=== PATIENT | female | born 1990 | race Caucasian/White ===

== ENCOUNTER 2023-02-22 21:21 | Outpatient (REF) | payer OTHER, SELFPAY ==
[2023-02-27 12:08] LABS: Age Gdln ACOG Testing Note (.); HPV Aptima Negative (Negative); IGP, Aptima HPV, rfx 16/18,45 Note (.)
== END 2023-02-22 21:22 | disposition home or self-care (01) ==
LOC: LAB 21:21
PROVIDERS: Visit Provider Obstetrics & Gynecology
DX: Z01.419 Encounter for gynecological examination (general) (routine) without abnormal findings (principal)
CPT/HCPCS: G0145

== ENCOUNTER 2024-03-23 12:28 | Outpatient (OUT) | payer OTHER, SELFPAY ==
[2024-03-23 13:15] LABS: HCG Quantitative 32 mIU/mL
== END 2024-03-23 12:29 | disposition home or self-care (01) ==
LOC: LAB 12:29
PROVIDERS: Visit Provider Obstetrics & Gynecology
DX: N92.6 Irregular menstruation, unspecified (principal)
CPT/HCPCS: 36415; 84702

== ENCOUNTER 2024-03-25 12:27 | Outpatient (OUT) | payer OTHER, SELFPAY ==
--- OUTSIDE RECORDS SUMMARY | 2024-03-25 12:31 | XMS_ITS | CCD ---
Author Organization [facility] CliniSymt Care Team Providers Care Esthetician Name Role Phone NEFTALY, DR COCHRAN Attending Unavailable REQUEST, DR TALBOT LISTED Primary Care Unavaila ble NEFTALY, DR COCHRAN Admitting Unavailable NEFTALY, DR COCHRAN Admitting Unavailable REQUEST, DR TALBOT LISTED Primary Care Unavaila ble NEFTALY, DR COCHRAN Attending Unavailable NEFTALY, DR COCHRAN Attending Unavailable NEFTALY, DR COCHRAN Admitting Unavailable REQUEST, NONE LISTED Primary Care Unavaila ble NEFTALY, DR COCHRAN Admitting Unavailable NEFTALY, DR COCHRAN Attending Unavailable REQUEST, NONE LISTED Primary Care Unavaila ble NEFTALY, DR COCHRAN Consulting Unavailable NEFTALY, DR COCHRAN Admitting Unavailable NEFTALY, DR COCHRAN Attending Unavailable REQUEST, DR TALBOT LISTED Primary Care Unavaila ble KARASIPavan, DR LOTT Consulting Unavailable MARENGO, DR POLLO Gonzalez Consulting Unavailable NEFTALY, DR COCHRAN Consulting Unavailable NEFTALY, DR COCHRAN Procedure Practitioner Unavailab RICCARDO Crespo Consulting Unavailable BEATRIZ, DR LOTT Consulting Unavailable REQUEST, DR TALBOT LISTED Primary Care Unavaila ble KARBRIT, DR LOTT Admitting Unavailable KARASIK, DR LOTT Attending Unavailable REQUEST, DR TALBOT LISTED Primary Care Unavaila RICCARDO Alejo Admitting Unavailable RICCARDO GARNER Attending Unavailable NEFTALY, DR COCHRAN Consulting Unavailable SOPHIA, DR SCOTT Daniels Consulting Unavailable RICCARDO GARNER Consulting Unavailable REQUEST, DR TALBOT LISTED Primary Care Unavaila RICCARDO Alejo Consulting Unavailable RICCARDO GARNER Admitting Unavailable RICCARDO GARNER Attending Unavailable NEFTALY, DR COCHRAN Admitting Unavailable NEFTALY, DR COCHRAN Attending Unavailable REQUEST, DR TALBOT LISTED Primary Care Unavaila ble NeftalySammie carranza DO Unavailable Medications Current Medications Medication Drug Class(es) Dates Sig (Normalized) Sig (Original) Progesterone 200 MG suppository (1 source) Start: 2024 End: 04-20-2024 Progesterone 200 MG suppository Indications: History of miscarriage Insert 200 mg into the vagina at bedtime Insert suppository vaginally every night at bedtime until 12 weeks gestation 30 suppository 2024 04/20/2024 Active Problems Active Problems Problem Classification Problem Date Documented Date Episodic/Chronic Headache; including migraine (1 source) Headache; including migraine; Translations: [HEADACHE UNSPECIFIED] Onset: 12-22-2020 Immunizations and screening for infectious disease (1 source) Encounter for screening for human papillomavirus (HPV); Translations: [ENC SCREENING HUMAN PAPILLOMAVIRUS] Onset: 09-20-2021 Episodic Other screening for suspected conditions (not mental disorders or infectious disease) (4 sources) Encounter for screening for malignant neoplasm of cervix; Translations: [ENC SCREENING MALIG NEOPLASM CERV] Onset: 09-16-2021 Episodic Unclassified (1 source) CONTACT W/AND (SUSP) EXPOS COVID-19; Translations: [CONTACT W/AND (SUSP) EXPOS COVID-19] Onset: 12-22-2020 Past or Other Problems Problem Classification Problem Date Documented Da te Episodic/Chronic Diabetes or abnormal glucose tolerance complicating ; childbirth; or the puerperium (6 sources) Gestational diabetes mellitus in childbirth, diet controlled; Translations: [Gestational diabetes mellitus in , diet controlled] Onset: 12-03-2020 Episodic Hypertension complicating ; childbirth and the puerperium (3 sources) Unspecified pre-eclampsia, complicating childbirth; Translations: [UNSPECIFIED PRE-ECLAMPSIA COMP CB] Onset: 12-08-2020 Episodic OB-related trauma to perineum and vulva (1 source) First degree perineal laceration during delivery; Translations: [FIRST DEG PERINEAL LAC DUR DELIV] Onset: 12-22-2020 Episodic Other complications of ; puerperium affecting management of mother (1 source) Abnormality in heart rate and rhythm complicating labor and delivery; Translations: [ABN FETL HEART RATE RHYTHM COMP L AND D] Onset: 12-22-2020 Episodic Other complications of (4 sources) Supervision of other high risk pregnancies, third trimester; Translations: [SUP OTH HIGH RISK 3RD TRI] Onset: 12-01-2020 Episodic Other complications of (4 sources) Supervision of with history of pre-term labor, third trimester; Translations: [SUP PREG W/HX PRE-TERM LABR 3RD TRI] Onset: 11-27-2020 Episodic Other and delivery including normal (1 source) Single live ; Translations: [SINGLE LIVE ] Onset: 12-22-2020 Episodic Residual codes; unclassified (1 source) 36 weeks gestation of ; Translations: [36 WEEKS GESTATION OF ] Onset: 12-22-2020 Episodic Residual codes; unclassified (1 source) 35 weeks gestation of ; Translations: [35 WEEKS GESTATION OF ] Onset: 12-11-2020 Episodic Residual codes; unclassified (1 source) 34 weeks gestation of ; Translations: [34 WEEKS GESTATION OF ] Onset: 12-02-2020 Episodic Results Test Name Value Interpretation Reference Range Facility [facility] PREG QUANT HCGon 024 HCG QUANTITATIVE 32 mIU/mL [facility] [place] [facility] Comment on above: 5-50 0.2-1 WEEK 50-500 1-2 WEEKS 100-5,000 2-3 WEEKS 500-10,000 3-4 WEEKS 1,000-50,000 4-5 WEEKS 10,000-100,000 5-6 WEEKS 15,000-200,000 6-8 WEEKS 10,000-100,000 2-3 MONTHS [facility] PAP ACOG PANEL 2: 21 to 29on 09-22-2021 . . [facility] Comment on above: Performed By: #### 4 [id number] #### [facility] [address] [address] [address] Yariel Huynh Age Gdln ACOG Testing - Normal [facility] Comment on above: Performed By: #### 4 [id number] #### [facility] [address] [address] [address] Yariel Huynh DIAGNOSIS: Comment [facility] Comment on above: Result Comment: NEGA TIVE FOR INTRAEPITHELIAL LESION OR MALIGNANCY. Performed By: #### 4 [id number] #### [facility] [address] [address] [address] Yariel Huynh Methodology: Comment [facility] Comment on above: Result Comment: This liquid based ThinPrep(R) pap test was screened with the use of an image guided system. Performed By: #### 4 [id number] #### [facility] [address] [place] [address] Dr. Yariel Huynh Note: Comment Normal [facility] Comment on above: Result Comment: The Pap smear is a screening test designed to aid in the detection of premalignant and malignant conditions of the uterine cervix. It is not a diagnostic procedure and should not be used as the sole means of detecting cervical cancer. Both false-positive and false-negative reports do occur. . Performed By: #### 4 [id number] #### [facility] [address] [place] [address] Dr. Yariel Huynh Performed by: Comment Normal [facility] Comment on above: Result Comment: Carole Lee, [employer] (ASCP) Performed By: #### 4 [id number] #### [facility] [address] [place] [address] Dr. Yariel Huynh Reflex Criteria: Comment Normal [facility] Comment on above: Result Comment: The HPV DNA reflex criteria were not met with this specimen result therefore, no HPV testing was performed. . Performed By: #### 4 [id number] #### [facility] [address] [place] [address] Dr. Yariel Huynh Specimen adequacy: Comment Normal [facility] Comment on above: Result Comment: Sati sfactory for evaluation. Endocervical and/or squamous metaplastic cells (endocervical component) are present. Performed By: #### 4 [id number] #### [facility] [address] [place] [address] Dr. Yariel Huynh RUBELLA AB IGGon 12-10-2020 Rubella Antibodies, IgG 1.46 index Normal Immune >0.[address] [facility] Comment on above: Result Comment: Non- immune <0.90 Equivocal 0.90 - 0.99 Immune >0.99 Performed By: #### R [id number] #### [facility] [address] [place] [address] Clyde Ramachandran CBC AUTO DIFFon 12-09-2020 BASO # 0.1 103/ul Normal 0.0-0.[address] [facility] Comment on above: Performed By: #### 4 [id number] #### [facility] [address] [place] [address] Dr. Yariel Huynh Basophils/100 WBC (Bld) 0.3 % Normal 0.2-2.[address] [facility] Comment on above: Performed By: #### 4 [id number] #### [facility] [address] [place] [address] Dr. Yariel Huynh EO # 0.0 103/ul Normal 0.0-0.[address] [facility] Comment on above: Performed By: #### 4 [id number] #### [facility] [address] [place] [address] Dr. Yariel Huynh Eosinophils/100 WBC (Bld) 0.1 % Critically low 0.9-7.[address] [facility] Comment on above: Performed By: #### 4 [id number] #### [facility] [address] [place] [address] Dr. Yariel Huynh Erythrocyte distribution width (RBC) [Ratio] 13.9 % Normal 11.0-15.[address] [facility] Comment on above: Performed By: #### 4 [id number] #### [facility] [address] [place] [address] Dr. Yariel Huynh Hematocrit (Bld) [Volume fraction] 29.5 % Critically low 36.0-48.[address] [facility] Comment on above: Performed By: #### 4 [id number] #### [facility] [address] [place] [address] Dr. Yariel Huynh Hemoglobin (Bld) [Mass/Vol] 9.3 g/dL Critically low 12.0-16.[address] [facility] Comment on above: Performed By: #### 4 [id number] #### [facility] [address] [place] [address] Dr. Yariel Huynh IG # 0.08 10e3/ul Critically high 0.00-0.03 [facility] Comment on above: Performed By: #### 4 [id number] #### [facility] [address] [place] [address] Dr. Yariel Huynh IG % 0.5 % Normal 0.0-0.[address] [facility] Comment on above: Performed By: #### 4 [id number] #### [facility] [address] [address] [address] Yariel Huynh LYMPH # 1.7 103/ul Normal 1.2-3.[address] [facility] Comment on above: Performed By: #### 4 [id number] #### [facility] [address] [address] [address] Yariel Huynh Lymphocytes/100 WBC (Bld) 10.8 % Critically low 20.5-60.[address] [facility] Comment on above: Performed By: #### 4 [id number] #### [facility] [address] [place] [address] Dr. Yariel Huynh MANUAL DIFF REQ NO Normal [facility] Comment on above: Performed By: #### 4 [id number] #### [facility] [address] [place] [address] Dr. Yariel Huynh MCH (RBC) [Entitic mass] 26.2 pg Critically low 26.7-34.[address] [facility] Comment on above: Performed By: #### 4 [id number] #### [facility] [address] [place] [address] Dr. Yariel Huynh MCHC (RBC) [Mass/Vol] 31.5 g/dL Normal 29.9-35.[address] [facility] Comment on above: Performed By: #### 4 [id number] #### [facility] [address] [place] [address] Dr. Yariel Huynh MCV (RBC) [Entitic vol] 83.1 fL Normal 81.0-99.[address] [facility] Comment on above: Performed By: #### 4 [id number] #### [facility] [address] [place] [address] Dr. Yariel Huynh MONO # 0.8 103/ul Normal 0.3-0.[address] [facility] Comment on above: Performed By: #### 4 [id number] #### [facility] [address] [place] [address] Dr. Yariel Huynh Monocytes/100 WBC (Bld) 5.2 % Normal 1.7-12.[address] [facility] Comment on above: Performed By: #### 4 [id number] #### [facility] [address] [address] [address] Yariel Huynh NEUT # 12.8 103/ul Critically high 1.4-6.5 [facility] Comment on above: Performed By: #### 4 [id number] #### [facility] [address] [address] [address] Yariel Huynh Neutrophils/100 WBC (Bld) 83.1 % Critically high 43.0-75.0 [facility] Comment on above: Performed By: #### 4 [id number] #### [facility] [address] [place] [address] Dr. Yariel Huynh Platelet mean volume (Bld) [Entitic vol] 12.6 fL Normal 9.5-13.5 [facility] Comment on above: Performed By: #### 4 [id number] #### [facility] [address] [place] [address] Dr. Yariel Huynh PLT 203 103/ul Normal 150-450 [facility] Comment on above: Performed By: #### 4 [id number] #### [facility] [address] [place] [address] Dr. Yariel Huynh RBC 3.55 106/ul Critically low 4.20-5.40 [facility] Comment on above: Performed By: #### 4 [id number] #### [facility] [address] [place] [address] Dr. Yariel Huynh WBC 15.4 103/ul Critically high 4.0-11.0 [facility] Comment on above: Performed By: #### 4 [id number] #### [facility] [address] [place] [address] Dr. Yariel Huynh ASYMPTOMATIC COVID-19 ANTIGE Non 12-08-2020 EUA Statement SEE BELOW Normal [facility] Comment on above: Result Comment: This test has not been FDA cleared or approved, but has been authorized by the FDA under an Emergency Use Authorization (EUA) for use by authorized laboratories certified under CLIA that meet the requirements to perform moderate or high complexity testing. This test has been authorized only for the detection of proteins from SARS-CoV-2, not for any other viruses or pathogens. The emergency use of this test is authorized for the duration of the declaration that circumstances exist justifying the authorization of emergency use of in vitro diagnostic tests for detection and/or diagnosis of Covid-19 under section 564(b)(1) of the Act, 21 U.S.C. 360bbb-3(b)(1), unless the declaration is terminated or authorization is revoked sooner. Performed By: #### 4 [id number] #### [facility] [address] [place] [address] Dr. Yariel Huynh SARS-CoV-2 (COVID-19) RNA ESTEBAN+probe Ql (Unsp spec) Negative Normal NEGATIVE [facility] Comment on above: Result Comment: Nega tive results are presumptive. They do not preclude infection and should not be used as the sole basis for treatment decisions. Additional confirmatory testing by a molecular method should be considered. Performed By: #### 4 [id number] #### [facility] [address] [place] [address] Dr. Yariel Huynh BUNon 12-08-2020 Urea nitrogen [Mass/Vol] 15.0 mg/dL Normal 7.0-17.[address] [facility] Comment on above: Performed By: #### 4 [id number] #### [facility] [address] [place] [address] Dr. Yariel Huynh CBC AUTO DIFFon 12-08-2020 BASO # 0.0 103/ul Normal 0.0-0.[address] [facility] Comment on above: Performed By: #### 4 [id number] #### [facility] [address] [place] [address] Dr. Yariel Huynh Basophils/100 WBC (Bld) 0.3 % Normal 0.2-2.[address] [facility] Comment on above: Performed By: #### 4 [id number] #### [facility] [address] [place] [address] Dr. Yariel Huynh EO # 0.0 103/ul Normal 0.0-0.7 [facility] Comment on above: Performed By: #### 4 [id number] #### [facility] [address] [place] [address] Dr. Yariel Huynh Eosinophils/100 WBC (Bld) 0.4 % Critically low 0.9-7.[address] [facility] Comment on above: Performed By: #### 4 [id number] #### [facility] [address] [place] [address] Dr. Yariel Huynh Erythrocyte distribution width (RBC) [Ratio] 13.8 % Normal 11.0-15.[address] [facility] Comment on above: Performed By: #### 4 [id number] #### [facility] [address] [place] [address] Dr. Yariel Huynh Hematocrit (Bld) [Volume fraction] 31.8 % Critically low 36.0-48.[address] [facility] Comment on above: Performed By: #### 4 [id number] #### [facility] [address] [place] [address] Dr. Yariel Huynh Hemoglobin (Bld) [Mass/Vol] 10.1 g/dL Critically low 12.0-16.[address] [facility] Comment on above: Performed By: #### 4 [id number] #### [facility] [address] [place] [address] Dr. Yariel Huynh IG # 0.07 10e3/ul Critically high 0.00-0.03 [facility] Comment on above: Performed By: #### 4 [id number] #### [facility] [address] [place] [address] Dr. Yariel Huynh IG % 0.7 % Critically high 0.0-0.5 [facility] Comment on above: Performed By: #### 4 [id number] #### [facility] [address] [place] [address] Dr. Yariel Huynh LYMPH # 2.3 103/ul Normal 1.2-3.8 [facility] Comment on above: Performed By: #### 4 [id number] #### [facility] [address] [place] [address] Dr. Yariel Huynh Lymphocytes/100 WBC (Bld) 22.7 % Normal 20.5-60.0 [facility] Comment on above: Performed By: #### 4 [id number] #### [facility] [address] [place] [address] Dr. Yariel Huynh MANUAL DIFF REQ NO Normal [facility] Comment on above: Performed By: #### 4 [id number] #### [facility] [address] [place] [address] Dr. Yarile Huynh MCH (RBC) [Entitic mass] 26.7 pg Normal 26.7-34.0 [facility] Comment on above: Performed By: #### 4 [id number] #### [facility] [address] [place] [address] Dr. Yariel Huynh MCHC (RBC) [Mass/Vol] 31.8 g/dL Normal 29.9-35.2 [facility] Comment on above: Performed By: #### 4 [id number] #### [facility] [address] [place] [address] Dr. Yariel Huynh MCV (RBC) [Entitic vol] 84.1 fL Normal 81.0-99.0 [facility] Comment on above: Performed By: #### 4 [id number] #### [facility] [address] [place] [address] Dr. Yariel Huynh MONO # 0.6 103/ul Normal 0.3-0.8 [facility] Comment on above: Performed By: #### 4 [id number] #### [facility] [address] [place] [address] Dr. Yariel Huynh Monocytes/100 WBC (Bld) 6.3 % Normal 1.7-12.0 [facility] Comment on above: Performed By: #### 4 [id number] #### [facility] [address] [place] [address] Dr. Yariel Huynh NEUT # 7.0 103/ul Critically high 1.4-6.5 [facility] Comment on above: Performed By: #### 4 [id number] #### [facility] [address] [place] [address] Dr. Yariel Huynh Neutrophils/100 WBC (Bld) 69.6 % Normal 43.0-75.[address] [facility] Comment on above: Performed By: #### 4 [id number] #### [facility] [address] [place] [address] Dr. Yariel Huynh Platelet mean volume (Bld) [Entitic vol] 12.9 fL Normal 9.5-13.[address] [facility] Comment on above: Performed By: #### 4 [id number] #### [facility] [address] [place] [address] Dr. Yariel Huynh PLT 193 103/ul Normal 150-450 [facility] Comment on above: Performed By: #### 4 [id number] #### [facility] [address] [place] [address] Dr. Yariel Huynh RBC 3.78 106/ul Critically low 4.20-5.40 [facility] Comment on above: Performed By: #### 4 [id number] #### [facility] [address] [place] [address] Dr. Yariel Huynh WBC 10.1 103/ul Normal 4.0-11.[address] [facility] Comment on above: Performed By: #### 4 [id number] #### [facility] [address] [place] [address] Dr. Yariel Huynh CREATININEon 12-08-2020 Creatinine [Mass/Vol] 0.80 mg/dL Normal 0.52-1.[address] [facility] Comment on above: Performed By: #### L DH, URIC, AST, ALT, BUN, CREA #### [facility] [address] [place] [address] Clyde Madie EGFR-AF JAMAICAN >60 Normal >=60 [facility] Comment on above: Performed By: #### L DH, URIC, AST, ALT, BUN, CREA #### [facility] [address] [place] [address] Clyde Madie EGFR-NON AF JAMAICAN >60 Normal >=[address] [facility] Comment on above: Performed By: #### L DH, URIC, AST, ALT, BUN, CREA #### [facility] [address] [place] [address] Clyde Ramachandran DRUG SCREEN RAPID (URINE)on 12-08-2020 AMP Negative Normal NEGATIVE [facility] Comment on above: Performed By: #### 4 [id number] #### [facility] [address] [place] [address] Dr. Yariel Huynh BAR Negative Normal NEGATIVE [facility] Comment on above: Performed By: #### 4 [id number] #### [facility] [address] [place] [address] Dr. Yariel Huynh BUP Negative Normal NEGATIVE [facility] Comment on above: Performed By: #### 4 [id number] #### [facility] [address] [place] [address] Dr. Yariel Huynh BZO Negative Normal NEGATIVE [facility] Comment on above: Performed By: #### 4 [id number] #### [facility] [address] [place] [address] Dr. Yariel Huynh ROSA Negative Normal NEGATIVE [facility] Comment on above: Performed By: #### 4 [id number] #### [facility] [address] [place] [address] Dr. Yariel Huynh CUT-OFFS SEE BELOW Normal [facility] Comment on above: Result Comment: AMP (Amphetamine): 500ng/mL, BAR (Barbituates): 200 ng/mL, BZO (Benzodiazepines): 150 ng/mL, BUP (Buprenorphine): 10 ng/mL, ROSA (Cocaine): 150 ng/mL, mAMP (Methamphetamine): 500 ng/mL, MTD (Methadone): 200 ng/mL, OPI (Opiates): 100 ng/mL, OXY (Oxycodone): 100 ng/mL, PCP (Phencyclidine): 25 ng/mL, PPX (Propoxyphene): 300 ng/mL, THC (Cannabinoids): 50 ng/mL, TCA (Trycyclic Antidepressants): 300 ng/mL Performed By: #### 4 [id number] #### [facility] [address] [place] [address] Dr. Yariel Huynh DRUG CUT HEADER DRUG CLASS TEST SYST EM CUT-OFF CONCENTRATIONS ARE FOLLOWS: Normal [facility] Comment on above: Performed By: #### 4 [id number] #### [facility] [address] [place] [address] Dr. Yariel Huynh mAMP Negative Normal NEGATIVE [facility] Comment on above: Performed By: #### 4 [id number] #### [facility] [address] [place] [address] Dr. Yariel Huynh MTD Negative Normal NEGATIVE [facility] Comment on above: Performed By: #### 4 [id number] #### [facility] [address] [place] [address] Dr. Yariel Huynh OPI Negative Normal NEGATIVE [facility] Comment on above: Performed By: #### 4 [id number] #### [facility] [address] [place] [address] Dr. Yariel Huynh OXY Negative Normal NEGATIVE [facility] Comment on above: Performed By: #### 4 [id number] #### [facility] [address] [place] [address] Dr. Yariel Huynh PCP Negative Normal NEGATIVE [facility] Comment on above: Performed By: #### 4 [id number] #### [facility] [address] [place] [address] Dr. Yariel Huynh PPX Negative Normal NEGATIVE [facility] Comment on above: Performed By: #### 4 [id number] #### [facility] [address] [place] [address] Dr. Yariel Huynh TCA Negative Normal NEGATIVE [facility] Comment on above: Performed By: #### 4 [id number] #### [facility] [address] [place] [address] Dr. Yariel Huynh THC Negative Normal NEGATIVE [facility] Comment on above: Performed By: #### [id number] #### [facility] [address] [place] [address] Dr. Yariel Huynh LDHon 12-08-2020 LDH 163 U/L Normal 122-[address] [facility] Comment on above: Performed By: #### L DH, URIC, AST, ALT, BUN, CREA #### [facility] [address] [place] [id number] Clyde Ramachandran SGOTon 12-08-2020 AST [Catalytic activity/Vol] 15 U/L Normal 14-[address] [facility] Comment on above: Performed By: #### L DH, URIC, AST, ALT, BUN, CREA #### [facility] [address] [place], [place] [id number] Clyde Ramachandran SGPTon 12-08-2020 ALT [Catalytic activity/Vol] 12 U/L Normal 9-52 [facility] Comment on above: Performed By: #### L DH, URIC, AST, ALT, BUN, CREA #### [facility] [address] [place] [address] Clyde Ramachandran TYPE AND SCREENon 12-08-2020 TYPE AND SCREEN Negative Normal [facility] Comment on above: Performed By: #### T NS #### [facility] [address] [place] [address] Clyde Ramachandran URIC ACID SERUMon 12-08-2020 Urate [Mass/Vol] 5.0 mg/dL Normal 2.5-6.2 [facility] Comment on above: Performed By: #### L DH, URIC, AST, ALT, BUN, CREA #### [facility] [address] [place], [place] [id number] Clyde Ramachandran US PREG BIOPHY W NON STRESSo n 12-08-2020 US PREG BIOPHY W NON STRESS EXAMINATION: US PREG BIOPHY W NON STRESS HISTORY: High risk COMPARISON: No relevant comparison available. TECHNIQUE: Ultrasound biophysical profile was performed in the radiology department. non-reactive stress testing was performed by nursing staff in the birthing center. FINDINGS: BREATHING MOVEMENTS: 2.0 GROSS BODY MOVEMENTS: 2.0 TONE: 2.0 QUALITATIVE AMNIOTIC FLUID VOLUME: 2.0 PRESENTATION: Cephalic HEART RATE: 137.8 bpm H.B./min AMNIOTIC FLUID VOLUME: 12.9 cm cm GESTATIONAL AGE: 36 weeks 2 days CONCLUSION: Total biophysical profile score: 8.0 Electronically authenticated by: POLLO PABLO Date: 2020-12-08 08:45 Normal [facility] US PREG BIOPHY W NON STRESSo n 12-01-2020 US PREG BIOPHY W NON STRESS EXAMINATION: US PREG BIOPHY W NON STRESS HISTORY: High risk COMPARISON: Ultrasound biophysical 11/24/2020 TECHNIQUE: Ultrasound biophysical profile was performed in the radiology department. non-reactive stress testing was performed by nursing staff in the birthing center. FINDINGS: BREATHING MOVEMENTS: 2.0 GROSS BODY MOVEMENTS: 2.0 TONE: 2.0 QUALITATIVE AMNIOTIC FLUID VOLUME: 2.0 PRESENTATION: CEPHALIC HEART RATE: 135.7 bpm AMNIOTIC FLUID VOLUME: 16.1 cm GESTATIONAL AGE: 35 weeks 2 days IMPRESSION: Total biophysical profile score: 8.0 Electronically authenticated by: SCOTT CORTES Date: 2020-12-01 10:[address] [facility] Encounters Encounter Date Encounter Type Care Provider Facility Start: 03-23-2024 End: 03-23-2024 Clinisync Result Encounter Sammie Higginbotham DO Work Phone: [facility] Unsolicited Start: 03-23-2024 End: 03-23-2024 Clinisync Result Encounter Sammie Higginbotham DO Work Phone: [facility] Unsolicited Start: 09-16-2021 End: 09-16-[address] SAMMIE HIGGINBOTHAM Facility:[facility] Start: 01-05-[address] SAMMIE HIGGINBOTHAM Facility :[facility] Start: 12-29-[address] SAMMIE HIGGINBOTHAM Facility :[facility] Start: 12-22-[address] SAMMIE HIGGINBOTHAM Facility :[facility] Start: 12-15-[address] SAMMIE HIGGINBOTHAM Facility :[facility] Start: 12-08-2020 End: 12-12-2020 Evaluation and management of inpatient DR SAMMIE HIGGINBOTHAM Facility:[facility] Start: 12-04-2020 End: 12-04-[address] KAYLIE HENDERSON Facility:[facility] Start: 12-01-2020 End: 12-01-2020 ambulatory NONE LISTED REQUEST Facility:[facility] Start: 11-27-2020 End: 11-27-2020 ambulatory NONE LISTED REQUEST Facility: Procedures Date Procedure Procedure Detail Performing Clinician Start: 03-23-2024 [facility] PREG QUANT HCG Core y Neftayl DO Work Phone: Start: 12-08-2020 Delivery of Products of Conception, External Approach DR SAMMIE HIGGINBOTHAM Start: 12-08-2020 Drainage of Amniotic Fluid, Therapeutic from Products of Conception, Via Natural or Artificial Opening DR SAMMIE HIGGINBOTHAM Start: 12-08-2020 Introduction of Othe r Hormone into Peripheral Vein, Percutaneous Approach DR SAMMIE HIGGINBOTHAM Start: 12-08-2020 Repair Perineum Skin , External Approach DR SAMMIE HIGGINBOTHAM Plan of Treatment Date Care Activity Detail Author Start: 03-15-2028 Screening for malign ant neoplasm of cervix [facility] Start: 04-19-2024 End: 04-19-2024 ambulatory 04/19/2024 10:00 AM EST Initial [facility] [address] [place] [address] [facility] Start: 04-19-2024 End: 04-19-2024 Professional / ancillary services management 04/19/2024 9:30 AM EST Ancillary Procedure [facility] [address] [place] [address] [facility] Start: 02-04-2024 Influenza vaccination Influenza Vacc ine (#1) [facility] Start: 2013 Screening for malign ant neoplasm of cervix Pap Smear [facility] Immunizations Immunization Date Immunization Notes Care Provider Khai [facility] 05-09-2019 influenza virus vacc ine, unspecified formulation Sammie Higginbotham DO Work Phone: [facility] Payers Date Payer Category Payer Private Health Insurance [facility] [employer] .[id number] 1992 Unknown [id number] 1992 Unknown [id number] [id number] .593 1992 Unknown [id number] [id number] .593 1992 Unknown [id number] .593 1992 Unknown [id number] [id number] .593 1992 Unknown [id number] [id number] .593 1992 Unknown [id number] [id number] .593 1992 Unknown [id number] [id number] .593 1992 Unknown [id number] [id number] .593 1959 Self-pay [id number] 1959 Unknown [id number] Social History Date Type Detail Facility Tobacco smoking stat [facility] Tobacco smoking consumption unknown [facility] Start: 1992 Sex assigned at Not on file [facility] Gender identity Not [facility] file [facility] are Summary Purpose Family History No Family History Records Found Advance Directives No Advanced Directives Records Found Additional Source Comments INFORMATION SOURCE (unrecogn ized section and content) DATE CREATED AUTHOR 11/24/2021 [facility] Care Teams (unrecognized sec tion and content) Esthetician Relationship Specialty Start Date End Date Sammie Higginbotham DO [address] [place], [place] [address] [address] PCP - [facility] 09/04/23 FOR RECORDS PERTAINING TO PATIENTS WHO ARE OR HAVE BEEN ENROLLED IN A CHEMICAL DEPENDENCY/SUBSTANCEABUSE PROGRAM, SOME INFORMATION MAY BE OMITTED. This clinical summary was aggregated from multiple sources. Caution should be exercised in using it in the provision of clinical care. This summary normalizes information from multiple sources, and as a consequence, information in this document may materially change the coding, format and clinical context of patient data. In addition, data may be omitted in some cases. CLINICAL DECISIONS SHOULD BE BASED ON THE PRIMARY CLINICAL RECORDS. [employer] [facility]. provides no warranty or guarantee of the accuracy or completeness of information in this document.
[2024-03-25 13:46] LABS: HCG Quantitative 22 mIU/mL
== END 2024-03-25 12:28 | disposition home or self-care (01) ==
PROVIDERS: Visit Provider Obstetrics & Gynecology
DX: N92.6 Irregular menstruation, unspecified (principal)
CPT/HCPCS: 36415; 84702

== ENCOUNTER 2024-03-29 06:28 | Outpatient (OUT) | payer OTHER, SELFPAY ==
--- OUTSIDE RECORDS SUMMARY | 2024-03-29 06:31 | XMS_ITS | CCD ---
Author Organization [facility] CliniSyak Care Team Providers Care [employer] Name Role Phone NEFTALY, DR COCHRAN Attending [...] Unavaila ble KARASIPavan, DR LOTT Consulting Unavailable RIVERVIEW, DR POLLO Gonzalez Consulting Unavailable NEFTALY, DR [...] NEFTALY, DR COCHRAN Attending Unavailable REQUEST, DR ATLBOT LISTED Primary Care Unavaila ble NeftalySammie carranza DO Unavailable Medications Current Medications Medication Drug Class(es) Dates Sig (Normalized) Sig (Original) Progesterone 200 MG suppository (2 sources) Start: 2024 End: 04-20-2024 Progesterone 200 MG [...] Test Name Value Interpretation Reference Range Facility [facility] PREG QUANT HCGon 03-25- 024 HCG QUANTITATIVE 22 mIU/mL [facility] Comment on above: 5-50 0.2-1 WEEK 50-500 1-2 WEEKS 100-5,000 2-3 WEEKS 500-10,000 3-4 WEEKS 1,000-50,000 4-5 WEEKS 10,000-100,000 5-6 WEEKS 15,000-200,000 6-8 WEEKS 10,000-100,000 2-3 MONTHS [facility] PREG QUANT HCGon 03-23- 024 HCG QUANTITATIVE 32 mIU/mL [facility] Comment on above: 5-50 0.2-1 WEEK 50-500 1-2 WEEKS 100-5,000 2-3 WEEKS 500-10,000 3-4 WEEKS 1,000-50,000 4-5 WEEKS 10,000-100,000 5-6 WEEKS 15,000-200,000 6-8 WEEKS 10,000-100,000 2-3 MONTHS [facility] PAP ACOG PANEL 2: 23 to 29on 09-22-2021 . . [facility] Comment on above: Performed By: #### 4 [id number] #### [facility] [address] [place] [address] Dr. Yariel Huynh Age Gdln ACOG Testing - Normal [facility] Comment on above: Performed By: #### 4 [id number] #### [facility] [address] [place] [address] Dr. Yariel Huynh DIAGNOSIS: Comment Normal [facility] Comment on above: Result Comment: NEGA TIVE FOR INTRAEPITHELIAL LESION OR MALIGNANCY. Performed By: #### 4 [id number] #### [facility] [address] [place] [address] Dr. Yariel Huynh Methodology: Comment Normal [facility] Comment on above: Result Comment: This liquid based ThinPrep(R) pap test was screened with the use of an image guided system. Performed By: #### 4 [id number] #### [facility] [address] [place] [address] Dr. Yariel Huynh Note: Comment Normal [facility] Comment on above: Result Comment: The Pap smear is a screening test designed to aid in the detection of premalignant and malignant conditions of the uterine cervix. It is not a diagnostic procedure and should not be used as the sole means of detecting cervical cancer. Both false-positive and false-negative reports do occur. . Performed By: #### 4 [id number] #### [facility] [address] [place] [address] Dr. Yariel Huynh Performed by: Comment Normal [facility] Comment on above: Result Comment: Carole Lee Machine Taper (ASCP) Performed By: #### 4 [id number] #### [facility] [address] [place] [address] Dr. Yariel Huynh Reflex Criteria: Comment Normal [facility] Comment on above: Result Comment: The HPV DNA reflex criteria were not met with this specimen result therefore, no HPV testing was performed. . Performed By: #### 4 [id number] #### [facility] [address] [place] [address] Dr. Yariel Huynh Specimen adequacy: Comment Normal [facility] Comment on above: Result Comment: Sati sfactory for evaluation. Endocervical and/or squamous metaplastic cells (endocervical component) are present. Performed By: #### 4 [id number] #### [facility] [address] [place] [address] Dr. Yariel Huynh RUBELLA AB IGGon 12-10-2020 Rubella Antibodies, IgG 1.46 index Normal Immune >0.99 [facility] Comment on above: Result Comment: Non- immune <0.90 Equivocal 0.90 - 0.99 Immune >0.99 Performed By: #### R UBIGG #### [facility] [address] [place] [address] Clyde Ramachandran CBC AUTO DIFFon 12-09-2020 BASO # 0.1 103/ul Normal 0.0-0.1 [facility] Comment on above: Performed By: #### 4 [id number] #### [facility] [address] [place] [address] Dr. Yariel Huynh Basophils/100 WBC (Bld) 0.3 % Normal 0.2-2.0 [facility] Comment on above: Performed By: #### 4 [id number] #### [facility] [address] [place] [address] Dr. Yariel Huynh EO # 0.0 103/ul Normal 0.0-0.7 [facility] Comment on above: Performed By: #### 4 [id number] #### [facility] [address] [place] [address] Dr. Yariel Huynh Eosinophils/100 WBC (Bld) 0.1 % Critically low 0.9-7.0 [facility] Comment on above: Performed By: #### 4 [id number] #### [facility] [address] [place] [address] Dr. Yariel Huynh Erythrocyte distribution width (RBC) [Ratio] 13.9 % Normal 11.0-15.0 [facility] Comment on above: Performed By: #### 4 [id number] #### [facility] [address] [place] [address] Dr. Yariel Huynh Hematocrit (Bld) [Volume fraction] 29.5 % Critically low 36.0-48.0 [facility] Comment on above: Performed By: #### 4 [id number] #### [facility] [address] [place] [address] Dr. Yariel Huynh Hemoglobin (Bld) [Mass/Vol] 9.3 g/dL Critically low 12.0-16.0 [facility] Comment on above: Performed By: #### 4 [id number] #### [facility] [address] [place] [address] Dr. Yariel Huynh IG # 0.08 10e3/ul Critically high 0.00-0.03 [facility] Comment on above: Performed By: #### 4 [id number] #### [facility] [address] [place] [address] Dr. Yariel Huynh IG % 0.5 % Normal 0.0-0.5 [facility] Comment on above: Performed By: #### 4 [id number] #### [facility] [address] [place] [address] Dr. Yariel Huynh LYMPH # 1.7 103/ul Normal 1.2-3.8 [facility] Comment on above: Performed By: #### 4 [id number] #### [facility] [address] [place] [address] Dr. Yariel Huynh Lymphocytes/100 WBC (Bld) 10.8 % Critically low 20.5-60.0 [facility] Comment on above: Performed By: #### 4 [id number] #### [facility] [address] [place] [address] Dr. Yariel Huynh MANUAL DIFF REQ NO Normal [facility] Comment on above: Performed By: #### 4 [id number] #### [facility] [address] [place] [address] Dr. Yariel Huynh MCH (RBC) [Entitic mass] 26.2 pg Critically low 26.7-34.0 [facility] Comment on above: Performed By: #### 4 [id number] #### [facility] [address] [place] [address] Dr. Yariel Huynh MCHC (RBC) [Mass/Vol] 31.5 g/dL Normal 29.9-35.2 [facility] Comment on above: Performed By: #### 4 [id number] #### [facility] [address] [place] [address] Dr. Yariel Huynh MCV (RBC) [Entitic vol] 83.1 fL Normal 81.0-99.0 [facility] Comment on above: Performed By: #### 4 [id number] #### [facility] [address] [place] [address] Dr. Yariel Huynh MONO # 0.8 103/ul Normal 0.3-0.8 [facility] Comment on above: Performed By: #### 4 [id number] #### [facility] [address] [place] [address] Dr. Yariel Huyhn Monocytes/100 WBC (Bld) 5.2 % Normal 1.7-12.0 [facility] Comment on above: Performed By: #### 4 [id number] #### [facility] [address] [place] [address] Dr. Yariel Huynh NEUT # 12.8 103/ul Critically high 1.4-6.5 [facility] Comment on above: Performed By: #### 4 [id number] #### [facility] [address] [place] [address] Dr. Yariel Huynh Neutrophils/100 WBC (Bld) 83.1 % Critically high 43.0-75.0 [facility] Comment on above: Performed By: #### 4 [id number] #### [facility] [address] [place] [address] Dr. Yariel Huynh Platelet mean volume (Bld) [Entitic vol] 12.6 fL Normal 9.5-13.5 [facility] Comment on above: Performed By: #### 4 [id number] #### [facility] [address] [place] [address] Dr. Yariel Huynh PLT 203 103/ul Normal 150-450 [facility] Comment on above: Performed By: #### 4 [id number] #### [facility] [address] [place] [address] Dr. Yariel Huynh RBC 3.55 106/ul Critically low 4.20-5.40 [facility] Comment on above: Performed By: #### 4 [id number] #### [facility] [address] [place] [address] Dr. Yariel Huynh WBC 15.4 103/ul Critically high 4.0-11.0 [facility] Comment on above: Performed By: #### 4 [id number] #### [facility] [address] [place] [address] Dr. Yariel Huynh ASYMPTOMATIC COVID-19 ANTIGE Non 12-08-2020 EUA Statement SEE BELOW Normal [facility] Comment on above: Result Comment: This [...] is revoked sooner. Performed By: #### 4 [id number] #### [facility] [address] [place] [address] Dr. Yariel Huynh SARS-CoV-2 (COVID-19) RNA ESTEBAN+probe Ql (Unsp spec) Negative Normal NEGATIVE [facility] Comment on above: Result Comment: Nega tive results are presumptive. They do not preclude infection and should not be used as the sole basis for treatment decisions. Additional confirmatory testing by a molecular method should be considered. Performed By: #### 4 [id number] #### [facility] [address] [place] [address] Dr. Yariel Huynh BUNon 12-08-2020 Urea nitrogen [Mass/Vol] 15.0 mg/dL Normal 7.0-17.0 [facility] Comment on above: Performed By: #### 4 [id number] #### [facility] [address] [place] [address] Dr. Yariel Huynh CBC AUTO DIFFon 12-08-2020 BASO # 0.0 103/ul Normal 0.0-0.1 [facility] Comment on above: Performed By: #### 4 [id number] #### [facility] [address] [place] [address] Dr. Yariel Huynh Basophils/100 WBC (Bld) 0.3 % Normal 0.2-2.0 [facility] Comment on above: Performed By: #### 4 [id number] #### [facility] [address] [place] [address] Dr. Yariel Huynh EO # 0.0 103/ul Normal 0.0-0.7 [facility] Comment on above: Performed By: #### 4 [id number] #### [facility] [address] [place] [address] Dr. Yariel Huynh Eosinophils/100 WBC (Bld) 0.4 % Critically low 0.9-7.0 [facility] Comment on above: Performed By: #### 4 [id number] #### [facility] [address] [place] [address] Dr. Yariel Huynh Erythrocyte distribution width (RBC) [Ratio] 13.8 % Normal 11.0-15.0 [facility] Comment on above: Performed By: #### 4 [id number] #### [facility] [address] [place] [address] Dr. Yariel Huynh Hematocrit (Bld) [Volume fraction] 31.8 % Critically low 36.0-48.0 [facility] Comment on above: Performed By: #### 4 [id number] #### [facility] [address] [place] [address] Dr. Yariel Huynh Hemoglobin (Bld) [Mass/Vol] 10.1 g/dL Critically low 12.0-16.0 [facility] Comment on above: Performed By: #### 4 [id number] #### [facility] [address] [place] [address] Dr. Yariel Huynh IG # 0.07 10e3/ul Critically high 0.00-0.03 [facility] Comment on above: Performed By: #### 4 [id number] #### [facility] [address] [place] [address] Dr. Yariel Huynh IG % 0.7 % Critically high 0.0-0.5 [facility] Comment on above: Performed By: #### 4 [id number] #### [facility] [address] [place] [address] Dr. Yariel Huynh LYMPH # 2.3 103/ul Normal 1.2-3.8 [facility] Comment on above: Performed By: #### 4 [id number] #### [facility] [address] [place] [address] Dr. Yariel Huynh Lymphocytes/100 WBC (Bld) 22.7 % Normal 20.5-60.0 [facility] Comment on above: Performed By: #### 4 [id number] #### [facility] [address] [place] [address] Dr. Yariel Huynh MANUAL DIFF REQ NO Normal [facility] Comment on above: Performed By: #### 4 [id number] #### [facility] [address] [place] [address] Dr. Yariel Huynh MCH (RBC) [Entitic mass] 26.7 pg Normal 26.7-34.0 [facility] Comment on above: Performed By: #### 4 [id number] #### [facility] [address] [place] [address] Dr. Yariel Huynh MCHC (RBC) [Mass/Vol] 31.8 g/dL Normal 29.9-35.2 [facility] Comment on above: Performed By: #### 4 [id number] #### [facility] [address] [place] [address] Dr. Yariel Huynh MCV (RBC) [Entitic vol] 84.1 fL Normal 81.0-99.0 [facility] Comment on above: Performed By: #### 4 [id number] #### [facility] [address] [place] [address] Dr. Yariel Huynh MONO # 0.6 103/ul Normal 0.3-0.8 [facility] Comment on above: Performed By: #### 4 [id number] #### [facility] [address] [place] [address] Dr. Yariel Huynh Monocytes/100 WBC (Bld) 6.3 % Normal 1.7-12.0 [facility] Comment on above: Performed By: #### 4 [id number] #### [facility] [address] [place] [address] Dr. Yariel Huynh NEUT # 7.0 103/ul Critically high 1.4-6.5 [facility] Comment on above: Performed By: #### 4 [id number] #### [facility] [address] [place] [address] Dr. Yariel Huynh Neutrophils/100 WBC (Bld) 69.6 % Normal 43.0-75.0 [facility] Comment on above: Performed By: #### 4 [id number] #### [facility] [address] [place] [address] Dr. Yariel Huynh Platelet mean volume (Bld) [Entitic vol] 12.9 fL Normal 9.5-13.5 [facility] Comment on above: Performed By: #### 4 [id number] #### [facility] [address] [place] [address] Dr. Yariel Huynh PLT 193 103/ul Normal 150-450 [facility] Comment on above: Performed By: #### 4 [id number] #### [facility] [address] [place] [address] Dr. Yariel Huynh RBC 3.78 106/ul Critically low 4.20-5.40 [facility] Comment on above: Performed By: #### 4 [id number] #### [facility] [address] [place] [address] Dr. Yariel Huynh WBC 10.1 103/ul Normal 4.0-11.0 [facility] Comment on above: Performed By: #### 4 [id number] #### [facility] [address] [place] [address] Dr. Yariel Huynh CREATININEon 12-08-2020 Creatinine [Mass/Vol] 0.80 mg/dL Normal 0.52-1.04 [facility] Comment on above: Performed By: #### L DH, URIC, AST, ALT, BUN, CREA #### [facility] [address] [place] [address] Clyde Ramachandran EGFR-AF GABONESE >60 Normal >=60 [facility] Comment on above: Performed By: #### L DH, URIC, AST, ALT, BUN, CREA #### [facility] [address] [place] [address] Clyde Ramachandran EGFR-NON AF GABONESE >60 Normal >=60 [facility] Comment on above: Performed By: #### L DH, URIC, AST, ALT, BUN, CREA #### [facility] [address] [place] [address] Clyde Ramachandran DRUG SCREEN RAPID (URINE)on 12-08-2020 AMP Negative Normal NEGATIVE [facility] Comment on above: Performed By: #### 4 [id number] #### [facility] [address] [place] [address] Dr. Yariel Huynh BAR Negative Normal NEGATIVE [facility] Comment on above: Performed By: #### 4 [id number] #### [facility] [address] [place] [address] Dr. Yariel Huynh BUP Negative Normal NEGATIVE [facility] Comment on above: Performed By: #### 4 [id number] #### [facility] [address] [place] [address] Dr. Yariel Huynh BZO Negative Normal NEGATIVE [facility] Comment on above: Performed By: #### 4 [id number] #### [facility] [address] [place] [address] Dr. Yariel Huynh ROSA Negative Normal NEGATIVE [facility] Comment on above: Performed By: #### 4 [id number] #### [facility] [address] [place] [address] Dr. Yariel Huynh CUT-OFFS SEE BELOW Normal [facility] Comment on above: Result Comment: AMP (Amphetamine): 500ng/mL, BAR (Barbituates): 200 ng/mL, BZO (Benzodiazepines): 150 ng/mL, BUP (Buprenorphine): 10 ng/mL, ROSA (Cocaine): 150 ng/mL, mAMP (Methamphetamine): 500 ng/mL, MTD (Methadone): 200 ng/mL, OPI (Opiates): 100 ng/mL, OXY (Oxycodone): 100 ng/mL, PCP (Phencyclidine): 25 ng/mL, PPX (Propoxyphene): 300 ng/mL, THC (Cannabinoids): 50 ng/mL, TCA (Trycyclic Antidepressants): 300 ng/mL Performed By: #### 4 [id number] #### [facility] [address] [place] [address] Dr. Yariel Huynh DRUG CUT HEADER DRUG CLASS TEST SYST EM CUT-OFF CONCENTRATIONS ARE FOLLOWS: Normal [facility] Comment on above: Performed By: #### 4 [id number] #### [facility] [address] [place] [address] Dr. Yariel Huynh mAMP Negative Normal NEGATIVE [facility] Comment on above: Performed By: #### 4 [id number] #### [facility] [address] [place] [address] Dr. Yariel Huynh MTD Negative Normal NEGATIVE [facility] Comment on above: Performed By: #### 4 [id number] #### [facility] [address] [place] [address] Dr. Yariel Huynh OPI Negative Normal NEGATIVE [facility] Comment on above: Performed By: #### 4 [id number] #### [facility] [address] [place] [address] Dr. Yariel Huynh OXY Negative Normal NEGATIVE [facility] Comment on above: Performed By: #### 4 [id number] #### [facility] [address] [place] [address] Dr. Yariel Huynh PCP Negative Normal NEGATIVE [facility] Comment on above: Performed By: #### 4 [id number] #### [facility] [address] [place] [address] Dr. Yariel Huynh PPX Negative Normal NEGATIVE [facility] Comment on above: Performed By: #### 4 [id number] #### [facility] [address] [place] [address] Dr. Yariel Huynh TCA Negative Normal NEGATIVE [facility] Comment on above: Performed By: #### 4 [id number] #### [facility] [address] [place] [address] Dr. Yariel Huynh THC Negative Normal NEGATIVE [facility] Comment on above: Performed By: #### 4 [id number] #### [facility] [address] [place] [address] Dr. Yariel Huynh LDHon 12-08-2020 LDH 163 U/L Normal 122-222 [facility] Comment on above: Performed By: #### L DH, URIC, AST, ALT, BUN, CREA #### [facility] [address] [place] [address] Clyde Ramachandran SGOTon 12-08-2020 AST [Catalytic activity/Vol] 15 U/L Normal 14-36 [facility] Comment on above: Performed By: #### L DH, URIC, AST, ALT, BUN, CREA #### [facility] [address] [place] [address] Clyde Ramachandran SGPTon 12-08-2020 ALT [Catalytic activity/Vol] 12 U/L Normal 9-52 [facility] Comment on above: Performed By: #### L DH, URIC, AST, ALT, BUN, CREA #### [facility] [address] [place] [address] Clyde Madie TYPE AND SCREENon 12-08-2020 TYPE AND SCREEN Negative Normal [facility] Comment on above: Performed By: #### T NS #### [facility] [address] [place] [address] Clyde Ramachandran URIC ACID SERUMon 12-08-2020 Urate [Mass/Vol] 5.0 mg/dL Normal 2.5-6.2 [facility] Comment on above: Performed By: #### L DH, URIC, AST, ALT, BUN, CREA #### [facility] [address] [place] [address] Clydejustyn Ramachandran US PREG BIOPHY W NON STRESSo [...] by: POLLO PABLO Date: 2020-12-08 08:45 Normal [facility] US PREG BIOPHY W NON STRESSo n [...] by: SCOTT CORTES Date: 2020-12-01 10:52 Normal [facility] Encounters Encounter Date Encounter Type Care Provider Facility Start: 03-25-2024 End: 03-25-2024 [facility]inis[facility] Result Encounter Sammie Neftaly DO Work Phone: [facility] Unsolicited Start: 03-25-2024 End: 03-25-2024 [facility] Result Encounter Sammie Neftaly DO Work Phone: [facility] Unsolicited Start: 03-23-2024 End: 03-23-2024 [facility] Result Encounter Sammie Neftaly DO Work Phone: [facility] Unsolicited Start: 03-23-2024 End: 03-23-2024 [facility] Result Encounter Sammie Neftaly DO Work Phone: [facility] Unsolicited Start: 09-16-2021 End: 09-16-[address] SAMMIE HIGGINBOTHAM Facility: Start: 01-05-[address] SAMMIE HIGGINBOTHAM Facility [...] Date Procedure Procedure Detail Performing Clinician Start: 03-25-2024 [facility] HCG Core y Neftaly DO Work Phone: Start: 03-23-2024 [facility] HCG Core y Neftaly DO Work Phone: Start: 12-08-2020 Delivery of [...] Screening for malign ant neoplasm of cervix [facility] Start: 04-19-2024 End: 04-19-2024 ambulatory 04/19/2024 10:00 AM EST Initial [facility] [address] [place] [address] [facility] Start: 04-19-2024 End: 04-19-2024 Professional / ancillary services management 04/19/2024 9:30 AM EST Ancillary Procedure [facility] [address] [place] [address] [facility] Start: 02-04-2024 Influenza vaccination Influenza Vacc ine (#1) [facility] Start: 2013 Screening for malign ant neoplasm of cervix Pap Smear [facility] Immunizations Immunization Date Immunization Notes Care Provider Khai lopez 05-09-2019 influenza virus vacc ine, unspecified formulation Sammie Higginbotham DO Work Phone: [facility] Payers Date Payer Category Payer Private Health Insurance [facility] [id number] 1992 Unknown [id number] 1992 Unknown [id number] .593 1992 Unknown [id number] .593 1992 Unknown [id number] [id number] .593 1992 Unknown [id number] [id number] .593 1992 Unknown [id number] [id number] .593 1992 Unknown [id number] [id number] .593 1992 Unknown [id number] [id number] .593 1992 Unknown [id number] [id number] .593 1959 Self-pay [id number] 1959 Unknown [id number] Social History Date Type Detail Facility [facility] consumption [facility] Start: 1990 Sex assigned at Not on file [facility] Gender identity Not on file [facility] are Summary Purpose Family History No Family History Records Found Advance Directives No Advanced Directives Records Found Additional Source Comments INFORMATION SOURCE (unrecogn ized section and content) DATE CREATED AUTHOR 11/24/2021 [facility] Care Teams (unrecognized sec tion and content) [employer] Relationship Specialty Start Date End Date Sammie Higginbotham DO [address] [place] [address] [place] [address] PCP - [facility] 09/04/23 FOR RECORDS PERTAINING TO PATIENTS WHO [...] BE BASED ON THE PRIMARY CLINICAL RECORDS. [facility] [employer] [facility]. provides no warranty or guarantee of the accuracy or completeness of information in this document.
[2024-03-29 07:15] LABS: HCG Quantitative 15 mIU/mL
--- OUTSIDE RECORDS SUMMARY | 2024-04-01 10:37 | XMS_ITS | CCD ---
Author Organization [facility] CliniSyme Care Team Providers Care Freezer Person Name Role Phone NEFTALY, DR COCHRAN Attending Unavailable REQUEST, DR TALBOT LISTED Primary Care Unavaila ble NEFTALY, DR COCHRAN Admitting Unavailable NEFTALY, DR COCHRAN Admitting Unavailable REQUEST, DR TALBOT LISTED Primary Care Unavaila ble NEFTALY, DR COCHRAN Attending Unavailable NEFTALY, DR COCHRAN Attending Unavailable NEFTALY, DR COCHRAN Admitting Unavailable REQUEST, NONE LISTED Primary Care Unavaila ble NETFALY, DR COCHRAN Admitting Unavailable NEFTALY, DR COCHRAN Attending Unavailable REQUEST, NONE LISTED Primary Care Unavaila ble NEFTALY, DR COCHRAN Consulting Unavailable NEFTALY, DR COCHRAN Admitting Unavailable NEFTALY, DR COCHRAN Attending Unavailable REQUEST, DR TALBOT LISTED Primary Care Unavaila ble KARASIPavan, DR LOTT Consulting Unavailable HARTFORD, DR POLLO Gonzalez Consulting Unavailable NEFTALY, DR [...] DR TALBOT LISTED Primary Care Unavaila ble NetfalySammie carranza DO Unavailable Medications Current Medications Medication Drug Class(es) Dates Sig (Normalized) Sig (Original) Progesterone 200 MG suppository (3 sources) Start: 2024 End: 04-20-2024 Progesterone 200 [...] Results Test Name Value Interpretation Reference Range [facility] PREG QUANT HCGon 25-2 024 HCG QUANTITATIVE 15 mIU/mL [facility] Comment on above: 5-50 0.2-1 WEEK 50-500 1-2 WEEKS 100-5,000 2-3 WEEKS 500-10,000 3-4 WEEKS 1,000-50,000 4-5 WEEKS 10,000-100,000 5-6 WEEKS 15,000-200,000 6-8 WEEKS 10,000-100,000 2-3 MONTHS [facility] PREG QUANT HCGon -21-2 024 HCG QUANTITATIVE 22 mIU/mL [facility] Comment on above: 5-50 0.2-1 WEEK 50-500 1-2 WEEKS 100-5,000 2-3 WEEKS 500-10,000 3-4 WEEKS 1,000-50,000 4-5 WEEKS 10,000-100,000 5-6 WEEKS 15,000-200,000 6-8 WEEKS 10,000-100,000 2-3 MONTHS [facility] PREG QUANT HCGon 10-19-2 024 HCG QUANTITATIVE 32 mIU/mL [facility] Comment on above: 5-50 0.2-1 WEEK 50-500 1-2 WEEKS 100-5,000 2-3 WEEKS 500-10,000 3-4 WEEKS 1,000-50,000 4-5 WEEKS 10,000-100,000 5-6 WEEKS 15,000-200,000 6-8 WEEKS 10,000-100,000 2-3 MONTHS [facility] PAP ACOG PANEL 2: 23 to 29on 09-22-2021 . . Normal [facility] Comment on above: Performed By: #### 4 [id number] #### [facility] [address] [place] [address] Dr. Yariel Huynh Age Gdln ACOG Testing 23- [facility] Comment on above: Performed By: #### 4 [id number] #### [facility] [address] [place] [address] Dr. Yariel Huynh DIAGNOSIS: Comment [facility] Comment on above: Result Comment: NEGA TIVE FOR INTRAEPITHELIAL LESION OR MALIGNANCY. Performed By: #### 4 [id number] #### [facility] [address] [place] [address] Dr. Yariel Huynh Methodology: Comment [facility] Comment on above: Result Comment: This liquid based ThinPrep(R) pap test was screened with the use of an image guided system. Performed By: #### 4 [id number] #### [facility] [address] [place] [address] Dr. Yariel Huynh Note: Comment [facility] Comment on above: Result Comment: The Pap smear is a screening test designed to aid in the detection of premalignant and malignant conditions of the uterine cervix. It is not a diagnostic procedure and should not be used as the sole means of detecting cervical cancer. Both false-positive and false-negative reports do occur. . Performed By: #### 4 [id number] #### [facility] [address] [place] [address] Dr. Yariel Huynh Performed by: Comment Normal [facility] Comment on above: Result Comment: Carole Lee Lumber Tripper (ASCP) Performed By: #### 4 [id number] #### [facility] [address] [place] [address] Dr. Yariel Huynh Reflex Criteria: Comment [facility] Comment on above: Result Comment: The HPV DNA reflex criteria were not met with this specimen result therefore, no HPV testing was performed. . Performed By: #### 4 [id number] #### [facility] [address] [place] [address] Dr. Yariel Huynh Specimen adequacy: Comment Normal [facility] Comment on above: Result Comment: Sati sfactory for evaluation. Endocervical and/or squamous metaplastic cells (endocervical component) are present. Performed By: #### 4 [id number] #### [facility] [address] [place] [address] Dr. Yariel Huynh RUBELLA AB IGGon 12-10-2020 Rubella Antibodies, IgG 1.46 index Normal Immune >0.99 [facility] Comment on above: Result Comment: Non- immune <0.90 Equivocal 0.90 - 0.99 Immune >0.99 Performed By: #### R UBIGG #### [facility] [address] [place] [address] Clyde Ramachandran CBC AUTO DIFFon 12-09-2020 BASO # 0.1 103/ul Normal 0.0-0.1 [facility] Comment on above: Performed By: #### 4 [id number] #### [facility] [address] [place] [address] Dr. Yariel Huynh Basophils/100 WBC (Bld) 0.3 % Normal 0.2-2.0 [facility] Comment on above: Performed By: #### 4 [id number] #### [facility] [address] [place] [address] Dr. Yariel Huynh EO # 0.0 103/ul Normal 0.0-0.7 [facility] Comment on above: Performed By: #### 4 [id number] #### [facility] [address] [place] [address] Dr. Yariel Huynh Eosinophils/100 WBC (Bld) 0.1 % Critically low 0.9-7.0 [facility] Comment on above: Performed By: #### 4 [id number] #### [facility] [address] [place] [address] Dr. Yariel Huynh Erythrocyte distribution width (RBC) [Ratio] 13.9 % Normal 11.0-15.0 [facility] Comment on above: Performed By: #### 4 [id number] #### [facility] [address] [place] [address] Dr. Yariel Huynh Hematocrit (Bld) [Volume fraction] 29.5 % Critically low 36.0-48.0 [facility] Comment on above: Performed By: #### 4 [id number] #### [facility] [address] [place] [address] Dr. Yariel Huynh Hemoglobin (Bld) [Mass/Vol] 9.3 g/dL Critically low 12.0-16.0 [facility] Comment on above: Performed By: #### 4 [id number] #### [facility] [address] [place] [address] Dr. Yariel Huynh IG # 0.08 10e3/ul Critically high 0.00-0.03 [facility] Comment on above: Performed By: #### 4 [id number] #### [facility] [address] [place] [address] Dr. Yariel Huynh IG % 0.5 % Normal 0.0-0.5 [facility] Comment on above: Performed By: #### 4 [id number] #### [facility] [address] [place] [address] Dr. Yariel Huynh LYMPH # 1.7 103/ul Normal 1.2-3.8 [facility] Comment on above: Performed By: #### 4 [id number] #### [facility] [address] [place] [address] Dr. Yariel Huynh Lymphocytes/100 WBC (Bld) 10.8 % Critically low 20.5-60.0 [facility] Comment on above: Performed By: #### 4 [id number] #### [facility] [address] [place] [address] Dr. Yariel Huynh MANUAL DIFF REQ NO Normal [facility] Comment on above: Performed By: #### 4 [id number] #### [facility] [address] [place] [address] Dr. Yariel Huynh MCH (RBC) [Entitic mass] 26.2 pg Critically low 26.7-34.0 [facility] Comment on above: Performed By: #### 4 [id number] #### [facility] [address] [place] [address] Dr. Yariel Huynh MCHC (RBC) [Mass/Vol] 31.5 g/dL Normal 29.9-35.2 [facility] Comment on above: Performed By: #### 4 [id number] #### [facility] [address] [place] [address] Dr. Yariel Huynh MCV (RBC) [Entitic vol] 83.1 fL Normal 81.0-99.0 [facility] Comment on above: Performed By: #### 4 [id number] #### [facility] [address] [place] [address] Dr. Yariel Huynh MONO # 0.8 103/ul Normal 0.3-0.8 [facility] Comment on above: Performed By: #### 4 [id number] #### [facility] [address] [place] [address] Dr. Yariel Huynh Monocytes/100 WBC (Bld) 5.2 % Normal 1.7-12.0 [facility] Comment on above: Performed By: #### 4 [id number] #### [facility] [address] [place] [address] Dr. Yariel Huynh NEUT # 12.8 103/ul Critically high 1.4-6.5 [facility] Comment on above: Performed By: #### 4 [id number] #### [facility] [address] [place] [address] Dr. Yariel Huynh Neutrophils/100 WBC (Bld) 83.1 % Critically high 43.0-75.0 [facility] Comment on above: Performed By: #### 4 [id number] #### [facility] [address] [place] [address] Dr. Yariel Huynh Platelet mean volume (Bld) [Entitic vol] 12.6 fL Normal 9.5-13.5 [facility] Comment on above: Performed By: #### 4 [id number] #### [facility] [address] [place] [address] Dr. Yariel Huynh PLT 203 103/ul Normal 150-450 [facility] Comment on above: Performed By: #### 4 [id number] #### [facility] [address] [address] [address] Yariel Huynh RBC 3.55 106/ul Critically low 4.20-5.40 [facility] Comment on above: Performed By: #### 4 [id number] #### [facility] [address] [address] [address] Yariel Huynh WBC 15.4 103/ul Critically high 4.0-11.0 [facility] Comment on above: Performed By: #### 4 [id number] #### [facility] [address] [address] [address] Yariel Huynh ASYMPTOMATIC COVID-19 ANTIGE Non 12-08-2020 EUA Statement SEE BELOW Normal [facility] Comment on above: Result Comment: This [...] is revoked sooner. Performed By: #### 4 [id number] #### [facility] [id number] Yariel Huynh SARS-CoV-2 (COVID-19) RNA ESTEBAN+probe Ql (Unsp spec) Negative Normal NEGATIVE [facility] Comment on above: Result Comment: Nega tive results are presumptive. They do not preclude infection and should not be used as the sole basis for treatment decisions. Additional confirmatory testing by a molecular method should be considered. Performed By: #### 4 [id number] #### [facility] [address] [place] [address] Dr. Yariel Huynh BUNon 12-08-2020 Urea nitrogen [Mass/Vol] 15.0 mg/dL Normal 7.0-17.0 [facility] Comment on above: Performed By: #### 4 [id number] #### [facility] [address] [place] [address] Dr. Yariel Huynh CBC AUTO DIFFon 12-08-2020 BASO # 0.0 103/ul Normal 0.0-0.1 [facility] Comment on above: Performed By: #### 4 [id number] #### [facility] [address] [place] [address] Dr. Yariel Huynh Basophils/100 WBC (Bld) 0.3 % Normal 0.2-2.0 [facility] Comment on above: Performed By: #### 4 [id number] #### [facility] [address] [place] [address] Dr. Yariel Huynh EO # 0.0 103/ul Normal 0.0-0.7 [facility] Comment on above: Performed By: #### 4 [id number] #### [facility] [address] [place] [address] Dr. Yariel Huynh Eosinophils/100 WBC (Bld) 0.4 % Critically low 0.9-7.0 [facility] Comment on above: Performed By: #### 4 [id number] #### [facility] [address] [place] [address] Dr. Yariel Huynh Erythrocyte distribution width (RBC) [Ratio] 13.8 % Normal 11.0-15.0 [facility] Comment on above: Performed By: #### 4 [id number] #### [facility] [address] [place] [address] Dr. Yariel Huynh Hematocrit (Bld) [Volume fraction] 31.8 % Critically low 36.0-48.0 [facility] Comment on above: Performed By: #### 4 [id number] #### [facility] [address] [place] [address] Dr. Yariel Huynh Hemoglobin (Bld) [Mass/Vol] 10.1 g/dL Critically low 12.0-16.0 [facility] Comment on above: Performed By: #### 4 [id number] #### [facility] [address] [place] [address] Dr. Yariel Huynh IG # 0.07 10e3/ul Critically high 0.00-0.03 [facility] Comment on above: Performed By: #### 4 [id number] #### [facility] [address] [place] [address] Dr. Yariel Huynh IG % 0.7 % Critically high 0.0-0.5 [facility] Comment on above: Performed By: #### 4 [id number] #### [facility] [address] [place] [address] Dr. Yariel Huynh LYMPH # 2.3 103/ul Normal 1.2-3.8 [facility] Comment on above: Performed By: #### 4 [id number] #### [facility] [address] [place] [address] Dr. Yariel Huynh Lymphocytes/100 WBC (Bld) 22.7 % Normal 20.5-60.0 [facility] Comment on above: Performed By: #### 4 [id number] #### [facility] [address] [place] [address] Dr. Yariel Huynh MANUAL DIFF REQ NO Normal [facility] Comment on above: Performed By: #### 4 [id number] #### [facility] [address] [place] [address] Dr. Yariel Huynh MCH (RBC) [Entitic mass] 26.7 pg Normal 26.7-34.0 [facility] Comment on above: Performed By: #### 4 [id number] #### [facility] [address] [place] [address] Dr. Yariel Huynh MCHC (RBC) [Mass/Vol] 31.8 g/dL Normal 29.9-35.2 [facility] Comment on above: Performed By: #### 4 [id number] #### [facility] [address] [place] [address] Dr. Yariel Huynh MCV (RBC) [Entitic vol] 84.1 fL Normal 81.0-99.0 [facility] Comment on above: Performed By: #### 4 [id number] #### [facility] [address] [place] [address] Dr. Yariel Huynh MONO # 0.6 103/ul Normal 0.3-0.8 [facility] Comment on above: Performed By: #### 4 [id number] #### [facility] [address] [place] [address] Dr. Yariel Huynh Monocytes/100 WBC (Bld) 6.3 % Normal 1.7-12.0 [facility] Comment on above: Performed By: #### 4 [id number] #### [facility] [address] [place] [address] Dr. Yariel Huynh NEUT # 7.0 103/ul Critically high 1.4-6.5 [facility] Comment on above: Performed By: #### 4 [id number] #### [facility] [address] [place] [address] Dr. Yariel Huynh Neutrophils/100 WBC (Bld) 69.6 % Normal 43.0-75.0 [facility] Comment on above: Performed By: #### 4 [id number] #### [facility] [address] [place] [address] Dr. Yariel Huynh Platelet mean volume (Bld) [Entitic vol] 12.9 fL Normal 9.5-13.5 [facility] Comment on above: Performed By: #### 4 [id number] #### [facility] [address] [place] [address] Dr. Yariel Huynh PLT 193 103/ul Normal 150-450 [facility] Comment on above: Performed By: #### 4 [id number] #### [facility] [address] [place] [address] Dr. Yariel Huynh RBC 3.78 106/ul Critically low 4.20-5.40 [facility] Comment on above: Performed By: #### 4 [id number] #### [facility] [address] [place] [address] Dr. Yariel Huynh WBC 10.1 103/ul Normal 4.0-11.0 [facility] Comment on above: Performed By: #### 4 [id number] #### [facility] [address] [place] [address] Dr. Yariel Huynh CREATININEon 12-08-2020 Creatinine [Mass/Vol] 0.80 mg/dL Normal 0.52-1.04 [facility] Comment on above: Performed By: #### L DH, URIC, AST, ALT, BUN, CREA #### [facility] [address] [place] [address] Clyde Madie EGFR-AF CITIZEN OF [place] >60 Normal >=60 [facility] Comment on above: Performed By: #### L DH, URIC, AST, ALT, BUN, CREA #### [facility] [address] [place] [address] Cldyejustyn Delgadilloen EGFR-NON AF CITIZEN OF [place] >60 Normal >=60 [facility] Comment on above: Performed By: #### L DH, URIC, AST, ALT, BUN, CREA #### [facility] [address] [place] [address] Clyde Ramachandran DRUG SCREEN RAPID (URINE)on 12-08-2020 AMP Negative Normal NEGATIVE [facility] Comment on above: Performed By: #### 4 [id number] #### [facility] [address] [place] [address] Dr. Yariel Huynh BAR Negative Normal NEGATIVE [facility] Comment on above: Performed By: #### 4 [id number] #### [facility] [address] [place] [address] Dr. Yariel Huynh BUP Negative Normal NEGATIVE [facility] Comment on above: Performed By: #### 4 [id number] #### [facility] [address] [place] [address] Dr. Yariel Huynh BZO Negative Normal NEGATIVE [facility] Comment on above: Performed By: #### 4 [id number] #### [facility] [address] [place] [address] Dr. Yariel Huynh ROSA Negative Normal NEGATIVE [facility] Comment on above: Performed By: #### 4 [id number] #### [facility] [address] [place] [address] Dr. Yariel Huynh CUT-OFFS SEE BELOW Normal [facility] Comment on above: Result Comment: AMP (Amphetamine): 500ng/mL, BAR (Barbituates): 200 ng/mL, BZO (Benzodiazepines): 150 ng/mL, BUP (Buprenorphine): 10 ng/mL, ROSA (Cocaine): 150 ng/mL, mAMP (Methamphetamine): 500 ng/mL, MTD (Methadone): 200 ng/mL, OPI (Opiates): 100 ng/mL, OXY (Oxycodone): 100 ng/mL, PCP (Phencyclidine): 25 ng/mL, PPX (Propoxyphene): 300 ng/mL, THC (Cannabinoids): 50 ng/mL, TCA (Trycyclic Antidepressants): 300 ng/mL Performed By: #### 4 [id number] #### [facility] [address] [place] [address] Dr. Yariel Huynh DRUG CUT HEADER DRUG CLASS TEST SYST EM CUT-OFF CONCENTRATIONS ARE FOLLOWS: Normal [facility] Comment on above: Performed By: #### 4 [id number] #### [facility] [address] [place] [address] Dr. Yariel Huynh mAMP Negative Normal NEGATIVE [facility] Comment on above: Performed By: #### 4 [id number] #### [facility] [address] [place] [address] Dr. Yariel Huynh MTD Negative Normal NEGATIVE [facility] Comment on above: Performed By: #### 4 [id number] #### [facility] [address] [place] [address] Dr. Yariel Huynh OPI Negative Normal NEGATIVE [facility] Comment on above: Performed By: #### 4 [id number] #### [facility] [address] [place] [address] Dr. Yariel Huynh OXY Negative Normal NEGATIVE [facility] Comment on above: Performed By: #### 4 [id number] #### [facility] [address] [place] [address] Dr. Yariel Huynh PCP Negative Normal NEGATIVE [facility] Comment on above: Performed By: #### 4 [id number] #### [facility] [address] [place] [address] Dr. Yariel Huynh PPX Negative Normal NEGATIVE [facility] Comment on above: Performed By: #### 4 [id number] #### [facility] [address] [place] [address] Dr. Yariel Huynh TCA Negative Normal NEGATIVE [facility] Comment on above: Performed By: #### 4 [id number] #### [facility] [address] [place] [address] Dr. Yariel Huynh THC Negative Normal NEGATIVE [facility] Comment on above: Performed By: #### 4 [id number] #### [facility] [address] [place] [address] Dr. Yariel Huynh LDHon 12-08-2020 LDH 163 U/L Normal 122-222 [facility] Comment on above: Performed By: #### L DH, URIC, AST, ALT, BUN, CREA #### [facility] [address] [place] [address] Clyde Madie SGOTon 12-08-2020 AST [Catalytic activity/Vol] 15 U/L Normal 14-36 [facility] Comment on above: Performed By: #### L DH, URIC, AST, ALT, BUN, CREA #### [facility] [address] [place], [place] [id number] Clyde Madie SGPTon 12-08-2020 ALT [Catalytic activity/Vol] 12 U/L Normal 9-52 [facility] Comment on above: Performed By: #### L DH, URIC, AST, ALT, BUN, CREA #### [facility] [address] [place], [place] [id number] Clyde Madie TYPE AND SCREENon 12-08-2020 TYPE AND SCREEN Negative Normal [facility] Comment on above: Performed By: #### T NS #### [facility] [address] [place] [address] Clyde Madie URIC ACID SERUMon 12-08-2020 Urate [Mass/Vol] 5.0 mg/dL Normal 2.5-6.2 [facility] Comment on above: Performed By: #### L DH, URIC, AST, ALT, BUN, CREA #### [facility] [address] [place] [address] Clyde Ramachandran US PREG BIOPHY W NON [...] by: POLLO PABLO Date: 2020-12-08 08:45 Normal [facility] US PREG BIOPHY W NON STRESSo [...] CORTES Date: 2020-12-01 10:52 Normal [facility] Encounters Encounter Date Encounter Type Care Provider Facility Start: 03-29-2024 End: 03-29-2024 [facility] Result Encounter Sammie Neftaly DO Work Phone: [facility] External Department Unsolicited Start: 03-29-2024 End: 03-29-2024 [facility] Result Encounter Sammie Neftaly DO Work [...] 12-01-2020 End: 12-01-2020 ambulatory NONE LISTED REQUEST Facility: Start: 11-27-2020 End: 11-27-[address] NONE LISTED REQUEST Facility: Procedures Date Procedure Procedure Detail Performing Clinician Start: 03-29-2024 [facility] PREG QUANT HCG Core y Neftaly DO Work Phone: Start: 03-25-2024 [facility] PREG QUANT HCG Core y Neftaly DO Work Phone: Start: 03-23-2024 [facility] PREG QUANT HCG Core y Neftaly DO [...] Screening for malign ant neoplasm of cervix [facility] Start: 04-19-2024 End: 04-19-2024 ambulatory 04/19/2024 10:00 AM EST Initial [facility] [address] [place] [address] [facility] Start: 04-19-2024 End: 04-19-2024 Professional / ancillary services management 04/19/2024 9:30 AM EST Ancillary Procedure [facility] [address] [place] [address] [facility] Start: 02-04-2024 Influenza vaccination Influenza Vacc ine (#1) [facility] Start: 2013 Screening for malign ant neoplasm of cervix Pap Smear [facility] Immunizations Immunization Date Immunization Notes Care Provider Fa julio cesarty 05-09-2019 influenza virus vacc ine, unspecified formulation Sammie Higginbotham DO Work Phone: [facility] Payers Date Payer Category Payer Private Health Insurance [facility] [employer] [id number] 1992 Unknown [id number] 1992 Unknown [id number] .593 1992 Unknown [id number] .593 1992 Unknown [id number] [id number] .593 1992 Unknown [id number] .593 1992 Unknown [id number] .593 1992 Unknown [id number] [id number] .593 1992 Unknown [id number] [id number] .593 1992 Unknown [id number] .593 1959 Self-pay [id number] 1959 Unknown [id number] Social History Date Type Detail Facility Tobacco smoking stat [facility] Tobacco smoking consumption unknown [facility] Start: 1990 Sex assigned at Not on file [facility] Gender identity Not on file [facility] are Summary Purpose Family History No Family History Records Found Advance Directives No Advanced Directives Records Found Additional Source Comments INFORMATION SOURCE (unrecogn ized section and content) DATE CREATED AUTHOR 11/24/2021 [facility] Care Teams (unrecognized sec tion and content) Freezer Person Relationship Specialty Start Date End Date Sammie Higginbotham DO [address] [place] [address] [place] [address] PCP - [facility] 09/04/23 FOR RECORDS PERTAINING TO PATIENTS [...] BE BASED ON THE PRIMARY CLINICAL RECORDS. [facility]. provides no warranty or guarantee of the accuracy or completeness of information in this document.
== END 2024-03-29 06:29 | disposition home or self-care (01) ==
LOC: LAB 04-01 10:26
PROVIDERS: Visit Provider Obstetrics & Gynecology
DX: N92.6 Irregular menstruation, unspecified (principal)
CPT/HCPCS: 36415; 84702

== ENCOUNTER 2024-04-05 06:38 | Outpatient (RCR) | payer OTHER, SELFPAY ==
--- OUTSIDE RECORDS SUMMARY | 2024-04-05 06:43 | XMS_ITS | CCD ---
Author Organization [facility] Care Team Providers Care Jewelry Facer Name Role Phone NEFTALY, DR COCHRAN Attending [...] Unavaila ble KARASIPavan, DR LOTT Consulting Unavailable [place], DR POLLO Gonzalez Consulting Unavailable NEFTALY, DR [...] Results Test Name Value Interpretation Reference Range [facility] PREG QUANT HCGon 25-2 024 HCG QUANTITATIVE 15 mIU/mL [facility] Comment on above: 5-50 0.2-1 WEEK 50-500 1-2 WEEKS 100-5,000 2-3 WEEKS 500-10,000 3-4 WEEKS 1,000-50,000 4-5 WEEKS 10,000-100,000 5-6 WEEKS 15,000-200,000 6-8 WEEKS 10,000-100,000 2-3 MONTHS [facility] PREG QUANT HCGon -21-2 024 HCG QUANTITATIVE 22 mIU/mL [facility] Comment on above: 5-50 0.2-1 WEEK 50-500 1-2 WEEKS 100-5,000 2-3 WEEKS 500-10,000 3-4 WEEKS 1,000-50,000 4-5 WEEKS 10,000-100,000 5-6 WEEKS 15,000-200,000 6-8 WEEKS 10,000-100,000 2-3 MONTHS [facility] PREG QUANT HCGon 10-19-2 024 HCG QUANTITATIVE 32 mIU/mL [facility] Comment on above: 5-50 0.2-1 WEEK 50-500 1-2 WEEKS 100-5,000 2-3 WEEKS 500-10,000 3-4 WEEKS 1,000-50,000 4-5 WEEKS 10,000-100,000 5-6 WEEKS 15,000-200,000 6-8 WEEKS 10,000-100,000 2-3 [facility]S [facility] PAP ACOG PANEL 2: 21 to 29on 09-22-2021 . . Normal [facility] Comment on above: Performed By: #### 4 [id number] #### [facility] [address] [place] [address] Dr. Yariel Huynh Age Gdln ACOG Testing 23- [facility] Comment on above: Performed By: #### 4 [id number] #### [facility] [address] [place] [address] Dr. Yariel Huynh DIAGNOSIS: Comment [facility] Comment on above: Result Comment: NEGA TIVE FOR INTRAEPITHELIAL LESION OR MALIGNANCY. Performed By: #### 4 [id number] #### [facility] [address] [place] [address] Dr. Yariel Huynh Methodology: Comment [facility] Comment on above: Result Comment: This liquid based ThinPrep(R) pap test was screened with the use of an image guided system. Performed By: #### 4 [id number] #### [facility] [address] [place] [address] Dr. Yariel Huynh Note: Comment [facility] Comment on above: Result Comment: The Pap smear is a screening test designed to aid in the detection of premalignant and malignant conditions of the uterine cervix. It is not a diagnostic procedure and should not be used as the sole means of detecting cervical cancer. Both false-positive and false-negative reports do occur. . Performed By: #### 4 [id number] #### [facility] [address] [place] [address] Dr. Yariel Huynh Performed by: Comment Normal [facility] Comment on above: Result Comment: Carole Lee Business Analysis Analyst (ASCP) Performed By: #### 4 [id number] #### [facility] [address] [place] [address] Dr. Yariel Huynh Reflex Criteria: Comment [facility] Comment on above: Result Comment: The HPV DNA reflex criteria were not met with this specimen result therefore, no HPV testing was performed. . Performed By: #### 4 [id number] #### [facility] [address] [place] [address] Dr. Yariel Huynh Specimen adequacy: Comment Normal [facility] Comment on above: Result Comment: Sati sfactory for evaluation. Endocervical and/or squamous metaplastic cells (endocervical component) are present. Performed By: #### 4 [id number] #### [facility] [address] [place] [address] Dr. Yariel Huynh RUBELLA AB IGGon 12-10-2020 Rubella Antibodies, IgG 1.46 index Normal Immune >0.99 [facility] Comment on above: Result Comment: Non- immune <0.90 Equivocal 0.90 - 0.99 Immune >0.99 Performed By: #### R UBIGG #### [facility] [address] [place] [address] Clyde Ramachandran CBC AUTO DIFFon 12-09-2020 BASO # 0.1 103/ul Normal 0.0-0.1 [facility] Comment on above: Performed By: #### 4 [id number] #### [facility] [address] [place] [address] Dr. Yariel Huynh Basophils/100 WBC (Bld) 0.3 % Normal 0.2-2.0 [facility] Comment on above: Performed By: #### 4 [id number] #### [facility] [address] [place] [address] Dr. Yairel Huynh EO # 0.0 103/ul Normal 0.0-0.7 [facility] Comment on above: Performed By: #### 4 [id number] #### [facility] [address] [place] [address] Dr. Yariel Huynh Eosinophils/100 WBC (Bld) 0.1 % Critically low 0.9-7.0 [facility] Comment on above: Performed By: #### 4 [id number] #### [facility] [address] [place] [address] Dr. Yariel Huynh Erythrocyte distribution width (RBC) [Ratio] 13.9 % Normal 11.0-15.0 [facility] Comment on above: Performed By: #### 4 [id number] #### [facility] [address] [place] [address] Dr. Yariel Huynh Hematocrit (Bld) [Volume fraction] 29.5 % Critically low 36.0-48.0 [facility] Comment on above: Performed By: #### 4 [id number] #### [facility] [address] [place] [address] Dr. Yariel Huynh Hemoglobin (Bld) [Mass/Vol] 9.3 g/dL Critically low 12.0-16.0 [facility] Comment on above: Performed By: #### 4 [id number] #### [facility] [address] [place] [address] Dr. Yariel Huynh IG # 0.08 10e3/ul Critically high 0.00-0.03 [facility] Comment on above: Performed By: #### 4 [id number] #### [facility] [address] [place] [address] Dr. Yariel Huynh IG % 0.5 % Normal 0.0-0.5 [facility] Comment on above: Performed By: #### 4 [id number] #### [facility] [address] [place] [address] Dr. Yariel Huynh LYMPH # 1.7 103/ul Normal 1.2-3.8 [facility] Comment on above: Performed By: #### 4 [id number] #### [facility] [address] [place] [address] Dr. Yariel Huynh Lymphocytes/100 WBC (Bld) 10.8 % Critically low 20.5-60.0 [facility] Comment on above: Performed By: #### 4 [id number] #### [facility] [address] [place] [address] Dr. Yariel Huynh MANUAL DIFF REQ NO Normal [facility] Comment on above: Performed By: #### 4 [id number] #### [facility] [address] [place] [address] Dr. Yariel Huynh MCH (RBC) [Entitic mass] 26.2 pg Critically low 26.7-34.0 [facility] Comment on above: Performed By: #### 4 [id number] #### [facility] [address] [place] [address] Dr. Yariel Huynh MCHC (RBC) [Mass/Vol] 31.5 g/dL Normal 29.9-35.2 [facility] Comment on above: Performed By: #### 4 [id number] #### [facility] [address] [place] [address] Dr. Yariel Huynh MCV (RBC) [Entitic vol] 83.1 fL Normal 81.0-99.0 [facility] Comment on above: Performed By: #### 4 [id number] #### [facility] [address] [place] [address] Dr. Yariel Huynh MONO # 0.8 103/ul Normal 0.3-0.8 [facility] Comment on above: Performed By: #### 4 [id number] #### [facility] [address] [place] [address] Dr. Yariel Huynh Monocytes/100 WBC (Bld) 5.2 % Normal 1.7-12.0 [facility] Comment on above: Performed By: #### 4 [id number] #### [facility] [address] [place] [address] Dr. Yariel Huynh NEUT # 12.8 103/ul Critically high 1.4-6.5 [facility] Comment on above: Performed By: #### 4 [id number] #### [facility] [address] [place] [address] Dr. Yariel Huynh Neutrophils/100 WBC (Bld) 83.1 % Critically high 43.0-75.0 [facility] Comment on above: Performed By: #### 4 [id number] #### [facility] [address] [place] [address] Dr. Yariel Huynh Platelet mean volume (Bld) [Entitic vol] 12.6 fL Normal 9.5-13.5 [facility] Comment on above: Performed By: #### 4 [id number] #### [facility] [address] [place] [address] Dr. Yariel Huynh PLT 203 103/ul Normal 150-450 [facility] Comment on above: Performed By: #### 4 [id number] #### [facility] [address] [address] [address] Yariel Huynh RBC 3.55 106/ul Critically low 4.20-5.40 [facility] Comment on above: Performed By: #### 4 [id number] #### [facility] [address] [address] [address] Yariel Huynh WBC 15.4 103/ul Critically high 4.0-11.0 [facility] Comment on above: Performed By: #### 4 [id number] #### [facility] [address] [address] [address] Yariel Huynh ASYMPTOMATIC COVID-19 ANTIGE Non 12-08-2020 EUA Statement SEE BELOW Normal [facility] Comment on above: Result Comment: This test [...] is revoked sooner. Performed By: #### 4 [id number] #### [facility] [id number] Yariel Huynh SARS-CoV-2 (COVID-19) RNA ESTEBAN+probe Ql (Unsp spec) Negative Normal NEGATIVE [facility] Comment on above: Result Comment: Nega tive results are presumptive. They do not preclude infection and should not be used as the sole basis for treatment decisions. Additional confirmatory testing by a molecular method should be considered. Performed By: #### 4 [id number] #### [facility] [address] [place] [address] Dr. Yariel Huynh BUNon 12-08-2020 Urea nitrogen [Mass/Vol] 15.0 mg/dL Normal 7.0-17.0 [facility] Comment on above: Performed By: #### 4 [id number] #### [facility] [address] [place] [address] Dr. Yariel Huynh CBC AUTO DIFFon 12-08-2020 BASO # 0.0 103/ul Normal 0.0-0.1 [facility] Comment on above: Performed By: #### 4 [id number] #### [facility] [address] [place] [address] Dr. Yariel Huynh Basophils/100 WBC (Bld) 0.3 % Normal 0.2-2.0 [facility] Comment on above: Performed By: #### 4 [id number] #### [facility] [address] [place] [address] Dr. Yariel Huynh EO # 0.0 103/ul Normal 0.0-0.7 [facility] Comment on above: Performed By: #### 4 [id number] #### [facility] [address] [place] [address] Dr. Yariel Huynh Eosinophils/100 WBC (Bld) 0.4 % Critically low 0.9-7.0 [facility] Comment on above: Performed By: #### 4 [id number] #### [facility] [address] [place] [address] Dr. Yariel Huynh Erythrocyte distribution width (RBC) [Ratio] 13.8 % Normal 11.0-15.0 [facility] Comment on above: Performed By: #### 4 [id number] #### [facility] [address] [place] [address] Dr. Yariel Huynh Hematocrit (Bld) [Volume fraction] 31.8 % Critically low 36.0-48.0 [facility] Comment on above: Performed By: #### 4 [id number] #### [facility] [address] [place] [address] Dr. Yariel Huynh Hemoglobin (Bld) [Mass/Vol] 10.1 g/dL Critically low 12.0-16.0 [facility] Comment on above: Performed By: #### 4 [id number] #### [facility] [address] [place] [address] Dr. Yariel Huynh IG # 0.07 10e3/ul Critically high 0.00-0.03 [facility] Comment on above: Performed By: #### 4 [id number] #### [facility] [address] [place] [address] Dr. Yariel Huynh IG % 0.7 % Critically high 0.0-0.5 [facility] Comment on above: Performed By: #### 4 [id number] #### [facility] [address] [place] [address] Dr. Yariel Huynh LYMPH # 2.3 103/ul Normal 1.2-3.8 [facility] Comment on above: Performed By: #### 4 [id number] #### [facility] [address] [place] [address] Dr. Yariel Huynh Lymphocytes/100 WBC (Bld) 22.7 % Normal 20.5-60.0 [facility] Comment on above: Performed By: #### 4 [id number] #### [facility] [address] [place] [address] Dr. Yariel Huynh MANUAL DIFF REQ NO Normal [facility] Comment on above: Performed By: #### 4 [id number] #### [facility] [address] [place] [address] Dr. Yariel Huynh MCH (RBC) [Entitic mass] 26.7 pg Normal 26.7-34.0 [facility] Comment on above: Performed By: #### 4 [id number] #### [facility] [address] [place] [address] Dr. Yariel Huynh MCHC (RBC) [Mass/Vol] 31.8 g/dL Normal 29.9-35.2 [facility] Comment on above: Performed By: #### 4 [id number] #### [facility] [address] [place] [address] Dr. Yariel Huynh MCV (RBC) [Entitic vol] 84.1 fL Normal 81.0-99.0 [facility] Comment on above: Performed By: #### 4 [id number] #### [facility] [address] [place] [address] Dr. Yariel Huynh MONO # 0.6 103/ul Normal 0.3-0.8 [facility] Comment on above: Performed By: #### 4 [id number] #### [facility] [address] [place] [address] Dr. Yariel Huynh Monocytes/100 WBC (Bld) 6.3 % Normal 1.7-12.0 [facility] Comment on above: Performed By: #### 4 [id number] #### [facility] [address] [place] [address] Dr. Yariel Huynh NEUT # 7.0 103/ul Critically high 1.4-6.5 [facility] Comment on above: Performed By: #### 4 [id number] #### [facility] [address] [place] [address] Dr. Yariel Huynh Neutrophils/100 WBC (Bld) 69.6 % Normal 43.0-75.0 [facility] Comment on above: Performed By: #### 4 [id number] #### [facility] [address] [place] [address] Dr. Yariel Huynh Platelet mean volume (Bld) [Entitic vol] 12.9 fL Normal 9.5-13.5 [facility] Comment on above: Performed By: #### 4 [id number] #### [facility] [address] [place] [address] Dr. Yariel Huynh PLT 193 103/ul Normal 150-450 [facility] Comment on above: Performed By: #### 4 [id number] #### [facility] [address] [place] [address] Dr. Yariel Huynh RBC 3.78 106/ul Critically low 4.20-5.40 [facility] Comment on above: Performed By: #### 4 [id number] #### [facility] [address] [place] [address] Dr. Yariel Huynh WBC 10.1 103/ul Normal 4.0-11.0 [facility] Comment on above: Performed By: #### 4 [id number] #### [facility] [address] [place] [address] Dr. Yariel Huynh CREATININEon 12-08-2020 Creatinine [Mass/Vol] 0.80 mg/dL Normal 0.52-1.04 [facility] Comment on above: Performed By: #### L DH, URIC, AST, ALT, BUN, CREA #### [facility] [address] [place] [address] Clyde Madie EGFR-AF SPANISH >60 Normal >=60 [facility] Comment on above: Performed By: #### L DH, URIC, AST, ALT, BUN, CREA #### [facility] [address] [place] [address] Clydejustyn Delgadilloen EGFR-NON AF SPANISH >60 Normal >=60 [facility] Comment on above: Performed By: #### L DH, URIC, AST, ALT, BUN, CREA #### [facility] [address] [place] [address] Clyde Ramachandran DRUG SCREEN RAPID (URINE)on 12-08-2020 AMP Negative Normal NEGATIVE [facility] Comment on above: Performed By: #### 4 [id number] #### [facility] [address] [place] [address] Dr. Yariel Huynh BAR Negative Normal NEGATIVE [facility] Comment on above: Performed By: #### 4 [id number] #### [facility] [address] [place] [address] Dr. Yariel Huynh BUP Negative Normal NEGATIVE [facility] Comment on above: Performed By: #### 4 [id number] #### [facility] [address] [place] [address] Dr. Yariel Huynh BZO Negative Normal NEGATIVE [facility] Comment on above: Performed By: #### 4 [id number] #### [facility] [address] [place] [address] Dr. Yariel Huynh ROSA Negative Normal NEGATIVE [facility] Comment on above: Performed By: #### 4 [id number] #### [facility] [address] [place] [address] Dr. Yariel Huynh CUT-OFFS SEE BELOW Normal [facility] Comment on above: Result Comment: AMP (Amphetamine): 500ng/mL, BAR (Barbituates): 200 ng/mL, BZO (Benzodiazepines): 150 ng/mL, BUP (Buprenorphine): 10 ng/mL, ROSA (Cocaine): 150 ng/mL, mAMP (Methamphetamine): 500 ng/mL, MTD (Methadone): 200 ng/mL, OPI (Opiates): 100 ng/mL, OXY (Oxycodone): 100 ng/mL, PCP (Phencyclidine): 25 ng/mL, PPX (Propoxyphene): 300 ng/mL, THC (Cannabinoids): 50 ng/mL, TCA (Trycyclic Antidepressants): 300 ng/mL Performed By: #### 4 [id number] #### [facility] [address] [place] [address] Dr. Yariel Huynh DRUG CUT HEADER DRUG CLASS TEST SYST EM CUT-OFF CONCENTRATIONS ARE FOLLOWS: Normal [facility] Comment on above: Performed By: #### 4 [id number] #### [facility] [address] [place] [address] Dr. Yariel Huynh mAMP Negative Normal NEGATIVE [facility] Comment on above: Performed By: #### 4 [id number] #### [facility] [address] [place] [address] Dr. Yariel Huynh MTD Negative Normal NEGATIVE [facility] Comment on above: Performed By: #### 4 [id number] #### [facility] [address] [place] [address] Dr. Yariel Huynh OPI Negative Normal NEGATIVE [facility] Comment on above: Performed By: #### 4 [id number] #### [facility] [address] [place] [address] Dr. Yariel Huynh OXY Negative Normal NEGATIVE [facility] Comment on above: Performed By: #### 4 [id number] #### [facility] [address] [place] [address] Dr. Yariel Huynh PCP Negative Normal NEGATIVE [facility] Comment on above: Performed By: #### 4 [id number] #### [facility] [address] [place] [address] Dr. Yariel Huynh PPX Negative Normal NEGATIVE [facility] Comment on above: Performed By: #### 4 [id number] #### [facility] [address] [place] [address] Dr. Yariel Huynh TCA Negative Normal NEGATIVE [facility] Comment on above: Performed By: #### 4 [id number] #### [facility] [address] [place] [address] Dr. Yariel Huynh THC Negative Normal NEGATIVE [facility] Comment on above: Performed By: #### 4 [id number] #### [facility] [address] [place] [address] Dr. Yariel Huynh LDHon 12-08-2020 LDH 163 U/L Normal 122-222 [facility] Comment on above: Performed By: #### L DH, URIC, AST, ALT, BUN, CREA #### [facility] [address] [place] [address] Clyde Madie SGOTon 12-08-2020 AST [Catalytic activity/Vol] 15 U/L Normal 14-36 [facility] Comment on above: Performed By: #### L DH, URIC, AST, ALT, BUN, CREA #### [facility] [address] [place], [place] [id number] Clyde Madie SGPTon 12-08-2020 ALT [Catalytic activity/Vol] 12 U/L Normal 9-52 [facility] Comment on above: Performed By: #### L DH, URIC, AST, ALT, BUN, CREA #### [facility] [address] [place], [place] [id number] Clyde Madie TYPE AND SCREENon 12-08-2020 TYPE AND SCREEN Negative Normal [facility] Comment on above: Performed By: #### T NS #### [facility] [address] [place] [address] Clyde Madie URIC ACID SERUMon 12-08-2020 Urate [Mass/Vol] 5.0 mg/dL Normal 2.5-6.2 [facility] Comment on above: Performed By: #### L DH, URIC, AST, ALT, BUN, CREA #### [facility] [address] [place] [address] Clyde Ramachandran US PREG BIOPHY W NON [...] by: POLLO PABLO Date: 2020-12-08 08:45 Normal [facility] US PREG BIOPHY W NON [...] by: SCOTT CORTES Date: 2020-12-01 10:52 Normal [facility] Encounters Encounter Date Encounter Type [...] Screening for malign ant neoplasm of cervix [facility] Start: 04-19-2024 End: 04-19-2024 ambulatory 04/19/2024 10:00 AM EST Initial [facility] [address] [place] [address] [facility] Start: 04-19-2024 End: 04-19-2024 Professional / ancillary services management 04/19/2024 9:30 AM EST Ancillary Procedure [facility] [address] [place] [address] [facility] Start: 02-04-2024 Influenza vaccination Influenza Vacc ine (#1) [facility] Start: 2013 Screening for malign ant neoplasm of cervix Pap Smear [facility] Immunizations Immunization Date Immunization Notes Care Provider Fa julio cesarty 05-09-2019 influenza virus vacc ine, unspecified formulation Sammie Higginbotham DO Work Phone: [facility] Payers Date Payer Category Payer Private Health Insurance [facility] MEDICA[facility] [id number] 1992 Unknown [id number] 1992 Unknown [id number] .593 1992 Unknown [id number] .593 1992 Unknown [id number] .593 1992 Unknown [id number] [id number] .593 1992 Unknown [id number] [id number] .593 1992 Unknown [id number] [id number] .593 1992 Unknown [id number] [id number] .593 1992 Unknown [id number] .593 1959 Self-pay [id number] 1959 Unknown [id number] Social History Date Type Detail Facility Tobacco smoking stat [facility] Tobacco smoking consumption unknown [facility] Start: 1992 Sex assigned at Not on file [facility] Gender identity Not on file [facility] are Summary Purpose Family History No Family History Records Found Advance Directives No Advanced Directives Records Found Additional Source Comments INFORMATION SOURCE (unrecogn ized section and content) DATE CREATED AUTHOR 11/24/2021 [facility] Care Teams (unrecognized sec tion and content) Jewelry Facer Relationship Specialty Start Date End Date Sammie Higginbotham DO [address] [place] [address] [place] [address] PCP - [facility] 09/04/23 FOR RECORDS PERTAINING TO PATIENTS WHO [...] BE BASED ON THE PRIMARY CLINICAL RECORDS. [employer] [facility]. provides no warranty or guarantee of the accuracy or completeness of information in this document.
[2024-04-05 07:21] LABS: HCG Quantitative <1 mIU/mL
== END 2024-06-04 23:59 | disposition home or self-care (01) ==
LOC: LAB 06:38
PROVIDERS: Visit Provider Obstetrics & Gynecology
DX: O20.0 Threatened abortion (principal)
CPT/HCPCS: 36415; 84702

== ENCOUNTER 2024-07-01 12:31 | Outpatient (OUT) | payer OTHER, SELFPAY ==
--- OUTSIDE RECORDS SUMMARY | 2024-07-01 12:37 | XMS_ITS | CCD ---
Author Organization [facility]ini[facility] Care Team Providers Care Coffee Grinder Name Role Phone NEFTALY, DR COCHRAN Attending [...] Unavaila ble KARASIPavan, DR LOTT Consulting Unavailable TOPEKA, DR POLLO Gonzalez Consulting Unavailable NEFTALY, DR COCHRAN Consulting Unavailable NEFTALY, DR COCHRAN Procedure Practitioner Unavailab RICCARDO Crespo Consulting Unavailable BEATRIZ, DR LOTT Consulting Unavailable REQUEST, DR TALOBT LISTED Primary Care Unavaila ble KARBRIT, DR LOTT Admitting Unavailable KARASIK, DR LOTT Attending Unavailable REQUEST, DR TALBOT LISTED Primary Care Unavaila RICCARDO Alejo Admitting Unavailable RICCARDO GARNER Attending Unavailable NEFTALY, DR COCHRAN Consulting Unavailable SOPHIA, DR SCOTT Daniels Consulting Unavailable RICCARDO GARNER Consulting Unavailable REQUEST, DR TALBOT LISTED Primary Care Unavaila RICCARDO Alejo Consulting Unavailable RCICARDO GARNER Admitting Unavailable RICCARDO GARNER Attending Unavailable NEFTALY, DR COCHRAN Admitting Unavailable NEFTALY, DR COCHRAN Attending Unavailable REQUEST, DR TALBOT LISTED Primary Care Unavaila ble NeftalySammie bolanos DO Unavailable Medications Current Medications Medication Drug Class(es) Dates Sig (Normalized) Sig (Original) Progesterone 200 MG suppository (5 sources) Start: 05-10-2024 End: 06-09-2024 Progesterone 200 MG suppository Indications: History of miscarriage Insert 200 mg into the vagina at bedtime Insert suppository vaginally every night at bedtime until 12 weeks gestation 30 suppository 2 05/10/2024 06/09/2024 Active Start: 2024 End: 04-20-2024 Progesterone 200 MG supposit ory Indications: History of miscarriage Insert 200 mg [...] [ENC SCREENING HUMAN PAPILLOMAVIRUS] Onset: 09-20-2021 Episodic Menstrual disorders (1 source) Missed period; Translations: [Irregular menstruation, unspecified] 06-07-2024 Chronic Other and delivery including normal (3 sources) Single live ; Translations: [] Onset: 12-22-2020 06-07-2024 Episodic Other screening for suspected conditions (not mental disorders or infectious disease) (4 sources) Encounter for screening for malignant neoplasm of cervix; Translations: [ENC SCREENING MALIG NEOPLASM CERV] Onset: 09-16-2021 Episodic Residual codes; unclassified (1 source) Gestation period, 9 weeks; Translations: [9 weeks gestation of ] 06-07-2024 Episodic Unclassified (1 source) CONTACT W/AND (SUSP) [...] PRE-TERM LABR 3RD TRI] Onset: 11-27-2020 Episodic Residual codes; unclassified (1 source) 36 [...] Test Name Value Interpretation Reference Range Facility HCG ( test) Ql (U)o n 06-07-2024 Interpretation and review of laboratory results Abnormal [facility] re Preg Test, Ur Positive Negative [facility] OB TRANSVAGINALon 025 US OB TRANSVAGINAL TITLE OF EXAM: US OB TRANSVAGINAL REASON FOR EXAM: Dating TECHNIQUE: Grayscale, color, and M-mode Doppler evaluation of the pelvis. COMPARISON: None. PATIENT : 1990 PREGNANCIES: : 4, Para: 2, Aborta: 1 LMP: 04/01/2024 KLAUS by LMP: 01/06/2025 GA by LMP: 9 weeks, 4 days FINDINGS: AUA: 9 weeks, 1 day (+/-6 days) KLAUS by US: 01/09/2025 Uterus: There is a gestational sac and 0.4 cm yolk sac within the uterine body/fundus. Live embryo within the gestational sac without evident abnormality. Gestational sac 2.8 x 2.5 x 4.7 cm (8 weeks, 3 days). [place] rump length is 2.5 cm (9 weeks, 1 day). heart rate is 174 bpm. Small. Gestational anechoic, avascular region measuring 1.1 x 1.1 x 0.6 cm. Cervical length 3.4 cm. No appreciable funneling. Right ovary: 2.7 x 1.4 x 2.4 cm (volume 4.5 mL). Present color flow. No appreciable nodule/mass. Left ovary: 2.7 x 1.4 x 2.2 cm (volume 4.4 mL). Present color flow. No appreciable nodule/mass. IMPRESSION: 1. Single live intrauterine gestation sonographically measuring 9 weeks, 1 day. 2. Small suggested perigestational hemorrhage, 1.1 cm. DICTATED ON: 06/07/2024 9:24 AM This report has been electronically signed and approved by the interpreting radiologist. Normal Not Available Comment on above: Order Comment: US OB TRANSVAGINAL No LMP recorded. Urinalysis macro (dipstick) panel (U)on 06-07-2024 Bilirubin, UA Negative Negative - 4(70) +++ mg/dL [facility] Blood, UA Negative Negative - 50 Dario/mcL [facility] Clarity, UA Clear [facility] re Color, UA Yellow [facility] Glucose, UA Negative Negative - 1999(110) ++++ mg/dL [facility] Interpretation and review of laboratory results Normal [facility] re Ketones, UA Negative Negative - 160(16) ++++ mg/dL [facility] Leukocytes, UA Negative Negative - 500+++ Oksana/mcL [facility] Nitrite, UA Negative Negative - Positive [facility] pH, UA 5.5 5 - 9 [facility] e Protein, UA Negative Negative - 1999(20) ++++ mg/dL [facility] Spec Grav, UA 1.015 1 - 1.03 [facility] Urobilinogen, UA 0.2 0.2 - 12 mg/dL [facility] TBH PREG QUANT HCGon 024 HCG QUANTITATIVE <1 mIU/mL [facility] Comment on above: 5-50 0.2-1 WEEK 50-500 1-2 WEEKS 100-5,000 2-3 WEEKS 500-10,000 3-4 WEEKS 1,000-50,000 4-5 WEEKS 10,000-100,000 5-6 WEEKS 15,000-200,000 6-8 WEEKS 10,000-100,000 2-3 MONTHS [facility]H PREG QUANT HCGon 25-2 024 HCG QUANTITATIVE 15 mIU/mL [facility] Comment on above: 5-50 0.2-1 WEEK 50-500 1-2 WEEKS 100-5,000 2-3 WEEKS 500-10,000 3-4 WEEKS 1,000-50,000 4-5 WEEKS 10,000-100,000 5-6 WEEKS 15,000-200,000 6-8 WEEKS 10,000-100,000 2-3 MONTHS [facility] TBH PREG QUANT HCGon --2 024 HCG QUANTITATIVE 22 mIU/mL [facility] Comment on above: 5-50 0.2-1 WEEK 50-500 1-2 WEEKS 100-5,000 2-3 WEEKS 500-10,000 3-4 WEEKS 1,000-50,000 4-5 WEEKS 10,000-100,000 5-6 WEEKS 15,000-200,000 6-8 WEEKS 10,000-100,000 2-3 MONTHS [facility] TBH PREG QUANT HCGon 10-19-2 024 HCG QUANTITATIVE 32 mIU/mL [facility] Comment on above: 5-50 0.2-1 WEEK 50-500 1-2 WEEKS 100-5,000 2-3 WEEKS 500-10,000 3-4 WEEKS 1,000-50,000 4-5 WEEKS 10,000-100,000 5-6 WEEKS 15,000-200,000 6-8 WEEKS 10,000-100,000 2-3 MONTHS [facility] PAP ACOG PANEL 2: 21 to 29on 09-22-2021 . . Normal [facility] Comment on above: Performed By: #### 4 [id number] #### [facility] [address] [place] [address] Dr. Yariel Huynh Age Gdln ACOG Testing 21-29 Normal [facility] Comment on above: Performed By: #### 4 [id number] #### [facility] [address] [place] [address] Dr. Yariel Huynh DIAGNOSIS: Comment [facility] Comment on above: Result Comment: NEGA TIVE FOR INTRAEPITHELIAL LESION OR MALIGNANCY. Performed By: #### 4 [id number] #### [facility] [address] [place] [address] Dr. Yariel Huynh Methodology: Comment Normal [facility] Comment on above: Result Comment: This liquid based ThinPrep(R) pap test was screened with the use of an image guided system. Performed By: #### 4 [id number] #### [facility] [address] [place] [address] Dr. Yariel Huynh Note: Comment Normal [facility] Comment on above: Result Comment: The Pap smear is a screening test designed to aid in the detection of premalignant and malignant conditions of the uterine cervix. It is not a diagnostic procedure and should not be used as the sole means of detecting cervical cancer. Both false-positive and false-negative reports do occur. . Performed By: #### 4 [id number] #### [facility] [address] [place] [address] Dr. Yariel Huynh Performed by: Comment Normal [facility] Comment on above: Result Comment: Carole Lee, Forensic Dna Analyst (ASCP) Performed By: #### 4 [id number] #### [facility] [address] [place] [address] Dr. Yariel Huynh Reflex Criteria: Comment Normal [facility] Comment on above: Result Comment: The HPV DNA reflex criteria were not met with this specimen result therefore, no HPV testing was performed. . Performed By: #### 4 [id number] #### [facility] [address] [place] [address] Dr. Yariel Huynh Specimen adequacy: Comment Normal [facility] Comment on above: Result Comment: Sati sfactory for evaluation. Endocervical and/or squamous metaplastic cells (endocervical component) are present. Performed By: #### 4 [id number] #### [facility] [address] [place] [address] Dr. Yariel Huynh RUBELLA AB IGGon 12-10-2020 Rubella Antibodies, IgG 1.46 index Normal Immune >0.99 [facility] Comment on above: Result Comment: Non- immune <0.90 Equivocal 0.90 - 0.99 Immune >0.99 Performed By: #### R [id number] #### [facility] [address] [place] [address] Clyde Ramachandran CBC AUTO DIFFon 12-09-2020 BASO # 0.1 103/ul Normal 0.0-0.1 [facility] Comment on above: Performed By: #### 4 [id number] #### [facility] [address] [place] [address] Dr. Yariel Huynh Basophils/100 WBC (Bld) 0.3 % Normal 0.2-2.0 [facility] Comment on above: Performed By: #### 4 [id number] #### [facility] [address] [place] [address] Dr. Yariel Huynh EO # 0.0 103/ul Normal 0.0-0.7 [facility] Comment on above: Performed By: #### 4 [id number] #### [facility] [address] [place] [address] Dr. Yariel Huynh Eosinophils/100 WBC (Bld) 0.1 % Critically low 0.9-7.0 [facility] Comment on above: Performed By: #### 4 [id number] #### [facility] [address] [place] [address] Dr. Yariel Huynh Erythrocyte distribution width (RBC) [Ratio] 13.9 % Normal 11.0-15.0 [facility] Comment on above: Performed By: #### 4 [id number] #### [facility] [address] [place] [address] Dr. Yariel Huynh Hematocrit (Bld) [Volume fraction] 29.5 % Critically low 36.0-48.0 [facility] Comment on above: Performed By: #### 4 [id number] #### [facility] [address] [place] [address] Dr. Yariel Huynh Hemoglobin (Bld) [Mass/Vol] 9.3 g/dL Critically low 12.0-16.0 [facility] Comment on above: Performed By: #### 4 [id number] #### [facility] [address] [place] [address] Dr. Yariel Huynh IG # 0.08 10e3/ul Critically high 0.00-0.03 [facility] Comment on above: Performed By: #### 4 [id number] #### [facility] [address] [place] [address] Dr. Yariel Huynh IG % 0.5 % Normal 0.0-0.5 [facility] Comment on above: Performed By: #### 4 [id number] #### [facility] [address] [place] [address] Dr. Yariel Huynh LYMPH # 1.7 103/ul Normal 1.2-3.8 [facility] Comment on above: Performed By: #### 4 [id number] #### [facility] [address] [place] [address] Dr. Yariel Huynh Lymphocytes/100 WBC (Bld) 10.8 % Critically low 20.5-60.0 [facility] Comment on above: Performed By: #### 4 [id number] #### [facility] [address] [place] [address] Dr. Yariel Huynh MANUAL DIFF REQ NO Normal [facility] Comment on above: Performed By: #### 4 [id number] #### [facility] [address] [place] [address] Dr. Yariel Huynh MCH (RBC) [Entitic mass] 26.2 pg Critically low 26.7-34.0 [facility] Comment on above: Performed By: #### 4 [id number] #### [facility] [address] [place] [address] Dr. Yariel Huynh MCHC (RBC) [Mass/Vol] 31.5 g/dL Normal 29.9-35.2 [facility] Comment on above: Performed By: #### 4 [id number] #### [facility] [address] [place] [address] Dr. Yariel Huynh MCV (RBC) [Entitic vol] 83.1 fL Normal 81.0-99.0 [facility] Comment on above: Performed By: #### 4 [id number] #### [facility] [address] [place] [address] Dr. Yariel Huynh MONO # 0.8 103/ul Normal 0.3-0.8 [facility] Comment on above: Performed By: #### 4 [id number] #### [facility] [address] [place] [address] Dr. Yariel Huynh Monocytes/100 WBC (Bld) 5.2 % Normal 1.7-12.0 [facility] Comment on above: Performed By: #### 4 [id number] #### [facility] [address] [place] [address] Dr. Yariel Huynh NEUT # 12.8 103/ul Critically high 1.4-6.5 [facility] Comment on above: Performed By: #### 4 [id number] #### [facility] [address] [place] [address] Dr. Yariel Huynh Neutrophils/100 WBC (Bld) 83.1 % Critically high 43.0-75.0 [facility] Comment on above: Performed By: #### 4 [id number] #### [facility] [address] [place] [address] Dr. Yariel Huynh Platelet mean volume (Bld) [Entitic vol] 12.6 fL Normal 9.5-13.5 [facility] Comment on above: Performed By: #### 4 [id number] #### [facility] [address] [place] [address] Dr. Yariel Huynh PLT 203 103/ul Normal 150-450 [facility] Comment on above: Performed By: #### 4 [id number] #### [facility] [address] [place] [address] Dr. Yariel Huynh RBC 3.55 106/ul Critically low 4.20-5.40 [facility] Comment on above: Performed By: #### 4 [id number] #### [facility] [address] [place] [address] Dr. Yariel Huynh WBC 15.4 103/ul Critically high 4.0-11.0 [facility] Comment on above: Performed By: #### 4 [id number] #### [facility] [address] [place] [address] Dr. Yariel Huynh ASYMPTOMATIC COVID-19 ANTIGE Non 12-08-2020 EUA Statement SEE BELOW Normal [facility] Comment on above: Result Comment: This test [...] is revoked sooner. Performed By: #### 4 [id number] #### [facility] [address] [place] [address] Dr. Yariel Huynh SARS-CoV-2 (COVID-19) RNA ESTEBAN+probe Ql (Unsp spec) Negative Normal NEGATIVE [facility] Comment on above: Result Comment: Nega tive results are presumptive. They do not preclude infection and should not be used as the sole basis for treatment decisions. Additional confirmatory testing by a molecular method should be considered. Performed By: #### 4 [id number] #### [facility] [address] [place] [address] Dr. Yariel Alejandre 12-08-2020 Urea nitrogen [Mass/Vol] 15.0 mg/dL Normal 7.0-17.0 [facility] Comment on above: Performed By: #### 4 [id number] #### [facility] [address] [place] [address] Dr. Yariel Huynh CBC AUTO DIFFon 12-08-2020 BASO # 0.0 103/ul Normal 0.0-0.1 [facility] Comment on above: Performed By: #### 4 [id number] #### [facility] [address] [place] [address] Dr. Yariel Huynh Basophils/100 WBC (Bld) 0.3 % Normal 0.2-2.0 [facility] Comment on above: Performed By: #### 4 [id number] #### [facility] [address] [place] [address] Dr. Yariel Huynh EO # 0.0 103/ul Normal 0.0-0.7 [facility] Comment on above: Performed By: #### 4 [id number] #### [facility] [address] [place] [address] Dr. Yariel Huynh Eosinophils/100 WBC (Bld) 0.4 % Critically low 0.9-7.0 [facility] Comment on above: Performed By: #### 4 [id number] #### [facility] [address] [place] [address] Dr. Yariel Huynh Erythrocyte distribution width (RBC) [Ratio] 13.8 % Normal 11.0-15.0 [facility] Comment on above: Performed By: #### 4 [id number] #### [facility] [address] [place] [address] Dr. Yariel Huynh Hematocrit (Bld) [Volume fraction] 31.8 % Critically low 36.0-48.0 [facility] Comment on above: Performed By: #### 4 [id number] #### [facility] [address] [place] [address] Dr. Yariel Huynh Hemoglobin (Bld) [Mass/Vol] 10.1 g/dL Critically low 12.0-16.0 [facility] Comment on above: Performed By: #### 4 [id number] #### [facility] [address] [place] [address] Dr. Yariel Huynh IG # 0.07 10e3/ul Critically high 0.00-0.03 [facility] Comment on above: Performed By: #### 4 [id number] #### [facility] [address] [address] [address] Yariel Huynh IG % 0.7 % Critically high 0.0-0.5 [facility] Comment on above: Performed By: #### 4 [id number] #### [facility] [address] [place] [address] Dr. Yariel Huynh LYMPH # 2.3 103/ul Normal 1.2-3.8 [facility] Comment on above: Performed By: #### 4 [id number] #### [facility] [address] [place] [address] Dr. Yariel Huynh Lymphocytes/100 WBC (Bld) 22.7 % Normal 20.5-60.0 [facility] Comment on above: Performed By: #### 4 [id number] #### [facility] [address] [place] [address] Dr. Yariel Huynh MANUAL DIFF REQ NO Normal [facility] Comment on above: Performed By: #### 4 [id number] #### [facility] [address] [place] [address] Dr. Yariel Huynh MCH (RBC) [Entitic mass] 26.7 pg Normal 26.7-34.0 [facility] Comment on above: Performed By: #### 4 [id number] #### [facility] [address] [place] [address] Dr. Yariel Huynh MCHC (RBC) [Mass/Vol] 31.8 g/dL Normal 29.9-35.2 [facility] Comment on above: Performed By: #### 4 [id number] #### [facility] [address] [place] [address] Dr. Yariel Huynh MCV (RBC) [Entitic vol] 84.1 fL Normal 81.0-99.0 [facility] Comment on above: Performed By: #### 4 [id number] #### [facility] [address] [place] [address] Dr. Yariel Huynh MONO # 0.6 103/ul Normal 0.3-0.8 [facility] Comment on above: Performed By: #### 4 [id number] #### [facility] [address] [address] [address] Yariel Huynh Monocytes/100 WBC (Bld) 6.3 % Normal 1.7-12.0 [facility] Comment on above: Performed By: #### 4 [id number] #### [facility] [address] [place] [address] Dr. Yariel Huynh NEUT # 7.0 103/ul Critically high 1.4-6.5 [facility] Comment on above: Performed By: #### 4 [id number] #### [facility] [address] [place] [address] Dr. Yariel Huynh Neutrophils/100 WBC (Bld) 69.6 % Normal 43.0-75.0 [facility] Comment on above: Performed By: #### 4 [id number] #### [facility] [address] [place] [address] Dr. Yariel Huynh Platelet mean volume (Bld) [Entitic vol] 12.9 fL Normal 9.5-13.5 [facility] Comment on above: Performed By: #### 4 [id number] #### [facility] [address] [place] [address] Dr. Yariel Huynh PLT 193 103/ul Normal 150-450 [facility] Comment on above: Performed By: #### 4 [id number] #### [facility] [address] [place] [address] Dr. Yariel Huynh RBC 3.78 106/ul Critically low 4.20-5.40 [facility] Comment on above: Performed By: #### 4 [id number] #### [facility] [address] [place] [address] Dr. Yariel Huynh WBC 10.1 103/ul Normal 4.0-11.0 [facility] Comment on above: Performed By: #### 4 [id number] #### [facility] [address] [place] [address] Dr. Yariel Huynh CREATININEon 12-08-2020 Creatinine [Mass/Vol] 0.80 mg/dL Normal 0.52-1.04 [facility] Comment on above: Performed By: #### L DH, URIC, AST, ALT, BUN, CREA #### [facility] [address] [place] [address] Clyde Ramachandran EGFR-AF ZAMBIAN >60 Normal >=60 [facility] Comment on above: Performed By: #### L DH, URIC, AST, ALT, BUN, CREA #### [facility] [address] [place] [address] Clyde Ramachandran EGFR-NON AF ZAMBIAN >60 Normal >=60 [facility] Comment on above: Performed By: #### L DH, URIC, AST, ALT, BUN, CREA #### [facility] [address] [place] [address] Clyde Ramachandran DRUG SCREEN RAPID (URINE)on 12-08-2020 AMP Negative Normal NEGATIVE [facility] Comment on above: Performed By: #### 4 [id number] #### [facility] [address] [place] [address] Dr. Yariel Huynh BAR Negative Normal NEGATIVE [facility] Comment on above: Performed By: #### 4 [id number] #### [facility] [address] [place] [address] Dr. Yariel Huynh BUP Negative Normal NEGATIVE [facility] Comment on above: Performed By: #### 4 [id number] #### [facility] [address] [place] [address] Dr. Yariel Huynh BZO Negative Normal NEGATIVE [facility] Comment on above: Performed By: #### 4 [id number] #### [facility] [address] [place] [address] Dr. Yariel Huynh ROSA Negative Normal NEGATIVE [facility] Comment on above: Performed By: #### 4 [id number] #### [facility] [address] [place] [address] Dr. Yariel Huynh CUT-OFFS SEE BELOW Normal [facility] Comment on above: Result Comment: AMP (Amphetamine): 500ng/mL, BAR (Barbituates): 200 ng/mL, BZO (Benzodiazepines): 150 ng/mL, BUP (Buprenorphine): 10 ng/mL, ROSA (Cocaine): 150 ng/mL, mAMP (Methamphetamine): 500 ng/mL, MTD (Methadone): 200 ng/mL, OPI (Opiates): 100 ng/mL, OXY (Oxycodone): 100 ng/mL, PCP (Phencyclidine): 25 ng/mL, PPX (Propoxyphene): 300 ng/mL, THC (Cannabinoids): 50 ng/mL, TCA (Trycyclic Antidepressants): 300 ng/mL Performed By: #### 4 [id number] #### [facility] [address] [place] [address] Dr. Yariel Huynh DRUG CUT HEADER DRUG CLASS TEST SYSTEM CUT-OFF CONCENTRATIONS ARE FOLLOWS: Normal [facility] Comment on above: Performed By: #### 4 [id number] #### [facility] [address] [place] [address] Dr. Yariel Huynh mAMP Negative Normal NEGATIVE [facility] Comment on above: Performed By: #### 4 [id number] #### [facility] [address] [place] [address] Dr. Yariel Huynh MTD Negative Normal NEGATIVE [facility] Comment on above: Performed By: #### 4 [id number] #### [facility] [address] [place] [address] Dr. Yariel Huynh OPI Negative Normal NEGATIVE [facility] Comment on above: Performed By: #### 4 [id number] #### [facility] [address] [place] [address] Dr. Yariel Huynh OXY Negative Normal NEGATIVE [facility] Comment on above: Performed By: #### 4 [id number] #### [facility] [address] [place] [address] Dr. Yariel Huynh PCP Negative Normal NEGATIVE [facility] Comment on above: Performed By: #### 4 [id number] #### [facility] [address] [place] [address] Dr. Yariel Huynh PPX Negative Normal NEGATIVE [facility] Comment on above: Performed By: #### 4 [id number] #### [facility] [address] [place] [address] Dr. Yariel Huynh TCA Negative Normal NEGATIVE [facility] Comment on above: Performed By: #### 4 [id number] #### [facility] [address] [place] [address] Dr. Yariel Huynh THC Negative Normal NEGATIVE [facility] Comment on above: Performed By: #### 4 [id number] #### [facility] [address] [place] [address] Dr. Yariel Huynh LDHon 12-08-2020 LDH 163 U/L Normal 122-222 [facility] Comment on above: Performed By: #### L DH, URIC, AST, ALT, BUN, CREA #### [facility] Laboratory [address] [place] [address] Clydejustyn Ramachandran SGOTon 12-08-2020 AST [Catalytic activity/Vol] 15 U/L Normal 14-36 [facility] Comment on above: Performed By: #### L DH, URIC, AST, ALT, BUN, CREA #### [facility] [address] [place] [address] [facility]de [facility]2020 ALT [Catalytic activity/Vol] 12 U/L Normal 9-52 [facility] Comment on above: Performed By: #### L DH, URIC, AST, ALT, BUN, CREA #### [facility] [address] [place] [address] Clyde Madie TYPE AND SCREENon 12-08-2020 TYPE AND SCREEN Negative Normal [facility] Comment on above: Performed By: #### T NS #### [facility] [address] [place] [address] Clyde Ramachandran URIC ACID SERUMon 12-08-2020 Urate [Mass/Vol] 5.0 mg/dL Normal 2.5-6.2 [facility] Comment on above: Performed By: #### L DH, URIC, AST, ALT, BUN, CREA #### [facility] [address] [place], [place] [id number] Clyde Madie US PREG BIOPHY W NON STRESSo n [...] by: POLLO PABLO Date: 2020-12-08 08:45 Normal [facility] US PREG BIOPHY W NON STRESSo [...] by: SCOTT CORTES Date: 2020-12-01 10:52 Normal [facility] Vital Signs Date Time Vital Sign Value Performing Clinician Roxann torres 06-07-2024 09:47-0500 Body weight 66.22 kg [facility] 06-07-2024 09:47-0500 Diastolic blood pressure 72 mm[Hg] [facility] 06-07-2024 09:47-0500 Systolic blood pressure 122 mm[Hg] [facility] Encounters Encounter Date Encounter Type Care Provider Facility Start: 06-07-2024 End: 06-07-2024 ambulatory [facility] Neftaly Nurse [facility] Comment on above: GA: 9w4d Start: 04-05-2024 End: 04-05-2024 Clinisync Result Encounter Sammie Higginbotham DO Work Phone: [facility] Unsolicited Start: 04-05-2024 End: 04-05-2024 Clinisync Result Encounter Sammie Neftaly DO Work [...] HENDERSON Facility:[facility] Start: 12-01-2020 End: 12-01-[address] NONE LISTED REQUEST Facility:[facility] Start: 11-27-2020 End: 11-27-[address] NONE LISTED REQUEST Facility: Procedures Date Procedure Procedure Detail Performing Clinician Start: 06-07-2024 Urnls dip stick/tabl et rgnt non-auto w/o micrscp Sammie Higginbotham DO Work Phone: Start: 04-05-2024 [facility] PREG QUANT HCG Core y Neftaly DO Work Phone: Start: 03-29-2024 [facility] PREG QUANT HCG Core [...] Screening for malign ant neoplasm of cervix [facility] Start: 07-08-2024 End: 07-08-2024 Patient encounter procedure 07/08/2024 9:40 AM EST Routine [facility] [address] [place] [address] Sammie Higginbotham, DO [address] [place] [address] [facility] Start: 06-07-2024 End: 06-07-2025 ABO/Rh ABO/Rh Lab Routine Missed menses , unspecified gestational age Expected: 06/07/2024 (Approximate), Expires: 06/07/2025 [facility] Comment on above: Expected: 06/07/2024 (Approximate), Expires: 06/07/2025 Start: 06-07-2024 End: 06-07-2025 Blood type and Indirect antibody screen panel - Blood Type and screen Lab Routine Missed menses , unspecified gestational age Expected: 06/07/2024 (Approximate), Expires: 06/07/2025 [facility] Work Phone: Comment on above: Expected: 06/07/2024 (Approximate), Expires: 06/07/2025 Start: 06-07-2024 End: 06-07-2025 Drugs of abuse panel - Urine by Screen method Rapid drug screen, urine Lab Routine , unspecified gestational age Encounter for supervision of normal first in first trimester Expected: 06/07/2024 (Approximate), Expires: 06/07/2025 [facility] Comment on above: Expected: 06/07/2024 (Approximate), Expires: 06/07/2025 Start: 04-19-2024 End: 04-19-2024 ambulatory 04/19/2024 10:00 AM EST Initial [facility] [address] [place] [address] [place] [address] [facility] Start: 04-19-2024 End: 04-19-2024 Professional / ancillary services management 04/19/2024 9:30 AM EST Ancillary Procedure [facility] [address] [place] [address] [place] [address] [facility] Start: 02-04-2024 Influenza vaccination Influenza Vacc ine (#1) [facility] Start: 2013 Screening for malign ant neoplasm of cervix Pap Smear [facility] Bacteria identified in Urine by Culture Urine culture Microbiology Routine Missed menses Ordered: 06/07/2024 [facility] Comment on above: Ordered: 06/07/2024 CBC W Auto Different ial panel - Blood CBC and differential Lab Routine Missed menses , unspecified gestational age Ordered: 06/07/2024 [facility] Comment on above: Ordered: 06/07/2024 Hemoglobin A1c/Hemoglobin.total in Blood Hemoglobin A1c Lab Routine Missed menses , unspecified gestational age Ordered: 06/07/2024 [facility] Comment on above: Ordered: 06/07/2024 Hepatitis B virus surface Ag [Presence] in Serum or Plasma by Immunoassay Hepatitis B surface antigen Lab Routine Missed menses , unspecified gestational age Ordered: 06/07/2024 [facility] Comment on above: Ordered: 06/07/2024 Hepatitis C virus Ab [Presence] in Serum or Plasma by Immunoassay Hepatitis C antibody Lab Routine Missed menses , unspecified gestational age Ordered: 06/07/2024 [facility] Comment on above: Ordered: 06/07/2024 HIV-1/HIV-2 antigen/antibody combination immunoassay HIV-1 and HIV-2 antibodies Lab Routine Missed menses , unspecified gestational age Ordered: 06/07/2024 [facility] Comment on above: Ordered: 06/07/2024 Reagin Ab [Presence] in Serum by RPR RPR Lab Routine Missed menses , unspecified gestational age Ordered: 06/07/2024 [facility] Comment on above: Ordered: 06/07/2024 Rubella antibody, IgG Rubella an tibody, IgG Lab Routine Missed menses , unspecified gestational age Ordered: 06/07/2024 [facility] Comment on above: Ordered: 06/07/2024 Immunizations Immunization Date Immunization Notes Care Provider Khai lopez 05-09-2019 influenza virus vacc ine, unspecified formulation Sammie Higginbotham DO Work Phone: [facility] Payers Date Payer Category Payer Private Health Insurance [facility] [employer] [id number] 2017 Medicaid [id number] 1992 Unknown [id number]. 593 1992 Unknown [id number]. 593 1992 Unknown [id number] [id number]. 593 1992 Unknown [id number] 2.16.840.1.531995.3.579.2. 593 1992 Unknown [id number] [id number]. 593 1992 Unknown [id number] 2.16.840.1.569787.3.579.2. 593 1992 Unknown [id number] 2.16.840.1.195682.3.579.2. 593 1992 Unknown [id number] 2.16.840.1.654880.3.579.2. 593 1992 Unknown [id number] 2.16.840.1.448075.3.579.2. 593 1992 Unknown [id number] [id number]. 1259 1992 Unknown [id number] [id number]. 1259 1959 Self-pay [id number] 1959 Unknown [id number] Social History Date Type Detail Facility Tobacco smoking stat [facility] Tobacco smoking consumption unknown [facility] Start: 1992 Sex assigned at Not on file [facility] Gender identity Not on file [facility] Start: 04-15-2024 [facility] History of Present illness Narrative 06-07-2024 Isabel Keating MA - 06/07/2024 9:30 AM EST Note Date & Type Note Facility 06-07-2024 History of Presen t illness Narrative Reason for Appointment: Patient ID: Bre Martel is a 34 y.o. female who presents for Amenorrhea Patient presents today for a Nurse OB Intake appointment. Patient is 9w4d with a Estimated Date of Delivery: 01/06/25 OB History Para Term AB Living 5 2 2 2 2 SAB IAB Ectopic Multiple Live Births 2 2 # Outcome Date GA Lbr Jacinto/2nd Weight Sex Type Anes PTL Lv 5 Current 4 SAB 02/2024 U Complete 3 12/08/20 M Vag-Spont Y ADELAIDE 2 SAB 2019 U Complete 1 12/19/16 4 lb 4 oz F Vag-Spont Y ADELAIDE Current Medications: has a current medication list which includes the following prescription(s): progesterone. Medical History: Active Ambulatory Problems Diagnosis Date Noted No Active Ambulatory Problems Resolved Ambulatory Problems Diagnosis Date Noted No Resolved Ambulatory Problems No Additional Past Medical History No family history on file. Social History Tobacco Use Smoking status: Not on file Smokeless tobacco: Not on file Substance Use Topics Alcohol use: Not on file Drug use: Not on file No past surgical history on file. No Known Allergies Vitals: There is no height or weight on file to calculate BMI. BP: 122/72 Patient's last menstrual period was 04/01/2024. Assessment/Plan Diagnoses and all orders for this visit: Missed menses - Type and screen; Future - ABO/Rh; Future - CBC and differential - Hemoglobin A1c - RPR - Rubella antibody, IgG - Hepatitis B surface antigen - Hepatitis C antibody - HIV-1 and HIV-2 antibodies - Urine culture - POCT , urine manually resulted - POCT urinalysis dipstick manually resulted 9 weeks gestation of , unspecified gestational age - Type and screen; Future - ABO/Rh; Future - CBC and differential - Hemoglobin A1c - RPR - Rubella antibody, IgG - Hepatitis B surface antigen - Hepatitis C antibody - HIV-1 and HIV-2 antibodies - Rapid drug screen, urine; Future Encounter for supervision of normal first in first trimester - Rapid drug screen, urine; Future Nurse Note: OB Intake: Patient presents today for first OB visit. Patients history has been reviewed in great detail including any potential risks. Patient signed consent forms and patient desires testing in both trimesters. Patient currently has no complaints and has been advised to drink 6-8 glasses of water a day, eat no raw or undercooked meat, and stay away from [facility]. Patient has also been advised to not change litter boxes and eat 6 small meals a day. Patient has been consulted regarding the do's and don'ts of . Patient was given labs and all questions and concerns were answered. Follow Up: Patient is to return in 4 weeks for routine OB appointment. Follow Up: Patient is to have labs drawn at directed and return to office for initial OB appointment with provider. Patient may call office as needed with any concerns or questions. Nurse Visit Completed by: Isabel Keating MA documented in this encounter [facility] Evaluation note Note Date & Type Note Facility Evaluation note Diagnosis Missed menses 9 weeks gestation of , unspecified gestational age Encounter for supervision of normal first in first trimester documented in this encounter [facility] Summary Purpose Family History No Family History Records FoundNo Family History Records Found Advance Directives No Advanced Directives Records FoundNo Advanced Directives Records Found Additional Source Comments INFORMATION SOURCE (unrecogn ized section and content) DATE CREATED AUTHOR 11/24/2021 [facility] DATE CREATED AUTHOR 'S ORGANIZ ATION 06/14/2024 [facility] Care Teams (unrecognized sec tion and content) Coffee Grinder Relationship Specialty Start Date End Date Sammie Higginbotham, [address] [place] [address] PCP - [facility] 09/04/23 Coffee Grinder Relationship Specialty Start Date End Date Sammei Higginbotham DO [address] [place] [address] PCP - [facility] 09/04/23 Coffee Grinder Relationship Specialty Start Date End Date Sammie Higginbotham, [address] [place] [address] PCP - [facility] 09/04/23 Reason for Visit (unrecogniz ed section and content) Reason Comments Amenorrhea FOR RECORDS PERTAINING TO PATIENTS WHO ARE [...] BE BASED ON THE PRIMARY CLINICAL RECORDS. [facility] [employer] - Financial Reconciliation [facility]. provides no warranty or guarantee of the accuracy or completeness of information in this document.
[2024-07-01 12:51] LABS: Basophils Percent Auto 0.3 % (0.2-2.0); Eosinophils Percent Auto 0.2 % (0.9-7.0); Hemoglobin 12.5 g/dL (12.0-16.0); Immature Granulocytes Abs Auto 0.05 10^3/uL (0.00-0.03); Immature Granulocytes Pct Auto 0.4 % (0.0-0.5); Lymphocytes Absolute Auto 2.1 10^3/uL (1.2-3.8); Mean Corpuscular HGB Conc 34.7 g/dL (29.9-35.2); Mean Corpuscular Hemoglobin 30.1 pg (26.7-34.0); Mean Corpuscular Volume 86.7 fL (81.0-99.0); Mean Platelet Volume 10.7 fL (9.5-13.5); Monocytes Absolute Auto 0.9 10^3/uL (0.3-0.8); Monocytes Percent Auto 6.6 % (1.7-12.0); Neutrophils Absolute Auto 9.9 10^3/uL (1.4-6.5); Neutrophils Percent Auto 76.5 % (43.0-75.0); Platelet Count 276 10^3/uL (150-450); Red Blood Count 4.15 10^6/uL (4.20-5.40); Red Cell Distribution Width 13.5 % (11.0-15.0); White Blood Count 12.9 10^3/uL (4.0-11.0)
[2024-07-01 13:22] LABS: Estimated Average Glucose 108 mg/dL; Glycohemoglobin A1C 5.4 % (4.5-6.2)
[2024-07-01 14:13] LABS: Amphetamine Screen Urine NEGATIVE (NEGATIVE); Barbiturates Screen Urine NEGATIVE (NEGATIVE); Benzodiazepines Screen Urine NEGATIVE (NEGATIVE); Buprenorphine Screen Urine NEGATIVE (NEGATIVE); Cannabinoid Screen Urine NEGATIVE (NEGATIVE); Cocaine Screen Urine NEGATIVE (NEGATIVE); Methadone Screen Urine NEGATIVE (NEGATIVE); Methamphetamines Screen Urine NEGATIVE (NEGATIVE); Opiate Screen Urine NEGATIVE (NEGATIVE); Oxycodone Screen Urine NEGATIVE (NEGATIVE); Phencyclidine Screen Urine NEGATIVE (NEGATIVE); Tricyclic Antidepressant Urine NEGATIVE (NEGATIVE)
[2024-07-02 06:08] LABS: HBsAg Screen Negative (Negative); HCV Ab Non Reactive (Non Reactive); HIV Ab/p24 Ag Screen Non Reactive (Non Reactive); Rubella Antibodies, IgG 1.43 index (Immune >0.99)
[2024-07-02 12:08] LABS: Rapid Plasma Reagin, Quant Non Reactive titer (NonRea<1:1)
== END 2024-07-01 12:32 | disposition home or self-care (01) ==
LOC: LAB 12:32
PROVIDERS: Visit Provider Obstetrics & Gynecology
DX: Z34.01 Encounter for supervision of normal first pregnancy, first trimester (principal); N92.6 Irregular menstruation, unspecified
CPT/HCPCS: 36415; 80307; 83036; 85025; 86592; 86762; 86803; 86850; 86900; 86901; 87086; 87340; 87389

== ENCOUNTER 2024-07-27 09:46 | Outpatient (OUT) | payer OTHER, SELFPAY ==
--- OUTSIDE RECORDS SUMMARY | 2024-07-27 09:49 | XMS_ITS | CCD ---
Author Organization [facility] CliniSyms Care Team Providers Care Track Layer Head Name Role Phone NEFTALY, DR COCHRAN Attending [...] ble KARASIPavan, DR LOTT Consulting Unavailable WEST RICHLAND, DR POLLO Gonzalez Consulting Unavailable NEFTALY, DR COCHRAN Consulting Unavailable NEFTALY, DR COCHRAN Procedure Practitioner Unavailab RICCARDO Crespo Consulting Unavailable KARBRIT, DR LOTT Consulting Unavailable REQUEST, DR TALBOT LISTED Primary Care Unavaila ble KARASIPavan, DR LOTT Admitting Unavailable KARASIK, DR LOTT Attending Unavailable REQUEST, NONE LISTED Primary Care Unavaila RICCARDO Alejo Admitting [...] Care Unavaila ble NeftalySammie bolanos DO Unavailable SAMMIE HIGGINBOTHAM Attending Unavailable Medications Current Medications Medication Drug Class(es) Dates Sig (Normalized) Sig (Original) Progesterone (2 sources) Progesterone Start: 06-13-2024 Progesterone Micronized (progesterone, bulk,) powder 06/13/2024 Active Progesterone 200 MG suppository (7 sources) Start: 07-08-2024 End: 08-07-2024 Progesterone 200 MG suppository Indications: History of miscarriage Insert 200 mg into the vagina at bedtime Insert suppository vaginally every night at bedtime until 12 weeks gestation 30 suppository 07/08/2024 08/07/2024 Active Start: 05-10-2024 End: 06-09-2024 Progesterone 200 MG supposit ory Indications: History [...] 06-07-2024 Chronic Other and delivery including normal (5 sources) Single live ; Translations: [] Onset: 12-22-2020 06-07-2024 Episodic Other screening for suspected conditions (not mental disorders or infectious disease) (6 sources) Encounter for screening for malignant neoplasm of cervix; Translations: [Patient encounter status] Onset: 09-16-2021 Episodic Residual codes; unclassified (1 source) Gestation period, 9 weeks; Translations: [9 weeks gestation of ] 06-07-2024 Episodic Residual codes; unclassified (2 sources) Gestation period, 14 weeks; Translations: [14 weeks gestation of ] 07-08-2024 Episodic Residual codes; unclassified (2 sources) H/O: miscarriage; Translations: [Personal history of other complications of , childbirth and the puerperium] 07-08-2024 Episodic Unclassified (1 source) CONTACT W/AND (SUSP) [...] Test Name Value Interpretation Reference Range Facility ALL CBC WITH AUTO DIFFon BASOPHILS ABSOLUTE AUTO 0 [facility] Basophils/100 WBC (Bld) 0.3 % 0.2 - 2.0 % [facility] Eosinophils/100 WBC (Bld) 0.2 % Low 0.9 - 7.0 % [facility] Erythrocyte distribution width (RBC) [Ratio] 13.5 % 11.0 - 15.0 % [facility] Hematocrit (Bld) [Volume fraction] 36 % 36.0 - 48.0 % [facility] Hemoglobin (Bld) [Mass/Vol] 12.5 g/dL 12.0 - 16.0 g/dL [facility] IMMATURE GRANULOCYTES ABS AUTO 0.05 High [facility] Immature granulocytes/100 WBC (Bld) 0.4 % 0.0 - 0.5 % [facility] Interpretation and review of laboratory results Abnormal [facility] re LYMPHOCYTES ABSOLUTE AUTO 2.1 [facility] Lymphocytes/100 WBC (Bld) 16 % Low 20.5 - 60.0 % [facility] MCH (RBC) [Entitic mass] 30.1 pg 26.7 - 34.0 pg [facility] MCHC (RBC) [Mass/Vol] 34.7 g/dL 29.9 - 35.2 g/dL [facility] MCV (RBC) [Entitic vol] 86.7 fL 81.0 - 99.0 fL [facility] Healthcare MONOCYTES ABSOLUTE AUTO 0.9 High [facility] Monocytes/100 WBC (Bld) 6.6 % 1.7 - 12.0 % [facility] NEUTROPHILS ABSOLUTE AUTO 9.9 High [facility] Neutrophils/100 WBC (Bld) 76.5 % High 43.0 - 75.0 % [facility] Platelet mean volume (Bld) [Entitic vol] 10.7 fL 9.5 - 13.5 fL [facility] TBH EO # 0 [facility] TBH PLT 276 [facility] TB[facility] RBC 4.15 Low [facility] TB[facility] WBC 12.9 High [facility] HCG ( test) Ql (U)o n 06-07-2024 Interpretation and review of laboratory results Abnormal [facility] Preg Test, Ur Positive Negative [facility] Health care [facility] US OB TRANSVAGINALon 025 US OB TRANSVAGINAL TITLE [...] x 4.7 cm (8 weeks, 3 days). Collbran rump length is 2.5 cm (9 weeks, [...] UA Negative Negative - 4(70) +++ mg/dL [facility] Blood, UA Negative Negative - 50 Dario/mcL [facility] Clarity, UA Clear [facility] re Color, UA Yellow [facility] Gl[facility], UA Negative Negative - 2000(110) ++++ mg/dL [facility] Interpretation and review of laboratory results Normal [facility] Ketones, UA Negative Negative - 160(16) ++++ mg/dL [facility] Leukocytes, UA Negative Negative - 500+++ Oksana/mcL [facility] Nitrite, UA Negative Negative - Positive [facility] pH, UA 5.5 5 - 9 [facility] e Protein, UA Negative Negative - 1999(20) ++++ mg/dL [facility] Spec Grav, UA 1.015 1 - 1.[address] [facility] Urobilinogen, UA 0.2 0.2 - 12 mg/dL [facility] TB PREG QUANT HCGon 024 HCG QUANTITATIVE <1 mIU/mL [facility] Hea ltare Comment on above: 5-50 0.2-1 WEEK 50-500 1-2 WEEKS 100-5,000 2-3 WEEKS 500-10,000 3-4 WEEKS 1,000-50,000 4-5 WEEKS 10,000-100,000 5-6 WEEKS 15,000-200,000 6-8 WEEKS 10,000-100,000 2-3 [facility] [place] e TB PREG QUANT HCGon 03-29- 024 HCG QUANTITATIVE 15 mIU/mL [facility] Hea ltare Comment on above: 5-50 0.2-1 WEEK 50-500 1-2 WEEKS 100-5,000 2-3 WEEKS 500-10,000 3-4 WEEKS 1,000-50,000 4-5 WEEKS 10,000-100,000 5-6 WEEKS 15,000-200,000 6-8 WEEKS 10,000-100,000 2-3 [facility] [place] e TBH PREG QUANT HCGon 03-25- 024 HCG QUANTITATIVE 22 mIU/mL [facility] Hea lthcare Comment on above: 5-50 0.2-1 WEEK 50-500 1-2 WEEKS 100-5,000 2-3 WEEKS 500-10,000 3-4 WEEKS 1,000-50,000 4-5 WEEKS 10,000-100,000 5-6 WEEKS 15,000-200,000 6-8 WEEKS 10,000-100,000 2-3 [facility] [place] e TBH PREG QUANT HCGon -19-2 024 HCG QUANTITATIVE 32 mIU/mL [facility] Hea lthcare Comment on above: 5-50 0.2-1 WEEK 50-500 1-2 WEEKS 100-5,000 2-3 WEEKS 500-10,000 3-4 WEEKS 1,000-50,000 4-5 WEEKS 10,000-100,000 5-6 WEEKS 15,000-200,000 6-8 WEEKS 10,000-100,000 2-3 MONTHS [facility] PAP ACOG PANEL 2: 21 to 29on 09-22-[address] [facility] Comment on above: Performed By: #### [id number] #### [facility] [address] [place] [address] Dr. Yariel Huynh Age Gdln ACOG Testing - [facility] Comment on above: Performed By: #### [id number] #### [facility] [address] [place] [address] Dr. Yariel Huynh DIAGNOSIS: Comment [facility] Comment on above: Result Comment: NEGA TIVE FOR INTRAEPITHELIAL LESION OR MALIGNANCY. Performed By: #### 4 [id number] #### [facility] [address] [place] [address] Dr. Yariel Huynh Methodology: Comment [facility] Comment on above: Result Comment: This liquid based ThinPrep(R) pap test was screened with the use of an image guided system. Performed By: #### 4 [id number] #### [facility] [address] [place] [address] Dr. Yariel Huynh Note: Comment [facility] Comment on above: Result Comment: The Pap smear is a screening test designed to aid in the detection of premalignant and malignant conditions of the uterine cervix. It is not a diagnostic procedure and should not be used as the sole means of detecting cervical cancer. Both false-positive and false-negative reports do occur. . Performed By: #### 4 [id number] #### [facility] [address] [place] [address] Dr. Yariel Huynh Performed by: Comment [facility] Comment on above: Result Comment: Carole Lee Staff Scientist (ASCP) Performed By: #### 4 [id number] #### [facility] [address] [place] [address] Dr. Yariel Huynh Reflex Criteria: Comment Normal [facility] Comment on above: Result Comment: The HPV DNA reflex criteria were not met with this specimen result therefore, no HPV testing was performed. . Performed By: #### 4 [id number] #### [facility] [address] [place] [address] Dr. Yariel Huynh Specimen adequacy: Comment Normal [facility] Comment on above: Result Comment: Sati sfactory for evaluation. Endocervical and/or squamous metaplastic cells (endocervical component) are present. Performed By: #### 4 [id number] #### [facility] [address] [place] [address] Dr. Yariel Huynh RUBELLA AB IGGon 12-10-2020 Rubella Antibodies, IgG 1.46 index Normal Immune >0.99 [facility] Comment on above: Result Comment: Non- immune <0.90 Equivocal 0.90 - 0.99 Immune >0.99 Performed By: #### R [id number] #### [facility] [address] [place] [address] Clyde Delgadilloen CBC AUTO DIFFon 12-09-2020 BASO # 0.1 103/ul Normal 0.0-0.1 [facility] Comment on above: Performed By: #### 4 [id number] #### [facility] [address] [place] [address] Dr. Yariel Huynh Basophils/100 WBC (Bld) 0.3 % Normal 0.2-2.0 [facility] Comment on above: Performed By: #### 4 [id number] #### [facility] [address] [place] [address] Dr. Yariel Huynh EO # 0.0 103/ul Normal 0.0-0.7 [facility] Comment on above: Performed By: #### 4 [id number] #### [facility] [address] [place] [address] Dr. Yariel Huynh Eosinophils/100 WBC (Bld) 0.1 % Critically low 0.9-7.0 [facility] Comment on above: Performed By: #### 4 [id number] #### [facility] [address] [place] [address] Dr. Yariel Huynh Erythrocyte distribution width (RBC) [Ratio] 13.9 % Normal 11.0-15.0 [facility] Comment on above: Performed By: #### 4 [id number] #### [facility] [address] [place] [address] Dr. Yariel Huynh Hematocrit (Bld) [Volume fraction] 29.5 % Critically low 36.0-48.0 [facility] Comment on above: Performed By: #### 4 [id number] #### [facility] [address] [address] [address] Yariel Huynh Hemoglobin (Bld) [Mass/Vol] 9.3 g/dL Critically low 12.0-16.0 [facility] Comment on above: Performed By: #### 4 [id number] #### [facility] [address] [place] [address] Dr. Yariel Huynh IG # 0.08 10e3/ul Critically high 0.00-0.03 [facility] Comment on above: Performed By: #### 4 [id number] #### [facility] [address] [place] [address] Dr. Yariel Huynh IG % 0.5 % Normal 0.0-0.5 [facility] Comment on above: Performed By: #### 4 [id number] #### [facility] [address] [place] [address] Dr. Yariel Huynh LYMPH # 1.7 103/ul Normal 1.2-3.8 [facility] Comment on above: Performed By: #### 4 [id number] #### [facility] [address] [place] [address] Dr. Yariel Huynh Lymphocytes/100 WBC (Bld) 10.8 % Critically low 20.5-60.0 [facility] Comment on above: Performed By: #### 4 [id number] #### [facility] [address] [place] [address] Dr. Yariel Huynh MANUAL DIFF REQ NO Normal [facility] Comment on above: Performed By: #### 4 [id number] #### [facility] [address] [place] [address] Dr. Yariel Huynh MCH (RBC) [Entitic mass] 26.2 pg Critically low 26.7-34.0 [facility] Comment on above: Performed By: #### 4 [id number] #### [facility] [address] [place] [address] Dr. Yariel Huynh MCHC (RBC) [Mass/Vol] 31.5 g/dL Normal 29.9-35.2 [facility] Comment on above: Performed By: #### 4 [id number] #### [facility] [address] [place] [address] Dr. Yariel Huynh MCV (RBC) [Entitic vol] 83.1 fL Normal 81.0-99.0 [facility] Comment on above: Performed By: #### 4 [id number] #### [facility] [address] [place] [address] Dr. Yariel Huynh MONO # 0.8 103/ul Normal 0.3-0.8 [facility] Comment on above: Performed By: #### 4 [id number] #### [facility] [address] [place] [address] Dr. Yariel Huynh Monocytes/100 WBC (Bld) 5.2 % Normal 1.7-12.0 [facility] Comment on above: Performed By: #### 4 [id number] #### [facility] [address] [place] [address] Dr. Yariel Huynh NEUT # 12.8 103/ul Critically high 1.4-6.5 [facility] Comment on above: Performed By: #### 4 [id number] #### [facility] [address] [place] [address] Dr. Yariel Huynh Neutrophils/100 WBC (Bld) 83.1 % Critically high 43.0-75.0 [facility] Comment on above: Performed By: #### 4 [id number] #### [facility] [address] [place] [address] Dr. Yariel Huynh Platelet mean volume (Bld) [Entitic vol] 12.6 fL Normal 9.5-13.5 [facility] Comment on above: Performed By: #### 4 [id number] #### [facility] [address] [address] [address] Yariel Huynh PLT 203 103/ul Normal 150-450 [facility] Comment on above: Performed By: #### 4 [id number] #### [facility] [address] [address] [address] Yariel Huynh RBC 3.55 106/ul Critically low 4.20-5.[address] [facility] Comment on above: Performed By: #### 4 [id number] #### [facility] [address] [address] [address] Yariel Huynh WBC 15.4 103/ul Critically high 4.0-11.0 [facility] Comment on above: Performed By: #### 4 [id number] #### [facility] [address] [place] [address] Dr. Yariel Huynh ASYMPTOMATIC COVID-19 ANTIGE Non 12-08-2020 EUA Statement SEE BELOW Normal [facility] Comment on above: Result Comment: This [...] is revoked sooner. Performed By: #### 4 [id number] #### [facility] [address] [place] [address] Dr. Yariel Huynh SARS-CoV-2 (COVID-19) RNA ESTEBAN+probe Ql (Unsp spec) Negative Normal NEGATIVE [facility] Comment on above: Result Comment: Nega tive results are presumptive. They do not preclude infection and should not be used as the sole basis for treatment decisions. Additional confirmatory testing by a molecular method should be considered. Performed By: #### 4 [id number] #### [facility] [address] [place] [address] Dr. Yariel Huynh BUNon 12-08-2020 Urea nitrogen [Mass/Vol] 15.0 mg/dL Normal 7.0-17.0 [facility] Comment on above: Performed By: #### 4 [id number] #### [facility] [address] [place] [address] Dr. Yariel Huynh CBC AUTO DIFFon 12-08-2020 BASO # 0.0 103/ul Normal 0.0-0.1 [facility] Comment on above: Performed By: #### 4 [id number] #### [facility] [address] [place] [address] Dr. Yariel Huynh Basophils/100 WBC (Bld) 0.3 % Normal 0.2-2.0 [facility] Comment on above: Performed By: #### 4 [id number] #### [facility] [address] [place] [address] Dr. Yariel Huynh EO # 0.0 103/ul Normal 0.0-0.7 [facility] Comment on above: Performed By: #### 4 [id number] #### [facility] [address] [place] [address] Dr. Yariel Huynh Eosinophils/100 WBC (Bld) 0.4 % Critically low 0.9-7.0 [facility] Comment on above: Performed By: #### 4 [id number] #### [facility] [address] [place] [address] Dr. Yariel Huynh Erythrocyte distribution width (RBC) [Ratio] 13.8 % Normal 11.0-15.0 [facility] Comment on above: Performed By: #### 4 [id number] #### [facility] [address] [place] [address] Dr. Yariel Huynh Hematocrit (Bld) [Volume fraction] 31.8 % Critically low 36.0-48.0 [facility] Comment on above: Performed By: #### 4 [id number] #### [facility] [address] [place] [address] Dr. Yariel Huynh Hemoglobin (Bld) [Mass/Vol] 10.1 g/dL Critically low 12.0-16.0 [facility] Comment on above: Performed By: #### 4 [id number] #### [facility] [address] [place] [address] Dr. Yariel Huynh IG # 0.07 10e3/ul Critically high 0.00-0.03 [facility] Comment on above: Performed By: #### 4 [id number] #### [facility] [address] [place] [address] Dr. Yariel Huynh IG % 0.7 % Critically high 0.0-0.5 [facility] Comment on above: Performed By: #### 4 [id number] #### [facility] [address] [place] [address] Dr. Yariel Huynh LYMPH # 2.3 103/ul Normal 1.2-3.8 [facility] Comment on above: Performed By: #### 4 [id number] #### [facility] [address] [place] [address] Dr. Yariel Huynh Lymphocytes/100 WBC (Bld) 22.7 % Normal 20.5-60.0 [facility] Comment on above: Performed By: #### 4 [id number] #### [facility] [address] [place] [address] Dr. Yariel Huynh MANUAL DIFF REQ NO Normal [facility] Comment on above: Performed By: #### 4 [id number] #### [facility] [address] [place] [address] Dr. Yariel Huynh MCH (RBC) [Entitic mass] 26.7 pg Normal 26.7-34.0 [facility] Comment on above: Performed By: #### 4 [id number] #### [facility] [address] [place] [address] Dr. Yariel Huynh MCHC (RBC) [Mass/Vol] 31.8 g/dL Normal 29.9-35.2 [facility] Comment on above: Performed By: #### 4 [id number] #### [facility] [address] [address] [address] Yariel Huynh MCV (RBC) [Entitic vol] 84.1 fL Normal 81.0-99.0 [facility] Comment on above: Performed By: #### 4 [id number] #### [facility] [address] [place] [address] Dr. Yariel Huynh MONO # 0.6 103/ul Normal 0.3-0.8 [facility] Comment on above: Performed By: #### 4 [id number] #### [facility] [address] [place] [address] Dr. Yariel Huynh Monocytes/100 WBC (Bld) 6.3 % Normal 1.7-12.0 [facility] Comment on above: Performed By: #### 4 [id number] #### [facility] [address] [place] [address] Dr. Yariel Huynh NEUT # 7.0 103/ul Critically high 1.4-6.[address] [facility] Comment on above: Performed By: #### 4 [id number] #### [facility] [address] [place] [address] Dr. Yariel Huynh Neutrophils/100 WBC (Bld) 69.6 % Normal 43.0-75.0 [facility] Comment on above: Performed By: #### 4 [id number] #### [facility] [address] [place] [address] Dr. Yariel Huynh Platelet mean volume (Bld) [Entitic vol] 12.9 fL Normal 9.5-13.5 [facility] Comment on above: Performed By: #### 4 [id number] #### [facility] [address] [place] [address] Dr. Yariel Huynh PLT 193 103/ul Normal 150-450 [facility] Comment on above: Performed By: #### 4 [id number] #### [facility] [address] [place] [address] Dr. Yariel Huynh RBC 3.78 106/ul Critically low 4.20-5.40 [facility] Comment on above: Performed By: #### 4 [id number] #### [facility] [address] [place] [address] Dr. Yariel Huynh WBC 10.1 103/ul Normal 4.0-11.0 [facility] Comment on above: Performed By: #### 4 [id number] #### [facility] [address] [place] [address] Dr. Yariel Huynh CREATININEon 12-08-2020 Creatinine [Mass/Vol] 0.80 mg/dL Normal 0.52-1.04 [facility] Comment on above: Performed By: #### L DH, URIC, AST, ALT, BUN, CREA #### [facility] [address] [place] [address] Clyde Ramachandran EGFR-AF SURINAMESE >60 Normal >=60 [facility] Comment on above: Performed By: #### L DH, URIC, AST, ALT, BUN, CREA #### [facility] [address] [place] [address] Clyde Ramachandran EGFR-NON AF SURINAMESE >60 Normal >=60 [facility] Comment on above: Performed By: #### L DH, URIC, AST, ALT, BUN, CREA #### [facility] [address] [place] [address] Clyde Ramachandran DRUG SCREEN RAPID (URINE)on 12-08-2020 AMP Negative Normal NEGATIVE [facility] Comment on above: Performed By: #### 4 [id number] #### [facility] [address] [place] [address] Dr. Yariel Huynh BAR Negative Normal NEGATIVE [facility] Comment on above: Performed By: #### 4 [id number] #### [facility] [address] [place] [address] Dr. Yariel Huynh BUP Negative Normal NEGATIVE [facility] Comment on above: Performed By: #### 4 [id number] #### [facility] [address] [place] [address] Dr. Yariel Huynh BZO Negative Normal NEGATIVE [facility] Comment on above: Performed By: #### 4 [id number] #### [facility] [address] [place] [address] Dr. Yariel Huynh ROSA Negative Normal NEGATIVE [facility] Comment on above: Performed By: #### 4 [id number] #### [facility] [address] [place] [address] Dr. Yariel Huynh CUT-OFFS SEE BELOW Normal [facility] Comment on above: Result Comment: AMP (Amphetamine): 500ng/mL, BAR (Barbituates): 200 ng/mL, BZO (Benzodiazepines): 150 ng/mL, BUP (Buprenorphine): 10 ng/mL, ROSA (Cocaine): 150 ng/mL, mAMP (Methamphetamine): 500 ng/mL, MTD (Methadone): 200 ng/mL, OPI (Opiates): 100 ng/mL, OXY (Oxycodone): 100 ng/mL, PCP (Phencyclidine): 25 ng/mL, PPX (Propoxyphene): 300 ng/mL, THC (Cannabinoids): 50 ng/mL, TCA (Trycyclic Antidepressants): 300 ng/mL Performed By: #### 4 [id number] #### [facility] [address] [place] [address] Dr. Yariel Huynh DRUG CUT HEADER DRUG CLASS TEST SYSTEM CUT-OFF CONCENTRATIONS ARE FOLLOWS: Normal [facility] Comment on above: Performed By: #### 4 [id number] #### [facility] [address] [place] [address] Dr. Yariel Huynh mAMP Negative Normal NEGATIVE [facility] Comment on above: Performed By: #### 4 [id number] #### [facility] [address] [place] [address] Dr. Yariel Huynh MTD Negative Normal NEGATIVE [facility] Comment on above: Performed By: #### 4 [id number] #### [facility] [address] [place] [address] Dr. Yariel Huynh OPI Negative Normal NEGATIVE [facility] Comment on above: Performed By: #### 4 [id number] #### [facility] [address] [place] [address] Dr. Yariel Huynh OXY Negative Normal NEGATIVE [facility] Comment on above: Performed By: #### 4 [id number] #### [facility] [address] [place] [address] Dr. Yariel Huynh PCP Negative Normal NEGATIVE [facility] Comment on above: Performed By: #### 4 [id number] #### [facility] [address] [place] [address] Dr. Yariel Huynh PPX Negative Normal NEGATIVE [facility] Comment on above: Performed By: #### 4 [id number] #### [facility] [address] [place] [address] Dr. Yariel Huynh TCA Negative Normal NEGATIVE [facility] Comment on above: Performed By: #### 4 [id number] #### [facility] [address] [place] [address] Dr. Yariel Huynh THC Negative Normal NEGATIVE [facility] Comment on above: Performed By: #### 4 [id number] #### [facility] [facility] [address] [place] [address] Dr. Yariel Huynh LDHon 12-08-2020 LDH 163 U/L Normal 122-222 [facility] Comment on above: Performed By: #### L DH, URIC, AST, ALT, BUN, CREA #### [facility] [address] [place] [address] Clydejustyn Ramachandran SGOTon 12-08-2020 AST [Catalytic activity/Vol] 15 U/L Normal 14-36 [facility] Comment on above: Performed By: #### L DH, URIC, AST, ALT, BUN, CREA #### [facility] [address] [place] [address] Clyde Madie SGPTon 12-08-2020 ALT [Catalytic activity/Vol] 12 U/L Normal 9-52 [facility] Comment on above: Performed By: #### L DH, URIC, AST, ALT, BUN, CREA #### [facility] [address] [place] [address] Clyde Madie TYPE AND SCREENon 12-08-2020 TYPE AND SCREEN Negative Normal [facility] Comment on above: Performed By: #### T NS #### [facility] [address] [place] [address] Clyde Madie URIC ACID SERUMon 12-08-2020 Urate [Mass/Vol] 5.0 mg/dL Normal 2.5-6.2 [facility] Comment on above: Performed By: #### L DH, URIC, AST, ALT, BUN, CREA #### [facility] [address] [address] Clyde Ramachandran US PREG BIOPHY W NON [...] by: POLLO PABLO Date: 2020-12-08 08:45 Normal [facility] US PREG BIOPHY W NON [...] by: SCOTT CORTES Date: 2020-12-01 10:52 Normal [facility] Vital Signs Date Time Vital Sign Value Performing Clinician Fiori lity 07-08-2024 09:52-0500 Body weight 67.31 kg Sammie Neftaly [employer] Work Phone: [facility] 07-08-2024 09:52-0500 Diastolic blood pressure 70 mm[Hg] Sammie Neftaly DO Work Phone: [facility] 07-08-2024 09:52-0500 Systolic blood pressure 118 mm[Hg] Sammie Neftaly DO Work Phone: [facility] 06-07-2024 09:47-0500 Body weight 66.22 kg Noms Nurse [facility] 06-07-2024 09:47-0500 Diastolic blood pressure 72 mm[Hg] Noms Nurse [facility] 06-07-2024 09:47-0500 Systolic blood pressure 122 mm[Hg] Noms Nurse [facility] Encounters Encounter Date Encounter Type Care Provider Facility Start: 07-08-2024 End: 07-08-2024 Bamboo flowsheet Sammie Neftaly DO Work Phone: [facility] Start: 07-08-2024 End: 07-08-2024 Bamboo flowsheet Sammie Neftaly DO Work Phone: [facility] Start: 07-08-2024 End: 07-08-2024 Office outpatient visit 15 minutes Sammie Neftaly DO Work Phone: [facility] Comment on above: Second trimester pre gnancy; 14 weeks gestation of ; Diabetes mellitus screening; History of miscarriage Start: 07-08-2024 End: 07-08-2024 ambulatory SAMMIE NEFTALY Not Available Start: 07-01-2024 End: 07-01-2024 Clinisync Result Encounter Sammie Neftaly DO Work Phone: [facility] External Department Unsolicited Start: 07-01-2024 End: 07-01-2024 Clinisync Result Encounter Sammie Neftaly DO Work Phone: [facility] Unsolicited Start: 06-07-2024 End: 06-07-2024 ambulatory [facility] Neftaly Nurse [facility] Comment on above: GA: 9w4d Start: 04-05-2024 End: 04-05-2024 Clinisync Result Encounter Sammie Neftaly DO Work Phone: [facility] External Department Unsolicited Start: 04-05-2024 End: 04-05-2024 [...] Date Procedure Procedure Detail Performing Clinician Start: 07-01-2024 ALL CBC WITH AUTO DIFF Sammie Leungo DO Work Phone: Start: 06-07-2024 Urnls dip stick/tabl et rgnt non-auto w/o micrscp Sammie Neftaly DO Work Phone: Start: 04-05-2024 [facility] PREG [...] Screening for malign ant neoplasm of cervix [facility] Start: 08-05-2024 End: 08-05-2024 Patient encounter procedure 08/05/2024 9:30 AM EST Routine [facility] [address] [place] [id number] Diya Villanueva PA [address] [place] [address] [facility] Start: 07-08-2024 End: 07-08-2025 Measurement of glucose 1 hour after glucose challenge for glucose tolerance test Glucose tolerance, 1 hour Lab Routine Diabetes mellitus screening Expected: 07/08/2024 (Approximate), Expires: 07/08/2025 [facility] Work Phone: Comment on above: Expected: 07/08/2024 (Approximate), Expires: 07/08/2025 Start: 07-08-2024 End: 07-08-2024 Patient encounter procedure [facility] Comment on above: Arrived Start: 06-07-2024 End: 06-07-2025 ABO/Rh ABO/Rh Lab Routine Missed menses , unspecified gestational age Expected: 06/07/2024 (Approximate), Expires: 06/07/2025 [facility] Comment on above: Expected: 06/07/2024 (Approximate), Expires: 06/07/2025 Start: 06-07-2024 End: 06-07-2025 Blood type and Indirect antibody screen panel - Blood Type and screen Lab Routine Missed menses , unspecified gestational age Expected: 06/07/2024 (Approximate), Expires: 06/07/2025 [facility] Work Phone: Comment on above: Expected: 06/07/2024 (Approximate), Expires: 06/07/2025 Start: 06-07-2024 End: 06-07-2025 Drugs of abuse panel - Urine by Screen method Rapid drug screen, urine Lab Routine , unspecified gestational age Encounter for supervision of normal first in first trimester Expected: 06/07/2024 (Approximate), Expires: 06/07/2025 [facility] Comment on above: Expected: 06/07/2024 (Approximate), Expires: 06/07/2025 Start: 04-19-2024 End: 04-19-2024 ambulatory 04/19/2024 10:00 AM EST Initial [facility] [address] [place] [id number] [facility] Start: 04-19-2024 End: 04-19-2024 Professional / ancillary services management 04/19/2024 9:30 AM EST Ancillary Procedure [facility] [address] [place] [id number] [facility] Start: 02-04-2024 Influenza vaccination Influenza Vacc ine (#1) [facility] Start: 2013 Screening for malign ant neoplasm of cervix Pap Smear [facility] Bacteria identified in Urine by Culture Urine culture Microbiology Routine Missed menses Ordered: 06/07/2024 [facility] Comment on above: Ordered: 06/07/2024 CBC W Auto Different ial panel - Blood CBC and differential Lab Routine Missed menses , unspecified gestational age Ordered: 06/07/2024 [facility] Comment on above: Ordered: 06/07/2024 Hemoglobin A1c/Hemoglobin.total in Blood Hemoglobin A1c Lab Routine Missed menses , unspecified gestational age Ordered: 06/07/2024 [facility] Comment on above: Ordered: 06/07/2024 Hepatitis B virus surface Ag [Presence] in Serum or Plasma by Immunoassay Hepatitis B surface antigen Lab Routine Missed menses , unspecified gestational age Ordered: 06/07/2024 [facility] Comment on above: Ordered: 06/07/2024 Hepatitis C virus Ab [Presence] in Serum or Plasma by Immunoassay Hepatitis C antibody Lab Routine Missed menses , unspecified gestational age Ordered: 06/07/2024 [facility] Comment on above: Ordered: 06/07/2024 HIV-1/HIV-2 antigen/antibody combination immunoassay HIV-1 and HIV-2 antibodies Lab Routine Missed menses , unspecified gestational age Ordered: 06/07/2024 [facility] Comment on above: Ordered: 06/07/2024 Reagin Ab [Presence] in Serum by RPR RPR Lab Routine Missed menses , unspecified gestational age Ordered: 06/07/2024 [facility] Comment on above: Ordered: 06/07/2024 Rubella antibody, IgG Rubella an tibody, IgG Lab Routine Missed menses , unspecified gestational age Ordered: 06/07/2024 [facility] Comment on above: Ordered: 06/07/2024 Immunizations Immunization Date Immunization Notes Care Provider Khai lopez 05-09-2019 influenza virus vacc ine, unspecified formulation Sammie Higginbotham DO Work Phone: [facility] Payers Date Payer Category Payer Private Health Insurance [facility] MEDICAID [id number] 2017 Medicaid [id number] 1992 Unknown [id number] [id number]. 593 1992 Unknown [id number] 2.16.840.1.878196.3.579.2. 593 1992 Unknown [id number] 2.16.840.1.605462.3.579.2. 593 1992 Unknown [id number] 2.16.840.1.414914.3.579.2. 593 1992 Unknown [id number] 2.16.840.1.831810.3.579.2. 593 1992 Unknown [id number] 2.16.840.1.122415.3.579.2. 593 1992 Unknown [id number] 2.16.840.1.304039.3.579.2. 593 1992 Unknown [id number] 2.16.840.1.031401.3.579.2. 593 1992 Unknown [id number] 2.16.840.1.544326.3.579.2. 593 1992 Unknown [id number] 2.16.840.1.983162.3.579.2. 1259 1992 Unknown [id number] 2.16.840.1.821731.3.579.2. 1259 1992 Unknown [id number] 2.16.840.1.575940.3.579.2. 1259 1959 Self-pay [id number] 1959 Unknown [id number] Social History Date Type Detail Facility Tobacco smoking stat [facility] Tobacco smoking consumption unknown [facility] Start: 1992 Sex assigned at Not on file [facility] Gender identity Not on file [facility] Start: 04-15-2024 [facility] History of Present illness Narrative 07-08-2024 MARLEN Estrada - 07/08/2024 9:40 AM EST Note Date & Type Note Facility 07-08-2024 History of Presen t illness Narrative Reason for Appointment: Patient ID: Bre Martel is a 34 y.o. female who presents for Routine Visit Patient presents today for Return OB appointment. MEDICATIONS Current Outpatient Medications Medication Instructions Progesterone Micronized (progesterone, bulk,) powder Progesterone 200 mg, Vaginal, Nightly, Insert suppository vaginally every night at bedtime until 12 weeks gestation ALLERGIES No Known Allergies PROBLEMS Active Ambulatory Problems Diagnosis Date Noted No Active Ambulatory Problems Resolved Ambulatory Problems Diagnosis Date Noted No Resolved Ambulatory Problems No Additional Past Medical History HISTORY PAST MEDICAL HISTORY SOCIAL HISTORY History reviewed. No pertinent past medical history. Social History Tobacco Use Smoking status: Not on file Smokeless tobacco: Not on file Substance Use Topics Alcohol use: Not on file Drug use: Not on file FAMILY HISTORY No family history on file. SURGICAL HISTORY History reviewed. No pertinent surgical history. REVIEW OF SYSTEMS Review of Systems: Review of Systems Constitutional: Negative. HENT: Negative. Eyes: Negative. Respiratory: Negative. Cardiovascular: Negative. Gastrointestinal: Negative. Genitourinary: Negative. Musculoskeletal: Negative. Skin: Negative. Neurological: Negative. All other systems reviewed and are negative. Hematological: Negative. Endocrine: Negative. Allergic/Immunologic: Negative. OBJECTIVE Objective: Physical Exam Constitutional: Appearance: Normal appearance. She is normal weight. HENT: Head: Normocephalic. Cardiovascular: Rate and Rhythm: Normal rate. Pulses: Normal pulses. Pulmonary: Effort: Pulmonary effort is normal. Breath sounds: Normal breath sounds. Abdominal: Palpations: Abdomen is soft. Musculoskeletal: General: Normal range of motion. Neurological: General: No focal deficit present. Mental Status: She is alert and oriented to person, place, and time. Psychiatric: Mood and Affect: Mood normal. Behavior: Behavior normal. Thought Content: Thought content normal. Judgment: Judgment normal. Vitals and nursing note reviewed. Vitals: There is no height or weight on file to calculate BMI. BP: 118/70 Patient's last menstrual period was 04/01/2024. ASSESSMENT & PLAN ICD-10-CM 1. Second trimester Z34.92 2. 14 weeks gestation of Z3A.14 3. Diabetes mellitus screening Z13.1 Glucose tolerance, 1 hour Glucose tolerance, 1 hour 4. History of miscarriage Z87.59 Progesterone 200 MG suppository Return OB: Patient presents today for a routine obstetrics appointment. Patient is currently 14w0d . Patient states she is doing well but has complaints of being tired due to current . Patient has verbalizes frequent movement. Orders Placed This Encounter Procedures Glucose tolerance, 1 hour Follow Up: Patient is to return to office in 4 week for routine OB appointment. Documented by MARLEN Estrada on behalf of: Sammie Higginbotham DO documented in this encounter [facility] History of Present illness Narrative 06-07-2024 Isabel [...] 12/08/20 M Vag-Spont Y ADELAIDE 2 SAB 2018 U Complete 1 12/19/16 4 lb 4 [...] or undercooked meat, and stay away from [facility]. Patient has also been advised to not [...] trimester documented in this encounter [facility] Evaluation note Note Date & Type Note Facility Evaluation note Diagnosis Second trimester state, incidental 14 weeks gestation of Diabetes mellitus screening Screening for diabetes mellitus History of miscarriage Personal history of other genital system and obstetric disorders documented in this encounter [facility] Summary Purpose Family History No Family History Records FoundNo Family History Records Found Advance Directives No Advanced Directives Records FoundNo Advanced Directives Records Found Additional Source Comments INFORMATION SOURCE (unrecogn ized section and content) DATE CREATED AUTHOR 11/24/2021 [facility] DATE CREATED AUTHOR AUTHOR'S ORGANIZ ATION 07/09/2024 [facility] [employer] Care Teams (unrecognized sec tion and content) Track Layer Head Relationship Specialty Start Date End Date Sammie Higginbotham, DO [address] [place] [address] PCP - [facility] 09/04/23 Track Layer Head Relationship Specialty Start Date End Date Sammie Higginbotham, DO [address] [place] [address] PCP [facility] 09/04/23 Track Layer Head Relationship Specialty Start Date End Date Sammie Higginbotham, DO [address] [place] [address] PCP [facility] 09/04/23 Track Layer Head Relationship Specialty Start Date End Date Sammie Higginbotham, DO [address] [place] [address] PCP [facility] 09/04/23 Reason for Visit (unrecogniz ed section and content) Reason Comments Amenorrhea Reason Comments Routine Visit FOR RECORDS PERTAINING TO PATIENTS WHO ARE [...] BE BASED ON THE PRIMARY CLINICAL RECORDS. [facility] [facility]. provides no warranty or guarantee of the accuracy or completeness of information in this document.
[2024-07-27 11:23] LABS: Glucose 1 Hour 151 mg/dL (<130)
== END 2024-07-27 09:47 | disposition home or self-care (01) ==
PROVIDERS: Visit Provider Obstetrics & Gynecology
DX: Z13.1 Encounter for screening for diabetes mellitus (principal)
CPT/HCPCS: 36415; 82950

== ENCOUNTER 2024-08-03 07:48 | Outpatient (OUT) | payer OTHER, SELFPAY ==
--- OUTSIDE RECORDS SUMMARY | 2024-08-03 07:51 | XMS_ITS | CCD ---
Author Organization [facility] CliniSytn Care Team Providers Care Bouffant Curtain Machine Tender Name Role Phone NEFTALY, DR COCHRAN Attending [...] Unavaila ble KARASIPavan, DR LOTT Consulting Unavailable [place], DR POLLO Gonzalez Consulting Unavailable NEFTALY, DR [...] Class(es) Dates Sig (Normalized) Sig (Original) Progesterone (3 sources) Progesterone Start: 06-13-2024 Progesterone Micronized (progesterone, bulk,) powder 06/13/2024 Active Progesterone 200 MG suppository (8 sources) Start: 07-08-2024 End: 08-07-2024 Progesterone 200 [...] Test Name Value Interpretation Reference Range Facility GLUCOSE 1 HOURon 07-27-2024 Glucose [Mass/Vol] 151 mg/dL High NINF - 13 0 mg/dL [facility] Interpretation and review of laboratory results Abnormal [facility] re [facility] ALL CBC WITH AUTO DIFFon BASOPHILS ABSOLUTE AUTO 0 [facility] Basophils/100 WBC (Bld) 0.3 % 0.2 - 2.0 % [facility] Eosinophils/100 WBC (Bld) 0.2 % Low 0.9 - 7.0 % [facility] Erythrocyte distribution width (RBC) [Ratio] 13.5 % 11.0 - 15.0 % [facility] Hematocrit (Bld) [Volume fraction] 36 % 36.0 - 48.0 % [facility] Hemoglobin (Bld) [Mass/Vol] 12.5 g/dL 12.0 - 16.0 g/dL [facility] IMMATURE GRANULOCYTES ABS AUTO 0.05 High [facility] Immature granulocytes/100 WBC (Bld) 0.4 % 0.0 - 0.5 % [facility] Interpretation and review of laboratory results Abnormal [facility] re LYMPHOCYTES ABSOLUTE AUTO 2.1 [facility] Lymphocytes/100 WBC (Bld) 16 % Low 20.5 - 60.0 % [facility] MCH (RBC) [Entitic mass] 30.1 pg 26.7 - 34.0 pg [facility] MCHC (RBC) [Mass/Vol] 34.7 g/dL 29.9 - 35.2 g/dL [facility] MCV (RBC) [Entitic vol] 86.7 fL 81.0 - 99.0 fL [facility] MONOCYTES ABSOLUTE AUTO 0.9 High [facility] Healthcare Monocytes/100 WBC (Bld) 6.6 % 1.7 - 12.0 % [facility] Healthcare NEUTROPHILS ABSOLUTE AUTO 9.9 High [facility] Healthcare Neutrophils/100 WBC (Bld) 76.5 % High 43.0 - 75.0 % [facility] Platelet mean volume (Bld) [Entitic vol] 10.7 fL 9.5 - 13.5 fL [facility] Healthcare TBH EO # 0 [facility] TBH PLT 276 [facility] TB[facility] RBC 4.15 Low [facility] TB[facility] WBC 12.9 High [facility] HCG ( test) Ql (U)o n 06-07-2024 Interpretation and review of laboratory results Abnormal [facility] Preg Test, Ur Positive Negative Merged with [facility] care [facility] US OB TRANSVAGINALon [...] x 4.7 cm (8 weeks, 3 days). Jakin rump length is 2.5 cm (9 weeks, [...] UA Negative Negative - 4(70) +++ mg/dL [facility] Blood, UA Negative Negative - 50 Dario/mcL [facility] Healthcare Clarity, UA Clear [facility] Color, UA Yellow [facility] Glucose, UA Negative Negative - 1999(110) ++++ mg/dL [facility] Interpretation and review of laboratory results Normal [facility] re Ketones, UA Negative Negative - 160(16) ++++ mg/dL [facility] Leukocytes, UA Negative Negative - 500+++ Oksana/mcL [facility] Nitrite, UA Negative Negative - Positive [facility] pH, UA 5.5 5 - 9 [facility] e Protein, UA Negative Negative - 1999(20) ++++ mg/dL [facility] Spec Grav, UA 1.015 1 - 1.03 [facility] Urobilinogen, UA 0.2 0.2 - 12 mg/dL [facility] PREG QUANT HCGon 04-05- 024 HCG QUANTITATIVE <1 mIU/mL [facility] Comment on above: 5-50 0.2-1 WEEK 50-500 1-2 WEEKS 100-5,000 2-3 WEEKS 500-10,000 3-4 WEEKS 1,000-50,000 4-5 WEEKS 10,000-100,000 5-6 WEEKS 15,000-200,000 6-8 WEEKS 10,000-100,000 2-3 [facility] PREG QUANT HCGon 25-2 024 HCG QUANTITATIVE 15 mIU/mL [facility] Comment on above: 5-50 0.2-1 WEEK 50-500 1-2 WEEKS 100-5,000 2-3 WEEKS 500-10,000 3-4 WEEKS 1,000-50,000 4-5 WEEKS 10,000-100,000 5-6 WEEKS 15,000-200,000 6-8 WEEKS 10,000-100,000 2-3 [facility] PREG QUANT HCGon 10-21-2 024 HCG QUANTITATIVE 22 mIU/mL [facility] Comment on above: 5-50 0.2-1 WEEK 50-500 1-2 WEEKS 100-5,000 2-3 WEEKS 500-10,000 3-4 WEEKS 1,000-50,000 4-5 WEEKS 10,000-100,000 5-6 WEEKS 15,000-200,000 6-8 WEEKS 10,000-100,000 2-3 MONTHS [facility] TBH PREG QUANT HCGon 03-23- 024 HCG QUANTITATIVE 32 mIU/mL [facility] Comment on above: 5-50 0.2-1 WEEK 50-500 1-2 WEEKS 100-5,000 2-3 WEEKS 500-10,000 3-4 WEEKS 1,000-50,000 4-5 WEEKS 10,000-100,000 5-6 WEEKS 15,000-200,000 6-8 WEEKS 10,000-100,000 2-3 MONTHS [facility] PAP ACOG PANEL 2: 21 to 29on 09-22-2021 . . [facility] Comment on above: Performed By: #### [id number] #### [facility] [address] [place] [address] Dr. Yariel Huynh Age Gdln ACOG Testing - [facility] Comment on above: Performed By: #### 4 [id number] #### [facility] [address] [place] [address] Dr. Yariel Huynh DIAGNOSIS: Comment [facility] Comment on above: Result Comment: NEGA TIVE FOR INTRAEPITHELIAL LESION OR MALIGNANCY. Performed By: #### [id number] #### [facility] [address] [place] [address] Dr. Yariel Huynh Methodology: Comment [facility] Comment on above: Result Comment: This liquid based ThinPrep(R) pap test was screened with the use of an image guided system. Performed By: #### [id number] #### [facility] [address] [place] [address] Dr. Yariel Huynh Note: Comment [facility] Comment on above: Result Comment: The Pap smear is a screening test designed to aid in the detection of premalignant and malignant conditions of the uterine cervix. It is not a diagnostic procedure and should not be used as the sole means of detecting cervical cancer. Both false-positive and false-negative reports do occur. . Performed By: #### [id number] #### [facility] [address] [place] [address] Dr. Yariel Huynh Performed by: Comment [facility] Comment on above: Result Comment: Carole Lee Making 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 (ASCP) Performed By: #### 4 [id number] #### [facility] [address] [place] [address] Dr. Yariel Huynh Reflex Criteria: Comment Normal [facility] Comment on above: Result Comment: The HPV DNA reflex criteria were not met with this specimen result therefore, no HPV testing was performed. . Performed By: #### 4 [id number] #### [facility] [address] [place] [address] Dr. Yariel Huynh Specimen adequacy: Comment Normal [facility] Comment on above: Result Comment: Sati sfactory for evaluation. Endocervical and/or squamous metaplastic cells (endocervical component) are present. Performed By: #### 4 [id number] #### [facility] [address] [place] [address] Dr. Yariel Huynh RUBELLA AB IGGon 12-10-2020 Rubella Antibodies, IgG 1.46 index Normal Immune >0.99 [facility] Comment on above: Result Comment: Non- immune <0.90 Equivocal 0.90 - 0.99 Immune >0.99 Performed By: #### R [id number] #### [facility] [address] [place] [address] Clyde Ramachandran CBC AUTO DIFFon 12-09-2020 BASO # 0.1 103/ul Normal 0.0-0.1 [facility] Comment on above: Performed By: #### [id number] #### [facility] [address] [place] [address] Dr. Yariel Huynh Basophils/100 WBC (Bld) 0.3 % Normal 0.2-2.0 [facility] Comment on above: Performed By: #### 4 [id number] #### [facility] [address] [place] [address] Dr. Yariel Huynh EO # 0.0 103/ul Normal 0.0-0.7 [facility] Comment on above: Performed By: #### 4 [id number] #### [facility] [address] [place] [address] Dr. Yariel Huynh Eosinophils/100 WBC (Bld) 0.1 % Critically low 0.9-7.0 [facility] Comment on above: Performed By: #### 4 [id number] #### [facility] [address] [place] [address] Dr. Yariel Huynh Erythrocyte distribution width (RBC) [Ratio] 13.9 % Normal 11.0-15.0 [facility] Comment on above: Performed By: #### 4 [id number] #### [facility] [address] [place] [address] Dr. Yariel Huynh Hematocrit (Bld) [Volume fraction] 29.5 % Critically low 36.0-48.0 [facility] Comment on above: Performed By: #### 4 [id number] #### [facility] [address] [place] [address] Dr. Yariel Huynh Hemoglobin (Bld) [Mass/Vol] 9.3 g/dL Critically low 12.0-16.0 [facility] Comment on above: Performed By: #### 4 [id number] #### [facility] [address] [place] [address] Dr. Yariel Huynh IG # 0.08 10e3/ul Critically high 0.00-0.03 [facility] Comment on above: Performed By: #### 4 [id number] #### [facility] [address] [place] [address] Dr. Yariel Huynh IG % 0.5 % Normal 0.0-0.5 [facility] Comment on above: Performed By: #### 4 [id number] #### [facility] [address] [place] [address] Dr. Yariel Huynh LYMPH # 1.7 103/ul Normal 1.2-3.8 [facility] Comment on above: Performed By: #### 4 [id number] #### [facility] [address] [place] [address] Dr. Yariel Huynh Lymphocytes/100 WBC (Bld) 10.8 % Critically low 20.5-60.0 [facility] Comment on above: Performed By: #### 4 [id number] #### [facility] [address] [place] [address] Dr. Yariel Huynh MANUAL DIFF REQ NO Normal [facility] Comment on above: Performed By: #### 4 [id number] #### [facility] [address] [place] [address] Dr. Yariel Huynh MCH (RBC) [Entitic mass] 26.2 pg Critically low 26.7-34.0 [facility] Comment on above: Performed By: #### 4 [id number] #### [facility] [address] [place] [address] Dr. Yariel Huynh MCHC (RBC) [Mass/Vol] 31.5 g/dL Normal 29.9-35.2 [facility] Comment on above: Performed By: #### 4 [id number] #### [facility] [address] [place] [address] Dr. Yariel Huynh MCV (RBC) [Entitic vol] 83.1 fL Normal 81.0-99.0 [facility] Comment on above: Performed By: #### 4 [id number] #### [facility] [address] [place] [address] Dr. Yariel Huynh MONO # 0.8 103/ul Normal 0.3-0.8 [facility] Comment on above: Performed By: #### 4 [id number] #### [facility] [address] [place] [address] Dr. Yariel Huynh Monocytes/100 WBC (Bld) 5.2 % Normal 1.7-12.0 [facility] Comment on above: Performed By: #### 4 [id number] #### [facility] [address] [place] [address] Dr. Yariel Huynh NEUT # 12.8 103/ul Critically high 1.4-6.[address] [facility] Comment on above: Performed By: #### 4 [id number] #### [facility] [address] [place] [address] Dr. Yariel Huynh Neutrophils/100 WBC (Bld) 83.1 % Critically high 43.0-75.0 [facility] Comment on above: Performed By: #### 4 [id number] #### [facility] [address] [place] [address] Dr. Yariel Huynh Platelet mean volume (Bld) [Entitic vol] 12.6 fL Normal 9.5-13.5 [facility] Comment on above: Performed By: #### 4 [id number] #### [facility] [address] [place] [address] Dr. Yariel Huynh PLT 203 103/ul Normal 150-450 [facility] Comment on above: Performed By: #### 4 [id number] #### [facility] [address] [address] [address] Yariel Huynh RBC 3.55 106/ul Critically low 4.20-5.40 [facility] Comment on above: Performed By: #### 4 [id number] #### [facility] [address] [place] [address] Dr. Yariel Huynh WBC 15.4 103/ul Critically high 4.0-11.[address] [facility] Comment on above: Performed By: #### 4 [id number] #### [facility] [address] [place] [address] Dr. Yariel Huynh ASYMPTOMATIC COVID-19 ANTIGE Non 12-08-2020 EUA Statement SEE BELOW Normal [facility] Comment on above: Result Comment: This [...] is revoked sooner. Performed By: #### 4 [id number] #### [facility] [address] [place] [address] Dr. Yariel Huynh SARS-CoV-2 (COVID-19) RNA ESTEBAN+probe Ql (Unsp spec) Negative Normal NEGATIVE [facility] Comment on above: Result Comment: Nega tive results are presumptive. They do not preclude infection and should not be used as the sole basis for treatment decisions. Additional confirmatory testing by a molecular method should be considered. Performed By: #### 4 [id number] #### [facility] [address] [place] [address] Dr. Yariel Huynh BUNon 12-08-2020 Urea nitrogen [Mass/Vol] 15.0 mg/dL Normal 7.0-17.0 [facility] Comment on above: Performed By: #### 4 [id number] #### [facility] [address] [place] [address] Dr. Yariel Huynh CBC AUTO DIFFon 12-08-2020 BASO # 0.0 103/ul Normal 0.0-0.1 [facility] Comment on above: Performed By: #### 4 [id number] #### [facility] [address] [place] [address] Dr. Yariel Huynh Basophils/100 WBC (Bld) 0.3 % Normal 0.2-2.0 [facility] Comment on above: Performed By: #### 4 [id number] #### [facility] [address] [place] [address] Dr. Yariel Huynh EO # 0.0 103/ul Normal 0.0-0.7 [facility] Comment on above: Performed By: #### 4 [id number] #### [facility] [address] [place] [address] Dr. Yariel Huynh Eosinophils/100 WBC (Bld) 0.4 % Critically low 0.9-7.0 [facility] Comment on above: Performed By: #### 4 [id number] #### [facility] [address] [place] [address] Dr. Yariel Huynh Erythrocyte distribution width (RBC) [Ratio] 13.8 % Normal 11.0-15.0 [facility] Comment on above: Performed By: #### 4 [id number] #### [facility] [address] [address] [address] Yariel Huynh Hematocrit (Bld) [Volume fraction] 31.8 % Critically low 36.0-48.0 [facility] Comment on above: Performed By: #### 4 [id number] #### [facility] [address] [place] [address] Dr. Yariel Huynh Hemoglobin (Bld) [Mass/Vol] 10.1 g/dL Critically low 12.0-16.0 [facility] Comment on above: Performed By: #### 4 [id number] #### [facility] [address] [place] [address] Dr. Yariel Huynh IG # 0.07 10e3/ul Critically high 0.00-0.03 [facility] Comment on above: Performed By: #### 4 [id number] #### [facility] [address] [place] [address] Dr. Yariel Huynh IG % 0.7 % Critically high 0.0-0.5 [facility] Comment on above: Performed By: #### 4 [id number] #### [facility] [address] [place] [address] Dr. Yariel Huynh LYMPH # 2.3 103/ul Normal 1.2-3.8 [facility] Comment on above: Performed By: #### 4 [id number] #### [facility] [address] [place] [address] Dr. Yariel Huynh Lymphocytes/100 WBC (Bld) 22.7 % Normal 20.5-60.0 [facility] Comment on above: Performed By: #### 4 [id number] #### [facility] [address] [place] [address] Dr. Yariel Huynh MANUAL DIFF REQ NO Normal [facility] Comment on above: Performed By: #### 4 [id number] #### [facility] [address] [place] [address] Dr. Yariel Huynh MCH (RBC) [Entitic mass] 26.7 pg Normal 26.7-34.0 [facility] Comment on above: Performed By: #### 4 [id number] #### [facility] [address] [place] [address] Dr. Yariel Huynh MCHC (RBC) [Mass/Vol] 31.8 g/dL Normal 29.9-35.2 [facility] Comment on above: Performed By: #### 4 [id number] #### [facility] [address] [place] [address] Dr. Yariel Huynh MCV (RBC) [Entitic vol] 84.1 fL Normal 81.0-99.0 [facility] Comment on above: Performed By: #### 4 [id number] #### [facility] [address] [place] [address] Dr. Yariel Huynh MONO # 0.6 103/ul Normal 0.3-0.8 [facility] Comment on above: Performed By: #### 4 [id number] #### [facility] [address] [place] [address] Dr. Yariel Huynh Monocytes/100 WBC (Bld) 6.3 % Normal 1.7-12.0 [facility] Comment on above: Performed By: #### 4 [id number] #### [facility] [address] [place] [address] Dr. Yariel Huynh NEUT # 7.0 103/ul Critically high 1.4-6.5 [facility] Comment on above: Performed By: #### 4 [id number] #### [facility] [address] [place] [address] Dr. Yariel Huynh Neutrophils/100 WBC (Bld) 69.6 % Normal 43.0-75.0 [facility] Comment on above: Performed By: #### 4 [id number] #### [facility] [address] [place] [address] Dr. Yariel Huynh Platelet mean volume (Bld) [Entitic vol] 12.9 fL Normal 9.5-13.5 [facility] Comment on above: Performed By: #### 4 [id number] #### [facility] [address] [place] [address] Dr. Yariel Huynh PLT 193 103/ul Normal 150-450 [facility] Comment on above: Performed By: #### 4 [id number] #### [facility] [address] [place] [address] Dr. Yariel Huynh RBC 3.78 106/ul Critically low 4.20-5.40 [facility] Comment on above: Performed By: #### 4 [id number] #### [facility] [address] [place] [address] Dr. Yariel Huynh WBC 10.1 103/ul Normal 4.0-11.0 [facility] Comment on above: Performed By: #### 4 [id number] #### [facility] [address] [place] [address] Dr. Yariel Huynh CREATININEon 12-08-2020 Creatinine [Mass/Vol] 0.80 mg/dL Normal 0.52-1.04 [facility] Comment on above: Performed By: #### L DH, URIC, AST, ALT, BUN, CREA #### [facility] [address] [place] [address] Clyde Delgadilloen EGFR-AF KOSOVAN >60 Normal >=60 [facility] Comment on above: Performed By: #### L DH, URIC, AST, ALT, BUN, CREA #### [facility] [address] [place] [address] Clyde Madie EGFR-NON AF KOSOVAN >60 Normal >=60 [facility] Comment on above: Performed By: #### L DH, URIC, AST, ALT, BUN, CREA #### [facility] [address] [place] [address] Clyde Ramachandran DRUG SCREEN RAPID (URINE)on 12-08-2020 AMP Negative Normal NEGATIVE [facility] Comment on above: Performed By: #### 4 [id number] #### [facility] [address] [place] [address] Dr. Yariel Huynh BAR Negative Normal NEGATIVE [facility] Comment on above: Performed By: #### 4 [id number] #### [facility] [address] [place] [address] Dr. Yariel Huynh BUP Negative Normal NEGATIVE [facility] Comment on above: Performed By: #### 4 [id number] #### [facility] [address] [place] [address] Dr. Yariel Huynh BZO Negative Normal NEGATIVE [facility] Comment on above: Performed By: #### 4 [id number] #### [facility] [address] [place] [address] Dr. Yariel Huynh ROSA Negative Normal NEGATIVE [facility] Comment on above: Performed By: #### 4 [id number] #### [facility] [address] [place] [address] Dr. Yariel Huynh CUT-OFFS SEE BELOW Normal [facility] Comment on above: Result Comment: AMP (Amphetamine): 500ng/mL, BAR (Barbituates): 200 ng/mL, BZO (Benzodiazepines): 150 ng/mL, BUP (Buprenorphine): 10 ng/mL, ROSA (Cocaine): 150 ng/mL, mAMP (Methamphetamine): 500 ng/mL, MTD (Methadone): 200 ng/mL, OPI (Opiates): 100 ng/mL, OXY (Oxycodone): 100 ng/mL, PCP (Phencyclidine): 25 ng/mL, PPX (Propoxyphene): 300 ng/mL, THC (Cannabinoids): 50 ng/mL, TCA (Trycyclic Antidepressants): 300 ng/mL Performed By: #### 4 [id number] #### [facility] [address] [place] [address] Dr. Yariel Huynh DRUG CUT HEADER DRUG CLASS TEST SYSTEM CUT-OFF CONCENTRATIONS ARE FOLLOWS: Normal [facility] Comment on above: Performed By: #### 4 [id number] #### [facility] [address] [place] [address] Dr. Yariel Huynh mAMP Negative Normal NEGATIVE [facility] Comment on above: Performed By: #### 4 [id number] #### [facility] [address] [place] [address] Dr. Yariel Huynh MTD Negative Normal NEGATIVE [facility] Comment on above: Performed By: #### 4 [id number] #### [facility] [address] [place] [address] Dr. Yariel Huynh OPI Negative Normal NEGATIVE [facility] Comment on above: Performed By: #### [id number] #### [facility] [address] [place] [address] Dr. Yariel Huynh OXY Negative Normal NEGATIVE [facility] Comment on above: Performed By: #### [id number] #### [facility] [address] [place] [address] Dr. Yariel Huynh PCP Negative Normal NEGATIVE [facility] Comment on above: Performed By: #### [id number] #### [facility] [address] [place] [address] Dr. Yariel Huynh PPX Negative Normal NEGATIVE [facility] Comment on above: Performed By: #### [id number] #### [facility] [address] [place] [address] Dr. Yariel Huynh TCA Negative Normal NEGATIVE [facility] Comment on above: Performed By: #### [id number] #### [facility] [address] [place] [address] Dr. Yariel Huynh THC Negative Normal NEGATIVE [facility] Comment on above: Performed By: #### [id number] #### [facility] [address] [place] [address] Dr. Yariel Huynh LDHon 12-08-2020 LDH 163 U/L Normal 122-222 [facility] Comment on above: Performed By: #### L DH, URIC, AST, ALT, BUN, CREA #### [facility] [address] [place] [address] Clyde Ramachandran SGOTon 12-08-2020 AST [Catalytic activity/Vol] 15 U/L Normal 14-36 [facility] Comment on above: Performed By: #### L DH, URIC, AST, ALT, BUN, CREA #### [facility] [address] [place] [address] Clyde Ramachandran SGPTon 12-08-2020 ALT [Catalytic activity/Vol] 12 U/L Normal 9-52 [facility] Comment on above: Performed By: #### L DH, URIC, AST, ALT, BUN, CREA #### [facility] [address] [place] [address] Clyde Ramachandran TYPE AND SCREENon 12-08-2020 TYPE AND SCREEN Negative Normal [facility] Comment on above: Performed By: #### T NS #### [facility] [address] [place] [address] Clyde Ramachandran URIC ACID SERUMon 12-08-2020 Urate [Mass/Vol] 5.0 mg/dL Normal 2.5-6.[address] [facility] Comment on above: Performed By: #### L DH, URIC, AST, ALT, BUN, CREA #### [facility] [address] [address] Clyde Ramachandran US PREG BIOPHY W NON [...] by: POLLO PABLO Date: 2020-12-08 08:45 Normal [facility] US PREG BIOPHY W NON STRESSo [...] by: SCOTT CORTES Date: 2020-12-01 10:52 Normal [facility] Vital Signs Date Time Vital Sign Value Performing Clinician Roxann torres 07-08-2024 09:52-0500 Body weight 67.31 kg Sammie Neftaly DO Work Phone: [facility] Healthcare 07-08-2024 09:52-0500 Diastolic blood pressure 70 mm[Hg] [...] Systolic blood pressure 122 mm[Hg] Noms Nurse [facility] Healthcare Encounters Encounter Date Encounter Type Care Provider Facility Start: 07-27-2024 End: 07-27-2024 Clinisync Result Encounter Sammie Neftaly DO Work Phone: [facility] External Department Unsolicited Start: 07-27-2024 End: 07-27-2024 Clinisync Result Encounter Sammie Neftaly DO Work Phone: [facility] External Department Unsolicited Start: 07-08-2024 End: 07-08-2024 Bamboo flowsheet Sammie Neftaly DO Work Phone: [facility] BCP OB Start: 07-08-2024 End: 07-08-2024 Bamboo flowsheet Sammie Neftaly DO Work Phone: [facility] OB Start: 07-08-2024 End: 07-08-2024 Office outpatient visit 15 minutes Sammie Neftaly DO Work Phone: [facility] Comment on above: Second trimester pre gnancy; 14 weeks gestation of ; Diabetes mellitus screening; History of miscarriage Start: 07-08-2024 End: 07-08-2024 ambulatory SAMMIE NEFTALY Not Available Start: 07-01-2024 End: 07-01-2024 Clinisync Result Encounter Sammie Neftaly DO Work Phone: [facility] External Department Unsolicited Start: 07-01-2024 End: 07-01-2024 [...] 11-27-2020 End: 11-27-2020 ambulatory NONE LISTED REQUEST Facility:H1 Procedures Date Procedure Procedure Detail Performing Clinician Start: 07-27-2024 GLUCOSE 1 HOUR Sammie Fa zio DO Work Phone: Start: 07-01-2024 ALL CBC WITH AUTO DIFF Sammie Neftaly DO Work Phone: Start: 06-07-2024 Urnls dip [...] ant neoplasm of cervix [facility] Start: 08-05-2024 End: 08-05-2024 Patient encounter procedure 08/05/2024 9:30 AM EST Routine [facility] [address] [place] [address] Diya Villanueva PA [address] [place] [address] [facility] Start: 07-08-2024 End: 07-08-2025 Measurement of glucose 1 hour after glucose challenge for glucose tolerance test Glucose tolerance, 1 hour Lab Routine Diabetes mellitus screening Expected: 07/08/2024 (Approximate), Expires: 07/08/2025 [facility] Work Phone: Comment on above: Expected: 07/08/2024 (Approximate), Expires: 07/08/2025 Start: 07-08-2024 End: 07-08-2024 Patient encounter procedure [facility] Comment on above: Arrived Start: 06-07-2024 End: 06-07-2025 ABO/Rh ABO/Rh Lab Routine Missed menses , unspecified gestational age Expected: 06/07/2024 (Approximate), Expires: 06/07/2025 [facility] Comment on above: Expected: 06/07/2024 (Approximate), Expires: [...] first trimester Expected: 06/07/2024 (Approximate), Expires: 06/07/2025 [facility] Comment on above: Expected: 06/07/2024 (Approximate), Expires: 06/07/2025 Start: 04-19-2024 End: 04-19-2024 ambulatory 04/19/2024 10:00 AM EST Initial [facility] [address] [place] [address] [place] [address] [facility] Start: 04-19-2024 End: 04-19-2024 Professional / ancillary services management 04/19/2024 9:30 AM EST Ancillary Procedure [facility] [address] [place] [address] [facility] Start: 02-04-2024 Influenza vaccination Influenza Vacc ine (#1) [facility] Start: 2013 Screening for malign ant neoplasm of cervix Pap Smear [facility] Bacteria identified in Urine by Culture Urine culture Microbiology Routine Missed menses Ordered: 06/07/2024 [facility] Comment on above: Ordered: 06/07/2024 CBC W Auto Different ial panel - Blood CBC and differential Lab Routine Missed menses , unspecified gestational age Ordered: 06/07/2024 [facility] Comment on above: Ordered: 06/07/2024 Hemoglobin A1c/Hemoglobin.total in Blood Hemoglobin A1c Lab Routine Missed menses , unspecified gestational age Ordered: 06/07/2024 [facility] Comment on above: Ordered: 06/07/2024 Hepatitis B virus surface Ag [Presence] in Serum or Plasma by Immunoassay Hepatitis B surface antigen Lab Routine Missed menses , unspecified gestational age Ordered: 06/07/2024 [facility] Comment on above: Ordered: 06/07/2024 Hepatitis C virus Ab [Presence] in Serum or Plasma by Immunoassay Hepatitis C antibody Lab Routine Missed menses , unspecified gestational age Ordered: 06/07/2024 [facility] Comment on above: Ordered: 06/07/2024 HIV-1/HIV-2 antigen/antibody combination immunoassay HIV-1 and HIV-2 antibodies Lab Routine Missed menses , unspecified gestational age Ordered: 06/07/2024 [facility] Comment on above: Ordered: 06/07/2024 Reagin Ab [Presence] in Serum by RPR RPR Lab Routine Missed menses , unspecified gestational age Ordered: 06/07/2024 [facility] Comment on above: Ordered: 06/07/2024 Rubella antibody, IgG Rubella an tibody, IgG Lab Routine Missed menses , unspecified gestational age Ordered: 06/07/2024 [facility] Comment on above: Ordered: 06/07/2024 Immunizations Immunization Date Immunization Notes Care Provider Khai lopez 05-09-2019 influenza virus vacc ine, unspecified formulation Sammie Higginbotham DO Work Phone: [facility] Payers Date Payer Category Payer Private Health Insurance [facility] MEDICAID [id number] 2017 Medicaid [id number] 1992 Unknown [id number] [id number]. 593 1992 Unknown [id number] [id number]. 593 1992 Unknown [id number] 2.16.840.1.874075.3.579.2. 593 1992 Unknown [id number] 2.16.840.1.037101.3.579.2. 593 1992 Unknown [id number] 2.16.840.1.467603.3.579.2. 593 1992 Unknown [id number] 2.16.840.1.955758.3.579.2. 593 1992 Unknown [id number] 2.16.840.1.048177.3.579.2. 593 1992 Unknown [id number] 2.16.840.1.457629.3.579.2. 593 1992 Unknown [id number] 2.16.840.1.732569.3.579.2. 593 1992 Unknown [id number] 2.16.840.1.860824.3.579.2. 1259 1992 Unknown [id number] 2.16.840.1.422867.3.579.2. 1259 1992 Unknown [id number] [id number]. 1259 1959 Self-pay [id number] 1957 Unknown [id number] Social History Date Type Detail Facility Tobacco smoking stat [facility] Tobacco smoking consumption unknown [facility] [...] or undercooked meat, and stay away from [facility]. Patient has also been advised to [...] 11/24/2021 [facility] DATE CREATED AUTHOR AUTHOR'S ORGANIZ ATION 07/09/2024 [facility] EPIC Care Teams (unrecognized sec tion and content) Bouffant Curtain Machine Tender Relationship Specialty Start Date End Date Sammie Higginbotham DO [address] [place] [address] PCP [facility] 09/04/23 [employer] Curt[employer] Machine Tender Relationship Specialty Start Date End Date Samm[place] [address] PCP - [facility] 09/04/23 [employer] Curt[employer] Machine Tender Relationship Specialty Start Date End Date Samm[place] [address] PCP [facility] 09/04/23 [employer] Curt[employer] Machine Tender Relationship Specialty Start Date End Date [place]amm[place] [address] PCP - [facility] 09/04/23 Reason for Visit (unrecogniz ed section [...] BE BASED ON THE PRIMARY CLINICAL RECORDS. [facility] [employer] provides no warranty or guarantee of the accuracy or completeness of information in this document.
[2024-08-03 08:44] LABS: Glucose Fasting 94 mg/dL (<95)
[2024-08-03 09:46] LABS: Glucose 1 Hour 163 mg/dL (<180)
[2024-08-03 10:36] LABS: Glucose 2 Hour 114 mg/dL (<155)
[2024-08-03 11:31] LABS: Glucose 3 Hour 109 mg/dL (<140)
== END 2024-08-03 07:49 | disposition home or self-care (01) ==
LOC: LAB 07:48
PROVIDERS: Visit Provider Obstetrics & Gynecology
DX: R73.09 Other abnormal glucose (principal)
CPT/HCPCS: 36415; 82951; 82952

== ENCOUNTER 2024-08-05 14:54 | Outpatient (OUT) | payer OTHER, SELFPAY ==
[2024-08-08 10:15] LABS: Age Gdln ACOG Testing Note (.); HPV Aptima Negative (Negative); IGP, Aptima HPV, rfx 16/18,45 Note (.)
== END 2024-08-05 14:55 | disposition home or self-care (01) ==
LOC: LAB 14:56
PROVIDERS: Visit Provider Physician Assistant
DX: Z01.419 Encounter for gynecological examination (general) (routine) without abnormal findings (principal)
CPT/HCPCS: 87624; 88175

== ENCOUNTER 2024-11-12 13:30 | Observation (INO) | payer OTHER, SELFPAY ==
--- OUTSIDE RECORDS SUMMARY | 2024-10-30 10:00 | XMS_ITS | Encounter Summary ---
Author Organization [facility] Address [address] [place] [address] Care Team Providers Care Air Conditioning Manager Name Role Phone Michael Higginbotham DO Unavailable Encounter Details Date Type Department Care Team (Latest Contact Info) Description 10/30/2024 10:00 AM EDT Ancillary Procedure [facility] [address] [place] [address] H/O pre-eclampsia in prior , currently Social History Tobacco Use Types Packs/Day Years Used Date Smoking Tobacco: Never Assessed Estimated Date of Delivery Comme nts Yes 01/06/2025 Based on last me nstrual period of 04/01/2024 Sex and Gender Information Value Date Recorded Sex Assigned at Not on file Legal Sex Female 11:47 PM EDT Gender Identity Not on file Sexual Orientation Not on file documented as of this encounter Plan of Treatment Upcoming Encounters Date Type Department Care Team (Late st Contact Info) Description 11/13/2024 10:30 AM EDT Routine [facility] [address] [place] [address] Diya Villanueva PA [address] [place], [place] [id number] documented as of this encounter Procedures Procedure Name Priority Date/Time Associated Diagnosis Comments US OB FOLLOW UP TRANSABDOMINAL APPROACH Routine 10/30/2024 10:16 AM EDT H/O pre-eclampsia in prior , currently documented in this encounter Results * US OB follow up transabdominal approach (10/30/2024 10:16 AM EDT) Anatomical Region Laterality Modality Body Ultrasound 10/30/2024 11:2 0 PM EDT Narrative 10/30/2024 11:20 PM EDT EXAM: US OB FOLLOW UP TRANSABDOMINAL APPROACH HISTORY: History of preeclampsia with last 2 pregnancies. COMPARISON: Ob ultrasound 08/21/2024. TECHNIQUE: Two-dimensional transabdominal grayscale ultrasound imaging of the pelvis was performed. FINDINGS: Gestation: Single Presentation: Cephalic Cardiac Activity: 153 beats per minute Placental Location: Posterior with no sonographic abnormalities identified. Amniotic Fluid Index: 14.5 cm MEASUREMENTS: BPD: 8.1 cm EGA: 32 weeks 4 days HC: 29.4 cm EGA: 32 weeks 3 days AC: 27.0 cm EGA: 31 weeks 1 days FL: 5.9 cm EGA: 30 weeks 5 days HC/AC Ratio: 1.09 The gestational age by today's ultrasound is 31 weeks 5 days (+/- 16 days gestation). Estimated Weight: 1730 grams, +/- 260 grams ( 3 lb 13 oz). Weight Percentile for gestational age: 72 % IMPRESSION: 1. Single, live intrauterine gestation 30 weeks, 2 days by LMP. Today's ultrasound measurements correlate with a gestational age of 31 weeks 5 days. Estimated weight is 1730 grams, +/- 260 grams ( 3 lb 13 oz) which correlates to 72 %. KLAUS is 12/27/2024. Interpreted by: Electronically signed by AMY STEELE II, MD, PHD at 30-Oct-2024 11:19:03 PM [facility] Procedure Note Amy Steele MD - 10/30/2024 EXAM: US OB FOLLOW UP TRANSABDOMINAL APPROACH HISTORY: History of preeclampsia with last 2 pregnancies. COMPARISON: Ob ultrasound 08/21/2024. TECHNIQUE: Two-dimensional transabdominal grayscale ultrasound imaging ofthe pelvis was performed. FINDINGS: Gestation: Single Presentation: Cephalic Cardiac Activity: 153 beats per minute Placental Location: Posterior with no sonographic abnormalitiesidentified. Amniotic Fluid Index: 14.5 cm MEASUREMENTS: BPD: 8.1 cm EGA: 32 weeks 4 days HC: 29.4 cm EGA: 32 weeks 3 days AC: 27.0 cm EGA: 31 weeks 1 days FL: 5.9 cm EGA: 30 weeks 5 days HC/AC Ratio: 1.09 The gestational age by today's ultrasound is 31 weeks 5 days (+/- 16 daysgestation). Estimated Weight: 1730 grams, +/- 260 grams ( 3 lb 13 oz). Weight Percentile for gestational age: 72 % IMPRESSION: 1. Single, live intrauterine gestation 30 weeks, 2 days by LMP. Today'sultrasound measurements correlate with a gestational age of 31 weeks 5days. Estimated weight is 1730 grams, +/- 260 grams ( 3 lb 13 oz)which correlates to 72 %. KLAUS is 12/27/2024. Interpreted by: Electronically signed by AMY STEELE II, MD, PHD 11:19:03 PM [facility] us Lin Sellers SENIOR PREMIUM AUDITOR IMG OB US PROCEDURES Final Re sult documented in this encounter Visit Diagnoses Diagnosis H/O pre-eclampsia in prior , currently documented in this encounter Care Teams Air Conditioning Manager Relationship Specialty Start Date End Date Michael Higginbotham DO [address] [place] [address] [place] [address] PCP - [facility] 09/04/23 documented as of this encounter
--- OUTSIDE RECORDS SUMMARY | 2024-10-30 10:50 | XMS_ITS | Encounter Summary ---
Author Organization [facility] Address [address] [place] [address] Care Team Providers Care Cigarette Catcher Name Role Phone Emmy Higginbothamy DO Unavailable Encounter Details Date Type Department Care Team (Late st Contact Info) Description 10/30/2024 10:50 AM EDT Routine [facility] [address] [place] [address] Neftaly DO Michael [address] [place], [place] [id number] 30 weeks gestation of ; Third trimester ; H/O pre-eclampsia in prior , currently ; Gestational diabetes mellitus (GDM), antepartum, gestational diabetes method of control unspecified Social History Tobacco Use Types Packs/Day Years Used Date Smoking Tobacco: Never Assessed Estimated Date of Delivery Comme nts Yes 01/06/2025 Based on last me nstrual period of 04/01/2024 Sex and Gender Information Value Date Recorded Sex Assigned at Not on file Legal Sex Female 11:47 PM EDT Gender Identity Not on file Sexual Orientation Not on file documented as of this encounter Last Filed Vital Signs Vital Sign Reading Time Taken Comments Blood Pressure 120/78 10/30/2024 10:31 AM EDT Pulse - - Temperature - - Respiratory Rate - - Oxygen Saturation - - Inhaled Oxygen Concentration - - Weight 78.5 kg (173 lb 1.9 oz) 10/30/2024 10:31 AM EDT Height - - Body Mass Index - - documented in this encounter Progress Notes * Madie Maldonado LPN - 10/30/2024 10:50 AM EDT Reason for Appointment: Patient ID: Ber Martel is a 34 y.o. female who presents for No chief complaint on file. Patient presents today for Return OB appointment. MEDICATIONS Current Outpatient Medications Medication Instructions Alcohol Swabs (Alcohol Prep Pad) 70 % pads 1 Pad, Topical, Daily, Use four times daily to check FSBS. Blood Glucose Monitoring Suppl (LifeBlinx Glucometer) w/Device kit 1 kit, Does not apply, Daily, Use four times daily to check FSBS. In the morning prior to breakfast & 1 hour after each meal for a total of 4times daily. Glucose Blood (Blood Glucose Test) strip 1 strip, In Vitro, Daily, Use in the morning prior to breakfast, 1 hour after each meal for a total of 4times daily. Lancets Ultra Thin misc 1 each, In Vitro, Daily, Use to check FSBS four times daily Progesterone Micronized (progesterone, bulk,) powder ALLERGIES No Known Allergies PROBLEMS Active Ambulatory [...] Exam Constitutional: Appearance: Normal appearance. She is well-developed. Cardiovascular: Rate and Rhythm: Normal rate and regular rhythm. Pulmonary: Effort: Pulmonary effort is normal. Breath sounds: Normal breath sounds. Abdominal: General: Bowel sounds are normal. There is no distension. Palpations: Abdomen is soft. Tenderness: There is no abdominal tenderness. There is no guarding or rebound. Musculoskeletal: General: No swelling. Normal range of motion. Right lower leg: No edema. Left lower leg: No edema. Neurological: Mental Status: She is alert and oriented to person, place, and time. Skin: General: Skin is warm and dry. Psychiatric: Mood and Affect: Mood normal. Behavior: Behavior normal. Vitals and nursing note reviewed. Exam conducted with a loom inspector present. Vitals: There is no height or weight on file to calculate BMI. BP: 120/78 Patient's last menstrual period was 04/01/2024. ASSESSMENT & PLAN ICD-10-CM 1. 30 weeks gestation of Z3A.30 POCT urinalysis dipstick manually resulted US biophysical profile w non stress test 2. Third trimester Z34.93 POCT urinalysis dipstick manually resulted US biophysical profile w non stress test 3. H/O pre-eclampsia in prior , currently O09.299 US biophysical profile w non stress test 4. Gestational diabetes mellitus (GDM), antepartum, gestational diabetes method of control unspecified O24.419 US biophysical profile w non stress test Return OB: Patient presents today for a routine obstetrics appointment. Patient is currently 30w2d . Patient states she is doing well but has complaints of being tired due to current . Patient has verbalizes frequent movement. labor precautions was discussed/given and patient was instructed to perform kick counts three times a day. Pt stated glucose check have been wnl. Orders Placed This Encounter Procedures US biophysical profile w non stress test POCT urinalysis dipstick manually resulted Follow Up: Patient is to return to office in 2 week for routine OB appointment. Documented by Madie Maldonado LPN on behalf of: Michael Higginbotham DO documented in this encounter Plan of Treatment Upcoming Encounters Date Type Department Care Team (Late st Contact Info) Description 11/13/2024 10:30 AM EDT Routine [facility] [address] [place] [address] Diya Villanueva PA [address] [place] [address] Scheduled Orders Name Type Priority Associated Diagnoses Orde r Schedule US biophysical profile w non stress test Imaging Routine 30 weeks gestation of Third trimester H/O pre-eclampsia in prior , currently Gestational diabetes mellitus (GDM), antepartum, gestational diabetes method of control unspecified Expected: 10/30/2024 (Approximate), Expires: 05/02/2025 documented as of this encounter Procedures Procedure Name Priority Date/Time Associated Diagnosis Comments POCT URINALYSIS DIPSTICK Routine 10/30/2024 10:35 AM EDT 30 weeks gestation of Third trimester documented in this encounter Results * (ABNORMAL) POCT urinalysis dipstick manually resulted (10/30/2024 10:35 AM EDT) Color, UA Yellow Clarity, UA Clear Glucose, UA Negative Negative - 2000(110) ++++ mg/dL Bilirubin, UA Negative Negative - 4(70) +++ mg/dL Ketones, UA Negative Negative - 160(16) ++++ mg/dL Spec Grav, UA 1.010 1 - 1.03 Blood, UA Negative Negative - 50 Dario/mcL pH, UA 7.0 5 - 9 Protein, UA Negative Negative - 2000(20) ++++ mg/dL Urobilinogen, UA 0.2 0.2 - 12 mg/dL Leukocytes, UA Positive Negative - 500+++ Oksana/mcL Comment:small Nitrite, UA Negative Negative - Positive Urine 10/30/2024 10:3 5 AM EDT Michael Higginbotham DO POINT OF CARE TEST ENTER/EDIT OR DERABLES Final Result documented in this encounter Visit Diagnoses Diagnosis 30 weeks gestation of Third trimester state, incidental H/O pre-eclampsia in prior , currently Gestational diabetes mellitus (GDM), antepartum, gestational diabetes method of control unspecified documented in this encounter Care Teams Cigarette Catcher Relationship Specialty Start Date End Date Michael Higginbotham DO [address] [place] [address] [place] [address] [address] - [facility] 09/04/23 documented as of this encounter
--- OUTSIDE RECORDS SUMMARY | 2024-11-12 11:15 | XMS_ITS | Encounter Summary ---
Author Organization [facility] Address [address] [facility] [place] [address] Care Team Providers Care Data Warehouse Manager Name Role Phone Michael Higginbotham DO Unavailable Encounter Details Date Type Department Care Team (Late st Contact Info) Description 09/05/[address] [facility] [address] [place] [address] Michael Higginbotham DO [address], [facility] Social History Tobacco Use Types Packs/Day Years [...] Description 11/13/2024 10:30 AM EDT [facility] [address] [place] [address] Diya Villanueva PA [address] [place], [facility] documented as of this encounter Visit Diagnoses Not on filedocumented in this encounter Care Teams Data Warehouse Manager Relationship Specialty Start Date End Date Michael Higginbotham DO [facility] [place] [address] PCP - [facility] 09/04/23 documented as of this encounter
--- OUTSIDE RECORDS SUMMARY | 2024-11-12 11:15 | XMS_ITS | Clinical Summary ---
Author Organization [facility] tem Address [id number] [address] [place] [address] Care Team Providers Care Director Of Acquisition Marketing Name Role Phone No Pcp, No Pcp Primary Care Provider Unavailabl e Allergies No known active allergies Medications VIT CALC,IRON,FOLIC ( VITAMIN ORAL) Take 1 tablet by mouth once daily. Active citalopram (CeleXA) 20 mg tablet Take 20 mg by mouth daily. Active progesterone (ENDOMETRIN) 100 mg vaginal insert Insert 200 mg into the vagina daily. Active ondansetron (ZOFRAN) 4 mg tablet Take 4 mg by mouth every 8 (eight) hours as needed for nausea or vomiting. Active aspirin 81 mg Take 81 mg by mouth daily. Active folic acid (FOLVITE) 1 mg tablet Take 1 mg by mouth daily. Active Active Problems Problem Noted Date Diagnosed Date Intrauterine 12/17/2016 Hypertension in , pre-eclampsia, severe 12/17/2016 Immunizations No known immunizations Family History Medical History Relation Name Comments Suicide Attempts Maternal Grandfather Cancer Mother Cancer Paternal Grandfather Breast cancer Paternal Grandmother Cancer Paternal Grandmother Hypertension Paternal Grandmother Asthma Sister Relation Name Status Comments Brother Alive Father Alive Maternal Grandfather Mother Alive Paternal Grandfather Paternal Grandmother Alive Sister Alive Social History Tobacco Use Types Packs/Day Years Used Date Smoking Tobacco: Never Assessed Childcare Answer Date Recorded Childcare Unknown 11/14/2018 Employment Answer Date Recorded Employment Unknown 11/14/2018 Purpose - Life Answer Date Recorded Purpose and direction in life Unknown Comments No Sex and Gender Information Value Date Recorded Sex Assigned at Not on file Legal Sex Female 11:46 AM EDT Gender Identity Not on file Sexual Orientation Not on file Last Filed Vital Signs Vital Sign Reading Time Taken Comments Blood Pressure 124/76 06/29/2020 9:39 AM EST Pulse 78 12/27/2016 10:00 AM EDT Temperature 36.6 C (97.8 F) 12/30/2016 12:00 PM EDT Respiratory Rate 18 12/30/2016 12:00 PM EDT Oxygen Saturation 99% 12/21/2016 7:37 AM EDT Inhaled Oxygen Concentration - - Weight 68 kg (150 lb) 06/29/2020 9:39 AM EST Height 157.5 cm (5' 2 ) 06/29/2020 9:39 AM EST Body Mass Index 27.44 06/29/2020 9:39 AM EST Plan of Treatment Health Maintenance Due Date Last Done Comments DTaP,Tdap and Td Vaccines (5 - Tdap) 2003 08/02/1993, 1992, 1992, Additional history exists Depression Screening 2004 Tobacco Screening 2004 Adult BMI Screening 2010 Pap Smear 2013 Influenza Vaccine 02/03/2025 05/09/2019 Medical Devices Not on file Insurance [employer] Care Teams Director Of Acquisition Marketing Relationship Specialty Start Date End Date No Pcp, [place] [id number] PCP - General Family Medicine 02/26/20
--- OUTSIDE RECORDS SUMMARY | 2024-11-12 11:15 | XMS_ITS | Encounter Summary ---
Author Organization [facility] Address [address] [place] [address] Care Team Providers Care Chief Petroleum Engineer Name Role Phone Michael Higginbotham DO Unavailable Encounter Details Date Type Department Care Team (Late st Contact Info) Description 02/25/2023 Abstract [facility] [address] [place] [address] Michael Higginbotham DO [address], [facility]11 Social History Tobacco Use Types Packs/Day Years Used Date Smoking Tobacco: Never Assessed Comments Unknown Sex and Gender Information Value Date Recorded Sex Assigned at Not on file Legal Sex Female 11:47 PM EDT Gender Identity Not on file Sexual Orientation Not on file documented as of this encounter Plan of Treatment Upcoming Encounters Date Type Department Care Team (Late st Contact Info) Description 11/13/2024 10:30 AM EDT Routine [facility] [address] [facility] [place] [address] Diya Villanueva PA [address] [facility] [address] [place], [facility]11 documented as of this encounter Visit Diagnoses Not on filedocumented in this encounter Care Teams Chief Petroleum Engineer Relationship Specialty Start Date End Date Michael Higginbotham DO [facility] [address], [facility]11 PCP - [facility] 09/04/23 documented as of this encounter
--- OUTSIDE RECORDS SUMMARY | 2024-11-12 11:15 | XMS_ITS | Clinical Summary ---
Author Organization [facility] Address [address] [place] [address] Care Team Providers Care Motor Route Carrier Name Role Phone Michael Higginbotham DO Unavailable Allergies No known active allergies Medications Progesterone Micronized (progesterone, bulk,) powder 5 Active Alcohol Swabs (Alcohol Prep Pad) 70 % padsIndications :Elevated glucose tolerance test Apply 1 Pad topically Daily Use four times daily to check FSBS. 150 each 3 5 Active Blood Glucose Monitoring Suppl (D-Care Glucometer) w/Device kitIndications: Elevated glucose tolerance test 1 kit Daily Use four times daily to check FSBS. In the morning prior to breakfast & 1 hour after each meal for a total of 4times daily. 1 kit 5 10/02/19 26 Active Lancets Ultra Thin miscIndications :Elevated glucose tolerance test 1 each by In Vitro route Daily Use to check FSBS four times daily 150 each 3 5 11/01/19 25 Glucose Blood (Blood Glucose Test) stripIndication s:Elevated glucose tolerance test 1 strip by In Vitro route Daily Use in the morning prior to breakfast, 1 hour after each meal for a total of 4times daily. 150 strip 3 5 11/01/19 25 Encounters Date Type Department Care Team Description 10/30/2024 10:50 AM EDT Routine [facility] [address] [place] [address] [place] [address] Michael Higginbotham DO 30 weeks gestation of ; Third trimester ; H/O pre-eclampsia in prior , currently ; Gestational diabetes mellitus (GDM), antepartum, gestational diabetes method of control unspecified 10/30/2024 10:00 AM EDT Ancillary Procedure [facility] [address] [facility] [place] [phone] H/O pre-eclampsia in prior , currently 10/14/2024 Telephone [facility] OB [address] [place] [address] [place] [address] Paola Centeno MA 10/07/2024 Abstract [facility] OB [address] [place] [address] [place] [address] Michael Higginbotham, 10/01/2024 9:30 AM EDT Routine [facility] OB [address] [place] [address] [place] [address] Lin Sellers, ESTEBAN Second trimester ; size inconsistent with dates; H/O pre-eclampsia in prior , currently ; Gestational diabetes mellitus (GDM), antepartum, gestational diabetes method of control unspecified; Elevated glucose tolerance test 10/01/2024 Abstract [facility] OB [address] [place] [address] [place] [address] Michael Higginbotham, DO 10/01/2024 Bamboo flowsheet [facility] [address] [place] [address] Lin Sellers, ESTEBAN 09/05/2024 Abstract [facility] OB [address] [place] [address] [place] [address] Michael Higginbotham, 09/02/2024 9:50 AM EDT Routine [facility] OB [address] [place] [address] [place] [address] Michael Higginbotham, Second trimester ; 22 weeks gestation of ; Diabetes mellitus screening 09/02/2024 Bamboo flowsheet [facility] OB [address] [place] [address] [place] [address] Michael Higginbotham, 08/21/2024 9:00 AM EDT Ancillary Procedure [facility] OB [address] [place] [address] [place] [phone] Screening, , for anatomic survey 08/19/2024 Orders Only [facility] [address] [facility] [place] [phone] Isabel Keating MA from Last 3 Months Social History Tobacco Use Types Packs/Day Years [...] - - Body Mass Index - - Plan of Treatment Upcoming Encounters Date Type Department Care Team (Late st Contact Info) Description 11/13/2024 10:30 AM EDT Routine [facility] [address] [facility] [place] [address] Diya Villanueva PA [address] [facility] [address] [place], [place] [id number] Health Maintenance Due Date Last Done Comments Influenza Vaccine (Season Ended) 2025 05/09/20 19 Cervical Cancer Screening 08/05/2029 HPV/Cotest 08/05/2029 03/15/2023 Pap Smear 08/05/2029 08/05/2024 Procedures Procedure Name Priority Date/Time Associated Diagnosis Comments POCT URINALYSIS DIPSTICK Routine 10/30/2024 10:35 AM EDT 30 weeks gestation of Third trimester US OB FOLLOW UP TRANSABDOMINAL APPROACH Routine 10/30/2024 10:16 AM EDT H/O pre-eclampsia in prior , currently POCT URINALYSIS DIPSTICK Routine 09/02/2024 9:53 AM EDT Second trimester US OB 14+ WEEKS ANATOMY SCAN Routine 08/21/2024 9:42 AM EDT Screening, , for anatomic survey PAP SMEAR Routine 08/05/2024 12:00 AM EST THINPREP PAP AND HPV MRNA E6/E7 W/RFL HPV 16,18/45 Routine 03/15/2023 12:16 PM EDT Well woman exam with routine gynecological exam from Last 3 Months or Most Recently Relevant to Health Maintenance Results * (ABNORMAL) POCT urinalysis dipstick manually resulted (10/30/2024 10:35 AM EDT) Only the most recent of2 resultswithin the time period is included. Color, UA Yellow Clarity, UA Clear Glucose, [...] Positive Urine 10/30/2024 10:3 5 AM EDT us Michael Neftaly DO POINT OF CARE TEST ENTER/EDIT OR DERABLES Final Result * US OB follow up transabdominal approach [...] II, MD, PHD at 30-Oct-2024 11:19:03 PM [facility] Procedure Note Amy Steele MD - [...] AMY STEELE II, MD, PHD 11:19:03 PM [facility] us Lin Sellers NP IMG OB US PROCEDURES Final Re sult * US OB 14+ weeks anatomy scan (08/21/2024 9:42 AM EDT) Anatomical Region Laterality Modality Body Ultrasound 08/22/2024 8:47 AM EDT Narrative 08/22/2024 8:47 AM EDT EXAM: US OB 14+ WEEKS ANATOMY SCAN HISTORY: anatomy. COMPARISON: Ob ultrasound 06/07/2024. TECHNIQUE: Two-dimensional transabdominal grayscale ultrasound imaging of the pelvis was performed. FINDINGS: Gestation: Single Presentation: Cephalic Cardiac Activity: 147 beats per minute Placental Location: Posterior with no sonographic abnormalities identified. Distance from Placental Tip to Cervix: 5 cm Cervical Length: 4.4 cm Amniotic Fluid: Appears adequate MEASUREMENTS: BPD: 5.0 cm EGA: 21 weeks 2 days HC: 18.0 cm EGA: 20 weeks 3 days AC: 15.1 cm EGA: 20 weeks 2 days FL: 3.4 cm EGA: 20 weeks 4 days HC/AC Ratio: 1.19 The gestational age by today's ultrasound is 20 weeks 5 days (+/- 10 days gestation). Estimated Weight: 354 grams, +/- 53 grams ( 0 lb 12 oz). Weight Percentile for gestational age: 54 % ANATOMY C-Spine: Unremarkable T-Spine: Unremarkable L-Spine: Unremarkable Sacrum: Unremarkable Four Chamber Heart: Unremarkable LVOT: Unremarkable RVOT: Unremarkable Stomach: Unremarkable Kidneys: Unremarkable Bladder: Unremarkable Diaphragm: Unremarkable Cord insertion: Unremarkable Cord vessels: Three Lateral Ventricles: Unremarkable Cerebellum: Unremarkable Cisterna Magna: Unremarkable Posterior Fossa: Unremarkable Right Femur: Unremarkable Left Femur: Unremarkable Right Tib/Fib: Unremarkable Left Tib/Fib: Unremarkable Right Rad/Ulnar: Unremarkable Left Rad/Ulnar: Unremarkable Right Humerus: Unremarkable Left Humerus: Unremarkable Nose/Lips: Unremarkable Orbits: Unremarkable IMPRESSION: 1. Single, live intrauterine gestation 20 weeks, 2 days by LMP. Today's ultrasound measurements correlate with a gestational age of 20 weeks 5 days. Estimated weight is 354 grams, +/- 53 grams ( 0 lb 12 oz) which correlates to 54 %. KLAUS is 01/03/2025. 2. Unremarkable ultrasound of the anatomy. Electronically Signed:Electronically signed by AMY STEELE II, MD, PHD at 22-Aug-2024 08:46:17 AM [facility] Procedure Note Amy Steele MD - 08/22/2024 EXAM: US OB 14+ WEEKS ANATOMY SCAN HISTORY: anatomy. COMPARISON: Ob ultrasound 06/07/2024. TECHNIQUE: Two-dimensional transabdominal grayscale ultrasound imaging ofthe pelvis was performed. FINDINGS: Gestation: Single Presentation: Cephalic Cardiac Activity: 147 beats per minute Placental Location: Posterior with no sonographic abnormalitiesidentified. Distance from Placental Tip to Cervix: 5 cm Cervical Length: 4.4 cm Amniotic Fluid: Appears adequate MEASUREMENTS: BPD: 5.0 cm EGA: 21 weeks 2 days HC: 18.0 cm EGA: 20 weeks 3 days AC: 15.1 cm EGA: 20 weeks 2 days FL: 3.4 cm EGA: 20 weeks 4 days HC/AC Ratio: 1.19 The gestational age by today's ultrasound is 20 weeks 5 days (+/- 10 daysgestation). Estimated Weight: 354 grams, +/- 53 grams ( 0 lb 12 oz). Weight Percentile for gestational age: 54 % ANATOMY C-Spine: Unremarkable T-Spine: Unremarkable L-Spine: Unremarkable Sacrum: Unremarkable Four Chamber Heart: Unremarkable LVOT: Unremarkable RVOT: Unremarkable Stomach: Unremarkable Kidneys: Unremarkable Bladder: Unremarkable Diaphragm: Unremarkable Cord insertion: Unremarkable Cord vessels: Three Lateral Ventricles: Unremarkable Cerebellum: Unremarkable Cisterna Magna: Unremarkable Posterior Fossa: Unremarkable Right Femur: Unremarkable Left Femur: Unremarkable Right Tib/Fib: Unremarkable Left Tib/Fib: Unremarkable Right Rad/Ulnar: Unremarkable Left Rad/Ulnar: Unremarkable Right Humerus: Unremarkable Left Humerus: Unremarkable Nose/Lips: Unremarkable Orbits: Unremarkable IMPRESSION: 1. Single, live intrauterine gestation 20 weeks, 2 days by LMP. Today'sultrasound measurements correlate with a gestational age of 20 weeks 5days. Estimated weight is 354 grams, +/- 53 grams ( 0 lb 12 oz)which correlates to 54 %. KLAUS is 01/03/2025. 2. Unremarkable ultrasound of the anatomy. Electronically Signed:Electronically signed by AMY STEELE II, MD, PHDat 22-Aug-2024 08:46:17 AM [facility] us Diya GEE IMG OB US PROCEDURES Final Resul t * Pap Smear (08/05/2024 12:00 AM EST) Swab Cervical swab / Unknown us Diya GEE LAB CYTOLOGY ORDERABLES Final Re sult Performing Organization Address City/[facility]/ZIP Co de Phone Number EXTERNAL LAB * THINPREP PAP AND HPV MRNA E6/E7 W/RFL HPV 16,18/45 (03/15/2023 12:16 PM EDT) us Michael Higginbotham DO LAB BLOOD ORDERABLES Final Resul t Performing Organization Address [facility]/ZIP Co de Phone Number EXTERNAL LAB from Last 3 Months or Most Recently Relevant to Health Maintenance Insurance [employer] Care Teams Motor Route Carrier Relationship Specialty Start Date End Date Michael Higginbotham DO [address] [place] [address] PCP - [facility] 09/04/23
--- OUTSIDE RECORDS SUMMARY | 2024-11-12 11:15 | XMS_ITS | Encounter Summary ---
Author Organization [facility] Healthcare Address [address] [facility] [place] [address] Care Team Providers Care Rougher For Cement Name Role Phone Michael Higginbotham DO Unavailable Encounter Details Date Type Department Care Team (Late st Contact Info) Description 07/01/2024 Abstract [facility] [address] [place] [address] Michael Higginbotham DO [address], [facility]11 Social History Tobacco Use Types Packs/Day [...] Description 11/13/2024 10:30 AM EDT Routine [facility] [address] [place] [phone] Diya Villanueva PA [address] [place], [facility]11 documented as of this encounter Visit Diagnoses Not on filedocumented in this encounter Care Teams Rougher For Cement Relationship Specialty Start Date End Date Michael Higginbotham DO [facility] [place] [address] PCP - [facility] 09/04/23 documented as of this encounter
--- OUTSIDE RECORDS SUMMARY | 2024-11-12 11:15 | XMS_ITS | Encounter Summary ---
Author Organization [facility] Address [id number] [place] [address] Care Team Providers Care Lens Edger Name Role Phone No Pcp, No Pcp Primary Care Provider Unavailabl e Reason for Referral * Diagnostic Imaging (Routine) - Closed Specialty Diagnoses / Procedures Referred By Contac t Referred To Contact Maternal and Medicine Diagnoses Abnormal chromosomal and genetic finding on screening of mother History of pre-eclampsia Hx of delivery, currently Procedures US [facility] with or without consult Navarro Kee MD Phone: tel: fax: Maternal- Medicine at [place] [address] [place] [address] Phone: tel: fax: Referral ID Status Reason Start Date Expiration Date Visits Re quested Visits Authorized [id number] Closed 08/24/2020 08/24/2021 1 1 Encounter Details Date Type Department Care Team (Late st Contact Info) Description 08/24/2020 Orders Only [facility]- [facility] at [place] [address] [place] [phone] Navarro Kee MD [address] [facility], [address] [place] [id number] Abnormal chromosomal and genetic finding on screening of mother (Primary Dx); History of pre-eclampsia; Hx of delivery, currently Social History Tobacco Use Types Packs/Day Years Used Date Smoking Tobacco: Never Assessed Childcare Answer Date Recorded Childcare Unknown 11/14/2018 Employment Answer Date Recorded Employment Unknown 11/14/2018 Purpose - Life Answer Date Recorded Purpose and direction in life Unknown Comments Yes Sex and Gender Information Value Date Recorded Sex Assigned at Not on file Legal Sex Female 11:46 AM EDT Gender Identity Not on file Sexual Orientation Not on file COVID-19 Exposure Response Date Recorded In the last month, have you been in contact with someone who was confirmed or suspected to have Coronavirus / COVID-19? No / Unsure 08/21/2020 2:03 PM EDT documented as of this encounter Plan of Treatment Not on file documented as of this encounter Results * [facility] OB FOLLOW-UP, 1 FETUS (09/21/2020 10:31 AM EDT) Anatomical Region Laterality Modality Pelvis Ultrasound 09/21/2020 10:0 6 AM EDT Impressions 09/21/2020 11:31 AM EDT IMPRESSION: 1. Single intrauterine with expected interval growth from the previous ultrasound. 2. anatomic survey and heart echo did not reveal sonographic evidence of any gross structural abnormalities. 3. Amniotic fluid volume assessment is normal. Narrative 09/21/2020 11:31 AM EDT OBSTETRICS REPORT (Signed Final 09/21/2020 11:31) PATIENT INFO: ID #: [id number] : [birth year] (30 yrs)(F) Name: JANINA MC Visit Date: 09/21/2020 10:06 HUMMEL PERFORMED BY: Performed By: Margret Hernandez RDMS Attending: Wes Szymanski MD Referred By: Michael Higginbotham DO Ref. Address: [address] [place] [address] [place] [address] Location: [facility] SERVICE(S) PROVIDED: OB Follow-up, 1 fetus [id number] Echocardiogram-complete 68930 INDICATIONS: Screening for follow-up survey Z36.2 History of previous with pre- O09.299 eclampsia Supervision of other high risk , O09.90 antepartum; abn CFDNA low fraction VITAL SIGNS: Weight (lb): 150 Height: 5'2 BMI: 27.43 EVALUATION: Num Of Fetuses: 1 Heart Rate(bpm): 143 Cardiac Activity: Present & appears normal Presentation: Breech Placenta: Right Lateral, away from cervical os Amniotic Fluid JUSTA FV: Subjectively within normal limits JUSTA Sum(cm) %Tile Largest Pocket(cm) 14.18 45 5.1 RUQ(cm) RLQ(cm) LUQ(cm) LLQ(cm) 2.57 5.1 2.78 3.73 BIOMETRY: BPD: 63.2 mm G.Age: 25w 4d 58 % OFD: 80.6 mm HC: 228.9 mm G.Age: 24w 6d 21 % AC: 206.4 mm G.Age: 25w 2d 43 % FL: 44.1 mm G.Age: 24w 4d 19 % HUM: 43.4 mm G.Age: 25w 6d 63 % LV: 4.7 mm TIB: 38.6 mm G.Age: 24w 5d 35 % CI: 78.4 % 70 - 86 FL/HC: 19.3 % 18.7 - 20.3 HC/AC: 1.11 1.04 - 1.22 FL/BPD: 69.8 % 71 - 87 FL/AC: 21.4 % 20 - 24 Est. FW: 753 gm 1 lb 11 oz 31 % GESTATIONAL AGE: LMP: 25w 1d Date: 03/29/20 KLAUS: 01/03/21 U/S Today: 25w 1d KLAUS: 01/03/21 Best: 25w 1d Det. By: LMP (03/29/20) KLAUS: 01/03/21 TARGETED ANATOMY: Central Nervous System Calvarium/Cranial V.: Appears normal Intracranial Gloria: Appears normal Cavum: Appears normal Lateral Ventricles: Appears normal Choroid Plexus: Appears normal Cereb./Vermis: Previously seen Cisterna Magna: Previously seen Midline Falx: Previously seen Spine Cervical: Previously seen Thoracic: Previously seen Lumbar: Previously seen Sacral: Previously seen Head/Neck Face: Previously seen Lips: Previously seen Neck: Previously seen Nuchal Fold: Previously seen Profile: Appears normal Orbits/Eyes: Previously seen Mandible: Previously seen Maxilla: Previously seen Thorax Thoracic Contour: Appears normal Lungs: Appears normal 4 Chamber View: Appears normal Cardiac Motion: Appears normal Cardiac Rhythm: Normal Rt Outflow Tract: Previously seen Lt Outflow Tract: Appears normal Aortic Arch: Previously seen Ductal Arch: Previously seen SVC: Previously seen Cardiac Manchester: Appears normal Diaphragm: Appears normal 3 Vessel View: Appears normal IVC: Previously seen Crossing: Appears normal Abdomen Ventral Wall: Appears normal Cord Insertion: Appears normal Situs: Appears normal Stomach: Appears normal Lt Kidney: Appears normal Rt Kidney: Appears normal Bladder: Appears normal Bowel: Appears normal Extremities Lt Humerus: Previously seen Rt Humerus: Previously seen Lt Forearm: Previously seen Rt Forearm: Previously seen Lt Hand: Appears normal Rt Hand: Appears normal Lt Femur: Previously seen Rt Femur: Previously seen Lt Lower Leg: Previously seen Rt Lower Leg: Previously seen Lt Foot: Previously seen Rt Foot: Previously seen Other Umbilical Cord: 3 Vessel Cord Masses: None visualized Genitalia: Male CERVIX UTERUS ADNEXA: Cervix Normal appearance by abdominal scan Uterus Gravid uterus Left Ovary Size(cm) 2.71 x 1.17 x 1.72 Vol(ml): 2.86 Visualized Right Ovary Not visualized Cul De Sac No fluid seen Adnexa No adnexal masses identified COMMENTS: Ultrasound is not diagnostic for chromosomal abnormalities, will not detect all structural abnormalities, and is not diagnostic for genetic disorders even if multiple exams are performed during a given . RECOMMENDATIONS: 1. Subsequent follow up or other follow up as clinically determined by primary OB provider unless otherwise specified by MFM. 2. Results forwarded to ordering provider so they can follow up with the patient as necessary. Wes Szymanski MD Electronically Signed Final Report 09/21/2020 11:31 Procedure Note Wes Szymanski MD - 09/21/2020 OBSTETRICS REPORT (Signed Final 09/21/2020 11:31) PATIENT INFO: ID #: [id number] : [birth year] (30 yrs)(F) Name: JANINA MC Visit Date: 09/21/2020 10:06 HUMMEL PERFORMED BY: Performed By: Margret Hernandez RDMS Attending: Wes Szymanski MD Referred By: Michael Duncan. Address: [address] [place] [address] [place] [address] Location: [facility] SERVICE(S) PROVIDED: OB Follow-up, 1 fetus [id number] Echocardiogram-complete 96992 INDICATIONS: Screening for follow-up survey Z36.2 History of previous with pre- O09.299 eclampsia Supervision of other high risk , O09.90 antepartum; abn CFDNA low fraction VITAL SIGNS: Weight (lb): 150 Height: 5'2 BMI: 27.43 EVALUATION: Num Of Fetuses: 1 Heart Rate(bpm): 143 Cardiac Activity: Present & appears normal Presentation: Breech Placenta: Right Lateral, away from cervical os Amniotic Fluid JUSTA FV: Subjectively within normal limits JUSTA Sum(cm) %Tile Largest Pocket(cm) 14.18 45 5.1 RUQ(cm) RLQ(cm) LUQ(cm) LLQ(cm) 2.57 5.1 2.78 3.73 BIOMETRY: BPD: 63.2 mm G.Age: 25w 4d 58 % OFD: 80.6 mm HC: 228.9 mm G.Age: 24w 6d 21 % AC: 206.4 mm G.Age: 25w 2d 43 % FL: 44.1 mm G.Age: 24w 4d 19 % HUM: 43.4 mm G.Age: 25w 6d 63 % LV: 4.7 mm TIB: 38.6 mm G.Age: 24w 5d 35 % CI: 78.4 % 70 - 86 FL/HC: 19.3 % 18.7 - 20.3 HC/AC: 1.11 1.04 - 1.22 FL/BPD: 69.8 % 71 - 87 FL/AC: 21.4 % 20 - 24 Est. FW: 753 gm 1 lb 11 oz 31 % GESTATIONAL AGE: LMP: 25w 1d Date: 03/29/20 KLAUS: 01/03/21 U/S Today: 25w 1d KLAUS: 01/03/21 Best: 25w 1d Det. By: LMP (03/29/20) KLAUS: 01/03/21 TARGETED ANATOMY: Central Nervous System Calvarium/Cranial V.: Appears normal Intracranial Gloria: Appears normal Cavum: Appears normal Lateral Ventricles: Appears normal Choroid Plexus: Appears normal Cereb./Vermis: Previously seen Cisterna Magna: Previously seen Midline Falx: Previously seen Spine Cervical: Previously seen Thoracic: Previously seen Lumbar: Previously seen Sacral: Previously seen Head/Neck Face: Previously seen Lips: Previously seen Neck: Previously seen Nuchal Fold: Previously seen Profile: Appears normal Orbits/Eyes: Previously seen Mandible: Previously seen Maxilla: Previously seen Thorax Thoracic Contour: Appears normal Lungs: Appears normal 4 Chamber View: Appears normal Cardiac Motion: Appears normal Cardiac Rhythm: Normal Rt Outflow Tract: Previously seen Lt Outflow Tract: Appears normal Aortic Arch: Previously seen Ductal Arch: Previously seen SVC: Previously seen Cardiac Manchester: Appears normal Diaphragm: Appears normal 3 Vessel View: Appears normal IVC: Previously seen Crossing: Appears normal Abdomen Ventral Wall: Appears normal Cord Insertion: Appears normal Situs: Appears normal Stomach: Appears normal Lt Kidney: Appears normal Rt Kidney: Appears normal Bladder: Appears normal Bowel: Appears normal Extremities Lt Humerus: Previously seen Rt Humerus: Previously seen Lt Forearm: Previously seen Rt Forearm: Previously seen Lt Hand: Appears normal Rt Hand: Appears normal Lt Femur: Previously seen Rt Femur: Previously seen Lt Lower Leg: Previously seen Rt Lower Leg: Previously seen Lt Foot: Previously seen Rt Foot: Previously seen Other Umbilical Cord: 3 Vessel Cord Masses: None visualized Genitalia: Male CERVIX UTERUS ADNEXA: Cervix Normal appearance by abdominal scan Uterus Gravid uterus Left Ovary Size(cm) 2.71 x 1.17 x 1.72 Vol(ml): 2.86 Visualized Right Ovary Not visualized Cul De Sac No fluid seen Adnexa No adnexal masses identified COMMENTS: Ultrasound is not diagnostic for chromosomal abnormalities, will not detect all structural abnormalities, and is not diagnostic for genetic disorders even if multiple exams are performed during a given . RECOMMENDATIONS: 1. Subsequent follow up or other follow up as clinically determined by primary OB provider unless otherwise specified by MFM. 2. Results forwarded to ordering provider so they can follow up with the patient as necessary. Wes Szymanski MD Electronically Signed Final Report 09/21/2020 11:31 IMPRESSION: IMPRESSION: 1. Single intrauterine with expected interval growth from the previous ultrasound. 2. anatomic survey and heart echo did not reveal sonographic evidence of any gross structural abnormalities. 3. Amniotic fluid volume assessment is normal. us Navarro Kee MD IMG US ORDERABLES Final Result documented in this encounter Visit Diagnoses Diagnosis Abnormal chromosomal and genetic finding on screening of mother- Primary History of pre-eclampsia Hx of delivery, currently with history of pre-term labor Abnormal chromosomal and genetic finding on screening of mother History of pre-eclampsia Hx of delivery, currently with history of pre-term labor Encounter for other screening follow-up Supervision of with other poor reproductive or obstetric history, unspecified trimester Supervision of high risk , unspecified, unspecified trimester documented in this encounter Care Teams Lens Edger Relationship Specialty Start Date End Date No Pcp, No Pcp [facility] [place] [address] PCP - General Family Medicine 02/26/20 documented as of this encounter
--- OUTSIDE RECORDS SUMMARY | 2024-11-12 11:15 | XMS_ITS | Encounter Summary ---
Author Organization [facility] Address [address] [facility] [place] [address] Care Team Providers Care Metal Melter Name Role Phone Michael Higginbotham DO Unavailable Encounter Details Date Type Department Care Team (Late st Contact Info) Description 08/19/2024 Orders Only [facility] OB [address] [place] [address] [place] [phone] Isabel Keating MA [address] [place] [address] [place] [address] Social History Tobacco Use Types Packs/Day Years [...] Description 11/13/2024 10:30 AM EDT Routine [facility] OB [address] [place] [address] [place] [address] Diya Villanueva PA [address] [facility] [address] [place], [place] [phone] documented as of this encounter Procedures Procedure Name Priority Date/Time Associated Diagnosis Comments PAP SMEAR Routine 08/05/2024 12:00 AM EST documented in this encounter Results * Pap Smear (08/05/2024 12:00 AM EST) Swab Cervical swab / Unknown [facility] CYTOLOGY ORDERABLES Final Re sult EXTERNAL LAB documented in this encounter Visit Diagnoses Not on filedocumented in this encounter Care Teams Metal Melter Relationship Specialty Start Date End Date Michael Higginbotham DO [address] [facility] [place] [address] PCP - [facility] HEALTH INFORMATION PROVIDER 09/04/23 documented as of this encounter
--- OUTSIDE RECORDS SUMMARY | 2024-11-12 11:15 | XMS_ITS | Encounter Summary ---
Author Organization [facility] Address [address] [facility] [place] [address] Care Team Providers Care Weight Loss Consultant Name Role Phone Michael Higginbotham DO Unavailable Encounter Details Date Type Department Care Team (Late st Contact Info) Description 10/01/2024 Abstract [facility] OB [address] [place] [address] Michael Higginbotham DO [address] [place], [facility] Social History Tobacco Use Types Packs/Day Years [...] Description 11/13/2024 10:30 AM EDT Routine [facility] OB [address] [place] [phone] Diya Villanueva PA [address] [place], [facility] documented as of this encounter Visit Diagnoses Not on filedocumented in this encounter Care Teams Weight Loss Consultant Relationship Specialty Start Date End Date Michael Higginbotham [place] [facility] [address] PCP - [facility] 09/04/23 documented as of this encounter
--- NOTE | 2024-11-12 11:18 | US_ITS ---
[facility] [place] [id number] Patient Name: JANINA HUMMEL MRN: [id number] date: 1990 Sex: F [place] [facility] [place] [facility] [place]/Order Number: [id number] Exam Date: 11/12/2024 12:13 Report Date: 11/12/2024 12:14 At the request of: SAMMIE AHUMADA DO Procedure: US OB BPP w non-stress BIOPHYSICAL PROFILE: CLINICAL INFORMATION: GDM COMPARISON: None There is a single live intrauterine gestation in cephalic presentation. The reported gestational age is 32 weeks 1 day. The heart rate measures 148 beats per minute. FINDINGS: TONE: 1 or more episodes of activity extension and flexion of extremity or opening and closing of the hand [Y] 2/2 GROSS BODY MOVEMENTS: 3 or more discrete body or limb movements [Y] 2/2 BREATHING MOVEMENTS: 1 or more episodes of breathing lasting at least 30 seconds [Y] 2/2 JUSTA: A single deepest vertical pocket of amniotic fluid greater than 2 cm [Y] 2/2 JUSTA: 11.1 cm. This is in low-normal range. Total score: 8/8 US/US OB BPP w non-stress IMPRESSION: NORMAL BIOPHYSICAL PROFILE. Impression dictated by: Madie Long M.D. 11/12/2024 12:14 PM Dictation Location: [place] [address] Electronically authenticated by: [id number] Y Date: 11/12/2024 12:14
[2024-11-12] MEDS: BETAMETHASONE ACE/BETAMETHASONE SOD PHOS 30 MG/5 ML 12 MG IM (12:00)
[2024-11-12 12:05] VITALS: BP 136/82; PULSE 105
[2024-11-12 12:43] VITALS: BP 149/79; PULSE 121
[2024-11-12 12:48] VITALS: BP 144/78; PULSE 122
[2024-11-12 13:25] VITALS: BP 152/92; PULSE 110
[2024-11-12 13:28] VITALS: BP 138/82
[2024-11-12 14:05] LABS: Basophils Percent Auto 0.2 % (0.2-2.0); Eosinophils Percent Auto 0.1 % (0.9-7.0); Hematocrit 30.7 % (36.0-48.0); Hemoglobin 10.1 g/dL (12.0-16.0); Immature Granulocytes Abs Auto 0.07 10^3/uL (0.00-0.03); Immature Granulocytes Pct Auto 0.5 % (0.0-0.5); Lymphocytes Percent Auto 7.4 % (20.5-60.0); Mean Corpuscular HGB Conc 32.9 g/dL (29.9-35.2); Mean Corpuscular Volume 82.1 fL (81.0-99.0); Monocytes Absolute Auto 0.4 10^3/uL (0.3-0.8); Neutrophils Absolute Auto 12.3 10^3/uL (1.4-6.5); Neutrophils Percent Auto 88.8 % (43.0-75.0); Platelet Count 224 10^3/uL (150-450); Red Blood Count 3.74 10^6/uL (4.20-5.40); Red Cell Distribution Width 13.7 % (11.0-15.0); White Blood Count 13.8 10^3/uL (4.0-11.0)
[2024-11-12 14:15] VITALS: BP 140/83; PULSE 97
[2024-11-12 14:17] LABS: Alanine Aminotransferase 14 U/L (14-59); Aspartate Amino Transferase 11 U/L (15-37); Estimated GFR (African America >60 (>=60 mL/min/1.73m^2); Estimated GFR (Non-African Ame >60 (>=60 mL/min/1.73m^2); Uric Acid 3.6 mg/dL (2.6-6.0)
[2024-11-12 14:36] LABS: INR <0.93; Partial Thromboplastin Time 23.3 sec (22.3-36.2); Prothrombin Time 9.8 sec (9.0-11.6)
[2024-11-12 14:48] LABS: Fibrinogen 537 mg/dL (200-400)
[2024-11-12 15:07] LABS: Creatinine Urine Random 19.35 mg/dL (20.00-300.00); Total Protein Urine Random <6.0 mg/dL (<=11.9)
== END 2024-11-12 16:45 | disposition home or self-care (01) ==
LOC: FBCO 14:37 → FBC 14:37
PROVIDERS: Admitting Provider Obstetrics & Gynecology; Visit Provider Obstetrics & Gynecology
DX: O16.3 Unspecified maternal hypertension, third trimester (principal); O24.419 Gestational diabetes mellitus in pregnancy, unspecified control; Z3A.32 32 weeks gestation of pregnancy
CPT/HCPCS: 36415; 76818; 82565; 82570; 84156; 84450; 84460; 84520; 84550; 85025; 85384; 85610; 85730; 96372; G0378; G0379; J0702

== ENCOUNTER 2024-11-13 11:08 | Outpatient (OUT) | payer OTHER, SELFPAY ==
--- OUTSIDE RECORDS SUMMARY | 2024-11-13 11:30 | XMS_ITS | CCD ---
Author Organization [facility] CliniSyoh Care Team Providers Care Cone 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 Name Role Phone NEFTALY, DR COCHRAN Attending Unavailable REQUEST, NONE [...] REQUEST, NONE LISTED Primary Care Unavaila ble KARASIPavan, DR LOTT Consulting Unavailable WELLSBURG, DR POLLO Gonzalez Consulting Unavailable NEFTALY, DR COCHRAN Consulting Unavailable NEFTALY, DR COCHRAN Procedure Practitioner Unavailab RICCARDO Crespo Consulting Unavailable BEATRIZ, DR LOTT Consulting Unavailable REQUEST, NONE LISTED Primary Care Unavaila ble KARASIPavan, DR LOTT Admitting Unavailable KARASIK, DR LOTT Attending Unavailable REQUEST, NONE LISTED Primary Care Unavaila RICCARDO Alejo Admitting Unavailable RICCARDO GARNER Attending Unavailable NEFTALY, DR COCHRAN Consulting Unavailable SOPHIA, DR SCOTT Daniels Consulting Unavailable RICCARDO GARNER Consulting Unavailable REQUEST, NONE LISTED Primary Care Unavaila RICCARDO Alejo Consulting Unavailable RICCARDO GARNER Admitting Unavailable RICCARDO GARNER Attending Unavailable NEFTALY, DR COCHRAN Admitting Unavailable NEFTALY, DR COCHRAN Attending Unavailable REQUEST, NONE LISTED Primary Care Unavaila ble NeftalySammie oblanos DO Unavailable SAMMIE HIGGINBOTHAM Attending Unavailable DIYA ROBLES Attending Unavailable NEFTALYSAMMIE BOLANOS Attending Unavailable LIN SELLERS Attending Unavailable LIN SELLERS Referring Unavailable SAMMIE HIGGINBOTHAM Attending Unavailable Medications Current Medications Medication Drug Class(es) Dates Sig (Normalized) Sig (Original) Blood Glucose Monitoring Suppl (D-Care Glucometer) w/Device kit (6 sources) Start: 10-01-2024 End: 10-01-2025 Blood Glucose Monitoring Suppl (D-Care Glucometer) w/Device kit Indications: Elevated glucose tolerance test 1 kit Daily Use four times daily to check FSBS. In the morning prior to breakfast & 1 hour after each meal for a total of 4times daily. 1 kit 10/01/2024 10/01/2025 Active isopropyl alcohol 0.7 ml/ml medicated pad (6 sources) Start: 10-01-2024 Alcohol Swabs (Alcohol Prep Pad) 70 % pads Indications: Elevated glucose tolerance test Apply 1 Pad topically Daily Use four times daily to check FSBS. 150 each 3 10/01/2024 Active labetalol hydrochloride 100 mg oral tablet (2 sources) beta-Adrenergic Katarina Start: 11-13-2024 End: 11-13-2025 take 1 tablet by mouth in the morning labetalol (Normodyne) 100 MG tablet Indications: Hypertension affecting in third trimester Take 1 tablet (100 mg) by mouth in the morning and 1 tablet (100 mg) before bedtime. 60 tablet 3 11/13/2024 11/13/2025 Active Progesterone (20 sources) Progesterone Start: 06-13-2024 End: 11-13-2024 Progesterone Micronized (progesterone, bulk,) powder 06/13/2024 11/13/2024 Discontinued Start: 06-13-2024 Progesterone M icronized (progesterone, bulk,) powder 06/13/2024 Active Progesterone 200 MG supposit ory (13 sources) Start: 07-08-2024 End: 08-07-2024 Progesterone 200 MG supposit ory Indications: History [...] Problem Classification Problem Date Documented Date Episodic/Chronic Diabetes or abnormal glucose tolerance complicating ; childbirth; or the puerperium (8 sources) Gestational diabetes mellitus in childbirth, diet controlled; Translations: [Gestational diabetes mellitus in , diet controlled] Onset: 12-03-2020 Episodic Headache; including migraine (1 source) Headache; including migraine; Translations: [HEADACHE UNSPECIFIED] Onset: 12-22-2020 Hypertension complicating ; childbirth and the puerperium (2 sources) Hypertension complicating ; Translations: [Unspecified maternal hypertension, third trimester] 11-13-2024 Chronic Immunizations and screening for infectious disease (3 sources) Encounter for screening for human papillomavirus (HPV); Translations: [Exposure to sexually transmissible disorder] Onset: 09-20-2021 08-05-2024 Episodic Menstrual disorders (1 source) Missed period; Translations: [Irregular menstruation, unspecified] 06-07-2024 Chronic Other complications of (2 sources) size does not accord with dates; Translations: [Uterine size-date discrepancy, unspecified trimester] 10-01-2024 Episodic Other complications of (4 sources) History of pre-eclampsia; Translations: [Supervision of with other poor reproductive or obstetric history, unspecified trimester] 10-01-2024 Episodic Other and delivery including normal (15 sources) Single live ; Translations: [] Onset: 12-22-2020 06-07-2024 Episodic Other screening for suspected conditions (not mental disorders or infectious disease) (12 sources) Encounter for screening for malignant neoplasm [...] , childbirth and the puerperium] 07-08-2024 Episodic Residual codes; unclassified (2 sources) Gestation period, 18 weeks; Translations: [18 weeks gestation of ] 08-05-2024 Episodic Residual codes; unclassified (2 sources) Gestation period, 22 weeks; Translations: [22 weeks gestation of ] 09-02-2024 Episodic Residual codes; unclassified (2 sources) Gestation period, 30 weeks; Translations: [30 weeks gestation of ] 10-30-2024 Episodic Residual codes; unclassified (2 sources) Gestation period, 32 weeks; Translations: [32 weeks gestation of ] 11-13-2024 Episodic Unclassified (1 source) CONTACT W/AND (SUSP) EXPOS COVID-19; Translations: [CONTACT W/AND (SUSP) EXPOS COVID-19] Onset: 12-22-2020 Past or Other Problems Problem Classification Problem Date Documented Da te Episodic/Chronic Hypertension complicating ; childbirth and the puerperium [...] Test Name Value Interpretation Reference Range Facility Urinalysis macro (dipstick) panel (U)on 11-13-2024 Bilirubin, UA Negative Negative - 4(70) +++ mg/dL [facility] Blood, UA Negative Negative - 50 Dario/mcL [facility] Clarity, UA Clear [facility] re Color, UA Yellow [facility] Glucose, UA Negative Negative - 1999(110) ++++ mg/dL [facility] Interpretation and review of laboratory results Abnormal [facility]ca re Ketones, UA Positive Negative - 160(16) ++++ mg/dL [facility] Comment on above: 40 Leukocytes, UA Trace Negative - 500+++ Oksana/mcL [facility] Nitrite, UA Negative Negative - Positive [facility] pH, UA 6.5 5 - 9 [facility] e Protein, UA Negative Negative - 1999(20) ++++ mg/dL [facility] Spec Grav, UA 1.005 1 - 1.03 [facility] Urobilinogen, UA 0.2 0.2 - 12 mg/dL [facility] US OB BPP W NON-STRESS on 11-12-2024 [place] [address] Ultrasound Report Signed Patient: JANINA MARTEL MR#: [id number] : 1990 Acct:[id number] Age/Sex: 34 / F ADM Date: 11/12/24 Loc: [facility] 254-[address]: Sammie Higginbotham D.O. Ordering Physician: Sammie Higginbotham D.O. Date of Service: 11/12/24 Procedure(s): US OB BPP w non-stress Accession Number(s): [id number] cc: Sammie Higginbotham D.O.; Physician,Non-Staff M.D. The [place] [id number] Patient Name: JANINA MARTEL MRN: [facility]:[id number] date: 1990 Sex: F Assigned Patient [place] [facility] [place] Patient Location: [facility] [place] Accession/Order Number: [id number] Exam Date: 11/12/2024 12:13 Report Date: 11/12/2024 12:14 At the request of: SAMMIE HIGGINBOTHAM DO Procedure: US OB BPP w non-stress BIOPHYSICAL PROFILE: CLINICAL INFORMATION: GDM COMPARISON: None There is a single live intrauterine gestation in cephalic presentation. The reported gestational age is 32 weeks 1 day. The heart rate measures 148 beats per minute. FINDINGS: TONE: 1 or more episodes of activity extension and flexion of extremity or opening and closing of the hand [Y] 2/2 GROSS BODY MOVEMENTS: 3 or more discrete body or limb movements [Y] 2/2 BREATHING MOVEMENTS: 1 or more episodes of breathing lasting at least 30 seconds [Y] 2/2 JUSTA: A single deepest vertical pocket of amniotic fluid greater than 2 cm [Y] 2/2 JUSTA: 11.1 cm. This is in low-normal range. Total score: 8/8 US/US OB BPP w non-stress IMPRESSION: NORMAL BIOPHYSICAL PROFILE. Impression dictated by: Madie Long M.D. 11/12/2024 12:14 PM Dictation Location: [place] [address] Electronically authenticated by: [id number] Y Date: 11/12/2024 12:14 Dictated By: Madie Long M.D. Signed By: 11/12/24 1217 DD/ 1214 TD/TT: Telescope Repairer: [facility] Radiology, Radiologist, - 11/12/2024 [place] [address] Ultrasound Report Signed Patient: JANINA MARTEL MR#: [id number] : 1990 Acct:[id number] Age/Sex: 34 / F ADM Date: 11/12/24 Loc: [facility] 254-1 Attending : Sammie Higginbotham D.O. Ordering Physician: Sammie Higginbotham D.O. Date of Service: 11/12/24 Procedure(s): US OB BPP w non-stress Accession Number(s): [id number] cc: Sammie Higginbotham D.O.; Physician,Non-Staff [place] [id number] Patient Name: JANINA MARTEL MRN: [facility]:[id number] date: 1990 Sex: F Assigned Patient Location: [facility] [place] Current Patient Location: [facility] [place] Accession/Order Number: [id number] Exam Date: 11/12/2024 12:13 Report Date: 11/12/2024 12:14 At the request of: SAMMIE HIGGINBOTHAM DO Procedure: US OB BPP w non-stress BIOPHYSICAL PROFILE: CLINICAL INFORMATION: GDM COMPARISON: None There is a single live intrauterine gestation in cephalic presentation. The reported gestational age is 32 weeks 1 day. The heart rate measures 148 beats per minute. FINDINGS: TONE: 1 or more episodes of activity extension and flexion of extremity or opening and closing of the hand [Y] 2/2 GROSS BODY MOVEMENTS: 3 or more discrete body or limb movements [Y] 2/2 BREATHING MOVEMENTS: 1 or more episodes of breathing lasting at least 30 seconds [Y] 2/2 JUSTA: A single deepest vertical pocket of amniotic fluid greater than 2 cm [Y] 2/2 JUSTA: 11.1 cm. This is in low-normal range. Total score: 8/8 US/US OB BPP w non-stress IMPRESSION: NORMAL BIOPHYSICAL PROFILE. Impression dictated by: Madie Long M.D. 11/12/2024 12:14 PM Dictation Location: [place] [address] Electronically authenticated by: [id number] Y Date: 11/12/2024 12:14 Dictated By: Madie Long M.D. Signed By: 11/12/24 1217 DD/ TD/TT: Telescope Repairer: [facility] Radiology Study observation (narrative) [facility] US OB BPP W NON-STRESS Ordered By: Radiologist Radiology on 11-12-2024 [employer] Work Phone: US OB FOLLOW UP TRANSABDOMIN AL APPROACHon 10-30-2024 US OB FOLLOW UP TRANSABDOMINAL APPROACH EXAM: US OB FOLLOW UP TRANSABDOMINAL APPROACH [...] II, MD, PHD at 30-Oct-2024 11:19:03 PM [facility] Normal Not Available Comment on above: Order Comment: US OB SCAN FOR GROWTH Estimated Date of Delivery: 01/06/25 Gestational Age as of 10/01/2024: 26w1d Urinalysis macro (dipstick) panel (U)on 10-30-2024 Bilirubin, UA Negative Negative - 4(70) +++ mg/dL [facility] Blood, UA Negative Negative - 50 Dario/mcL [facility] [employer] Clarity, UA Clear [facility] Healthca re Color, UA Yellow [facility] [employer] e Glucose, UA Negative Negative - 2000(110) ++++ mg/dL [facility] Interpretation and review of laboratory results Abnormal [facility] re Ketones, UA Negative Negative - 160(16) ++++ mg/dL [facility] Leukocytes, UA Positive Negative - 500+++ Oksana/mcL [facility] Comment on above: small Nitrite, UA Negative Negative - Positive [facility] pH, UA 7 5 - 9 [facility] Healthcar e Protein, UA Negative Negative - 1999(20) ++++ mg/dL [facility] Spec Grav, UA 1.01 1 - 1.03 [facility] Urobilinogen, UA 0.2 0.2 - 12 mg/dL [facility] Urinalysis macro (dipstick) panel (U)on 09-02-2024 Bilirubin, UA Negative Negative - 4(70) +++ mg/dL [facility] Blood, UA Negative Negative - 50 Dario/mcL [facility] Clarity, UA Clear [facility] re Color, UA Yellow [facility] e Glucose, UA Negative Negative - 1999(110) ++++ mg/dL [facility] Interpretation and review of laboratory results Abnormal [facility] Ketones, UA Negative Negative - 160(16) ++++ mg/dL [facility] Leukocytes, UA Positive Negative - 500+++ Oksana/mcL [facility] Comment on above: Large Nitrite, UA Negative Negative - Positive [facility] pH, UA 7 5 - 9 [facility] Health[facility] e Protein, UA Negative Negative - 1999(20) ++++ mg/dL [facility] Spec Grav, UA 1.01 1 - 1.03 [facility] Urobilinogen, UA 0.2 0.2 - 12 mg/dL [facility] US OB 14+ WEEKS ANATOMY SCAN on 08-21-2024 US OB 14+ WEEKS ANATOMY SCAN EXAM: US OB 14+ WEEKS ANATOMY SCAN [...] II, MD, PHD at 22-Aug-2024 08:46:17 AM [facility] Normal Not Available Comment on above: Order Comment: US OB ANATOMY SINGLE W US OB CERVICAL LENGTH Estimated Date of Delivery: 01/06/25 Gestational Age as of 08/05/2024: 18w0d IGP,APTIMA HPV,AGE GDLNon AGE GDLN ACOG TESTING Note . [facility] Comment on above: TESTS RESULT FLAG UN ITS REF RANGE LAB Clinician Provided Cytology Information Source.............Cervix Other.............. No. of containers..01 ThinPrep Vial Age Tawanda GRECO Maria Antonia... 30 FLAG LEGEND: L-Low Normal,H-High Normal,LL-Alert Low,HH-Alert High <-Panic Low,>-Panic High,A-Abnormal,AA-Critical Abnormal Performed at: 01 =[address] [address] Asha Garza MD, HPV APTIMA Negative Negative [facility] Comment on above: This nucleic acid am plification test detects fourteen high- risk HPV types (16,18,31,33,35,39,45,51,52,56,58,59,66,68) without differentiation. Performed at: =[address] [id number] [employer] Drier: Asha Garza MD, Phone: [phone] Performed at: [address] [id number] [employer]: Asha Garza MD, Phone: [phone] IGP, APTIMA HPV, RFX 16/18,45 Note . [facility] Comment on above: TESTS RESULT FLAG UN ITS REF RANGE LAB DIAGNOSIS: 02 NEGATIVE FOR INTRAEPITHELIAL LESION OR MALIGNANCY. Specimen adequacy: 02 Satisfactory for evaluation. Endocervical and/or squamous metaplastic cells (endocervical component) are present. Performed by: 02 Jojo West, Cost Manager (ASCP) . 02 Note: Note 02 The Pap smear is a screening test designed to aid in the detection of premalignant and malignant conditions of the uterine cervix. It is not a diagnostic procedure and should not be used as the sole means of detecting cervical cancer. Both false-positive and false-negative reports do occur. Test Methodology: Note 02 This liquid based ThinPrep(R) pap test was screened with the use of an image guided system. HPV Genotype Reflex Note 02 Criteria not met, HPV Genotype not performed. FLAG LEGEND: L-Low Normal,H-High Normal,LL-Alert Low,HH-Alert High <-Panic Low,>-Panic High,A-Abnormal,AA-Critical Abnormal Performed at: [address] [address] Asha Garza MD, SPATULA-ALONE CERVIX [facility] Healthcar e RECURRENT VAGINITIS (HTRX)on 08-07-[address] [facility] ATOPOBIUM VAGINAE Not detected [facility] BVAB 2,3 (BACTERIAL VAGINOSIS ASSOCIATED BACTERIA 2, 3); MOBILUNCUS SPP 0 [facility] BVAB 2,3 (BACTERIAL VAGINOSIS ASSOCIATED BACTERIA 2, 3); MOBILUNCUS SPP Not detected [facility] ELODIA ALBICANS, PARAPSILOSIS, TROPICALIS 0 [facility] ELODIA ALBICANS, PARAPSILOSIS, TROPICALIS Not detected [facility] ELODIA GLABRATA 0 [facility] ELODIA GLABRATA Not detected [facility] ELODIA KRUSEI 0 [facility] ELODIA KRUSEI Not detected [facility] CHLAMYDIA TRACHOMATIS 0 [facility] CHLAMYDIA TRACHOMATIS Not detected [facility] GARDNERELLA VAGINALIS 0 [facility] GARDNERELLA VAGINALIS Not detected [facility] MEGASPHAERA (TYPES 1, 2) 0 [facility] MEGASPHAERA (TYPES 1, 2) Not detected [facility] MYCOPLASMA GENITALIUM 0 [facility] MYCOPLASMA GENITALIUM Not detected [facility] NEISSERIA GONORRHOEAE 0 [facility] NEISSERIA GONORRHOEAE Not detected [facility] TRICHOMONAS VAGINALIS 0 [facility] TRICHOMONAS VAGINALIS Not detected [facility] GLUCOSE TOLERANCE 3 HOURon 0 08-03-2024 GLUCOSE TOLERANCE 3 HOUR mg/dL [facility] Comment on above: GLU FAST 94 (<95) Co l: 08/03/24 0809 GLU 1HR 163 (<180) Col: 08/03/24 0912 GLU 2HR 114 (<155) Col: 08/03/24 1012 GLU 3HR 109 (<140) Col: 08/03/24 1112 [facility] Health[facility] e GLUCOSE 1 HOURon 07-27-2024 Glucose [Mass/Vol] 151 mg/dL High NINF - 13 0 mg/dL [facility] Interpretation and review of laboratory results Abnormal [facility] re [facility] Health[facility] e ALL CBC WITH AUTO DIFFon BASOPHILS ABSOLUTE AUTO 0 [facility] Basophils/100 WBC (Bld) 0.3 % 0.2 - 2.0 % [facility] Eosinophils/100 WBC (Bld) 0.2 % Low 0.9 - 7.0 % [facility] Erythrocyte distribution width (RBC) [Ratio] 13.5 % 11.0 - 15.0 % [facility] Hematocrit (Bld) [Volume fraction] 36 % 36.0 - 48.0 % [facility] Healthcar e Hemoglobin (Bld) [Mass/Vol] 12.5 g/dL 12.0 - 16.0 g/dL [facility] IMMATURE GRANULOCYTES ABS AUTO 0.05 High [facility] Immature granulocytes/100 WBC (Bld) 0.4 % 0.0 - 0.5 % [facility] Interpretation and review of laboratory results Abnormal [facility] LYMPHOCYTES ABSOLUTE AUTO 2.1 [facility] Lymphocytes/100 WBC (Bld) 16 % Low 20.5 - 60.0 % [facility] MCH (RBC) [Entitic mass] 30.1 pg 26.7 - 34.0 pg [facility] MCHC (RBC) [Mass/Vol] 34.7 g/dL 29.9 - 35.2 g/dL [facility] MCV (RBC) [Entitic vol] 86.7 fL 81.0 - 99.0 fL [facility] MONOCYTES ABSOLUTE AUTO 0.9 High [facility] Monocytes/100 WBC (Bld) 6.6 % 1.7 - 12.0 % [facility] NEUTROPHILS ABSOLUTE AUTO 9.9 High [facility] Neutrophils/100 WBC (Bld) 76.5 % High 43.0 - 75.0 % [facility] Platelet mean volume (Bld) [Entitic vol] 10.7 fL 9.5 - 13.5 fL [facility] TBH EO # 0 [facility] Healthcar e TBH PLT 276 [facility] Health[facility] e TB RBC 4.15 Low [facility] Health[facility] e TBH WBC 12.9 High [facility] Health[facility] e [facility] HCG ( test) Ql (U)o n 06-07-2024 Interpretation and review of laboratory results Abnormal [facility] re Preg Test, Ur Positive Negative [facility] Health[facility] US OB TRANSVAGINALon 025 US [...] x 4.7 cm (8 weeks, 3 days). [place] rump length is 2.5 cm (9 weeks, [...] UA Negative Negative - 4(70) +++ mg/dL [facility] Blood, UA Negative Negative - 50 Dario/mcL [facility] Clarity, UA Clear [facility] [employer] re Color, UA Yellow [facility] e Glucose, UA Negative Negative - 1999(110) ++++ mg/dL [facility] Interpretation and review of laboratory results Normal [facility] re Ketones, UA Negative Negative - 160(16) ++++ mg/dL [facility] Leukocytes, UA Negative Negative - 500+++ Oksana/mcL [facility] Nitrite, UA Negative Negative - Positive [facility] pH, UA 5.5 5 - 9 [facility] [employer] [employer] Protein, UA Negative Negative - 1999(20) ++++ mg/dL [facility] Spec Grav, UA 1.015 1 - 1.03 [facility] Urobilinogen, UA 0.2 0.2 - 12 mg/dL [facility] TBH PREG QUANT HCGon 024 HCG QUANTITATIVE <1 mIU/mL [facility] Hea lthcare Comment on above: 5-50 0.2-1 WEEK 50-500 1-2 WEEKS 100-5,000 2-3 WEEKS 500-10,000 3-4 WEEKS 1,000-50,000 4-5 WEEKS 10,000-100,000 5-6 WEEKS 15,000-200,000 6-8 WEEKS 10,000-100,000 2-3 MONTHS [facility] Health[facility] e TBH PREG QUANT HCGon 024 HCG QUANTITATIVE 15 mIU/mL [facility] Comment on above: 5-50 0.2-1 WEEK 50-500 1-2 WEEKS 100-5,000 2-3 WEEKS 500-10,000 3-4 WEEKS 1,000-50,000 4-5 WEEKS 10,000-100,000 5-6 WEEKS 15,000-200,000 6-8 WEEKS 10,000-100,000 2-3 MONTHS [facility] TBH PREG QUANT HCGon 024 HCG QUANTITATIVE 22 mIU/mL [facility] Comment on above: 5-50 0.2-1 WEEK 50-500 1-2 WEEKS 100-5,000 2-3 WEEKS 500-10,000 3-4 WEEKS 1,000-50,000 4-5 WEEKS 10,000-100,000 5-6 WEEKS 15,000-200,000 6-8 WEEKS 10,000-100,000 2-3 MONTHS [facility] TBH PREG QUANT HCGon 024 HCG QUANTITATIVE 32 mIU/mL [facility] Comment on above: 5-50 0.2-1 WEEK 50-500 1-2 WEEKS 100-5,000 2-3 WEEKS 500-10,000 3-4 WEEKS 1,000-50,000 4-5 WEEKS 10,000-100,000 5-6 WEEKS 15,000-200,000 6-8 WEEKS 10,000-100,000 2-3 MONTHS [facility] PAP ACOG PANEL 2: 21 to 29on 09-22-2021 . . Normal [facility] Comment on above: Performed By: #### [id number] #### [facility] [address] [place] [address] Dr. Yariel Huynh Age Gdln ACOG Testing - Normal [facility] Comment on above: Performed By: #### [id number] #### [facility] [address] [place] [address] [address] Yariel Huynh DIAGNOSIS: Comment Normal [facility] Comment on above: Result Comment: NEGA TIVE FOR INTRAEPITHELIAL LESION OR MALIGNANCY. Performed By: #### [id number] #### [facility] [address] [place] [address] Dr. Yariel Huynh Methodology: Comment Normal [facility] Comment on above: Result Comment: This liquid based ThinPrep(R) pap test was screened with the use of an image guided system. Performed By: #### [id number] #### [facility] [address] [place] [address] Dr. Yariel Huynh Note: Comment Normal [facility] Comment on above: Result Comment: The Pap smear is a screening test designed to aid in the detection of premalignant and malignant conditions of the uterine cervix. It is not a diagnostic procedure and should not be used as the sole means of detecting cervical cancer. Both false-positive and false-negative reports do occur. . Performed By: #### [id number] #### [facility] [address] [place] [address] Dr. Yariel Huynh Performed by: Comment Normal [facility] Comment on above: Result Comment: Carole Lee Cost Manager (ASCP) Performed By: #### [id number] #### [facility] [address] [place] [address] Dr. Yariel Huynh Reflex Criteria: Comment Normal [facility] Comment on above: Result Comment: The HPV DNA reflex criteria were not met with this specimen result therefore, no HPV testing was performed. . Performed By: #### [id number] #### [facility] [address] [place] [address] Dr. Yariel Huynh Specimen adequacy: Comment Normal [facility] Comment on above: Result Comment: Sati sfactory for evaluation. Endocervical and/or squamous metaplastic cells (endocervical component) are present. Performed By: #### [id number] #### [facility] [address] [place] [address] Dr. Yariel Huynh RUBELLA AB IGGon 12-10-2020 Rubella Antibodies, IgG 1.46 index Normal Immune >0.[address] [facility] Comment on above: Result Comment: Non- immune <0.90 Equivocal 0.90 - 0.99 Immune >0.99 Performed By: #### R UBIGG #### [facility] [address] [place] [address] Clyde Ramachandran CBC AUTO DIFFon 12-09-2020 BASO # 0.1 103/ul Normal 0.0-0.[address] [facility] Comment on above: Performed By: #### [id number] #### [facility] [address] [place] [address] Dr. Yariel Huynh Basophils/100 WBC (Bld) 0.3 % Normal 0.2-2.[address] [facility] Comment on above: Performed By: #### 4 [id number] #### [facility] [address] [place] [address] Dr. Yariel Huynh EO # 0.0 103/ul Normal 0.0-0.[address] [facility] Comment on above: Performed By: #### 4 [id number] #### [facility] [address] [place] [address] Dr. Yariel Huynh Eosinophils/100 WBC (Bld) 0.1 % Critically low 0.9-7.[address] [facility] Comment on above: Performed By: #### 4 [id number] #### [facility] [address] [place] [address] Dr. Yariel Huynh Erythrocyte distribution width (RBC) [Ratio] 13.9 % Normal 11.0-15.[address] [facility] Comment on above: Performed By: #### 4 [id number] #### [facility] [address] [place] [address] Dr. Yariel Huynh Hematocrit (Bld) [Volume fraction] 29.5 % Critically low 36.0-48.[address] [facility] Comment on above: Performed By: #### 4 [id number] #### [facility] [address] [place] [address] Dr. Yariel Huynh Hemoglobin (Bld) [Mass/Vol] 9.3 g/dL Critically low 12.0-16.[address] [facility] Comment on above: Performed By: #### 4 [id number] #### [facility] [address] [place] [address] Dr. Yariel Huynh IG # 0.08 10e3/ul Critically high 0.00-0.03 [facility] Comment on above: Performed By: #### 4 [id number] #### [facility] [address] [address] [address] Yariel Huynh IG % 0.5 % Normal 0.0-0.[address] [facility] Comment on above: Performed By: #### 4 [id number] #### [facility] [address] [address] [address] Yariel Huynh LYMPH # 1.7 103/ul Normal 1.2-3.[address] [facility] Comment on above: Performed By: #### 4 [id number] #### [facility] [address] [address] [address] Yariel Huynh Lymphocytes/100 WBC (Bld) 10.8 % Critically low 20.5-60.[address] [facility] Comment on above: Performed By: #### 4 [id number] #### [facility] [address] [address] [address] Yariel Huynh MANUAL DIFF REQ NO Normal [facility] Comment on above: Performed By: #### 4 [id number] #### [facility] [address] [address] [address] Yariel Huynh MCH (RBC) [Entitic mass] 26.2 pg Critically low 26.7-34.[address] [facility] Comment on above: Performed By: #### 4 [id number] #### [facility] [address] [address] [address] Yariel Huynh MCHC (RBC) [Mass/Vol] 31.5 g/dL Normal 29.9-35.[address] [facility] Comment on above: Performed By: #### 4 [id number] #### [facility] [address] [address] [address] Yariel Huynh MCV (RBC) [Entitic vol] 83.1 fL Normal 81.0-99.[address] [facility] Comment on above: Performed By: #### 4 [id number] #### [facility] [address] [address] [address] Yariel Huynh MONO # 0.8 103/ul Normal 0.3-0.[address] [facility] Comment on above: Performed By: #### 4 [id number] #### [facility] [address] [address] [address] Yariel Huynh Monocytes/100 WBC (Bld) 5.2 % Normal 1.7-12.[address] [facility] Comment on above: Performed By: #### 4 [id number] #### [facility] [address] [address] [address] Yariel Huynh NEUT # 12.8 103/ul Critically high 1.4-6.5 [facility] Comment on above: Performed By: #### 4 [id number] #### [facility] [address] [place] [address] Dr. Yariel Huynh Neutrophils/100 WBC (Bld) 83.1 % Critically high 43.0-75.[address] [facility] Comment on above: Performed By: #### 4 [id number] #### [facility] [address] [place] [address] Dr. Yariel Huynh Platelet mean volume (Bld) [Entitic vol] 12.6 fL Normal 9.5-13.[address] [facility] Comment on above: Performed By: #### 4 [id number] #### [facility] [address] [place] [address] Dr. Yariel Huynh PLT 203 103/ul Normal 150-450 [facility] Comment on above: Performed By: #### 4 [id number] #### [facility] [address] [place] [address] Dr. Yariel Huynh RBC 3.55 106/ul Critically low 4.20-5.40 [facility] Comment on above: Performed By: #### 4 [id number] #### [facility] [address] [place] [address] Dr. Yariel Huynh WBC 15.4 103/ul Critically high 4.0-11.0 [facility] Comment on above: Performed By: #### 4 [id number] #### [facility] [address] [place] [address] Dr. Yariel Huynh ASYMPTOMATIC COVID-19 ANTIGE Non 07-06-2021 EUA Statement SEE BELOW Normal [facility] [place] [...] is revoked sooner. Performed By: #### 4 [id number] #### [facility] [address] [place] [address] Dr. Yariel Huynh SARS-CoV-2 (COVID-19) RNA ESTEBAN+probe Ql (Unsp spec) Negative Normal NEGATIVE [facility] Comment on above: Result Comment: Nega tive results are presumptive. They do not preclude infection and should not be used as the sole basis for treatment decisions. Additional confirmatory testing by a molecular method should be considered. Performed By: #### 4 [id number] #### [facility] [address] [place] [address] Dr. Yariel Huynh BUNon 12-08-2020 Urea nitrogen [Mass/Vol] 15.0 mg/dL Normal 7.0-17.[address] [facility] Comment on above: Performed By: #### 4 [id number] #### [facility] [address] [place] [address] Dr. Yariel Huynh CBC AUTO DIFFon 12-08-2020 BASO # 0.0 103/ul Normal 0.0-0.[address] [facility] Comment on above: Performed By: #### 4 [id number] #### [facility] [address] [place] [address] Dr. Yariel Huynh Basophils/100 WBC (Bld) 0.3 % Normal 0.2-2.[address] [facility] Comment on above: Performed By: #### 4 [id number] #### [facility] [address] [place] [address] Dr. Yariel Huynh EO # 0.0 103/ul Normal 0.0-0.[address] [facility] Comment on above: Performed By: #### 4 [id number] #### [facility] [address] [place] [address] Dr. Yariel Huynh Eosinophils/100 WBC (Bld) 0.4 % Critically low 0.9-7.[address] [facility] Comment on above: Performed By: #### 4 [id number] #### [facility] [address] [place] [address] Dr. Yariel Huynh Erythrocyte distribution width (RBC) [Ratio] 13.8 % Normal 11.0-15.[address] [facility] Comment on above: Performed By: #### 4 [id number] #### [facility] [address] [place] [address] Dr. Yariel Huynh Hematocrit (Bld) [Volume fraction] 31.8 % Critically low 36.0-48.[address] [facility] Comment on above: Performed By: #### 4 [id number] #### [facility] [address] [place] [address] Dr. Yariel Huynh Hemoglobin (Bld) [Mass/Vol] 10.1 g/dL Critically low 12.0-16.[address] [facility] Comment on above: Performed By: #### 4 [id number] #### [facility] [address] [place] [address] Dr. Yariel Huynh IG # 0.07 10e3/ul Critically high 0.00-0.03 [facility] Comment on above: Performed By: #### 4 [id number] #### [facility] [address] [place] [address] Dr. Yariel Huynh IG % 0.7 % Critically high 0.0-0.5 [facility] Comment on above: Performed By: #### 4 [id number] #### [facility] [address] [place] [address] Dr. Yariel Huynh LYMPH # 2.3 103/ul Normal 1.2-3.[address] [facility] Comment on above: Performed By: #### 4 [id number] #### [facility] [address] [place] [address] Dr. Yariel Huynh Lymphocytes/100 WBC (Bld) 22.7 % Normal 20.5-60.[address] [facility] Comment on above: Performed By: #### 4 [id number] #### [facility] [address] [place] [address] Dr. Yariel Huynh MANUAL DIFF REQ NO Normal [facility] Comment on above: Performed By: #### 4 [id number] #### [facility] [address] [place] [address] Dr. Yariel Huynh MCH (RBC) [Entitic mass] 26.7 pg Normal 26.7-34.[address] [facility] Comment on above: Performed By: #### 4 [id number] #### [facility] [address] [place] [address] Dr. Yariel Huynh MCHC (RBC) [Mass/Vol] 31.8 g/dL Normal 29.9-35.[address] [facility] Comment on above: Performed By: #### 4 [id number] #### [facility] [address] [place] [address] Dr. Yariel Huynh MCV (RBC) [Entitic vol] 84.1 fL Normal 81.0-99.[address] [facility] Comment on above: Performed By: #### 4 [id number] #### [facility] [address] [place] [address] Dr. Yariel Huynh MONO # 0.6 103/ul Normal 0.3-0.[address] [facility] Comment on above: Performed By: #### 4 [id number] #### [facility] [address] [place] [address] Dr. Yariel Huynh Monocytes/100 WBC (Bld) 6.3 % Normal 1.7-12.[address] [facility] Comment on above: Performed By: #### 4 [id number] #### [facility] [address] [place] [address] Dr. Yariel Huynh NEUT # 7.0 103/ul Critically high 1.4-6.5 [facility] Comment on above: Performed By: #### 4 [id number] #### [facility] [address] [place] [address] Dr. Yariel Huynh Neutrophils/100 WBC (Bld) 69.6 % Normal 43.0-75.[address] [facility] Comment on above: Performed By: #### 4 [id number] #### [facility] [address] [place] [address] Dr. Yariel Huynh Platelet mean volume (Bld) [Entitic vol] 12.9 fL Normal 9.5-13.[address] [facility] Comment on above: Performed By: #### 4 [id number] #### [facility] [address] [place] [address] Dr. Yariel Huynh PLT 193 103/ul Normal 150-[address] [facility] Comment on above: Performed By: #### 4 [id number] #### [facility] [address] [place] [address] Dr. Yariel Huynh RBC 3.78 106/ul Critically low 4.20-5.40 [facility] Comment on above: Performed By: #### 4 [id number] #### [facility] [address] [place] [address] Dr. Yariel Huynh WBC 10.1 103/ul Normal 4.0-11.[address] [facility] Comment on above: Performed By: #### 4 [id number] #### [facility] [address] [place] [address] Dr. Yariel Huynh CREATININEon 12-08-2020 Creatinine [Mass/Vol] 0.80 mg/dL Normal 0.52-1.[address] [facility] Comment on above: Performed By: #### L DH, URIC, AST, ALT, BUN, CREA #### [facility] [address] [place] [address] Clyde Ramachandran EGFR-AF ISRAELI >60 Normal >=60 [facility] Comment on above: Performed By: #### L DH, URIC, AST, ALT, BUN, CREA #### [facility] [address] [place] [address] Clyde Ramachandran EGFR-NON AF ISRAELI >60 Normal >=[address] [facility] Comment on above: Performed By: #### L DH, URIC, AST, ALT, BUN, CREA #### [facility] [address] [place] [address] Clyde Ramachandran DRUG SCREEN RAPID (URINE)on 12-08-2020 AMP Negative Normal NEGATIVE [facility] Comment on above: Performed By: #### 4 [id number] #### [facility] [address] [place] [address] Dr. Yariel Huynh BAR Negative Normal NEGATIVE [facility] Comment on above: Performed By: #### 4 [id number] #### [facility] [address] [place] [address] Dr. Yariel Huynh BUP Negative Normal NEGATIVE [facility] Comment on above: Performed By: #### 4 [id number] #### [facility] [address] [place] [address] Dr. Yariel Huynh BZO Negative Normal NEGATIVE [facility] Comment on above: Performed By: #### 4 [id number] #### [facility] [address] [place] [address] Dr. Yariel Huynh ROSA Negative Normal NEGATIVE [facility] Comment on above: Performed By: #### 4 [id number] #### [facility] [address] [place] [address] Dr. Yariel Huynh CUT-OFFS SEE BELOW Normal [facility] Comment on above: Result Comment: AMP (Amphetamine): 500ng/mL, BAR (Barbituates): 200 ng/mL, BZO (Benzodiazepines): 150 ng/mL, BUP (Buprenorphine): 10 ng/mL, ROSA (Cocaine): 150 ng/mL, mAMP (Methamphetamine): 500 ng/mL, MTD (Methadone): 200 ng/mL, OPI (Opiates): 100 ng/mL, OXY (Oxycodone): 100 ng/mL, PCP (Phencyclidine): 25 ng/mL, PPX (Propoxyphene): 300 ng/mL, THC (Cannabinoids): 50 ng/mL, TCA (Trycyclic Antidepressants): 300 ng/mL Performed By: #### 4 [id number] #### [facility] [address] [place] [address] Dr. Yariel Huynh DRUG CUT HEADER DRUG CLASS TEST SYSTEM CUT-OFF CONCENTRATIONS ARE FOLLOWS: Normal [facility] Comment on above: Performed By: #### 4 [id number] #### [facility] [address] [place] [address] Dr. Yariel Huynh mAMP Negative Normal NEGATIVE [facility] Comment on above: Performed By: #### 4 [id number] #### [facility] [address] [place] [address] Dr. Yariel Huynh MTD Negative Normal NEGATIVE [facility] Comment on above: Performed By: #### 4 [id number] #### [facility] [address] [place] [address] Dr. Yariel Huynh OPI Negative Normal NEGATIVE [facility] Comment on above: Performed By: #### 4 [id number] #### [facility] [address] [place] [address] Dr. Yariel Huynh OXY Negative Normal NEGATIVE [facility] Comment on above: Performed By: #### 4 [id number] #### [facility] [address] [place] [address] Dr. Yariel Huynh PCP Negative Normal NEGATIVE [facility] Comment on above: Performed By: #### 4 [id number] #### [facility] [address] [place] [address] Dr. Yariel Huynh PPX Negative Normal NEGATIVE [facility] Comment on above: Performed By: #### 4 [id number] #### [facility] [address] [place] [address] Dr. Yariel Huynh TCA Negative Normal NEGATIVE [facility] Comment on above: Performed By: #### 4 [id number] #### [facility] [address] [place] [address] Dr. Yariel Huynh THC Negative Normal NEGATIVE [facility] Comment on above: Performed By: #### 4 [id number] #### [facility] [address] [place] [address] Dr. Yariel Huynh LDHon 12-08-2020 LDH 163 U/L Normal 122-222 [facility] Comment on above: Performed By: #### L DH, URIC, AST, ALT, BUN, CREA #### [facility] [address] [place], [place] [id number] Clyde Ramachandran SGOTon 12-08-2020 AST [Catalytic activity/Vol] 15 U/L Normal 14-36 [facility] Comment on above: Performed By: #### L DH, URIC, AST, ALT, BUN, CREA #### [facility] [address] [place] [address] Clyde Ramachandran SGPTon 12-08-2020 ALT [Catalytic activity/Vol] 12 U/L Normal 9-52 [facility] Comment on above: Performed By: #### L DH, URIC, AST, ALT, BUN, CREA #### [facility] [address] [place] [address] Clyde Madie TYPE AND SCREENon 12-08-2020 TYPE AND SCREEN Negative Normal [facility] Comment on above: Performed By: #### T NS #### [facility] [address] [place] [address] Clyde Ramachandran URIC ACID SERUMon 12-08-2020 Urate [Mass/Vol] 5.0 mg/dL Normal 2.5-6.2 [facility] Comment on above: Performed By: #### L DH, URIC, AST, ALT, BUN, CREA #### [facility] [address] [place], [place] [id number] Clyde Ramachandran US PREG BIOPHY W NON [...] PABLO Date: 2020-12-08 08:[address] [facility] US PREG BIOPHY W NON STRESSo [...] Date: 2020-12-01 10:[address] [facility] Vital Signs Date Time Vital Sign Value Performing Clinician Roxann torres 11-13-2024 10:28-0400 Body weight 78.65 kg Diya GEE Work Phone: [facility] 11-13-2024 10:28-0400 Diastolic blood pressure 78 mm[Hg] Diya GEE Work Phone: [facility] 11-13-2024 10:28-0400 Systolic blood pressure 130 mm[Hg] Diya GEE Work Phone: [facility] 10-30-2024 10:31-0400 Body weight 78.53 kg Sammie Neftaly DO Work Phone: [facility] 10-30-2024 10:31-0400 Diastolic blood pressure 78 mm[Hg] Sammie Neftaly DO Work Phone: [facility] 10-30-2024 10:31-0400 Systolic blood pressure 120 mm[Hg] Sammie Neftaly DO Work Phone: [facility] 10-01-2024 09:38-0400 Body weight 75.48 kg Lin Sellers NP Work Phone: [facility] 10-01-2024 09:38-0400 Diastolic blood pressure 76 mm[Hg] Lin Sellers MOHS SURGEON/GENERAL DERMATOLOGIST Work Phone: [facility] 10-01-2024 09:38-0400 Systolic blood pressure 120 mm[Hg] Lin Sellers MOHS SURGEON/GENERAL DERMATOLOGIST Work Phone: [facility] 09-02-2024 09:46-0400 Body weight 71.85 kg Sammie Neftaly DO Work Phone: [facility] 09-02-2024 09:46-0400 Diastolic blood pressure 82 mm[Hg] Sammie Neftaly DO Work Phone: [facility] 09-02-2024 09:46-0400 Systolic blood pressure 122 mm[Hg] Sammie Neftaly DO Work Phone: [facility] 08-05-2024 09:52-0500 Body weight 68.49 kg Diya GEE Work Phone: [facility] 08-05-2024 09:52-0500 Diastolic blood pressure 78 mm[Hg] Diya GEE Work Phone: [facility] 08-05-2024 09:52-0500 Systolic blood pressure 124 mm[Hg] Diya GEE Work Phone: [facility] 07-08-2024 09:52-0500 Body weight 67.31 kg Sammie Neftaly DO Work Phone: [facility] 07-08-2024 09:52-0500 Diastolic blood pressure 70 mm[Hg] Sammie Neftaly DO Work Phone: [facility] 07-08-2024 09:52-0500 Systolic blood pressure 118 mm[Hg] Sammie Neftaly DO Work Phone: [facility] 06-07-2024 09:47-0500 Body weight 66.22 kg [facility] 06-07-2024 09:47-0500 Diastolic blood pressure 72 mm[Hg] [facility] 06-07-2024 09:47-0500 Systolic blood pressure 122 mm[Hg] [facility] Healthcare Encounters Encounter Date Encounter Type Care Provider Facility Start: 11-13-2024 End: 11-13-2024 Bamboo flowsheet Diya GEE Work Phone: [facility] Start: 11-13-2024 End: 11-13-2024 Bamboo flowsheet Diya GEE Work Phone: [facility] Start: 11-13-2024 End: 11-13-2024 Office outpatient visit 15 minutes Diya GEE Work Phone: [facility] Comment on above: Hypertension affecti ng in third trimester (Primary Dx); 32 weeks gestation of ; Third trimester Start: 11-12-2024 End: 11-12-2024 Clinisync Result Encounter Sammie Neftaly DO Work Phone: [facility] External Department Unsolicited Start: 11-12-2024 End: 11-12-2024 Clinisync Result Encounter Sammie Neftaly DO Work Phone: [facility] Unsolicited Start: 10-30-2024 End: 10-30-2024 Office outpatient visit 15 minutes Sammie Neftaly DO Work Phone: [facility] Comment on above: 30 weeks gestation o f ; Third trimester ; H/O pre-eclampsia in prior , currently ; Gestational diabetes mellitus (GDM), antepartum, gestational diabetes method of control unspecified Start: 10-30-2024 End: 10-30-2024 ambulatory SAMMIE NEFTALY Not Available Start: 10-01-2024 End: 10-01-2024 Bamboo flowsheet Lin Sellers MOHS SURGEON/GENERAL DERMATOLOGIST Work Phone: [facility] Start: 10-01-2024 End: 10-01-2024 Bamboo flowsheet Lin Sellers MOHS SURGEON/GENERAL DERMATOLOGIST Work Phone: [facility] Start: 10-01-2024 End: 10-01-2024 Office outpatient visit 15 minutes Lin Sellers NP Work Phone: [facility] Comment on above: Second trimester pre gnancy; size inconsistent with dates; H/O pre-eclampsia in prior , currently Start: 10-01-2024 End: 10-01-2024 ambulatory LIN SELLERS Not Available Start: 09-02-2024 End: 09-02-2024 Bamboo flowsheet Sammie Neftaly DO Work Phone: [facility] Start: 09-02-2024 End: 09-02-2024 Bamboo flowsheet Sammie Neftaly DO Work Phone: [facility] Start: 09-02-2024 End: 09-02-2024 Office outpatient visit 15 minutes Sammie Neftaly DO Work Phone: [facility] Comment on above: Second trimester pre gnancy; 22 weeks gestation of ; Diabetes mellitus screening Start: 09-02-2024 End: 09-02-2024 ambulatory SAMMIE NEFTALY Not Available Start: 08-21-2024 End: 08-21-2024 ambulatory SAMMIE NEFTALY Not Available Start: 08-05-2024 End: 08-05-2024 Bamboo flowsheet Diya GEE Work Phone: [facility] Start: 08-05-2024 End: 08-08-2024 Bamboo flowsheet Diya GEE Work Phone: [facility] Start: 08-05-2024 End: 08-08-2024 Clinisync Result Encounter Diya GEE Work Phone: [facility] External Department Unsolicited Start: 08-05-2024 End: 08-07-2024 External Result Encounter Diya GEE Work Phone: [facility] External Department Unsolicited Start: 08-05-2024 End: 08-05-2024 Office outpatient visit 15 minutes Diya GEE Work Phone: [facility] Comment on above: Well woman exam with routine gynecological exam; Exposure to STD; Second trimester ; 18 weeks gestation of ; Need for maternal serum alpha-protein (MSAFP) screening; Screening, , for anatomic survey Start: 08-05-2024 End: 08-05-2024 Patient encounter procedure Diya GEE Work Phone: [facility] Start: 08-05-2024 End: 08-05-2024 ambulatory DIYA ROBLES Not Available Start: 08-03-2024 End: 08-03-2024 Clinisync Result Encounter Sammie Neftaly DO Work Phone: [facility] Unsolicited Start: 08-03-2024 End: 08-03-2024 Clinisync Result Encounter Sammie Neftaly DO Work Phone: [facility] Unsolicited Start: 07-27-2024 End: 07-27-2024 Clinisync Result Encounter Sammie Neftaly DO Work Phone: [facility] Unsolicited Start: 07-27-2024 End: 07-27-2024 Clinisync Result Encounter Sammie Neftaly DO Work Phone: [facility] Unsolicited Start: 07-08-2024 End: 07-08-2024 Bamboo flowsheet Sammie Neftaly DO Work Phone: [facility] Start: 07-08-2024 End: 07-08-2024 Bamboo flowsheet Sammie Neftaly DO Work Phone: [facility] Start: 07-08-2024 End: 07-08-2024 Office [...] Date Procedure Procedure Detail Performing Clinician Start: 11-13-2024 Urnls dip stick/tabl et rgnt non-auto w/o micrscp Diya GEE Work Phone: Start: 11-12-2024 US OB BPP W NON-STRESS Sammie Neftaly DO Work Phone: Start: 10-30-2024 Urnls dip stick/tabl et rgnt non-auto w/o micrscp Sammie Neftaly DO Work Phone: Start: 09-02-2024 Urnls dip stick/tabl et rgnt non-auto w/o micrscp Sammie Neftaly DO Work Phone: Start: 08-05-2024 RECURRENT VAGINITIS (HTRX) Diya GEE Work Phone: Start: 08-05-2024 IGP,APTIMA HPV,AGE GDLN Diya GEE Work Phone: Start: 08-05-2024 Microscopic observat ion [Identifier] in Cervix by Cyto stain Sammie Neftaly DO Work Phone: Start: 08-03-2024 GLUCOSE TOLERANCE 3 HOUR Sammie Neftaly DO Work Phone: Start: 07-27-2024 GLUCOSE 1 HOUR Sammie Fa [...] Treatment Date Care Activity Detail Author Start: 08-05-2029 Screening for malign ant neoplasm of cervix [facility] Start: 03-15-2028 Screening for malign ant neoplasm of cervix [facility] Start: 02-03-2025 Influenza vaccination Influenz a Vaccine (Season Ended) [facility] Start: 11-13-2024 End: 11-13-2024 Patient encounter procedure [facility] Comment on above: Arrived Start: 10-30-2024 End: 05-02-2025 US biophysical profile w non stress test US biophysical profile w non stress test Imaging Routine 30 weeks gestation of Third trimester H/O pre-eclampsia in prior , currently Gestational diabetes mellitus (GDM), antepartum, gestational diabetes method of control unspecified Expected: 10/30/2024 (Approximate), Expires: 05/02/2025 [facility] Work Phone: Comment on above: Expected: 10/30/2024 (Approximate), Expires: 05/02/2025 Start: 10-01-2024 End: 01-31-2025 US for US OB follow up transabdominal approach Imaging Routine H/O pre-eclampsia in prior , currently Expected: 10/01/2024, Expires: 01/31/2025 [facility] Work Phone: Comment on above: Expected: 10/01/2024 , Expires: 01/31/2025 Start: 10-01-2024 End: 10-01-2024 Patient encounter procedure [facility] Comment on above: Arrived Start: 09-02-2024 End: 09-02-2025 CBC panel - Blood by Automated count CBC Lab Routine Diabetes mellitus screening Expected: 09/02/2024 (Approximate), Expires: 09/02/2025 [facility] Work Phone: Comment on above: Expected: 09/02/2024 (Approximate), Expires: 09/02/2025 Start: 09-02-2024 End: 09-02-2025 Measurement of glucose 1 hour after glucose challenge for glucose tolerance test Glucose tolerance, 1 hour Lab Routine Diabetes mellitus screening Expected: 09/02/2024 (Approximate), Expires: 09/02/2025 [facility] Comment on above: Expected: 09/02/2024 (Approximate), Expires: 09/02/2025 Start: 09-02-2024 End: 09-02-2024 Patient encounter procedure [facility] Comment on above: Arrived Start: 08-21-2024 End: 08-21-2024 Professional / ancillary services management 08/21/2024 9:00 AM EDT Ancillary Procedure [facility] [address] [place] [address] [place] [id number] [facility] Start: 08-05-2024 End: 09-05-2024 Alpha fetoprotein, maternal Alpha fetoprotein, maternal Lab Routine Need for maternal serum alpha-protein (MSAFP) screening Expected: 08/05/2024 (Approximate), Expires: 09/05/2024 [facility] Comment on above: Expected: 08/05/2024 (Approximate), Expires: 09/05/2024 Start: 08-05-2024 End: 08-05-2025 US for US OB 14+ weeks anatomy scan Imaging Routine Screening, , for anatomic survey Expected: 08/05/2024 (Approximate), Expires: 08/05/2025 [facility] Comment on above: Expected: 08/05/2024 (Approximate), Expires: 08/05/2025 Start: 08-05-2024 End: 08-05-2024 Patient encounter procedure [facility] Comment on above: Arrived Start: 07-08-2024 End: 07-08-2025 Measurement of glucose 1 hour after glucose challenge for glucose tolerance test Glucose tolerance, 1 hour Lab Routine Diabetes mellitus screening Expected: 07/08/2024 (Approximate), Expires: 07/08/2025 [facility] Work Phone: Comment on above: Expected: 07/08/2024 (Approximate), Expires: 07/08/2025 Start: 07-08-2024 End: 07-08-2024 Patient encounter procedure [facility] Comment on above: Arrived Start: 06-07-2024 End: 06-07-2025 ABO/Rh ABO/Rh Lab Routine Missed menses , unspecified gestational age Expected: 06/07/2024 (Approximate), Expires: 06/07/2025 [facility] Comment on above: Expected: 06/07/2024 (Approximate), Expires: 06/07/2025 Start: 06-07-2024 End: 06-07-2025 Blood type and Indirect antibody screen panel - Blood Type and screen Lab Routine Missed menses , unspecified gestational age Expected: 06/07/2024 (Approximate), Expires: 06/07/2025 [facility] Work Phone: Comment on above: Expected: 06/07/2024 (Approximate), Expires: 06/07/2025 Start: 06-07-2024 End: 06-07-2025 Drugs of abuse panel - Urine by Screen method Rapid drug screen, urine Lab Routine , unspecified gestational age Encounter for supervision of normal first in first trimester Expected: 06/07/2024 (Approximate), Expires: 06/07/2025 [facility] Comment on above: Expected: 06/07/2024 (Approximate), Expires: 06/07/2025 Start: 04-19-2024 End: 04-19-2024 ambulatory 04/19/2024 10:00 AM EST Initial [facility] [address] [id number] [facility] Start: 04-19-2024 End: 04-19-2024 Professional / ancillary services management 04/19/2024 9:30 AM EST Ancillary Procedure [facility] [address] [address] [facility] Start: 02-04-2024 Influenza vaccination Influenza Vacc ine (#1) [facility] Start: 2013 Screening for malign ant neoplasm of cervix Pap Smear [facility] Bacteria identified in Urine by Culture Urine culture Microbiology Routine Missed menses Ordered: 06/07/2024 [facility] Comment on above: Ordered: 06/07/2024 CBC W Auto Different ial panel - Blood CBC and differential Lab Routine Missed menses , unspecified gestational age Ordered: 06/07/2024 [facility] Comment on above: Ordered: 06/07/2024 CHLAMYDIA TRACHOMATI S (GENITO/STI) CHLAMYDIA TRACHOMATIS (GENITO/STI) Lab Routine Exposure to STD Ordered: 08/05/2024 [facility] Comment on above: Ordered: 08/05/2024 Cytology Cervical or vaginal smear or scraping study Pap Smear Pathology and Cytology Routine Well woman exam with routine gynecological exam Ordered: 08/05/2024 [facility] Comment on above: Ordered: 08/05/2024 Hemoglobin A1c/Hemoglobin.total in Blood Hemoglobin A1c Lab Routine Missed menses , unspecified gestational age Ordered: 06/07/2024 [facility] Comment on above: Ordered: 06/07/2024 Hepatitis B virus surface Ag [Presence] in Serum or Plasma by Immunoassay Hepatitis B surface antigen Lab Routine Missed menses , unspecified gestational age Ordered: 06/07/2024 [facility] Comment on above: Ordered: 06/07/2024 Hepatitis C virus Ab [Presence] in Serum or Plasma by Immunoassay Hepatitis C antibody Lab Routine Missed menses , unspecified gestational age Ordered: 06/07/2024 [facility] Comment on above: Ordered: 06/07/2024 HIV-1/HIV-2 antigen/antibody combination immunoassay HIV-1 and HIV-2 antibodies Lab Routine Missed menses , unspecified gestational age Ordered: 06/07/2024 [facility] Comment on above: Ordered: 06/07/2024 Human papilloma viru s DNA [Presence] in Unspecified specimen by Probe with amplification HPV DNA probe, amplified Microbiology Routine Well woman exam with routine gynecological exam Ordered: 08/05/2024 [facility] Comment on above: Ordered: 08/05/2024 Neisseria gonorrhoea e DNA [Presence] in Unspecified specimen by ESTEBAN with probe detection Neisseria gonorrhea DNA probe, direct Lab Routine Exposure to STD Ordered: 08/05/2024 [facility] Comment on above: Ordered: 08/05/2024 Reagin Ab [Presence] in Serum by RPR RPR Lab Routine Missed menses , unspecified gestational age Ordered: 06/07/2024 [facility] Comment on above: Ordered: 06/07/2024 Rubella antibody, IgG Rubella an tibody, IgG Lab Routine Missed menses , unspecified gestational age Ordered: 06/07/2024 [facility] Comment on above: Ordered: 06/07/2024 SURESWAB(R) ADVANCED VAGINITIS PLUS, TMA SURESWAB(R) ADVANCED VAGINITIS PLUS, TMA Pathology and Cytology Routine Exposure to STD Ordered: 08/05/2024 [facility] Work Phone: Comment on above: Ordered: 08/05/2024 Immunizations Immunization Date Immunization Notes Care Provider [facility] 05-09-2019 influenza virus vacc ine, unspecified formulation Sammie Higginbotham DO Work Phone: [facility] Payers Date Payer Category Payer Private Health Insurance [facility] [id number] 2017 Medicaid [id number] 1992 Unknown [id number]. 593 1992 Unknown [id number] 2.1.649578.3.579.2. 593 1992 Unknown [id number] 2.16.840.1.971671.3.579.2. 593 1992 Unknown [id number] 2.16.840.1.939611.3.579.2. 593 1992 Unknown [id number] 2.16.840.1.201015.3.579.2. 593 1992 Unknown [id number] 2.16.840.1.053499.3.579.2. 593 1992 Unknown [id number] 2.16.840.1.267321.3.579.2. 593 1992 Unknown [id number] 2.16.840.1.753976.3.579.2. 593 1992 Unknown [id number] 2.16.840.1.151406.3.579.2. 593 1992 Unknown [id number] 2.16.840.1.970932.3.579.2. 1259 1992 Unknown [id number] 2.16.840.1.149684.3.579.2. 1259 1992 Unknown [id number] 2.16.840.1.480715.3.579.2. 1259 1992 Unknown [id number] 2.16.840.1.822776.3.579.2. 1259 1992 Unknown [id number] 2.16.840.1.967426.3.579.2. 1259 1992 Unknown [id number] 2.16.840.1.218405.3.579.2. 1259 1992 Unknown [id number] 2.16.840.1.622873.3.579.2. 1259 1992 Unknown [id number] 2.16.840.1.688924.3.579.2. 1259 1992 Unknown [id number] 2.16.840.1.664446.3.579.2. 1259 1957 Self-pay [id number] 1957 Unknown [id number] Social History Date Type Detail Facility Tobacco smoking stat [facility] Tobacco smoking consumption unknown [facility] Start: 1990 Sex assigned at Not on file [facility] Gender identity Not on file [facility] Start: 04-15-2024 [facility] Procedure Code Equipment Code Equipment Origin al Text Equipment Identifier Dates 1 strip by In Vi tro route Daily Use in the morning prior to breakfast, 1 hour after each meal for a total of 4times daily. [id number] Start: 10-01-2024 End: 11-13-2024 1 each by In Vit ro route Daily Use to check FSBS four times daily [id number] Start: 10-01-2024 End: 11-13-2024 Clinical Notes 06-07-2024 to 11-13-2024 Diya Robles, MARLEN - 11/13/2024 10:30 AM Kelley Maldonado LPN - 10/30/2024 10:50 AM Cooper Sellers NP - 10/01/2024 9:30 AM Cooper Sellers NP - 09/02/2024 9:50 AM EDT Note Date & Type Note Facility 11-13-2024 History of Presen t illness Narrative Reason for Appointment: Patient ID: Janina Martel is a 34 y.o. female who presents for Routine Visit Patient presents today for Return OB appointment. MEDICATIONS Current Outpatient Medications Medication Instructions Alcohol Swabs (Alcohol Prep Pad) 70 % pads 1 Pad, Topical, Daily, Use four times daily to check FSBS. Blood Glucose Monitoring Suppl (D-Care Glucometer) w/Device kit 1 kit, Does not [...] of fasting but pt staes she had been stress eating, we will also start labetolol 100mg bid Orders Placed This Encounter Procedures POCT urinalysis dipstick manually resulted Follow Up: Patient is to return to office in 2 week for routine OB appointment. Documented by MARLEN Estrada on behalf of: MARLEN Estrada documented in this encounter [facility] 10-30-2024 History of Presen t illness Narrative Reason for Appointment: Patient ID: Janina Martel is a 34 y.o. female who presents for No chief complaint on file. Patient presents today for Return OB appointment. MEDICATIONS Current Outpatient Medications Medication Instructions Alcohol Swabs (Alcohol Prep Pad) 70 % pads 1 Pad, Topical, Daily, Use four times daily to check FSBS. Blood Glucose Monitoring Suppl ([id number] Glucometer) w/Device kit 1 kit, Does not [...] nursing note reviewed. Exam conducted with a public speaking instructor present. Vitals: There is no height or [...] by Madie Maldonado LPN on behalf of: Sammie Higginbotham DO documented in this encounter [facility] 10-01-2024 History of Presen t illness Narrative Reason for Appointment: Patient ID: Janina Martel is a 34 y.o. female who presents for Routine Visit Patient presents today for Return OB appointment. MEDICATIONS Current Outpatient Medications Medication Instructions Progesterone Micronized (progesterone, bulk,) powder ALLERGIES No [...] nursing note reviewed. Exam conducted with a public speaking instructor present. Vitals: There is no height or weight on file to calculate BMI. BP: 120/76 Patient's last menstrual period was 04/01/2024. ASSESSMENT & PLAN ICD-10-CM 1. Second trimester Z34.92 2. size inconsistent with dates O26.849 3. H/O pre-eclampsia in prior , currently O09.299 US OB follow up transabdominal approach Return OB: Patient presents today for a routine obstetrics appointment. Patient is currently 26w1d . Patient states she is doing well but has complaints of being tired due to current . Patient has verbalizes frequent movement. labor precautions was discussed/given and patient was instructed to perform kick counts three times a day. Orders Placed This Encounter Procedures US OB follow up transabdominal approach Follow Up: Patient is to return to office in 4 week for routine OB appointment. Documented by Lin Sellers NP on behalf of: Lin Sellers NP documented in this encounter [facility] 09-02-2024 History of Presen t illness Narrative Reason for Appointment: Patient ID: Janina Martel is a 34 y.o. female who presents for Routine Visit Patient presents today for Return OB appointment. MEDICATIONS Current Outpatient Medications Medication Instructions Progesterone Micronized (progesterone, bulk,) powder ALLERGIES No Known Allergies PROBLEMS Active Ambulatory Problems Diagnosis Date Noted No Active Ambulatory Problems Resolved Ambulatory Problems Diagnosis Date Noted No Resolved Ambulatory Problems No Additional Past Medical History HISTORY PAST MEDICAL HISTORY SOCIAL HISTORY No past medical history on file. Social History Tobacco Use Smoking status: Not on file Smokeless tobacco: Not on file Substance Use Topics Alcohol use: Not on file Drug use: Not on file FAMILY HISTORY No family history on file. SURGICAL HISTORY No past surgical history on file. REVIEW OF SYSTEMS Review of Systems: Review [...] nursing note reviewed. Exam conducted with a public speaking instructor present. Vitals: There is no height or weight on file to calculate BMI. BP: 122/82 Patient's last menstrual period was 04/01/2024. ASSESSMENT & PLAN ICD-10-CM 1. Second trimester Z34.92 POCT urinalysis dipstick manually resulted 2. 22 weeks gestation of Z3A.22 CANCELED: CBC and differential 3. Diabetes mellitus screening Z13.1 CBC Glucose tolerance, 1 hour CBC Glucose tolerance, 1 hour Return OB: Patient presents today for a routine obstetrics appointment. Patient is currently 22w0d . Patient states she is doing well but has complaints of being tired due to current . Patient has verbalizes frequent movement. labor precautions was discussed/given and patient was instructed to perform kick counts three times a day. Orders Placed This Encounter Procedures CBC Glucose tolerance, 1 hour POCT urinalysis dipstick manually resulted Follow Up: Patient is to return to office in 4 week for routine OB appointment. Documented by Lin Sellers NP on behalf of: Sammie Higginbotham DO documented in this encounter [facility] 08-05-2024 History of Presen t illness Narrative Reason for Appointment: Patient ID: Janina Martel is a 34 y.o. female who presents for Gynecologic Exam and STI Screening Patient presents today for Annual Exam., STD Check., and Return OB appointment. MEDICATIONS Current Outpatient Medications [...] History HISTORY PAST MEDICAL HISTORY SOCIAL HISTORY No past medical history on file. Social History Tobacco Use [...] Objective: Physical Exam Constitutional: Appearance: Normal appearance. Genitourinary: Right Adnexa: not tender and no mass present. Left Adnexa: not tender and no mass present. No cervical discharge. Breasts: Breasts are soft. Right: Normal. Left: Normal. HENT: Head: Normocephalic. Nose: Nose normal. Mouth/Throat: Mouth: Mucous membranes are moist. Cardiovascular: Rate and Rhythm: Normal rate. Pulmonary: Effort: Pulmonary effort is normal. Abdominal: General: Bowel sounds are normal. Palpations: Abdomen is soft. Musculoskeletal: General: Normal range of motion. Cervical back: Normal range of motion. Neurological: General: No focal deficit present. Mental Status: She is alert. Skin: General: Skin is warm and dry. Psychiatric: Mood and Affect: Mood normal. Vitals and nursing note reviewed. Exam conducted with a public speaking instructor present. Vitals: There is no height or weight on file to calculate BMI. BP: Patient's last menstrual period was 04/01/2024. ASSESSMENT & PLAN ICD-10-CM 1. Well woman exam with routine gynecological exam Z01.419 Pap Smear HPV DNA probe, amplified 2. Exposure to STD Z20.2 SURESWAB(R) ADVANCED VAGINITIS PLUS, TMA CHLAMYDIA TRACHOMATIS (GENITO/STI) Neisseria gonorrhea DNA probe, direct 3. Second trimester Z34.92 POCT urinalysis dipstick manually resulted 4. 18 weeks gestation of Z3A.18 5. Need for maternal serum alpha-protein (MSAFP) screening Z36.1 Alpha fetoprotein, maternal Alpha fetoprotein, maternal Return OB/Annual Exam: Patient presents today for a annual exam/routine obstetrics appointment. Patient is currently 18w0d . Patient states she is doing well but has complaints of nausea in the morning. Pap and cultures was obtained without difficulty and patient was given orders for anatomy scan and msAFP to be obtained. Patient was given her 3 hour glucose and CBC order to obtain as soon as she can. Pt failed her 1 hour glucose on 07/27/2024 and was aware of her results. Orders Placed This Encounter Procedures HPV DNA probe, amplified CHLAMYDIA TRACHOMATIS (GENITO/STI) Neisseria gonorrhea DNA probe, direct Alpha fetoprotein, maternal POCT urinalysis dipstick manually resulted Follow Up: Patient is to schedule annual exam for next year and return to office in 4 weeks for OB appointment. Patient was placed on progesterone suppositories due to premature delivery at 34 and 35 weeks with G1 and G3. Patient states she is excoriated in vaginal area. She wishes to stop suppositories. We will give celestone at 32-33 weeks. Patient aware of reasons for progesterone and comfortable with not taking any further Documented by Isabel Keating MA on behalf of: MARLEN Estrada documented in this encounter [facility] 07-08-2024 History of Presen t illness Narrative Reason for Appointment: Patient ID: Janina Martel is a 34 y.o. female who [...] Sammie Higginbotham DO documented in this encounter [facility] 06-07-2024 History of Presen t illness Narrative Reason for Appointment: Patient ID: Janina Martel is a 34 y.o. female who [...] in this encounter [facility] Evaluation note Diagnosis Missed menses 9 weeks gestation of , unspecified gestational age Encounter for supervision of normal first in first trimester [facility]* Diagnosis Second trimester state, incidental 14 weeks gestation of Diabetes mellitus screening Screening for diabetes mellitus History of miscarriage Personal history of other genital system and obstetric disorders [facility]* Diagnosis Well woman exam with routine gynecological exam Routine gynecological examination Exposure to STD Second trimester state, incidental 18 weeks gestation of Need for maternal serum alpha-protein (MSAFP) screening Screening, , for anatomic survey Encounter for anatomic survey [facility]* Diagnosis Second trimester state, incidental 22 weeks gestation of Diabetes mellitus screening Screening for diabetes mellitus documented [facility]* Diagnosis Second trimester state, incidental size inconsistent with dates H/O pre-eclampsia in prior , currently [facility]* Diagnosis 30 weeks gestation of Third trimester state, incidental H/O pre-eclampsia in prior , currently Gestational diabetes mellitus (GDM), antepartum, gestational diabetes method of control unspecified [facility]* Diagnosis Hypertension affecting in third trimester- Primary 32 weeks gestation of Third trimester state, incidental documented in this encounter [facility] Summary Purpose Family History No Family History Records FoundNo Family History Records Found Advance Directives No Advanced Directives Records FoundNo Advanced Directives Records Found Additional Source Comments INFORMATION SOURCE (unrecogn ized section and content) DATE CREATED AUTHOR 11/24/2021 Naya bustamante DATE CREATED AUTHOR 'S ORGANIZ ATION 11/02/2024 [facility] EPIC Care Teams (unrecognized sec tion and content) [employer] 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 Relationship Specialty Start Date End Date Sammie Higginbotham DO [address] [place] [address] PCP - [facility] 09/04/23 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 Relationship Specialty Start Date End Date Sammie Higginbotham DO [address] [place] [address] [facility] 09/04/23 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 Relationship Specialty Start Date End Date Neftaly Sammie, DO [address] [place] [address] [facility] 09/04/23 [employer] 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 Relationship Specialty Start Date End Date NeftalyEmmyy, DO [address] [place] [address] PCP [facility] 09/04/23 [employer] 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 Relationship Specialty Start Date End Date Neftaly Sammie, DO [address], [facility] 09/04/23 [employer] 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 Relationship Specialty Start Date End Date Neftaly, Sammie, DO [facility] [address], [facility] 09/04/23 [employer] 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 Relationship Specialty Start Date End Date NeftalyEmmyy, DO [facility] [place] [address] PCP [facility] 09/04/23 [employer] 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 Relationship Specialty Start Date End Date Neftaly, Sammie, DO [facility] [place] [address] PCP [facility] 09/04/23 [employer] 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 Relationship Specialty Start Date End Date Neftaly, Sammie, DO [address] [place] [address] PCP [facility] 09/04/23 [employer] 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 [employer] provides no warranty or guarantee of the accuracy or completeness of information in this document.
[2024-11-13] MEDS: BETAMETHASONE ACE/BETAMETHASONE SOD PHOS 30 MG/5 ML 12 MG IM (11:32)
[2024-11-13 11:37] VITALS: BP 115/82; PULSE 117; TEMP 36.8; O2SAT 97
--- NOTE | 2024-11-13 11:40 | PC.NURSE ---
Bre and 2 children arrive for continued care. Pt to receive dose # 2 of Celestone. Orders placed and medication obtained. Bre denies complaints today, states feels well. VSS and medication given as ordered. Pt tolerates well. To sit for 15 minutes post injection before leaving.
--- NOTE | 2024-11-13 11:57 | PC.NURSE ---
Bre and children leave ambulatory. Denies needs or concerns.
== END 2024-11-13 11:50 | disposition home or self-care (01) ==
LOC: FBCO 11:08 → FBC 11:11
PROVIDERS: Visit Provider Obstetrics & Gynecology
DX: O26.893 Other specified pregnancy related conditions, third trimester (principal); O13.3 Gestational [pregnancy-induced] hypertension without significant proteinuria, third trimester
CPT/HCPCS: 84156; 96372; J0702

== ENCOUNTER 2024-11-13 20:38 | Outpatient (REF) | payer OTHER, SELFPAY ==
--- OUTSIDE RECORDS SUMMARY | 2024-11-13 20:42 | XMS_ITS | CCD ---
Author Organization [facility] CliniSymt Care Team Providers Care Front End Developer Name Role Phone NEFTALY, DR COCHRAN Attending [...] Unavaila ble KARASIPavan, DR LOTT Consulting Unavailable HENSLEY, DR POLLO Gonzalez Consulting Unavailable NEFTALY, DR [...] NONE LISTED Primary Care Unavaila ble NeftalySammie bolanos DO Unavailable SAMMIE HIGGINBOTHAM Attending Unavailable DIYA [...] UA Negative Negative - 4(70) +++ mg/dL [facility] Blood, UA Negative Negative - 50 Dario/mcL [facility] Clarity, UA Clear [facility] re Color, UA Yellow [facility] Glucose, UA Negative Negative - 1999(110) ++++ mg/dL [facility] Interpretation and review of laboratory results Abnormal [facility] re Ketones, UA Positive Negative - 160(16) ++++ mg/dL [facility] Comment on above: 40 Leukocytes, UA Trace Negative - 500+++ Oksana/mcL [facility] Nitrite, UA Negative Negative - Positive [facility] pH, UA 6.5 5 - 9 [facility] e Protein, UA Negative Negative - 1999(20) ++++ mg/dL [facility] Spec Grav, UA 1.005 1 - 1.03 [facility] Urobilinogen, UA 0.2 0.2 - 12 mg/dL [facility] US OB BPP W NON-STRESS on 11-12-2024 [place] [address] Ultrasound Report Signed Patient: JANINA MARTEL MR#: [id number] : 1990 Acct:[id number] Age/Sex: 34 / F ADM Date: 11/12/24 Loc: [facility] 254-[address]: Sammie Higginbotham D.O. Ordering Physician: Sammie Higginbotham D.O. Date of Service: 11/12/24 Procedure(s): US OB BPP w non-stress Accession Number(s): [id number] cc: Sammie Higginbotham D.O.; Physician,Non-Staff M.D. [facility] [place] [id number] Patient Name: JANINA MARTEL MRN: [facility]:[id number] date: 1990 Sex: F Assigned [place] [facility] [facility] [place] Patient Location[place] [facility] [place] Accession/Order Number: [id number] Exam Date: 11/12/2024 12:13 Report Date: 11/12/2024 [...] Long M.D. 11/12/2024 12:14 PM Dictation Location: [place] [address] Electronically authenticated by: [id number] Y Date: 11/12/2024 12:14 Dictated By: Madie Long M.D. Signed By: 11/12/24 1217 DD/ 1214 TD/TT: Plateman: [facility] Radiology, Radiologist, - 11/12/2024 [place] [address] Ultrasound Report Signed Patient: JANINA MARTEL MR#: [id number] : 1990 Acct:[id number] Age/Sex: 34 / F ADM Date: 11/12/24 Loc: [facility] 254-1 Attending : Sammie Higginbotham D.O. Ordering Physician: Sammie Higginbotham D.O. Date of Service: 11/12/24 Procedure(s): US OB BPP w non-stress Accession Number(s): [id number] cc: Sammie Higginbotham D.O.; Physician,Non-Staff [place] [id number] Patient Name: JANINA MARTEL MRN: [facility]:[id number] date: 1990 Sex: F Assigned Patient [place] [facility] [place] Current Patient [place] [facility] [place] Accession/Order Number: [id number] Exam Date: 11/12/2024 12:13 Report Date: 11/12/2024 [...] Long M.D. 11/12/2024 12:14 PM Dictation Location: [place] [address] Electronically authenticated by: [id number] Y Date: 11/12/2024 12:14 Dictated By: Madie Long M.D. Signed By: 11/12/24 1217 DD/ TD/TT: Plateman: [facility] Radiology Study observation (narrative) [facility] US OB BPP W NON-STRESS Ordered By: Radiologist Radiology on 11-12-2024 [employer] Work Phone: US OB FOLLOW UP [...] II, MD, PHD at 30-Oct-2024 11:19:03 PM [facility] Normal Not Available Comment on above: Order Comment: US OB SCAN FOR GROWTH Estimated Date of Delivery: 01/06/25 Gestational Age as of 10/01/2024: 26w1d Urinalysis macro (dipstick) panel (U)on 10-30-2024 Bilirubin, UA Negative Negative - 4(70) +++ mg/dL [facility] Blood, UA Negative Negative - 50 Dario/mcL [facility] [employer] Clarity, UA Clear [facility] re Color, UA Yellow [facility] [employer] Glucose, UA Negative Negative - 2000(110) ++++ mg/dL [facility] Interpretation and review of laboratory results Abnormal [facility] Ketones, UA Negative Negative - 160(16) ++++ mg/dL [facility] Leukocytes, UA Positive Negative - 500+++ Oksana/mcL [facility] Comment on above: small Nitrite, UA Negative Negative - Positive [facility] pH, UA 7 5 - 9 [facility] Protein, UA Negative Negative - 1999(20) ++++ mg/dL [facility] Spec Grav, UA 1.01 1 - 1.03 [facility] Urobilinogen, UA 0.2 0.2 - 12 mg/dL [facility] Urinalysis macro (dipstick) panel (U)on 09-02-2024 Bilirubin, UA Negative Negative - 4(70) +++ mg/dL [facility] Blood, UA Negative Negative - 50 Dario/mcL [facility] Clarity, UA Clear [facility] re Color, UA Yellow [facility] e Glucose, UA Negative Negative - 1999(110) ++++ mg/dL [facility] Interpretation and review of laboratory results Abnormal [facility] Ketones, UA Negative Negative - 160(16) ++++ mg/dL [facility] Leukocytes, UA Positive Negative - 500+++ Oksana/mcL [facility] Comment on above: Large Nitrite, UA Negative Negative - Positive [facility] pH, UA 7 5 - 9 [facility] Protein, UA Negative Negative - 1999(20) ++++ mg/dL [facility] Spec Grav, UA 1.01 1 - 1.03 [facility] Urobilinogen, UA 0.2 0.2 - 12 mg/dL [facility] US OB 14+ WEEKS ANATOMY [...] II, MD, PHD at 22-Aug-2024 08:46:17 AM [facility] Normal Not Available Comment on above: Order Comment: US OB ANATOMY SINGLE W US OB CERVICAL LENGTH Estimated Date of Delivery: 01/06/25 Gestational Age as of 08/05/2024: 18w0d IGP,APTIMA HPV,AGE GDLNon AGE GDLN ACOG TESTING Note . [facility] Comment on above: TESTS RESULT FLAG UN ITS REF RANGE LAB Clinician Provided Cytology Information Source.............Cervix Other.............. No. of containers..01 ThinPrep Vial Age Tawanda GRECO Maria Antonia... 30 FLAG LEGEND: L-Low Normal,H-High Normal,LL-Alert Low,HH-Alert High <-Panic Low,>-Panic High,A-Abnormal,AA-Critical Abnormal Performed at: 01 =[address] [phone] Asha Garza MD, HPV APTIMA Negative Negative [facility] Comment on above: This nucleic acid am plification test detects fourteen high- risk HPV types (16,18,31,33,35,39,45,51,52,56,58,59,66,68) without differentiation. Performed at: =[address] [id number] Carpenter'S Assistant: Asha Garza MD, Phone: [phone] Performed at: [address] [id number] Carpenter'S Assistant: Asha Garza MD, Phone: [phone] IGP, APTIMA HPV, RFX 16/18,45 Note . [facility] Comment on above: TESTS RESULT FLAG UN ITS REF RANGE LAB DIAGNOSIS: 02 NEGATIVE FOR INTRAEPITHELIAL LESION OR MALIGNANCY. Specimen adequacy: 02 Satisfactory for evaluation. Endocervical and/or squamous metaplastic cells (endocervical component) are present. Performed by: 02 Jojo West, Puppy Trainer (ASCP) . 02 Note: Note 02 The [...] <-Panic Low,>-Panic High,A-Abnormal,AA-Critical Abnormal Performed at: [address] [phone] Asha Garza MD, SPATULA-ALONE CERVIX [facility] RECURRENT VAGINITIS (HTRX)on 08-07-2024 ATOPOBIUM VAGINAE 0 [facility] ATOPOBIUM VAGINAE Not detected [facility] BVAB 2,3 (BACTERIAL VAGINOSIS ASSOCIATED BACTERIA 2, 3); MOBILUNCUS SPP 0 [facility] BVAB 2,3 (BACTERIAL VAGINOSIS ASSOCIATED BACTERIA 2, 3); MOBILUNCUS SPP Not detected [facility] ELODIA ALBICANS, PARAPSILOSIS, TROPICALIS 0 [facility] ELODIA ALBICANS, PARAPSILOSIS, TROPICALIS Not detected [facility] EL[place] GLABRATA 0 [facility] [place] GLABRATA Not detected [facility] [place] KRUSEI 0 [facility] ELODIA KRUSEI Not detected [facility] ltare CHLAMYDIA TRACHOMATIS 0 [facility] CHLAMYDIA TRACHOMATIS Not detected [facility] GARDNERELLA VAGINALIS 0 [facility] GARDNERELLA VAGINALIS Not detected [facility] MEGASPHAERA (TYPES 1, 2) 0 [facility] MEGASPHAERA (TYPES 1, 2) Not detected [facility] MYCOPLASMA GENITALIUM 0 [facility] MYCOPLASMA GENITALIUM Not detected [facility] NEISSERIA GONORRHOEAE 0 [facility] NEISSERIA GONORRHOEAE Not detected [facility] TRICHOMONAS VAGINALIS 0 [facility] TRICHOMONAS VAGINALIS Not detected [facility] GLUCOSE TOLERANCE 3 HOURon 0 08-03-2024 GLUCOSE TOLERANCE 3 HOUR mg/dL [facility] Comment on above: GLU FAST 94 (<95) Co l: 08/03/24 0809 GLU 1HR 163 (<180) Col: 08/03/24 0912 GLU 2HR 114 (<155) Col: 08/03/24 1012 GLU 3HR 109 (<140) Col: 08/03/24 1112 [facility] GLUCOSE 1 HOURon 07-27-2024 Glucose [Mass/Vol] 151 mg/dL High NINF - 13 0 mg/dL [facility] Interpretation and review of laboratory results Abnormal [facility] re [facility] ALL CBC WITH AUTO DIFFon BASOPHILS ABSOLUTE AUTO 0 [facility] Basophils/100 WBC (Bld) 0.3 % 0.2 - 2.0 % [facility] Eosinophils/100 WBC (Bld) 0.2 % Low 0.9 - 7.0 % [facility] Erythrocyte distribution width (RBC) [Ratio] 13.5 % 11.0 - 15.0 % [facility] Hematocrit (Bld) [Volume fraction] 36 % 36.0 - 48.0 % [facility] Hemoglobin (Bld) [Mass/Vol] 12.5 g/dL 12.0 - 16.0 g/dL [facility] IMMATURE GRANULOCYTES ABS AUTO 0.05 High [facility] Immature granulocytes/100 WBC (Bld) 0.4 % 0.0 - 0.5 % [facility] Interpretation and review of laboratory results Abnormal [facility] LYMPHOCYTES ABSOLUTE AUTO 2.1 [facility] Lymphocytes/100 WBC (Bld) 16 % Low 20.5 - 60.0 % [facility] MCH (RBC) [Entitic mass] 30.1 pg 26.7 - 34.0 pg [facility] MCHC (RBC) [Mass/Vol] 34.7 g/dL 29.9 - 35.2 g/dL [facility] MCV (RBC) [Entitic vol] 86.7 fL 81.0 - 99.0 fL [facility] MONOCYTES ABSOLUTE AUTO 0.9 High [facility] Monocytes/100 WBC (Bld) 6.6 % 1.7 - 12.0 % [facility] NEUTROPHILS ABSOLUTE AUTO 9.9 High [facility] Neutrophils/100 WBC (Bld) 76.5 % High 43.0 - 75.0 % [facility] Platelet mean volume (Bld) [Entitic vol] 10.7 fL 9.5 - 13.5 fL [facility] TBH EO # 0 [facility] TBH PLT 276 [facility] TB RBC 4.15 Low [facility] TBH WBC 12.9 High [facility] HCG ( test) Ql (U)o n 06-07-2024 Interpretation and review of laboratory results Abnormal [facility] re Preg Test, Ur Positive Negative [facility] US OB TRANSVAGINALon 025 US [...] x 4.7 cm (8 weeks, 3 days). [place] rump length is 2.5 cm (9 weeks, [...] UA Negative Negative - 4(70) +++ mg/dL [facility] Blood, UA Negative Negative - 50 Dario/mcL [facility] Clarity, UA Clear [facility] [employer] re Color, UA Yellow [facility] Glucose, UA Negative Negative - 1999(110) ++++ mg/dL [facility] Interpretation and review of laboratory results Normal [facility] re Ketones, UA Negative Negative - 160(16) ++++ mg/dL [facility] Leukocytes, UA Negative Negative - 500+++ Oksana/mcL [facility] Nitrite, UA Negative Negative - Positive [facility] pH, UA 5.5 5 - 9 [facility] [employer] Protein, UA Negative Negative - 1999(20) ++++ mg/dL [facility] Spec Grav, UA 1.015 1 - 1.03 [facility] Urobilinogen, UA 0.2 0.2 - 12 mg/dL [facility] TBH PREG QUANT HCGon 024 HCG QUANTITATIVE <1 mIU/mL [facility]a lthcare Comment on above: 5-50 0.2-1 WEEK 50-500 1-2 WEEKS 100-5,000 2-3 WEEKS 500-10,000 3-4 WEEKS 1,000-50,000 4-5 WEEKS 10,000-100,000 5-6 WEEKS 15,000-200,000 6-8 WEEKS 10,000-100,000 2-3 MONTHS [facility] TBH PREG QUANT HCGon 024 [...] to 29on 09-22-2021 . . Normal [facility] Comment on above: Performed By: #### [id number] #### [facility] [address] [place] [address] Dr. Yariel Huynh Age Gdln ACOG Testing - Normal [facility] Comment on above: Performed By: #### [id number] #### [facility] [address] [place] [address] [address] Yariel Huynh DIAGNOSIS: Comment Normal [facility] Comment on above: Result Comment: NEGA TIVE FOR INTRAEPITHELIAL LESION OR MALIGNANCY. Performed By: #### 4 [id number] #### [facility] [address] [place] [address] Dr. Yariel Huynh Methodology: Comment Normal [facility] Comment on above: Result Comment: This liquid based ThinPrep(R) pap test was screened with the use of an image guided system. Performed By: #### [id number] #### [facility] [address] [place] [address] Dr. Yariel Huynh Note: Comment Normal [facility] Comment on above: Result Comment: The Pap smear is a screening test designed to aid in the detection of premalignant and malignant conditions of the uterine cervix. It is not a diagnostic procedure and should not be used as the sole means of detecting cervical cancer. Both false-positive and false-negative reports do occur. . Performed By: #### [id number] #### [facility] [address] [place] [address] Dr. Yariel Huynh Performed by: Comment Normal [facility] Comment on above: Result Comment: Carole Lee Puppy Trainer (ASCP) Performed By: #### 4 [id number] #### [facility] [address] [place] [address] Dr. Yariel Huynh Reflex Criteria: Comment Normal [facility] Comment on above: Result Comment: The HPV DNA reflex criteria were not met with this specimen result therefore, no HPV testing was performed. . Performed By: #### 4 [id number] #### [facility] [address] [place] [address] Dr. Yariel Huynh Specimen adequacy: Comment Normal [facility] Comment on above: Result Comment: Sati sfactory for evaluation. Endocervical and/or squamous metaplastic cells (endocervical component) are present. Performed By: #### 4 [id number] #### [facility] [address] [place] [address] Dr. Yariel Huynh RUBELLA AB IGGon 12-10-2020 Rubella Antibodies, IgG 1.46 index Normal Immune >0.99 [facility] Comment on above: Result Comment: Non- immune <0.90 Equivocal 0.90 - 0.99 Immune >0.99 Performed By: #### R UBIGG #### [facility] [address] [place] [address] Clyde Ramachandran CBC AUTO DIFFon 12-09-2020 BASO # 0.1 103/ul Normal 0.0-0.1 [facility] Comment on above: Performed By: #### 4 [id number] #### [facility] [address] [place] [address] Dr. Yariel Huynh Basophils/100 WBC (Bld) 0.3 % Normal 0.2-2.0 [facility] Comment on above: Performed By: #### 4 [id number] #### [facility] [address] [place] [address] Dr. Yariel Huynh EO # 0.0 103/ul Normal 0.0-0.7 [facility] Comment on above: Performed By: #### 4 [id number] #### [facility] [address] [place] [address] Dr. Yariel Huynh Eosinophils/100 WBC (Bld) 0.1 % Critically low 0.9-7.0 [facility] Comment on above: Performed By: #### 4 [id number] #### [facility] [address] [place] [address] Dr. Yariel Hyunh Erythrocyte distribution width (RBC) [Ratio] 13.9 % Normal 11.0-15.0 [facility] Comment on above: Performed By: #### 4 [id number] #### [facility] [address] [place] [address] Dr. Yariel Huynh Hematocrit (Bld) [Volume fraction] 29.5 % Critically low 36.0-48.0 [facility] Comment on above: Performed By: #### 4 [id number] #### [facility] [address] [place] [address] Dr. Yariel Huynh Hemoglobin (Bld) [Mass/Vol] 9.3 g/dL Critically low 12.0-16.0 [facility] Comment on above: Performed By: #### 4 [id number] #### [facility] [address] [place] [address] Dr. Yariel Huynh IG # 0.08 10e3/ul Critically high 0.00-0.03 [facility] Comment on above: Performed By: #### 4 [id number] #### [facility] [address] [place] [address] [address] Yariel Huynh IG % 0.5 % Normal 0.0-0.5 [facility] Comment on above: Performed By: #### 4 [id number] #### [facility] [address] [place] [address] [address] Yariel Huynh LYMPH # 1.7 103/ul Normal 1.2-3.8 [facility] Comment on above: Performed By: #### 4 [id number] #### [facility] [address] [place] [address] [address] Yariel Huynh Lymphocytes/100 WBC (Bld) 10.8 % Critically low 20.5-60.0 [facility] Comment on above: Performed By: #### 4 [id number] #### [facility] [address] [place] [address] [address] Yariel Huynh MANUAL DIFF REQ NO Normal [facility] Comment on above: Performed By: #### 4 [id number] #### [facility] [address] [place] [address] [address] Yariel Huynh MCH (RBC) [Entitic mass] 26.2 pg Critically low 26.7-34.0 [facility] Comment on above: Performed By: #### 4 [id number] #### [facility] [address] [place] [address] [address] Yariel Huynh MCHC (RBC) [Mass/Vol] 31.5 g/dL Normal 29.9-35.2 [facility] Comment on above: Performed By: #### 4 [id number] #### [facility] [address] [place] [address] [address] Yariel Huynh MCV (RBC) [Entitic vol] 83.1 fL Normal 81.0-99.0 [facility] Comment on above: Performed By: #### 4 [id number] #### [facility] [address] [place] [address] [address] Yariel Huynh MONO # 0.8 103/ul Normal 0.3-0.8 [facility] Comment on above: Performed By: #### 4 [id number] #### [facility] [address] [place] [address] [address] Yariel Huynh Monocytes/100 WBC (Bld) 5.2 % Normal 1.7-12.0 [facility] Comment on above: Performed By: #### 4 [id number] #### [facility] [address] [place] [address] [address] Yariel Huynh NEUT # 12.8 103/ul Critically high 1.4-6.5 [facility] Comment on above: Performed By: #### 4 [id number] #### [facility] [address] [place] [address] Dr. Yariel Huynh Neutrophils/100 WBC (Bld) 83.1 % Critically high 43.0-75.0 [facility] Comment on above: Performed By: #### 4 [id number] #### [facility] [address] [place] [address] Dr. Yariel Huynh Platelet mean volume (Bld) [Entitic vol] 12.6 fL Normal 9.5-13.5 [facility] Comment on above: Performed By: #### 4 [id number] #### [facility] [address] [place] [address] Dr. Yariel Huynh PLT 203 103/ul Normal 150-450 [facility] Comment on above: Performed By: #### 4 [id number] #### [facility] [address] [place] [address] Dr. Yariel Huynh RBC 3.55 106/ul Critically low 4.20-5.40 [facility] Comment on above: Performed By: #### 4 [id number] #### [facility] [address] [place] [address] Dr. Yariel Huynh WBC 15.4 103/ul Critically high 4.0-11.0 [facility] Comment on above: Performed By: #### 4 [id number] #### [facility] [address] [place] [address] Dr. Yariel Huynh ASYMPTOMATIC COVID-19 ANTIGE Non 07-06-2021 EUA Statement SEE BELOW Normal [facility] Comment on above: Result Comment: This [...] is revoked sooner. Performed By: #### 4 [id number] #### [facility] [address] [place] [address] Dr. Yariel Huynh SARS-CoV-2 (COVID-19) RNA ESTEBAN+probe Ql (Unsp spec) Negative Normal NEGATIVE [facility] Comment on above: Result Comment: Nega tive results are presumptive. They do not preclude infection and should not be used as the sole basis for treatment decisions. Additional confirmatory testing by a molecular method should be considered. Performed By: #### 4 [id number] #### [facility] [address] [place] [address] Dr. Yariel Huynh BUNon 12-08-2020 Urea nitrogen [Mass/Vol] 15.0 mg/dL Normal 7.0-17.0 [facility] Comment on above: Performed By: #### 4 [id number] #### [facility] [address] [place] [address] Dr. Yariel Huynh CBC AUTO DIFFon 12-08-2020 BASO # 0.0 103/ul Normal 0.0-0.1 [facility] Comment on above: Performed By: #### 4 [id number] #### [facility] [address] [place] [address] Dr. Yariel Huynh Basophils/100 WBC (Bld) 0.3 % Normal 0.2-2.0 [facility] Comment on above: Performed By: #### 4 [id number] #### [facility] [address] [place] [address] Dr. Yariel Huynh EO # 0.0 103/ul Normal 0.0-0.7 [facility] Comment on above: Performed By: #### 4 [id number] #### [facility] [address] [place] [address] Dr. Yariel Huynh Eosinophils/100 WBC (Bld) 0.4 % Critically low 0.9-7.0 [facility] Comment on above: Performed By: #### 4 [id number] #### [facility] [address] [place] [address] Dr. Yariel Huynh Erythrocyte distribution width (RBC) [Ratio] 13.8 % Normal 11.0-15.0 [facility] Comment on above: Performed By: #### 4 [id number] #### [facility] [address] [place] [address] Dr. Yariel Huynh Hematocrit (Bld) [Volume fraction] 31.8 % Critically low 36.0-48.0 [facility] [facility] Comment on above: Performed By: #### [id number] #### [facility] [address] [place] [address] Dr. Yariel Huynh Hemoglobin (Bld) [Mass/Vol] 10.1 g/dL Critically low 12.0-16.0 [facility] Comment on above: Performed By: #### [id number] #### [facility] [address] [place] [address] Dr. Yariel Huynh IG # 0.07 10e3/ul Critically high 0.00-0.03 [facility] Comment on above: Performed By: #### 4 [id number] #### [facility] [address] [place] [address] Dr. Yariel Huynh IG % 0.7 % Critically high 0.0-0.5 [facility] Comment on above: Performed By: #### 4 [id number] #### [facility] [address] [place] [address] Dr. Yariel Huynh LYMPH # 2.3 103/ul Normal 1.2-3.8 [facility] Comment on above: Performed By: #### 4 [id number] #### [facility] [address] [place] [address] Dr. Yariel Huynh Lymphocytes/100 WBC (Bld) 22.7 % Normal 20.5-60.0 [facility] Comment on above: Performed By: #### [id number] #### [facility] [address] [place] [address] Dr. Yariel Huynh MANUAL DIFF REQ NO Normal [facility] Comment on above: Performed By: #### [id number] #### [facility] [address] [place] [address] Dr. Yariel Huynh MCH (RBC) [Entitic mass] 26.7 pg Normal 26.7-34.0 [facility] Comment on above: Performed By: #### 4 [id number] #### [facility] [address] [place] [address] Dr. Yariel Huynh MCHC (RBC) [Mass/Vol] 31.8 g/dL Normal 29.9-35.2 [facility] Comment on above: Performed By: #### 4 [id number] #### [facility] [address] [place] [address] Dr. Yariel Huynh MCV (RBC) [Entitic vol] 84.1 fL Normal 81.0-99.0 [facility] Comment on above: Performed By: #### 4 [id number] #### [facility] [address] [place] [address] Dr. Yariel Huynh MONO # 0.6 103/ul Normal 0.3-0.8 [facility] Comment on above: Performed By: #### 4 [id number] #### [facility] [address] [place] [address] Dr. Yariel Huynh Monocytes/100 WBC (Bld) 6.3 % Normal 1.7-12.0 [facility] Comment on above: Performed By: #### 4 [id number] #### [facility] [address] [place] [address] Dr. Yariel Huynh NEUT # 7.0 103/ul Critically high 1.4-6.5 [facility] Comment on above: Performed By: #### 4 [id number] #### [facility] [address] [place] [address] Dr. Yariel Huynh Neutrophils/100 WBC (Bld) 69.6 % Normal 43.0-75.0 [facility] Comment on above: Performed By: #### 4 [id number] #### [facility] [address] [place] [address] Dr. Yariel Huynh Platelet mean volume (Bld) [Entitic vol] 12.9 fL Normal 9.5-13.5 [facility] Comment on above: Performed By: #### 4 [id number] #### [facility] [address] [place] [address] Dr. Yariel Huynh PLT 193 103/ul Normal 150-450 [facility] Comment on above: Performed By: #### 4 [id number] #### [facility] [address] [place] [address] Dr. Yariel Huynh RBC 3.78 106/ul Critically low 4.20-5.40 [facility] Comment on above: Performed By: #### 4 [id number] #### [facility] [address] [place] [address] Dr. Yariel Huynh WBC 10.1 103/ul Normal 4.0-11.0 [facility] Comment on above: Performed By: #### 4 [id number] #### [facility] [address] [place] [address] Dr. Yariel Huynh CREATININEon 12-08-2020 Creatinine [Mass/Vol] 0.80 mg/dL Normal 0.52-1.04 [facility] Comment on above: Performed By: #### L DH, URIC, AST, ALT, BUN, CREA #### [facility] [address] [place] [address] Clyde Ramachandran EGFR-AF MACANESE >60 Normal >=60 [facility] Comment on above: Performed By: #### L DH, URIC, AST, ALT, BUN, CREA #### [facility] [address] [place] [address] Clyde Ramachandran EGFR-NON AF MACANESE >60 Normal >=60 [facility] Comment on above: Performed By: #### L DH, URIC, AST, ALT, BUN, CREA #### [facility] [address] [place] [address] Clyde Ramachandran DRUG SCREEN RAPID (URINE)on 12-08-2020 AMP Negative Normal NEGATIVE [facility] Comment on above: Performed By: #### 4 [id number] #### [facility] [address] [place] [address] Dr. Yariel Huynh BAR Negative Normal NEGATIVE [facility] Comment on above: Performed By: #### 4 [id number] #### [facility] [address] [place] [address] Dr. Yariel Huynh BUP Negative Normal NEGATIVE [facility] Comment on above: Performed By: #### 4 [id number] #### [facility] [address] [place] [address] Dr. Yariel Huynh BZO Negative Normal NEGATIVE [facility] Comment on above: Performed By: #### 4 [id number] #### [facility] [address] [place] [address] Dr. Yariel Huynh ROSA Negative Normal NEGATIVE [facility] Comment on above: Performed By: #### 4 [id number] #### [facility] [address] [place] [address] Dr. Yariel Huynh CUT-OFFS SEE BELOW Normal [facility] Comment on above: Result Comment: AMP (Amphetamine): 500ng/mL, BAR (Barbituates): 200 ng/mL, BZO (Benzodiazepines): 150 ng/mL, BUP (Buprenorphine): 10 ng/mL, ROSA (Cocaine): 150 ng/mL, mAMP (Methamphetamine): 500 ng/mL, MTD (Methadone): 200 ng/mL, OPI (Opiates): 100 ng/mL, OXY (Oxycodone): 100 ng/mL, PCP (Phencyclidine): 25 ng/mL, PPX (Propoxyphene): 300 ng/mL, THC (Cannabinoids): 50 ng/mL, TCA (Trycyclic Antidepressants): 300 ng/mL Performed By: #### 4 [id number] #### [facility] [address] [place] [address] Dr. Yariel Huynh DRUG CUT HEADER DRUG CLASS TEST SYSTEM CUT-OFF CONCENTRATIONS ARE FOLLOWS: Normal [facility] Comment on above: Performed By: #### 4 [id number] #### [facility] [address] [place] [address] Dr. Yariel Huynh mAMP Negative Normal NEGATIVE [facility] Comment on above: Performed By: #### 4 [id number] #### [facility] [address] [place] [address] Dr. Yariel Huynh MTD Negative Normal NEGATIVE [facility] Comment on above: Performed By: #### 4 [id number] #### [facility] [address] [place] [address] Dr. Yariel Huynh OPI Negative Normal NEGATIVE [facility] Comment on above: Performed By: #### 4 [id number] #### [facility] [address] [place] [address] Dr. Yariel Huynh OXY Negative Normal NEGATIVE [facility] Comment on above: Performed By: #### 4 [id number] #### [facility] [address] [place] [address] Dr. Yariel Huynh PCP Negative Normal NEGATIVE [facility] Comment on above: Performed By: #### 4 [id number] #### [facility] [address] [place] [address] Dr. Yariel Huynh PPX Negative Normal NEGATIVE [facility] Comment on above: Performed By: #### 4 [id number] #### [facility] [address] [place] [address] Dr. Yariel Huynh TCA Negative Normal NEGATIVE [facility] Comment on above: Performed By: #### 4 [id number] #### [facility] [address] [place] [address] Dr. Yariel Huynh THC Negative Normal NEGATIVE [facility] Comment on above: Performed By: #### 4 [id number] #### [facility] [address] [place] [address] Dr. Yariel Huynh LDHon 12-08-2020 LDH 163 U/L Normal 122-222 [facility] Comment on above: Performed By: #### L DH, URIC, AST, ALT, BUN, CREA #### [facility] [address] [place], [place] [id number] Clyde Ramachandran SGOTon 12-08-2020 AST [Catalytic activity/Vol] 15 U/L Normal 14-36 [facility] Comment on above: Performed By: #### L DH, URIC, AST, ALT, BUN, CREA #### [facility] [address] [place] [address] Clyde Ramachandran SGPTon 12-08-2020 ALT [Catalytic activity/Vol] 12 U/L Normal 9-52 [facility] Comment on above: Performed By: #### L DH, URIC, AST, ALT, BUN, CREA #### [facility] [address] [place] [address] Clyde Madie TYPE AND SCREENon 12-08-2020 TYPE AND SCREEN Negative Normal [facility] Comment on above: Performed By: #### T NS #### [facility] [address] [place] [address] Clyde Ramachandran URIC ACID SERUMon 12-08-2020 Urate [Mass/Vol] 5.0 mg/dL Normal 2.5-6.2 [facility] Comment on above: Performed By: #### L DH, URIC, AST, ALT, BUN, CREA #### [facility] [address] [place], [place] [id number] Clyde Ramachandran US PREG BIOPHY W NON [...] PABLO Date: 2020-12-08 08:45 Normal [facility] US PREG BIOPHY W NON STRESSo [...] CORTES Date: 2020-12-01 10:52 Normal [facility] Vital Signs Date Time Vital Sign Value Performing Clinician Roxann torres 11-13-2024 10:28-0400 Body weight 78.65 kg Diya GEE Work Phone: [facility] 11-13-2024 10:28-0400 Diastolic blood pressure 78 mm[Hg] Diya GEE Work Phone: [facility] 11-13-2024 10:28-0400 Systolic blood pressure 130 mm[Hg] Diya GEE Work Phone: [facility] 10-30-2024 10:31-0400 Body weight 78.53 kg Sammie Neftaly DO Work Phone: [facility] 10-30-2024 10:31-0400 Diastolic blood pressure 78 mm[Hg] Sammie Neftaly DO Work Phone: [facility] 10-30-2024 10:31-0400 Systolic blood pressure 120 mm[Hg] Sammie Neftaly DO Work Phone: [facility] 10-01-2024 09:38-0400 Body weight 75.48 kg Lin Sellers NP Work Phone: [facility] 10-01-2024 09:38-0400 Diastolic blood pressure 76 mm[Hg] Lin Sellers INVESTMENT ANALYST Work Phone: [facility] 10-01-2024 09:38-0400 Systolic blood pressure 120 mm[Hg] Lin Sellers INVESTMENT ANALYST Work Phone: [facility] 09-02-2024 09:46-0400 Body weight 71.85 kg Sammie Neftaly DO Work Phone: [facility] 09-02-2024 09:46-0400 Diastolic blood pressure 82 mm[Hg] Sammie Neftaly DO Work Phone: [facility] 09-02-2024 09:46-0400 Systolic blood pressure 122 mm[Hg] Sammie Neftaly DO Work Phone: [facility] 08-05-2024 09:52-0500 Body weight 68.49 kg Diya GEE Work Phone: [facility] 08-05-2024 09:52-0500 Diastolic blood pressure 78 mm[Hg] Diya GEE Work Phone: [facility] 08-05-2024 09:52-0500 Systolic blood pressure 124 mm[Hg] Diya GEE Work Phone: [facility] 07-08-2024 09:52-0500 Body weight 67.31 kg Sammie Neftaly DO Work Phone: [facility] 07-08-2024 09:52-0500 Diastolic blood pressure 70 mm[Hg] Sammie Neftaly DO Work Phone: [facility] 07-08-2024 09:52-0500 Systolic blood pressure 118 mm[Hg] Sammie Neftaly DO Work Phone: [facility] 06-07-2024 09:47-0500 Body weight 66.22 kg Noms Nurse [facility] 06-07-2024 09:47-0500 Diastolic blood pressure 72 mm[Hg] Noms Nurse [facility] 06-07-2024 09:47-0500 Systolic blood pressure 122 mm[Hg] Noms Nurse [facility] Encounters Encounter Date Encounter Type Care [...] 10-01-2024 End: 10-01-2024 Bamboo flowsheet Lin Sellers INVESTMENT ANALYST Work Phone: [facility] Start: 10-01-2024 End: 10-01-2024 Bamboo flowsheet Lin Sellers INVESTMENT ANALYST Work Phone: [facility] Start: 10-01-2024 [...] Bamboo flowsheet Sammie Neftaly DO Work Phone: [facility] Start: 09-02-2024 End: 09-02-2024 Office outpatient visit 15 minutes Sammie Neftaly DO Work Phone: [facility] Comment on above: Second trimester pre gnancy; 22 weeks gestation of ; Diabetes mellitus screening Start: 09-02-2024 End: 09-02-2024 ambulatory SAMMIE NEFTALY Not Available Start: 08-21-2024 End: 08-21-2024 ambulatory SAMMIE NEFTALY Not Available Start: 08-05-2024 End: 08-05-2024 Bamboo flowsheet Diya GEE Work Phone: [facility] Start: 08-05-2024 End: 08-08-2024 Bamboo flowsheet Diya GEE Work Phone: [facility] Start: 08-05-2024 End: 08-08-2024 Clinisync Result Encounter Diya GEE Work Phone: [facility] External Department Unsolicited Start: 08-05-2024 End: 08-07-2024 External Result Encounter Diya GEE Work Phone: [facility] External Department Unsolicited Start: 08-05-2024 End: 08-05-2024 Office outpatient visit 15 minutes Diya GEE Work Phone: [facility] Comment on above: Well woman [...] Screening for malign ant neoplasm of cervix [facility] Start: 03-15-2028 Screening for malign ant neoplasm of cervix [facility] Start: 02-03-2025 Influenza vaccination Influenz a Vaccine (Season Ended) [facility] Start: 11-13-2024 End: 11-13-2024 Patient encounter procedure [facility] Comment on above: Arrived Start: 10-30-2024 End: 05-02-2025 US biophysical profile w non stress test US biophysical profile w non stress test Imaging Routine 30 weeks gestation of Third trimester H/O pre-eclampsia in prior , currently Gestational diabetes mellitus (GDM), antepartum, gestational diabetes method of control unspecified Expected: 10/30/2024 (Approximate), Expires: 05/02/2025 [facility] Work Phone: Comment on above: Expected: 10/30/2024 (Approximate), Expires: 05/02/2025 Start: 10-01-2024 End: 01-31-2025 US for US OB follow up transabdominal approach Imaging Routine H/O pre-eclampsia in prior , currently Expected: 10/01/2024, Expires: 01/31/2025 [facility] Work Phone: Comment on above: Expected: [...] mellitus screening Expected: 09/02/2024 (Approximate), Expires: 09/02/2025 [facility] Comment on above: Expected: 09/02/2024 (Approximate), Expires: 09/02/2025 Start: 09-02-2024 End: 09-02-2024 Patient encounter procedure [facility] Comment on above: Arrived Start: 08-21-2024 End: 08-21-2024 Professional / ancillary services management 08/21/2024 9:00 AM EDT Ancillary Procedure [facility] [address] [place] [address] [place] [id number] [facility] Start: 08-05-2024 End: 09-05-2024 [...] gestational age Expected: 06/07/2024 (Approximate), Expires: 06/07/2025 [facility] Comment on above: Expected: 06/07/2024 (Approximate), Expires: 06/07/2025 Start: 06-07-2024 End: 06-07-2025 Blood type and Indirect antibody screen panel - Blood Type and screen Lab Routine Missed menses , unspecified gestational age Expected: 06/07/2024 (Approximate), Expires: 06/07/2025 [facility] Work Phone: Comment on above: Expected: 06/07/2024 (Approximate), Expires: 06/07/2025 Start: 06-07-2024 End: 06-07-2025 Drugs of abuse panel - Urine by Screen method Rapid drug screen, urine Lab Routine , unspecified gestational age Encounter for supervision of normal first in first trimester Expected: 06/07/2024 (Approximate), Expires: 06/07/2025 [facility] Comment on above: Expected: 06/07/2024 (Approximate), Expires: 06/07/2025 Start: 04-19-2024 End: 04-19-2024 ambulatory 04/19/2024 10:00 AM EST Initial [facility] [address] [id number] [facility] Start: 04-19-2024 End: 04-19-2024 Professional / ancillary services management 04/19/2024 9:30 AM EST Ancillary Procedure [facility] [address] [place] [address] [facility] Start: 02-04-2024 Influenza vaccination Influenza Vacc ine (#1) [facility] Start: 2013 Screening for malign ant neoplasm of cervix Pap Smear [facility] Bacteria identified in Urine by Culture Urine culture Microbiology Routine Missed menses Ordered: 06/07/2024 [facility] Comment on above: Ordered: 06/07/2024 CBC W Auto Different ial panel - Blood CBC and differential Lab Routine Missed menses , unspecified gestational age Ordered: 06/07/2024 [facility] Comment on above: Ordered: 06/07/2024 CHLAMYDIA TRACHOMATI S (GENITO/STI) CHLAMYDIA TRACHOMATIS (GENITO/STI) Lab Routine Exposure to STD Ordered: 08/05/2024 [facility] Comment on above: Ordered: 08/05/2024 Cytology Cervical or vaginal smear or scraping study Pap Smear Pathology and Cytology Routine Well woman exam with routine gynecological exam Ordered: 08/05/2024 [facility] Comment on above: Ordered: 08/05/2024 Hemoglobin A1c/Hemoglobin.total in Blood Hemoglobin A1c Lab Routine Missed menses , unspecified gestational age Ordered: 06/07/2024 [facility] Comment on above: Ordered: 06/07/2024 Hepatitis B virus surface Ag [Presence] in Serum or Plasma by Immunoassay Hepatitis B surface antigen Lab Routine Missed menses , unspecified gestational age Ordered: 06/07/2024 [facility] Comment on above: Ordered: 06/07/2024 Hepatitis C virus Ab [Presence] in Serum or Plasma by Immunoassay Hepatitis C antibody Lab Routine Missed menses , unspecified gestational age Ordered: 06/07/2024 [facility] Comment on above: Ordered: 06/07/2024 HIV-1/HIV-2 antigen/antibody combination immunoassay HIV-1 and HIV-2 antibodies Lab Routine Missed menses , unspecified gestational age Ordered: 06/07/2024 [facility] Comment on above: Ordered: 06/07/2024 Human papilloma viru s DNA [Presence] in Unspecified specimen by Probe with amplification HPV DNA probe, amplified Microbiology Routine Well woman exam with routine gynecological exam Ordered: 08/05/2024 [facility] Comment on above: Ordered: 08/05/2024 Neisseria gonorrhoea e DNA [Presence] in Unspecified specimen by ESTEBAN with probe detection Neisseria gonorrhea DNA probe, direct Lab Routine Exposure to STD Ordered: 08/05/2024 [facility] Comment on above: Ordered: 08/05/2024 Reagin Ab [Presence] in Serum by RPR RPR Lab Routine Missed menses , unspecified gestational age Ordered: 06/07/2024 [facility] Comment on above: Ordered: 06/07/2024 Rubella antibody, IgG Rubella an tibody, IgG Lab Routine Missed menses , unspecified gestational age Ordered: 06/07/2024 [facility] Comment on above: Ordered: 06/07/2024 SURESWAB(R) ADVANCED VAGINITIS PLUS, TMA SURESWAB(R) ADVANCED VAGINITIS PLUS, TMA Pathology and Cytology Routine Exposure to STD Ordered: 08/05/2024 [facility] Work Phone: Comment on above: Ordered: 08/05/2024 Immunizations Immunization Date Immunization Notes Care Provider [facility] 05-09-2019 influenza virus vacc ine, unspecified formulation Sammie Higginbotham DO Work Phone: [facility] Payers Date Payer Category Payer Private Health Insurance [facility] MEDICAID [id number] 2017 Medicaid [id number] 1992 Unknown [id number]. 593 1992 Unknown [id number] 2.1.175278.3.579.2. 593 1992 Unknown [id number] 2.16.840.1.620849.3.579.2. 593 1992 Unknown [id number] 2.16.840.1.684140.3.579.2. 593 1992 Unknown [id number] 2.16.840.1.063737.3.579.2. 593 1992 Unknown [id number] 2.16.840.1.322205.3.579.2. 593 1992 Unknown [id number] 2.16.840.1.043244.3.579.2. 593 1992 Unknown [id number] 2.16.840.1.333970.3.579.2. 593 1992 Unknown [id number] 2.16.840.1.048709.3.579.2. 593 1992 Unknown [id number] 2.16.840.1.706617.3.579.2. 1259 1992 Unknown [id number] 2.16.840.1.931610.3.579.2. 1259 1992 Unknown [id number] 2.16.840.1.791150.3.579.2. 1259 1992 Unknown [id number] 2.16.840.1.759072.3.579.2. 1259 1992 Unknown [id number] 2.16.840.1.282998.3.579.2. 1259 1992 Unknown [id number] 2.16.840.1.057506.3.579.2. 1259 1992 Unknown [id number] 2.16.840.1.053561.3.579.2. 1259 1992 Unknown [id number] 2.16.840.1.137412.3.579.2. 1259 1992 Unknown [id number] 2.16.840.1.526361.3.579.2. 1259 1959 Self-pay [id number] 1957 Unknown [id number] Social History Date Type Detail Facility Tobacco smoking stat [facility] Tobacco smoking consumption unknown [facility] Start: 1990 Sex assigned at Not [...] meal for a total of 4times daily. [id number] Start: 10-01-2024 End: 11-13-2024 1 each by In Vit ro route Daily Use to check FSBS four times daily [id number] Start: 10-01-2024 End: 11-13-2024 Clinical Notes 06-07-2024 to 11-13-2024 Diya Robles, MARLEN - 11/13/2024 10:30 AM Kelley Maldonado LPN - 10/30/2024 10:50 AM Cooper Sellers NP - 10/01/2024 9:30 AM Cooper Sellers NP - 09/02/2024 9:50 AM EDT Note Date & Type Note Facility 11-13-2024 History of Presen t illness Narrative Reason for Appointment: Patient ID: aJnina Martel is a 34 y.o. female who [...] of: MARLEN Estrada documented in this encounter [facility] 10-30-2024 History of Presen t illness Narrative Reason for Appointment: Patient ID: Janina Martel is a 34 y.o. female who presents for No chief complaint on file. Patient presents today for Return OB appointment. MEDICATIONS Current Outpatient Medications Medication Instructions Alcohol Swabs (Alcohol Prep Pad) 70 % pads 1 Pad, Topical, Daily, Use four times daily to check FSBS. Blood Glucose Monitoring Suppl ([employer]-Active Scaler Glucometer) w/Device kit 1 kit, Does not [...] nursing note reviewed. Exam conducted with a purchasing coordinator present. Vitals: There is no height or [...] Sammie Higginbotham DO documented in this encounter [facility] 10-01-2024 History of Presen t illness Narrative [...] nursing note reviewed. Exam conducted with a purchasing coordinator present. Vitals: There is no height or [...] Lin Sellers NP documented in this encounter [facility] 09-02-2024 History of Presen t illness Narrative Reason for Appointment: Patient ID: Jannia Martel is a 34 y.o. female who [...] nursing note reviewed. Exam conducted with a purchasing coordinator present. Vitals: There is no height or [...] Sammie Higginbotham DO documented in this encounter [facility] 08-05-2024 History of Presen t illness Narrative [...] nursing note reviewed. Exam conducted with a purchasing coordinator present. Vitals: There is no height or [...] of: MARLEN Estrada documented in this encounter [facility] 07-08-2024 History of Presen t illness Narrative [...] Sammie Higginbotham DO documented in this encounter [facility] 06-07-2024 History of Presen t illness Narrative [...] or undercooked meat, and stay away from up health system. Patient has also been advised to not [...] DATE CREATED AUTHOR 'S ORGANIZ ATION 11/02/2024 [facility] dical Specialists EPIC Care Teams (unrecognized sec tion and content) Front End Developer Relationship Specialty Start Date End Date Sammie Higginbotham DO [address] [place] [address] PCP - [facility] 09/04/23 Front End Developer Relationship Specialty Start Date End Date Sammie Higginbotham DO [address] [place] [address] [facility] 09/04/23 Front End Developer Relationship Specialty Start Date End Date Neftaly Sammie, DO [address] [place] [address] [facility] 09/04/23 Front End Developer Relationship Specialty Start Date End Date NeftalyEmmyy, DO [address] [place] [address] [facility] Front End Developer Relationship Specialty Start Date End Date Neftaly Sammie, DO [address], [facility]11 [facility] 09/04/23 Front End Developer Relationship Specialty Start Date End Date Neftaly, Sammie, DO [facility] [address], [facility]11 [facility] 09/04/23 Front End Developer Relationship Specialty Start Date End Date NeftalyEmmyy, DO [facility] [place] [address] [facility] Front End Developer Relationship Specialty Start Date End Date Neftaly, Sammie, DO [facility] [place] [address] [facility]23 Front End Developer Relationship Specialty Start Date End Date Neftaly, Sammie, DO [address] [place] [address] [facility]23 Front End Developer Relationship Specialty Start Date End Date Sammie Higginbotham, [address] [place] [address] PCP - [facility] 09/04/23 Front End Developer Relationship Specialty Start Date End Date Sammie Higginbotham DO [address] [place] [address] PCP - [facility] 09/04/23 Reason for Visit (unrecogniz ed section [...] BE BASED ON THE PRIMARY CLINICAL RECORDS. [facility] [employer] provides no warranty or guarantee of the accuracy or completeness of information in this document.
--- OUTSIDE RECORDS SUMMARY | 2024-11-13 20:42 | XMS_ITS | Encounter Summary ---
Author Organization [facility] Address [id number] [address] [place] [address] Care Team Providers Care Vp Customer Service Name Role Phone No Pcp, No Pcp Primary Care Provider Unavailabl e Reason for Referral * Diagnostic Imaging (Routine) - Closed Specialty Diagnoses / Procedures Referred By Contac t Referred To Contact Maternal and Medicine Diagnoses Abnormal chromosomal and genetic finding on screening of mother History of pre-eclampsia Hx of delivery, currently Procedures [facility] with or without consult Navarro Kee MD Phone: tel: fax: Maternal- Medicine at [place] [address] [place] [address] Phone: tel: fax: Referral ID Status Reason Start Date Expiration Date Visits Re quested Visits Authorized [id number] Closed 08/24/2020 08/24/2021 1 1 Encounter Details Date Type Department Care Team (Late st Contact Info) Description 08/24/2020 Orders Only [facility]aternal- [facility] at [place] [address] [place] [id number] Navarro Kee MD [address] [facility], [address] [place] [id number] Abnormal chromosomal and genetic finding on screening [...] documented as of this encounter Results * [facility] OB FOLLOW-UP, 1 FETUS (09/21/2020 10:31 AM [...] Final 09/21/2020 11:31) PATIENT INFO: ID #: [id number] : [birth year] (30 yrs)(F) Name: JANINA MC Visit Date: 09/21/2020 10:06 HUMMEL PERFORMED BY: Performed By: Margret Hernandez RDMS Attending: Wes Szymanski MD Referred By: Michael Higginbotham DO Ref. Address: [address] [place] [address] [place] [address] Location: Maternal Medicine [facility] SERVICE(S) PROVIDED: OB Follow-up, 1 fetus 71009 Echocardiogram-complete 67087 INDICATIONS: Screening for follow-up survey Z36.2 History [...] Arch: Previously seen SVC: Previously seen Cardiac Flushing: Appears normal Diaphragm: Appears normal 3 Vessel [...] Final 09/21/2020 11:31) PATIENT INFO: ID #: [id number] : [birth year] (30 yrs)(F) Name: JANINA MC Visit Date: 09/21/2020 10:06 HUMMEL PERFORMED BY: Performed By: Margret Hernandez RDMS Attending: Wes Szymanski MD Referred By: Michael Duncan. Address: [address] [place] [address] [place] [address] Location: Maternal Medicine [facility] SERVICE(S) PROVIDED: OB Follow-up, 1 fetus 29501 Echocardiogram-complete 77970 INDICATIONS: Screening for follow-up survey Z36.2 History [...] Arch: Previously seen SVC: Previously seen Cardiac Flushing: Appears normal Diaphragm: Appears normal 3 Vessel [...] trimester documented in this encounter Care Teams Vp Customer Service Relationship Specialty Start Date End Date No Pcp, No Pcp [place] [address] PCP - General Family Medicine 02/26/20 documented as of this encounter
[2024-11-13 22:10] LABS: Total Protein Urine Random 10.8 mg/dL (<=11.9)
[2024-11-13 22:18] LABS: Total Protein 24 Hour Urine 302.4 mg/24hr (<=149.1); Total Volume 24 Hour Urine 2800 mL/24hr
== END 2024-11-13 20:39 | disposition home or self-care (01) ==
LOC: LAB 20:38
PROVIDERS: Visit Provider Obstetrics & Gynecology
DX: O13.9 Gestational [pregnancy-induced] hypertension without significant proteinuria, unspecified trimester (principal)
CPT/HCPCS: 84156

== ENCOUNTER 2024-11-15 11:50 | Outpatient (OUT) | payer OTHER, SELFPAY ==
--- OUTSIDE RECORDS SUMMARY | 2024-11-13 10:30 | XMS_ITS | Encounter Summary ---
Author Organization [facility] Address [address] [facility] [place] [address] Care Team Providers Care Certified Teacher Assistant Name Role Phone Michael Higginbotham DO Unavailable Reason for Visit * Reason Comments Routine Visit Encounter Details Date Type Department Care Team (Latest Contact Info) Description 11/13/2024 10:30 AM EDT Routine [facility] [address] [facility] [place] [address] Diya Villanueva PA [address] [facility] [address] [place], [facility]11 Hypertension affecting in third trimester ([facility]) (Primary Dx); 32 weeks gestation of ([facility]); Third trimester ([facility]) Social History Tobacco Use Types Packs/Day Years [...] Sign Reading Time Taken Comments Blood Pressure 130/78 11/13/2024 10:28 AM EDT Pulse - - Temperature - - Respiratory Rate - - Oxygen Saturation - - Inhaled Oxygen Concentration - - Weight 78.7 kg (173 lb 6.4 oz) 11/13/2024 10:28 AM EDT Height - - Body Mass Index - - documented in this encounter Progress Notes * MARLEN Estrada - 11/13/2024 10:30 AM EDT Reason for Appointment: Patient ID: Bre Martel is a 34 y.o. female who presents for Routine Visit Patient presents today for Return OB appointment. MEDICATIONS Current Outpatient Medications Medication Instructions Alcohol Swabs (Alcohol Prep Pad) 70 % pads 1 Pad, Topical, Daily, Use four times daily to check FSBS. Blood Glucose Monitoring Suppl ([employer]-Mtime Glucometer) w/Device kit 1 kit, Does not apply, Daily, Use four times daily to check FSBS. In the morning prior to breakfast & 1 hour after each meal for a total of 4times daily. Glucose Blood (Blood Glucose Test) strip 1 strip, In Vitro, Daily, Use in the morning prior to breakfast, 1 hour after each meal for a total of 4times daily. labetalol (NORMODYNE) 100 mg, Oral, 2 times daily Lancets Ultra Thin misc 1 each, In Vitro, Daily, Use to check FSBS four times daily ALLERGIES No Known Allergies PROBLEMS Active Ambulatory [...] weight on file to calculate BMI. BP: 130/78 Patient's last menstrual period was 04/01/2024. ASSESSMENT & PLAN ICD-10-CM 1. Hypertension affecting in third trimester O16.3 labetalol (Normodyne) 100 MG tablet 2. 32 weeks gestation of Z3A.32 POCT urinalysis dipstick manually resulted 3. Third trimester Z34.93 POCT urinalysis dipstick manually resulted Return OB: Patient presents today for a routine obstetrics appointment. Patient is currently 32w2d . Patient states she is doing well but has complaints of being tired due to current . Patient has verbalizes frequent movement. labor precautions was discussed/given and patient was instructed to perform kick counts three times a day. Patient will continue to check sugars at home, some elevations of fasting but pt staes she had beenstress eating, we will also start labetolol 100mg bid Orders Placed This Encounter Procedures POCT urinalysis dipstick manually resulted Follow Up: Patient is to return to office in 2 week for routine OB appointment. Documented by MARLEN Estrada on behalf of: MARLEN Estrada documented in this encounter Plan of Treatment Upcoming Encounters Date Type Department Care Team (Late st Contact Info) Description 11/27/2024 11:30 AM EDT Routine [facility] [address] [facility] [place] [phone] Michael Higginbotham, DO [address] [facility] [place] [address] documented as of this encounter Procedures Procedure Name Priority Date/Time Associated Diagnosis Comments POCT URINALYSIS DIPSTICK Routine 11/13/2024 10:33 AM EDT 32 weeks gestation of ([facility]) Third trimester ([facility]) documented in this encounter Results * (ABNORMAL) POCT urinalysis dipstick manually resulted (11/13/2024 10:33 AM EDT) Color, UA Yellow Clarity, UA Clear Glucose, UA Negative Negative - 2000(110) ++++ mg/dL Bilirubin, UA Negative Negative - 4(70) +++ mg/dL Ketones, UA Positive Negative - 160(16) ++++ mg/dL Comment:40 Spec Grav, UA 1.005 1 - 1.03 Blood, UA Negative Negative - 50 Dario/mcL pH, UA 6.5 5 - 9 Protein, UA Negative Negative - 1999(20) ++++ mg/dL Urobilinogen, UA 0.2 0.2 - 12 mg/dL Leukocytes, UA Trace Negative - 500+++ Oksana/mcL Nitrite, UA Negative Negative - Positive Urine 11/13/2024 10:3 3 AM EDT Diya GEE POINT OF CARE TEST ENTER/EDIT OR DERABLES Final Result documented in this encounter Visit Diagnoses Diagnosis Hypertension affecting in third trimester ([facility])- Primary 32 weeks gestation of ([facility]) Third trimester ([facility]) state, incidental documented in this encounter Care Teams Certified Teacher Assistant Relationship Specialty Start Date End Date Michael Higginbotham DO [address] [place] [address] PCP - [facility] 09/04/23 documented as of this encounter
[2024-11-15] VITALS (10 sets, daily range): BP systolic 121–156; BP diastolic 71–94; PULSE 91–118
--- OUTSIDE RECORDS SUMMARY | 2024-11-15 11:51 | XMS_ITS | Encounter Summary ---
Author Organization [facility] Address [address] [facility] [place] [address] Care Team Providers Care Artist Color Separation Name Role Phone Michael Higginbotham DO Unavailable Encounter Details Date Type Department Care Team (Late st Contact Info) Description 11/15/2024 Telephone [facility] OB [address] [place] [address] [place] [address] Cordelia Green LPN Social History Tobacco Use Types Packs/Day Years Used Date Smoking Tobacco: Never Assessed Estimated Date of Delivery Comme nts Yes 01/06/2025 Based on last me nstrual period of 04/01/2024 Sex and Gender Information Value Date Recorded Sex Assigned at Not on file Legal Sex Female 11:47 PM EDT Gender Identity Not on file Sexual Orientation Not on file documented as of this encounter Miscellaneous Notes * Telephone Encounter - Cordelia Green LPN - 11/15/2024 9:19 AM EDT 11/15/24 @9:05am Patient called and stated that she had started Labetalol yesterday 100mg BID and felt light-headed, chest tightness and short of breath. Patient voiced she was unable to sleep. Patient would like to know if she is able to decreased the dosage in half to get use to medication? Patient request return call. 11/15/24 @9:20am Called patient and discussed concerns. Informed patient that it is recommended to take medication as directed, but if she is not comfortable with the feels she is having with her BP being lowered then she is able to half dosage and increase medication to desired dose I she is more comfortable. Informed patient that if she continues to have chest tightness and pain she should be assessed at ER for workup of underlying issue. PVU and stated that she is not having any symptoms at this time andis scheduled for her NST this morning at [facility] and patient was advised to notify them of any concerns/issues she had. PVU and will reach out to office with frther concerns. Cordelia Winn LPN documented in this encounter Plan of Treatment Upcoming Encounters Date Type Department Care Team (Late st Contact Info) Description 11/27/2024 11:30 AM EDT Routine [facility] [place] [address] [place] [address] Michael Higginbothma DO [address] [place] [address] documented as of this encounter Visit Diagnoses Not on filedocumented in this encounter Care Teams Artist Color Separation Relationship Specialty Start Date End Date Michael Higginbotham DO [address] [place] [address] PCP - [facility] 09/04/23 documented as of this encounter
--- OUTSIDE RECORDS SUMMARY | 2024-11-15 11:51 | XMS_ITS | Encounter Summary ---
Author Organization [facility] Address [address] [place] [address] Care Team Providers Care Domestic Violence Counselor Name Role Phone Michael Higginbotham DO Unavailable Encounter Details Date Type Department Care Team (Late st Contact Info) Description 11/13/2024 Clinis[facility] Result Encounter [facility] External Department Unsolicited Michael Higginbotham, [address] [place], [place] [id number] Social History Tobacco Use Types Packs/Day Years [...] AM EDT Routine [facility] [address] [place] [id number] Michael Higginbotham, [address] [place] [address] documented as of this encounter Procedures Procedure Name Priority Date/Time Associated Diagnosis Comments [facility] TOTAL PROTEIN 24 HOUR URINE Routine 11/13/2024 7:15 PM EDT documented in this encounter Results * (ABNORMAL) [facility] TOTAL PROTEIN 24 HOUR URINE (11/13/2024 7:15 PM EDT) TOTAL PROTEIN URINE RANDOM 10.8 <=11.9 mg/dL [facility] TOTAL VOLUME 24 HOUR URINE 2,800 mL/24hr TBH [facility]H TOTAL PROTEIN 24 HOUR URINE 302.4(H) <=149.1 mg/24hr [facility] 11/13/2024 7:15 PM EDT 11/13/2024 8:54 PM EDT Narrative [facility] - 11/13/2024 10:18 PM EDT us Michael Higginbotham DO [facility] Final Result [facility] documented in this encounter Visit Diagnoses Not on filedocumented in this encounter Care Teams Domestic Violence Counselor Relationship Specialty Start Date End Date Michael Higginbotham DO [address] [place] [address] [place] [address] PCP - [facility] 09/04/23 documented as of this encounter
--- OUTSIDE RECORDS SUMMARY | 2024-11-15 11:51 | XMS_ITS | Encounter Summary ---
Author Organization [facility] Address [address] [facility] [place] [address] Care Team Providers Care Travel Pta Name Role Phone Michael Higginbotham DO Unavailable Encounter Details Date Type Department Care Team (Late st Contact Info) Description 07/01/2024 Abstract [facility] OB [address] [place] [address] Michael Higginbotham [address] [place] [address] Social History Tobacco Use Types Packs/Day Years [...] Description 11/27/2024 11:30 AM EDT Routine [facility] OB [address] [place] [address] Michael Higginbotham, DO [address], [facility]11 documented as of this encounter Visit Diagnoses Not on filedocumented in this encounter Care Teams Travel Pta Relationship Specialty Start Date End Date Michael Higginbotham DO [facility] [address] [place], [place] [id number] PCP - [employer] FLAT CLOTHIER 09/04/23 documented as of this encounter
--- OUTSIDE RECORDS SUMMARY | 2024-11-15 11:51 | XMS_ITS | Clinical Summary ---
Author Organization [employer] Address [id number] [address] [place] [address] Care Team Providers Care Trial Court Justice Name Role Phone No Pcp, No Pcp [...] on file Insurance [employer] Care Teams Trial Court Justice Relationship Specialty Start Date End Date No [place] [address] PCP - General Family Medicine 02/26/20
--- OUTSIDE RECORDS SUMMARY | 2024-11-15 11:52 | XMS_ITS | Encounter Summary ---
Author Organization [facility] Healthcare Address [address] [facility] [place] [address] Care Team Providers Care Hot Plate Press Operator Name Role Phone Michael Higginbotham DO Unavailable Encounter Details Date Type Department Care Team (Late st Contact Info) Description 10/07/2024 Abstract [facility] [address] [place] [address] Michael Higginbotham [address] [place] [address] Social History Tobacco Use Types Packs/Day [...] Description 11/27/2024 11:30 AM EDT Routine [facility] OB [address] [place] [address] Michael Higginbotham, DO [address], [facility] documented as of this encounter Visit Diagnoses Not on filedocumented in this encounter Care Teams Hot Plate Press Operator Relationship Specialty Start Date End Date Michael Higginbotham DO [facility] [address] [place], [place] [id number] PCP - [employer] HEADING AND PRIMING TOOL SETTER 09/04/23 documented as of this encounter
--- OUTSIDE RECORDS SUMMARY | 2024-11-15 11:52 | XMS_ITS | Encounter Summary ---
Author Organization [facility] Address [address] [facility] [place] [address] Care Team Providers Care Sugar Reprocess Operator Head Name Role Phone Michael Higginbotham DO Unavailable Encounter Details Date Type Department Care Team (Late st Contact Info) Description 11/13/2024 Bamboo flowsheet [facility] [address] [place] [address] Diya Villanueva PA [address] [place], [facility]11 Social History Tobacco Use Types Packs/Day [...] AM EDT Routine [facility] [address] [place] [address] Michael Higginbotham DO [address], [facility]11 documented as of this encounter Visit Diagnoses Not on filedocumented in this encounter Care Teams Sugar Reprocess Operator Head Relationship Specialty Start Date End Date Michael Higginbotham DO [facility] [address], [facility] PCP - [facility] 09/04/23 documented as of this encounter
--- OUTSIDE RECORDS SUMMARY | 2024-11-15 11:52 | XMS_ITS | Encounter Summary ---
Author Organization [facility] Address [address] [facility] [place] [address] Care Team Providers Care Chief Engineer'S Helper Name Role Phone Michael Higginbotham DO Unavailable Encounter Details Date Type Department Care Team (Late st Contact Info) Description 10/01/2024 Abstract [facility] OB [address] [place] [address] Michael Higginbotham [address], [facility] Social History Tobacco Use Types Packs/Day Years [...] Description 11/27/2024 11:30 AM EDT Routine [facility] OB [address] [place] [address] Michael Higginbotham, DO [address], [facility] documented as of this encounter Visit Diagnoses Not on filedocumented in this encounter Care Teams Chief Engineer'S Helper Relationship Specialty Start Date End Date Michael Higginbotham DO [facility] [address] [place], [place] [id number] 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
--- OUTSIDE RECORDS SUMMARY | 2024-11-15 11:52 | XMS_ITS | Encounter Summary ---
Author Organization [facility] Healthcare Address [address] [facility] [place] [address] Care Team Providers Care Anesthesia Director Name Role Phone Michael Higginbotham DO Unavailable Encounter Details Date Type Department Care Team (Late st Contact Info) Description 09/05/2024 Abstract [facility] OB [address] [place] [address] Michael Higginbotham [address], [facility]11 Social History Tobacco Use Types Packs/Day [...] Description 11/27/2024 11:30 AM EDT Routine [facility] OB [address] [place] [address] Michael Higginbotham, DO [address], [facility]11 documented as of this encounter Visit Diagnoses Not on filedocumented in this encounter Care Teams Anesthesia Director Relationship Specialty Start Date End Date Michael Higginbotham DO [facility] [address] [place], [place] [phone] 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
--- OUTSIDE RECORDS SUMMARY | 2024-11-15 11:52 | XMS_ITS | Encounter Summary ---
Author Organization [facility] Address [address] [facility] [place] [address] Care Team Providers Care Vocational Adviser Name Role Phone Sammie Higginbotham DO Unavailable Encounter Details Date Type Department Care Team (Late st Contact Info) Description 11/12/2024 Clinisync Result Encounter [facility] External Department Unsolicited Sammie Higginbotham, [address] [place], [place] [id number] Social History Tobacco Use Types Packs/Day Years [...] AM EDT Routine [facility] [address] [place] [id number] Sammie Higginbotham, [address] [place] [address] documented as of this encounter Procedures Procedure Name Priority Date/Time Associated Diagnosis Comments TBH URINE T PROTEIN CREAT RATIO Routine 11/12/2024 3:00 PM EDT TBH CREATININE Routine 11/12/2024 1:58 PM EDT SRMCOH PROTHROMBIN TIME INR W/O COUM Routine 11/12/2024 1:58 PM EDT MHPT FIBRINOGEN Routine 11/12/2024 1:58 PM EDT CCF AST Routine 11/12/2024 1:58 PM EDT [facility] APTT Routine 11/12/2024 1:58 PM EDT C[facility] ALT Routine 11/12/2024 1:58 PM EDT ALL URIC ACID Routine 11/12/2024 1:58 PM EDT ALL CBC WITH AUTO DIFF Routine 11/12/2024 1:58 PM EDT ALL BUN Routine 11/12/2024 1:58 PM EDT US OB BPP W NON-STRESS 11/12/2024 12:14 PM EDT documented in this encounter Results * (ABNORMAL) TBH URINE T PROTEIN CREAT RATIO (11/12/2024 3:00 PM EDT) TOTAL PROTEIN URINE RANDOM <6.0 <=11.9 mg/dL TBH CREATININE URINE RANDOM 19.35(L) 20.00 - 300.00 mg/dL TBH 11/12/2024 3:00 PM EDT 11/12/2024 3:00 PM EDT Narrative CLINISYNC - 11/12/2024 3:08 PM EDT us Sammie Neftaly DO CLINISYNC Final Result [facility] * (ABNORMAL) MHPT FIBRINOGEN (11/12/2024 1:58 PM EDT) FIBRINOGEN 537(H) 200 - 400 mg/dL TBH 11/12/2024 1:58 PM EDT 11/12/2024 2:02 PM EDT Narrative CLINISYNC - 11/12/2024 2:48 PM EDT Sammie Leungo DO CLINISYNC Final Result [facility] * CCF APTT (11/12/2024 1:58 PM EDT) PARTIAL THROMBOPLASTIN TIME 23.3 22.3 - 36.2 sec TB 11/12/2024 1:58 PM EDT 11/12/2024 2:02 PM EDT Narrative CLINISYNC - 11/12/2024 2:48 PM EDT Sammie Higginbotham DO CLINISYNC Final Result KRISTIAN TB * [facility] PROTHROMBIN TIME INR W/O COUM (11/12/2024 1:58 PM EDT) PROTHROMBIN TIME 9.8 9.0 - 11.6 sec TB TB INR <0.93 TBH Comment: DESIRED INR: 2.0-3.0 CONDITIONS NOT LISTED BELOW 2.5-3.5 FOR PROSTHETIC HEART VALVE REPLACEMENT 2.5-3.5 RECURRENT THROMBOSIS 11/12/2024 1:58 PM EDT 11/12/2024 2:02 PM EDT Narrative CLINISYNC - 11/12/2024 2:48 PM EDT Sammie Leungo DO CLINISYNC Final Result DANICAOH TB * CCF ALT (11/12/2024 1:58 PM EDT) ALANINE AMINOTRANSFERASE 14 14 - 59 U/L TB 11/12/2024 1:58 PM EDT 11/12/2024 2:02 PM EDT Narrative CLINISYNC - 11/12/2024 2:20 PM EDT Sammie Neftaly DO CLINISYNC Final Result CLINISYNC TB * (ABNORMAL) CCF AST (11/12/2024 1:58 PM EDT) ASPARTATE AMINO TRANSFERASE 11(L) 15 - 37 U/L TBH 11/12/2024 1:58 PM EDT 11/12/2024 2:02 PM EDT Narrative CLINISYNC - 11/12/2024 2:20 PM EDT Sammie Neftaly DO CLINISYNC Final Result Performing Organization Address [facility] Co de Phone Number CLINISYNC TB * ALL URIC ACID (11/12/2024 1:58 PM EDT) URIC ACID 3.6 2.6 - 6.0 mg/dL TBH 11/12/2024 1:58 PM EDT 11/12/2024 2:02 PM EDT Narrative CLINISYNC - 11/12/2024 2:20 PM EDT Sammie Neftaly DO CLINISYNC Final Result Performing Organization Address [facility] de Phone Number CLINISYNC TB * (ABNORMAL) TBH CREATININE (11/12/2024 1:58 PM EDT) CREATININE 0.49(L) 0.55 - 1.02 mg/dL TBH TBH EGFR-AF PUERTO RICAN >60 >=60 mL/min/1.7 3m 2 TBH TBH EGFR-NON AF PUERTO RICAN >60 >=60 mL/min/1.7 3m 2 TBH 11/12/2024 1:58 PM EDT 11/12/2024 2:02 PM EDT Narrative CLINISYNC - 11/12/2024 2:20 PM EDT Sammie Neftaly DO CLINISYNC Final Result Performing Organization Address City/[facility]/ZIP Co de Phone Number CLINISYNC TB * ALL BUN (11/12/2024 1:58 PM EDT) Pathologist [facility] BLOOD UREA NITROGEN 13.0 7.0 - 18.0 mg/dL TB 11/12/2024 1:58 PM EDT 11/12/2024 2:02 PM EDT Narrative CLINISYNC - 11/12/2024 2:20 PM EDT Sammie Neftaly DO CLINISYNC Final Result CLINISYOH TB * (ABNORMAL) ALL CBC WITH AUTO DIFF (11/12/2024 1:58 PM EDT) [facility] TB WBC 13.8(H) 4.0 - 11.0 10 3/uL TBH TBH RBC 3.74(L) 4.20 - 5.40 10 6/uL TBH TBH HGB 10.1(L) 12.0 - 16.0 g/dL TBH TB HCT 30.7(L) 36.0 - 48.0 % TBH TBH MCV 82.1 81.0 - 99.0 fL TBH TBH MCH 27.0 26.7 - 34.0 pg TBH TBH MCHC 32.9 29.9 - 35.2 g/dL TBH TBH RDW 13.7 11.0 - 15.0 % TBH TBH PLT 224 150 - 450 10 3/uL TBH TBH MPV 12.0 9.5 - 13.5 fL TBH NEUTROPHILS PERCENT AUTO 88.8(H) 43.0 - 75.0 % TBH LYMPHOCYTES PERCENT AUTO 7.4(L) 20.5 - 60.0 % TBH MONOCYTES PERCENT AUTO 3.0 1.7 - 12.0 % TBH TBH EO % 0.1(L) 0.9 - 7.0 % TBH BASOPHILS PERCENT AUTO 0.2 0.2 - 2.0 % TBH IMMATURE GRANULOCYTES PCT AUTO 0.5 0.0 - 0.5 % TBH NEUTROPHILS ABSOLUTE AUTO 12.3(H) 1.4 - 6.5 10 3/uL TBH LYMPHOCYTES ABSOLUTE AUTO 1.0(L) 1.2 - 3.8 10 3/uL TBH MONOCYTES ABSOLUTE AUTO 0.4 0.3 - 0.8 10 3/uL TBH TBH EO # 0.0 0.0 - 0.7 10 3/uL TBH BASOPHILS ABSOLUTE AUTO 0.0 0.0 - 0.1 10 3/uL TBH IMMATURE GRANULOCYTES ABS AUTO 0.07(H) 0.00 - 0.03 10 3/uL TBH 11/12/2024 1:58 PM EDT 11/12/2024 2:02 PM EDT Narrative CLINISYNC - 11/12/2024 2:10 PM EDT Sammie Higginbotham DO CLINISYJOSE DANIEL Final [facility] US OB BPP W NON-STRESS (11/12/2024 12:14 PM EDT) Anatomical Region Laterality Modality Other 11/12/2024 12:1 4 PM EDT Narrative 11/12/2024 12:17 PM EDT [address] [address] Ultrasound Report Signed Patient: JANINA HUMMEL MR#: [id number] : 1990 Acct:[id number] Age/Sex: 34 / F ADM Date: 11/12/24 Loc: [facility] 254-[address]: Sammie Higginbotham D.O. Ordering Physician: Sammie Higginbotham D.O. Date of Service: 11/12/24 Procedure(s): US OB BPP w non-stress Accession Number(s): [id number] cc: Sammie Higginbotham D.O.; Physician,Non-Staff M.Kaylee The [address] [address] Patient Name: JANINA HUMMEL MRN: [id number] date: 1990 Sex: F Assigned Patient Location: [facility] Current Patient Location: [facility] Accession/Order Number: [id number] Exam Date: 11/12/2024 12:13 Report Date: 11/12/2024 [...] Long M.D. 11/12/2024 12:14 PM Dictation Location: [place] [address] Electronically authenticated by: [id number] Y Date: 11/12/2024 12:14 Dictated By: Madie Long M.D. Signed By: 11/12/24 1217 DD/ 1214 TD/TT: Communications Department Chair: Procedure Note Radiology, Radiologist, MD - 11/12/2024 [place] [address] Ultrasound Report Signed Patient: JANINA HUMMEL LMR#: [id number] : 1990Acct:[id number] Age/Sex: 34 / FADM Date: 11/12/24 Loc: [facility] 254-[address]: Sammie Higginbotham D.O. Ordering Physician: Sammie Higginbotham D.O. Date of Service: 11/12/24 Procedure(s): US OB BPP w non-stress Accession Number(s): [id number] cc: Sammie Higginbotham D.O.; Physician,Non-Staff M.D. The [address] [address] Patient Name: JANINA HUMMEL MRN: [employer]:[id number] date: 1990 Sex: F Assigned Patient Location[place] [facility] Current Patient Location: [facility] Accession/Order Number: [id number] Exam Date: 11/12/2024 12:13 Report Date: 11/12/2024 12:14 At the request of: SAMMIE HIGGINBOTHAM DO Procedure: US OB BPP w non-stress BIOPHYSICAL PROFILE: CLINICAL INFORMATION: GDM COMPARISON: None There is a single live intrauterine gestation in cephalic presentation.The reported gestational age is 32 weeks 1 day. The heart rate [id number] beats per minute. FINDINGS: TONE: 1 or more episodes of activity extension and flexion of extremity or opening and closing of the hand [Y] 2/2 GROSS BODY MOVEMENTS: 3 or more discrete body or limb movements [Y] 2/2 BREATHING MOVEMENTS: 1 or more episodes of breathing lastingat least 30 seconds [Y] 2/2 JUSTA: A single deepest vertical pocket of amniotic fluid greater than 2 cm [Y] 2/2 JUSTA: 11.1 cm. This is in low-normal range. Total score: 8/8 US/US OB BPP w non-stress IMPRESSION: NORMAL BIOPHYSICAL PROFILE. Impression dictated by: Madie Long M.D. 11/12/2024 12:14 PM Dictation Location: [place] [address] Electronically authenticated by: [id number] Y Date: 2:14 Dictated By: Madie Long M.D. Signed By:11/12/24 1217 DD/ 1214 TD/TT: Communications Department Chair: Sammie Higginbotham DO CLINISYNC IMAGING Final Result documented in this encounter Visit Diagnoses Not on filedocumented in this encounter Care Teams Vocational Adviser Relationship Specialty Start Date End Date Sammie Higginbotham DO [address] [place] [address] [facility] 09/04/23 documented as of this encounter
--- OUTSIDE RECORDS SUMMARY | 2024-11-15 11:52 | XMS_ITS | Encounter Summary ---
Author Organization [facility] Healthcare Address [address] [place] [address] Care Team Providers Care K 12 Principal Name Role Phone Michael Higginbotham DO Unavailable Encounter Details Date Type Department Care Team (Late st Contact Info) Description 11/13/2024 Abstract [facility] OB [address] [place] [address] Michael Higginbotham [address], [facility]11 Social History Tobacco Use Types Packs/Day [...] 11/27/2024 11:30 AM EDT Routine [facility] OB [address] [place] [address] Michael Higginbotham, DO [address], [facility] documented as of this encounter Visit Diagnoses Not on filedocumented in this encounter Care Teams K 12 Principal Relationship Specialty Start Date End Date Michael Higginbotham DO [facility] [address] [place], [place] [phone] PCP - [employer] 09/04/23 documented as of this encounter
--- OUTSIDE RECORDS SUMMARY | 2024-11-15 11:52 | XMS_ITS | Encounter Summary ---
Author Organization [facility] Address [address] [facility] [place] [address] Care Team Providers Care Certified Medical Technician Assistant Name Role Phone Michael Higginbotham DO Unavailable Encounter Details Date Type Department Care Team (Late st Contact Info) Description 02/25/2023 Abstract [facility] OB [address] [place] [address] Michael Higginbotham DO [address], [facility]11 Social History Tobacco Use Types [...] Description 11/27/2024 11:30 AM EDT Routine [facility] OB [address] [place] [phone] Michael Higginbotham DO [address], [place] [address] documented as of this encounter Visit Diagnoses Not on filedocumented in this encounter Care Teams Certified Medical Technician Assistant Relationship Specialty Start Date End Date Michael Higginbotham DO [place], [place] [phone] PCP - [facility] 09/04/23 documented as of this encounter
--- OUTSIDE RECORDS SUMMARY | 2024-11-15 11:52 | XMS_ITS | Encounter Summary ---
Author Organization [facility] Address [address] [facility] [place] [address] Care Team Providers Care Carrier Washer Name Role Phone Michael Higginbotham DO Unavailable Encounter Details Date Type Department Care Team (Late st Contact Info) Description 08/19/2024 Orders Only [facility] [address] [place] [address] [facility] [address] [place] [address] Social History Tobacco Use Types Packs/Day Years [...] Description 11/27/2024 11:30 AM EDT [facility]ine [facility] OB [address] [facility] [place] [address] Michael Higginbotham, [address] [facility] [address] [place], [place] [phone] documented as of this encounter Procedures Procedure Name Priority Date/Time Associated Diagnosis Comments PAP SMEAR Routine 08/05/2024 12:00 AM EST documented in this encounter Results * Pap Smear (08/05/2024 12:00 AM EST) Swab Cervical swab / Unknown [facility]TOLOGY ORDERABLES Final Re sult EXTERNAL LAB documented in this encounter Visit Diagnoses Not on filedocumented in this encounter Care Teams Carrier Washer Relationship Specialty Start Date End Date Michael Higginbotham DO [address] [place] [address] PCP - [facility]CEIV[facility]OCI[facility] 09/04/23 documented as of this encounter
== END 2024-11-15 17:51 | disposition home or self-care (01) ==
LOC: FBCO 11:50 → FBC 11:51
PROVIDERS: Visit Provider Obstetrics & Gynecology
DX: O24.419 Gestational diabetes mellitus in pregnancy, unspecified control (principal); Z3A.32 32 weeks gestation of pregnancy
CPT/HCPCS: 59025

== ENCOUNTER 2024-11-18 08:52 | Outpatient (OUT) | payer OTHER, SELFPAY ==
--- NOTE | 2024-11-18 08:58 | US_ITS ---
The [place] [id number] Patient Name: JANINA HUMMEL MRN: [id number] date: 1990 Sex: F Assigned Patient Location: [facility] Current Patient Location: [facility] Accession/Order Number: [id number] Exam Date: 11/18/2024 09:24 Report Date: 11/18/2024 09:26 At the request of: SAMMIE AHUMADA DO Procedure: US OB BPP w non-stress BIOPHYSICAL PROFILE: CLINICAL INFORMATION: Gestational diabetes mellitus COMPARISON: 11/12/2024. There is a single live intrauterine gestation in cephalic presentation. The reported gestational age is 33 weeks 0 days. The heart rate measures 157 beats per minute. FINDINGS: TONE: 1 or more episodes of activity extension and flexion of extremity or opening and closing of the hand [Y] 2/2 GROSS BODY MOVEMENTS: 3 or more discrete body or limb movements [Y] 2/2 BREATHING MOVEMENTS: 1 or more episodes of breathing lasting at least 30 seconds [Y] 2/2 JUSTA: A single deepest vertical pocket of amniotic fluid greater than 2 cm [Y] 2/2 JUSTA: 10.8 cm. This is in low-normal range. Total score: 8/8 US/US OB BPP w non-stress IMPRESSION: NORMAL BIOPHYSICAL PROFILE . Impression dictated by: Madie Long M.D. 11/18/2024 9:26 AM Dictation Location: [place] [address] Electronically authenticated by: [id number] Y Date: 11/18/2024 09:26
--- OUTSIDE RECORDS SUMMARY | 2024-11-18 09:12 | XMS_ITS | CCD ---
Author Organization [facility] CliniSyca Care Team Providers Care Tonal Regulator Name Role Phone NEFTALY, DR COCHRAN Attending [...] Unavaila ble KARASIPavan, DR LOTT Consulting Unavailable WHITTIER, DR POLLO Gonzalez Consulting Unavailable NEFTALY, DR [...] SELLERS Referring Unavailable SAMMIE HIGGINBOTHAM Attending Unavailable DIYA ROBLES Attending Unavailable Medications Current Medications Medication Drug Class(es) Dates Sig (Normalized) Sig (Original) Blood Glucose Monitoring Suppl (D-Care Glucometer) w/Device kit (7 sources) Start: 10-01-2024 End: 10-01-2025 Blood Glucose Monitoring Suppl (D-Care Glucometer) w/Device kit Indications: Elevated glucose tolerance test 1 kit Daily Use four times daily to check FSBS. In the morning prior to breakfast & 1 hour after each meal for a total of 4times daily. 1 kit 10/01/2024 10/01/2025 Active isopropyl alcohol 0.7 ml/ml medicated pad (7 sources) Start: 10-01-2024 Alcohol Swabs (Alcohol Prep Pad) 70 % pads Indications: Elevated glucose tolerance test Apply 1 Pad topically Daily Use four times daily to check FSBS. 150 each 3 10/01/2024 Active labetalol hydrochloride 100 mg oral tablet (3 sources) beta-Adrenergic Katarina Start: 11-13-2024 End: 11-13-2025 take 1 tablet by mouth in the morning labetalol (Normodyne) 100 MG tablet Indications: Hypertension affecting in third trimester (HHS-HCC) Take 1 tablet (100 mg) by mouth [...] Test Name Value Interpretation Reference Range Facility [facility] TOTAL PROTEIN 24 HOUR UR INEon 11-13-2024 Interpretation and review of laboratory results Abnormal [facility] re Protein (U) [Mass/Vol] 10.8 mg/dL NINF - 11.9 mg/dL [facility] TOTAL PROTEIN 24 HOUR URINE 302.4 High [facility] TOTAL VOLUME 24 HOUR URINE 2800 mL/24hr [facility] Urinalysis macro (dipstick) panel (U)on 11-13-2024 Bilirubin, UA Negative Negative - 4(70) +++ mg/dL [facility] Blood, UA Negative Negative - 50 Dario/mcL [facility] Clarity, UA Clear [facility] re Color, UA Yellow [facility] Health[facility] e Glucose, UA Negative Negative - 1999(110) ++++ mg/dL [facility] Interpretation and review of laboratory results Abnormal [facility] Health[facility] re Ketones, UA Positive Negative - 160(16) ++++ mg/dL [facility] Comment on above: 40 Leukocytes, UA Trace Negative - 500+++ Oksana/mcL [facility] Nitrite, UA Negative Negative - Positive [facility] pH, UA 6.5 5 - 9 [facility] Healthcar e Protein, UA Negative Negative - 1999(20) ++++ mg/dL [facility] Spec Grav, UA 1.005 1 - 1.03 [facility] Urobilinogen, UA 0.2 0.2 - 12 mg/dL [facility] US OB BPP W NON-STRESS on 11-12-[address] [address] Ultrasound Report Signed Patient: JANINA MARTEL MR#: [id number] : 1990 Acct:[id number] Age/Sex: 34 / F ADM Date: 11/12/24 Loc: [facility] 254-[address]: Sammie Higginbotham D.O. Ordering Physician: Sammie Higginbotham D.O. Date of Service: 11/12/24 Procedure(s): US OB BPP w non-stress Accession Number(s): [id number] cc: Sammie Higginbotham D.O.; Physician,Non-Staff [place] [address] Patient Name: JANINA MARTEL MRN: [facility]:[id number] date: 1990 Sex: F [place] [facility] [place] [facility] [place] Accession/Order Number: [id number] Exam Date: 11/12/2024 12:13 Report Date: 11/12/2024 [...] Long M.D. 11/12/2024 12:14 PM Dictation Location: [place] [address] Electronically authenticated by: [id number] Y Date: 11/12/2024 12:14 Dictated By: Madie Long M.D. Signed By: 11/12/24 1217 DD/ 1214 TD/TT: Edger Automatic: [facility] Radiology, Radiologist, MD - 11/12/2024 [place] [address] Ultrasound Report Signed Patient: JANINA MARTEL MR#: [id number] : 1990 Acct:[id number] Age/Sex: 34 / F ADM Date: 11/12/24 Loc: [facility] 254-[address]: Sammie Higginbotham D.O. Ordering Physician: Sammie Higginbotham D.O. Date of Service: 11/12/24 Procedure(s): US OB BPP w non-stress Accession Number(s): [id number] cc: Sammie Higginbotham D.O.; Physician,Non-Staff [place] The [address] [address] Patient Name: JANINA MARTEL MRN: [facility]:[id number] date: 1990 Sex: F [place]igned [place] [facility] [place] [facility] [place] Accession/Order Number: [id number] Exam Date: 11/12/2024 12:13 Report Date: 11/12/2024 [...] Long M.D. 11/12/2024 12:14 PM Dictation Location: [place] [address] Electronically authenticated by: [id number] Y Date: 11/12/2024 12:14 Dictated By: Madie Long M.D. Signed By: 11/12/24 1217 DD/ 1214 TD/TT: Edger Automatic: [facility] Radiology Study observation (narrative) [facility] US OB BPP W NON-STRESS Ordered By: Radiologist Radiology on 11-12-2024 [facility] [employer] Work Phone: US OB FOLLOW UP [...] II, MD, PHD at 30-Oct-2024 11:19:03 PM [facility] Normal Not Available Comment on above: Order Comment: US OB SCAN FOR GROWTH Estimated Date of Delivery: 01/06/25 Gestational Age as of 10/01/2024: 26w1d Urinalysis macro (dipstick) panel (U)on 10-30-2024 Bilirubin, UA Negative Negative - 4(70) +++ mg/dL [facility] Healthcare Blood, UA Negative Negative - 50 Dario/mcL [facility] Healthcare Clarity, UA Clear [facility] re Color, UA Yellow [facility] Glucose, UA Negative Negative - 1999(110) ++++ mg/dL [facility] Interpretation and review of laboratory results Abnormal [facility] Ketones, UA Negative Negative - 160(16) ++++ mg/dL [facility] Healthcare Leukocytes, UA Positive Negative - 500+++ Oksana/mcL [facility] Healthcare Comment on above: small Nitrite, UA Negative Negative - Positive [facility] Healthcare pH, UA 7 5 - 9 [facility] Protein, UA Negative Negative - 1999(20) ++++ mg/dL [facility] Healthcare Spec Grav, UA 1.01 1 - 1.03 [facility] Urobilinogen, UA 0.2 0.2 - 12 mg/dL [facility] Urinalysis macro (dipstick) panel (U)on 09-02-2024 Bilirubin, UA Negative Negative - 4(70) +++ mg/dL [facility] Blood, UA Negative Negative - 50 Dario/mcL [facility] Healthcare Clarity, UA Clear [facility] Color, UA Yellow [facility] Glucose, UA Negative Negative - 1999(110) ++++ mg/dL [facility] Interpretation and review of laboratory results Abnormal [facility] Ketones, UA Negative Negative - 160(16) ++++ mg/dL [facility] Healthcare Leukocytes, UA Positive Negative - 500+++ Oksana/mcL [facility] Healthcare Comment on above: Large Nitrite, UA Negative Negative - Positive [facility] pH, UA 7 5 - 9 [facility] Protein, UA Negative Negative - 1999(20) ++++ mg/dL [facility] Healthcare Spec Grav, UA 1.01 1 - 1.03 [facility] Urobilinogen, UA 0.2 0.2 - 12 mg/dL [facility] US OB 14+ WEEKS ANATOMY [...] II, MD, PHD at 22-Aug-2024 08:46:17 AM [facility] Normal Not Available Comment on above: Order Comment: US OB ANATOMY SINGLE W US OB CERVICAL LENGTH Estimated Date of Delivery: 01/06/25 Gestational Age as of 08/05/2024: 18w0d IGP,APTIMA HPV,AGE GDLNon AGE GDLN ACOG TESTING Note . [facility] Comment on above: TESTS RESULT FLAG UN ITS REF RANGE LAB Clinician Provided Cytology Information Source.............Cervix Other.............. No. of containers..01 ThinPrep Vial Age Algo ACOG Maria Antonia... FLAG LEGEND: L-Low Normal,H-High Normal,LL-Alert Low,HH-Alert High <-Panic Low,>-Panic High,A-Abnormal,AA-Critical Abnormal Performed at: 01 =G [address] [address] Asha Garza MD, HPV APTIMA Negative Negative [facility] Comment on above: This nucleic acid am plification test detects fourteen high- risk HPV types (16,18,31,33,35,39,45,51,52,56,58,59,66,68) without differentiation. Performed at: = - [address] [id number] [employer] Supervisor: Asha Garza MD, Phone: [phone] Performed at: - [address] [id number] [employer] Supervisor: Asha Garza MD, Phone: [phone] IGP, APTIMA HPV, RFX 16/18,45 Note . [facility] Comment on above: TESTS RESULT FLAG UN ITS REF RANGE LAB DIAGNOSIS: 02 NEGATIVE FOR INTRAEPITHELIAL LESION OR MALIGNANCY. Specimen adequacy: 02 Satisfactory for evaluation. Endocervical and/or squamous metaplastic cells (endocervical component) are present. Performed by: 02 Jojo Pablo Meters Superintendent (ASCP) . 02 Note: Note 02 The [...] <-Panic Low,>-Panic High,A-Abnormal,AA-Critical Abnormal Performed at: 02 [facility] [address] [place] [address] Asha Garza MD, SPATULA-ALONE CERVIX [facility] Healthcar e RECURRENT VAGINITIS (HTRX)on 08-07-2024 ATOPOBIUM VAGINAE 0 [facility] althcare ATOPOBIUM VAGINAE Not detected [facility] BVAB 2,3 (BACTERIAL VAGINOSIS ASSOCIATED BACTERIA 2, 3); MOBILUNCUS SPP 0 [facility] BVAB 2,3 (BACTERIAL VAGINOSIS ASSOCIATED BACTERIA 2, 3); MOBILUNCUS SPP Not detected [facility] ELODIA ALBICANS, PARAPSILOSIS, TROPICALIS 0 [facility] ELODIA ALBICANS, PARAPSILOSIS, TROPICALIS Not detected [facility] ELODIA GLABRATA 0 [facility] Hea lthcare ELODIA GLABRATA Not detected [facility] ealthcare ELODIA KRUSEI 0 [facility] Healt hcare ELODIA KRUSEI Not detected [facility] Hea lthcare CHLAMYDIA TRACHOMATIS 0 [facility] CHLAMYDIA TRACHOMATIS Not detected [facility] GARDNERELLA VAGINALIS 0 [facility] GARDNERELLA VAGINALIS Not detected [facility] MEGASPHAERA (TYPES 1, 2) 0 [facility] MEGASPHAERA (TYPES 1, 2) Not detected [facility] MYCOPLASMA GENITALIUM 0 [facility] MYCOPLASMA GENITALIUM Not detected [facility] NEISSERIA GONORRHOEAE 0 [facility] NEISSERIA GONORRHOEAE Not detected [facility] TRICHOMONAS VAGINALIS 0 [facility] TRICHOMONAS VAGINALIS Not detected [facility] GLUCOSE TOLERANCE 3 HOURon 0 08-03-2024 GLUCOSE TOLERANCE 3 HOUR mg/dL [facility] Comment on above: GLU FAST 94 (<95) Co l: 08/03/24 0809 GLU 1HR 163 (<180) Col: 08/03/24 0912 GLU 2HR 114 (<155) Col: 08/03/24 1012 GLU 3HR 109 (<140) Col: 08/03/24 1112 [facility] Healthcar e GLUCOSE 1 HOURon 07-27-2024 Glucose [Mass/Vol] 151 mg/dL High NINF - 13 0 mg/dL [facility] Interpretation and review of laboratory results Abnormal [facility] Healthcar e ALL CBC WITH AUTO DIFFon BASOPHILS ABSOLUTE AUTO 0 [facility] Basophils/100 WBC (Bld) 0.3 % 0.2 - 2.0 % [facility] Eosinophils/100 WBC (Bld) 0.2 % Low 0.9 - 7.0 % [facility] Erythrocyte distribution width (RBC) [Ratio] 13.5 % 11.0 - 15.0 % [facility] Hematocrit (Bld) [Volume fraction] 36 % 36.0 - 48.0 % [facility] Health[facility] e Hemoglobin (Bld) [Mass/Vol] 12.5 g/dL 12.0 - 16.0 g/dL [facility] IMMATURE GRANULOCYTES ABS AUTO 0.05 High [facility] Immature granulocytes/100 WBC (Bld) 0.4 % 0.0 - 0.5 % [facility] Interpretation and review of laboratory results Abnormal [facility] Healthca re LYMPHOCYTES ABSOLUTE AUTO 2.1 [facility] Lymphocytes/100 WBC (Bld) 16 % Low 20.5 - 60.0 % [facility] MCH (RBC) [Entitic mass] 30.1 pg 26.7 - 34.0 pg [facility] MCHC (RBC) [Mass/Vol] 34.7 g/dL 29.9 - 35.2 g/dL [facility] MCV (RBC) [Entitic vol] 86.7 fL 81.0 - 99.0 fL [facility] MONOCYTES ABSOLUTE AUTO 0.9 High [facility] Monocytes/100 WBC (Bld) 6.6 % 1.7 - 12.0 % [facility] NEUTROPHILS ABSOLUTE AUTO 9.9 High [facility] Neutrophils/100 WBC (Bld) 76.5 % High 43.0 - 75.0 % [facility] Platelet mean volume (Bld) [Entitic vol] 10.7 fL 9.5 - 13.5 fL [facility] TBH EO # 0 [facility] Health[facility] e TBH PLT 276 [facility] RBC 4.15 Low [facility] Health[facility] e TBH WBC 12.9 High [facility] Health[facility] e [facility] Health[facility] e HCG ( test) Ql (U)o n 06-07-2024 Interpretation and review of laboratory results Abnormal [facility] re Preg Test, Ur Positive Negative [facility] Health[facility] US OB TRANSVAGINALon 025 [...] x 4.7 cm (8 weeks, 3 days). Scammon rump length is 2.5 cm (9 weeks, [...] Negative Negative - 4(70) +++ mg/dL [facility] Blood, UA Negative Negative - 50 Dario/mcL [facility] Clarity, UA Clear [facility] re Color, UA Yellow [facility] Glucose, UA Negative Negative - 1999(110) ++++ mg/dL [facility] Interpretation and review of laboratory results Normal [facility] re Ketones, UA Negative Negative - 160(16) ++++ mg/dL [facility] Leukocytes, UA Negative Negative - 500+++ Oksana/mcL [facility] Nitrite, UA Negative Negative - Positive [facility] pH, UA 5.5 5 - [address] [facility] e Protein, UA Negative Negative - 1999(20) ++++ mg/dL [facility] Spec Grav, UA 1.015 1 - 1.03 [facility] Urobilinogen, UA 0.2 0.2 - 12 mg/dL [facility] TBH PREG QUANT HCGon 024 HCG QUANTITATIVE <1 mIU/mL [facility] lthcare Comment on above: 5-50 0.2-1 WEEK 50-500 1-2 WEEKS 100-5,000 2-3 WEEKS 500-10,000 3-4 WEEKS 1,000-50,000 4-5 WEEKS 10,000-100,000 5-6 WEEKS 15,000-200,000 6-8 WEEKS 10,000-100,000 2-3 MONTHS [facility] TBH PREG QUANT HCGon 10-25-2 024 HCG QUANTITATIVE 15 mIU/mL [facility] l[facility] Comment on above: 5-50 0.2-1 WEEK 50-500 1-2 WEEKS 100-5,000 2-3 WEEKS 500-10,000 3-4 WEEKS 1,000-50,000 4-5 WEEKS 10,000-100,000 5-6 WEEKS 15,000-200,000 6-8 WEEKS 10,000-100,000 2-3 MONTHS [facility] TBH PREG QUANT HCGon 10-21-2 024 HCG QUANTITATIVE 22 mIU/mL [facility] ltare Comment on above: 5-50 0.2-1 WEEK 50-500 1-2 WEEKS 100-5,000 2-3 WEEKS 500-10,000 3-4 WEEKS 1,000-50,000 4-5 WEEKS 10,000-100,000 5-6 WEEKS 15,000-200,000 6-8 WEEKS 10,000-100,000 2-3 MONTHS [facility] TBH PREG QUANT HCGon 10-19-2 024 HCG QUANTITATIVE 32 mIU/mL [facility] ltare Comment on above: 5-50 0.2-1 WEEK 50-500 1-2 WEEKS 100-5,000 2-3 WEEKS 500-10,000 3-4 WEEKS 1,000-50,000 4-5 WEEKS 10,000-100,000 5-6 WEEKS 15,000-200,000 6-8 WEEKS 10,000-100,000 2-3 MONTHS [facility] PAP ACOG PANEL 2: 21 to 29on 09-22-2021 . . Normal [facility] Comment on above: Performed By: #### [id number] #### [facility] [address] [place] [address] Dr. Yariel Huynh Age Gdln ACOG Testing 21-29 Normal [facility] Comment on above: Performed By: #### [id number] #### [facility] [address] [place] [address] Dr. Yariel Huynh DIAGNOSIS: Comment Normal [facility] Comment on above: Result Comment: NEGA TIVE FOR INTRAEPITHELIAL LESION OR MALIGNANCY. Performed By: #### [id number] #### [facility] [address] [place] [address] Dr. Yariel Huynh Methodology: Comment Normal [facility] Comment on above: Result Comment: This liquid based ThinPrep(R) pap test was screened with the use of an image guided system. Performed By: #### [id number] #### [facility] [address] [place] [address] Dr. Yariel Huynh Note: Comment Normal [facility] Comment on above: Result Comment: The Pap smear is a screening test designed to aid in the detection of premalignant and malignant conditions of the uterine cervix. It is not a diagnostic procedure and should not be used as the sole means of detecting cervical cancer. Both false-positive and false-negative reports do occur. . Performed By: #### [id number] #### [facility] [address] [place] [address] Dr. Yariel Huynh Performed by: Comment Normal [facility] Comment on above: Result Comment: Carole Lee, Meters Superintendent (ASCP) Performed By: #### [id number] #### [facility] [address] [place] [address] Dr. Yariel Huynh Reflex Criteria: Comment Normal [facility] Comment on above: Result Comment: The HPV DNA reflex criteria were not met with this specimen result therefore, no HPV testing was performed. . Performed By: #### [id number] #### [facility] [address] [place] [address] Dr. Yariel Huynh Specimen adequacy: Comment Normal [facility] Comment on above: Result Comment: Sati sfactory for evaluation. Endocervical and/or squamous metaplastic cells (endocervical component) are present. Performed By: #### 4 [id number] #### [facility] [address] [place] [address] Dr. Yariel Huynh RUBELLA AB IGGon 12-10-2020 Rubella Antibodies, IgG 1.46 index Normal Immune >0.99 [facility] Comment on above: Result Comment: Non- immune <0.90 Equivocal 0.90 - 0.99 Immune >0.99 Performed By: #### R UBIGG #### [facility] [address] [place] [address] Clyde Ramachandran CBC AUTO DIFFon 12-09-2020 BASO # 0.1 103/ul Normal 0.0-0.1 [facility] Comment on above: Performed By: #### [id number] #### [facility] [address] [place] [address] Dr. Yariel Huynh Basophils/100 WBC (Bld) 0.3 % Normal 0.2-2.0 [facility] Comment on above: Performed By: #### [id number] #### [facility] [address] [place] [address] Dr. Yariel Huynh EO # 0.0 103/ul Normal 0.0-0.7 [facility] Comment on above: Performed By: #### 4 [id number] #### [facility] [address] [place] [address] Dr. Yariel Huynh Eosinophils/100 WBC (Bld) 0.1 % Critically low 0.9-7.0 [facility] Comment on above: Performed By: #### [id number] #### [facility] [address] [place] [address] Dr. Yariel Huynh Erythrocyte distribution width (RBC) [Ratio] 13.9 % Normal 11.0-15.0 [facility] Comment on above: Performed By: #### 4 [id number] #### [facility] [address] [place] [address] Dr. Yariel Huynh Hematocrit (Bld) [Volume fraction] 29.5 % Critically low 36.0-48.0 [facility] Comment on above: Performed By: #### 4 [id number] #### [facility] [address] [address] [address] Yariel Huynh Hemoglobin (Bld) [Mass/Vol] 9.3 g/dL Critically low 12.0-16.0 [facility] Comment on above: Performed By: #### 4 [id number] #### [facility] [address] [place] [address] Dr. Yariel Huynh IG # 0.08 10e3/ul Critically high 0.00-0.03 [facility] Comment on above: Performed By: #### 4 [id number] #### [facility] [address] [place] [address] Dr. Yariel Huynh IG % 0.5 % Normal 0.0-0.5 [facility] Comment on above: Performed By: #### 4 [id number] #### [facility] [address] [place] [address] Dr. Yariel Huynh LYMPH # 1.7 103/ul Normal 1.2-3.8 [facility] Comment on above: Performed By: #### 4 [id number] #### [facility] [address] [place] [address] Dr. Yariel Huynh Lymphocytes/100 WBC (Bld) 10.8 % Critically low 20.5-60.0 [facility] Comment on above: Performed By: #### 4 [id number] #### [facility] [address] [place] [address] Dr. Yariel Huynh MANUAL DIFF REQ NO Normal [facility] Comment on above: Performed By: #### 4 [id number] #### [facility] [address] [place] [address] Dr. Yariel Huynh MCH (RBC) [Entitic mass] 26.2 pg Critically low 26.7-34.0 [facility] Comment on above: Performed By: #### 4 [id number] #### [facility] [address] [place] [address] Dr. Yariel Huynh MCHC (RBC) [Mass/Vol] 31.5 g/dL Normal 29.9-35.2 [facility] Comment on above: Performed By: #### 4 [id number] #### [facility] [address] [place] [address] Dr. Yariel Huynh MCV (RBC) [Entitic vol] 83.1 fL Normal 81.0-99.0 [facility] Comment on above: Performed By: #### 4 [id number] #### [facility] [address] [place] [address] Dr. Yairel Huynh MONO # 0.8 103/ul Normal 0.3-0.8 [facility] Comment on above: Performed By: #### 4 [id number] #### [facility] [address] [place] [address] Dr. Yariel Huynh Monocytes/100 WBC (Bld) 5.2 % Normal 1.7-12.0 [facility] Comment on above: Performed By: #### 4 [id number] #### [facility] [address] [place] [address] Dr. Yariel Huynh NEUT # 12.8 103/ul Critically high 1.4-6.5 [facility] Comment on above: Performed By: #### 4 [id number] #### [facility] [address] [place] [address] Dr. Yariel Huynh Neutrophils/100 WBC (Bld) 83.1 % Critically high 43.0-75.0 [facility] Comment on above: Performed By: #### 4 [id number] #### [facility] [address] [place] [address] Dr. Yariel Huynh Platelet mean volume (Bld) [Entitic vol] 12.6 fL Normal 9.5-13.5 [facility] Comment on above: Performed By: #### 4 [id number] #### [facility] [address] [place] [address] Dr. Yariel Huynh PLT 203 103/ul Normal 150-450 [facility] Comment on above: Performed By: #### 4 [id number] #### [facility] [address] [place] [address] Dr. Yariel Huynh RBC 3.55 106/ul Critically low 4.20-5.40 [facility] Comment on above: Performed By: #### [id number] #### [facility] [address] [place] [address] Dr. Yariel Huynh WBC 15.4 103/ul Critically high 4.0-11.0 [facility] Comment on above: Performed By: #### 4 [id number] #### [facility] [address] [place] [address] Dr. Yariel Huynh ASYMPTOMATIC COVID-19 ANTIGE Non 12-08-2020 EUA Statement SEE BELOW Normal [facility] Comment on above: Result [...] is revoked sooner. Performed By: #### 4 [id number] #### [facility] [address] [place] [address] Dr. Yariel Huynh SARS-CoV-2 (COVID-19) RNA ESTEBAN+probe Ql (Unsp spec) Negative Normal NEGATIVE [facility] Comment on above: Result Comment: Nega tive results are presumptive. They do not preclude infection and should not be used as the sole basis for treatment decisions. Additional confirmatory testing by a molecular method should be considered. Performed By: #### 4 [id number] #### [facility] [address] [place] [address] Dr. Yariel Huynh BUNon 12-08-2020 Urea nitrogen [Mass/Vol] 15.0 mg/dL Normal 7.0-17.0 [facility] Comment on above: Performed By: #### 4 [id number] #### [facility] [address] [place] [address] Dr. Yariel Huynh CBC AUTO DIFFon 12-08-2020 BASO # 0.0 103/ul Normal 0.0-0.1 [facility] Comment on above: Performed By: #### 4 [id number] #### [facility] [address] [place] [address] Dr. Yariel Huynh Basophils/100 WBC (Bld) 0.3 % Normal 0.2-2.0 [facility] Comment on above: Performed By: #### 4 [id number] #### [facility] [address] [place] [address] Dr. Yariel Huynh EO # 0.0 103/ul Normal 0.0-0.7 [facility] Comment on above: Performed By: #### 4 [id number] #### [facility] [address] [place] [address] Dr. Yariel Huynh Eosinophils/100 WBC (Bld) 0.4 % Critically low 0.9-7.0 [facility] Comment on above: Performed By: #### 4 [id number] #### [facility] [address] [place] [address] Dr. Yariel Huynh Erythrocyte distribution width (RBC) [Ratio] 13.8 % Normal 11.0-15.0 [facility] Comment on above: Performed By: #### 4 [id number] #### [facility] [address] [place] [address] Dr. Yariel Huynh Hematocrit (Bld) [Volume fraction] 31.8 % Critically low 36.0-48.0 [facility] Comment on above: Performed By: #### 4 [id number] #### [facility] [address] [place] [address] Dr. Yariel Huynh Hemoglobin (Bld) [Mass/Vol] 10.1 g/dL Critically low 12.0-16.0 [facility] Comment on above: Performed By: #### 4 [id number] #### [facility] [address] [place] [address] Dr. Yariel Huynh IG # 0.07 10e3/ul Critically high 0.00-0.03 [facility] Comment on above: Performed By: #### 4 [id number] #### [facility] [address] [place] [address] Dr. Yariel Huynh IG % 0.7 % Critically high 0.0-0.5 [facility] Comment on above: Performed By: #### 4 [id number] #### [facility] [address] [address] [address] Yariel Huynh LYMPH # 2.3 103/ul Normal 1.2-3.8 [facility] Comment on above: Performed By: #### 4 [id number] #### [facility] [address] [place] [address] Dr. Yariel Huynh Lymphocytes/100 WBC (Bld) 22.7 % Normal 20.5-60.0 [facility] Comment on above: Performed By: #### 4 [id number] #### [facility] [address] [place] [address] Dr. Yariel Huynh MANUAL DIFF REQ NO Normal [facility] Comment on above: Performed By: #### 4 [id number] #### [facility] [address] [place] [address] Dr. Yariel Huynh MCH (RBC) [Entitic mass] 26.7 pg Normal 26.7-34.0 [facility] Comment on above: Performed By: #### 4 [id number] #### [facility] [address] [place] [address] Dr. Yariel Huynh MCHC (RBC) [Mass/Vol] 31.8 g/dL Normal 29.9-35.2 [facility] Comment on above: Performed By: #### 4 [id number] #### [facility] [address] [place] [address] Dr. Yariel Huynh MCV (RBC) [Entitic vol] 84.1 fL Normal 81.0-99.0 [facility] Comment on above: Performed By: #### 4 [id number] #### [facility] [address] [place] [address] Dr. Yariel Huynh MONO # 0.6 103/ul Normal 0.3-0.8 [facility] Comment on above: Performed By: #### 4 [id number] #### [facility] [address] [place] [address] Dr. Yariel Huynh Monocytes/100 WBC (Bld) 6.3 % Normal 1.7-12.0 [facility] Comment on above: Performed By: #### 4 [id number] #### [facility] [address] [place] [address] Dr. aYriel Huynh NEUT # 7.0 103/ul Critically high 1.4-6.5 [facility] Comment on above: Performed By: #### 4 [id number] #### [facility] [address] [place] [address] Dr. Yariel Huynh Neutrophils/100 WBC (Bld) 69.6 % Normal 43.0-75.0 [facility] Comment on above: Performed By: #### 4 [id number] #### [facility] [address] [place] [address] Dr. Yariel Huynh Platelet mean volume (Bld) [Entitic vol] 12.9 fL Normal 9.5-13.5 [facility] Comment on above: Performed By: #### 4 [id number] #### [facility] [address] [place] [address] Dr. Yariel Huynh PLT 193 103/ul Normal 150-450 [facility] Comment on above: Performed By: #### 4 [id number] #### [facility] [address] [place] [address] Dr. Yariel Huynh RBC 3.78 106/ul Critically low 4.20-5.40 [facility] Comment on above: Performed By: #### 4 [id number] #### [facility] [address] [place] [address] Dr. Yariel Huynh WBC 10.1 103/ul Normal 4.0-11.0 [facility] Comment on above: Performed By: #### 4 [id number] #### [facility] [address] [place] [address] Dr. Yariel Huynh CREATININEon 12-08-2020 Creatinine [Mass/Vol] 0.80 mg/dL Normal 0.52-1.04 [facility] Comment on above: Performed By: #### L DH, URIC, AST, ALT, BUN, CREA #### [facility] [address] [place] [address] Clyde Ramachandran EGFR-AF MALAWIAN >60 Normal >=60 [facility] Comment on above: Performed By: #### L DH, URIC, AST, ALT, BUN, CREA #### [facility] [address] [place] [address] Clyde Ramachandran EGFR-NON AF MALAWIAN >60 Normal >=60 [facility] Comment on above: Performed By: #### L DH, URIC, AST, ALT, BUN, CREA #### [facility] [address] [place] [address] Clyde Ramachandran DRUG SCREEN RAPID (URINE)on 12-08-2020 AMP Negative Normal NEGATIVE [facility] Comment on above: Performed By: #### 4 [id number] #### [facility] [address] [place] [address] Dr. Yariel Huynh BAR Negative Normal NEGATIVE [facility] Comment on above: Performed By: #### 4 [id number] #### [facility] [address] [place] [address] Dr. Yariel Huynh BUP Negative Normal NEGATIVE [facility] Comment on above: Performed By: #### 4 [id number] #### [facility] [address] [place] [address] Dr. Yariel Huynh BZO Negative Normal NEGATIVE [facility] Comment on above: Performed By: #### 4 [id number] #### [facility] [address] [place] [address] Dr. Yariel Huynh ROSA Negative Normal NEGATIVE [facility] Comment on above: Performed By: #### 4 [id number] #### [facility] [address] [place] [address] Dr. Yariel Huynh CUT-OFFS SEE BELOW Normal [facility] Comment on above: Result Comment: AMP (Amphetamine): 500ng/mL, BAR (Barbituates): 200 ng/mL, BZO (Benzodiazepines): 150 ng/mL, BUP (Buprenorphine): 10 ng/mL, ROSA (Cocaine): 150 ng/mL, mAMP (Methamphetamine): 500 ng/mL, MTD (Methadone): 200 ng/mL, OPI (Opiates): 100 ng/mL, OXY (Oxycodone): 100 ng/mL, PCP (Phencyclidine): 25 ng/mL, PPX (Propoxyphene): 300 ng/mL, THC (Cannabinoids): 50 ng/mL, TCA (Trycyclic Antidepressants): 300 ng/mL Performed By: #### 4 [id number] #### [facility] [address] [place] [address] Dr. Yariel Huynh DRUG CUT HEADER DRUG CLASS TEST SYSTEM CUT-OFF CONCENTRATIONS ARE FOLLOWS: Normal [facility] Comment on above: Performed By: #### 4 [id number] #### [facility] [address] [place] [address] Dr. Yariel Huynh mAMP Negative Normal NEGATIVE [facility] Comment on above: Performed By: #### 4 [id number] #### [facility] [address] [place] [address] Dr. Yariel Huynh MTD Negative Normal NEGATIVE [facility] Comment on above: Performed By: #### 4 [id number] #### [facility] [address] [place] [address] Dr. Yariel Huynh OPI Negative Normal NEGATIVE [facility] Comment on above: Performed By: #### 4 [id number] #### [facility] [address] [place] [address] Dr. Yariel Huynh OXY Negative Normal NEGATIVE [facility] Comment on above: Performed By: #### 4 [id number] #### [facility] [address] [place] [address] Dr. Yariel Huynh PCP Negative Normal NEGATIVE [facility] Comment on above: Performed By: #### 4 [id number] #### [facility] [address] [place] [address] Dr. Yariel Huynh PPX Negative Normal NEGATIVE [facility] Comment on above: Performed By: #### 4 [id number] #### [facility] [address] [place] [address] Dr. Yariel Huynh TCA Negative Normal NEGATIVE [facility] Comment on above: Performed By: #### 4 [id number] #### [facility] [address] [place] [address] Dr. Yariel Huynh THC Negative Normal NEGATIVE [facility] Comment on above: Performed By: #### 4 [id number] #### [facility] [address] [place] [address] Dr. Yariel Huynh LDHon 12-08-2020 LDH 163 U/L Normal 122-222 [facility] Comment on above: Performed By: #### L DH, URIC, AST, ALT, BUN, CREA #### [facility] [address] [place] [address] Clyde Ramachandran SGOTon 12-08-2020 AST [Catalytic activity/Vol] 15 U/L Normal 14-36 [facility] Comment on above: Performed By: #### L DH, URIC, AST, ALT, BUN, CREA #### [facility] [address] [place] [address] Clyde Ramachandran SGPTon 12-08-2020 ALT [Catalytic activity/Vol] 12 U/L Normal 9-52 [facility] Comment on above: Performed By: #### L DH, URIC, AST, ALT, BUN, CREA #### [facility] [address] [place] [address] Clyde Madie TYPE AND SCREENon 12-08-2020 TYPE AND SCREEN Negative Normal [facility] Comment on above: Performed By: #### T NS #### [facility] [address] [place] [address] Clyde Ramachandran URIC ACID SERUMon 12-08-2020 Urate [Mass/Vol] 5.0 mg/dL Normal 2.5-6.2 [facility] Comment on above: Performed By: #### L DH, URIC, AST, ALT, BUN, CREA #### [facility] [address] [place] [address] Clyde Ramachandran US PREG BIOPHY W NON [...] by: POLLO PABLO Date: 2020-12-08 08:45 Normal [facility] US PREG BIOPHY W NON STRESSo [...] by: SCOTT CORTES Date: 2020-12-01 10:52 Normal [facility] Vital Signs Date Time Vital Sign Value Performing Clinician Roxann torres 11-13-2024 10:28-0400 Body weight 78.65 kg Diya GEE Work Phone: [facility] 11-13-2024 10:28-0400 Diastolic blood pressure 78 mm[Hg] Diya GEE Work Phone: [facility] 11-13-2024 10:28-0400 Systolic blood pressure 130 mm[Hg] Diya GEE Work Phone: [facility] 10-30-2024 10:31-0400 Body weight 78.53 kg Sammie Neftaly DO Work Phone: [facility] 10-30-2024 10:31-0400 Diastolic blood pressure 78 mm[Hg] Sammie Neftaly DO Work Phone: [facility] 10-30-2024 10:31-0400 Systolic blood pressure 120 mm[Hg] Sammie Neftaly DO Work Phone: [facility] 10-01-2024 09:38-0400 Body weight 75.48 kg Linnataly Sellers TRAPEZE PERFORMER Work Phone: [facility] 10-01-2024 09:38-0400 Diastolic blood pressure 76 mm[Hg] Lin Verito TRAPEZE PERFORMER Work Phone: [facility] 10-01-2024 09:38-0400 Systolic blood pressure 120 mm[Hg] Lin Verito TRAPEZE PERFORMER Work Phone: [facility] 09-02-2024 09:46-0400 Body weight 71.85 kg Sammie Neftaly DO Work Phone: [facility] 09-02-2024 09:46-0400 Diastolic blood pressure 82 mm[Hg] Sammie Neftaly DO Work Phone: [facility] 09-02-2024 09:46-0400 Systolic blood pressure 122 mm[Hg] Sammie Neftaly DO Work Phone: [facility] 08-05-2024 09:52-0500 Body weight 68.49 kg Diya GEE Work Phone: [facility] 08-05-2024 09:52-0500 Diastolic blood pressure 78 mm[Hg] Diya GEE Work Phone: [facility] 08-05-2024 09:52-0500 Systolic blood pressure 124 mm[Hg] Diya GEE Work Phone: [facility] 07-08-2024 09:52-0500 Body weight 67.31 kg Sammie Neftaly DO Work Phone: [facility] 07-08-2024 09:52-0500 Diastolic blood pressure 70 mm[Hg] Sammie Neftaly DO Work Phone: [facility] 07-08-2024 09:52-0500 Systolic blood pressure 118 mm[Hg] Sammie Neftaly DO Work Phone: [facility] 06-07-2024 09:47-0500 Body weight 66.22 kg Noms Nurse [facility] 06-07-2024 09:47-0500 Diastolic blood pressure 72 mm[Hg] Noms Nurse [facility] 06-07-2024 09:47-0500 Systolic blood pressure 122 mm[Hg] Noms Nurse [facility] Encounters Encounter Date Encounter Type Care Provider Facility Start: 11-13-2024 End: 11-13-2024 Bamboo flowsheet Diya GEE Work Phone: [facility] Start: 11-13-2024 End: 11-13-2024 Bamboo flowsheet Diay GEE Work Phone: [facility] Start: 11-13-2024 End: 11-13-2024 Clinisync Result Encounter Sammie Neftaly DO Work Phone: [facility] External Department Unsolicited Start: 11-13-2024 End: 11-13-2024 Office outpatient visit 15 minutes Diya GEE Work Phone: [facility] Comment on above: Hypertension affecti ng in third trimester (Primary Dx); 32 weeks gestation of ; Third trimester Start: 11-13-2024 End: 11-13-2024 ambulatory DIYA ROBLES Not Available Start: 11-12-2024 End: 11-12-2024 Clinisync Result Encounter Sammie Neftaly DO Work Phone: [facility] External Department Unsolicited Start: 11-12-2024 End: 11-12-2024 Clinisync Result Encounter Sammie Neftaly DO Work Phone: [facility] External Department Unsolicited Start: 10-30-2024 End: 10-30-2024 Office outpatient visit 15 minutes Sammie Neftaly DO Work Phone: [facility] Comment on above: 30 weeks gestation o f ; Third trimester ; H/O pre-eclampsia in prior , currently ; Gestational diabetes mellitus (GDM), antepartum, gestational diabetes method of control unspecified Start: 10-30-2024 End: 10-30-2024 ambulatory SAMMIE NEFTALY Not Available Start: 10-01-2024 End: 10-01-2024 Bamboo flowsheet Lin Sellers TRAPEZE PERFORMER Work Phone: [facility] Start: 10-01-2024 End: 10-01-2024 Bamboo flowsheet Linnataly Sellers TRAPEZE PERFORMER Work Phone: [facility] Start: 10-01-2024 End: 10-01-2024 Office outpatient visit 15 minutes Lin Sellers TRAPEZE PERFORMER Work Phone: [facility] Comment on above: Second trimester pre gnancy; size inconsistent with dates; H/O pre-eclampsia in prior , currently Start: 10-01-2024 End: 10-01-2024 ambulatory LIN VERITO Not Available Start: 09-02-2024 End: 09-02-2024 Bamboo flowsheet Sammie Neftaly DO Work Phone: [facility] Start: 09-02-2024 End: 09-02-2024 Bamboo flowsheet Sammie Neftaly DO Work Phone: [facility] Start: 09-02-2024 End: 09-02-2024 Office outpatient visit 15 minutes Sammie Neftaly DO Work Phone: [facility] Comment on above: Second trimester pre gnancy; 22 weeks gestation of ; Diabetes mellitus screening Start: 09-02-2024 End: 09-02-2024 ambulatory SAMMIE NEFTALY Not Available Start: 08-21-2024 End: 08-21-2024 ambulatory SAMMIE NEFTALY Not Available Start: 08-05-2024 End: 08-05-2024 Bamboo flowsheet Diya GEE Work Phone: [facility] Start: 08-05-2024 End: 08-08-2024 Bamboo flowsheet Diya GEE Work Phone: [facility] Start: 08-05-2024 End: 08-08-2024 Clinisync Result Encounter Diya GEE Work Phone: [facility] External Department Unsolicited Start: 08-05-2024 End: 08-07-2024 External Result Encounter Diya GEE Work Phone: [facility] External Department Unsolicited Start: 08-05-2024 End: 08-05-2024 Office outpatient visit 15 minutes Diya GEE Work Phone: [facility] Comment on above: Well woman exam with routine gynecological exam; Exposure to STD; Second trimester ; 18 weeks gestation of ; Need for maternal serum alpha-protein (MSAFP) screening; Screening, , for anatomic survey Start: 08-05-2024 End: 08-05-2024 Patient encounter procedure Diya GEE Work Phone: [facility] Start: 08-05-2024 End: 08-05-2024 ambulatory DIYA [...] Procedure Procedure Detail Performing Clinician Start: 11-13-2024 TBH TOTAL PROTEIN 24 HOUR URINE Sammie Leungo DO Work Phone: Start: 11-13-2024 Urnls dip stick/tabl et rgnt [...] Screening for malign ant neoplasm of cervix [facility] Start: 03-15-2028 Screening for malign ant neoplasm of cervix [facility] Start: 02-03-2025 Influenza vaccination Influenz a Vaccine (Season Ended) [facility] Start: 11-27-2024 End: 11-27-2024 Patient encounter procedure 11/27/2024 11:30 AM EDT Routine [facility] [address] [place] [id number] Sammie Higginbotham, [address] [place] [address] [facility] Start: 11-13-2024 End: 11-13-2024 Patient encounter procedure [facility] Comment on above: Arrived Start: 10-30-2024 End: 05-02-2025 US biophysical profile w non stress test US biophysical profile w non stress test Imaging Routine 30 weeks gestation of Third trimester H/O pre-eclampsia in prior , currently Gestational diabetes mellitus (GDM), antepartum, gestational diabetes method of control unspecified Expected: 10/30/2024 (Approximate), Expires: 05/02/2025 [facility] Work Phone: Comment on above: Expected: 10/30/2024 (Approximate), Expires: 05/02/2025 Start: 10-01-2024 End: 01-31-2025 US for US OB follow up transabdominal approach Imaging Routine H/O pre-eclampsia in prior , currently Expected: 10/01/2024, Expires: 01/31/2025 [facility] Work Phone: Comment on above: Expected: 10/01/2024 , Expires: 01/31/2025 Start: 10-01-2024 End: 10-01-2024 Patient encounter procedure [facility] Comment on above: Arrived Start: 09-02-2024 End: 09-02-2025 CBC panel - Blood by Automated count CBC Lab Routine Diabetes mellitus screening Expected: 09/02/2024 (Approximate), Expires: 09/02/2025 [facility] Work Phone: Comment on above: Expected: 09/02/2024 (Approximate), Expires: 09/02/2025 Start: 09-02-2024 End: 09-02-2025 Measurement of glucose 1 hour after glucose challenge for glucose tolerance test Glucose tolerance, 1 hour Lab Routine Diabetes mellitus screening Expected: 09/02/2024 (Approximate), Expires: 09/02/2025 [facility] Comment on above: Expected: 09/02/2024 (Approximate), Expires: 09/02/2025 Start: 09-02-2024 End: 09-02-2024 Patient encounter procedure [facility] Comment on above: Arrived Start: 08-21-2024 End: 08-21-2024 Professional / ancillary services management 08/21/2024 9:00 AM EDT Ancillary Procedure [facility] [address] [place] [address] [facility] Start: 08-05-2024 End: 09-05-2024 Alpha fetoprotein, maternal Alpha fetoprotein, maternal Lab Routine Need for maternal serum alpha-protein (MSAFP) screening Expected: 08/05/2024 (Approximate), Expires: 09/05/2024 [facility] Comment on above: Expected: 08/05/2024 (Approximate), Expires: 09/05/2024 Start: 08-05-2024 End: 08-05-2025 US for US OB 14+ weeks anatomy scan Imaging Routine Screening, , for anatomic survey Expected: 08/05/2024 (Approximate), Expires: 08/05/2025 [facility] Comment on above: Expected: 08/05/2024 (Approximate), Expires: 08/05/2025 Start: 08-05-2024 End: 08-05-2024 Patient encounter procedure [facility] Comment on above: Arrived Start: 07-08-2024 End: 07-08-2025 Measurement of glucose 1 hour after glucose challenge for glucose tolerance test Glucose tolerance, 1 hour Lab Routine Diabetes mellitus screening Expected: 07/08/2024 (Approximate), Expires: 07/08/2025 [facility] Work Phone: Comment on above: Expected: 07/08/2024 [...] 04-19-2024 ambulatory 04/19/2024 10:00 AM EST Initial [facility] [address] [place] [address] [facility] Start: 04-19-2024 End: 04-19-2024 Professional / ancillary services management 04/19/2024 9:30 AM EST Ancillary Procedure [facility] [address] [place] [address] [place] [address] [facility] Start: 02-04-2024 Influenza vaccination Influenza Vacc ine (#1) [facility] Start: 2013 Screening for malign ant neoplasm of cervix Pap Smear [facility] Bacteria identified in Urine by Culture Urine culture Microbiology Routine Missed menses Ordered: 06/07/2024 [facility] Comment on above: Ordered: 06/07/2024 CBC W Auto Different ial panel - Blood CBC and differential Lab Routine Missed menses , unspecified gestational age Ordered: 06/07/2024 [facility] Comment on above: Ordered: 06/07/2024 CHLAMYDIA TRACHOMATI S (GENITO/STI) CHLAMYDIA TRACHOMATIS (GENITO/STI) Lab Routine Exposure to STD Ordered: 08/05/2024 [facility] Comment on above: Ordered: 08/05/2024 Cytology Cervical or vaginal smear or scraping study Pap Smear Pathology and Cytology Routine Well woman exam with routine gynecological exam Ordered: 08/05/2024 [facility] Comment on above: Ordered: 08/05/2024 Hemoglobin A1c/Hemoglobin.total in Blood Hemoglobin A1c Lab Routine Missed menses , unspecified gestational age Ordered: 06/07/2024 [facility] Comment on above: Ordered: 06/07/2024 Hepatitis B virus surface Ag [Presence] in Serum or Plasma by Immunoassay Hepatitis B surface antigen Lab Routine Missed menses , unspecified gestational age Ordered: 06/07/2024 [facility] Comment on above: Ordered: 06/07/2024 Hepatitis C virus Ab [Presence] in Serum or Plasma by Immunoassay Hepatitis C antibody Lab Routine Missed menses , unspecified gestational age Ordered: 06/07/2024 [facility] Comment on above: Ordered: 06/07/2024 HIV-1/HIV-2 antigen/antibody combination immunoassay HIV-1 and HIV-2 antibodies Lab Routine Missed menses , unspecified gestational age Ordered: 06/07/2024 [facility] Comment on above: Ordered: 06/07/2024 Human papilloma viru s DNA [Presence] in Unspecified specimen by Probe with amplification HPV DNA probe, amplified Microbiology Routine Well woman exam with routine gynecological exam Ordered: 08/05/2024 [facility] Comment on above: Ordered: 08/05/2024 Neisseria gonorrhoea e DNA [Presence] in Unspecified specimen by ESTEBAN with probe detection Neisseria gonorrhea DNA probe, direct Lab Routine Exposure to STD Ordered: 08/05/2024 [facility] Comment on above: Ordered: 08/05/2024 Reagin Ab [Presence] in Serum by RPR RPR Lab Routine Missed menses , unspecified gestational age Ordered: 06/07/2024 [facility] Comment on above: Ordered: 06/07/2024 Rubella antibody, IgG Rubella an tibody, IgG Lab Routine Missed menses , unspecified gestational age Ordered: 06/07/2024 [facility] Comment on above: Ordered: 06/07/2024 SURESWAB(R) ADVANCED VAGINITIS PLUS, TMA SURESWAB(R) ADVANCED VAGINITIS PLUS, TMA Pathology and Cytology Routine Exposure to STD Ordered: 08/05/2024 [facility] Work Phone: Comment on above: Ordered: 08/05/2024 [facility] TOTAL PROTEIN 24 HOUR URINE [facility] TOTAL PROTEIN 24 HOUR URINE Lab Ordered: 11/13/2024 [facility] Comment on above: Ordered: 11/13/2024 Immunizations Immunization Date Immunization Notes Care Provider Fa jessica 05-09-2019 influenza virus vacc ine, unspecified formulation Sammie Higginbotham DO Work Phone: [facility] Healthcare Payers Date Payer Category Payer Private Health Insurance [facility] MEDICAID [id number] 2017 Medicaid [id number] 1992 Unknown [id number] 2.16840.1.826528.3.579.2. 593 1992 Unknown [id number] 2.16840.1.840976.3.579.2. 593 1992 Unknown [id number] 2.16840.1.089555.3.579.2. 593 1992 Unknown [id number] 2.16.840.1.818465.3.579.2. 593 1992 Unknown [id number] 2.16.840.1.442221.3.579.2. 593 1992 Unknown [id number] 2.16.840.1.100050.3.579.2. 593 1992 Unknown [id number] 2.16840.1.587700.3.579.2. 593 1992 Unknown [id number] 2.16.840.1.257703.3.579.2. 593 1992 Unknown [id number] 2.16.840.1.694123.3.579.2. 593 1992 Unknown [id number] 2.16.840.1.136262.3.579.2. 1259 1992 Unknown [id number] 2.16.840.1.994928.3.579.2. 1259 1992 Unknown [id number] 2.16.840.1.549681.3.579.2. 1259 1992 Unknown [id number] 2.16.840.1.597708.3.579.2. 9 1992 Unknown [id number] 2.16.840.1.154330.3.579.2. 1259 1992 Unknown [id number] 2.16.840.1.542455.3.579.2. 1259 1992 Unknown [id number] 2.16.840.1.277458.3.579.2. 1259 1992 Unknown [id number] 2.16.840.1.379061.3.579.2. 9 1992 Unknown [id number] 2.16.840.1.639421.3.579.2. 1259 1992 Unknown [id number] 2.16.840.1.636722.3.579.2. 1259 1959 Self-pay [id number] 1957 Unknown [id number] Social History Date Type Detail Facility Tobacco smoking stat [facility] Tobacco smoking consumption unknown [facility] Start: [...] meal for a total of 4times daily. [id number] Start: 10-01-2024 End: 11-13-2024 1 each by In Vit ro route Daily Use to check FSBS four times daily [id number] Start: 10-01-2024 End: 11-13-2024 Clinical Notes 06-07-2024 to 11-13-2024 MARLEN Estrada - 11/13/2024 10:30 AM Kelley Maldonado LPN [...] to check FSBS. Blood Glucose Monitoring Suppl (mParticle Glucometer) w/Device kit 1 kit, Does not [...] of: MARLEN Estrada documented in this encounter [facility] 10-30-2024 History of Presen t illness Narrative Reason for Appointment: Patient ID: Janina Martel is a 34 y.o. female who presents for No chief complaint on file. Patient presents today for Return OB appointment. MEDICATIONS Current Outpatient Medications Medication Instructions Alcohol Swabs (Alcohol Prep Pad) 70 % pads 1 Pad, Topical, Daily, Use four times daily to check FSBS. Blood Glucose Monitoring Suppl (mParticle Glucometer) w/Device kit 1 kit, Does not [...] nursing note reviewed. Exam conducted with a mechanical project manager present. Vitals: There is no height or [...] Sammie Higginbotham DO documented in this encounter [facility] 10-01-2024 History of Presen t illness Narrative [...] nursing note reviewed. Exam conducted with a mechanical project manager present. Vitals: There is no height or [...] Lin Sellers NP documented in this encounter [facility] 09-02-2024 History of Presen t illness Narrative [...] nursing note reviewed. Exam conducted with a mechanical project manager present. Vitals: There is no height or [...] Sammie Higginbotham DO documented in this encounter [facility] 08-05-2024 History of Presen t illness Narrative [...] nursing note reviewed. Exam conducted with a mechanical project manager present. Vitals: There is no height or [...] of: MARLEN Estrada documented in this encounter [facility] 07-08-2024 History of Presen t illness Narrative [...] Sammie Higginbotham DO documented in this encounter [facility] 06-07-2024 History of Presen t illness Narrative [...] or undercooked meat, and stay away from [facility]. Patient has also been advised to [...] DATE CREATED AUTHOR 11/24/2021 [facility] DATE CREATED AUTHOR 'S ORGANIZ ATION 11/15/2024 [facility] Care Teams (unrecognized sec tion and content) Tonal Regulator Relationship Specialty Start Date End Date Sammie Higginbotham, DO [address] [place] [id number] PCP [facility] 09/04/23 Tonal Regulator Relationship Specialty Start Date End Date Sammie Higginbotham, [address] [place] [address] [facility] 09/04/23 Tonal Regulator Relationship Specialty Start Date End Date Sammie Higginbotham, [address] [place] [address] [facility] 09/04/23 Tonal Regulator Relationship Specialty Start Date End Date Sammie Higginbotham, DO [address] [place] [address] [facility] 09/04/23 Tonal Regulator Relationship Specialty Start Date End Date Neftaly, Sammie, DO [address] [place] [address] [facility] 09/04/23 Tonal Regulator Relationship Specialty Start Date End Date Neftaly, Sammie, DO [address], [facility] [facility] 09/04/23 Tonal Regulator Relationship Specialty Start Date End Date Neftaly, Sammie, DO [address], [facility] 09/04/23 Tonal Regulator Relationship Specialty Start Date End Date Neftaly, Sammie, DO [address], [facility] [facility] 09/04/23 Tonal Regulator Relationship Specialty Start Date End Date Neftaly, Sammie, DO [address] [place] [address] [facility] 09/04/23 Tonal Regulator Relationship Specialty Start Date End Date Neftaly, Sammie, DO [address] [place] [address] [facility] 09/04/23 Tonal Regulator Relationship Specialty Start Date End Date Neftaly, Sammie, DO [address] [place] [address] PCP - [facility] 09/04/23 Reason for Visit (unrecogniz [...] BE BASED ON THE PRIMARY CLINICAL RECORDS. [facility] [employer] provides no warranty or guarantee of the accuracy or completeness of information in this document.
[2024-11-18 09:24] VITALS: BP 137/84; PULSE 106
== END 2024-11-18 09:52 | disposition home or self-care (01) ==
LOC: US 08:52 → FBC 08:53
PROVIDERS: Visit Provider Obstetrics & Gynecology
DX: O24.419 Gestational diabetes mellitus in pregnancy, unspecified control (principal); Z3A.33 33 weeks gestation of pregnancy
CPT/HCPCS: 76818

== ENCOUNTER 2024-11-21 07:47 | Outpatient (OUT) | payer OTHER, SELFPAY ==
--- OUTSIDE RECORDS SUMMARY | 2024-11-21 07:50 | XMS_ITS | CCD ---
Author Organization [facility] CliniSywa Care Team Providers Care Entrepreneurship Program Director Name Role Phone NEFTALY, DR COCHRAN Attending [...] Unavaila ble KARASIPavan, DR LOTT Consulting Unavailable MIDLAND, DR POLLO Gonzalez Consulting Unavailable NEFTALY, DR [...] Glucose Monitoring Suppl (D-Care Glucometer) w/Device kit (8 sources) Start: 10-01-2024 End: 10-01-2025 Blood Glucose Monitoring Suppl (D-Care Glucometer) w/Device kit Indications: Elevated glucose tolerance test 1 kit Daily Use four times daily to check FSBS. In the morning prior to breakfast & 1 hour after each meal for a total of 4times daily. 1 kit 10/01/2024 10/01/2025 Active isopropyl alcohol 0.7 ml/ml medicated pad (8 sources) Start: 10-01-2024 Alcohol Swabs (Alcohol Prep Pad) 70 % pads Indications: Elevated glucose tolerance test Apply 1 Pad topically Daily Use four times daily to check FSBS. 150 each 3 10/01/2024 Active labetalol hydrochloride 100 mg oral tablet (4 sources) beta-Adrenergic Katarina Start: 11-13-2024 End: 11-13-2025 [...] Test Name Value Interpretation Reference Range Facility US OB BPP W NON-STRESS on 11-18-2024 [place] [address] Ultrasound Report Signed Patient: JANINA MARTEL MR#: [id number] : 1990 Acct:[id number] Age/Sex: 34 / F ADM Date: 11/18/24 Loc: [facility] 250-[address]: Sammie Higginbotham D.O. Ordering Physician: Sammie Higginbotham D.O. Date of Service: 11/18/24 Procedure(s): OB BPP w non-stress Accession Number(s): [id number] cc: Sammie Higginbotham D.O.; Physician,Non-Staff [place] [id number] Patient Name: JANINA MARTEL MRN: TBH:[id number] date: 1990 Sex: F Assigned Patient Location: [facility] Current Patient Location: [facility] Accession/Order Number: [id number] Exam Date: 11/18/2024 09:24 Report Date: 11/18/2024 09:26 At the request of: SAMMIE HIGGINBOTHAM DO Procedure: US OB BPP w non-stress BIOPHYSICAL PROFILE: CLINICAL INFORMATION: Gestational diabetes mellitus COMPARISON: 11/12/2024. There is a single live intrauterine gestation in cephalic presentation. The reported gestational age is 33 weeks 0 days. The heart rate measures 157 beats per minute. FINDINGS: TONE: 1 or [...] greater than 2 cm [Y] 2/2 JUSTA: 10.8 cm. This is in low-normal range. Total score: 8/8 US/US OB BPP w non-stress IMPRESSION: NORMAL BIOPHYSICAL PROFILE . Impression dictated by: Madie Long M.D. 11/18/2024 9:26 AM Dictation Location: [place] [address] Electronically authenticated by: [id number] Y Date: 11/18/2024 09:26 Dictated By: Madie Long M.D. Signed By: 11/18/24927 DD/ 5 TD/TT: Power Hair Clipper: [facility] Radiology, Radiologist, MD - 11/18/2024 [place] [address] Ultrasound Report Signed Patient: JANINA MARTEL MR#: [id number] : 1990 Acct:[id number] Age/Sex: 34 / F ADM Date: 11/18/24 Loc: [place] [address]: Sammie Higginbotham D.O. Ordering Physician: Sammie Higginbotham D.O. Date of Service: 11/18/24 Procedure(s): US OB BPP w non-stress Accession Number(s): [id number] cc: Sammie Higginbotham D.O.; Physician,Non-Staff Mylene The [place] [id number] Patient Name: JANINA MARTEL MRN: [facility]:[id number] date: 1990 Sex: F Assigned Patient Location: [facility] Current Patient Location: [facility] Accession/Order Number: [id number] Exam Date: 11/18/2024 09:24 Report Date: 11/18/2024 09:26 At the request of: SAMMIE HIGGINBOTHAM DO Procedure: US OB BPP w non-stress BIOPHYSICAL PROFILE: CLINICAL INFORMATION: Gestational diabetes mellitus COMPARISON: 11/12/2024. There is a single live intrauterine gestation in cephalic presentation. The reported gestational age is 33 weeks 0 days. The heart rate measures 157 beats per minute. FINDINGS: TONE: 1 or [...] greater than 2 cm [Y] 2/2 JUSTA: 10.8 cm. This is in low-normal range. Total score: 8/ US/ OB BPP w non-stress IMPRESSION: NORMAL BIOPHYSICAL PROFILE . Impression dictated by: Madie Long M.D. 11/18/2024 9:26 AM Dictation Location: [place] [address] Electronically authenticated by: [id number] Y Date: 11/18/2024 09:26 Dictated By: Madie Long M.D. Signed By: 11/18/2428 DD/ 5 TD/TT: Power Hair Clipper: [facility] Radiology Study observation (narrative) [facility] [place] OB BPP W NON-STRESS Ordered By: Radiologist Radiology on 11-18-2024 [facility] Work Phone: TB TOTAL PROTEIN 24 HOUR UR INEon 11-13-2024 Interpretation and review of laboratory results Abnormal [facility] [employer] re Protein (U) [Mass/Vol] 10.8 mg/dL [facility] - 11.9 mg/dL [facility] [place] TBH TOTAL PROTEIN 24 HOUR URINE 302.4 High [facility] TOTAL VOLUME 24 HOUR URINE 2800 mL/24hr [facility] [place] [facility] Urinalysis macro (dipstick) panel (U)on 11-13-2024 Bilirubin, UA Negative Negative - 4(70) +++ mg/dL [facility] Blood, UA Negative Negative - 50 Dario/mcL [facility] [place] Clarity, UA Clear [facility] [employer] re Color, UA Yellow [facility] Vetiary e Glucose, UA Negative Negative - 2000(110) ++++ mg/dL [facility] Interpretation and review of laboratory results Abnormal [facility] Ketones, UA Positive Negative - 160(16) ++++ mg/dL [facility] Comment on above: 40 Leukocytes, UA Trace Negative - 500+++ Oksana/mcL [facility] Nitrite, UA Negative Negative - Positive [facility] pH, UA 6.5 5 - 9 [facility] Protein, UA Negative Negative - 1999(20) ++++ mg/dL [facility] Spec Grav, UA 1.005 1 - 1.03 [facility] Urobilinogen, UA 0.2 0.2 - 12 mg/dL [facility] Healthcar e US OB BPP W NON-STRESS on 11-12-2024 [place] [address] Ultrasound Report Signed Patient: JANINA MARTEL MR#: [id number] : 1990 Acct:[id number] Age/Sex: 34 / F ADM Date: 11/12/24 Loc: [facility] 254-[address]: Sammie Higginbotham D.O. Ordering Physician: Sammie Higginbotham D.O. Date of Service: 11/12/24 Procedure(s): US OB BPP w non-stress Accession Number(s): [id number] cc: Sammie Higginbotham D.O.; Physician,Non-Staff M.Kaylee The [address] [address] Patient Name: JANINA MARTEL MRN: [facility]:[id number] date: 1990 Sex: F Assigned Patient Location: [facility] Current Patient Location: [facility] Accession/Order Number: [id number] Exam Date: 11/12/2024 12:13 Report Date: 11/12/2024 [...] Long M.D. 11/12/2024 12:14 PM Dictation Location: [place] [address] Electronically authenticated by: [id number] Y Date: 11/12/2024 12:14 Dictated By: Madie Long M.D. Signed By: 11/12/24 1217 DD/ TD/TT: Power Hair Clipper: [facility] Radiology, Radiologist, MD - 11/12/2024 [place] [address] Ultrasound Report Signed Patient: JANINA MARTEL MR#: [id number] : 1990 Acct:[id number] Age/Sex: 34 / F ADM Date: 11/12/24 Loc: [facility] 254-[address]: Sammie Higginbotham D.O. Ordering Physician: Sammie Higginbotham D.O. Date of Service: 11/12/24 Procedure(s): US OB BPP w non-stress Accession Number(s): [id number] cc: Sammie Higginbotham D.O.; Physician,Non-Staff Mylene The [address] [address] Patient Name: JANINA MARTEL MRN: [facility]:[id number] date: 1990 Sex: F Assigned Patient Location: [facility] Current Patient Location: [facility] Accession/Order Number: [id number] Exam Date: 11/12/2024 12:13 Report Date: 11/12/2024 [...] Long M.D. 11/12/2024 12:14 PM Dictation Location: [place] [address] Electronically authenticated by: [id number] Y Date: 11/12/2024 12:14 Dictated By: Madie Long M.D. Signed By: 11/12/24 1217 DD/ 1214 TD/TT: Power Hair Clipper: [facility] Radiology Study observation (narrative) [facility] OB BPP W NON-STRESS Ordered By: Radiologist Radiology on 11-12-2024 [facility] [employer] Work Phone: US OB FOLLOW UP [...] II, MD, PHD at 30-Oct-2024 11:19:03 PM [facility] Normal Not Available Comment on above: Order Comment: US OB SCAN FOR GROWTH Estimated Date of Delivery: 01/06/25 Gestational Age as of 10/01/2024: 26w1d Urinalysis macro (dipstick) panel (U)on 10-30-2024 Bilirubin, UA Negative Negative - 4(70) +++ mg/dL [facility] Blood, UA Negative Negative - 50 Dario/mcL [facility] Clarity, UA Clear [facility] Healthhi re Color, UA Yellow [facility] Health[facility] e Glucose, UA Negative Negative - 1999(110) ++++ mg/dL [facility] Interpretation and review of laboratory results Abnormal [facility] re Ketones, UA Negative Negative - 160(16) ++++ mg/dL [facility] Leukocytes, UA Positive Negative - 500+++ Oksana/mcL [facility] Comment on above: small Nitrite, UA Negative Negative - Positive [facility] pH, UA 7 5 - 9 [facility] Healthcar e Protein, UA Negative Negative - 1999(20) ++++ mg/dL [facility] Spec Grav, UA 1.01 1 - 1.03 [facility] Urobilinogen, UA 0.2 0.2 - 12 mg/dL [facility] Healthcar e Urinalysis macro (dipstick) panel (U)on 09-02-2024 Bilirubin, UA Negative Negative - 4(70) +++ mg/dL [facility] Blood, UA Negative Negative - 50 Dario/mcL [facility] Clarity, UA Clear [facility] [employer] re Color, UA Yellow [facility] [employer] Glucose, UA Negative Negative - 1999(110) ++++ mg/dL [facility] Interpretation and review of laboratory results Abnormal [facility] Learning [employer] re Ketones, UA Negative Negative - 160(16) ++++ mg/dL [facility] Leukocytes, UA Positive Negative - 500+++ Oksana/mcL [facility] Comment on above: Large Nitrite, UA Negative Negative - Positive [facility] pH, UA 7 5 - 9 [facility] V[employer]iary e Protein, UA Negative Negative - 1999(20) ++++ mg/dL [facility] Spec Grav, UA 1.01 1 - 1.03 [facility] Urobilinogen, UA 0.2 0.2 - 12 mg/dL [facility] Vetiary e US OB 14+ WEEKS ANATOMY SCAN [...] II, MD, PHD at 22-Aug-2024 08:46:17 AM [facility] Normal Not Available Comment on above: Order Comment: US OB ANATOMY SINGLE W US OB CERVICAL LENGTH Estimated Date of Delivery: 01/06/25 Gestational Age as of 08/05/2024: 18w0d IGP,APTIMA HPV,AGE GDLNon AGE GDLN ACOG TESTING Note . [facility] Comment on above: TESTS RESULT FLAG U NITS REF RANGE LAB Clinician Provided Cytology Information Source.............Cervix Other.............. No. of containers..01 ThinPrep Vial Age Algo ACOG Maria Antonia... 30-65 01 FLAG LEGEND: L-Low Normal,H-High Normal,LL-Alert Low,HH-Alert High <-Panic Low,>-Panic High,A-Abnormal,AA-Critical Abnormal Performed at: 01 =G [facility] [place] [address] Asha Garza MD, HPV APTIMA Negative Negative [facility] Comment on above: This nucleic acid am plification test detects fourteen high- risk HPV types (16,18,31,33,35,39,45,51,52,56,58,59,66,68) without differentiation. Performed at: =G - [facility], [place] [id number] Machine Sprayer: Asha Garza MD, Phone: [phone] Performed at: - [facility], [place] [id number] Machine Sprayer: Asha Garza MD, Phone: [phone] IGP, APTIMA HPV, RFX 16/18,45 Note . [facility] Comment on above: TESTS RESULT FLAG UN ITS REF RANGE LAB DIAGNOSIS: 02 NEGATIVE FOR INTRAEPITHELIAL LESION OR MALIGNANCY. Specimen adequacy: 02 Satisfactory for evaluation. Endocervical and/or squamous metaplastic cells (endocervical component) are present. Performed by: Rajani Pablo, Ammunition Supervisor (ASCP) . 02 Note: Note 02 The [...] Low,>-Panic High,A-Abnormal,AA-Critical Abnormal Performed at: [address] [address] Asha Garza MD, SPATULA-ALONE CERVIX [facility] Healthcar e RECURRENT VAGINITIS (HTRX)on 08-07-2024 ATOPOBIUM VAGINAE 0 [facility] ATOPOBIUM VAGINAE Not detected [facility] BVAB 2,3 (BACTERIAL VAGINOSIS ASSOCIATED BACTERIA 2, 3); MOBILUNCUS SPP 0 [facility] BVAB 2,3 (BACTERIAL VAGINOSIS ASSOCIATED BACTERIA 2, 3); MOBILUNCUS SPP Not detected [facility] ELODIA ALBICANS, PARAPSILOSIS, TROPICALIS 0 [facility] ELODIA ALBICANS, PARAPSILOSIS, TROPICALIS Not detected [facility] ELODIA GLABRATA 0 [facility] Hea lthcare EL[place] GLABRATA Not detected [facility] ealthcare [facility] KRUSEI [facility] KRUSEI Not [facility] CHLAMYDIA TRACHOMATIS 0 [facility] CHLAMYDIA TRACHOMATIS Not detected [facility] GARDNERELLA VAGINALIS 0 [facility] GARDNERELLA VAGINALIS Not detected [facility] MEGASPHAERA (TYPES 1, 2) 0 [facility] MEGASPHAERA (TYPES 1, 2) Not detected [facility] MYCOPLASMA GENITALIUM 0 [facility] MYCOPLASMA GENITALIUM Not detected [facility] NEISSERIA GONORRHOEAE 0 [facility] NEISSERIA GONORRHOEAE Not detected [facility] TRICHOMONAS VAGINALIS 0 [facility] TRICHOMONAS VAGINALIS Not detected [facility] GLUCOSE TOLERANCE 3 HOURon 0 08-03-2024 GLUCOSE TOLERANCE 3 HOUR mg/dL [facility] Comment on above: GLU FAST 94 (<95) Co l: 08/03/24 0809 GLU 1HR 163 (<180) Col: 08/03/24 0912 GLU 2HR 114 (<155) Col: 08/03/24 1012 GLU 3HR 109 (<140) Col: 08/03/24 1112 [facility] Healthcar e GLUCOSE 1 HOURon 07-27-2024 Glucose [Mass/Vol] 151 mg/dL High NINF - 13 0 mg/dL [facility] Interpretation and review of laboratory results Abnormal [facility] Healthca re CL[facility] Healthcar e ALL CBC WITH AUTO DIFFon BASOPHILS ABSOLUTE AUTO 0 [facility] Basophils/100 WBC (Bld) 0.3 % 0.2 - 2.0 % [facility] Eosinophils/100 WBC (Bld) 0.2 % Low 0.9 - 7.0 % [facility] Erythrocyte distribution width (RBC) [Ratio] 13.5 % 11.0 - 15.0 % [facility] Hematocrit (Bld) [Volume fraction] 36 % 36.0 - 48.0 % [facility] Healthcar e Hemoglobin (Bld) [Mass/Vol] 12.5 g/dL 12.0 - 16.0 g/dL [facility] IMMATURE GRANULOCYTES ABS AUTO 0.05 High [facility] Immature granulocytes/100 WBC (Bld) 0.4 % 0.0 - 0.5 % [facility] Interpretation and review of laboratory results Abnormal [facility] LYMPHOCYTES ABSOLUTE AUTO 2.1 [facility] Lymphocytes/100 WBC (Bld) 16 % Low 20.5 - 60.0 % [facility] MCH (RBC) [Entitic mass] 30.1 pg 26.7 - 34.0 pg [facility] MCHC (RBC) [Mass/Vol] 34.7 g/dL 29.9 - 35.2 g/dL [facility] MCV (RBC) [Entitic vol] 86.7 fL 81.0 - 99.0 fL [facility] MONOCYTES ABSOLUTE AUTO 0.9 High [facility] Monocytes/100 WBC (Bld) 6.6 % 1.7 - 12.0 % [facility] NEUTROPHILS ABSOLUTE AUTO 9.9 High [facility] Neutrophils/100 WBC (Bld) 76.5 % High 43.0 - 75.0 % [facility] Platelet mean volume (Bld) [Entitic vol] 10.7 fL 9.5 - 13.5 fL [facility] TBH EO # 0 [facility] PLT 276 [facility] RBC 4.15 Low [facility] TBH WBC 12.9 High [facility] HCG ( test) Ql (U)o n 06-07-2024 Interpretation and review of laboratory results Abnormal [facility] Preg Test, Ur Positive Negative [facility] care [facility] Health[facility] e US OB TRANSVAGINALon [...] x 4.7 cm (8 weeks, 3 days). [place] rump length is 2.5 cm (9 weeks, [...] UA Negative Negative - 4(70) +++ mg/dL [facility] Blood, UA Negative Negative - 50 Dario/mcL [facility] Clarity, UA Clear [facility] re Color, UA Yellow [facility] Glucose, UA Negative Negative - 1999(110) ++++ mg/dL [facility] Interpretation and review of laboratory results Normal [facility] re Ketones, UA Negative Negative - 160(16) ++++ mg/dL [facility] Leukocytes, UA Negative Negative - 500+++ Oksana/mcL [facility] Nitrite, UA Negative Negative - Positive [facility] pH, UA 5.5 5 - 9 [facility] Protein, UA Negative Negative - 1999(20) ++++ mg/dL [facility] Spec Grav, UA 1.015 1 - 1.03 [facility] Urobilinogen, UA 0.2 0.2 - 12 mg/dL [facility] PREG QUANT HCGon 11-2 024 HCG QUANTITATIVE <1 mIU/mL [facility] Comment on above: 5-50 0.2-1 WEEK 50-500 1-2 WEEKS 100-5,000 2-3 WEEKS 500-10,000 3-4 WEEKS 1,000-50,000 4-5 WEEKS 10,000-100,000 5-6 WEEKS 15,000-200,000 6-8 WEEKS 10,000-100,000 2-3 MONTHS [facility] e TBH PREG QUANT HCGon 10-25-2 024 HCG QUANTITATIVE 15 mIU/mL [facility] ltare Comment on above: 5-50 0.2-1 WEEK 50-500 1-2 WEEKS 100-5,000 2-3 WEEKS 500-10,000 3-4 WEEKS 1,000-50,000 4-5 WEEKS 10,000-100,000 5-6 WEEKS 15,000-200,000 6-8 WEEKS 10,000-100,000 2-3 MONTHS [facility] Healthcar e TBH PREG QUANT HCGon 10-21-2 024 HCG QUANTITATIVE 22 mIU/mL [facility] ltare Comment on above: 5-50 0.2-1 WEEK 50-500 1-2 WEEKS 100-5,000 2-3 WEEKS 500-10,000 3-4 WEEKS 1,000-50,000 4-5 WEEKS 10,000-100,000 5-6 WEEKS 15,000-200,000 6-8 WEEKS 10,000-100,000 2-3 MONTHS [facility] TBH PREG QUANT HCGon 03-23- 024 HCG QUANTITATIVE 32 mIU/mL [facility] Comment on above: 5-50 0.2-1 WEEK 50-500 1-2 WEEKS 100-5,000 2-3 WEEKS 500-10,000 3-4 WEEKS 1,000-50,000 4-5 WEEKS 10,000-100,000 5-6 WEEKS 15,000-200,000 6-8 WEEKS 10,000-100,000 2-3 MONTHS [facility] PAP ACOG PANEL 2: 21 to 29on 09-22-2021 . . Normal [facility] Comment on above: Performed By: #### [id number] #### [facility] [address] [place] [address] Dr. Yariel Huynh Age Gdln ACOG Testing - Normal [facility] Comment on above: Performed By: #### [id number] #### [facility] [address] [place] [address] [address] Yariel Huynh DIAGNOSIS: Comment [facility] Comment on above: Result Comment: NEGA TIVE FOR INTRAEPITHELIAL LESION OR MALIGNANCY. Performed By: #### [id number] #### [facility] [address] [place] [address] Dr. Yariel Huynh Methodology: Comment [facility] Comment on above: Result Comment: This liquid based ThinPrep(R) pap test was screened with the use of an image guided system. Performed By: #### 4 [id number] #### [facility] [address] [place] [address] [address] Yariel Huynh Note: Comment [facility] Comment on above: Result Comment: The Pap smear is a screening test designed to aid in the detection of premalignant and malignant conditions of the uterine cervix. It is not a diagnostic procedure and should not be used as the sole means of detecting cervical cancer. Both false-positive and false-negative reports do occur. . Performed By: #### [id number] #### [facility] [address] [place] [address] Dr. Yariel Huynh Performed by: Comment Normal [facility] Comment on above: Result Comment: Carole Lee, Ammunition Supervisor (ASCP) Performed By: #### [id number] #### [facility] [address] [place] [address] Dr. Yariel Huynh Reflex Criteria: Comment Normal [facility] Comment on above: Result Comment: The HPV DNA reflex criteria were not met with this specimen result therefore, no HPV testing was performed. . Performed By: #### [id number] #### [facility] [address] [place] [address] Dr. Yariel uHynh Specimen adequacy: Comment Normal [facility] Comment on above: Result Comment: Sati sfactory for evaluation. Endocervical and/or squamous metaplastic cells (endocervical component) are present. Performed By: #### 4 [id number] #### [facility] [address] [place] [address] Dr. Yariel Huynh RUBELLA AB IGGon 12-10-2020 Rubella Antibodies, IgG 1.46 index Normal Immune >0.99 [facility] Comment on above: Result Comment: Non- immune <0.90 Equivocal 0.90 - 0.99 Immune >0.99 Performed By: #### R UBIGG #### [facility] [address] [place] [address] Clyde Ramachandran CBC AUTO DIFFon 12-09-2020 BASO # 0.1 103/ul Normal 0.0-0.1 [facility] Comment on above: Performed By: #### [id number] #### [facility] [address] [place] [address] Dr. Yariel Huynh Basophils/100 WBC (Bld) 0.3 % Normal 0.2-2.0 [facility] Comment on above: Performed By: #### 4 [id number] #### [facility] [address] [place] [address] Dr. Yariel Huynh EO # 0.0 103/ul Normal 0.0-0.7 [facility] Comment on above: Performed By: #### [id number] #### [facility] [address] [place] [address] Dr. Yariel Huynh Eosinophils/100 WBC (Bld) 0.1 % Critically low 0.9-7.0 [facility] Comment on above: Performed By: #### 4 [id number] #### [facility] [address] [place] [address] Dr. Yariel Huynh Erythrocyte distribution width (RBC) [Ratio] 13.9 % Normal 11.0-15.0 [facility] Comment on above: Performed By: #### [id number] #### [facility] [address] [place] [address] Dr. Yariel Huynh Hematocrit (Bld) [Volume fraction] 29.5 % Critically low 36.0-48.0 [facility] Comment on above: Performed By: #### [id number] #### [facility] [address] [place] [address] Dr. Yariel Huynh Hemoglobin (Bld) [Mass/Vol] 9.3 g/dL Critically low 12.0-16.0 [facility] Comment on above: Performed By: #### 4 [id number] #### [facility] [address] [place] [address] Dr. Yariel Huynh IG # 0.08 10e3/ul Critically high 0.00-0.03 [facility] Comment on above: Performed By: #### [id number] #### [facility] [address] [place] [address] Dr. Yariel Huynh IG % 0.5 % Normal 0.0-0.5 [facility] Comment on above: Performed By: #### 4 [id number] #### [facility] [address] [place] [address] Dr. Yariel Huynh LYMPH # 1.7 103/ul Normal 1.2-3.8 [facility] Comment on above: Performed By: #### 4 [id number] #### [facility] [address] [place] [address] Dr. Yariel Huynh Lymphocytes/100 WBC (Bld) 10.8 % Critically low 20.5-60.0 [facility] Comment on above: Performed By: #### 4 [id number] #### [facility] [address] [place] [address] Dr. Yariel Huynh MANUAL DIFF REQ NO Normal [facility] Comment on above: Performed By: #### 4 [id number] #### [facility] [address] [place] [address] Dr. Yariel Huynh MCH (RBC) [Entitic mass] 26.2 pg Critically low 26.7-34.0 [facility] Comment on above: Performed By: #### 4 [id number] #### [facility] [address] [place] [address] Dr. Yariel Huynh MCHC (RBC) [Mass/Vol] 31.5 g/dL Normal 29.9-35.2 [facility] Comment on above: Performed By: #### 4 [id number] #### [facility] [address] [place] [address] Dr. Yariel Huynh MCV (RBC) [Entitic vol] 83.1 fL Normal 81.0-99.0 [facility] Comment on above: Performed By: #### 4 [id number] #### [facility] [address] [place] [address] Dr. Yariel Huynh MONO # 0.8 103/ul Normal 0.3-0.8 [facility] Comment on above: Performed By: #### 4 [id number] #### [facility] [address] [place] [address] Dr. Yariel Huynh Monocytes/100 WBC (Bld) 5.2 % Normal 1.7-12.0 [facility] Comment on above: Performed By: #### 4 [id number] #### [facility] [address] [place] [address] Dr. Yariel Huynh NEUT # 12.8 103/ul Critically high 1.4-6.5 [facility] Comment on above: Performed By: #### 4 [id number] #### [facility] [address] [place] [address] Dr. Yariel Huynh Neutrophils/100 WBC (Bld) 83.1 % Critically high 43.0-75.0 [facility] Comment on above: Performed By: #### 4 [id number] #### [facility] [address] [address] [address] Yariel Huynh Platelet mean volume (Bld) [Entitic vol] 12.6 fL Normal 9.5-13.5 [facility] Comment on above: Performed By: #### 4 [id number] #### [facility] [address] [address] [address] Yariel Huynh PLT 203 103/ul Normal 150-450 [facility] Comment on above: Performed By: #### 4 [id number] #### [facility] [address] [place] [address] Dr. Yariel Huynh RBC 3.55 106/ul Critically low 4.20-5.40 [facility] Comment on above: Performed By: #### 4 [id number] #### [facility] [address] [place] [address] Dr. Yariel Huynh WBC 15.4 103/ul Critically high 4.0-11.0 [facility] Comment on above: Performed By: #### 4 [id number] #### [facility] [address] [place] [address] Dr. Yariel Huynh ASYMPTOMATIC COVID-19 ANTIGE Non 12-08-2020 EUA Statement SEE BELOW Normal [facility] Comment on above: Result Comment: This test [...] is revoked sooner. Performed By: #### 4 [id number] #### [facility] [address] [place] [address] Dr. Yariel Huynh SARS-CoV-2 (COVID-19) RNA ESTEBAN+probe Ql (Unsp spec) Negative Normal NEGATIVE [facility] Comment on above: Result Comment: Nega tive results are presumptive. They do not preclude infection and should not be used as the sole basis for treatment decisions. Additional confirmatory testing by a molecular method should be considered. Performed By: #### 4 [id number] #### [facility] [address] [place] [address] Dr. Yariel Huynh BUNon 12-08-2020 Urea nitrogen [Mass/Vol] 15.0 mg/dL Normal 7.0-17.0 [facility] Comment on above: Performed By: #### 4 [id number] #### [facility] [address] [place] [address] Dr. Yariel Huynh CBC AUTO DIFFon 12-08-2020 BASO # 0.0 103/ul Normal 0.0-0.1 [facility] Comment on above: Performed By: #### 4 [id number] #### [facility] [address] [place] [address] Dr. Yariel Huynh Basophils/100 WBC (Bld) 0.3 % Normal 0.2-2.0 [facility] Comment on above: Performed By: #### 4 [id number] #### [facility] [address] [place] [address] Dr. Yariel Huynh EO # 0.0 103/ul Normal 0.0-0.7 [facility] Comment on above: Performed By: #### 4 [id number] #### [facility] [address] [place] [address] Dr. Yariel Huynh Eosinophils/100 WBC (Bld) 0.4 % Critically low 0.9-7.0 [facility] Comment on above: Performed By: #### 4 [id number] #### [facility] [address] [place] [address] Dr. Yariel Huynh Erythrocyte distribution width (RBC) [Ratio] 13.8 % Normal 11.0-15.0 [facility] Comment on above: Performed By: #### 4 [id number] #### [facility] [address] [place] [address] Dr. Yariel Huynh Hematocrit (Bld) [Volume fraction] 31.8 % Critically low 36.0-48.0 [facility] Comment on above: Performed By: #### 4 [id number] #### [facility] [address] [place] [address] Dr. Yariel Huynh Hemoglobin (Bld) [Mass/Vol] 10.1 g/dL Critically low 12.0-16.0 [facility] Comment on above: Performed By: #### 4 [id number] #### [facility] [address] [place] [address] Dr. Yariel Huynh IG # 0.07 10e3/ul Critically high 0.00-0.03 [facility] Comment on above: Performed By: #### 4 [id number] #### [facility] [address] [place] [address] Dr. Yariel Huynh IG % 0.7 % Critically high 0.0-0.5 [facility] Comment on above: Performed By: #### 4 [id number] #### [facility] [address] [place] [address] Dr. Yariel Huynh LYMPH # 2.3 103/ul Normal 1.2-3.8 [facility] Comment on above: Performed By: #### 4 [id number] #### [facility] [address] [place] [address] Dr. Yariel Huynh Lymphocytes/100 WBC (Bld) 22.7 % Normal 20.5-60.0 [facility] Comment on above: Performed By: #### 4 [id number] #### [facility] [address] [place] [address] Dr. Yariel Huynh MANUAL DIFF REQ NO Normal [facility] Comment on above: Performed By: #### 4 [id number] #### [facility] [address] [place] [address] Dr. Yariel Huynh MCH (RBC) [Entitic mass] 26.7 pg Normal 26.7-34.0 [facility] Comment on above: Performed By: #### 4 [id number] #### [facility] [address] [place] [address] Dr. Yariel Huynh MCHC (RBC) [Mass/Vol] 31.8 g/dL Normal 29.9-35.2 [facility] Comment on above: Performed By: #### 4 [id number] #### [facility] [address] [place] [address] Dr. Yariel Huynh MCV (RBC) [Entitic vol] 84.1 fL Normal 81.0-99.0 [facility] Comment on above: Performed By: #### 4 [id number] #### [facility] [address] [place] [address] Dr. Yariel Huynh MONO # 0.6 103/ul Normal 0.3-0.8 [facility] Comment on above: Performed By: #### 4 [id number] #### [facility] [address] [place] [address] Dr. Yariel Huynh Monocytes/100 WBC (Bld) 6.3 % Normal 1.7-12.0 [facility] Comment on above: Performed By: #### 4 [id number] #### [facility] [address] [place] [address] Dr. Yariel Huynh NEUT # 7.0 103/ul Critically high 1.4-6.5 [facility] Comment on above: Performed By: #### 4 [id number] #### [facility] [address] [place] [address] Dr. Yariel Huynh Neutrophils/100 WBC (Bld) 69.6 % Normal 43.0-75.0 [facility] Comment on above: Performed By: #### 4 [id number] #### [facility] [address] [place] [address] Dr. Yariel Huynh Platelet mean volume (Bld) [Entitic vol] 12.9 fL Normal 9.5-13.5 [facility] Comment on above: Performed By: #### 4 [id number] #### [facility] [address] [place] [address] Dr. Yariel Huynh PLT 193 103/ul Normal 150-450 [facility] Comment on above: Performed By: #### 4 [id number] #### [facility] [address] [place] [address] Dr. Yariel Huynh RBC 3.78 106/ul Critically low 4.20-5.40 [facility] Comment on above: Performed By: #### 4 [id number] #### [facility] [address] [place] [address] Dr. Yariel Huynh WBC 10.1 103/ul Normal 4.0-11.0 [facility] Comment on above: Performed By: #### 4 [id number] #### [facility] [address] [place] [address] Dr. Yariel Huynh CREATININEon 12-08-2020 Creatinine [Mass/Vol] 0.80 mg/dL Normal 0.52-1.04 [facility] Comment on above: Performed By: #### L DH, URIC, AST, ALT, BUN, CREA #### [facility] [address] [place] [address] Clyde Madie EGFR-AF EQUATORIAL GUINEAN >60 Normal >=60 [facility] Comment on above: Performed By: #### L DH, URIC, AST, ALT, BUN, CREA #### [facility] [address] [place] [address] Clyde Madie EGFR-NON AF EQUATORIAL GUINEAN >60 Normal >=60 [facility] Comment on above: Performed By: #### L DH, URIC, AST, ALT, BUN, CREA #### [facility] [address] [place] [address] Clyde Delgadilloen DRUG SCREEN RAPID (URINE)on 12-08-2020 AMP Negative Normal NEGATIVE [facility] Comment on above: Performed By: #### 4 [id number] #### [facility] [address] [place] [address] Dr. Yariel Huynh BAR Negative Normal NEGATIVE [facility] Comment on above: Performed By: #### 4 [id number] #### [facility] [address] [place] [address] Dr. Yariel Huynh BUP Negative Normal NEGATIVE [facility] Comment on above: Performed By: #### 4 [id number] #### [facility] [address] [place] [address] Dr. Yariel Huynh BZO Negative Normal NEGATIVE [facility] Comment on above: Performed By: #### 4 [id number] #### [facility] [address] [place] [address] Dr. Yariel Huynh ROSA Negative Normal NEGATIVE [facility] Comment on above: Performed By: #### 4 [id number] #### [facility] [address] [place] [address] Dr. Yariel Huynh CUT-OFFS SEE BELOW Normal [facility] Comment on above: Result Comment: AMP (Amphetamine): 500ng/mL, BAR (Barbituates): 200 ng/mL, BZO (Benzodiazepines): 150 ng/mL, BUP (Buprenorphine): 10 ng/mL, ROSA (Cocaine): 150 ng/mL, mAMP (Methamphetamine): 500 ng/mL, MTD (Methadone): 200 ng/mL, OPI (Opiates): 100 ng/mL, OXY (Oxycodone): 100 ng/mL, PCP (Phencyclidine): 25 ng/mL, PPX (Propoxyphene): 300 ng/mL, THC (Cannabinoids): 50 ng/mL, TCA (Trycyclic Antidepressants): 300 ng/mL Performed By: #### 4 [id number] #### [facility] [address] [place] [address] Dr. Yariel Huynh DRUG CUT HEADER DRUG CLASS TEST SYSTEM CUT-OFF CONCENTRATIONS ARE FOLLOWS: Normal [facility] Comment on above: Performed By: #### 4 [id number] #### [facility] [address] [place] [address] Dr. Yariel Huynh mAMP Negative Normal NEGATIVE [facility] Comment on above: Performed By: #### 4 [id number] #### [facility] [address] [place] [address] Dr. Yariel Huynh MTD Negative Normal NEGATIVE [facility] Comment on above: Performed By: #### 4 [id number] #### [facility] [address] [place] [address] Dr. Yariel Huynh OPI Negative Normal NEGATIVE [facility] Comment on above: Performed By: #### 4 [id number] #### [facility] [address] [place] [address] Dr. Yariel Huynh OXY Negative Normal NEGATIVE [facility] Comment on above: Performed By: #### 4 [id number] #### [facility] [address] [place] [address] Dr. Yariel Huynh PCP Negative Normal NEGATIVE [facility] Comment on above: Performed By: #### 4 [id number] #### [facility] [address] [place] [address] Dr. Yariel Huynh PPX Negative Normal NEGATIVE [facility] Comment on above: Performed By: #### 4 [id number] #### [facility] [address] [place] [address] Dr. Yariel Huynh TCA Negative Normal NEGATIVE [facility] Comment on above: Performed By: #### 4 [id number] #### [facility] [address] [place] [address] Dr. Yariel Huynh THC Negative Normal NEGATIVE [facility] Comment on above: Performed By: #### 4 [id number] #### [facility] [address] [place] [address] Dr. Yariel Huynh LDHon 12-08-2020 LDH 163 U/L Normal 122-222 [facility] Comment on above: Performed By: #### L DH, URIC, AST, ALT, BUN, CREA #### [facility] [address] [place] [address] Clyde Delgadilloen SGOTon 12-08-2020 AST [Catalytic activity/Vol] 15 U/L Normal 14-36 [facility] Comment on above: Performed By: #### L DH, URIC, AST, ALT, BUN, CREA #### [facility] [address] [place] [address] Clyde Delgadilloen SGPTon 12-08-2020 ALT [Catalytic activity/Vol] 12 U/L Normal 9-52 [facility] Comment on above: Performed By: #### L DH, URIC, AST, ALT, BUN, CREA #### [facility] [address] [place], [place] [address] Clyde Ramachandran TYPE AND SCREENon 12-08-2020 TYPE AND SCREEN Negative Normal [facility] Comment on above: Performed By: #### T NS #### [facility] [address] [place], [place] [address] Clyde Ramachandran URIC ACID SERUMon 12-08-2020 Urate [Mass/Vol] 5.0 mg/dL Normal 2.5-6.2 [facility] Comment on above: Performed By: #### L DH, URIC, AST, ALT, BUN, CREA #### [facility] [address] [place], [place] [address] Clyde Ramachandran US PREG BIOPHY W NON [...] POLLO PABLO Date: 2020-12-08 08:45 Normal [facility] US PREG BIOPHY W NON STRESSo n [...] profile score: 8.0 Electronically authenticated by: SCOTT Pina: 2020-12-01 10:52 Normal [facility] Vital Signs Date Time Vital Sign Value Performing Clinician Roxann torres 11-13-2024 10:28-0400 Body weight 78.65 kg Diya GEE Work Phone: [facility] 11-13-2024 10:28-0400 Diastolic blood pressure 78 mm[Hg] Diya GEE Work Phone: [facility] 11-13-2024 10:28-0400 Systolic blood pressure 130 mm[Hg] Diya GEE Work Phone: [facility] 10-30-2024 10:31-0400 Body weight 78.53 kg Sammie Neftaly DO Work Phone: [facility] 10-30-2024 10:31-0400 Diastolic blood pressure 78 mm[Hg] Sammie Neftaly DO Work Phone: [facility] 10-30-2024 10:31-0400 Systolic blood pressure 120 mm[Hg] Sammie Neftaly DO Work Phone: [facility] 10-01-2024 09:38-0400 Body weight 75.48 kg Lin Sellers [employer] Work Phone: [facility] 10-01-2024 09:38-0400 Diastolic blood pressure 76 mm[Hg] Lin Verito [employer] Work Phone: [facility] 10-01-2024 09:38-0400 Systolic blood pressure 120 mm[Hg] Lin Verito [employer] Work Phone: [facility] 09-02-2024 09:46-0400 Body weight 71.85 kg Sammie Neftaly DO Work Phone: [facility] 09-02-2024 09:46-0400 Diastolic blood pressure 82 mm[Hg] Sammie Neftaly DO Work Phone: [facility] 09-02-2024 09:46-0400 Systolic blood pressure 122 mm[Hg] Sammie Neftaly DO Work Phone: [facility] 08-05-2024 09:52-0500 Body weight 68.49 kg Diya GEE Work Phone: [facility] 08-05-2024 09:52-0500 Diastolic blood pressure 78 mm[Hg] Diya GEE Work Phone: [facility] 08-05-2024 09:52-0500 Systolic blood pressure 124 mm[Hg] Diya GEE Work Phone: [facility] 07-08-2024 09:52-0500 Body weight 67.31 kg Sammie Neftaly DO Work Phone: [facility] 07-08-2024 09:52-0500 Diastolic blood pressure 70 mm[Hg] Sammie Neftaly DO Work Phone: [facility] 07-08-2024 09:52-0500 Systolic blood pressure 118 mm[Hg] Sammie Neftaly DO Work Phone: [facility] 06-07-2024 09:47-0500 Body weight 66.22 kg Noms Nurse [facility] 06-07-2024 09:47-0500 Diastolic blood pressure 72 mm[Hg] Noms Nurse [facility] 06-07-2024 09:47-0500 Systolic blood pressure 122 mm[Hg] Noms Nurse [facility] Encounters Encounter Date Encounter Type Care Provider Facility Start: 11-18-2024 End: 11-18-2024 Clinisync Result Encounter Sammie Neftaly DO Work Phone: [facility] External Department Unsolicited Start: 11-18-2024 End: 11-18-2024 Clinisync Result Encounter Sammie Neftaly DO Work Phone: [facility] External Department Unsolicited Start: 11-13-2024 End: 11-13-2024 Bamboo flowsheet Diya GEE Work Phone: [facility] Start: 11-13-2024 End: 11-13-2024 Bamboo flowsheet Diya GEE Work Phone: [facility] Start: 11-13-2024 End: 11-13-2024 Clinisync Result Encounter Sammie Neftaly DO Work Phone: [facility] External Department Unsolicited Start: 11-13-2024 End: 11-13-2024 [...] 10-01-2024 End: 10-01-2024 Bamboo flowsheet Lin Sellers [employer] Work Phone: [facility] Start: 10-01-2024 End: 10-01-2024 Bamboo flowsheet Lin Sellers [employer] Work Phone: [facility] Start: 10-01-2024 End: 10-01-2024 Office outpatient visit 15 minutes Lin Sellers [employer] Work Phone: [facility] Comment on above: Second trimester pre gnancy; size inconsistent with dates; H/O pre-eclampsia in prior , currently Start: 10-01-2024 End: 10-01-2024 ambulatory LIN VERITO Not Available Start: 09-02-2024 End: 09-02-2024 Bamboo flowsheet Sammie Neftaly DO Work Phone: [facility] Start: 09-02-2024 End: 09-02-2024 Bamboo flowsheet Sammie Neftaly DO Work Phone: [facility] Start: 09-02-2024 End: 09-02-2024 Office outpatient visit 15 minutes Sammie Neftaly DO Work Phone: [facility] Comment on above: Second trimester pre gnancy; 22 weeks gestation of ; Diabetes mellitus screening Start: 09-02-2024 End: 09-02-2024 ambulatory SAMMIE NEFTALY Not Available Start: 08-21-2024 End: 08-21-2024 ambulatory SAMMIE NEFTALY Not Available Start: 08-05-2024 End: 08-05-2024 Bamboo flowsheet Diya GEE Work Phone: [facility] Start: 08-05-2024 End: 08-08-2024 Bamboo flowsheet Diya GEE Work Phone: [facility] Start: 08-05-2024 End: 08-08-2024 Clinisync Result Encounter Diya GEE Work Phone: [facility] External Department Unsolicited Start: 08-05-2024 End: 08-07-2024 External Result Encounter Diya GEE Work Phone: [facility] External Department Unsolicited Start: 08-05-2024 End: 08-05-2024 Office outpatient visit 15 minutes Diya GEE Work Phone: [facility] Comment on above: Well woman exam with routine gynecological exam; Exposure to STD; Second trimester ; 18 weeks gestation of ; Need for maternal serum alpha-protein (MSAFP) screening; Screening, , for anatomic survey Start: 08-05-2024 End: 08-05-2024 Patient encounter procedure Diya GEE Work Phone: [facility] Start: 08-05-2024 End: 08-05-2024 ambulatory [...] REQUEST Facility: Start: 11-27-2020 End: 11-27-2020 ambulatory NONE LISTED REQUEST Facility: Procedures Date Procedure Procedure Detail Performing Clinician Start: 11-18-2024 OB BPP W NON-STRESS Sammie Neftaly DO Work Phone: Start: 11-13-2024 [facility] TOTAL PROTEIN 24 HOUR URINE Sammie Neftaly DO Work Phone: Start: 11-13-2024 Urnls dip stick/tabl et rgnt non-auto w/o micrscp Diya GEE Work Phone: Start: 11-12-2024 OB BPP W NON-STRESS Sammie Neftaly DO [...] Screening for malign ant neoplasm of cervix [facility] Start: 03-15-2028 Screening for malign ant neoplasm of cervix [facility] Start: 02-03-2025 Influenza vaccination Influenz a Vaccine (Season Ended) [facility] Start: 11-27-2024 End: 11-27-2024 Patient encounter procedure 11/27/2024 11:30 AM EDT Routine [facility] [address] [id number] Sammie Higginbotham, DO [address] [place] [address] [facility] Start: 11-13-2024 End: 11-13-2024 Patient encounter procedure [facility] Comment on above: Arrived Start: 10-30-2024 End: 05-02-2025 US biophysical profile w non stress test US biophysical profile w non stress test Imaging Routine 30 weeks gestation of Third trimester H/O pre-eclampsia in prior , currently Gestational diabetes mellitus (GDM), antepartum, gestational diabetes method of control unspecified Expected: 10/30/2024 (Approximate), Expires: 05/02/2025 [facility] Work Phone: Comment on above: Expected: 10/30/2024 (Approximate), Expires: 05/02/2025 Start: 10-01-2024 End: 01-31-2025 US for US OB follow up transabdominal approach Imaging Routine H/O pre-eclampsia in prior , currently Expected: 10/01/2024, Expires: 01/31/2025 [facility] Work Phone: Comment on above: Expected: 10/01/2024 , Expires: 01/31/2025 Start: 10-01-2024 End: 10-01-2024 Patient encounter procedure [facility] Comment on above: Arrived Start: 09-02-2024 End: 09-02-2025 CBC panel - Blood by Automated count CBC Lab Routine Diabetes mellitus screening Expected: 09/02/2024 (Approximate), Expires: 09/02/2025 [facility] Work Phone: Comment on above: Expected: 09/02/2024 (Approximate), Expires: 09/02/2025 Start: 09-02-2024 End: 09-02-2025 Measurement of glucose 1 hour after glucose challenge for glucose tolerance test Glucose tolerance, 1 hour Lab Routine Diabetes mellitus screening Expected: 09/02/2024 (Approximate), Expires: 09/02/2025 [facility] Comment on above: Expected: 09/02/2024 (Approximate), Expires: 09/02/2025 Start: 09-02-2024 End: 09-02-2024 Patient encounter procedure [facility] Comment on above: Arrived Start: 08-21-2024 End: 08-21-2024 Professional / ancillary services management 08/21/2024 9:00 AM EDT Ancillary Procedure [facility] [address] [id number] [facility] Start: 08-05-2024 End: 09-05-2024 Alpha fetoprotein, maternal Alpha fetoprotein, maternal Lab Routine Need for maternal serum alpha-protein (MSAFP) screening Expected: 08/05/2024 (Approximate), Expires: 09/05/2024 [facility] Comment on above: Expected: 08/05/2024 (Approximate), Expires: 09/05/2024 Start: 08-05-2024 End: 08-05-2025 US for US OB 14+ weeks anatomy scan Imaging Routine Screening, , for anatomic survey Expected: 08/05/2024 (Approximate), Expires: 08/05/2025 [facility] Comment on above: Expected: 08/05/2024 (Approximate), Expires: 08/05/2025 Start: 08-05-2024 End: 08-05-2024 Patient encounter procedure [facility] Comment on above: Arrived Start: 07-08-2024 End: 07-08-2025 Measurement of glucose 1 hour after glucose challenge for glucose tolerance test Glucose tolerance, 1 hour Lab Routine Diabetes mellitus screening Expected: 07/08/2024 (Approximate), Expires: 07/08/2025 [facility] Work Phone: Comment on above: Expected: 07/08/2024 (Approximate), Expires: 07/08/2025 Start: 07-08-2024 End: 07-08-2024 Patient encounter procedure [facility] Comment on above: Arrived Start: 06-07-2024 End: 06-07-2025 ABO/Rh ABO/Rh Lab Routine Missed menses , unspecified gestational age Expected: 06/07/2024 (Approximate), Expires: 06/07/2025 [facility] Comment on above: Expected: 06/07/2024 (Approximate), Expires: 06/07/2025 Start: 06-07-2024 End: 06-07-2025 Blood type and Indirect antibody screen panel - Blood Type and screen Lab Routine Missed menses , unspecified gestational age Expected: 06/07/2024 (Approximate), Expires: 06/07/2025 [facility] Work Phone: Comment on above: Expected: 06/07/2024 (Approximate), Expires: 06/07/2025 Start: 06-07-2024 End: 06-07-2025 Drugs of abuse panel - Urine by Screen method Rapid drug screen, urine Lab Routine , unspecified gestational age Encounter for supervision of normal first in first trimester Expected: 06/07/2024 (Approximate), Expires: 06/07/2025 [facility] Comment on above: Expected: 06/07/2024 (Approximate), Expires: 06/07/2025 Start: 04-19-2024 End: 04-19-2024 ambulatory 04/19/2024 10:00 AM EST Initial [facility] [address] [place] [address] [place] [address] [facility] Start: 04-19-2024 End: 04-19-2024 Professional / ancillary services management 04/19/2024 9:30 AM EST Ancillary Procedure [facility] [address] [place] [address] [place] [address] [facility] Start: 02-04-2024 Influenza vaccination Influenza Vacc ine (#1) [facility] Start: 2013 Screening for malign ant neoplasm of cervix Pap Smear [facility] Bacteria identified in Urine by Culture Urine culture Microbiology Routine Missed menses Ordered: 06/07/2024 [facility] Comment on above: Ordered: 06/07/2024 CBC W Auto Different ial panel - Blood CBC and differential Lab Routine Missed menses , unspecified gestational age Ordered: 06/07/2024 [facility] Comment on above: Ordered: 06/07/2024 CHLAMYDIA TRACHOMATI S (GENITO/STI) CHLAMYDIA TRACHOMATIS (GENITO/STI) Lab Routine Exposure to STD Ordered: 08/05/2024 [facility] Comment on above: Ordered: 08/05/2024 Cytology Cervical or vaginal smear or scraping study Pap Smear Pathology and Cytology Routine Well woman exam with routine gynecological exam Ordered: 08/05/2024 [facility] Comment on above: Ordered: 08/05/2024 Hemoglobin A1c/Hemoglobin.total in Blood Hemoglobin A1c Lab Routine Missed menses , unspecified gestational age Ordered: 06/07/2024 [facility] Comment on above: Ordered: 06/07/2024 Hepatitis B virus surface Ag [Presence] in Serum or Plasma by Immunoassay Hepatitis B surface antigen Lab Routine Missed menses , unspecified gestational age Ordered: 06/07/2024 [facility] Comment on above: Ordered: 06/07/2024 Hepatitis C virus Ab [Presence] in Serum or Plasma by Immunoassay Hepatitis C antibody Lab Routine Missed menses , unspecified gestational age Ordered: 06/07/2024 [facility] Comment on above: Ordered: 06/07/2024 HIV-1/HIV-2 antigen/antibody combination immunoassay HIV-1 and HIV-2 antibodies Lab Routine Missed menses , unspecified gestational age Ordered: 06/07/2024 [facility] Comment on above: Ordered: 06/07/2024 Human papilloma viru s DNA [Presence] in Unspecified specimen by Probe with amplification HPV DNA probe, amplified Microbiology Routine Well woman exam with routine gynecological exam Ordered: 08/05/2024 [facility] Comment on above: Ordered: 08/05/2024 Neisseria gonorrhoea e DNA [Presence] in Unspecified specimen by ESTEBAN with probe detection Neisseria gonorrhea DNA probe, direct Lab Routine Exposure to STD Ordered: 08/05/2024 [facility] Comment on above: Ordered: 08/05/2024 Reagin Ab [Presence] in Serum by RPR RPR Lab Routine Missed menses , unspecified gestational age Ordered: 06/07/2024 [facility] Comment on above: Ordered: 06/07/2024 Rubella antibody, IgG Rubella an tibody, IgG Lab Routine Missed menses , unspecified gestational age Ordered: 06/07/2024 [facility] Comment on above: Ordered: 06/07/2024 SURESWAB(R) ADVANCED VAGINITIS PLUS, TMA SURESWAB(R) ADVANCED VAGINITIS PLUS, TMA Pathology and Cytology Routine Exposure to STD Ordered: 08/05/2024 [facility] Work Phone: Comment on above: Ordered: 08/05/2024 [facility] TOTAL PROTEIN 24 HOUR URINE [facility] TOTAL PROTEIN 24 HOUR URINE Lab Ordered: 11/13/2024 [facility] Comment on above: Ordered: 11/13/2024 Immunizations Immunization Date Immunization Notes Care Provider Khai lopez 05-09-2019 influenza virus vacc ine, unspecified formulation Sammie Higginbotham DO Work Phone: [facility] Payers Date Payer Category Payer Private Health Insurance [facility] MEDICAID [id number] 2017 Medicaid [id number] 1990 Unknown [id number] 2.16.840.1.505138.3.579.2. 593 1992 Unknown [id number] 2.16.840.1.427023.3.579.2. 593 1992 Unknown [id number] 2.16.840.1.322042.3.579.2. 593 1992 Unknown [id number] 2.16.840.1.987484.3.579.2. 593 1992 Unknown [id number] 2.16.840.1.645092.3.579.2. 593 1992 Unknown [id number] 2.16.840.1.359399.3.579.2. 593 1992 Unknown [id number] 2.16.840.1.300920.3.579.2. 593 1992 Unknown [id number] 2.16.840.1.057573.3.579.2. 593 1992 Unknown [id number] 2.16.840.1.043249.3.579.2. 593 1992 Unknown [id number] 2.16.840.1.401153.3.579.2. 1259 1992 Unknown [id number] 2.16.840.1.750834.3.579.2. 1259 1992 Unknown [id number] 2.16.840.1.806564.3.579.2. 1259 1992 Unknown [id number] 2.16.840.1.584453.3.579.2. 9 1992 Unknown [id number] 2.16.840.1.091717.3.579.2. 9 1992 Unknown [id number] 2.16.840.1.186130.3.579.2. 9 1992 Unknown [id number] 2.16.840.1.537589.3.579.2. 1258 1992 Unknown [id number] 2.16.840.1.039404.3.579.2. 9 1992 Unknown [id number] 2.16.840.1.963027.3.579.2. 9 1992 Unknown [id number] 2.16.840.1.911980.3.579.2. 1259 1959 Self-pay [id number] 1957 Unknown [id number] Social History Date Type Detail Facility Tobacco smoking stat [facility] Tobacco smoking consumption unknown [facility] [...] meal for a total of 4times daily. [id number] Start: 10-01-2024 End: 11-13-2024 1 each by In Vit ro route Daily Use to check FSBS four times daily [id number] Start: 10-01-2024 End: 11-13-2024 Clinical Notes 06-07-2024 [...] to check FSBS. Blood Glucose Monitoring Suppl (Kerecis-Home[employer]ars Glucometer) w/Device kit 1 kit, Does not [...] of: MARLEN Estrada documented in this encounter [facility] 10-30-2024 History of Presen t [...] nursing note reviewed. Exam conducted with a agency sales development associate present. Vitals: There is no height or [...] Sammie Higginbotham DO documented in this encounter [facility] 10-01-2024 History of Presen t [...] nursing note reviewed. Exam conducted with a agency sales development associate present. Vitals: There is no height or [...] Lin Sellers NP documented in this encounter [facility] 09-02-2024 History of Presen t [...] nursing note reviewed. Exam conducted with a agency sales development associate present. Vitals: There is no height or [...] Sammie Higginbotham DO documented in this encounter [facility] 08-05-2024 History of Presen t [...] nursing note reviewed. Exam conducted with a agency sales development associate present. Vitals: There is no height or [...] of: MARLEN Estrada documented in this encounter [facility] 07-08-2024 History of Presen t [...] Sammie Higginbotham DO documented in this encounter [facility] 06-07-2024 History of Presen t [...] or undercooked meat, and stay away from [facility]. Patient has also been advised to [...] Isabel Keating MA documented in this encounter [facility] Evaluation note Diagnosis Missed menses 9 [...] pital DATE CREATED AUTHOR AUTHOR'S ORGANIZ ATION 11/15/2024 [facility] Care Teams (unrecognized sec tion and content) Entrepreneurship Program Director Relationship Specialty Start Date End Date Emmy Higginbothamy, DO [address] [place] [address] PCP [facility] 09/04/23 Entrepreneurship Program Director Relationship Specialty Start Date End Date Emmy Higginbothamy, DO [address] [place] [address] [facility] 09/04/23 Entrepreneurship Program Director Relationship Specialty Start Date End Date Emmy Higginbothamy, DO [address] [place] [address] [facility] 09/04/23 Entrepreneurship Program Director Relationship Specialty Start Date End Date Emmy Higginbothamy, DO [address] [place] [address] PCP [facility] 09/04/23 Entrepreneurship Program Director Relationship Specialty Start Date End Date Emmy Higginbothamy, DO [address] [place] [address] [facility] 09/04/23 Entrepreneurship Program Director Relationship Specialty Start Date End Date Emmy Higginbothamy, DO [address] [place] [address] [facility] 09/04/23 Entrepreneurship Program Director Relationship Specialty Start Date End Date Sammie Higginbotham, DO [address] [place] [address] [facility] 09/04/23 Entrepreneurship Program Director Relationship Specialty Start Date End Date Sammie Higginbotham, DO [address] [place] [address] [facility] 09/04/23 Entrepreneurship Program Director Relationship Specialty Start Date End Date Sammie Higginbotham, DO [address] [place] [address] [facility] 09/04/23 Entrepreneurship Program Director Relationship Specialty Start Date End Date Sammie Higginbotham, DO [address] [place] [address] [facility] 09/04/23 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 [employer] [facility]. provides no warranty or guarantee of the accuracy or completeness of information in this document.
[2024-11-21 08:17] VITALS: TEMP 36.3
[2024-11-21 08:18] VITALS: BP 137/82; PULSE 107
== END 2024-11-21 08:59 | disposition home or self-care (01) ==
LOC: FBCO 07:47 → FBC 08:13
PROVIDERS: Visit Provider Obstetrics & Gynecology
DX: O24.419 Gestational diabetes mellitus in pregnancy, unspecified control (principal)
CPT/HCPCS: 59025

== ENCOUNTER 2024-11-25 09:57 | Outpatient (OUT) | payer OTHER, SELFPAY ==
--- NOTE | 2024-11-25 10:00 | US_ITS ---
The [address] [address] Patient Name: JANINA HUMMEL MRN: [id number] date: 1990 Sex: F Assigned Patient Location: Current Patient Location: US Accession/Order Number: [id number] Exam Date: 11/25/2024 10:35 Report Date: 11/25/2024 10:37 At the request of: SAMMIE AHUMADA DO Procedure: US OB BPP w non-stress BIOPHYSICAL PROFILE: CLINICAL INFORMATION: History of pre-eclampsia, gestational diabetes mellitus COMPARISON: 11/18/2024 There is a single live intrauterine gestation in cephalic presentation. The reported gestational age is 34 weeks 0 days. The heart rate measures 142 beats per minute. FINDINGS: TONE: 1 or more episodes of activity extension and flexion of extremity or opening and closing of the hand [Y] 2/2 GROSS BODY MOVEMENTS: 3 or more discrete body or limb movements [Y] 2/2 BREATHING MOVEMENTS: 1 or more episodes of breathing lasting at least 30 seconds [Y] 2/2 JUSTA: A single deepest vertical pocket of amniotic fluid greater than 2 cm [Y] 2/2 JUSTA: 15.3 cm. This is in normal range. Total score: 8/8 US/ OB BPP w non-stress IMPRESSION: NORMAL BIOPHYSICAL PROFILE Impression dictated by: Madie Long M.D. 11/25/2024 10:37 AM Dictation Location: [place] [address] Electronically authenticated by: [id number] Date: 11/25/2024 10:37
--- OUTSIDE RECORDS SUMMARY | 2024-11-25 10:06 | XMS_ITS | CCD ---
Author Organization [facility] CliniSynv Care Team Providers Care Litigation Coordinator Name Role Phone NEFTALY, DR COCHRAN Attending [...] Unavaila ble KARASIPavan, DR LOTT Consulting Unavailable SIDON, DR POLLO Gonzalez Consulting Unavailable NEFTALY, DR [...] US OB BPP W NON-STRESS on 11-18-2024 [place] [address] Ultrasound Report Signed Patient: JANINA MARTEL MR#: [id number] : 1990 Acct:[id number] Age/Sex: 34 / F ADM Date: 11/18/24 Loc: [facility] 250-[address]: Sammie Higginbotham D.O. Ordering Physician: Sammie Higginbotham D.O. Date of Service: 11/18/24 Procedure(s): OB BPP w non-stress Accession Number(s): [id number] cc: Sammie Higginbotham D.O.; Physician,Non-Staff [place] [id number] Patient Name: JANINA MARTEL MRN: [id number] date: 1990 Sex: F Assigned Patient Location: [facility] Current Patient Location: [facility] Accession/Order Number: [id number] Exam Date: 11/18/2024 09:24 Report Date: 11/18/2024 [...] Long M.D. 11/18/2024 9:26 AM Dictation Location: [place] [address] Electronically authenticated by: [id number] Y Date: 11/18/2024 09:26 Dictated By: Madie Long M.D. Signed By: 11/18/24927 DD/ 5 TD/TT: Corporate Development Intern: [facility] Radiology, Radiologist, MD - 11/18/2024 [place] [address] Ultrasound Report Signed Patient: JANINA MARTEL MR#: [id number] : 1990 Acct:[id number] Age/Sex: 34 / F ADM Date: 11/18/24 Loc: [place] [address]: Sammie Higginbotham D.O. Ordering Physician: Sammie Higginbotham D.O. Date of Service: 11/18/24 Procedure(s): US OB BPP w non-stress Accession Number(s): [id number] cc: Sammie Higginbotham D.O.; Physician,Non-Staff Mylene The [place] [id number] Patient Name: JANINA MARTEL MRN: [facility]:[id number] date: 1990 Sex: F Assigned Patient Location: [facility] Current Patient Location: [facility] Accession/Order Number: [id number] Exam Date: 11/18/2024 09:24 Report Date: 11/18/2024 [...] Long M.D. 11/18/2024 9:26 AM Dictation Location: [place] [address] Electronically authenticated by: [id number] Y Date: 11/18/2024 09:26 Dictated By: Madie Long M.D. Signed By: 11/18/2428 DD/ 5 TD/TT: Corporate Development Intern: [facility] Radiology Study observation (narrative) [facility] [employer] OB BPP W NON-STRESS Ordered By: Radiologist Radiology on 11-18-2024 [facility] Work Phone: TB TOTAL PROTEIN 24 HOUR UR INEon 11-13-2024 Interpretation and review of laboratory results Abnormal [facility] Zentricfl re Protein (U) [Mass/Vol] 10.8 mg/dL [facility] - 11.9 mg/dL [facility] [employer] TBH TOTAL PROTEIN 24 HOUR URINE 302.4 High [facility] FoxyTasks TOTAL VOLUME 24 HOUR URINE 2800 mL/24hr [facility] [employer] [facility] Urinalysis macro (dipstick) panel (U)on 11-13-2024 Bilirubin, UA Negative Negative - 4(70) +++ mg/dL [facility] Blood, UA Negative Negative - 50 Dario/mcL [facility] [employer] Clarity, UA Clear [facility] Nubee re Color, UA Yellow [facility] SensorTr[employer] e Glucose, UA Negative Negative - 2000(110) ++++ mg/dL [facility] Interpretation and review of laboratory results Abnormal [facility] Ketones, UA Positive Negative - 160(16) ++++ mg/dL [facility] Comment on above: 40 Leukocytes, UA Trace Negative - 500+++ Oksana/mcL [facility] Nitrite, UA Negative Negative - Positive [facility] pH, UA 6.5 5 - 9 [facility] Protein, UA Negative Negative - 1999(20) ++++ mg/dL [facility] Spec Grav, UA 1.005 1 - 1.03 [facility] Urobilinogen, UA 0.2 0.2 - 12 mg/dL [facility] Healthcar e US OB BPP W NON-STRESS on 11-12-2024 [place] [address] Ultrasound Report Signed Patient: JANINA MARTEL MR#: [id number] : 1990 Acct:[id number] Age/Sex: 34 / F ADM Date: 11/12/24 Loc: [facility] 254-[address]: Sammie Higginbotham D.O. Ordering Physician: Sammie Higignbotham D.O. Date of Service: 11/12/24 Procedure(s): US OB BPP w non-stress Accession Number(s): [id number] cc: Sammie Higginbotham D.O.; Physician,Non-Staff M.Kaylee The [address] [address] Patient Name: JANINA MARTEL MRN: [facility]:[id number] date: 1990 Sex: F Assigned Patient Location: [facility] Current Patient Location: [facility] Accession/Order Number: [id number] Exam Date: 11/12/2024 12:13 Report Date: 11/12/2024 [...] Long M.D. 11/12/2024 12:14 PM Dictation Location: [place] [address] Electronically authenticated by: [id number] Y Date: 11/12/2024 12:14 Dictated By: Madie Long M.D. Signed By: 11/12/24 1217 DD/ TD/TT: Corporate Development Intern: [facility] Radiology, Radiologist, MD - 11/12/2024 [place] [address] Ultrasound Report Signed Patient: JANINA MARTEL MR#: [id number] : 1990 Acct:[id number] Age/Sex: 34 / F ADM Date: 11/12/24 Loc: [facility] 254-[address]: Sammie Higginbotham D.O. Ordering Physician: Sammie Higginbotham D.O. Date of Service: 11/12/24 Procedure(s): US OB BPP w non-stress Accession Number(s): [id number] cc: Sammie Higginbotham D.O.; Physician,Non-Staff Mylene The [address] [address] Patient Name: JANINA MARTEL MRN: [facility]:[id number] date: 1990 Sex: F Assigned Patient Location: [facility] Current Patient Location: [facility] Accession/Order Number: [id number] Exam Date: 11/12/2024 12:13 Report Date: 11/12/2024 [...] Long M.D. 11/12/2024 12:14 PM Dictation Location: [place] [address] Electronically authenticated by: [id number] Y Date: 11/12/2024 12:14 Dictated By: Madie Long M.D. Signed By: 11/12/24 1217 DD/ 1214 TD/TT: Corporate Development Intern: [facility] Radiology Study observation (narrative) [facility] OB BPP W NON-STRESS Ordered By: Radiologist Radiology on 11-12-2024 [facility] [employer] Work Phone: US OB FOLLOW UP [...] II, MD, PHD at 30-Oct-2024 11:19:03 PM [facility] Normal Not Available Comment on above: Order Comment: US OB SCAN FOR GROWTH Estimated Date of Delivery: 01/06/25 Gestational Age as of 10/01/2024: 26w1d Urinalysis macro (dipstick) panel (U)on 10-30-2024 Bilirubin, UA Negative Negative - 4(70) +++ mg/dL [facility] Blood, UA Negative Negative - 50 Dario/mcL [facility] Clarity, UA Clear [facility] Healthfl re Color, UA Yellow [facility] Glucose, UA Negative Negative - 1999(110) ++++ mg/dL [facility] Interpretation and review of laboratory results Abnormal [facility] Ketones, UA Negative Negative - 160(16) ++++ mg/dL [facility] Leukocytes, UA Positive Negative - 500+++ Oksana/mcL [facility] Comment on above: small Nitrite, UA Negative Negative - Positive [facility] pH, UA 7 5 - 9 [facility] Healthcar e Protein, UA Negative Negative - 1999(20) ++++ mg/dL [facility] Spec Grav, UA 1.01 1 - 1.03 [facility] Urobilinogen, UA 0.2 0.2 - 12 mg/dL [facility] Urinalysis macro (dipstick) panel (U)on 09-02-2024 Bilirubin, UA Negative Negative - 4(70) +++ mg/dL [facility] Blood, UA Negative Negative - 50 Dario/mcL [facility] Clarity, UA Clear [facility] Nubee re Color, UA Yellow [facility] Zentriccar e Glucose, UA Negative Negative - 1999(110) ++++ mg/dL [facility] Interpretation and review of laboratory results Abnormal [facility] Zentricca re Ketones, UA Negative Negative - 160(16) ++++ mg/dL [facility] Leukocytes, UA Positive Negative - 500+++ Oksana/mcL [facility] Comment on above: Large Nitrite, UA Negative Negative - Positive [facility] pH, UA 7 5 - 9 [facility] [employer]ensorTr[employer] Protein, UA Negative Negative - 1999(20) ++++ mg/dL [facility] Spec Grav, UA 1.01 1 - 1.03 [facility] Urobilinogen, UA 0.2 0.2 - 12 mg/dL [facility] SensorTran e US OB 14+ WEEKS ANATOMY SCAN [...] II, MD, PHD at 22-Aug-2024 08:46:17 AM [facility] Normal Not Available Comment on above: Order Comment: US OB ANATOMY SINGLE W US OB CERVICAL LENGTH Estimated Date of Delivery: 01/06/25 Gestational Age as of 08/05/2024: 18w0d IGP,APTIMA HPV,AGE GDLNon AGE GDLN ACOG TESTING Note . [facility] Comment on above: TESTS RESULT FLAG U NITS REF RANGE LAB Clinician Provided Cytology Information Source.............Cervix Other.............. No. of containers..01 ThinPrep Vial Age Algo ACOG Maria Antonia... 30-65 01 FLAG LEGEND: L-Low Normal,H-High Normal,LL-Alert Low,HH-Alert High <-Panic Low,>-Panic High,A-Abnormal,AA-Critical Abnormal Performed at: 01 =G [facility] [place] [address] Asha Garza MD, HPV APTIMA Negative Negative [facility] Comment on above: This nucleic acid am plification test detects fourteen high- risk HPV types (16,18,31,33,35,39,45,51,52,56,58,59,66,68) without differentiation. Performed at: =G - [facility], [place] [id number] Business Services Vice President: Asha Garza MD, Phone: [phone] Performed at: - [facility], [place] [id number] Business Services Vice President: Asha Garza MD, Phone: [phone] IGP, APTIMA HPV, RFX 16/18,45 Note . [facility] Comment on above: TESTS RESULT FLAG UN ITS REF RANGE LAB DIAGNOSIS: 02 NEGATIVE FOR INTRAEPITHELIAL LESION OR MALIGNANCY. Specimen adequacy: 02 Satisfactory for evaluation. Endocervical and/or squamous metaplastic cells (endocervical component) are present. Performed by: Rajani Pablo, Color Blender (ASCP) . 02 Note: Note 02 The [...] Low,>-Panic High,A-Abnormal,AA-Critical Abnormal Performed at: [address] [address] Asha Garza MD, SPATULA-ALONE CERVIX [facility] Healthcar e RECURRENT VAGINITIS (HTRX)on 08-07-2024 ATOPOBIUM VAGINAE 0 [facility] ATOPOBIUM VAGINAE Not detected [facility] BVAB 2,3 (BACTERIAL VAGINOSIS ASSOCIATED BACTERIA 2, 3); MOBILUNCUS SPP 0 [facility] BVAB 2,3 (BACTERIAL VAGINOSIS ASSOCIATED BACTERIA 2, 3); MOBILUNCUS SPP Not detected [facility] ELODIA ALBICANS, PARAPSILOSIS, TROPICALIS 0 [facility] ELODIA ALBICANS, PARAPSILOSIS, TROPICALIS Not detected [facility] ELODIA GLABRATA 0 [facility] Hea lthcare ELODIA GLABRATA Not detected [facility]alth[facility] ELODIA KRUSEI 0 [facility] EL[facility]IA KRUSEI Not [facility] CHLAMYDIA TRACHOMATIS 0 [facility] CHLAMYDIA TRACHOMATIS Not detected [facility] GARDNERELLA VAGINALIS 0 [facility] GARDNERELLA VAGINALIS Not detected [facility] MEGASPHAERA (TYPES 1, 2) 0 [facility] MEGASPHAERA (TYPES 1, 2) Not detected [facility] MYCOPLASMA GENITALIUM 0 [facility] MYCOPLASMA GENITALIUM Not detected [facility] NEISSERIA GONORRHOEAE 0 [facility] NEISSERIA GONORRHOEAE Not detected [facility] TRICHOMONAS VAGINALIS 0 [facility] TRICHOMONAS VAGINALIS Not detected [facility] GLUCOSE TOLERANCE 3 HOURon 0 08-03-2024 GLUCOSE TOLERANCE 3 HOUR mg/dL [facility] Comment on above: GLU FAST 94 (<95) Co l: 08/03/24 0809 GLU 1HR 163 (<180) Col: 08/03/24 0912 GLU 2HR 114 (<155) Col: 08/03/24 1012 GLU 3HR 109 (<140) Col: 08/03/24 1112 [facility] Healthcar e GLUCOSE 1 HOURon 07-27-2024 Glucose [Mass/Vol] 151 mg/dL High NINF - 13 0 mg/dL [facility] Interpretation and review of laboratory results Abnormal [facility] Healthca re [facility] Healthcar e ALL CBC WITH AUTO DIFFon BASOPHILS ABSOLUTE [facility]O 0 [facility] Basophils/100 WBC (Bld) 0.3 % 0.2 - 2.0 % [facility] Eosinophils/100 WBC (Bld) 0.2 % Low 0.9 - 7.0 % [facility] Erythrocyte distribution width (RBC) [Ratio] 13.5 % 11.0 - 15.0 % [facility] Hematocrit (Bld) [Volume fraction] 36 % 36.0 - 48.0 % [facility] Healthcar e Hemoglobin (Bld) [Mass/Vol] 12.5 g/dL 12.0 - 16.0 g/dL [facility] IMMATURE GRANULOCYTES ABS AUTO 0.05 High [facility] Immature granulocytes/100 WBC (Bld) 0.4 % 0.0 - 0.5 % [facility] Interpretation and review of laboratory results Abnormal [facility] LYMPHOCYTES ABSOLUTE AUTO 2.1 [facility] Lymphocytes/100 WBC (Bld) 16 % Low 20.5 - 60.0 % [facility] MCH (RBC) [Entitic mass] 30.1 pg 26.7 - 34.0 pg [facility] MCHC (RBC) [Mass/Vol] 34.7 g/dL 29.9 - 35.2 g/dL [facility] MCV (RBC) [Entitic vol] 86.7 fL 81.0 - 99.0 fL [facility] MONOCYTES ABSOLUTE AUTO 0.9 High [facility] Monocytes/100 WBC (Bld) 6.6 % 1.7 - 12.0 % [facility] NEUTROPHILS ABSOLUTE AUTO 9.9 High [facility] Neutrophils/100 WBC (Bld) 76.5 % High 43.0 - 75.0 % [facility] Platelet mean volume (Bld) [Entitic vol] 10.7 fL 9.5 - 13.5 fL [facility] TBH EO # 0 [facility] PLT 276 NOM [facility] TB[facility] RBC 4.15 Low [facility] TB[facility] WBC 12.9 High [facility] HCG ( test) Ql (U)o n 06-07-2024 Interpretation and review of laboratory results Abnormal [facility] Preg Test, Ur Positive Negative [facility] US OB [...] x 4.7 cm (8 weeks, 3 days). [place] rump length is 2.5 cm (9 weeks, [...] UA Negative Negative - 4(70) +++ mg/dL [facility] Blood, UA Negative Negative - 50 Dario/mcL [facility] Clarity, UA Clear [facility] re Color, UA Yellow [facility] Glucose, UA Negative Negative - 1999(110) ++++ mg/dL [facility] Interpretation and review of laboratory results Normal [facility] re Ketones, UA Negative Negative - 160(16) ++++ mg/dL [facility] Leukocytes, UA Negative Negative - 500+++ Oksana/mcL [facility] Nitrite, UA Negative Negative - Positive [facility] pH, UA 5.5 5 - 9 [facility] Protein, UA Negative Negative - 1999(20) ++++ mg/dL [facility] Spec Grav, UA 1.015 1 - 1.03 [facility] Urobilinogen, UA 0.2 0.2 - 12 mg/dL [facility] TBH PREG QUANT HCGon 11-2 024 HCG QUANTITATIVE <1 mIU/mL [facility] Comment on above: 5-50 0.2-1 WEEK 50-500 1-2 WEEKS 100-5,000 2-3 WEEKS 500-10,000 3-4 WEEKS 1,000-50,000 4-5 WEEKS 10,000-100,000 5-6 WEEKS 15,000-200,000 6-8 WEEKS 10,000-100,000 2-3 MONTHS [facility] e TBH PREG QUANT HCGon 10-25-2 024 HCG QUANTITATIVE 15 mIU/mL [facility] ltare Comment on above: 5-50 0.2-1 WEEK 50-500 1-2 WEEKS 100-5,000 2-3 WEEKS 500-10,000 3-4 WEEKS 1,000-50,000 4-5 WEEKS 10,000-100,000 5-6 WEEKS 15,000-200,000 6-8 WEEKS 10,000-100,000 2-3 MONTHS [facility] Health[facility] TBH PREG QUANT HCGon 10-21-2 024 HCG QUANTITATIVE 22 mIU/mL [facility] ltare Comment on above: 5-50 0.2-1 WEEK [...] 21 to 29on 09-22-[address] [facility] Comment on above: Performed By: #### [id number] #### [facility] [address] [place] [address] Dr. Yariel Hunyh Age Gdln ACOG Testing - Normal [facility] Comment on above: Performed By: #### 4 [id number] #### [facility] [address] [place] [address] [address] Yariel Huynh DIAGNOSIS: Comment [facility] Comment on above: Result Comment: NEGA TIVE FOR INTRAEPITHELIAL LESION OR MALIGNANCY. Performed By: #### 4 [id number] #### [facility] [address] [place] [address] Dr. Yariel Huynh Methodology: Comment [facility] Comment on above: Result Comment: This liquid based ThinPrep(R) pap test was screened with the use of an image guided system. Performed By: #### 4 [id number] #### [facility] [address] [place] [address] [address] Yariel Huynh Note: Comment [facility] Comment on above: Result Comment: The Pap smear is a screening test designed to aid in the detection of premalignant and malignant conditions of the uterine cervix. It is not a diagnostic procedure and should not be used as the sole means of detecting cervical cancer. Both false-positive and false-negative reports do occur. . Performed By: #### [id number] #### [facility] [address] [place] [address] Dr. Yariel Huynh Performed by: Comment Normal [facility] Comment on above: Result Comment: Carole Lee, Color Blender (ASCP) Performed By: #### [id number] #### [facility] [address] [place] [address] Dr. Yariel Huynh Reflex Criteria: Comment Normal [facility] Comment on above: Result Comment: The HPV DNA reflex criteria were not met with this specimen result therefore, no HPV testing was performed. . Performed By: #### 4 [id number] #### [facility] [address] [place] [address] Dr. Yariel Huynh Specimen adequacy: Comment Normal [facility] Comment on above: Result Comment: Sati sfactory for evaluation. Endocervical and/or squamous metaplastic cells (endocervical component) are present. Performed By: #### 4 [id number] #### [facility] [address] [place] [address] Dr. Yariel Huynh RUBELLA AB IGGon 12-10-2020 Rubella Antibodies, IgG 1.46 index Normal Immune >0.99 [facility] Comment on above: Result Comment: Non- immune <0.90 Equivocal 0.90 - 0.99 Immune >0.99 Performed By: #### R [id number] #### [facility] [address] [place] [address] Clyde Ramachandran CBC AUTO DIFFon 12-09-2020 BASO # 0.1 103/ul Normal 0.0-0.1 [facility] Comment on above: Performed By: #### 4 [id number] #### [facility] [address] [place] [address] Dr. Yariel Huynh Basophils/100 WBC (Bld) 0.3 % Normal 0.2-2.0 [facility] Comment on above: Performed By: #### 4 [id number] #### [facility] [address] [place] [address] Dr. Yariel Huynh EO # 0.0 103/ul Normal 0.0-0.7 [facility] Comment on above: Performed By: #### 4 [id number] #### [facility] [address] [place] [address] Dr. Yariel Huynh Eosinophils/100 WBC (Bld) 0.1 % Critically low 0.9-7.0 [facility] Comment on above: Performed By: #### 4 [id number] #### [facility] [address] [place] [address] Dr. Yariel Huynh Erythrocyte distribution width (RBC) [Ratio] 13.9 % Normal 11.0-15.0 [facility] Comment on above: Performed By: #### 4 [id number] #### [facility] [address] [place] [address] Dr. Yariel Huynh Hematocrit (Bld) [Volume fraction] 29.5 % Critically low 36.0-48.0 [facility] Comment on above: Performed By: #### 4 [id number] #### [facility] [address] [place] [address] Dr. Yariel Huynh Hemoglobin (Bld) [Mass/Vol] 9.3 g/dL Critically low 12.0-16.0 [facility] Comment on above: Performed By: #### 4 [id number] #### [facility] [address] [place] [address] Dr. Yariel Huynh IG # 0.08 10e3/ul Critically high 0.00-0.03 [facility] Comment on above: Performed By: #### 4 [id number] #### [facility] [address] [place] [address] Dr. Yariel Huynh IG % 0.5 % Normal 0.0-0.5 [facility] Comment on above: Performed By: #### 4 [id number] #### [facility] [address] [place] [address] Dr. Yariel Huynh LYMPH # 1.7 103/ul Normal 1.2-3.8 [facility] Comment on above: Performed By: #### 4 [id number] #### [facility] [address] [place] [address] Dr. Yariel Huynh Lymphocytes/100 WBC (Bld) 10.8 % Critically low 20.5-60.0 [facility] Comment on above: Performed By: #### 4 [id number] #### [facility] [address] [place] [address] Dr. Yariel Huynh MANUAL DIFF REQ NO Normal [facility] Comment on above: Performed By: #### 4 [id number] #### [facility] [address] [place] [address] Dr. Yariel Huynh MCH (RBC) [Entitic mass] 26.2 pg Critically low 26.7-34.0 [facility] Comment on above: Performed By: #### 4 [id number] #### [facility] [address] [place] [address] Dr. Yariel Huynh MCHC (RBC) [Mass/Vol] 31.5 g/dL Normal 29.9-35.2 [facility] Comment on above: Performed By: #### 4 [id number] #### [facility] [address] [place] [address] Dr. Yariel Huynh MCV (RBC) [Entitic vol] 83.1 fL Normal 81.0-99.0 [facility] Comment on above: Performed By: #### 4 [id number] #### [facility] [address] [place] [address] Dr. Yariel Huynh MONO # 0.8 103/ul Normal 0.3-0.8 [facility] Comment on above: Performed By: #### 4 [id number] #### [facility] [address] [place] [address] Dr. Yariel Huynh Monocytes/100 WBC (Bld) 5.2 % Normal 1.7-12.0 [facility] Comment on above: Performed By: #### 4 [id number] #### [facility] [address] [place] [address] Dr. Yariel Huynh NEUT # 12.8 103/ul Critically high 1.4-6.5 [facility] Comment on above: Performed By: #### 4 [id number] #### [facility] [address] [place] [address] Dr. Yariel Huynh Neutrophils/100 WBC (Bld) 83.1 % Critically high 43.0-75.0 [facility] Comment on above: Performed By: #### 4 [id number] #### [facility] [address] [address] [address] Yariel Huynh Platelet mean volume (Bld) [Entitic vol] 12.6 fL Normal 9.5-13.5 [facility] Comment on above: Performed By: #### 4 [id number] #### [facility] [address] [address] [address] Yariel Huynh PLT 203 103/ul Normal 150-450 [facility] Comment on above: Performed By: #### 4 [id number] #### [facility] [address] [place] [address] Dr. Yariel Huynh RBC 3.55 106/ul Critically low 4.20-5.40 [facility] Comment on above: Performed By: #### 4 [id number] #### [facility] [address] [place] [address] Dr. Yariel Huynh WBC 15.4 103/ul Critically high 4.0-11.0 [facility] Comment on above: Performed By: #### 4 [id number] #### [facility] [address] [place] [address] Dr. Yariel Huynh ASYMPTOMATIC COVID-19 ANTIGE Non 12-08-2020 EUA Statement SEE BELOW Normal [facility] Comment on above: Result Comment: This [...] is revoked sooner. Performed By: #### 4 [id number] #### [facility] [address] [place] [address] Dr. Yariel Huynh SARS-CoV-2 (COVID-19) RNA ESTEBAN+probe Ql (Unsp spec) Negative Normal NEGATIVE [facility] Comment on above: Result Comment: Nega tive results are presumptive. They do not preclude infection and should not be used as the sole basis for treatment decisions. Additional confirmatory testing by a molecular method should be considered. Performed By: #### [id number] #### [facility] [address] [place] [address] Dr. Yariel Huynh BUNon 12-08-2020 Urea nitrogen [Mass/Vol] 15.0 mg/dL Normal 7.0-17.0 [facility] Comment on above: Performed By: #### 4 [id number] #### [facility] [address] [place] [address] Dr. Yariel Huynh CBC AUTO DIFFon 12-08-2020 BASO # 0.0 103/ul Normal 0.0-0.1 [facility] Comment on above: Performed By: #### 4 [id number] #### [facility] [address] [place] [address] Dr. Yariel Huynh Basophils/100 WBC (Bld) 0.3 % Normal 0.2-2.0 [facility] Comment on above: Performed By: #### 4 [id number] #### [facility] [address] [place] [address] Dr. Yariel Huynh EO # 0.0 103/ul Normal 0.0-0.7 [facility] Comment on above: Performed By: #### 4 [id number] #### [facility] [address] [place] [address] Dr. Yariel Huynh Eosinophils/100 WBC (Bld) 0.4 % Critically low 0.9-7.0 [facility] Comment on above: Performed By: #### 4 [id number] #### [facility] [address] [place] [address] Dr. Yariel Huynh Erythrocyte distribution width (RBC) [Ratio] 13.8 % Normal 11.0-15.0 [facility] Comment on above: Performed By: #### 4 [id number] #### [facility] [address] [place] [address] Dr. Yariel Huynh Hematocrit (Bld) [Volume fraction] 31.8 % Critically low 36.0-48.0 [facility] Comment on above: Performed By: #### 4 [id number] #### [facility] [address] [place] [address] Dr. Yariel Huynh Hemoglobin (Bld) [Mass/Vol] 10.1 g/dL Critically low 12.0-16.0 [facility] Comment on above: Performed By: #### 4 [id number] #### [facility] [address] [place] [address] Dr. Yariel Huynh IG # 0.07 10e3/ul Critically high 0.00-0.03 [facility] Comment on above: Performed By: #### 4 [id number] #### [facility] [address] [place] [address] Dr. Yariel Huynh IG % 0.7 % Critically high 0.0-0.5 [facility] Comment on above: Performed By: #### 4 [id number] #### [facility] [address] [place] [address] Dr. Yariel Huynh LYMPH # 2.3 103/ul Normal 1.2-3.8 [facility] Comment on above: Performed By: #### 4 [id number] #### [facility] [address] [place] [address] Dr. Yariel Huynh Lymphocytes/100 WBC (Bld) 22.7 % Normal 20.5-60.0 [facility] Comment on above: Performed By: #### 4 [id number] #### [facility] [address] [place] [address] Dr. Yariel Huynh MANUAL DIFF REQ NO Normal [facility] Comment on above: Performed By: #### 4 [id number] #### [facility] [address] [place] [address] Dr. Yariel Huynh MCH (RBC) [Entitic mass] 26.7 pg Normal 26.7-34.0 [facility] Comment on above: Performed By: #### 4 [id number] #### [facility] [address] [place] [address] Dr. Yariel Huynh MCHC (RBC) [Mass/Vol] 31.8 g/dL Normal 29.9-35.2 [facility] Comment on above: Performed By: #### 4 [id number] #### [facility] [address] [place] [address] Dr. Yariel Huynh MCV (RBC) [Entitic vol] 84.1 fL Normal 81.0-99.0 [facility] Comment on above: Performed By: #### 4 [id number] #### [facility] [address] [place] [address] Dr. Yariel Huynh MONO # 0.6 103/ul Normal 0.3-0.8 [facility] Comment on above: Performed By: #### 4 [id number] #### [facility] [address] [place] [address] Dr. Yariel Huynh Monocytes/100 WBC (Bld) 6.3 % Normal 1.7-12.0 [facility] Comment on above: Performed By: #### 4 [id number] #### [facility] [address] [place] [address] Dr. Yariel Huynh NEUT # 7.0 103/ul Critically high 1.4-6.5 [facility] Comment on above: Performed By: #### 4 [id number] #### [facility] [address] [place] [address] Dr. Yariel Huynh Neutrophils/100 WBC (Bld) 69.6 % Normal 43.0-75.0 [facility] Comment on above: Performed By: #### 4 [id number] #### [facility] [address] [place] [address] Dr. Yariel Huynh Platelet mean volume (Bld) [Entitic vol] 12.9 fL Normal 9.5-13.5 [facility] Comment on above: Performed By: #### 4 [id number] #### [facility] [address] [place] [address] Dr. Yariel Huynh PLT 193 103/ul Normal 150-450 [facility] Comment on above: Performed By: #### 4 [id number] #### [facility] [address] [place] [address] Dr. Yariel Huynh RBC 3.78 106/ul Critically low 4.20-5.40 [facility] Comment on above: Performed By: #### 4 [id number] #### [facility] [address] [place] [address] Dr. Yariel Huynh WBC 10.1 103/ul Normal 4.0-11.0 [facility] Comment on above: Performed By: #### 4 [id number] #### [facility] [address] [place] [address] Dr. Yariel Huynh CREATININEon 12-08-2020 Creatinine [Mass/Vol] 0.80 mg/dL Normal 0.52-1.04 [facility] Comment on above: Performed By: #### L DH, URIC, AST, ALT, BUN, CREA #### [facility] [address] [place] [address] Clyde Madie EGFR-AF BAHRAINI >60 Normal >=60 [facility] Comment on above: Performed By: #### L DH, URIC, AST, ALT, BUN, CREA #### [facility] [address] [place] [address] Clyde Madie EGFR-NON AF BAHRAINI >60 Normal >=60 [facility] Comment on above: Performed By: #### L DH, URIC, AST, ALT, BUN, CREA #### [facility] [address] [place] [address] Clyde Delgadilloen DRUG SCREEN RAPID (URINE)on 12-08-2020 AMP Negative Normal NEGATIVE [facility] Comment on above: Performed By: #### 4 [id number] #### [facility] [address] [place] [address] Dr. Yariel Huynh BAR Negative Normal NEGATIVE [facility] Comment on above: Performed By: #### 4 [id number] #### [facility] [address] [place] [address] Dr. Yariel Huynh BUP Negative Normal NEGATIVE [facility] Comment on above: Performed By: #### 4 [id number] #### [facility] [address] [place] [address] Dr. Yariel Huynh BZO Negative Normal NEGATIVE [facility] Comment on above: Performed By: #### 4 [id number] #### [facility] [address] [place] [address] Dr. Yariel Huynh ROSA Negative Normal NEGATIVE [facility] Comment on above: Performed By: #### 4 [id number] #### [facility] [address] [place] [address] Dr. Yariel Huynh CUT-OFFS SEE BELOW Normal [facility] Comment on above: Result Comment: AMP (Amphetamine): 500ng/mL, BAR (Barbituates): 200 ng/mL, BZO (Benzodiazepines): 150 ng/mL, BUP (Buprenorphine): 10 ng/mL, ROSA (Cocaine): 150 ng/mL, mAMP (Methamphetamine): 500 ng/mL, MTD (Methadone): 200 ng/mL, OPI (Opiates): 100 ng/mL, OXY (Oxycodone): 100 ng/mL, PCP (Phencyclidine): 25 ng/mL, PPX (Propoxyphene): 300 ng/mL, THC (Cannabinoids): 50 ng/mL, TCA (Trycyclic Antidepressants): 300 ng/mL Performed By: #### 4 [id number] #### [facility] [address] [place] [address] Dr. Yariel Huynh DRUG CUT HEADER DRUG CLASS TEST SYSTEM CUT-OFF CONCENTRATIONS ARE FOLLOWS: Normal [facility] Comment on above: Performed By: #### 4 [id number] #### [facility] [address] [place] [address] Dr. Yariel Huynh mAMP Negative Normal NEGATIVE [facility] Comment on above: Performed By: #### 4 [id number] #### [facility] [address] [place] [address] Dr. Yariel Huynh MTD Negative Normal NEGATIVE [facility] Comment on above: Performed By: #### 4 [id number] #### [facility] [address] [place] [address] Dr. Yariel Huynh OPI Negative Normal NEGATIVE [facility] Comment on above: Performed By: #### 4 [id number] #### [facility] [address] [place] [address] Dr. Yariel Huynh OXY Negative Normal NEGATIVE [facility] Comment on above: Performed By: #### 4 [id number] #### [facility] [address] [place] [address] Dr. Yariel Huynh PCP Negative Normal NEGATIVE [facility] Comment on above: Performed By: #### 4 [id number] #### [facility] [address] [place] [address] Dr. Yariel Huynh PPX Negative Normal NEGATIVE [facility] Comment on above: Performed By: #### 4 [id number] #### [facility] [address] [place] [address] Dr. Yariel Huynh TCA Negative Normal NEGATIVE [facility] Comment on above: Performed By: #### 4 [id number] #### [facility] [address] [place] [address] Dr. Yariel Huynh THC Negative Normal NEGATIVE [facility] Comment on above: Performed By: #### 4 [id number] #### [facility] [address] [place] [address] Dr. Yariel Huynh LDHon 12-08-2020 LDH 163 U/L Normal 122-222 [facility] Comment on above: Performed By: #### L DH, URIC, AST, ALT, BUN, CREA #### [facility] [address] [place] [address] Clyde Delgadilloen SGOTon 12-08-2020 AST [Catalytic activity/Vol] 15 U/L Normal 14-36 [facility] Comment on above: Performed By: #### L DH, URIC, AST, ALT, BUN, CREA #### [facility] [address] [place] [address] Clyde Delgadilloen SGPTon 12-08-2020 ALT [Catalytic activity/Vol] 12 U/L Normal 9-52 [facility] Comment on above: Performed By: #### L DH, URIC, AST, ALT, BUN, CREA #### [facility] [address] [place], [place] [address] Clyde Ramachandran TYPE AND SCREENon 12-08-2020 TYPE AND SCREEN Negative Normal [facility] Comment on above: Performed By: #### T NS #### [facility] [address] [place], [place] [address] Clyde Ramachandran URIC ACID SERUMon 12-08-2020 Urate [Mass/Vol] 5.0 mg/dL Normal 2.5-6.2 [facility] Comment on above: Performed By: #### L DH, URIC, AST, ALT, BUN, CREA #### [facility] [address] [place], [place] [address] Clyde Ramachandran US PREG BIOPHY W NON [...] POLLO PABLO Date: 2020-12-08 08:45 Normal [facility] US PREG BIOPHY W NON STRESSo [...] authenticated by: SCOTT Pina: 2020-12-01 10:[address] [facility] Vital Signs Date Time Vital Sign Value Performing Clinician Roxann torres 11-13-2024 10:28-0400 Body weight 78.65 kg Diya GEE Work Phone: [facility] 11-13-2024 10:28-0400 Diastolic blood pressure 78 mm[Hg] Diya GEE Work Phone: [facility] 11-13-2024 10:28-0400 Systolic blood pressure 130 mm[Hg] Diya GEE Work Phone: [facility] 10-30-2024 10:31-0400 Body weight 78.53 kg Sammie Neftaly DO Work Phone: [facility] 10-30-2024 10:31-0400 Diastolic blood pressure 78 mm[Hg] Sammie Neftaly DO Work Phone: [facility] 10-30-2024 10:31-0400 Systolic blood pressure 120 mm[Hg] Sammie Neftaly DO Work Phone: [facility] 10-01-2024 09:38-0400 Body weight 75.48 kg Lin Sellers [employer] Work Phone: [facility] 10-01-2024 09:38-0400 Diastolic blood pressure 76 mm[Hg] Lin Verito [employer] OPERATOR Work Phone: [facility] 10-01-2024 09:38-0400 Systolic blood pressure 120 mm[Hg] Lin Verito [employer] OPERATOR Work Phone: [facility] 09-02-2024 09:46-0400 Body weight 71.85 kg Sammie Neftaly DO Work Phone: [facility] 09-02-2024 09:46-0400 Diastolic blood pressure 82 mm[Hg] Sammie Neftaly DO Work Phone: [facility] 09-02-2024 09:46-0400 Systolic blood pressure 122 mm[Hg] Sammie Neftaly DO Work Phone: [facility] 08-05-2024 09:52-0500 Body weight 68.49 kg Diya GEE Work Phone: [facility] 08-05-2024 09:52-0500 Diastolic blood pressure 78 mm[Hg] Diya GEE Work Phone: [facility] 08-05-2024 09:52-0500 Systolic blood pressure 124 mm[Hg] Diya GEE Work Phone: [facility] 07-08-2024 09:52-0500 Body weight 67.31 kg Sammie Neftaly DO Work Phone: [facility] 07-08-2024 09:52-0500 Diastolic blood pressure 70 mm[Hg] Sammie Neftaly DO Work Phone: [facility] 07-08-2024 09:52-0500 Systolic blood pressure 118 mm[Hg] Sammie Neftaly DO Work Phone: [facility] 06-07-2024 09:47-0500 Body weight 66.22 kg Noms Nurse [facility] 06-07-2024 09:47-0500 Diastolic blood pressure 72 mm[Hg] [facility] Nurse [facility] 06-07-2024 09:47-0500 Systolic blood pressure 122 mm[Hg] [facility] Nurse [facility] Encounters Encounter Date Encounter Type Care Provider Facility Start: 11-18-2024 End: 11-18-2024 Clinisync Result Encounter Sammie Neftaly DO Work Phone: [facility] External [facility] Unsolicited Start: 11-18-2024 End: 11-18-2024 Clinisync Result Encounter Sammie Neftaly DO Work Phone: [facility] Unsolicited Start: 11-13-2024 End: 11-13-2024 Bamboo flowsheet Diya GEE Work Phone: [facility] Start: 11-13-2024 End: 11-13-2024 Bamboo flowsheet Diya GEE Work Phone: [facility] Start: 11-13-2024 End: 11-13-2024 Clinisync [...] unspecified Start: 10-30-2024 End: 10-30-2024 ambulatory SAMMIE ENFTALY Not Available Start: 10-01-2024 End: 10-01-2024 Bamboo flowsheet Lin Sellers [employer] Work Phone: [facility] Start: 10-01-2024 End: 10-01-2024 Bamboo flowsheet Lin Sellers [employer] OPERATOR Work Phone: [facility] Start: 10-01-2024 End: 10-01-2024 Office outpatient visit 15 minutes Lin Sellers [employer] Work Phone: [facility] Comment on above: Second trimester pre gnancy; size inconsistent with dates; H/O pre-eclampsia in prior , currently Start: 10-01-2024 End: 10-01-2024 ambulatory LIN VERITO Not Available Start: 09-02-2024 End: 09-02-2024 Bamboo flowsheet Sammie Neftaly DO Work Phone: [facility] Start: 09-02-2024 End: 09-02-2024 Bamboo flowsheet Sammie Neftaly DO Work Phone: [facility] Start: 09-02-2024 End: 09-02-2024 Office outpatient visit 15 minutes Sammie Neftaly DO Work Phone: [facility] Comment on above: Second trimester pre gnancy; 22 weeks gestation of ; Diabetes mellitus screening Start: 09-02-2024 End: 09-02-2024 ambulatory SAMMIE NEFTALY Not Available Start: 08-21-2024 End: 08-21-2024 ambulatory SAMMIE NEFTALY Not Available Start: 08-05-2024 End: 08-05-2024 Bamboo flowsheet Diya GEE Work Phone: [facility] Start: 08-05-2024 End: 08-08-2024 Bamboo flowsheet Diya GEE Work Phone: [facility] Start: 08-05-2024 End: 08-08-2024 Clinisync Result Encounter Diya GEE Work Phone: [facility] External Department Unsolicited Start: 08-05-2024 End: 08-07-2024 External Result Encounter Diya GEE Work Phone: [facility] External Department Unsolicited Start: 08-05-2024 End: 08-05-2024 Office outpatient visit 15 minutes Diya GEE Work Phone: [facility] Comment on above: Well woman exam with routine gynecological exam; Exposure to STD; Second trimester ; 18 weeks gestation of ; Need for maternal serum alpha-protein (MSAFP) screening; Screening, , for anatomic survey Start: 08-05-2024 End: 08-05-2024 Patient encounter procedure Diya GEE Work Phone: [facility] Start: 08-05-2024 End: 08-05-2024 ambulatory DIYA [...] Screening for malign ant neoplasm of cervix [facility] Start: 03-15-2028 Screening for malign ant neoplasm of cervix [facility] Start: 02-03-2025 Influenza vaccination Influenz a Vaccine (Season Ended) [facility] Start: 11-27-2024 End: 11-27-2024 Patient encounter procedure 11/27/2024 11:30 AM EDT Routine [facility] [address] [id number] Sammie Higginbotham, DO [address] [place] [address] [facility] Start: 11-13-2024 End: 11-13-2024 Patient encounter procedure [facility] Comment on above: Arrived [...] prior , currently Expected: 10/01/2024, Expires: 01/31/2025 [facility] Work Phone: Comment on above: Expected: 10/01/2024 , Expires: 01/31/2025 Start: 10-01-2024 End: 10-01-2024 Patient encounter procedure [facility] Comment on above: Arrived Start: 09-02-2024 End: 09-02-2025 CBC panel - Blood by Automated count CBC Lab Routine Diabetes mellitus screening Expected: 09/02/2024 (Approximate), Expires: 09/02/2025 [facility] Work Phone: Comment on above: Expected: [...] EDT Ancillary Procedure [facility] [address] [id number] [facility] Start: 08-05-2024 End: 09-05-2024 Alpha fetoprotein, maternal Alpha fetoprotein, maternal Lab Routine Need for maternal serum alpha-protein (MSAFP) screening Expected: 08/05/2024 (Approximate), Expires: 09/05/2024 [facility] Comment on above: Expected: 08/05/2024 (Approximate), Expires: 09/05/2024 Start: 08-05-2024 End: 08-05-2025 US for US OB 14+ weeks anatomy scan Imaging Routine Screening, , for anatomic survey Expected: 08/05/2024 (Approximate), Expires: 08/05/2025 [facility] Comment on above: Expected: 08/05/2024 (Approximate), Expires: 08/05/2025 Start: 08-05-2024 End: 08-05-2024 Patient encounter procedure [facility] Comment on above: Arrived Start: 07-08-2024 End: 07-08-2025 Measurement of glucose 1 hour after glucose challenge for glucose tolerance test Glucose tolerance, 1 hour Lab Routine Diabetes mellitus screening Expected: 07/08/2024 (Approximate), Expires: 07/08/2025 [facility] Work Phone: Comment on above: Expected: 07/08/2024 (Approximate), Expires: 07/08/2025 Start: 07-08-2024 End: 07-08-2024 Patient encounter procedure [facility] Comment on above: Arrived Start: 06-07-2024 End: 06-07-2025 ABO/Rh ABO/Rh Lab Routine Missed menses , unspecified gestational age Expected: 06/07/2024 (Approximate), Expires: 06/07/2025 [facility] Comment on above: Expected: 06/07/2024 (Approximate), Expires: 06/07/2025 Start: 06-07-2024 End: 06-07-2025 Blood type and Indirect antibody screen panel - Blood Type and screen Lab Routine Missed menses , unspecified gestational age Expected: 06/07/2024 (Approximate), Expires: 06/07/2025 [facility] Work Phone: Comment on above: Expected: 06/07/2024 (Approximate), Expires: 06/07/2025 Start: 06-07-2024 End: 06-07-2025 Drugs of abuse panel - Urine by Screen method Rapid drug screen, urine Lab Routine , unspecified gestational age Encounter for supervision of normal first in first trimester Expected: 06/07/2024 (Approximate), Expires: 06/07/2025 [facility] Comment on above: Expected: 06/07/2024 (Approximate), Expires: 06/07/2025 Start: 04-19-2024 End: 04-19-2024 ambulatory 04/19/2024 10:00 AM EST Initial [facility] [address] [place] [address] [place] [phone] [facility] Start: 04-19-2024 End: 04-19-2024 Professional / ancillary services management 04/19/2024 9:30 AM EST Ancillary Procedure [facility] [address] [place] [address] [place] [id number] [facility] Start: 02-04-2024 Influenza vaccination Influenza Vacc ine (#1) [facility] Start: 2013 Screening for malign ant neoplasm of cervix Pap Smear [facility] Bacteria identified in Urine by Culture Urine culture Microbiology Routine Missed menses Ordered: 06/07/2024 [facility] Comment on above: Ordered: 06/07/2024 CBC W Auto Different ial panel - Blood CBC and differential Lab Routine Missed menses , unspecified gestational age Ordered: 06/07/2024 [facility] Comment on above: Ordered: 06/07/2024 CHLAMYDIA TRACHOMATI S (GENITO/STI) CHLAMYDIA TRACHOMATIS (GENITO/STI) Lab Routine Exposure to STD Ordered: 08/05/2024 [facility] Comment on above: Ordered: 08/05/2024 Cytology Cervical or vaginal smear or scraping study Pap Smear Pathology and Cytology Routine Well woman exam with routine gynecological exam Ordered: 08/05/2024 [facility] Comment on above: Ordered: 08/05/2024 Hemoglobin A1c/Hemoglobin.total in Blood Hemoglobin A1c Lab Routine Missed menses , unspecified gestational age Ordered: 06/07/2024 [facility] Comment on above: Ordered: 06/07/2024 Hepatitis B virus surface Ag [Presence] in Serum or Plasma by Immunoassay Hepatitis B surface antigen Lab Routine Missed menses , unspecified gestational age Ordered: 06/07/2024 [facility] Comment on above: Ordered: 06/07/2024 Hepatitis C virus Ab [Presence] in Serum or Plasma by Immunoassay Hepatitis C antibody Lab Routine Missed menses , unspecified gestational age Ordered: 06/07/2024 [facility] Comment on above: Ordered: 06/07/2024 HIV-1/HIV-2 antigen/antibody combination immunoassay HIV-1 and HIV-2 antibodies Lab Routine Missed menses , unspecified gestational age Ordered: 06/07/2024 [facility] Comment on above: Ordered: 06/07/2024 Human papilloma viru s DNA [Presence] in Unspecified specimen by Probe with amplification HPV DNA probe, amplified Microbiology Routine Well woman exam with routine gynecological exam Ordered: 08/05/2024 [facility] Comment on above: Ordered: 08/05/2024 Neisseria gonorrhoea e DNA [Presence] in Unspecified specimen by ESTEBAN with probe detection Neisseria gonorrhea DNA probe, direct Lab Routine Exposure to STD Ordered: 08/05/2024 [facility] Comment on above: Ordered: 08/05/2024 Reagin Ab [Presence] in Serum by RPR RPR Lab Routine Missed menses , unspecified gestational age Ordered: 06/07/2024 [facility] Comment on above: Ordered: 06/07/2024 Rubella antibody, IgG Rubella an tibody, IgG Lab Routine Missed menses , unspecified gestational age Ordered: 06/07/2024 [facility] Comment on above: Ordered: 06/07/2024 SURESWAB(R) ADVANCED VAGINITIS PLUS, TMA SURESWAB(R) ADVANCED VAGINITIS PLUS, TMA Pathology and Cytology Routine Exposure to STD Ordered: 08/05/2024 [facility] Work Phone: Comment on above: Ordered: 08/05/2024 [facility] TOTAL PROTEIN 24 HOUR URINE [facility] TOTAL PROTEIN 24 HOUR URINE Lab Ordered: 11/13/2024 [facility] Comment on above: Ordered: 11/13/2024 Immunizations Immunization Date Immunization Notes Care Provider Khai lopez 05-09-2019 influenza virus vacc ine, unspecified formulation Sammie Higginbotham DO Work Phone: [facility] Payers Date Payer Category Payer Private Health Insurance [facility] [employer] [id number] 2017 Medicaid [id number] 1990 Unknown [id number] 1990 Unknown [id number] 2.16.840.1.613181.3.579.2. 593 1992 Unknown [id number] 2.16.840.1.816539.3.579.2. 593 1992 Unknown [id number] 2.16.840.1.538394.3.579.2. 593 1992 Unknown [id number] 2.16.840.1.762383.3.579.2. 593 1992 Unknown [id number] 2.16.840.1.827573.3.579.2. 593 1992 Unknown [id number] 2.16.840.1.021023.3.579.2. 593 1992 Unknown [id number] 2.16.840.1.416349.3.579.2. 593 1992 Unknown [id number] 2.16.840.1.607597.3.579.2. 593 1992 Unknown [id number] 2.16.840.1.035598.3.579.2. 1259 1992 Unknown [id number] 2.16.840.1.503545.3.579.2. 1259 1992 Unknown [id number] 2.16.840.1.645976.3.579.2. 1259 1992 Unknown [id number] 2.16.840.1.853312.3.579.2. 9 1992 Unknown [id number] 2.16.840.1.657246.3.579.2. 9 1992 Unknown [id number] 2.16.840.1.440379.3.579.2. 9 1992 Unknown [id number] 2.16.840.1.066158.3.579.2. 1258 1992 Unknown [id number] 2.16.840.1.958396.3.579.2. 9 1992 Unknown [id number] 2.16.840.1.213255.3.579.2. 9 1992 Unknown [id number] 2.16.840.1.220329.3.579.2. 1259 1959 Self-pay [id number] 1959 Unknown [id number] Social History Date Type Detail Facility Tobacco smoking stat [facility] Tobacco smoking consumption unknown [facility] [...] meal for a total of 4times daily. [id number] Start: 10-01-2024 End: 11-13-2024 1 each by In Vit ro route Daily Use to check FSBS four times daily [id number] Start: 10-01-2024 End: 11-13-2024 Clinical Notes 06-07-2024 [...] to check FSBS. Blood Glucose Monitoring Suppl (Kad[employer]-Kadient Glucometer) w/Device kit 1 kit, Does not [...] of: MARLEN Estrada documented in this encounter [facility] 10-30-2024 History of Presen t illness [...] nursing note reviewed. Exam conducted with a dynamiter present. Vitals: There is no height or [...] Sammie Higginbotham DO documented in this encounter [facility] 10-01-2024 History of Presen t illness [...] nursing note reviewed. Exam conducted with a dynamiter present. Vitals: There is no height or [...] Lin Sellers NP documented in this encounter [facility] 09-02-2024 History of Presen t illness [...] nursing note reviewed. Exam conducted with a dynamiter present. Vitals: There is no height or [...] Sammie Higginbotham DO documented in this encounter [facility] 08-05-2024 History of Presen t illness [...] nursing note reviewed. Exam conducted with a dynamiter present. Vitals: There is no height or [...] of: MARLEN Estrada documented in this encounter [facility] 07-08-2024 History of Presen t illness [...] Sammie Higginbotham DO documented in this encounter [facility] 06-07-2024 History of Presen t illness [...] or undercooked meat, and stay away from [facility]. Patient has also been advised to [...] Isabel Keating MA documented in this encounter [facility] Healthcare Evaluation note Diagnosis Missed menses 9 [...] DATE CREATED AUTHOR AUTHOR'S ORGANIZ ATION 11/15/2024 [facility] dical Specialists [facility] Care Teams (unrecognized sec tion and content) Litigation Coordinator Relationship Specialty Start Date End Date Emmy Higginbothamy, DO [address] [place] [address] PCP [facility] 09/04/23 Litigation Coordinator Relationship Specialty Start Date End Date Emmy Higginbothamy, DO [address] [place] [address] [facility] 09/04/23 Litigation Coordinator Relationship Specialty Start Date End Date Emmy Higginbothamy, DO [address] [place] [address] [facility] 09/04/23 Litigation Coordinator Relationship Specialty Start Date End Date Emmy Higginbothamy, DO [address] [place] [address] PCP [facility] 09/04/23 Litigation Coordinator Relationship Specialty Start Date End Date Emmy Higginbothamy, DO [address] [place] [address] [facility] 09/04/23 Litigation Coordinator Relationship Specialty Start Date End Date Emmy Higginbothamy, DO [address] [place] [address] [facility] 09/04/23 Litigation Coordinator Relationship Specialty Start Date End Date Sammie Higginbotham, DO [address] [place] [address] [facility] 09/04/23 Litigation Coordinator Relationship Specialty Start Date End Date Sammie Higginbotham, DO [address] [place] [address] [facility] 09/04/23 Litigation Coordinator Relationship Specialty Start Date End Date Sammie Higginbotham, DO [address] [place] [address] [facility] 09/04/23 Litigation Coordinator Relationship Specialty Start Date End Date Sammie Higginbotham, DO [address] [place] [address] [facility] 09/04/23 Litigation Coordinator Relationship Specialty Start Date End Date Sammie Higginbotham, DO [address] [place] [address] [facility] 09/04/23 Litigation Coordinator Relationship Specialty Start Date End Date Sammie Higginbotham, DO [address] [place] [address] [facility] 09/04/23 Reason for Visit (unrecogniz ed [...] BE BASED ON THE PRIMARY CLINICAL RECORDS. [employer] [facility]. provides no warranty or guarantee of the accuracy or completeness of information in this document.
== END 2024-11-25 10:56 | disposition home or self-care (01) ==
LOC: US 09:57 → FBC 10:24
PROVIDERS: Visit Provider Obstetrics & Gynecology
DX: O24.419 Gestational diabetes mellitus in pregnancy, unspecified control (principal); Z3A.34 34 weeks gestation of pregnancy
CPT/HCPCS: 76818

== ENCOUNTER 2024-11-28 07:50 | Outpatient (OUT) | payer OTHER, SELFPAY ==
--- OUTSIDE RECORDS SUMMARY | 2024-11-27 11:30 | XMS_ITS | Encounter Summary ---
Author Organization [facility] Address [address] [facility] [place] [address] Care Team Providers Care Nurse Licensed Practical Name Role Phone Emmy Higginbothamy DO Unavailable Reason for Visit * Reason Comments Routine Visit Encounter Details Date Type Department Care Team (Late st Contact Info) Description 11/27/2024 11:30 AM EDT Routine [facility] [address] [place] [address] Michael Higginbotham, [address] [facility] [address] [place], [facility] Third trimester ([facility]); 34 weeks gestation of ([facility]); Hypertension affecting in third trimester ([facility]); Gestational diabetes mellitus (GDM), antepartum, gestational diabetes method of control unspecified ([facility]); H/O pre-eclampsia in prior , currently ([facility]) Social History Tobacco Use Types Packs/Day [...] to check FSBS. Blood Glucose Monitoring Suppl ([employer] Glucometer) w/Device kit 1 kit, Does not [...] note reviewed. Exam conducted with a line controller present. Vitals: There is no height or weight on file to calculate BMI. BP: 140/86 Patient's last menstrual period was 04/01/2024. ASSESSMENT & PLAN ICD-10-CM 1. Third trimester ([facility]) Z34.93 POCT urinalysis dipstick manually resulted 2. 34 weeks gestation of ([facility]) Z3A.34 3. Hypertension affecting in third trimester ([facility]) O16.3 labetalol (Normodyne) 100 MGtablet 4. Gestational diabetes mellitus (GDM), antepartum, gestational diabetes method of control unspecified ([facility]) O24.419 5. H/O pre-eclampsia in prior , currently ([facility]) O09.299 Return OB: Patient presents today [...] Routine [facility] B[facility] OB [address] [place] [address] Mcihael Higginbotham DO [address] [place] [address] documented as of this encounter Procedures Procedure Name Priority Date/Time Associated Diagnosis Comments POCT URINALYSIS DIPSTICK Routine 11/27/2024 11:50 AM EDT Third trimester ([facility]) documented in this encounter Results * [...] this encounter Visit Diagnoses Diagnosis Third trimester ([facility]) state, incidental 34 weeks gestation of ([facility]) Hypertension affecting in third trimester ([facility]) Gestational diabetes mellitus (GDM), antepartum, gestational diabetes method of control unspecified ([facility]) H/O pre-eclampsia in prior , currently ([facility]) documented in this encounter Care Teams Nurse Licensed Practical Relationship Specialty Start Date End Date Michael Higginbotham DO [address] [place] [address] [place] [address] PCP - [facility] 09/04/23 documented as of this encounter
--- OUTSIDE RECORDS SUMMARY | 2024-11-28 07:53 | XMS_ITS | Clinical Summary ---
Author Organization [facility] Healthcare Address [address] [place] [address] Care Team Providers Care Slater Apprentice Name Role Phone Sammie Higginbotham DO Unavailable Allergies No known active allergies Medications Alcohol Swabs (Alcohol Prep Pad) 70 % padsIndication s:Elevated glucose tolerance test Apply 1 Pad topically Daily Use four times daily to check FSBS. 150 each 3 10/02/19 25 Active Blood Glucose Monitoring Suppl ([employer] Glucometer) w/Device kitIndications :Elevated glucose tolerance test 1 kit Daily Use four times daily to check FSBS. In the morning prior to breakfast & 1 hour after each meal for a total of 4times daily. 1 kit 10/02/19 25 026 Active labetalol (Normodyne) 100 MG tabletIndicati ons:Hypertensi on affecting in third trimester ([facility]) Take 2 tablets (200 mg) by mouth in the morning and 2 tablets (200 mg) before bedtime. 60 tablet 3 11/28/19 25 026 Active Progesterone Micronized (progesterone, bulk,) powder 06/13/19 25 025 Discontinued Lancets Ultra Thin miscIndication s:Elevated glucose tolerance test 1 each by In Vitro route Daily Use to check FSBS four times daily 150 each 3 10/02/19 25 025 Glucose Blood (Blood Glucose Test) stripIndicatio ns:Elevated glucose tolerance test 1 strip by In Vitro route Daily Use in the morning prior to breakfast, 1 hour after each meal for a total of 4times daily. 150 strip 3 10/02/19 25 025 labetalol (Normodyne) 100 MG tabletIndicati ons:Hypertensi on affecting in third trimester ([facility]) Take 1 tablet (100 mg) by mouth in the morning and 1 tablet (100 mg) before bedtime. 60 tablet 3 11/14/19 25 025 Discontinued(Re order) Encounters Date Type Department Care Team Description 11/27/2024 11:30 AM EDT Routine [facility] [address] [place] [address] Sammie Higginbotham, DO Third trimester ([facility]); 34 weeks gestation of ([facility]); Hypertension affecting in third trimester ([facility]); Gestational diabetes mellitus (GDM), antepartum, gestational diabetes method of control unspecified ([facility]); H/O pre-eclampsia in prior , currently ([facility]) 11/27/2024 Bamboo flowsheet [facility] [place] [address] Sammie Higginbotham, DO 11/25/2024 Clinisync Result Encounter [facility] External Department Unsolicited Sammie Higginbotham, DO 11/18/2024 Clinisync Result Encounter [facility] External Department Unsolicited Sammie Higginbotham, DO 11/18/2024 Results Follow-Up [facility] [place] [address] [place] [address] Leora Loredo LPN 11/15/2024 Telephone [facility] [place] [address] [place] [address] Cordelia Green LPN 11/13/2024 10:30 AM EDT Routine [facility] OB [facility] [place] [address] Diya Villanueva PA Hypertension affecting in third trimester ([facility]) (Primary Dx); 32 weeks gestation of ([facility]); Third trimester ([facility]) 11/13/2024 Clinisync Result Encounter [facility] External Department Unsolicited Sammie Higginbotham, DO 11/13/2024 Abstract [facility] [place] [address] [place] [address] Sammie Higginbotham, DO 11/13/2024 Bamboo flowsheet [facility] [address] [place] [address] Diya Villanueva PA 11/12/2024 Clinisync Result Encounter [facility] External Department Unsolicited Sammie Higginbotham, 10/30/2024 10:50 AM EDT Routine [facility]OM[facility] [address] [place] [address] Sammie Higginbotham, DO 30 weeks gestation of ([facility]); Third trimester ([facility]); H/O pre-eclampsia in prior , currently ([facility]); Gestational diabetes mellitus (GDM), antepartum, gestational diabetes method of control unspecified ([facility]) 10/30/2024 10:00 AM EDT Ancillary Procedure [facility] [address] [place] [address] H/O pre-eclampsia in prior , currently ([facility]) 10/14/20[address]phone [facility] [address] [place] [address] Paola Centeno MA 10/07/2024 Abstract [facility] [address] [place] [address] Sammie Higginbotham, 10/01/2024 9:30 AM EDT Routine [facility] [address] [place] [address] Lin Sellers NP Second trimester ([facility]); size inconsistent with dates ([facility]); H/O pre-eclampsia in prior , currently ([facility]); Gestational diabetes mellitus (GDM), antepartum, gestational diabetes method of control unspecified ([facility]); Elevated glucose tolerance test 10/01/2024 Abstract [facility] [address] [place] [address] Sammie Higginbotham, 10/01/2024 Bamboo flowsheet [facility] [address] [place] [address] Lin Sellers NP 09/05/2024 Abstract [facility] [address] [place] [address] Sammie Higginbotham DO 09/02/2024 9:50 AM EDT Routine [facility] [address] [place] [address] Sammie Higginbotham DO Second trimester ([facility]); 22 weeks gestation of ([facility]); Diabetes mellitus screening 09/02/2024 Bamboo flowsheet [facility] [address] [place] [address] Sammie Higginbotham DO from Last 3 Months Social History Tobacco [...] Description 12/11/2024 11:20 AM EDT Routine [facility] [address] [place] [address] Sammie Higginbotham DO [address] [place] [address] [place] [address] Health Maintenance Due Date Last Done Comments Influenza Vaccine (Season Ended) 2025 05/09/20 19 Cervical Cancer Screening 08/05/2029 HPV/Cotest 08/05/2029 03/15/2023 Pap Smear 08/05/2029 08/05/2024 Procedures Procedure Name Priority Date/Time Associated Diagnosis Comments POCT URINALYSIS DIPSTICK Routine 11/27/2024 11:50 AM EDT Third trimester ([facility]) US OB BPP W NON-STRESS 11/25/2024 10:37 AM EDT US OB BPP W NON-STRESS 11/18/2024 9:26 AM EDT TBH TOTAL PROTEIN 24 HOUR URINE Routine 11/13/2024 7:15 PM EDT POCT URINALYSIS DIPSTICK Routine 11/13/2024 10:33 AM EDT 32 weeks gestation of ([facility]) Third trimester ([facility]) TBH URINE T PROTEIN CREAT RATIO Routine 11/12/2024 3:00 PM EDT MHPT FIBRINOGEN Routine 11/12/2024 1:58 PM EDT [facility] APTT Routine 11/12/2024 1:58 PM EDT [facility] PROTHROMBIN TIME INR W/O COUM Routine 11/12/2024 1:58 PM EDT [facility] ALT Routine 11/12/2024 1:58 PM EDT [facility] AST Routine 11/12/2024 1:58 PM EDT ALL URIC ACID Routine 11/12/2024 1:58 PM EDT TBH CREATININE Routine 11/12/2024 1:58 PM EDT ALL BUN Routine 11/12/2024 1:58 PM EDT ALL CBC WITH AUTO DIFF Routine 1:58 PM EDT US OB BPP W NON-STRESS 11/12/2024 12:14 PM EDT POCT URINALYSIS DIPSTICK Routine 10/30/2024 10:35 AM EDT 30 weeks gestation of ([facility]) Third trimester ([facility]) US OB FOLLOW UP TRANSABDOMINAL APPROACH Routine 10/30/2024 10:16 AM EDT H/O pre-eclampsia in prior , currently ([facility]) POCT URINALYSIS DIPSTICK Routine 09/02/2024 9:53 AM EDT Second trimester ([facility]) PAP SMEAR Routine 08/05/2024 12:00 AM EST THINPREP PAP AND HPV MRNA E6/E7 W/RFL HPV 16,18/45 Routine 03/15/2023 12:16 PM EDT Well woman exam with routine gynecological exam from Last 3 Months or Most Recently Relevant to Health Maintenance Results * (ABNORMAL) POCT urinalysis dipstick manually resulted (11/27/2024 11:50 AM EDT) Only the most recent of4 resultswithin the time period is included. Color, [...] Positive Urine 11/27/2024 11:5 0 AM EDT Sammie Higginbotham DO POINT OF CARE TEST ENTER/EDIT OR DERABLES Final Result * US OB BPP W NON-STRESS (11/25/2024 10:37 AM EDT) Only the most recent of3 resultswithin the time period is included. Anatomical Region Laterality Modality Other 11/25/2024 10:3 7 AM EDT Narrative 11/25/2024 10:40 [place] [address] Ultrasound Report Signed Patient: JANINA HUMMEL MR#: [id number] : 1990 Acct:[id number] Age/Sex: 34 / F ADM Date: 11/25/24 Loc: [facility] 251-[address]: Sammie Hgiginbotham D.O. Ordering Physician: Sammie Higginbotham D.O. Date of Service: 11/25/24 Procedure(s): US OB BPP w non-stress Accession Number(s): [id number] cc: Sammie Higginbotham D.O.; Physician,Non-Staff M.[place] [address] Patient Name: JANINA HUMMEL MRN: [id number] date: 1990 Sex: F Assigned Patient Location: Current Patient Location: US Accession/Order Number: [id number] Exam Date: 11/25/2024 10:35 Report Date: 11/25/2024 10:37 At the request of: SAMMIE HIGGINBOTHAM DO Procedure: US OB BPP w non-stress BIOPHYSICAL PROFILE: CLINICAL INFORMATION: History of pre-eclampsia, gestational diabetes mellitus COMPARISON: 11/18/2024 There is a single live intrauterine gestation in cephalic presentation. The reported gestational age is 34 weeks 0 days. The heart rate measures 142 beats per minute. FINDINGS: TONE: 1 or [...] greater than 2 cm [Y] 2/2 JUSTA: 15.3 cm. This is in normal range. Total score: 8/8 US/US OB BPP w non-stress IMPRESSION: NORMAL BIOPHYSICAL PROFILE Impression dictated by: Madie Long M.D. 11/25/2024 10:37 AM Dictation Location: [place] [address] Electronically authenticated by: [id number] Y Date: 11/25/2024 10:37 Dictated By: Madie Long M.D. Signed By: 11/25/24 1040 DD/ 1037 TD/TT: Fruit Sprayer: Procedure Note Radiology, Radiologist, MD - 11/25/2024 [place] [address] Ultrasound Report Signed Patient: JANINA HUMMEL LMR#: [id number] : 1990Acct:[id number] Age/Sex: 34 / FADM Date: 11/25/24 Loc: [facility] 251-[address]: Sammie Higginbotham D.O. Ordering Physician: Sammie Higginbotham D.O. Date of Service: 11/25/24 Procedure(s): US OB BPP w non-stress Accession Number(s): [id number] cc: Sammie Higginbotham D.O.; Physician,Non-Staff [place] [id number] Patient Name: JANINA HUMMEL MRN: [id number] date: 1990 Sex: F Assigned Patient Location: US Current Patient Location: US Accession/Order Number: [id number] Exam Date: 11/25/2024 10:35 Report Date: 11/25/2024 10:37 At the request of: SAMMIE HIGGINBOTHAM DO Procedure: US OB BPP w non-stress BIOPHYSICAL PROFILE: CLINICAL INFORMATION: History of pre-eclampsia, gestational diabetesmellitus COMPARISON: 11/18/2024 There is a single live intrauterine gestation in cephalic presentation.The reported gestational age is 34 weeks 0 days. The heart ratemeasures 142 beats per minute. FINDINGS: TONE: 1 or [...] greater than 2 cm [Y] 2/2 JUSTA: 15.3 cm. This is in normal range. Total score: 8/ US/US OB BPP w non-stress IMPRESSION: NORMAL BIOPHYSICAL PROFILE Impression dictated by: Madie Long M.D. 11/25/2024 10:37 AM Dictation Location: [place] [address] Electronically authenticated by: [id number] Y Date: 0:37 Dictated By: Madie Long M.D. Signed By:11/25/24 1040 DD/ 1037 TD/TT: Fruit Sprayer: Sammie Neftaly DO [facility] Final Result * (ABNORMAL) TBH TOTAL PROTEIN 24 HOUR URINE (11/13/2024 7:15 PM EDT) Pathologist [facility] TOTAL PROTEIN URINE RANDOM 10.8 <=11.9 mg/dL TBH TOTAL VOLUME 24 HOUR URINE 2,800 mL/24hr TBH TBH TOTAL PROTEIN 24 HOUR URINE 302.4(H) <=149.1 mg/24hr TBH 11/13/2024 7:15 PM EDT 11/13/2024 8:54 PM EDT Narrative [facility] - 11/13/2024 10:18 PM EDT Sammie Neftaly DO [facility] Final [facility] * (ABNORMAL) [facility] URINE T PROTEIN CREAT RATIO (11/12/2024 3:00 PM EDT) TOTAL PROTEIN URINE RANDOM <6.0 <=11.9 mg/dL TBH CREATININE URINE RANDOM 19.35(L) 20.00 - 300.00 mg/dL TBH 11/12/2024 3:00 PM EDT 11/12/2024 3:00 PM EDT Narrative [facility] - 11/12/2024 3:08 PM EDT [facility] Final Result [facility] * (ABNORMAL) TBH CREATININE (11/12/2024 1:58 PM EDT) CREATININE 0.49(L) 0.55 - 1.02 mg/dL TBH TBH EGFR-AF HAITIAN >60 >=60 mL/min/1.7 3m 2 TBH TBH EGFR-NON AF HAITIAN >60 >=60 mL/min/1.7 3m 2 TBH 11/12/2024 1:58 PM EDT 11/12/2024 2:02 PM EDT Narrative [facility] - 11/12/2024 2:20 PM EDT [facility] Final Result Performing Organization Address [facility]/ZIP Co de Phone Number [facility] * [facility] PROTHROMBIN TIME INR W/O COUM (11/12/2024 1:58 PM EDT) PROTHROMBIN TIME 9.8 9.0 - 11.6 sec TBH TBH INR <0.93 TBH Comment: DESIRED INR: 2.0-3.0 CONDITIONS NOT LISTED BELOW 2.5-3.5 FOR PROSTHETIC HEART VALVE REPLACEMENT 2.5-3.5 RECURRENT THROMBOSIS 11/12/2024 1:58 PM EDT 11/12/2024 2:02 PM EDT Narrative [facility] - 11/12/2024 2:48 PM EDT us Sammie Neftaly DO [facility] Final Result [facility] * (ABNORMAL) MHPT FIBRINOGEN (11/12/2024 1:58 PM EDT) FIBRINOGEN 537(H) 200 - 400 mg/dL TBH 11/12/2024 1:58 PM EDT 11/12/2024 2:02 PM EDT Narrative [facility] - 11/12/2024 2:48 PM EDT us Sammie Neftaly DO [facility] Final Result Performing Organization Address [facility]/ZIP Co de Phone Number [facility] * (ABNORMAL) [facility] AST (11/12/2024 1:58 PM EDT) ASPARTATE AMINO TRANSFERASE 11(L) 15 - 37 U/L TBH 11/12/2024 1:58 PM EDT 11/12/2024 2:02 PM EDT Narrative [facility] - 11/12/2024 2:20 PM EDT Sammie Neftaly DO [facility] Final Result Performing Organization Address [facility] Co de Phone Number [facility] * [facility] APTT (11/12/2024 1:58 PM EDT) PARTIAL THROMBOPLASTIN TIME 23.3 22.3 - 36.2 sec TBH 11/12/2024 1:58 PM EDT 11/12/2024 2:02 PM EDT Narrative [facility] - 11/12/2024 2:48 PM EDT Sammie Neftaly DO [facility] Final Result Performing Organization Address [facility] Co de Phone Number [facility] * [facility] ALT (11/12/2024 1:58 PM EDT) ALANINE AMINOTRANSFERASE 14 14 - 59 U/L TBH 11/12/2024 1:58 PM EDT 11/12/2024 2:02 PM EDT Narrative [facility] - 11/12/2024 2:20 PM EDT Sammie Neftaly DO [facility] Final Result [facility] * ALL URIC ACID (11/12/2024 1:58 PM EDT) Pathologist [facility] URIC ACID 3.6 2.6 - 6.0 mg/dL TB 11/12/2024 1:58 PM EDT 11/12/2024 2:02 PM EDT Narrative [facility] - 11/12/2024 2:20 PM EDT Sammie Neftaly DO [facility] Final Result Performing Organization Address City/[facility]/ZIP Co de Phone Number [facility] TB * (ABNORMAL) ALL CBC WITH AUTO DIFF (11/12/2024 1:58 PM EDT) Pathologist [facility] TB WBC 13.8(H) 4.0 - 11.0 10 3/uL TBH TBH RBC 3.74(L) 4.20 - 5.40 10 6/uL TBH TBH HGB 10.1(L) 12.0 - 16.0 g/dL TB TB HCT 30.7(L) 36.0 - 48.0 % TBH TBH MCV 82.1 81.0 - 99.0 fL TBH TBH MCH 27.0 26.7 - 34.0 pg TBH TBH MCHC 32.9 29.9 - 35.2 g/dL TB TBH RDW 13.7 11.0 - 15.0 % [...] Narrative [facility] - 11/12/2024 2:10 PM EDT us Sammie Neftaly DO [facility] Final Result Performing Organization Address City/[facility]/ZIP Co de Phone Number [facility] * ALL BUN (11/12/2024 1:58 PM EDT) Pathologist [facility] BLOOD UREA NITROGEN 13.0 7.0 - 18.0 mg/dL TBH 11/12/2024 1:58 PM EDT 11/12/2024 2:02 PM EDT Narrative [facility] - 11/12/2024 2:20 PM EDT us Sammie Neftaly DO [facility] Final Result [facility] * US OB follow up transabdominal approach [...] II, MD, PHD at 30-Oct-2024 11:19:03 PM [facility] Procedure Note Amy Steele MD - [...] AMY STEELE II, MD, PHD 11:19:03 PM [facility] us Lin Sellers NATURAL RESOURCES SPECIALIST IMG OB US PROCEDURES Final Re sult * Pap Smear (08/05/2024 12:00 AM EST) Swab Cervical swab / Unknown us Diya GEE LAB CYTOLOGY ORDERABLES Final Re sult EXTERNAL LAB * THINPREP PAP AND HPV MRNA E6/E7 W/RFL HPV 16,18/45 (03/15/2023 12:16 PM EDT) us Sammie Higginbotham DO LAB BLOOD ORDERABLES Final Resul t EXTERNAL LAB from Last 3 Months or Most Recently Relevant to Health Maintenance Insurance [employer] Care Teams Slater Apprentice Relationship Specialty Start Date End Date Sammie Higginbotham DO [facility] [place] [address] [facility] 09/04/23
--- OUTSIDE RECORDS SUMMARY | 2024-11-28 07:53 | XMS_ITS | Clinical Summary ---
Author Organization [employer] tem Address [id number] [address] [place] [address] Care Team Providers Care Substation Operator Name Role Phone No Pcp, No Pcp [...] on file Insurance [employer] Care Teams Substation Operator Relationship Specialty Start Date End Date No Pcp, [place] [address] PCP - General Family Medicine 02/26/20
--- OUTSIDE RECORDS SUMMARY | 2024-11-28 07:53 | XMS_ITS | Encounter Summary ---
Author Organization [facility] Address [address] [facility] [place] [address] Care Team Providers Care Liquefier Name Role Phone Michael Higginbotham DO Unavailable Encounter Details Date Type Department Care Team (Late st Contact Info) Description 02/25/2023 Abstract [facility] [address] [place] [address] Michael Higginbotham DO [address], [facility] Social History Tobacco Use Types Packs/Day Years [...] Description 12/11/2024 11:20 AM EDT Routine [facility] OB [address] [place] [phone] Michael Higginbotham DO [address], [place] [address] documented as of this encounter Visit Diagnoses Not on filedocumented in this encounter Care Teams Liquefier Relationship Specialty Start Date End Date Michael Higginbotham DO [place], [place] [id number] PCP - [facility] 09/04/23 documented as of this encounter
--- OUTSIDE RECORDS SUMMARY | 2024-11-28 07:53 | XMS_ITS | Encounter Summary ---
Author Organization [facility] Address [address] [place] [address] Care Team Providers Care Poultry Vaccinator Name Role Phone Michael Higginbotham DO Unavailable Encounter Details Date Type Department Care Team (Late st Contact Info) Description 10/01/[address] [facility] OB [address] [place] [address] Michael Higginbotham [address] [place] [address] Social History Tobacco Use Types Packs/Day [...] Description 12/11/2024 11:20 AM EDT [facility] OB [address] [place] [address] Michael Higginbotham, DO [address], [facility]11 documented as of this encounter Visit Diagnoses Not on filedocumented in this encounter Care Teams Poultry Vaccinator Relationship Specialty Start Date End Date Michael Higginbotham DO [facility] [address] [place], [place] [phone] PCP - [facility] RECEPT[facility] 09/04/23 documented as of this encounter
--- OUTSIDE RECORDS SUMMARY | 2024-11-28 07:53 | XMS_ITS | Encounter Summary ---
Author Organization [facility] Address [address] [facility] [place] [address] Care Team Providers Care Division Manager Name Role Phone Michael Higginbotham DO Unavailable Encounter Details Date Type Department Care Team (Late st Contact Info) Description 11/27/2024 Bamboo flowsheet [facility] OB [address] [place] [address] Michael Higginbotham [facility] [address] [place], [facility]11 Social History Tobacco Use Types Packs/Day Years [...] AM EDT Routine [facility] OB [address] [place] [address] Michael Higginbotham, DO [address] [place], [place] [id number] documented as of this encounter Visit Diagnoses Not on filedocumented in this encounter Care Teams Division Manager Relationship Specialty Start Date End Date Michael Higginbotham DO [facility] [address] [place], [place] [id number] PCP - [facility] 09/04/23 documented as of this encounter
--- OUTSIDE RECORDS SUMMARY | 2024-11-28 07:53 | XMS_ITS | Encounter Summary ---
Author Organization [facility] Address [address] [facility] [place] [address] Care Team Providers Care Loan Interviewer Name Role Phone Michael Higginbotham DO Unavailable Encounter Details Date Type Department Care Team (Late st Contact Info) Description 08/19/2024 Orders Only [facility] [address] [place] [address] Isabel Keating [place] [address] [place] [address] Social History Tobacco Use Types Packs/Day Years [...] Description 12/11/2024 11:20 AM EDT Routine [facility] OB [address] [place] [address] Michael Higginbotham, [address] [place], [place] [phone] documented as of this encounter Procedures Procedure Name Priority Date/Time Associated Diagnosis Comments PAP SMEAR Routine 08/05/2024 12:00 AM EST documented in this encounter Results * Pap Smear (08/05/2024 12:00 AM EST) Swab Cervical swab / Unknown [facility] CYTOLOGY ORDERABLES Final Re sult EX[facility]NAL [facility] documented in this encounter Visit Diagnoses Not on filedocumented in this encounter Care Teams Loan Interviewer Relationship Specialty Start Date End Date Michael Higginbotham DO [address] [place] [address] PCP - [facility] CURRICULUM AND ASSESSMENT COORDINATOR 09/04/23 documented as of this encounter
--- OUTSIDE RECORDS SUMMARY | 2024-11-28 07:53 | XMS_ITS | Encounter Summary ---
Author Organization [facility] Address [address] [place] [address] Care Team Providers Care Retail Seasonal Specialist Name Role Phone Michael Higginbotham DO Unavailable Encounter Details Date Type Department Care Team (Late st Contact Info) Description 11/13/2024 Abstract [facility] OB [address] [place] [address] Michael Higginbotham [address], [facility]11 Social History Tobacco Use Types Packs/Day [...] Description 12/11/2024 11:20 AM EDT Routine [facility] OB [address] [place] [address] Michael Higginbotham, DO [address], [facility]11 documented as of this encounter Visit Diagnoses Not on filedocumented in this encounter Care Teams Retail Seasonal Specialist Relationship Specialty Start Date End Date Michael Higginbotham DO [facility] [place] [place], [place] [phone] PCP - [facility] HAR[facility] 09/04/23 documented as of this encounter
--- OUTSIDE RECORDS SUMMARY | 2024-11-28 07:53 | XMS_ITS | Encounter Summary ---
Author Organization [facility] Address [address] [facility] [place] [address] Care Team Providers Care Librarian Helper Name Role Phone Michael Higginbotham DO Unavailable Encounter Details Date Type Department Care Team (Late st Contact Info) Description 10/07/[address] [facility] [address] [place] [address] Michael Higginbotham [address] [place] [address] Social History Tobacco Use Types Packs/Day [...] Description 12/11/2024 11:20 AM EDT Routine [facility] OB [address] [place] [address] Michael Higginbotham, DO [address], [facility]11 documented as of this encounter Visit Diagnoses Not on filedocumented in this encounter Care Teams Librarian Helper Relationship Specialty Start Date End Date Michael Higginbotham DO [facility] [address] [place], [place] [phone] PCP - [facility] HARVEST WORKER 09/04/23 documented as of this encounter
--- OUTSIDE RECORDS SUMMARY | 2024-11-28 07:53 | XMS_ITS | Encounter Summary ---
Author Organization [facility] Address [address] [place] [address] Care Team Providers Care Emergency Veterinary Technician Name Role Phone Sammie Higginbotham DO Unavailable Encounter Details Date Type Department Care Team (Late st Contact Info) Description 11/25/2024 Clinisync Result Encounter [facility] External Department [facility]solicited [facility] [address] [place], [place] [phone] Social History Tobacco Use Types Packs/Day Years [...] AM EDT Routine [facility] OB [address] [place] [phone] Sammie Higginbotham, [facility] [place] [address] documented as of this encounter Procedures Procedure Name Priority Date/Time Associated Diagnosis Comments US OB BPP W NON-STRESS 11/25/2024 10:37 AM EDT documented in this encounter Results * US OB BPP W NON-STRESS (11/25/2024 10:37 AM EDT) Anatomical Region Laterality Modality Other 11/25/2024 10:3 7 AM EDT Narrative 11/25/2024 10:40 [place] [address] Ultrasound Report Signed Patient: JANINA HUMMEL MR#: [id number] : 1990 Acct:[id number] Age/Sex: 34 / F ADM Date: 11/25/24 Loc: [facility] 251-[address]: Sammie Higginbotham D.O. Ordering Physician: Sammie Higginbotham D.O. Date of Service: 11/25/24 Procedure(s): US OB BPP w non-stress Accession Number(s): [id number] cc: Sammie Higginbotham D.O.; Physician,Non-Staff Mylene The [place] [address] Patient Name: JANINA HUMMEL MRN: [facility]:[id number] date: 1990 Sex: F Assigned Patient Location: Current Patient Location: US Accession/Order Number: [id number] Exam Date: 11/25/2024 10:35 Report Date: 11/25/2024 [...] Long M.D. 11/25/2024 10:37 AM Dictation Location: [place] [address] Electronically authenticated by: [id number] Y Date: 11/25/2024 10:37 Dictated By: Madie Long M.D. Signed By: 11/25/24 1040 DD/ 1037 TD/TT: Launch Engineer: Procedure Note Radiology, Radiologist, MD - 11/25/2024 [place] [address] Ultrasound Report Signed Patient: JANINA HUMMEL LMR#: [id number] : 1990Acct:[id number] Age/Sex: 34 / FADM Date: 11/25/24 Loc: [facility] 251-[address]: Sammie Higginbotham D.O. Ordering Physician: Sammie Higginbotham D.O. Date of Service: 11/25/24 Procedure(s): US OB BPP w non-stress Accession Number(s): [id number] cc: Sammie Higginbotham D.O.; Physician,Non-Staff Mylene The [place] [id number] Patient Name: JANINA HUMMEL MRN: [id number] date: 1990 Sex: F Assigned Patient Location: Current Patient Location: US Accession/Order Number: [id number] Exam Date: 11/25/2024 10:35 Report Date: 11/25/2024 [...] Long M.D. 11/25/2024 10:37 AM Dictation Location: [place] [address] Electronically authenticated by: [id number] Y Date: 0:37 Dictated By: Madie Long M.D. Signed By:11/25/24 1040 DD/ 1037 TD/TT: Launch Engineer: us Sammie Higginbotham DO [facility] Final Result documented in this encounter Visit Diagnoses Not on filedocumented in this encounter Care Teams Emergency Veterinary Technician Relationship Specialty Start Date End Date Sammie Higginbotham DO [address] [place] [address] [place] [address] PCP - [facility] 09/04/23 documented as of this encounter
--- OUTSIDE RECORDS SUMMARY | 2024-11-28 07:53 | XMS_ITS | Encounter Summary ---
Author Organization [facility] Address [address] [facility] [place] [address] Care Team Providers Care Wine Maker Name Role Phone Michael Higginbotham DO Unavailable Encounter Details Date Type Department Care Team (Late st Contact Info) Description 11/15/2024 Telephone [facility] OB [address] [place] [address] [place] [address] Cordelia Green LPN Social History Tobacco [...] scheduled for her NST this morning at [facility] and patient was advised to notify them of any concerns/issues she had. PVU and will reach out to office with frther concerns. Cordelia Winn LPN documented in this encounter Plan of Treatment Upcoming Encounters Date Type Department Care Team (Late st Contact Info) Description 12/11/2024 11:20 AM EDT Routine [facility] OB [address] [place] [address] Michael Higginbotham DO [address] [place] [address] documented as of this encounter Visit Diagnoses Not on filedocumented in this encounter Care Teams Wine Maker Relationship Specialty Start Date End Date Michael Higginbotham DO [address] [place] [address] PCP - [facility] 09/04/23 documented as of this encounter
--- OUTSIDE RECORDS SUMMARY | 2024-11-28 07:53 | XMS_ITS | Encounter Summary ---
Author Organization [facility] Address [address] [place] [address] Care Team Providers Care Supervisor Metal Cans Name Role Phone Michael Higginbotham DO Unavailable Encounter Details Date Type Department Care Team (Late st Contact Info) Description 09/05/2024 Abstract [facility] OB [address] [place] [address] Michael Higginbotham [address] [place] [address] Social History Tobacco Use Types Packs/Day [...] Description 12/11/2024 11:20 AM EDT Routine [facility] OB [address] [place] [address] Michael Higginbotham, DO [address], [facility]11 documented as of this encounter Visit Diagnoses Not on filedocumented in this encounter Care Teams Supervisor Metal Cans Relationship Specialty Start Date End Date Michael Higginbotham DO [facility] [place] [place], [place] [address] PCP - [facility] TECHNICIAN SEMICONDUCTOR DEVELOPMENT 09/04/23 documented as of this encounter
--- OUTSIDE RECORDS SUMMARY | 2024-11-28 07:53 | XMS_ITS | Encounter Summary ---
Author Organization [facility] Address [address] [place] [address] Care Team Providers Care Nub Card Tender Name Role Phone Sammie Higginbotham DO Unavailable Encounter Details Date Type Department Care Team (Late st Contact Info) Description 11/18/2024 Clinisync Result Encounter [facility] External Department [facility]solicited [facility] [address] [place], [place] [address] Social History Tobacco Use Types Packs/Day Years [...] AM EDT Routine [facility] OB [address] [place] [phone] Sammie Higginbotham, [facility] [place] [address] documented as of this encounter Procedures Procedure Name Priority Date/Time Associated Diagnosis Comments US OB BPP W NON-STRESS 11/18/2024 9:26 AM EDT documented in this encounter Results * US OB BPP W NON-STRESS (11/18/2024 9:26 AM EDT) Anatomical Region Laterality Modality Other 11/18/2024 9:26 AM EDT Narrative 11/18/2024 9:28 AM EDT [address] [address] Ultrasound Report Signed Patient: JANINA HUMMEL MR#: [id number] : 1990 Acct:[id number] Age/Sex: 34 / F ADM Date: 11/18/24 Loc: [facility] 250-[address]: Sammie Higginbotham D.O. Ordering Physician: Sammie Higginbotham D.O. Date of Service: 11/18/24 Procedure(s): US OB BPP w non-stress Accession Number(s): [id number] cc: Sammie Higginbotham D.O.; Physician,Non-Staff Mylene The [address] [address] Patient Name: JANINA HUMMEL MRN: [facility]:[id number] date: 1990 Sex: F Assigned Patient Location: [facility] Current Patient Location: [facility] Accession/Order Number: [id number] Exam Date: 11/18/2024 09:24 Report Date: 11/18/2024 [...] Long M.D. 11/18/2024 9:26 AM Dictation Location: [place] [address] Electronically authenticated by: [id number] Y Date: 11/18/2024 09:26 Dictated By: Madie Long M.D. Signed By: 11/18/24927 DD/ 5 TD/TT: Administrative Asst: Procedure Note Radiology, Radiologist, MD - 11/18/2024 [place] [address] Ultrasound Report Signed Patient: JANINA HUMMEL LMR#: [id number] : 1990Acct:[id number] Age/Sex: 34 / FADM Date: 11/18/24 Loc: [facility] 250-[address]: Sammie Higginbotham D.O. Ordering Physician: Sammie Higginbotham D.O. Date of Service: 11/18/24 Procedure(s): US OB BPP w non-stress Accession Number(s): [id number] cc: Sammie Higginbotham D.O.; Physician,Non-Staff Mylene The [place] [id number] Patient Name: JANINA HUMMEL MRN: [id number] date: 1990 Sex: F Assigned Patient Location: [facility] Current Patient Location: [facility] Accession/Order Number: [id number] Exam Date: 11/18/2024 09:24 Report Date: 11/18/2024 09:26 At the request of: SAMMIE HIGGINBOTHAM DO Procedure: US OB BPP w non-stress BIOPHYSICAL PROFILE: CLINICAL INFORMATION: Gestational diabetes mellitus COMPARISON: 11/12/2024. There is a single live intrauterine gestation in cephalic presentation.The reported gestational age is 33 weeks 0 days. The heart ratemeasures 157 beats per minute. FINDINGS: TONE: 1 or more episodes of activity extension and flexion of extremity or opening and closing of the hand [Y] 2/2 GROSS BODY MOVEMENTS: 3 or more discrete body or limb movements [Y] 2/2 BREATHING MOVEMENTS: 1 or more episodes of breathing lastingat least 30 seconds [Y] 2/2 UJSTA: A single deepest vertical pocket of amniotic fluid greater than 2 cm [Y] 2/2 JUSTA: 10.8 cm. This is in low-normal range. Total score: 8/8 US/US OB BPP w non-stress IMPRESSION: NORMAL BIOPHYSICAL PROFILE . Impression dictated by: Madie Long M.D. 11/18/2024 9:26 AM Dictation Location: [place] [address] Electronically authenticated by: [id number] Y Date: 9:26 Dictated By: Madie Long M.D. Signed By:11/18/24927 DD/ 5 TD/TT: Administrative Asst: us Sammie Higginbotham DO [facility] Final Result documented in this encounter Visit Diagnoses Not on filedocumented in this encounter Care Teams Nub Card Tender Relationship Specialty Start Date End Date Sammie Higginbotham DO [address] [place] [address] [place] [address] PCP - [facility] 09/04/23 documented as of this encounter
--- OUTSIDE RECORDS SUMMARY | 2024-11-28 07:53 | XMS_ITS | Encounter Summary ---
Author Organization [facility]air[facility] Address [facility] [id number] [address] [place] [address] Care Team Providers Care Oracle Application Architect Name Role Phone No Pcp, No Pcp Primary Care Provider Unavailabl e Reason for Referral * Diagnostic Imaging (Routine) - Closed Specialty Diagnoses / Procedures Referred By Contac t Referred To Contact Maternal and Medicine Diagnoses Abnormal chromosomal and genetic finding on screening of mother History of pre-eclampsia Hx of delivery, currently Procedures US [facility] with or without consult Navarro Kee MD Phone: tel: fax: Maternal- Medicine at [place] [address] [place] [address] Phone: tel: fax: Referral ID Status Reason Start Date Expiration Date Visits Re quested Visits Authorized [id number] Closed 08/24/2020 08/24/2021 1 1 Encounter Details Date Type Department Care Team (Late st Contact Info) Description 08/24/2020 Orders Only [facility] at [place] [address] [place] [phone] Navarro Kee MD [address] [facility], [address] [place] [address] Abnormal chromosomal and genetic finding on screening [...] documented as of this encounter Results * [facility] OB FOLLOW-UP, 1 FETUS (09/21/2020 10:31 AM [...] Final 09/21/2020 11:31) PATIENT INFO: ID #: [id number] : [birth year] (30 yrs)(F) Name: JANINA MC Visit Date: 09/21/2020 10:06 HUMMEL PERFORMED BY: Performed By: Margret Hernandez RDMS Attending: Wes Szymanski MD Referred By: Michael Higginbotham DO Ref. Address: [address] [place] [address] [place] [address] Location: Maternal Medicine [place] SERVICE(S) PROVIDED: OB Follow-up, 1 fetus 71126 Echocardiogram-complete 15631 INDICATIONS: Screening for follow-up survey Z36.2 History [...] Arch: Previously seen SVC: Previously seen Cardiac [place]: Appears normal Diaphragm: Appears normal 3 Vessel [...] Final 09/21/2020 11:31) PATIENT INFO: ID #: [id number] : [birth year] (30 yrs)(F) Name: JANINA MC Visit Date: 09/21/2020 10:06 HUMMEL PERFORMED BY: Performed By: Margret Hernandez RDMS Attending: Wes Szymanski MD Referred By: Michael Duncan. Address: [address] [place] [address] [place] [address] Location: [facility]aternal [facility] SERVICE(S) PROVIDED: OB Follow-up, 1 fetus 58447 Echocardiogram-complete 96952 INDICATIONS: Screening for follow-up survey Z36.2 History [...] Arch: Previously seen SVC: Previously seen Cardiac [place]: Appears normal Diaphragm: Appears normal 3 Vessel [...] trimester documented in this encounter Care Teams Oracle Application Architect Relationship Specialty Start Date End Date No Pcp, No Pcp [place] [address] PCP - General Family Medicine 02/26/20 documented as of this encounter
--- OUTSIDE RECORDS SUMMARY | 2024-11-28 07:53 | XMS_ITS | Encounter Summary ---
Author Organization [facility] Address [address] [place] [address] Care Team Providers Care Dev Manager Name Role Phone Michael Higginbotham DO Unavailable Encounter Details Date Type Department Care Team (Late st Contact Info) Description 11/13/2024 Clinisync Result Encounter [facility] External Department Unsolicited Michael Higginbotham, [address] [place], [place] [id number] Social History Tobacco Use Types Packs/Day Years [...] AM EDT Routine [facility] OB [address] [place] [phone] Michael Higginbotham, [address] [place] [address] documented as of this encounter Procedures Procedure [...] us Michael Higginbotham DO [facility] documented in this encounter Visit Diagnoses Not on filedocumented in this encounter Care Teams Dev Manager Relationship Specialty Start Date End Date Michael Higginbotham DO [address] [place] [address] [place] [address] PCP - [facility] 09/04/23 documented as of this encounter
--- OUTSIDE RECORDS SUMMARY | 2024-11-28 07:53 | XMS_ITS | Encounter Summary ---
Author Organization [facility] Address [address] [facility] [place] [address] Care Team Providers Care Foster Parent Name Role Phone Michael Higginbotham DO Unavailable Encounter Details Date Type Department Care Team (Late st Contact Info) Description 07/01/2024 Abstract [facility] OB [address] [place] [address] Michael Higgnibotham [address] [place] [address] Social History Tobacco Use Types Packs/Day [...] [facility] OB [address] [place] [address] Michael Higginbotham, DO [address] [place], [facility]11 documented as of this encounter Visit Diagnoses Not on filedocumented in this encounter Care Teams Foster Parent Relationship Specialty Start Date End Date Michael Higginbotham DO [facility] [address] [place], [place] [phone] PCP - [facility] DRAPERY INSTALLER 09/04/23 documented as of this encounter
--- OUTSIDE RECORDS SUMMARY | 2024-11-28 07:53 | XMS_ITS | Encounter Summary ---
Author Organization [facility] Address [address] [facility] [place] [address] Care Team Providers Care Aviation Manager Name Role Phone Neftaly Michael DO Unavailable Encounter Details Date Type Department Care Team (Late st Contact Info) Description 11/18/2024 Results Follow-Up [facility] OB [address] [facility] [address] Leora Loredo LPN [address] [place] [address] Social History Tobacco Use Types Packs/Day [...] as of this encounter Miscellaneous Notes * Result Encounter Note - Leora Loredo LPN - 11/18/2024 7:56 AM EDT Placed on chart documented in this encounter Plan of Treatment Upcoming Encounters Date Type Department Care Team (Late st Contact Info) Description 12/11/2024 11:20 AM EDT Routine [facility] OB [address] [place] [address] Michael Higginbotham, [address] [facility] [address] [place], [place] [phone] documented as of this encounter Visit Diagnoses Not on filedocumented in this encounter Care Teams Aviation Manager Relationship Specialty Start Date End Date Michael Higginbotham DO [address] [place] [address] [place] [address] PCP - [facility] 09/04/23 documented as of this encounter
[2024-11-28 08:01] VITALS: BP 125/78; PULSE 98
--- OUTSIDE RECORDS SUMMARY | 2024-11-28 08:06 | XMS_ITS | CCD ---
Author Organization [facility] CliniSys[facility] Care Team Providers Care [employer] Operations Duty Manager Name Role Phone NEFTALY, DR COCHRAN Attending [...] Unavaila ble KARASIPavan, DR LOTT Consulting Unavailable COMFORT, DR POLLO Gonzalez Consulting Unavailable NEFTALY, DR [...] Glucose Monitoring Suppl (D-Care Glucometer) w/Device kit (12 sources) Start: 10-01-2024 End: 10-01-2025 Blood Glucose Monitoring Suppl (D-Care Glucometer) w/Device kit Indications: Elevated glucose tolerance test 1 kit Daily Use four times daily to check FSBS. In the morning prior to breakfast & 1 hour after each meal for a total of 4times daily. 1 kit 10/01/2024 10/01/2025 Active isopropyl alcohol 0.7 ml/ml medicated pad (12 sources) Start: 10-01-2024 Alcohol Swabs (Alcohol Prep Pad) 70 % pads Indications: Elevated glucose tolerance test Apply 1 Pad topically Daily Use four times daily to check FSBS. 150 each 3 10/01/2024 Active labetalol hydrochloride 100 mg oral tablet (10 sources) beta-Adrenergic Katarina Start: 11-27-2024 End: 11-27-2025 take 2 tablets by mouth in the morning labetalol (Normodyne) 100 MG tablet Indications: Hypertension affecting in third trimester (HHS-HCC) Take 2 tablets (200 mg) by mouth in the morning and 2 tablets (200 mg) before bedtime. 60 tablet 3 11/27/2024 11/27/2025 Active Start: 11-13-2024 End: 11-13-2025 take 1 tablet by mouth in the morning labetalol (Normodyne) 100 MG tablet Indications: Hypertension affecting in third trimester (HHS-HCC) Take 1 tablet (100 mg) by mouth in the morning and 1 tablet (100 mg) before bedtime. 60 tablet 3 11/13/2024 11/27/2024 Discontinued (Reorder) Progesterone (20 sources) Progesterone Start: 06-13-2024 End: [...] tolerance complicating ; childbirth; or the puerperium (10 sources) Gestational diabetes mellitus in childbirth, diet controlled; Translations: [Gestational diabetes mellitus in , diet controlled] Onset: 12-03-2020 Episodic Headache; including migraine (1 source) Headache; including migraine; Translations: [HEADACHE UNSPECIFIED] Onset: 12-22-2020 Hypertension complicating ; childbirth and the puerperium (4 sources) Hypertension complicating ; Translations: [Unspecified maternal [...] unspecified trimester] 10-01-2024 Episodic Other complications of (6 sources) History of pre-eclampsia; Translations: [Supervision of with other poor reproductive or obstetric history, unspecified trimester] 10-01-2024 Episodic Other and delivery including normal (17 sources) Single live ; Translations: [] Onset: [...] [32 weeks gestation of ] 11-13-2024 Episodic Residual codes; unclassified (2 sources) Gestation period, 34 weeks; Translations: [34 weeks gestation of ] 11-27-2024 Episodic Unclassified (1 source) CONTACT W/AND (SUSP) [...] Range Facility Urinalysis macro (dipstick) panel (U)on 11-27-2024 Bilirubin, UA Negative Negative - 4(70) +++ mg/dL [facility] Blood, UA Negative Negative - 50 Dario/mcL [facility] Clarity, UA Clear [facility] re Color, UA Yellow [facility] e Glucose, UA Negative Negative - 1999(110) ++++ mg/dL [facility] Interpretation and review of laboratory results Abnormal [facility] re Ketones, UA Negative Negative - 160(16) ++++ mg/dL [facility] Leukocytes, UA Positive Negative - 500+++ Oksana/mcL [facility] Comment on above: Moderate Nitrite, UA Negative Negative - Positive [facility] pH, UA 7 5 - 9 [facility] Healthcar e Protein, UA Trace Negative - 1999(20) ++++ mg/dL [facility] Spec Grav, UA 1.015 1 - 1.03 [facility] Urobilinogen, UA 0.2 0.2 - 12 mg/dL [facility] e US OB BPP W NON-STRESS on 11-25-[address] [address] Ultrasound Report Signed Patient: JANINA MARTEL MR#: [id number] : 1990 Acct:[id number] Age/Sex: 34 / F ADM Date: 11/25/24 Loc: [facility] 251-[address]: Sammie Higginbotham D.O. Ordering Physician: Sammie Higginbotham D.O. Date of Service: 11/25/24 Procedure(s): US OB BPP w non-stress Accession Number(s): [id number] cc: Sammie Higginbotham D.O.; Physician,Non-Staff [place] [address] Patient Name: JANINA MARTEL MRN: [id number] date: 1990 Sex: F Assigned Patient Location: Current Patient Location: Accession/Order Number: [id number] Exam Date: 11/25/2024 10:35 Report Date: 11/25/2024 [...] Long M.D. 11/25/2024 10:37 AM Dictation Location: [place] [address] Electronically authenticated by: [id number] Y Date: 11/25/2024 10:37 Dictated By: Madie Long M.D. Signed By: 11/25/24 1040 DD/ 1037 TD/TT: Data Control Clerk: [facility] Radiology, Radiologist, - 11/25/2024 [place] [address] Ultrasound Report Signed Patient: JANINA MARTEL MR#: [id number] : 1990 Acct:[id number] Age/Sex: 34 / F ADM Date: 11/25/24 Loc: [facility] 251-[address]: Sammie Higginbotham D.O. Ordering Physician: Sammie Higginbotham D.O. Date of Service: 11/25/24 Procedure(s): US OB BPP w non-stress Accession Number(s): [id number] cc: Sammie Higginbotham D.O.; Physician,Non-Staff [place] The [place] [address] Patient Name: JANINA MARTEL MRN: [facility]:[id number] date: 1990 Sex: F Assigned Patient Location: Current Patient Location: US Accession/Order Number: [id number] Exam Date: 11/25/2024 10:35 Report Date: 11/25/2024 [...] Long M.D. 11/25/2024 10:37 AM Dictation Location: [place] [address] Electronically authenticated by: [id number] Y Date: 11/25/2024 10:37 Dictated By: Madie Long M.D. Signed By: 11/25/24 1040 DD/ 1037 TD/TT: Data Control Clerk: [facility] Treasure Data Radiology Study observation (narrative) [facility] Treasure Data US OB BPP W NON-STRESS Ordered By: Radiologist Radiology on [facility]-25-2024 [facility] Work Phone: US OB BPP W NON-STRESS on 11-18-2024 [place] [address] Ultrasound Report Signed Patient: JANINA MARTEL MR#: [id number] : 1990 Acct:[id number] Age/Sex: 34 / F ADM Date: 11/18/24 Loc: [facility] 250- Attending Dr: Sammie Higginbotham D.O. Ordering Physician: Sammie Higginbotham D.O. Date of Service: 11/18/24 Procedure(s): US OB BPP w non-stress Accession Number(s): [id number] cc: Sammie Higginbotham D.O.; Physician,Non-Staff MKeke The [place] [id number] Patient Name: JANINA MARTEL MRN: [id number] date: 1990 Sex: F Assigned Patient Location: [facility] Current Patient Location: [facility] Accession/Order Number: [id number] Exam Date: 11/18/2024 09:24 Report Date: 11/18/2024 [...] Long M.D. 11/18/2024 9:26 AM Dictation Location: [place] [address] Electronically authenticated by: [id number] Y Date: 11/18/2024 09:26 Dictated By: Madie Long M.D. Signed By: 11/18/24927 DD/ 5 TD/TT: Data Control Clerk: [facility] Radiology, Radiologist, MD - 11/18/2024 [place] [address] Ultrasound Report Signed Patient: JANINA MARTEL MR#: [id number] : 1990 Acct:[id number] Age/Sex: 34 / F ADM Date: 11/18/24 Loc: [facility] 250-[address]: Sammie Higginbotham D.O. Ordering Physician: Sammie Higginbotham D.O. Date of Service: 11/18/24 Procedure(s): US OB BPP w non-stress Accession Number(s): [id number] cc: Sammie Higginbotham D.O.; Physician,Non-Staff Mylene The [address] [address] Patient Name: JANINA MARTEL MRN: [facility]:[id number] date: 1990 Sex: F Assigned Patient Location: [facility] Current Patient Location: [facility] Accession/Order Number: [id number] Exam Date: 11/18/2024 09:24 Report Date: 11/18/2024 [...] is in low-normal range. Total score: 8/8 US/ OB BPP w non-stress IMPRESSION: NORMAL BIOPHYSICAL PROFILE . Impression dictated by: Madie Long M.D. 11/18/2024 9:26 AM Dictation Location: [place] [address] Electronically authenticated by: [id number] Y Date: 11/18/2024 09:26 Dictated By: Madie Long M.D. Signed By: 11/18/2428 DD/ 5 TD/TT: Data Control Clerk: [facility] Treasure Data Radiology Study observation (narrative) [facility] OB BPP W NON-STRESS Ordered By: Radiologist Radiology on 11-18-2024 [facility] Work Phone: TB TOTAL PROTEIN 24 HOUR UR INEon 11-13-2024 Interpretation and review of laboratory results Abnormal [facility] registracija vozilame re Protein (U) [Mass/Vol] 10.8 mg/dL [facility] - 11.9 mg/dL [facility] TBH TOTAL PROTEIN 24 HOUR URINE 302.4 High [facility] Treasure Data TOTAL VOLUME 24 HOUR URINE 2800 mL/24hr [facility] e Urinalysis macro (dipstick) panel (U)on 11-13-2024 Bilirubin, UA Negative Negative - 4(70) +++ mg/dL [facility] Blood, UA Negative Negative - 50 Dario/mcL [facility] Clarity, UA Clear [facility] re Color, UA Yellow [facility] Glucose, UA Negative Negative - 1999(110) ++++ mg/dL [facility] Interpretation and review of laboratory results Abnormal [facility] re Ketones, UA Positive Negative - 160(16) ++++ mg/dL [facility] Comment on above: 40 Leukocytes, UA Trace Negative - 500+++ Oksana/mcL [facility] Nitrite, UA Negative Negative - Positive [facility] pH, UA 6.5 5 - 9 [facility] Protein, UA Negative Negative - 1999(20) ++++ mg/dL [facility] Spec Grav, UA 1.005 1 - 1.03 [facility] Urobilinogen, UA 0.2 0.2 - 12 mg/dL [facility] US OB BPP W NON-STRESS on 11-12-2024 [place] [address] Ultrasound Report Signed Patient: JANINA MARTEL MR#: [id number] : 1990 Acct:[id number] Age/Sex: 34 / F ADM Date: 11/12/24 Loc: [facility] 254-[address]: Sammie Higginbotham D.O. Ordering Physician: Sammie Higginbotham D.O. Date of Service: 11/12/24 Procedure(s): US OB BPP w non-stress Accession Number(s): [id number] cc: Sammie Higginbotham D.O.; Physician,Non-Staff M.Kaylee The [place] [address] Patient Name: JANINA MARTEL MRN: [facility]:[id number] date: 1990 Sex: F Assigned Patient Location: [facility] Current Patient Location: [facility] Accession/Order Number: [id number] Exam Date: 11/12/2024 12:13 Report Date: 11/12/2024 [...] Long M.D. 11/12/2024 12:14 PM Dictation Location: [place] [address] Electronically authenticated by: [id number] Y Date: 11/12/2024 12:14 Dictated By: Madie Long M.D. Signed By: 11/12/24 1217 DD/ 1214 TD/TT: Data Control Clerk: [facility] Radiology, Radiologist, MD - 11/12/2024 [place] [address] Ultrasound Report Signed Patient: JANINA MARTEL MR#: [id number] : 1990 Acct:[id number] Age/Sex: 34 / F ADM Date: 11/12/24 Loc: [facility] 254-[address]: Sammie Higginbotham D.O. Ordering Physician: Sammie Higginbotham D.O. Date of Service: 11/12/24 Procedure(s): US OB BPP w non-stress Accession Number(s): [id number] cc: Sammie Higginbotham D.O.; Physician,Non-Staff Mylene The [place] [id number] Patient Name: JANINA MARTEL MRN: [id number] date: 1990 Sex: F Assigned Patient Location: [facility] Current Patient Location: [facility] Accession/Order Number: [id number] Exam Date: 11/12/2024 12:13 Report Date: 11/12/2024 [...] Long M.D. 11/12/2024 12:14 PM Dictation Location: [place] [address] Electronically authenticated by: [id number] Y Date: 11/12/2024 12:14 Dictated By: Madie Long M.D. Signed By: 11/12/24 1217 DD/ 1214 TD/TT: Data Control Clerk: [facility] Treasure Data Radiology Study observation (narrative) [facility] US OB BPP W NON-STRESS Ordered By: Radiologist Radiology on 11-12-2024 [facility] registracija vozilacar e Work Phone: US OB FOLLOW UP [...] II, MD, PHD at 30-Oct-2024 11:19:03 PM [facility] Normal Not Available Comment on above: Order Comment: US OB SCAN FOR GROWTH Estimated Date of Delivery: 01/06/25 Gestational Age as of 10/01/2024: 26w1d Urinalysis macro (dipstick) panel (U)on 10-30-2024 Bilirubin, UA Negative Negative - 4(70) +++ mg/dL [facility] Blood, UA Negative Negative - 50 Dario/mcL [facility] Clarity, UA Clear [facility] Color, UA Yellow [facility] Glucose, UA Negative Negative - 1999(110) ++++ mg/dL [facility] Interpretation and review of laboratory results Abnormal [facility] Ketones, UA Negative Negative - 160(16) ++++ mg/dL [facility] Leukocytes, UA Positive Negative - 500+++ Oksana/mcL [facility] Comment on above: small Nitrite, UA Negative Negative - Positive [facility] pH, UA 7 5 - 9 [facility] Protein, UA Negative Negative - 1999(20) ++++ mg/dL [facility] Spec Grav, UA 1.01 1 - 1.03 [facility] Urobilinogen, UA 0.2 0.2 - 12 mg/dL [facility] Urinalysis macro (dipstick) panel (U)on 09-02-2024 Bilirubin, UA Negative Negative - 4(70) +++ mg/dL [facility] Blood, UA Negative Negative - 50 Dario/mcL [facility] Clarity, UA Clear [facility] registracija vozilaca re Color, UA Yellow [facility] registracija vozilacar e Glucose, UA Negative Negative - 1999(110) ++++ mg/dL [facility] Interpretation and review of laboratory results Abnormal [facility] registracija vozilaca re Ketones, UA Negative Negative - 160(16) ++++ mg/dL [facility] Leukocytes, UA Positive Negative - 500+++ Oksana/mcL [facility] Comment on above: Large Nitrite, UA Negative Negative - Positive [facility] pH, UA 7 5 - 9 [facility] [employer] e Protein, UA Negative Negative - 1999(20) ++++ mg/dL [facility] Spec Grav, UA 1.01 1 - 1.03 [facility] Urobilinogen, UA 0.2 0.2 - 12 mg/dL [facility] Health[facility] e US OB 14+ WEEKS [...] II, MD, PHD at 22-Aug-2024 08:46:17 AM [facility] Normal Not Available Comment on above: Order Comment: US OB ANATOMY SINGLE W US OB CERVICAL LENGTH Estimated Date of Delivery: 01/06/25 Gestational Age as of 08/05/2024: 18w0d IGP,APTIMA HPV,AGE GDLNon AGE GDLN ACOG TESTING Note . [facility] Comment on above: TESTS RESULT FLAG UN ITS REF RANGE LAB Clinician Provided Cytology Information Source.............Cervix Other.............. No. of containers..01 ThinPrep Vial Age Algo ACOG Maria Antonia... 30-65 01 FLAG LEGEND: L-Low Normal,H-High Normal,LL-Alert Low,HH-Alert High <-Panic Low,>-Panic High,A-Abnormal,AA-Critical Abnormal Performed at: 01 =[address] [address] Asha Garza MD, HPV APTIMA Negative Negative [facility] Comment on above: This nucleic acid am plification test detects fourteen high- risk HPV types (16,18,31,33,35,39,45,51,52,56,58,59,66,68) without differentiation. Performed at: = - [facility] [id number] Health Services Information Specialist: Asha Garza MD, Phone: [phone] Performed at: [address] [id number] Health Services Information Specialist: Asha Garza MD, Phone: [phone] IGP, APTIMA HPV, RFX 16/18,45 Note . [facility] Comment on above: TESTS RESULT FLAG UN ITS REF RANGE LAB DIAGNOSIS: 02 NEGATIVE FOR INTRAEPITHELIAL LESION OR MALIGNANCY. Specimen adequacy: 02 Satisfactory for evaluation. Endocervical and/or squamous metaplastic cells (endocervical component) are present. Performed by: 02 Jojo Pablo, Portrait Photographer (ASCP) . 02 Note: Note 02 The [...] <-Panic Low,>-Panic High,A-Abnormal,AA-Critical Abnormal Performed at: [address] [address] Asha Garza MD, SPATULA-ALONE CERVIX [facility] Healthcar e RECURRENT VAGINITIS (HTRX)on 08-07-2024 ATOPOBIUM VAGINAE 0 [facility] ATOPOBIUM VAGINAE Not detected [facility] BVAB 2,3 (BACTERIAL VAGINOSIS ASSOCIATED BACTERIA 2, 3); MOBILUNCUS SPP 0 [facility] BVAB 2,3 (BACTERIAL VAGINOSIS ASSOCIATED BACTERIA 2, 3); MOBILUNCUS SPP Not detected [facility] Healthcare ELODIA ALBICANS, PARAPSILOSIS, TROPICALIS 0 [facility] ELODIA ALBICANS, PARAPSILOSIS, TROPICALIS Not detected [facility] Healthcare [place] GLABRATA 0 [facility] [place] GLABRATA Not detected [facility] ealthcare [place] KRUSEI 0 [facility] ELODIA KRUSEI Not detected [facility] CHLAMYDIA TRACHOMATIS 0 [facility] Healthcare CHLAMYDIA TRACHOMATIS Not detected [facility] Healthcare GARDNERELLA VAGINALIS 0 [facility] Healthcare GARDNERELLA VAGINALIS Not detected [facility] Healthcare MEGASPHAERA (TYPES 1, 2) 0 [facility] Healthcare MEGASPHAERA (TYPES 1, 2) Not detected [facility] Healthcare MYCOPLASMA GENITALIUM 0 [facility] Healthcare MYCOPLASMA GENITALIUM Not detected [facility] NEISSERIA GONORRHOEAE 0 [facility] NEISSERIA GONORRHOEAE Not detected [facility] Healthcare TRICHOMONAS VAGINALIS 0 [facility] TRICHOMONAS VAGINALIS Not detected [facility] GLUCOSE TOLERANCE 3 HOURon 0 08-03-2024 GLUCOSE TOLERANCE 3 HOUR mg/dL [facility] Comment on above: GLU FAST 94 (<95) C ol: 08/03/24 0809 GLU 1HR 163 (<180) Col: 08/03/24 0912 GLU 2HR 114 (<155) Col: 08/03/24 1012 GLU 3HR 109 (<140) Col: 08/03/24 1112 [facility] Healthcar e GLUCOSE 1 HOURon 07-27-2024 Glucose [Mass/Vol] 151 mg/dL High NINF - 13 0 mg/dL [facility] Interpretation and review of laboratory results Abnormal [facility] Healthcar e ALL CBC WITH AUTO DIFFon BASOPHILS ABSOLUTE AUTO 0 [facility] Basophils/100 WBC (Bld) 0.3 % 0.2 - 2.0 % [facility] Eosinophils/100 WBC (Bld) 0.2 % Low 0.9 - 7.0 % [facility] Erythrocyte distribution width (RBC) [Ratio] 13.5 % 11.0 - 15.0 % [facility] Hematocrit (Bld) [Volume fraction] 36 % 36.0 - 48.0 % [facility] Hemoglobin (Bld) [Mass/Vol] 12.5 g/dL 12.0 - 16.0 g/dL [facility] IMMATURE GRANULOCYTES ABS AUTO 0.05 High [facility] Immature granulocytes/100 WBC (Bld) 0.4 % 0.0 - 0.5 % [facility] Interpretation and review of laboratory results Abnormal [facility] re LYMPHOCYTES ABSOLUTE AUTO 2.1 [facility] Lymphocytes/100 WBC (Bld) 16 % Low 20.5 - 60.0 % [facility] MCH (RBC) [Entitic mass] 30.1 pg 26.7 - 34.0 pg [facility] MCHC (RBC) [Mass/Vol] 34.7 g/dL 29.9 - 35.2 g/dL [facility] MCV (RBC) [Entitic vol] 86.7 fL 81.0 - 99.0 fL [facility] MONOCYTES ABSOLUTE AUTO 0.9 High [facility] Monocytes/100 WBC (Bld) 6.6 % 1.7 - 12.0 % [facility] NEUTROPHILS ABSOLUTE AUTO 9.9 High [facility] Neutrophils/100 WBC (Bld) 76.5 % High 43.0 - 75.0 % [facility] Platelet mean volume (Bld) [Entitic vol] 10.7 fL 9.5 - 13.5 fL [facility] EO # 0 [facility] PLT 276 [facility] RBC 4.15 Low [facility] WBC 12.9 High [facility] HCG ( test) Ql (U)o n 06-07-2024 Interpretation and review of laboratory results Abnormal [facility] Preg Test, Ur Positive Negative [facility] US OB TRANSVAGINALon 025 US [...] x 4.7 cm (8 weeks, 3 days). Whitaker rump length is 2.5 cm (9 weeks, [...] UA Negative Negative - 4(70) +++ mg/dL [facility] Blood, UA Negative Negative - 50 Dario/mcL [facility] Clarity, UA Clear [facility] Healthca re Color, UA Yellow [facility] Healthcar e Glucose, UA Negative Negative - 1999(110) ++++ mg/dL [facility] Interpretation and review of laboratory results Normal [facility] re Ketones, UA Negative Negative - 160(16) ++++ mg/dL [facility] Leukocytes, UA Negative Negative - 500+++ Oksana/mcL [facility] Nitrite, UA Negative Negative - Positive [facility] pH, UA 5.5 5 - 9 [facility] Protein, UA Negative Negative - 1999(20) ++++ mg/dL [facility] Spec Grav, UA 1.015 1 - 1.03 [facility] Urobilinogen, UA 0.2 0.2 - 12 mg/dL [facility] Health[facility] e TBH PREG QUANT HCGon 04-05- 024 HCG QUANTITATIVE <1 mIU/mL [facility] Comment on above: 5-50 0.2-1 WEEK 50-500 1-2 WEEKS 100-5,000 2-3 WEEKS 500-10,000 3-4 WEEKS 1,000-50,000 4-5 WEEKS 10,000-100,000 5-6 WEEKS 15,000-200,000 6-8 WEEKS 10,000-100,000 2-3 MONTHS [facility] TBH PREG QUANT HCGon 03-29- 024 HCG QUANTITATIVE 15 mIU/mL [facility] Comment on above: 5-50 0.2-1 WEEK 50-500 1-2 WEEKS 100-5,000 2-3 WEEKS 500-10,000 3-4 WEEKS 1,000-50,000 4-5 WEEKS 10,000-100,000 5-6 WEEKS 15,000-200,000 6-8 WEEKS 10,000-100,000 2-3 MONTHS [facility] TBH PREG QUANT HCGon 03-25- 024 HCG QUANTITATIVE 22 mIU/mL [facility] ltare Comment on above: 5-50 0.2-1 WEEK 50-500 1-2 WEEKS 100-5,000 2-3 WEEKS 500-10,000 3-4 WEEKS 1,000-50,000 4-5 WEEKS 10,000-100,000 5-6 WEEKS 15,000-200,000 6-8 WEEKS 10,000-100,000 2-3 MONTHS [facility] TBH PREG QUANT HCGon 024 HCG QUANTITATIVE 32 mIU/mL [facility] lthcare Comment on above: 5-50 0.2-1 WEEK 50-500 1-2 WEEKS 100-5,000 2-3 WEEKS 500-10,000 3-4 WEEKS 1,000-50,000 4-5 WEEKS 10,000-100,000 5-6 WEEKS 15,000-200,000 6-8 WEEKS 10,000-100,000 2-3 [facility] PAP ACOG PANEL 2: 21 to 29on 09-22-2021 . . Normal [facility] Comment on above: Performed By: #### [id number] #### [facility] [address] [place] [address] Dr. Yariel Huynh Age Gdln ACOG Testing - [facility] Comment on above: Performed By: #### [id number] #### [facility] [address] [place] [address] [address] Yariel Huynh DIAGNOSIS: Comment [facility] Comment on above: Result Comment: NEGA TIVE FOR INTRAEPITHELIAL LESION OR MALIGNANCY. Performed By: #### [id number] #### [facility] [address] [place] [address] [address] Yariel Huynh Methodology: Comment [facility] Comment on above: Result Comment: This liquid based ThinPrep(R) pap test was screened with the use of an image guided system. Performed By: #### [id number] #### [facility] [address] [place] [address] Dr. Yariel Huynh Note: Comment [facility] Comment on above: Result Comment: The Pap smear is a screening test designed to aid in the detection of premalignant and malignant conditions of the uterine cervix. It is not a diagnostic procedure and should not be used as the sole means of detecting cervical cancer. Both false-positive and false-negative reports do occur. . Performed By: #### [id number] #### [facility] [address] [place] [address] Dr. Yariel Huynh Performed by: Comment Normal [facility] Comment on above: Result Comment: Carole Lee Portrait Photographer (ASCP) Performed By: #### 4 [id number] #### [facility] [address] [place] [address] Dr. Yariel Huynh Reflex Criteria: Comment Normal [facility] Comment on above: Result Comment: The HPV DNA reflex criteria were not met with this specimen result therefore, no HPV testing was performed. . Performed By: #### 4 [id number] #### [facility] [address] [place] [address] Dr. Yariel Huynh Specimen adequacy: Comment Normal [facility] Comment on above: Result Comment: Sati sfactory for evaluation. Endocervical and/or squamous metaplastic cells (endocervical component) are present. Performed By: #### 4 [id number] #### [facility] [address] [place] [address] Dr. Yariel Huynh RUBELLA AB IGGon 12-10-2020 Rubella Antibodies, IgG 1.46 index Normal Immune >0.99 [facility] Comment on above: Result Comment: Non- immune <0.90 Equivocal 0.90 - 0.99 Immune >0.99 Performed By: #### R UBIGG #### [facility] [address] [place] [address] Clyde Ramachandran CBC AUTO DIFFon 12-09-2020 BASO # 0.1 103/ul Normal 0.0-0.1 [facility] Comment on above: Performed By: #### 4 [id number] #### [facility] [address] [place] [address] Dr. Yariel Huynh Basophils/100 WBC (Bld) 0.3 % Normal 0.2-2.0 [facility] Comment on above: Performed By: #### 4 [id number] #### [facility] [address] [place] [address] Dr. Yariel Huynh EO # 0.0 103/ul Normal 0.0-0.7 [facility] Comment on above: Performed By: #### 4 [id number] #### [facility] [address] [place] [address] Dr. Yariel Huynh Eosinophils/100 WBC (Bld) 0.1 % Critically low 0.9-7.0 [facility] Comment on above: Performed By: #### 4 [id number] #### [facility] [address] [place] [address] Dr. Yariel Huynh Erythrocyte distribution width (RBC) [Ratio] 13.9 % Normal 11.0-15.0 [facility] Comment on above: Performed By: #### 4 [id number] #### [facility] [address] [place] [address] Dr. Yariel Huynh Hematocrit (Bld) [Volume fraction] 29.5 % Critically low 36.0-48.0 [facility] Comment on above: Performed By: #### 4 [id number] #### [facility] [address] [place] [address] Dr. Yariel Huynh Hemoglobin (Bld) [Mass/Vol] 9.3 g/dL Critically low 12.0-16.0 [facility] Comment on above: Performed By: #### 4 [id number] #### [facility] [address] [place] [address] Dr. Yariel Huynh IG # 0.08 10e3/ul Critically high 0.00-0.03 [facility] Comment on above: Performed By: #### 4 [id number] #### [facility] [address] [place] [address] Dr. Yariel Huynh IG % 0.5 % Normal 0.0-0.5 [facility] Comment on above: Performed By: #### 4 [id number] #### [facility] [address] [place] [address] Dr. Yariel Huynh LYMPH # 1.7 103/ul Normal 1.2-3.8 [facility] Comment on above: Performed By: #### 4 [id number] #### [facility] [address] [place] [address] Dr. Yariel Huynh Lymphocytes/100 WBC (Bld) 10.8 % Critically low 20.5-60.0 [facility] Comment on above: Performed By: #### 4 [id number] #### [facility] [address] [place] [address] Dr. Yariel Huynh MANUAL DIFF REQ NO Normal [facility] Comment on above: Performed By: #### 4 [id number] #### [facility] [address] [place] [address] Dr. Yariel Huynh MCH (RBC) [Entitic mass] 26.2 pg Critically low 26.7-34.0 [facility] Comment on above: Performed By: #### 4 [id number] #### [facility] [address] [place] [address] Dr. Yariel Huynh MCHC (RBC) [Mass/Vol] 31.5 g/dL Normal 29.9-35.2 [facility] Comment on above: Performed By: #### 4 [id number] #### [facility] [address] [place] [address] Dr. Yariel Huynh MCV (RBC) [Entitic vol] 83.1 fL Normal 81.0-99.0 [facility] Comment on above: Performed By: #### 4 [id number] #### [facility] [address] [place] [address] Dr. Yariel Huynh MONO # 0.8 103/ul Normal 0.3-0.8 [facility] Comment on above: Performed By: #### 4 [id number] #### [facility] [address] [place] [address] Dr. Yariel Huynh Monocytes/100 WBC (Bld) 5.2 % Normal 1.7-12.0 [facility] Comment on above: Performed By: #### 4 [id number] #### [facility] [address] [place] [address] Dr. Yariel Huynh NEUT # 12.8 103/ul Critically high 1.4-6.5 [facility] Comment on above: Performed By: #### 4 [id number] #### [facility] [address] [place] [address] Dr. Yariel Huynh Neutrophils/100 WBC (Bld) 83.1 % Critically high 43.0-75.0 [facility] Comment on above: Performed By: #### 4 [id number] #### [facility] [address] [place] [address] Dr. Yariel Huynh Platelet mean volume (Bld) [Entitic vol] 12.6 fL Normal 9.5-13.5 [facility] Comment on above: Performed By: #### 4 [id number] #### [facility] [address] [place] [address] Dr. Yariel Huynh PLT 203 103/ul Normal 150-450 [facility] Comment on above: Performed By: #### 4 [id number] #### [facility] [address] [place] [address] Dr. Yariel Huynh RBC 3.55 106/ul Critically low 4.20-5.40 [facility] Comment on above: Performed By: #### 4 [id number] #### [facility] [address] [place] [address] Dr. Yariel Huynh WBC 15.4 103/ul Critically high 4.0-11.0 [facility] Comment on above: Performed By: #### 4 [id number] #### [facility] [address] [place] [address] Dr. Yariel Huynh ASYMPTOMATIC COVID-19 ANTIGE Non 12-08-2020 EUA Statement SEE BELOW Normal [facility] Comment on above: Result Comment: This test [...] is revoked sooner. Performed By: #### 4 [id number] #### [facility] [address] [place] [address] Dr. Yariel Huynh SARS-CoV-2 (COVID-19) RNA ESTEBAN+probe Ql (Unsp spec) Negative Normal NEGATIVE [facility] Comment on above: Result Comment: Nega tive results are presumptive. They do not preclude infection and should not be used as the sole basis for treatment decisions. Additional confirmatory testing by a molecular method should be considered. Performed By: #### 4 [id number] #### [facility] [address] [place] [address] Dr. Yariel Huynh BUNon 12-08-2020 Urea nitrogen [Mass/Vol] 15.0 mg/dL Normal 7.0-17.0 [facility] Comment on above: Performed By: #### 4 [id number] #### [facility] [address] [place] [address] Dr. Yariel Huynh CBC AUTO DIFFon 12-08-2020 BASO # 0.0 103/ul Normal 0.0-0.1 [facility] Comment on above: Performed By: #### 4 [id number] #### [facility] [address] [place] [address] Dr. Yariel Huynh Basophils/100 WBC (Bld) 0.3 % Normal 0.2-2.0 [facility] Comment on above: Performed By: #### 4 [id number] #### [facility] [address] [place] [address] Dr. Yariel Huynh EO # 0.0 103/ul Normal 0.0-0.7 [facility] Comment on above: Performed By: #### 4 [id number] #### [facility] [address] [place] [address] Dr. Yariel Huynh Eosinophils/100 WBC (Bld) 0.4 % Critically low 0.9-7.0 [facility] Comment on above: Performed By: #### 4 [id number] #### [facility] [address] [place] [address] Dr. Yariel Huynh Erythrocyte distribution width (RBC) [Ratio] 13.8 % Normal 11.0-15.0 [facility] Comment on above: Performed By: #### 4 [id number] #### [facility] [address] [place] [address] Dr. Yariel Huynh Hematocrit (Bld) [Volume fraction] 31.8 % Critically low 36.0-48.0 [facility] Comment on above: Performed By: #### 4 [id number] #### [facility] [address] [place] [address] Dr. Yariel Huynh Hemoglobin (Bld) [Mass/Vol] 10.1 g/dL Critically low 12.0-16.0 [facility] Comment on above: Performed By: #### 4 [id number] #### [facility] [address] [place] [address] Dr. Yariel Huynh IG # 0.07 10e3/ul Critically high 0.00-0.03 [facility] Comment on above: Performed By: #### 4 [id number] #### [facility] [address] [place] [address] Dr. Yariel Huynh IG % 0.7 % Critically high 0.0-0.5 [facility] Comment on above: Performed By: #### 4 [id number] #### [facility] [address] [place] [address] Dr. Yariel Huynh LYMPH # 2.3 103/ul Normal 1.2-3.8 [facility] Comment on above: Performed By: #### 4 [id number] #### [facility] [address] [place] [address] Dr. Yariel Huynh Lymphocytes/100 WBC (Bld) 22.7 % Normal 20.5-60.0 [facility] Comment on above: Performed By: #### 4 [id number] #### [facility] [address] [place] [address] Dr. Yariel Huynh MANUAL DIFF REQ NO Normal [facility] Comment on above: Performed By: #### 4 [id number] #### [facility] [address] [place] [address] Dr. Yariel Huynh MCH (RBC) [Entitic mass] 26.7 pg Normal 26.7-34.0 [facility] Comment on above: Performed By: #### 4 [id number] #### [facility] [address] [place] [address] Dr. Yariel Huynh MCHC (RBC) [Mass/Vol] 31.8 g/dL Normal 29.9-35.2 [facility] Comment on above: Performed By: #### 4 [id number] #### [facility] [address] [place] [address] Dr. Yariel Huynh MCV (RBC) [Entitic vol] 84.1 fL Normal 81.0-99.0 [facility] Comment on above: Performed By: #### 4 [id number] #### [facility] [address] [place] [address] Dr. Yariel Huynh MONO # 0.6 103/ul Normal 0.3-0.8 [facility] Comment on above: Performed By: #### 4 [id number] #### [facility] [address] [place] [address] Dr. Yariel Huynh Monocytes/100 WBC (Bld) 6.3 % Normal 1.7-12.0 [facility] Comment on above: Performed By: #### 4 [id number] #### [facility] [address] [place] [address] Dr. Yariel Huynh NEUT # 7.0 103/ul Critically high 1.4-6.5 [facility] Comment on above: Performed By: #### 4 [id number] #### [facility] [address] [place] [address] Dr. Yariel Huynh Neutrophils/100 WBC (Bld) 69.6 % Normal 43.0-75.0 [facility] Comment on above: Performed By: #### 4 [id number] #### [facility] [address] [place] [address] Dr. Yariel Huynh Platelet mean volume (Bld) [Entitic vol] 12.9 fL Normal 9.5-13.5 [facility] Comment on above: Performed By: #### 4 [id number] #### [facility] [address] [place] [address] Dr. Yariel Huynh PLT 193 103/ul Normal 150-450 [facility] Comment on above: Performed By: #### 4 [id number] #### [facility] [address] [place] [address] Dr. Yariel Huynh RBC 3.78 106/ul Critically low 4.20-5.40 [facility] Comment on above: Performed By: #### 4 [id number] #### [facility] [address] [place] [address] Dr. Yariel Huynh WBC 10.1 103/ul Normal 4.0-11.0 [facility] Comment on above: Performed By: #### 4 [id number] #### [facility] [address] [place] [address] Dr. Yariel Huynh CREATININEon 12-08-2020 Creatinine [Mass/Vol] 0.80 mg/dL Normal 0.52-1.04 [facility] Comment on above: Performed By: #### L DH, URIC, AST, ALT, BUN, CREA #### [facility] [address] [place] [address] Clydejustyn Ramachandran EGFR-AF [place] >60 Normal >=60 [facility] Comment on above: Performed By: #### L DH, URIC, AST, ALT, BUN, CREA #### [facility] [address] [place] [address] Clyde Madie EGFR-NON AF [place] >60 Normal >=60 [facility] Comment on above: Performed By: #### L DH, URIC, AST, ALT, BUN, CREA #### [facility] [address] [place] [address] Clyde Ramachandran DRUG SCREEN RAPID (URINE)on 12-08-2020 AMP Negative Normal NEGATIVE [facility] Comment on above: Performed By: #### 4 [id number] #### [facility] [address] [place] [address] Dr. Yariel Huynh BAR Negative Normal NEGATIVE [facility] Comment on above: Performed By: #### 4 [id number] #### [facility] [address] [place] [address] Dr. Yariel Huynh BUP Negative Normal NEGATIVE [facility] Comment on above: Performed By: #### 4 [id number] #### [facility] [address] [place] [address] Dr. Yariel Huynh BZO Negative Normal NEGATIVE [facility] Comment on above: Performed By: #### 4 [id number] #### [facility] [address] [place] [address] Dr. Yariel Huynh ROSA Negative Normal NEGATIVE [facility] Comment on above: Performed By: #### 4 [id number] #### [facility] [address] [place] [address] Dr. Yariel Huynh CUT-OFFS SEE BELOW Normal [facility] Comment on above: Result Comment: AMP (Amphetamine): 500ng/mL, BAR (Barbituates): 200 ng/mL, BZO (Benzodiazepines): 150 ng/mL, BUP (Buprenorphine): 10 ng/mL, ROSA (Cocaine): 150 ng/mL, mAMP (Methamphetamine): 500 ng/mL, MTD (Methadone): 200 ng/mL, OPI (Opiates): 100 ng/mL, OXY (Oxycodone): 100 ng/mL, PCP (Phencyclidine): 25 ng/mL, PPX (Propoxyphene): 300 ng/mL, THC (Cannabinoids): 50 ng/mL, TCA (Trycyclic Antidepressants): 300 ng/mL Performed By: #### 4 [id number] #### [facility] [address] [place] [address] Dr. Yariel Huynh DRUG CUT HEADER DRUG CLASS TEST SYSTEM CUT-OFF CONCENTRATIONS ARE FOLLOWS: Normal [facility] Comment on above: Performed By: #### 4 [id number] #### [facility] [address] [place] [address] Dr. Yariel Huynh mAMP Negative Normal NEGATIVE [facility] Comment on above: Performed By: #### 4 [id number] #### [facility] [address] [place] [address] Dr. Yariel Huynh MTD Negative Normal NEGATIVE [facility] Comment on above: Performed By: #### 4 [id number] #### [facility] [address] [place] [address] Dr. Yariel Huynh OPI Negative Normal NEGATIVE [facility] Comment on above: Performed By: #### 4 [id number] #### [facility] [address] [place] [address] Dr. Yariel Huynh OXY Negative Normal NEGATIVE [facility] Comment on above: Performed By: #### 4 [id number] #### [facility] [address] [place] [address] Dr. Yariel Huynh PCP Negative Normal NEGATIVE [facility] Comment on above: Performed By: #### 4 [id number] #### [facility] [address] [place] [address] Dr. Yariel Huynh PPX Negative Normal NEGATIVE [facility] Comment on above: Performed By: #### 4 [id number] #### [facility] [address] [place] [address] Dr. Yairel Huynh TCA Negative Normal NEGATIVE [facility] Comment on above: Performed By: #### 4 [id number] #### [facility] [address] [place] [address] Dr. Yariel Huynh THC Negative Normal NEGATIVE [facility] Comment on above: Performed By: #### 4 [id number] #### [facility] [address] [place] [address] Dr. Yariel Huynh LDHon 12-08-2020 LDH 163 U/L Normal 122-222 [facility] Comment on above: Performed By: #### L DH, URIC, AST, ALT, BUN, CREA #### [facility] [address] [place] [address] Clydejustyn Delgadillomitchell Arango 12-08-2020 AST [Catalytic activity/Vol] 15 U/L Normal 14-36 [facility] Comment on above: Performed By: #### L DH, URIC, AST, ALT, BUN, CREA #### [facility] [address] [place], [place] [address] Clyde Ramachandran SGPTon 12-08-2020 ALT [Catalytic activity/Vol] 12 U/L Normal 9-52 [facility] Comment on above: Performed By: #### L DH, URIC, AST, ALT, BUN, CREA #### [facility] [address] [place], [place] [address] Clyde Ramachandran TYPE AND SCREENon 12-08-2020 TYPE AND SCREEN Negative Normal [facility] Comment on above: Performed By: #### T NS #### [facility] [address] [place], [place] [address] Clyde Ramachandran URIC ACID SERUMon 12-08-2020 Urate [Mass/Vol] 5.0 mg/dL Normal 2.5-6.2 [facility] Comment on above: Performed By: #### L DH, URIC, AST, ALT, BUN, CREA #### [facility] [address] [place], [place] [address] Clyde Ramachandran US PREG BIOPHY W NON [...] POLLO PABLO Date: 2020-12-08 08:45 Normal [facility] US PREG BIOPHY W NON [...] by: SCOTT CORTES Date: 2020-12-01 10:52 Normal [facility] Vital Signs Date Time Vital Sign Value Performing Clinician Roxann torres 11-27-2024 11:41-0400 Body weight 78.47 kg Sammie Neftaly DO Work Phone: [facility] 11-27-2024 11:41-0400 Diastolic blood pressure 86 mm[Hg] Sammie Neftaly DO Work Phone: [facility] 11-27-2024 11:41-0400 Systolic blood pressure 140 mm[Hg] Sammie Neftaly DO Work Phone: [facility] 11-13-2024 10:28-0400 Body weight 78.65 kg Diya GEE Work Phone: [facility] 11-13-2024 10:28-0400 Diastolic blood pressure 78 mm[Hg] Diya GEE Work Phone: [facility] 11-13-2024 10:28-0400 Systolic blood pressure 130 mm[Hg] Diya GEE Work Phone: [facility] 10-30-2024 10:31-0400 Body weight 78.53 kg Sammie Neftaly DO Work Phone: [facility] 10-30-2024 10:31-0400 Diastolic blood pressure 78 mm[Hg] Sammie Neftaly DO Work Phone: [facility] 10-30-2024 10:31-0400 Systolic blood pressure 120 mm[Hg] Sammie Neftaly DO Work Phone: [facility] 10-01-2024 09:38-0400 Body weight 75.48 kg Lin Sellers NP Work Phone: [facility] 10-01-2024 09:38-0400 Diastolic blood pressure 76 mm[Hg] Lin Sellers [employer] Work Phone: [facility] 10-01-2024 09:38-0400 Systolic blood pressure 120 mm[Hg] Lin Verito [employer] Work Phone: [facility] 09-02-2024 09:46-0400 Body weight 71.85 kg Sammie Neftaly DO Work Phone: [facility] 09-02-2024 09:46-0400 Diastolic blood pressure 82 mm[Hg] Sammie Neftaly DO Work Phone: [facility] 09-02-2024 09:46-0400 Systolic blood pressure 122 mm[Hg] Sammie Neftaly DO Work Phone: [facility] 08-05-2024 09:52-0500 Body weight 68.49 kg Diya GEE Work Phone: [facility] 08-05-2024 09:52-0500 Diastolic blood pressure 78 mm[Hg] Diya GEE Work Phone: [facility] 08-05-2024 09:52-0500 Systolic blood pressure 124 mm[Hg] Diya GEE Work Phone: [facility] 07-08-2024 09:52-0500 Body weight 67.31 kg Sammie Neftaly DO Work Phone: [facility] 07-08-2024 09:52-0500 Diastolic blood pressure 70 mm[Hg] Sammie Neftaly DO Work Phone: [facility] 07-08-2024 09:52-0500 Systolic blood pressure 118 mm[Hg] Sammie Neftaly DO Work Phone: [facility] 06-07-2024 09:47-0500 Body weight 66.22 kg Noms Nurse [facility] 06-07-2024 09:47-0500 Diastolic blood pressure 72 mm[Hg] Noms Nurse [facility] 06-07-2024 09:47-0500 Systolic blood pressure 122 mm[Hg] Noms Nurse [facility] Healthcare Encounters Encounter Date Encounter Type Care Provider Facility Start: 11-27-2024 End: 11-27-2024 Bamboo flowsheet Sammie Neftaly DO Work Phone: [facility] Start: 11-27-2024 End: 11-27-2024 Bamboo flowsheet Sammie Neftaly DO Work Phone: [facility] Start: 11-27-2024 End: 11-27-2024 Office outpatient visit 15 minutes Sammie Neftaly DO Work Phone: [facility] Comment on above: Third trimester preg champ ([facility]); 34 weeks gestation of ([facility]); Hypertension affecting in third trimester ([facility]); Gestational diabetes mellitus (GDM), antepartum, gestational diabetes method of control unspecified ([facility]); H/O pre-eclampsia in prior , currently ([facility]) Start: 11-25-2024 End: 11-25-2024 Clinisync Result Encounter Sammie Neftaly DO Work Phone: [facility] External Department Unsolicited Start: 11-25-2024 End: 11-25-2024 Clinisync Result Encounter Sammie Neftaly DO Work [...] 11-13-2024 Bamboo flowsheet Diya GEE Work Phone: [facility] Start: 11-13-2024 End: 11-13-2024 Clinisync [...] Result Encounter Sammie Neftaly DO Work Phone: [facility] External Department Unsolicited Start: 11-12-2024 End: 11-12-2024 Clinisync Result Encounter Sammie Neftaly DO Work Phone: [facility] External Department Unsolicited Start: 10-30-2024 End: 10-30-2024 [...] 10-01-2024 End: 10-01-2024 Bamboo flowsheet Lin Sellers [employer] Work Phone: [facility] Start: 10-01-2024 End: 10-01-2024 Bamboo flowsheet Lin Sellers [employer] Work Phone: [facility] Start: 10-01-2024 End: 10-01-2024 Office outpatient visit 15 minutes Lin Sellers [employer] Work Phone: [facility] Comment on above: Second trimester pre gnancy; size inconsistent with dates; H/O pre-eclampsia in prior , currently Start: 10-01-2024 End: 10-01-2024 ambulatory LIN VERITO Not Available Start: 09-02-2024 End: 03-31-2025 Bamboo flowsheet Sammie Neftaly DO Work Phone: [facility] Start: 09-02-2024 End: 09-02-2024 Bamboo flowsheet Sammie Neftaly DO Work Phone: [facility] Start: 09-02-2024 End: 09-02-2024 Office outpatient visit 15 minutes Sammie Neftaly DO Work Phone: [facility] Comment on above: Second trimester pre gnancy; 22 weeks gestation of ; Diabetes mellitus screening Start: 09-02-2024 End: 09-02-2024 ambulatory SAMMIE NEFTALY Not Available Start: 08-21-2024 End: 08-21-2024 ambulatory SAMMIE NEFTALY Not Available Start: 08-05-2024 End: 08-05-2024 Bamboo flowsheet Diya GEE Work Phone: [facility] Start: 08-05-2024 End: 08-08-2024 Bamboo flowsheet Diay GEE Work Phone: [facility] Start: 08-05-2024 End: 08-08-2024 Clinisync Result Encounter Diya GEE Work Phone: [facility] External Department Unsolicited Start: 08-05-2024 End: 08-07-2024 External Result Encounter Diya GEE Work Phone: [facility] External Department Unsolicited Start: 08-05-2024 End: 08-05-2024 Office outpatient visit 15 minutes Diya GEE Work Phone: [facility] Comment on above: Well woman exam with routine gynecological exam; Exposure to STD; Second trimester ; 18 weeks gestation of ; Need for maternal serum alpha-protein (MSAFP) screening; Screening, , for anatomic survey Start: 08-05-2024 End: 08-05-2024 Patient encounter procedure Diya GEE Work Phone: [facility] Healthcare Start: 08-05-2024 End: 08-05-2024 ambulatory DIYA [...] Date Procedure Procedure Detail Performing Clinician Start: 11-27-2024 Urnls dip stick/tabl et rgnt non-auto w/o micrscp Sammie Neftaly DO Work Phone: Start: 11-25-2024 US OB BPP W NON-STRESS Sammie Neftaly DO Work Phone: Start: 11-18-2024 US OB BPP W NON-STRESS Sammie Neftaly [...] Screening for malign ant neoplasm of cervix [facility] Start: 03-15-2028 Screening for malign ant neoplasm of cervix [facility] Start: 02-03-2025 Influenza vaccination Influenz a Vaccine (Season Ended) [facility] Start: 12-11-2024 End: 12-11-2024 Patient encounter procedure 12/11/2024 11:20 AM EDT Routine [facility] [address] [place] [address] Sammie Higginbotham, DO [address] [place] [address] [facility] Start: 11-27-2024 End: 11-27-2024 Patient encounter procedure [facility] Comment on above: Arrived Start: 11-13-2024 End: 11-13-2024 Patient encounter procedure [...] prior , currently Expected: 10/01/2024, Expires: 01/31/2025 [facility] Work Phone: Comment on above: Expected: 10/01/2024 , Expires: 01/31/2025 Start: 10-01-2024 End: 10-01-2024 Patient encounter procedure [facility] Comment on above: Arrived Start: 09-02-2024 End: 09-02-2025 CBC panel - Blood by Automated count CBC Lab Routine Diabetes mellitus screening Expected: 09/02/2024 (Approximate), Expires: 09/02/2025 [facility] Work Phone: Comment on above: Expected: 09/02/2024 (Approximate), Expires: 09/02/2025 Start: 09-02-2024 End: 09-02-2025 Measurement of glucose 1 hour after glucose challenge for glucose tolerance test Glucose tolerance, 1 hour Lab Routine Diabetes mellitus screening Expected: 09/02/2024 (Approximate), Expires: 09/02/2025 [facility] Comment on above: Expected: 09/02/2024 (Approximate), Expires: 09/02/2025 Start: 09-02-2024 End: 09-02-2024 Patient encounter procedure [facility] Comment on above: Arrived Start: 08-21-2024 End: 08-21-2024 Professional / ancillary services management 08/21/2024 9:00 AM EDT Ancillary Procedure [facility] [address] [place] [id number] [facility] Start: 08-05-2024 End: 09-05-2024 Alpha fetoprotein, maternal Alpha fetoprotein, maternal Lab Routine Need for maternal serum alpha-protein (MSAFP) screening Expected: 08/05/2024 (Approximate), Expires: 09/05/2024 [facility] Comment on above: Expected: 08/05/2024 (Approximate), Expires: 09/05/2024 Start: 08-05-2024 End: 08-05-2025 US for US OB 14+ weeks anatomy scan Imaging Routine Screening, , for anatomic survey Expected: 08/05/2024 (Approximate), Expires: 08/05/2025 [facility] Comment on above: Expected: 08/05/2024 (Approximate), Expires: 08/05/2025 Start: 08-05-2024 End: 08-05-2024 Patient encounter procedure [facility] OB Comment on above: Arrived Start: 07-08-2024 End: 07-08-2025 Measurement of glucose 1 hour after glucose challenge for glucose tolerance test Glucose tolerance, 1 hour Lab Routine Diabetes mellitus screening Expected: 07/08/2024 (Approximate), Expires: 07/08/2025 [facility] Work Phone: Comment on above: Expected: 07/08/2024 (Approximate), Expires: 07/08/2025 Start: 07-08-2024 End: 07-08-2024 Patient encounter procedure [facility] OB Comment on above: Arrived Start: 06-07-2024 End: 06-07-2025 ABO/Rh ABO/Rh Lab Routine Missed menses , unspecified gestational age Expected: 06/07/2024 (Approximate), Expires: 06/07/2025 [facility] Comment on above: Expected: 06/07/2024 (Approximate), Expires: 06/07/2025 Start: 06-07-2024 End: 06-07-2025 Blood type and Indirect antibody screen panel - Blood Type and screen Lab Routine Missed menses , unspecified gestational age Expected: 06/07/2024 (Approximate), Expires: 06/07/2025 [facility] Work Phone: Comment on above: Expected: 06/07/2024 (Approximate), Expires: 06/07/2025 Start: 06-07-2024 End: 06-07-2025 Drugs of abuse panel - Urine by Screen method Rapid drug screen, urine Lab Routine , unspecified gestational age Encounter for supervision of normal first in first trimester Expected: 06/07/2024 (Approximate), Expires: 06/07/2025 [facility] Comment on above: Expected: 06/07/2024 (Approximate), Expires: 06/07/2025 Start: 04-19-2024 End: 04-19-2024 ambulatory 04/19/2024 10:00 AM EST Initial [facility] [address] [place] [address] [facility] Start: 04-19-2024 End: 04-19-2024 Professional / ancillary services management 04/19/2024 9:30 AM EST Ancillary Procedure [facility] OB [address] [place] [address] [facility] Start: 02-04-2024 Influenza vaccination Influenza Vacc ine (#1) [facility] Start: 2013 Screening for malign ant neoplasm of cervix Pap Smear [facility] Bacteria identified in Urine by Culture Urine culture Microbiology Routine Missed menses Ordered: 06/07/2024 [facility] Comment on above: Ordered: 06/07/2024 CBC W Auto Different ial panel - Blood CBC and differential Lab Routine Missed menses , unspecified gestational age Ordered: 06/07/2024 [facility] Comment on above: Ordered: 06/07/2024 CHLAMYDIA TRACHOMATI S (GENITO/STI) CHLAMYDIA TRACHOMATIS (GENITO/STI) Lab Routine Exposure to STD Ordered: 08/05/2024 [facility] Comment on above: Ordered: 08/05/2024 Cytology Cervical or vaginal smear or scraping study Pap Smear Pathology and Cytology Routine Well woman exam with routine gynecological exam Ordered: 08/05/2024 [facility] Comment on above: Ordered: 08/05/2024 Hemoglobin A1c/Hemoglobin.total in Blood Hemoglobin A1c Lab Routine Missed menses , unspecified gestational age Ordered: 06/07/2024 [facility] Comment on above: Ordered: 06/07/2024 Hepatitis B virus surface Ag [Presence] in Serum or Plasma by Immunoassay Hepatitis B surface antigen Lab Routine Missed menses , unspecified gestational age Ordered: 06/07/2024 [facility] Comment on above: Ordered: 06/07/2024 Hepatitis C virus Ab [Presence] in Serum or Plasma by Immunoassay Hepatitis C antibody Lab Routine Missed menses , unspecified gestational age Ordered: 06/07/2024 [facility] Comment on above: Ordered: 06/07/2024 HIV-1/HIV-2 antigen/antibody combination immunoassay HIV-1 and HIV-2 antibodies Lab Routine Missed menses , unspecified gestational age Ordered: 06/07/2024 [facility] Comment on above: Ordered: 06/07/2024 Human papilloma viru s DNA [Presence] in Unspecified specimen by Probe with amplification HPV DNA probe, amplified Microbiology Routine Well woman exam with routine gynecological exam Ordered: 08/05/2024 [facility] Comment on above: Ordered: 08/05/2024 Neisseria gonorrhoea e DNA [Presence] in Unspecified specimen by ESTEBAN with probe detection Neisseria gonorrhea DNA probe, direct Lab Routine Exposure to STD Ordered: 08/05/2024 [facility] Comment on above: Ordered: 08/05/2024 Reagin Ab [Presence] in Serum by RPR RPR Lab Routine Missed menses , unspecified gestational age Ordered: 06/07/2024 [facility] Comment on above: Ordered: 06/07/2024 Rubella antibody, IgG Rubella an tibody, IgG Lab Routine Missed menses , unspecified gestational age Ordered: 06/07/2024 [facility] Comment on above: Ordered: 06/07/2024 SURESWAB(R) ADVANCED VAGINITIS PLUS, TMA SURESWAB(R) ADVANCED VAGINITIS PLUS, TMA Pathology and Cytology Routine Exposure to STD Ordered: 08/05/2024 [facility] Work Phone: Comment on above: Ordered: 08/05/2024 [facility] TOTAL PROTEIN 24 HOUR URINE [facility] TOTAL PROTEIN 24 HOUR URINE Lab Ordered: 11/13/2024 [facility] Comment on above: Ordered: 11/13/2024 Immunizations Immunization Date Immunization Notes Care Provider Khai lopze 05-09-2019 influenza virus vacc ine, unspecified formulation Sammie Higginbotham DO Work Phone: [facility] Payers Date Payer Category Payer Private Health Insurance [facility] MEDICAID [id number] 2017 Medicaid [id number] 1990 Unknown [id number] 2.16.840.1.197220.3.579.2. 593 1992 Unknown [id number] 2.16.840.1.375697.3.579.2. 593 1992 Unknown [id number] 2.16.840.1.471132.3.579.2. 593 1992 Unknown [id number] 2.16.840.1.560013.3.579.2. 593 1992 Unknown [id number] 2.16.840.1.965632.3.579.2. 593 1992 Unknown [id number] 2.16.840.1.208367.3.579.2. 593 1992 Unknown [id number] 2.16.840.1.301014.3.579.2. 593 1992 Unknown [id number] 2.16.840.1.288683.3.579.2. 593 1992 Unknown [id number] 2.16.840.1.327706.3.579.2. 593 1992 Unknown [id number] 2.16.840.1.231795.3.579.2. 1259 1992 Unknown [id number] 2.16.840.1.718856.3.579.2. 9 1992 Unknown [id number] 2.16.840.1.642611.3.579.2. 1259 1992 Unknown [id number] 2.16.840.1.365225.3.579.2. 9 1992 Unknown [id number] 2.16.840.1.659932.3.579.2. 9 1992 Unknown [id number] 2.16.840.1.944870.3.579.2. 9 1992 Unknown [id number] 2.16.840.1.668887.3.579.2. 9 1992 Unknown [id number] 2.16.840.1.724007.3.579.2. 9 1992 Unknown [id number] 2.16.840.1.228369.3.579.2. 9 1992 Unknown [id number] 2.16.840.1.087834.3.579.2. 1259 1957 Self-pay [id number] 1957 Unknown [id number] Social History Date Type Detail Facility Tobacco smoking stat [facility] Tobacco smoking consumption unknown [facility] Start: 1990 Sex assigned at Not on file [facility] Gender identity Not on file [facility] Health are Start: 04-15-2024 [facility] Medical Equipment Procedure Code Equipment Code Equipment Origin al Text Equipment Identifier Dates 1 strip by In Vi tro route Daily Use in the morning prior to breakfast, 1 hour after each meal for a total of 4times daily. [id number] Start: 10-01-2024 End: 11-13-2024 1 each by In Vit ro route Daily Use to check FSBS four times daily [id number] Start: 10-01-2024 End: 11-13-2024 Clinical Notes 06-07-2024 to 11-27-2024 Madie Maldonado LPN - 11/27/2024 11:30 AM MARLEN Amaya - 11/13/2024 10:30 AM Kelley Maldonado, [place] - 10/30/2024 10:50 AM Cooper Sellers NP - 10/01/2024 9:30 AM EDT Note Date & Type Note Facility 11-27-2024 History of Presen t illness Narrative Reason for Appointment: Patient ID: Janina Martel is a 34 y.o. female who presents for Routine Visit Patient presents today for Return OB appointment. MEDICATIONS Current Outpatient Medications Medication Instructions Alcohol Swabs (Alcohol Prep Pad) 70 % pads 1 Pad, Topical, Daily, Use four times daily to check FSBS. Blood Glucose Monitoring Suppl (Visual Realm Glucometer) w/Device kit 1 kit, Does not [...] nursing note reviewed. Exam conducted with a operational risk analyst present. Vitals: There is no height or weight on file to calculate BMI. BP: 140/86 Patient's last menstrual period was 04/01/2024. ASSESSMENT & PLAN ICD-10-CM 1. Third trimester ([facility]) Z34.93 POCT urinalysis dipstick manually resulted 2. 34 weeks gestation of ([facility]) Z3A.34 3. Hypertension affecting in third trimester ([facility]) O16.3 labetalol (Normodyne) 100 MG tablet 4. Gestational diabetes mellitus (GDM), antepartum, gestational diabetes method of control unspecified ([facility]) O24.419 5. H/O pre-eclampsia in prior , currently ([facility]) O09.299 Return OB: Patient presents today [...] Sammie Higginbotham DO documented in this encounter [facility] 11-13-2024 History of Presen t illness Narrative Reason for Appointment: Patient ID: Janina Martel is a 34 y.o. female who presents for Routine Visit Patient presents today for Return OB appointment. MEDICATIONS Current Outpatient Medications Medication Instructions Alcohol Swabs (Alcohol Prep Pad) 70 % pads 1 Pad, Topical, Daily, Use four times daily to check FSBS. Blood Glucose Monitoring Suppl (Visual Realm Glucometer) w/Device kit 1 kit, Does not [...] of: MARLEN Estrada documented in this encounter [facility] 10-30-2024 History of Presen t illness Narrative [...] nursing note reviewed. Exam conducted with a operational risk analyst present. Vitals: There is no height or [...] Sammie Higginbotham DO documented in this encounter [facility] 10-01-2024 History of Presen t illness Narrative [...] nursing note reviewed. Exam conducted with a operational risk analyst present. Vitals: There is no height or [...] Lin Sellers NP documented in this encounter [facility] 09-02-2024 History of Presen t illness Narrative [...] nursing note reviewed. Exam conducted with a operational risk analyst present. Vitals: There is no height or [...] Sammie Higginbotham DO documented in this encounter [facility] 08-05-2024 History of Presen t illness Narrative [...] nursing note reviewed. Exam conducted with a operational risk analyst present. Vitals: There is no height or [...] of: MARLEN Estrada documented in this encounter [facility] 07-08-2024 History of Presen t illness Narrative [...] Sammie Higginbotham DO documented in this encounter [facility] 06-07-2024 History of Presen t illness Narrative [...] or undercooked meat, and stay away from [facility]. Patient has also been advised to [...] Isabel Keating MA documented in this encounter [facility] Evaluation note Diagnosis Missed menses 9 [...] state, incidental documented in this encounter [facility] Diagnosis Third trimester ([facility]) state, incidental 34 weeks gestation of ([facility]) Hypertension affecting in third trimester ([facility]) Gestational diabetes mellitus (GDM), antepartum, gestational diabetes method of control unspecified ([facility]) H/O pre-eclampsia in prior , currently ([facility]) documented in this encounter [facility] Summary Purpose Family History No Family History Records FoundNo Family History Records Found Advance Directives No Advanced Directives Records FoundNo Advanced Directives Records Found Additional Source Comments INFORMATION SOURCE (unrecogn ized section and content) DATE CREATED AUTHOR 11/24/2021 [facility] DATE CREATED AUTHOR AUTHOR'S ORGANIZ ATION 11/15/2024 [facility] Care Teams (unrecognized sec tion and content) Airport Operations Duty Manager Relationship Specialty Start Date End Date Sammie Higginbotham, DO [address], [place] [address] PCP [facility] 09/04/23 Airport Operations Duty Manager Relationship Specialty Start Date End Date Sammie Higginbotham, DO [address], [place] [address] [facility] 09/04/23 Airport Operations Duty Manager Relationship Specialty Start Date End Date Sammie Higginbotham, DO [address], [place] [address] PCP [facility] 09/04/23 Airport Operations Duty Manager Relationship Specialty Start Date End Date Sammie Higginbotham, DO [address], [facility] PCP [facility] 09/04/23 Airport Operations Duty Manager Relationship Specialty Start Date End Date Sammie Higginbotham, DO [address], [facility] 09/04/23 Airport Operations Duty Manager Relationship Specialty Start Date End Date Sammie Higginbotham, DO [address], [facility] 09/04/23 Airport Operations Duty Manager Relationship Specialty Start Date End Date Neftaly, Sammie, DO [address] [place] [address] PCP [facility] 09/04/23 Airport Operations Duty Manager Relationship Specialty Start Date End Date Neftaly, Sammie, DO [address], [facility] 09/04/23 Airport Operations Duty Manager Relationship Specialty Start Date End Date Neftaly, Sammie, DO [address], [facility] 09/04/23 Airport Operations Duty Manager Relationship Specialty Start Date End Date Neftaly Sammie, DO [address], [facility] 09/04/23 Airport Operations Duty Manager Relationship Specialty Start Date End Date Neftaly, Sammie, DO [address], [facility] 09/04/23 Airport Operations Duty Manager Relationship Specialty Start Date End Date Neftaly, Sammie, DO [address] [place] [address] [facility] 09/04/23 Reason for Visit (unrecogniz ed [...] BE BASED ON THE PRIMARY CLINICAL RECORDS. [facility]. provides no warranty or guarantee of the accuracy or completeness of information in this document.
== END 2024-11-28 08:49 | disposition home or self-care (01) ==
LOC: FBCO 07:50 → FBC 07:52
PROVIDERS: Visit Provider Obstetrics & Gynecology
DX: O26.893 Other specified pregnancy related conditions, third trimester (principal); Z3A.34 34 weeks gestation of pregnancy
CPT/HCPCS: 59025

== ENCOUNTER 2024-12-02 10:51 | Outpatient (OUT) | payer OTHER, SELFPAY ==
--- OUTSIDE RECORDS SUMMARY | 2024-11-27 11:30 | XMS_ITS | Encounter Summary ---
Author Organization [facility] Address [address] [place] [address] Care Team Providers Care Traffic Safety Administrator Name Role Phone Emmy Higginbothamy DO Unavailable Reason for Visit * Reason Comments Routine Visit Encounter Details Date Type Department Care Team (Late st Contact Info) Description 11/27/2024 11:30 AM EDT Routine [facility] [address] [place] [address] Michael Higginbotham, [address] [facility] [address] [place], [facility] Third trimester ([facility]); 34 weeks gestation of ([facility]); Hypertension affecting in third trimester ([facility]); Gestational diabetes mellitus (GDM), antepartum, gestational diabetes method of control unspecified ([facility]); H/O pre-eclampsia in prior , currently ([facility]) Social History Tobacco Use Types Packs/Day Years [...] Sign Reading Time Taken Comments Blood Pressure 140/86 11/27/2024 11:41 AM EDT Pulse - - Temperature - - Respiratory Rate - - Oxygen Saturation - - Inhaled Oxygen Concentration - - Weight 78.5 kg (173 lb) 11/27/2024 11:41 AM EDT Height - - Body Mass Index - - documented in this encounter Progress Notes * Madie Maldonado LPN - 11/27/2024 11:30 AM EDT Reason for Appointment: Patient ID: Bre Martel is a 34 y.o. female who presents for Routine Visit Patient presents today for Return OB appointment. MEDICATIONS Current Outpatient Medications Medication Instructions Alcohol Swabs (Alcohol Prep Pad) 70 % pads 1 Pad, Topical, Daily, Use four times daily to check FSBS. Blood Glucose Monitoring Suppl ([employer] Glucometer) w/Device kit 1 kit, Does not apply, Daily, Use four times daily to check FSBS. In the morning prior to breakfast & 1 hour after each meal for a total of 4times daily. labetalol (NORMODYNE) 200 mg, Oral, 2 times daily ALLERGIES No Known Allergies PROBLEMS [...] nursing note reviewed. Exam conducted with a line haul owner operator present. Vitals: There is no height or weight on file to calculate BMI. BP: 140/86 Patient's last menstrual period was 04/01/2024. ASSESSMENT & PLAN ICD-10-CM 1. Third trimester ([facility]) Z34.93 POCT urinalysis dipstick manually resulted 2. 34 weeks gestation of ([facility]) Z3A.34 3. Hypertension affecting in third trimester ([facility]) O16.3 labetalol (Normodyne) 100 MGtablet 4. Gestational diabetes mellitus (GDM), antepartum, gestational diabetes method of control unspecified ([facility]) O24.419 5. H/O pre-eclampsia in prior , currently ([facility]) O09.299 Return OB: Patient presents today for a routine obstetrics appointment. Patient is currently 34w2d . Patient states she is doing well but has complaints of being tired due to current . Patient has verbalizes frequent movement. Pt has mild pre-eclampsia- reviewed labs with pt in detail. Discussed and advised severe features of pre-eclampsia. Pt voiced understanding. Pt to increase labtalol to 200mg BID. labor precautions was discussed/given and patient was instructed to perform kick counts three times a day.Reviewed glucose labs with pt in detail Orders Placed This Encounter Procedures POCT urinalysis dipstick manually resulted Follow Up: Patient is to return to office in 2 week for routine OB appointment. Documented by Madie Maldonado LPN on behalf of: Michael Higginbotham DO documented in this encounter Plan of Treatment Upcoming Encounters Date Type Department Care Team (Late st Contact Info) Description 12/11/2024 11:20 AM EDT Routine [facility] [address] [place] [address] Michael Higginbotham DO [address] [place] [address] documented as of this encounter Procedures Procedure Name Priority Date/Time Associated Diagnosis Comments POCT URINALYSIS DIPSTICK Routine 11/27/2024 11:50 AM EDT Third trimester ([facility]) documented in this encounter Results * (ABNORMAL) POCT urinalysis dipstick manually resulted (11/27/2024 11:50 AM EDT) Color, UA Yellow Clarity, UA Clear Glucose, UA Negative Negative - 1999(110) ++++ mg/dL Bilirubin, UA Negative Negative - 4(70) +++ mg/dL Ketones, UA Negative Negative - 160(16) ++++ mg/dL Spec Grav, UA 1.015 1 - 1.03 Blood, UA Negative Negative - 50 Dario/mcL pH, UA 7.0 5 - 9 Protein, UA Trace Negative - 2000(20) ++++ mg/dL Urobilinogen, UA 0.2 0.2 - 12 mg/dL Leukocytes, UA Positive Negative - 500+++ Oksana/mcL Comment:Moderate Nitrite, UA Negative Negative - Positive Urine 11/27/2024 11:5 0 AM EDT Michael Higginbotham DO POINT OF CARE TEST ENTER/EDIT OR DERABLES Final Result documented in this encounter Visit Diagnoses Diagnosis Third trimester ([facility]) state, incidental 34 weeks gestation of ([facility]) Hypertension affecting in third trimester ([facility]) Gestational diabetes mellitus (GDM), antepartum, gestational diabetes method of control unspecified ([facility]) H/O pre-eclampsia in prior , currently ([facility]) documented in this encounter Care Teams Traffic Safety Administrator Relationship Specialty Start Date End Date Michael Higginbotham DO [address] [place] [address] [place] [address] PCP - [facility] 09/04/23 documented as of this encounter
--- NOTE | 2024-12-02 | US_ITS ---
The [address] [address] Patient Name: JANINA HUMMEL MRN: [facility]:[id number] date: 1990 Sex: F Assigned Patient Location: [facility] Current Patient Location: Accession/Order Number: [id number] Exam Date: 12/02/2024 11:51 Report Date: 12/02/2024 11:52 At the request of: SAMMIE AHUMADA DO Procedure: US OB BPP w non-stress BIOPHYSICAL PROFILE: CLINICAL INFORMATION: HISTORY OF PRE ECLAMPSIA O09.299 COMPARISON: 11/25/2024 There is a single live intrauterine gestation in cephalic presentation. The reported gestational age is 35 weeks 0 days. The heart rate measures 161 beats per minute. FINDINGS: TONE: 1 or more episodes of activity extension and flexion of extremity or opening and closing of the hand [Y] 2/2 GROSS BODY MOVEMENTS: 3 or more discrete body or limb movements [Y] 2/2 BREATHING MOVEMENTS: 1 or more episodes of breathing lasting at least 30 seconds [Y] 2/2 JUSTA: A single deepest vertical pocket of amniotic fluid greater than 2 cm [Y] 2/2 JUSTA: 16.1 cm. This is in upper normal range. Total score: 8/8 US/ OB BPP w non-stress IMPRESSION: NORMAL BIOPHYSICAL PROFILE Impression dictated by: Madie Long M.D. 12/02/2024 11:52 AM Dictation Location: [place] [address] Electronically authenticated by: [id number] Y Date: 12/02/2024 11:52
--- OUTSIDE RECORDS SUMMARY | 2024-12-02 10:53 | XMS_ITS | Encounter Summary ---
Author Organization [facility] Healthcare Address [address] [place] [place] [address] Care Team Providers Care Sports Activities Foul Judge Name Role Phone Michael Higginbotham DO Unavailable Encounter Details Date Type Department Care Team (Late st Contact Info) Description 11/13/2024 Abstract [facility] OB [address] [place] [address] Michael Higginbotham [address], [facility] Social History Tobacco Use Types Packs/Day Years [...] Description 12/11/2024 11:20 AM EDT Routine [facility] OB [address] [place] [address] Michael Higginbotham, DO [address], [facility] documented as of this encounter Visit Diagnoses Not on filedocumented in this encounter Care Teams Sports Activities Foul Judge Relationship Specialty Start Date End Date Michael Higginbotham DO [facility] [address], [place] [id number] PCP - [employer] 09/04/23 documented as of this encounter
--- OUTSIDE RECORDS SUMMARY | 2024-12-02 10:53 | XMS_ITS | Encounter Summary ---
Author Organization [facility] Address [address] [place] [address] Care Team Providers Care Client Sales And Service Officer Name Role Phone Sammie Higginbotham DO Unavailable Encounter Details Date Type Department Care Team (Late st Contact Info) Description 11/18/2024 Clinisync Result Encounter [facility] External Department Unsolicited [facility] [address] [place], [place] [id number] Social History Tobacco Use Types Packs/Day Years [...] EDT Routine [facility] [address] [place] [phone] Sammie Higginbotham, [facility] [place] [address] documented as of this encounter Procedures Procedure Name Priority Date/Time Associated Diagnosis Comments US OB BPP W NON-STRESS 11/18/2024 9:26 AM EDT documented in this encounter Results * US OB BPP W NON-STRESS (11/18/2024 9:26 AM EDT) Anatomical Region Laterality Modality Other 11/18/2024 9:26 AM EDT Narrative 11/18/2024 9:28 AM EDT [address] [address] Ultrasound Report Signed Patient: JANINA HUMMEL MR#: [id number] : 1990 Acct:[id number] Age/Sex: 34 / F ADM Date: 11/18/24 Loc: [facility] 250-[address]: Sammie Higginbotham D.O. Ordering Physician: Sammie Higginbotham D.O. Date of Service: 11/18/24 Procedure(s): US OB BPP w non-stress Accession Number(s): [id number] cc: Sammie Higginbotham D.O.; Physician,Non-Staff Mylene The [address] [address] Patient Name: JANINA HUMMEL MRN: [facility]:[id number] date: 1990 Sex: F Assigned Patient Location: [facility] Current Patient Location: [facility] Accession/Order Number: [id number] Exam Date: 11/18/2024 09:24 Report Date: 11/18/2024 [...] Long M.D. 11/18/2024 9:26 AM Dictation Location: [place] [address] Electronically authenticated by: [id number] Y Date: 11/18/2024 09:26 Dictated By: Madie Long M.D. Signed By: 11/18/24927 DD/ 5 TD/TT: Agile Business Analyst: Procedure Note Radiology, Radiologist, MD - 11/18/2024 [place] [address] Ultrasound Report Signed Patient: JANINA HUMMEL LMR#: [id number] : 1990Acct:[id number] Age/Sex: 34 / FADM Date: 11/18/24 Loc: [facility] 250-[address]: Sammie Higginbotham D.O. Ordering Physician: Sammie Higginbotham D.O. Date of Service: 11/18/24 Procedure(s): US OB BPP w non-stress Accession Number(s): [id number] cc: Sammie Higginbotham D.O.; Physician,Non-Staff Mylene The [place] [id number] Patient Name: JANINA HUMMEL MRN: [id number] date: 1990 Sex: F Assigned Patient Location: [facility] Current Patient Location: [facility] Accession/Order Number: [id number] Exam Date: 11/18/2024 09:24 Report Date: 11/18/2024 [...] Long M.D. 11/18/2024 9:26 AM Dictation Location: [place] [address] Electronically authenticated by: [id number] Y Date: 9:26 Dictated By: Madie Long M.D. Signed By:11/18/24927 DD/ 5 TD/TT: Agile Business Analyst: us Sammie Higginbotham DO [facility] Final Result documented in this encounter Visit Diagnoses Not on filedocumented in this encounter Care Teams Client Sales And Service Officer Relationship Specialty Start Date End Date Sammie Higginbotham DO [address] [place] [address] [place] [address] PCP - [facility] 09/04/23 documented as of this encounter
--- OUTSIDE RECORDS SUMMARY | 2024-12-02 10:53 | XMS_ITS | Encounter Summary ---
Author Organization [facility] Address [address] [place] [address] Care Team Providers Care Merchandising Representative Name Role Phone Michael Higginbotham DO Unavailable Encounter Details Date Type Department Care Team (Late st Contact Info) Description 10/07/2024 Abstract [facility] [address] [place] [address] Michael Higginbotham [address] [place] [address] Social History Tobacco Use Types Packs/Day [...] Description 12/11/2024 11:20 AM EDT Routine [facility] OB [address] [place] [address] Michael Higginbotham, DO [address], [id number] documented as of this encounter Visit Diagnoses Not on filedocumented in this encounter Care Teams Merchandising Representative Relationship Specialty Start Date End Date Michael Higginbotham DO [facility] [address] [place], [place] [phone] PCP - [employer] IUSS MASTER ANALYST 09/04/23 documented as of this encounter
--- OUTSIDE RECORDS SUMMARY | 2024-12-02 10:53 | XMS_ITS | Encounter Summary ---
Author Organization [facility] Address [id number] [address] [place] [address] Care Team Providers Care Bullet Lubricant Mixer Name Role Phone No Pcp, No Pcp Primary Care Provider Unavailabl e Reason for Referral * Diagnostic Imaging (Routine) - Closed Specialty Diagnoses / Procedures Referred By Contac t Referred To Contact Maternal and Medicine Diagnoses Abnormal chromosomal and genetic finding on screening of mother History of pre-eclampsia Hx of delivery, currently Procedures [facility] with or without consult Navarro Kee MD Phone: tel: fax: Maternal- Medicine at [place] [id number] [place] [address] Phone: tel: fax: Referral ID Status Reason Start Date Expiration Date Visits Re quested Visits Authorized [id number] Closed 08/24/2020 08/24/2021 1 1 Encounter Details Date Type Department Care Team (Late st Contact Info) Description 08/24/2020 Orders Only Maternal- Medicine at [place] [id number] [place] [phone] Navarro Kee MD [address] [facility], [address] [place] [id number] Abnormal chromosomal and genetic finding on screening [...] documented as of this encounter Results * [facility] OB FOLLOW-UP, 1 FETUS (09/21/2020 10:31 AM [...] Final 09/21/2020 11:31) PATIENT INFO: ID #: [id number] : [birth year] (30 yrs)(F) Name: JANINA MC Visit Date: 09/21/2020 10:06 HUMMEL PERFORMED BY: Performed By: Margret Hernandez RDMS Attending: Wes Szymanski MD Referred By: Michael Higginbotham DO Ref. Address: [address] [place] [address] [place] [address] Location: Maternal Medicine [facility] SERVICE(S) PROVIDED: OB Follow-up, 1 fetus [id number] Echocardiogram-complete 93577 INDICATIONS: Screening for follow-up survey Z36.2 History [...] Arch: Previously seen SVC: Previously seen Cardiac Sellers: Appears normal Diaphragm: Appears normal 3 Vessel [...] Final 09/21/2020 11:31) PATIENT INFO: ID #: [id number] : [birth year] (30 yrs)(F) Name: JANINA MC Visit Date: 09/21/2020 10:06 HUMMEL PERFORMED BY: Performed By: Margret Hernandez RDMS Attending: Wes Szymanski MD Referred By: Michael Duncan. Address: [address] [place] [address] [place] [address] Location: Maternal Medicine [facility] SERVICE(S) PROVIDED: OB Follow-up, 1 fetus 66137 Echocardiogram-complete 27123 INDICATIONS: Screening for follow-up survey Z36.2 History [...] Arch: Previously seen SVC: Previously seen Cardiac Sellers: Appears normal Diaphragm: Appears normal 3 Vessel [...] trimester documented in this encounter Care Teams Bullet Lubricant Mixer Relationship Specialty Start Date End Date No Pcp, No Pcp [place] [address] PCP - General Family Medicine 02/26/20 documented as of this encounter
--- OUTSIDE RECORDS SUMMARY | 2024-12-02 10:53 | XMS_ITS | Clinical Summary ---
Author Organization [facility] Address [address] [place] [address] Care Team Providers Care Rehabilitation Nurse Name Role Phone Sammie Higginbotham DO Unavailable [...] tabletIndicati ons:Hypertensi on affecting in third trimester ([facility]) Take 2 tablets (200 mg) by [...] tabletIndicati ons:Hypertensi on affecting in third trimester ([facility] Take 1 tablet (100 mg) by mouth in the morning and 1 tablet (100 mg) before bedtime. 60 tablet 3 11/14/19 25 025 Discontinued(Re order) Encounters Date Type Department Care Team Description 11/27/2024 11:30 AM EDT Routine [facility] OB [address] [place] [address] Sammie Higginbotham, DO Third trimester ([facility]); 34 weeks gestation of ([facility]); Hypertension affecting in third trimester ([facility]); Gestational diabetes mellitus (GDM), antepartum, gestational diabetes method of control unspecified ([facility]); H/O pre-eclampsia in prior , currently ([facility]) 11/27/2024 Bamboo flowsheet [facility] OB [facility] [place] [address] Sammie Higginbotham, DO 11/25/2024 Clinisync Result Encounter NOM[facility] External Department Unsolicited Sammie Higginbotham, DO 11/18/2024 Clinisync Result Encounter NOMS External Department Unsolicited Sammie Higginbotham, DO 11/18/2024 Results Follow-Up [facility] [place] [address] [place] [address] Leora Loredo LPN 11/15/2024 Telephone [facility] [place] [address] [place] [address] Cordelia Green LPN 11/13/2024 10:30 AM EDT Routine [facility] OB [facility] [place] [address] Diya Villanueva PA Hypertension affecting in third trimester ([facility]) (Primary Dx); 32 weeks gestation of ([facility]); Third trimester ([facility]) 11/13/2024 Clinisync Result Encounter [facility]OMS External Department Unsolicited Sammie Higginbotham, DO 11/13/2024 Abstract [facility] [place] [address] [place] [address] Sammie Higginbotham, DO 11/13/2024 Bamboo flowsheet [facility]OM[facility] [address] [place] [address] Diya Villanueva PA 11/12/2024 Clinisync Result Encounter NOMS External Department Unsolicited Sammie Higginbotham, 10/30/2024 10:50 AM EDT Routine [facility]OM[facility] [address] [place] [address] Sammie Higginbotham, DO 30 weeks gestation of ([facility]); Third trimester ([facility]); H/O pre-eclampsia in prior , currently ([facility]); Gestational diabetes mellitus (GDM), antepartum, gestational diabetes method of control unspecified ([facility]) 10/30/2024 10:00 AM EDT Ancillary Procedure [facility] [address] [place] [address] H/O pre-eclampsia in prior , currently ([facility]) 10/14/20[address] [facility] [address] [place] [address] Paola Centeno MA 10/07/2024 Abstract [facility] [address] [place] [address] Sammie Higginbotham, 10/01/2024 9:30 AM EDT Routine [facility]OM[facility] [address] [place] [address] Lin Sellers NP Second trimester ([facility]); size inconsistent with dates ([facility]); H/O pre-eclampsia in prior , currently ([facility]); Gestational diabetes mellitus (GDM), antepartum, gestational diabetes method of control unspecified ([facility]); Elevated glucose tolerance test 10/01/2024 Abstract [facility] [address] [place] [address] Sammie Higgibnotham, 10/01/2024 Bamboo flowsheet [facility] [address] [place] [address] Lin Sellers NP 09/05/2024 Abstract [facility] [address] [place] [address] Sammie Higginbotham DO 09/02/2024 9:50 AM EDT Routine [facility] [address] [place] [address] Sammie Higginbotham DO Second trimester ([facility]); 22 weeks gestation of ([facility]); Diabetes mellitus screening 09/02/2024 Bamboo flowsheet [facility]OM[facility] [address] [place] [phone] Sammie Higginbotham DO from Last 3 Months [...] Description 12/11/2024 11:20 AM EDT Routine [facility] [address] [place] [phone] Sammie Higginbotham DO [address] [place] [address] [place] [address] Health Maintenance Due Date Last Done Comments Influenza Vaccine (Season Ended) 2025 05/09/20 19 Cervical Cancer Screening 08/05/2029 HPV/Cotest 08/05/2029 03/15/2023 Pap Smear 08/05/2029 08/05/2024 Procedures Procedure Name Priority Date/Time Associated Diagnosis Comments POCT URINALYSIS DIPSTICK Routine 11/27/2024 11:50 AM EDT Third trimester ([facility]) US OB BPP W NON-STRESS 11/25/2024 10:37 AM EDT US OB BPP W NON-STRESS 11/18/2024 9:26 AM EDT TBH TOTAL PROTEIN 24 HOUR URINE Routine 11/13/2024 7:15 PM EDT POCT URINALYSIS DIPSTICK Routine 11/13/2024 10:33 AM EDT 32 weeks gestation of ([facility]) Third trimester ([facility]) TBH URINE T PROTEIN CREAT [...] 10:35 AM EDT 30 weeks gestation of ([facility]) Third trimester ([facility]) US OB FOLLOW UP TRANSABDOMINAL APPROACH Routine 10/30/2024 10:16 AM EDT H/O pre-eclampsia in prior , currently ([facility]) POCT URINALYSIS DIPSTICK Routine 09/02/2024 9:53 AM EDT Second trimester ([facility]) PAP SMEAR Routine 08/05/2024 12:00 AM [...] AM EDT Narrative 11/25/2024 10:40 [place] [address] Ultrasound Report Signed Patient: JANINA HUMMEL MR#: [id number] : 1990 Acct:[id number] Age/Sex: 34 / F ADM Date: 11/25/24 Loc: [facility] 251-[address]: Sammie Higginbotham D.O. Ordering Physician: Sammie Higginbotham D.O. Date of Service: 11/25/24 Procedure(s): US OB BPP w non-stress Accession Number(s): [id number] cc: Sammie Higginbotham D.O.; Physician,Non-Staff M.Kaylee [place] [address] Patient Name: JANINA HUMMEL MRN: [id number] date: 1990 Sex: F Assigned Patient Location: Current Patient Location: US Accession/Order Number: [id number] Exam Date: 11/25/2024 10:35 Report Date: 11/25/2024 [...] Long M.D. 11/25/2024 10:37 AM Dictation Location: [place] [address] Electronically authenticated by: [id number] Y Date: 11/25/2024 10:37 Dictated By: Madie Long M.D. Signed By: 11/25/24 1040 DD/ 1037 TD/TT: Salesperson Meats: Procedure Note Radiology, Radiologist, MD - 11/25/2024 [place] [address] Ultrasound Report Signed Patient: JANINA HUMMEL LMR#: [id number] : 1990Acct:[id number] Age/Sex: 34 / FADM Date: 11/25/24 Loc: [facility] 251-[address]: Sammie Higginbotham D.O. Ordering Physician: Sammie Higginbotham D.O. Date of Service: 11/25/24 Procedure(s): US OB BPP w non-stress Accession Number(s): [id number] cc: Sammie Higginbotham D.O.; Physician,Non-Staff [place] [id number] Patient Name: JANINA HUMMEL MRN: [id number] date: 1990 Sex: F Assigned Patient Location: US Current Patient Location: US Accession/Order Number: [id number] Exam Date: 11/25/2024 10:35 Report Date: 11/25/2024 [...] Long M.D. 11/25/2024 10:37 AM Dictation Location: [place] [address] Electronically authenticated by: [id number] Y Date: 0:37 Dictated By: Madie Long M.D. Signed By:11/25/24 1040 DD/ 1037 TD/TT: Salesperson Meats: Sammie Neftaly DO [facility] Final Result * (ABNORMAL) [facility]H TOTAL PROTEIN 24 HOUR URINE (11/13/2024 7:15 PM EDT) Pathologist [facility] TOTAL PROTEIN URINE RANDOM 10.8 <=11.9 mg/dL TBH TOTAL VOLUME 24 HOUR URINE 2,800 mL/24hr TBH TBH TOTAL PROTEIN 24 HOUR URINE 302.4(H) <=149.1 mg/24hr TBH 11/13/2024 7:15 PM EDT 11/13/2024 8:54 PM EDT Narrative CLINIS[facility] - 11/13/2024 10:18 PM EDT Sammie Neftaly DO [facility] Final Result [facility] * (ABNORMAL) TBH URINE T PROTEIN CREAT RATIO (11/12/2024 3:00 PM EDT) TOTAL PROTEIN URINE RANDOM <6.0 <=11.9 mg/dL TBH CREATININE URINE RANDOM 19.35(L) 20.00 - 300.00 mg/dL TBH 11/12/2024 3:00 PM EDT 11/12/2024 3:00 PM EDT Narrative CLINISYNC - 11/12/2024 3:08 PM EDT [facility] Final Result [facility] * (ABNORMAL) TBH CREATININE (11/12/2024 1:58 PM EDT) CREATININE 0.49(L) 0.55 - 1.02 mg/dL TBH TBH EGFR-AF LIBYAN >60 >=60 mL/min/1.7 3m 2 TBH TBH EGFR-NON AF LIBYAN >60 >=60 mL/min/1.7 3m 2 TBH 11/12/2024 1:58 PM EDT 11/12/2024 2:02 PM EDT Narrative CLINISYNC - 11/12/2024 2:20 PM EDT [facility] Final Result Performing Organization Address [facility]/ZIP Co de Phone Number [facility] * SRMCOH PROTHROMBIN TIME INR W/O COUM [...] DO CLINISYNC Final Result Performing Organization Address [facility]/ZIP Co de Phone Number [facility] TB * (ABNORMAL) [facility] AST (11/12/2024 1:58 PM EDT) ASPARTATE AMINO TRANSFERASE 11(L) 15 - 37 U/L TBH 11/12/2024 1:58 PM EDT 11/12/2024 2:02 PM EDT Narrative CLINISYNC - 11/12/2024 2:20 PM EDT Sammie Neftaly DO CL[facility] Final Result Performing Organization Address [facility] Co de Phone Number [facility] TB * [facility] APTT (11/12/2024 1:58 PM EDT) PARTIAL THROMBOPLASTIN TIME 23.3 22.3 - 36.2 sec TBH 11/12/2024 1:58 PM EDT 11/12/2024 2:02 PM EDT Narrative CLINISYNC - 11/12/2024 2:48 PM EDT Sammie Neftaly DO [facility] Final Result Performing Organization Address [facility] Co de Phone Number [facility] TBH * [facility] ALT (11/12/2024 1:58 PM EDT) ALANINE AMINOTRANSFERASE 14 14 - 59 U/L [facility] 11/12/2024 1:58 PM EDT 11/12/2024 2:02 PM EDT Narrative CLINISYNC - 11/12/2024 2:20 PM EDT Sammie Neftaly DO CLIN[facility] Final Result [facility] TB * ALL URIC ACID (11/12/2024 1:58 PM EDT) Pathologist [facility] URIC ACID 3.6 2.6 - 6.0 mg/dL TB 11/12/2024 1:58 PM EDT 11/12/2024 2:02 PM EDT Narrative CLINISYNC - 11/12/2024 2:20 PM EDT Sammie Neftaly DO CLIN[facility] Final Result Performing Organization Address City/[facility]/ZIP Co de Phone Number [facility] TB * (ABNORMAL) ALL CBC WITH AUTO DIFF (11/12/2024 1:58 PM EDT) Pathologist [facility] TB WBC 13.8(H) 4.0 - 11.0 [...] DO CLINISYNC Final Result Performing Organization Address City/[facility]/ZIP Co de Phone Number [facility] * ALL BUN (11/12/2024 1:58 PM EDT) Pathologist [facility] BLOOD UREA NITROGEN 13.0 7.0 - 18.0 mg/dL TBH 11/12/2024 1:58 PM EDT 11/12/2024 2:02 PM EDT Narrative CLINISYNC - 11/12/2024 2:20 PM EDT us Sammie Neftaly DO [facility] Final Result [facility] * US OB follow up transabdominal approach [...] II, MD, PHD at 30-Oct-2024 11:19:03 PM [facility] Procedure Note Amy Steele MD - [...] AMY STEELE II, MD, PHD 11:19:03 PM [facility] us Lin Sellers CONSOLIDATION ACCOUNTANT IMG OB US PROCEDURES Final Re sult [...] Health Maintenance Insurance [employer] Care Teams Rehabilitation Nurse Relationship Specialty Start Date End Date Sammie Higginbotham DO [facility] [place] [address] [facility] 09/04/23
--- OUTSIDE RECORDS SUMMARY | 2024-12-02 10:53 | XMS_ITS | Encounter Summary ---
Author Organization [facility] Healthcare Address [address] [place] [address] Care Team Providers Care Corn Husker Name Role Phone Michael Higginbotham DO Unavailable Encounter Details Date Type Department Care Team (Late st Contact Info) Description 07/01/2024 Abstract [facility] OB [address] [place] [address] Michael Higginbotham [address] [place] [address] Social History Tobacco Use Types Packs/Day [...] Description 12/11/2024 11:20 AM EDT Routine [facility] OB [address] [place] [address] Michael Higginbotham, DO [address], [facility]11 documented as of this encounter Visit Diagnoses Not on filedocumented in this encounter Care Teams Corn Husker Relationship Specialty Start Date End Date Michael Higginbotham DO [facility] [address] [place], [place] [phone] PCP - [employer] CATTLE TESTER 09/04/23 documented as of this encounter
--- OUTSIDE RECORDS SUMMARY | 2024-12-02 10:53 | XMS_ITS | Encounter Summary ---
Author Organization [facility] Address [address] [facility] [place] [address] Care Team Providers Care Invoice Checker Name Role Phone Michael Higginbotham DO Unavailable Encounter Details Date Type Department Care Team (Late st Contact Info) Description 08/19/2024 Orders Only [facility] [address] [address] Isabel Keating [place] [address] [facility] [place] [address] Social History Tobacco Use Types Packs/Day Years [...] Routine [facility] OB [address] [place] [address] Michael Higginbotham, [address] [facility] [address] [place], [place] [phone] documented as of this encounter Procedures Procedure Name Priority Date/Time Associated Diagnosis Comments PAP SMEAR Routine 08/05/2024 12:00 AM EST documented in this encounter Results * Pap Smear (08/05/2024 12:00 AM EST) Swab Cervical swab / Unknown Di[facility] CYTOLOGY ORDERABLES Final Re sult EXTERNAL LAB documented in this encounter Visit Diagnoses Not on filedocumented in this encounter Care Teams Invoice Checker Relationship Specialty Start Date End Date Michael Higginbotham DO [address] [place] [address] PCP - [facility] HOSPITAL PERSONNEL DIRECTOR 09/04/23 documented as of this encounter
--- OUTSIDE RECORDS SUMMARY | 2024-12-02 10:53 | XMS_ITS | Encounter Summary ---
Author Organization [facility] Address [address] [facility] [place] [address] Care Team Providers Care Household Appliances Salesperson Name Role Phone Michael Higginbotham DO Unavailable Encounter Details Date Type Department Care Team (Late st Contact Info) Description 10/01/2024 Abstract [facility] OB [address] [place] [address] Michael Higginbotham [address] [place] [address] Social History Tobacco Use Types Packs/Day [...] Description 12/11/2024 11:20 AM EDT Routine [facility] OB [address] [place] [address] Michael Higginbotham, DO [address] [place], [facility] documented as of this encounter Visit Diagnoses Not on filedocumented in this encounter Care Teams Household Appliances Salesperson Relationship Specialty Start Date End Date Michael Higginbotham DO [facility] [address] [place], [place] [phone] PCP - [employer] COMPUTER TECHNOLOGY INSTRUCTOR 09/04/23 documented as of this encounter
--- OUTSIDE RECORDS SUMMARY | 2024-12-02 10:53 | XMS_ITS | Encounter Summary ---
Author Organization [facility] Address [address] [facility] [place] [address] Care Team Providers Care Chemical Educator Name Role Phone Michael Higginbotham DO Unavailable Encounter Details Date Type Department Care Team (Late st Contact Info) Description 02/25/2023 Abstract [facility] OB [address] [place] [address] Michael Higginbotham DO [address] [place], [id number] [...] Description 12/11/2024 11:20 AM EDT Routine [facility] OB [address] [place] [address] Michael Higginbotham DO [address] [place], [place] [address] documented as of this encounter Visit Diagnoses Not on filedocumented in this encounter Care Teams Chemical Educator Relationship Specialty Start Date End Date Michael Higginbotham DO [place], [place] [phone] PCP - [facility] 09/04/23 documented as of this encounter
--- OUTSIDE RECORDS SUMMARY | 2024-12-02 10:53 | XMS_ITS | Clinical Summary ---
Author Organization [facility] Address [id number] [address] [place] [address] Care Team Providers Care It Infrastructure Consultant Name Role Phone No Pcp, No Pcp [...] on file Insurance [employer] Care Teams It Infrastructure Consultant Relationship Specialty Start Date End Date No Pcp, [place] [phone] PCP - General Family Medicine 02/26/20
--- OUTSIDE RECORDS SUMMARY | 2024-12-02 10:53 | XMS_ITS | Encounter Summary ---
Author Organization [facility] Address [address] [facility] [place] [address] Care Team Providers Care Gold Prospector Name Role Phone Michael Higginbotham DO Unavailable Encounter Details Date Type Department Care Team (Late st Contact Info) Description 11/15/2024 Telephone [facility] OB [address] [place] [address] [place] [address] Cordelia Green LPN Social History Tobacco [...] scheduled for her N[facility] this morning [facility] and patient was advised to notify them of any concerns/issues she had. PVU and will reach out to office with frther concerns. Cordelia Winn LPN documented in this encounter Plan of Treatment Upcoming Encounters Date Type Department Care Team (Late st Contact Info) Description 12/11/2024 11:20 AM EDT Routine [facility] OB [address] [place] [address] Michael Higginbotham DO [address] [place] [address] documented as of this encounter Visit Diagnoses Not on filedocumented in this encounter Care Teams Gold Prospector Relationship Specialty Start Date End Date Michael Higginbotham DO [address] [place] [address] PCP - [facility] 09/04/23 documented as of this encounter
--- OUTSIDE RECORDS SUMMARY | 2024-12-02 10:54 | XMS_ITS | Encounter Summary ---
Author Organization [facility] Address [address] [facility] [place] [address] Care Team Providers Care Drencher Name Role Phone Michael Higginbotham DO Unavailable Encounter Details Date Type Department Care Team (Late st Contact Info) Description 11/27/2024 Bamboo flowsheet [facility] OB [address] [place] [address] Michael Higginbotham [facility] [address] [place], [facility] Social History Tobacco Use Types Packs/Day [...] Routine [facility] OB [address] [place] [address] Michael Higginbotham, DO [address] [place], [place] [phone] documented as of this encounter Visit Diagnoses Not on filedocumented in this encounter Care Teams Drencher Relationship Specialty Start Date End Date Michael Higginbotham DO [facility] [address] [place], [place] [address] PCP - [facility] 09/04/23 documented as of this encounter
--- OUTSIDE RECORDS SUMMARY | 2024-12-02 10:54 | XMS_ITS | Encounter Summary ---
Author Organization [facility] Address [address] [facility] [place] [address] Care Team Providers Care Vp Compliance Name Role Phone Neftaly Michael DO Unavailable Encounter Details Date Type Department Care Team (Late st Contact Info) Description 11/18/2024 Results Follow-Up [facility] [address] [facility] [place] [address] Leora Loredo LPN [address] [place] [address] Social History Tobacco Use Types [...] AM EDT Routine [facility] [address] [facility] [place] [address] Michael Higginbotham, [address] [facility] [address] [place], [place] [id number] documented as of this encounter Visit Diagnoses Not on filedocumented in this encounter Care Teams Vp Compliance Relationship Specialty Start Date End Date Michael Higginbotham DO [address] [place] [address] [place] [address] PCP - [facility] 09/04/23 documented as of this encounter
--- OUTSIDE RECORDS SUMMARY | 2024-12-02 10:54 | XMS_ITS | Encounter Summary ---
Author Organization [facility] Address [address] [place] [address] Care Team Providers Care Plumbing Installer Name Role Phone Sammie Higginbotham DO Unavailable Encounter Details Date Type Department Care Team (Late st Contact Info) Description 11/25/2024 Clinisync Result Encounter [facility] External Department [facility]olic[facility] [address] [place], [place] [id number] Social History Tobacco Use Types Packs/Day Years [...] AM EDT Routine [facility] [address] [place] [phone] Sammie Higginbotham, [facility] [place] [address] documented as of this encounter Procedures Procedure Name Priority Date/Time Associated Diagnosis Comments US OB BPP W NON-STRESS 11/25/2024 10:37 AM EDT documented in this encounter Results * US OB BPP W NON-STRESS (11/25/2024 10:37 AM EDT) Anatomical Region Laterality Modality Other 11/25/2024 10:3 7 AM EDT Narrative 11/25/2024 10:40 [place] [address] Ultrasound Report Signed Patient: JANINA HUMMEL MR#: [id number] : 1990 Acct:[id number] Age/Sex: 34 / F ADM Date: 11/25/24 Loc: [facility] 251-[address]: Sammie Higginbotham D.O. Ordering Physician: Sammie Higginbotham D.O. Date of Service: 11/25/24 Procedure(s): US OB BPP w non-stress Accession Number(s): [id number] cc: Sammie Higginbotham D.O.; Physician,Non-Staff [place] [address] Patient Name: JANINA HUMMEL MRN: [facility]:[id number] date: 1990 Sex: F Assigned Patient Location: Current Patient Location: [place] Accession/Order Number: [id number] Exam Date: 11/25/2024 10:35 Report Date: 11/25/2024 [...] 11/25/2024 10:37 AM Dictation Location: [place] [address] Electronically authenticated by: [id number] Y Date: 11/25/2024 10:37 Dictated By: Madie Long M.D. Signed By: 11/25/24 1040 DD/ 1037 TD/TT: Strategic Planning Specialist: Procedure Note Radiology, Radiologist, MD - 11/25/2024 [place] [address] Ultrasound Report Signed Patient: JANINA HUMMEL LMR#: [id number] : 1990Acct:[id number] Age/Sex: 34 / FADM Date: 11/25/24 Loc: [facility] 251-[address]: Sammie Higginbotham D.O. Ordering Physician: Sammie Higginbotham D.O. Date of Service: 11/25/24 Procedure(s): US OB BPP w non-stress Accession Number(s): [id number] cc: Sammie Higginbotham D.O.; Physician,Non-Staff [place] [facility] [place] [id number] Patient Name: JANINA HUMMEL MRN: [id number] date: 1990 Sex: F Assigned Patient Location: Current Patient Location: [place] Accession/Order Number: [id number] Exam Date: 11/25/2024 10:35 Report Date: 11/25/2024 [...] 11/25/2024 10:37 AM Dictation Location: [place] [address] Electronically authenticated by: [id number] Y Date: 0:37 Dictated By: Madie Long M.D. Signed By:11/25/24 1040 DD/ 1037 TD/TT: Strategic Planning Specialist: us Sammie Higginbotham DO [facility] Final Result documented in this encounter Visit Diagnoses Not on filedocumented in this encounter Care Teams Plumbing Installer Relationship Specialty Start Date End Date Sammie Higginbotham DO [address] [place] [address] [place] [address] PCP - [facility] 09/04/23 documented as of this encounter
--- OUTSIDE RECORDS SUMMARY | 2024-12-02 10:54 | XMS_ITS | Encounter Summary ---
Author Organization [facility] Address [address] [facility] [place] [address] Care Team Providers Care Bait Man Name Role Phone Michael Higginbotham DO Unavailable Encounter Details Date Type Department Care Team (Late st Contact Info) Description 09/05/2024 Abstract [facility] [address] [place] [address] Michael Higginbotham [address] [place] [address] Social History Tobacco Use Types Packs/Day [...] Description 12/11/2024 11:20 AM EDT Routine [facility] [address] [place] [address] Michael Higginbotham, DO [address] [place], [facility] documented as of this encounter Visit Diagnoses Not on filedocumented in this encounter Care Teams Bait Man Relationship Specialty Start Date End Date Michael Higginbotham DO [facility] [place], [place] [phone] PCP - [facility] [facility] 09/04/23 documented as of this encounter
--- OUTSIDE RECORDS SUMMARY | 2024-12-02 11:14 | XMS_ITS | CCD ---
Author Organization [facility] CliniSyin Care Team Providers Care Manager Recovery Name Role Phone NEFTALY, DR COCHRAN Attending [...] Unavaila ble KARASIPavan, DR LOTT Consulting Unavailable [place], DR POLLO Gonzalez Consulting Unavailable NEFTALY, DR [...] HIGGINBOTHAM Attending Unavailable DIYA ROBLES Attending Unavailable SAMMIE HIGGINBOTHAM Attending Unavailable Medications Current [...] UA Negative Negative - 4(70) +++ mg/dL [facility] Blood, UA Negative Negative - 50 Dario/mcL [facility] Clarity, UA Clear [facility] re Color, UA Yellow [facility] Healthcar e Glucose, UA Negative Negative - 1999(110) ++++ mg/dL [facility] Interpretation and review of laboratory results Abnormal [facility] re Ketones, UA Negative Negative - 160(16) ++++ mg/dL [facility] Leukocytes, UA Positive Negative - 500+++ Oksana/mcL [facility] Comment on above: Moderate Nitrite, UA Negative Negative - Positive [facility] pH, UA 7 5 - 9 [facility] Healthcar e Protein, UA Trace Negative - 1999(20) ++++ mg/dL [facility] Spec Grav, UA 1.015 1 - 1.03 [facility] Urobilinogen, UA 0.2 0.2 - 12 mg/dL [facility] Healthcar e US OB BPP W NON-STRESS on 11-25-[address] [address] Ultrasound Report Signed Patient: JANINA MARTEL MR#: [id number] : 1990 Acct:[id number] Age/Sex: 34 / F ADM Date: 11/25/24 Loc: [facility] 251-[address]: Sammie Higginbotham D.O. Ordering Physician: Sammie Higginbotham D.O. Date of Service: 11/25/24 Procedure(s): US OB BPP w non-stress Accession Number(s): [id number] cc: Sammie Higginbotham D.O.; Physician,Non-Staff [place] [address] Patient Name: JANINA MARTEL MRN: [id number] date: 1990 Sex: F Assigned Patient Location: Current Patient Location: US Accession/Order Number: [id number] Exam Date: 11/25/2024 10:35 Report Date: 11/25/2024 [...] Long M.D. 11/25/2024 10:37 AM Dictation Location: [place] [address] Electronically authenticated by: [id number] Y Date: 11/25/2024 10:37 Dictated By: Madie Long M.D. Signed By: 11/25/24 1040 DD/ 1037 TD/TT: Net Solutions Architect: [facility] Radiology, Radiologist, MD - 11/25/2024 [place] [address] Ultrasound Report Signed Patient: JANINA MARTEL MR#: [id number] : 1990 Acct:[id number] Age/Sex: 34 / F ADM Date: 11/25/24 Loc: [facility] 251-[address]: Sammie Higginbotham D.O. Ordering Physician: Sammie Higginbotham D.O. Date of Service: 11/25/24 Procedure(s): US OB BPP w non-stress Accession Number(s): [id number] cc: Sammie Higginbotham D.O.; Physician,Non-Staff [place] [address] Patient Name: JANINA MARTEL MRN: [facility]:[id number] date: 1990 Sex: F Assigned Patient Location: US Current Patient Location: US Accession/Order Number: [id number] Exam Date: 11/25/2024 10:35 Report Date: 11/25/2024 [...] Long M.D. 11/25/2024 10:37 AM Dictation Location: [place] [address] Electronically authenticated by: [id number] Y Date: 11/25/2024 10:37 Dictated By: Madie Long M.D. Signed By: 11/25/24 1040 DD/ 1037 TD/TT: Net Solutions Architect: [facility] [employer] Radiology Study observation (narrative) [facility] [employer] US OB BPP W NON-STRESS Ordered By: Radiologist Radiology [facility]-2024 [facility]: US OB BPP W NON-STRESS on 11-18-2024 [place] [address] Ultrasound Report Signed Patient: JANINA MARTEL MR#: [id number] : 1990 Acct:[id number] Age/Sex: 34 / F ADM Date: 11/18/24 Loc: [facility] 250-[address]: Sammie Higginbotham D.O. Ordering Physician: Sammie Higginbotham D.O. Date of Service: 11/18/24 Procedure(s): US OB BPP w non-stress Accession Number(s): [id number] cc: Sammie Higginbotham D.O.; Physician,Non-Staff M.Kaylee The [place] [id number] Patient Name: JANINA MARTEL MRN: [id number] date: 1990 Sex: F Assigned Patient Location: [facility] Current Patient Location: [facility] Accession/Order Number: [id number] Exam Date: 11/18/2024 09:24 Report Date: 11/18/2024 [...] Long M.D. 11/18/2024 9:26 AM Dictation Location: [place] [address] Electronically authenticated by: [id number] Y Date: 11/18/2024 09:26 Dictated By: Madie Long M.D. Signed By: 11/18/24927 DD/ 5 TD/TT: Net Solutions Architect: [facility] Radiology, Radiologist, MD - 11/18/2024 [place] [address] Ultrasound Report Signed Patient: JANINA MARTEL MR#: [id number] : 1990 Acct:[id number] Age/Sex: 34 / F ADM Date: 11/18/24 Loc: [facility] 250-[address]: Sammie Higginbotham D.O. Ordering Physician: Sammie Higginbotham D.O. Date of Service: 11/18/24 Procedure(s): US OB BPP w non-stress Accession Number(s): [id number] cc: Sammie Higginbotham D.O.; Physician,Non-Staff [place] The [address] [address] Patient Name: JANINA MARTEL MRN: [facility]:[id number] date: 1990 Sex: F Assigned Patient Location: [facility] Current Patient Location: [facility] Accession/Order Number: [id number] Exam Date: 11/18/2024 09:24 Report Date: 11/18/2024 [...] Long M.D. 11/18/2024 9:26 AM Dictation Location: [place] [address] Electronically authenticated by: [id number] Y Date: 11/18/2024 09:26 Dictated By: Madie Long M.D. Signed By: 11/18/2428 DD/ 5 TD/TT: Net Solutions Architect: [facility] [employer] Radiology Study observation (narrative) [facility] [employer] OB BPP W NON-STRESS Ordered By: Radiologist Radiology on 11-18-2024 [facility] Phone: [facility] TOTAL PROTEIN 24 HOUR UR INEon 11-13-2024 Interpretation and review of laboratory results Abnormal [facility] [employer] re Protein (U) [Mass/Vol] 10.8 mg/dL [facility] 11[facility] mg/dL [facility] [employer] TBH TOTAL PROTEIN 24 HOUR URINE 302.4 High [facility] [employer] TOTAL VOLUME 24 HOUR URINE 2800 mL/24hr [facility] e Urinalysis macro (dipstick) panel (U)on 11-13-2024 Bilirubin, UA Negative Negative - 4(70) +++ mg/dL [facility] Blood, UA Negative Negative - 50 Dario/mcL [facility] Clarity, UA Clear [facility] Healthca re Color, UA Yellow [facility] Health[facility] e Glucose, UA Negative Negative - 1999(110) ++++ mg/dL [facility] Interpretation and review of laboratory results Abnormal [facility] Healthca re Ketones, UA Positive Negative - 160(16) ++++ mg/dL [facility] Comment on above: 40 Leukocytes, UA Trace Negative - 500+++ Oksana/mcL [facility] Nitrite, UA Negative Negative - Positive [facility] pH, UA 6.5 5 - 9 [facility] e Protein, UA Negative Negative - 1999(20) ++++ mg/dL [facility] Spec Grav, UA 1.005 1 - 1.03 [facility] Urobilinogen, UA 0.2 0.2 - 12 mg/dL [facility] Healthcar e US OB BPP W NON-STRESS on 11-12-2024 [place] [address] Ultrasound Report Signed Patient: JANINA MARTEL MR#: [id number] : 1990 Acct:[id number] Age/Sex: 34 / F ADM Date: 11/12/24 Loc: [facility] 254-[address]: Sammie Higginbotham D.O. Ordering Physician: Sammie Higginbotham D.O. Date of Service: 11/12/24 Procedure(s): US OB BPP w non-stress Accession Number(s): [id number] cc: Sammie Higginbotham D.O.; Physician,Non-Staff MKeke The [address] [address] Patient Name: JANINA MARTEL MRN: [id number]:[id number] date: 1990 Sex: F Assigned Patient Location: [facility] Current Patient Location: [facility] Accession/Order Number: [id number] Exam Date: 11/12/2024 12:13 Report Date: 11/12/2024 [...] Long M.D. 11/12/2024 12:14 PM Dictation Location: [place] [address] Electronically authenticated by: [id number] Y Date: 11/12/2024 12:14 Dictated By: Madie Long M.D. Signed By: 11/12/24 1217 DD/ 1214 TD/TT: Net Solutions Architect: [facility] Radiology, Radiologist, MD - 11/12/2024 [place] [address] Ultrasound Report Signed Patient: JANINA MARTEL MR#: [id number] : 1990 Acct:[id number] Age/Sex: 34 / F ADM Date: 11/12/24 Loc: [facility] 254-[address]: Sammie Higginbotham D.O. Ordering Physician: Sammie Higginbotham D.O. Date of Service: 11/12/24 Procedure(s): US OB BPP w non-stress Accession Number(s): [id number] cc: Sammie Higginbotham D.O.; Physician,Non-Staff [place] [address] Patient Name: JANINA MARTEL MRN: [id number] date: 1990 Sex: F Assigned Patient Location: [facility] Current Patient Location: [facility] Accession/Order Number: [id number] Exam Date: 11/12/2024 12:13 Report Date: 11/12/2024 [...] Long M.D. 11/12/2024 12:14 PM Dictation Location: [place] [address] Electronically authenticated by: [id number] Y Date: 11/12/2024 12:14 Dictated By: Madie Long M.D. Signed By: 11/12/24 1217 DD/ 1214 TD/TT: Net Solutions Architect: [facility] [employer] Radiology Study observation (narrative) [facility] US OB BPP W NON-STRESS Ordered By: Radiologist Radiology on 11-12-2024 [facility] [employer] Online Scheduling e Work Phone: US OB FOLLOW UP [...] PHD at 30-Oct-2024 11:19:03 PM [facility] Normal Not Available Comment on above: Order Comment: US OB SCAN FOR GROWTH Estimated Date of Delivery: 01/06/25 Gestational Age as of 10/01/2024: 26w1d Urinalysis macro (dipstick) panel (U)on 10-30-2024 Bilirubin, UA Negative Negative - 4(70) +++ mg/dL [facility] Blood, UA Negative Negative - 50 Dario/mcL [facility] Clarity, UA Clear [facility] re Color, UA Yellow [facility] Glucose, UA Negative Negative - 1999(110) ++++ mg/dL [facility] Interpretation and review of laboratory results Abnormal [facility] Healthca re Ketones, UA Negative Negative - 160(16) ++++ mg/dL [facility] Leukocytes, UA Positive Negative - 500+++ Oksana/mcL [facility] Comment on above: small Nitrite, UA Negative Negative - Positive [facility] pH, UA 7 5 - 9 [facility] Healthcar e Protein, UA Negative Negative - 1999(20) ++++ mg/dL [facility] Spec Grav, UA 1.01 1 - 1.03 [facility] Urobilinogen, UA 0.2 0.2 - 12 mg/dL [facility] Health[facility] Urinalysis macro (dipstick) panel (U)on 09-02-2024 Bilirubin, UA Negative Negative - 4(70) +++ mg/dL [facility] Blood, UA Negative Negative - 50 Dario/mcL [facility] Clarity, UA Clear [facility] re Color, UA Yellow [facility] Glucose, UA Negative Negative - 1999(110) ++++ mg/dL [facility] Interpretation and review of laboratory results Abnormal [facility] re Ketones, UA Negative Negative - 160(16) ++++ mg/dL [facility] Leukocytes, UA Positive Negative - 500+++ Oksana/mcL [facility] Comment on above: Large Nitrite, UA Negative Negative - Positive [facility] pH, UA 7 5 - 9 [facility] [employer] Scheduling e Protein, UA Negative Negative - 1999(20) ++++ mg/dL [facility] Spec Grav, UA 1.01 1 - 1.03 [facility] Urobilinogen, UA 0.2 0.2 - 12 mg/dL [facility] US OB 14+ WEEKS ANATOMY [...] II, MD, PHD at 22-Aug-2024 08:46:17 AM [facility] Normal Not Available Comment on above: Order Comment: US OB ANATOMY SINGLE W US OB CERVICAL LENGTH Estimated Date of Delivery: 01/06/25 Gestational Age as of 08/05/2024: 18w0d IGP,APTIMA HPV,AGE GDLNon AGE GDLN ACOG TESTING Note . [facility] Comment on above: TESTS RESULT FLAG UN ITS REF RANGE LAB Clinician Provided Cytology Information Source.............Cervix Other.............. No. of containers..01 ThinPrep Vial Age Algo ACOG Maria Antonia... 30-65 FLAG LEGEND: L-Low Normal,H-High Normal,LL-Alert Low,HH-Alert High <-Panic Low,>-Panic High,A-Abnormal,AA-Critical Abnormal Performed at: 01 =[address] [address] Asha Garza MD, HPV APTIMA Negative Negative [facility] Comment on above: This nucleic acid am plification test detects fourteen high- risk HPV types (16,18,31,33,35,39,45,51,52,56,58,59,66,68) without differentiation. Performed at: =[address] [id number] Television Installer Helper: Asha Garza MD, Phone: [phone] Performed at: [address] [id number] Television Installer Helper: Asha Garza MD, Phone: [phone] IGP, APTIMA HPV, RFX 16/18,45 Note . [facility] Comment on above: TESTS RESULT FLAG UN ITS REF RANGE LAB DIAGNOSIS: 02 NEGATIVE FOR INTRAEPITHELIAL LESION OR MALIGNANCY. Specimen adequacy: 02 Satisfactory for evaluation. Endocervical and/or squamous metaplastic cells (endocervical component) are present. Performed by: 02 Jojo Pablo, Metal Lather (ASCP) . 02 Note: Note 02 The [...] <-Panic Low,>-Panic High,A-Abnormal,AA-Critical Abnormal Performed at: [address] [address] Asha Garza MD, SPATULA-ALONE CERVIX [facility] Healthcar e RECURRENT VAGINITIS (HTRX)on 08-07-2024 ATOPOBIUM VAGINAE 0 [facility] ATOPOBIUM VAGINAE Not detected [facility] BVAB 2,3 (BACTERIAL VAGINOSIS ASSOCIATED BACTERIA 2, 3); MOBILUNCUS SPP 0 [facility] BVAB 2,3 (BACTERIAL VAGINOSIS ASSOCIATED BACTERIA 2, 3); MOBILUNCUS SPP Not detected [facility] Healthcare [place] ALBICANS, PARAPSILOSIS, TROPICALIS 0 [facility] [place] ALBICANS, PARAPSILOSIS, TROPICALIS Not detected [facility] [place] GLABRATA 0 [facility] a lthcare [place] GLABRATA Not detected [facility] [facility]USEI [facility] EL[place]IA KRUSEI Not detected [facility] CHLAMYDIA TRACHOMATIS 0 [facility] CHLAMYDIA TRACHOMATIS Not detected [facility] GARDNERELLA VAGINALIS 0 [facility] GARDNERELLA VAGINALIS Not detected [facility] MEGASPHAERA (TYPES 1, 2) 0 [facility] MEGASPHAERA (TYPES 1, 2) Not detected [facility] MYCOPLASMA GENITALIUM 0 [facility] MYCOPLASMA GENITALIUM Not detected [facility] NEISSERIA GONORRHOEAE 0 [facility] NEISSERIA GONORRHOEAE Not detected [facility] TRICHOMONAS VAGINALIS 0 [facility] TRICHOMONAS VAGINALIS Not detected [facility] GLUCOSE TOLERANCE 3 HOURon 0 08-03-2024 GLUCOSE TOLERANCE 3 HOUR mg/dL [facility] Comment on above: GLU FAST 94 (<95) Co l: 08/03/24 0809 GLU 1HR 163 (<180) Col: 08/03/24 0912 GLU 2HR 114 (<155) Col: 08/03/24 1012 GLU 3HR 109 (<140) Col: 08/03/24 1112 [facility] Healthcar e GLUCOSE 1 HOURon 07-27-2024 Glucose [Mass/Vol] 151 mg/dL High NINF - 13 0 mg/dL [facility] Interpretation and review of laboratory results Abnormal [facility] Healthcar e ALL CBC WITH AUTO DIFFon BASOPHILS ABSOLUTE AUTO 0 [facility] Basophils/100 WBC (Bld) 0.3 % 0.2 - 2.0 % [facility] Eosinophils/100 WBC (Bld) 0.2 % Low 0.9 - 7.0 % [facility] Erythrocyte distribution width (RBC) [Ratio] 13.5 % 11.0 - 15.0 % [facility] Hematocrit (Bld) [Volume fraction] 36 % 36.0 - 48.0 % [facility] Hemoglobin (Bld) [Mass/Vol] 12.5 g/dL 12.0 - 16.0 g/dL [facility] IMMATURE GRANULOCYTES ABS AUTO 0.05 High [facility] Immature granulocytes/100 WBC (Bld) 0.4 % 0.0 - 0.5 % [facility] Interpretation and review of laboratory results Abnormal [facility] re LYMPHOCYTES ABSOLUTE AUTO 2.1 [facility] Lymphocytes/100 WBC (Bld) 16 % Low 20.5 - 60.0 % [facility] MCH (RBC) [Entitic mass] 30.1 pg 26.7 - 34.0 pg [facility] MCHC (RBC) [Mass/Vol] 34.7 g/dL 29.9 - 35.2 g/dL [facility] MCV (RBC) [Entitic vol] 86.7 fL 81.0 - 99.0 fL [facility] MONOCYTES ABSOLUTE AUTO 0.9 High [facility] Monocytes/100 WBC (Bld) 6.6 % 1.7 - 12.0 % [facility] NEUTROPHILS ABSOLUTE AUTO 9.9 High [facility] Neutrophils/100 WBC (Bld) 76.5 % High 43.0 - 75.0 % [facility] Platelet mean volume (Bld) [Entitic vol] 10.7 fL 9.5 - 13.5 fL [facility] TBH EO # 0 [facility] Healthcar e TBH PLT 276 [facility] Healthcar e TB RBC 4.15 Low [facility] Health[facility] e TBH WBC 12.9 High [facility] Healthcar e [facility] Healthcar e HCG ( test) Ql (U)o n 06-07-2024 Interpretation and review of laboratory results Abnormal [facility] re Preg Test, Ur Positive Negative [facility] US OB TRANSVAGINALon 025 US OB [...] x 4.7 cm (8 weeks, 3 days). [place] rump length is 2.5 cm (9 weeks, [...] UA Negative Negative - 4(70) +++ mg/dL [facility] Blood, UA Negative Negative - 50 Dario/mcL [facility] Clarity, UA Clear [facility] Live[employer] re Color, UA Yellow [facility] Glucose, UA Negative Negative - 1999(110) ++++ mg/dL [facility] Interpretation and review of laboratory results Normal [facility] re Ketones, UA Negative Negative - 160(16) ++++ mg/dL [facility] Leukocytes, UA Negative Negative - 500+++ Oksana/mcL [facility] Nitrite, UA Negative Negative - Positive [facility] pH, UA 5.5 5 - 9 [facility] Protein, UA Negative Negative - 1999(20) ++++ mg/dL [facility] Spec Grav, UA 1.015 1 - 1.03 [facility] Urobilinogen, UA 0.2 0.2 - 12 mg/dL [facility] HealthSmartFocus e TBH PREG QUANT HCGon 04-05- 024 HCG QUANTITATIVE <1 mIU/mL [facility] Comment on above: 5-50 0.2-1 WEEK 50-500 1-2 WEEKS 100-5,000 2-3 WEEKS 500-10,000 3-4 WEEKS 1,000-50,000 4-5 WEEKS 10,000-100,000 5-6 WEEKS 15,000-200,000 6-8 WEEKS 10,000-100,000 2-3 [facility] TBH PREG QUANT HCGon 03-29- 024 HCG QUANTITATIVE 15 mIU/mL [facility] Comment on above: 5-50 0.2-1 WEEK 50-500 1-2 WEEKS 100-5,000 2-3 WEEKS 500-10,000 3-4 WEEKS 1,000-50,000 4-5 WEEKS 10,000-100,000 5-6 WEEKS 15,000-200,000 6-8 WEEKS 10,000-100,000 2-3 MONTHS [facility] TBH PREG QUANT HCGon 024 HCG QUANTITATIVE 22 mIU/mL [facility] Hea lthcare Comment on above: 5-50 0.2-1 WEEK 50-500 1-2 WEEKS 100-5,000 2-3 WEEKS 500-10,000 3-4 WEEKS 1,000-50,000 4-5 WEEKS 10,000-100,000 5-6 WEEKS 15,000-200,000 6-8 WEEKS 10,000-100,000 2-3 MONTHS [facility] TBH PREG QUANT HCGon 024 HCG QUANTITATIVE 32 mIU/mL [facility] ltare Comment on above: 5-50 0.2-1 WEEK 50-500 1-2 WEEKS 100-5,000 2-3 WEEKS 500-10,000 3-4 WEEKS 1,000-50,000 4-5 WEEKS 10,000-100,000 5-6 WEEKS 15,000-200,000 6-8 WEEKS 10,000-100,000 2-3 MONTHS [facility] Health[facility] e PAP ACOG PANEL 2: 21 to 29on 09-22-2021 . . Normal [facility] Comment on above: Performed By: #### [id number] #### [facility] Laboratory [address] [place] [address] Dr. Yariel Huynh Age Gdln ACOG Testing - [facility] Comment on above: Performed By: #### [id number] #### [facility] [address] [place] [address] [address] Yariel Huynh DIAGNOSIS: Comment Normal [facility] Comment on above: Result Comment: NEGA TIVE FOR INTRAEPITHELIAL LESION OR MALIGNANCY. Performed By: #### [id number] #### [facility] [address] [place] [address] [address] Yariel Huynh Methodology: Comment [facility] Comment on above: Result Comment: This liquid based ThinPrep(R) pap test was screened with the use of an image guided system. Performed By: #### 4 [id number] #### [facility] [address] [place] [address] [address] Yariel Huynh Note: Comment [facility] Comment on above: Result Comment: The Pap smear is a screening test designed to aid in the detection of premalignant and malignant conditions of the uterine cervix. It is not a diagnostic procedure and should not be used as the sole means of detecting cervical cancer. Both false-positive and false-negative reports do occur. . Performed By: #### [id number] #### [facility] [address] [place] [address] Dr. Yariel Huynh Performed by: Comment Normal [facility] Comment on above: Result Comment: Carole Lee Metal Lather (ASCP) Performed By: #### 4 [id number] #### [facility] [address] [place] [address] Dr. Yariel Huynh Reflex Criteria: Comment Normal [facility] Comment on above: Result Comment: The HPV DNA reflex criteria were not met with this specimen result therefore, no HPV testing was performed. . Performed By: #### 4 [id number] #### [facility] [address] [place] [address] Dr. Yariel Huynh Specimen adequacy: Comment Normal [facility] Comment on above: Result Comment: Sati sfactory for evaluation. Endocervical and/or squamous metaplastic cells (endocervical component) are present. Performed By: #### 4 [id number] #### [facility] [address] [place] [address] Dr. Yariel Huynh RUBELLA AB IGGon 12-10-2020 Rubella Antibodies, IgG 1.46 index Normal Immune >0.[address] [facility] Comment on above: Result Comment: Non- immune <0.90 Equivocal 0.90 - 0.99 Immune >0.99 Performed By: #### R UBIGG #### [facility] [address] [place] [address] Clyde Ramachandran CBC AUTO DIFFon 12-09-2020 BASO # 0.1 103/ul Normal 0.0-0.[address] [facility] Comment on above: Performed By: #### 4 [id number] #### [facility] [address] [place] [address] Dr. Yariel Huynh Basophils/100 WBC (Bld) 0.3 % Normal 0.2-2.[address] [facility] Comment on above: Performed By: #### 4 [id number] #### [facility] [address] [place] [address] Dr. Yariel Huynh EO # 0.0 103/ul Normal 0.0-0.[address] [facility] Comment on above: Performed By: #### 4 [id number] #### [facility] [address] [place] [address] Dr. Yariel Huynh Eosinophils/100 WBC (Bld) 0.1 % Critically low 0.9-7.[address] [facility] Comment on above: Performed By: #### [id number] #### [facility] [address] [place] [address] Dr. Yariel Huynh Erythrocyte distribution width (RBC) [Ratio] 13.9 % Normal 11.0-15.[address] [facility] Comment on above: Performed By: #### 4 [id number] #### [facility] [address] [place] [address] Dr. Yariel Huynh Hematocrit (Bld) [Volume fraction] 29.5 % Critically low 36.0-48.[address] [facility] Comment on above: Performed By: #### 4 [id number] #### [facility] [address] [place] [address] Dr. Yariel Huynh Hemoglobin (Bld) [Mass/Vol] 9.3 g/dL Critically low 12.0-16.[address] [facility] Comment on above: Performed By: #### 4 [id number] #### [facility] [address] [place] [address] Dr. Yariel Huynh IG # 0.08 10e3/ul Critically high 0.00-0.03 [facility] Comment on above: Performed By: #### 4 [id number] #### [facility] [facility] [address] [place] [address] Dr. Yariel Huynh IG % 0.5 % Normal 0.0-0.[address] [facility] Comment on above: Performed By: #### [id number] #### [facility] [address] [place] [address] Dr. Yariel Huynh LYMPH # 1.7 103/ul Normal 1.2-3.[address] [facility] Comment on above: Performed By: #### 4 [id number] #### [facility] [address] [place] [address] Dr. Yariel Huynh Lymphocytes/100 WBC (Bld) 10.8 % Critically low 20.5-60.[address] [facility] Comment on above: Performed By: #### 4 [id number] #### [facility] [address] [place] [address] Dr. Yariel Huynh MANUAL DIFF REQ NO Normal [facility] Comment on above: Performed By: #### 4 [id number] #### [facility] [address] [place] [address] Dr. Yariel Huynh MCH (RBC) [Entitic mass] 26.2 pg Critically low 26.7-34.[address] [facility] Comment on above: Performed By: #### 4 [id number] #### [facility] [address] [place] [address] Dr. Yariel Huynh MCHC (RBC) [Mass/Vol] 31.5 g/dL Normal 29.9-35.[address] [facility] Comment on above: Performed By: #### 4 [id number] #### [facility] [address] [place] [address] Dr. Yariel Huynh MCV (RBC) [Entitic vol] 83.1 fL Normal 81.0-99.[address] [facility] Comment on above: Performed By: #### 4 [id number] #### [facility] [address] [place] [address] Dr. aYriel Huynh MONO # 0.8 103/ul Normal 0.3-0.[address] [facility] Comment on above: Performed By: #### 4 [id number] #### [facility] [address] [place] [address] Dr. Yariel Huynh Monocytes/100 WBC (Bld) 5.2 % Normal 1.7-12.[address] [facility] Comment on above: Performed By: #### 4 [id number] #### [facility] [address] [place] [address] Dr. Yariel Huynh NEUT # 12.8 103/ul Critically high 1.4-6.5 [facility] Comment on above: Performed By: #### 4 [id number] #### [facility] [address] [address] [address] Yariel Huynh Neutrophils/100 WBC (Bld) 83.1 % Critically high 43.0-75.0 [facility] Comment on above: Performed By: #### 4 [id number] #### [facility] [address] [place] [address] Dr. Yariel Huynh Platelet mean volume (Bld) [Entitic vol] 12.6 fL Normal 9.5-13.5 [facility] Comment on above: Performed By: #### 4 [id number] #### [facility] [address] [place] [address] Dr. Yariel Huynh PLT 203 103/ul Normal 150-450 [facility] Comment on above: Performed By: #### 4 [id number] #### [facility] [address] [place] [address] Dr. Yariel Huynh RBC 3.55 106/ul Critically low 4.20-5.40 [facility] Comment on above: Performed By: #### 4 [id number] #### [facility] [address] [place] [address] Dr. Yariel Huynh WBC 15.4 103/ul Critically high 4.0-11.0 [facility] Comment on above: Performed By: #### 4 [id number] #### [facility] [address] [place] [address] Dr. Yariel Huynh ASYMPTOMATIC COVID-19 ANTIGE Non 12-08-2020 EUA Statement SEE BELOW Normal [facility] Comment on above: Result Comment: [...] is revoked sooner. Performed By: #### 4 [id number] #### [facility] [address] [place] [address] Dr. Yariel Huynh SARS-CoV-2 (COVID-19) RNA ESTEBAN+probe Ql (Unsp spec) Negative Normal NEGATIVE [facility] Comment on above: Result Comment: Nega tive results are presumptive. They do not preclude infection and should not be used as the sole basis for treatment decisions. Additional confirmatory testing by a molecular method should be considered. Performed By: #### 4 [id number] #### [facility] [address] [place] [address] Dr. Yariel Huynh BUNon 12-08-2020 Urea nitrogen [Mass/Vol] 15.0 mg/dL Normal 7.0-17.[address] [facility] Comment on above: Performed By: #### 4 [id number] #### [facility] [address] [place] [address] Dr. Yariel Huynh CBC AUTO DIFFon 12-08-2020 BASO # 0.0 103/ul Normal 0.0-0.[address] [facility] Comment on above: Performed By: #### 4 [id number] #### [facility] [address] [place] [address] Dr. Yariel Huynh Basophils/100 WBC (Bld) 0.3 % Normal 0.2-2.[address] [facility] Comment on above: Performed By: #### 4 [id number] #### [facility] [address] [place] [address] Dr. Yariel Huynh EO # 0.0 103/ul Normal 0.0-0.[address] [facility] Comment on above: Performed By: #### 4 [id number] #### [facility] [address] [place] [address] Dr. Yariel Huynh Eosinophils/100 WBC (Bld) 0.4 % Critically low 0.9-7.[address] [facility] Comment on above: Performed By: #### 4 [id number] #### [facility] [address] [place] [address] Dr. Yariel Huynh Erythrocyte distribution width (RBC) [Ratio] 13.8 % Normal 11.0-15.[address] [facility] Comment on above: Performed By: #### 4 [id number] #### [facility] [address] [place] [address] Dr. Yariel Huynh Hematocrit (Bld) [Volume fraction] 31.8 % Critically low 36.0-48.[address] [facility] Comment on above: Performed By: #### 4 [id number] #### [facility] [address] [place] [address] Dr. Yariel Huynh Hemoglobin (Bld) [Mass/Vol] 10.1 g/dL Critically low 12.0-16.[address] [facility] Comment on above: Performed By: #### 4 [id number] #### [facility] [address] [place] [address] Dr. Yariel Huynh IG # 0.07 10e3/ul Critically high 0.00-0.03 [facility] Comment on above: Performed By: #### 4 [id number] #### [facility] [address] [place] [address] Dr. Yariel Huynh IG % 0.7 % Critically high 0.0-0.5 [facility] Comment on above: Performed By: #### 4 [id number] #### [facility] [address] [place] [address] Dr. Yariel Huynh LYMPH # 2.3 103/ul Normal 1.2-3.8 [facility] Comment on above: Performed By: #### 4 [id number] #### [facility] [address] [place] [address] Dr. Yariel Huynh Lymphocytes/100 WBC (Bld) 22.7 % Normal 20.5-60.[address] [facility] Comment on above: Performed By: #### 4 [id number] #### [facility] [address] [place] [address] Dr. Yariel Huynh MANUAL DIFF REQ NO Normal [facility] Comment on above: Performed By: #### 4 [id number] #### [facility] [address] [place] [address] Dr. Yariel Huynh MCH (RBC) [Entitic mass] 26.7 pg Normal 26.7-34.0 [facility] Comment on above: Performed By: #### 4 [id number] #### [facility] [address] [place] [address] Dr. Yariel Huynh MCHC (RBC) [Mass/Vol] 31.8 g/dL Normal 29.9-35.2 [facility] Comment on above: Performed By: #### 4 [id number] #### [facility] [address] [place] [address] Dr. Yariel Huynh MCV (RBC) [Entitic vol] 84.1 fL Normal 81.0-99.0 [facility] Comment on above: Performed By: #### 4 [id number] #### [facility] [address] [place] [address] Dr. Yariel Huynh MONO # 0.6 103/ul Normal 0.3-0.8 [facility] Comment on above: Performed By: #### 4 [id number] #### [facility] [address] [place] [address] Dr. Yariel Huynh Monocytes/100 WBC (Bld) 6.3 % Normal 1.7-12.0 [facility] Comment on above: Performed By: #### 4 [id number] #### [facility] [address] [place] [address] Dr. Yariel Huynh NEUT # 7.0 103/ul Critically high 1.4-6.5 [facility] Comment on above: Performed By: #### 4 [id number] #### [facility] [address] [place] [address] Dr. Yariel Huynh Neutrophils/100 WBC (Bld) 69.6 % Normal 43.0-75.0 [facility] Comment on above: Performed By: #### 4 [id number] #### [facility] [address] [place] [address] Dr. Yariel Huynh Platelet mean volume (Bld) [Entitic vol] 12.9 fL Normal 9.5-13.[address] [facility] Comment on above: Performed By: #### 4 [id number] #### [facility] [address] [place] [address] Dr. Yariel Huynh PLT 193 103/ul Normal 150-450 [facility] Comment on above: Performed By: #### 4 [id number] #### [facility] [address] [place] [address] Dr. Yariel Huynh RBC 3.78 106/ul Critically low 4.20-5.40 [facility] Comment on above: Performed By: #### 4 [id number] #### [facility] [address] [place] [address] Dr. Yariel Huynh WBC 10.1 103/ul Normal 4.0-11.[address] [facility] Comment on above: Performed By: #### 4 [id number] #### [facility] [address] [place] [address] Dr. Yariel Huynh CREATININEon 12-08-2020 Creatinine [Mass/Vol] 0.80 mg/dL Normal 0.52-1.[address] [facility] Comment on above: Performed By: #### L DH, URIC, AST, ALT, BUN, CREA #### [facility] [address] [place] [address] Clyde Madie EGFR-AF [place] >60 Normal >=60 [facility] Comment on above: Performed By: #### L DH, URIC, AST, ALT, BUN, CREA #### [facility] [address] [place] [address] Clyde Madie EGFR-NON AF [place] >60 Normal >=60 [facility] Comment on above: Performed By: #### L DH, URIC, AST, ALT, BUN, CREA #### [facility] [address] [place] [address] Clyde Ramachandran DRUG SCREEN RAPID (URINE)on 12-08-2020 AMP Negative Normal NEGATIVE [facility] Comment on above: Performed By: #### 4 [id number] #### [facility] [address] [place] [address] Dr. Yariel Huynh BAR Negative Normal NEGATIVE [facility] Comment on above: Performed By: #### 4 [id number] #### [facility] [address] [place] [address] Dr. Yariel Huynh BUP Negative Normal NEGATIVE [facility] Comment on above: Performed By: #### 4 [id number] #### [facility] [address] [place] [address] Dr. Yariel Huynh BZO Negative Normal NEGATIVE [facility] Comment on above: Performed By: #### 4 [id number] #### [facility] [address] [place] [address] Dr. Yariel Huynh ROSA Negative Normal NEGATIVE [facility] Comment on above: Performed By: #### 4 [id number] #### [facility] [address] [place] [address] Dr. Yariel Huynh CUT-OFFS SEE BELOW Normal [facility] Comment on above: Result Comment: AMP (Amphetamine): 500ng/mL, BAR (Barbituates): 200 ng/mL, BZO (Benzodiazepines): 150 ng/mL, BUP (Buprenorphine): 10 ng/mL, ROSA (Cocaine): 150 ng/mL, mAMP (Methamphetamine): 500 ng/mL, MTD (Methadone): 200 ng/mL, OPI (Opiates): 100 ng/mL, OXY (Oxycodone): 100 ng/mL, PCP (Phencyclidine): 25 ng/mL, PPX (Propoxyphene): 300 ng/mL, THC (Cannabinoids): 50 ng/mL, TCA (Trycyclic Antidepressants): 300 ng/mL Performed By: #### 4 [id number] #### [facility] [address] [place] [address] Dr. Yariel Huynh DRUG CUT HEADER DRUG CLASS TEST SYSTEM CUT-OFF CONCENTRATIONS ARE FOLLOWS: Normal [facility] Comment on above: Performed By: #### 4 [id number] #### [facility] [address] [place] [address] Dr. Yariel Huynh mAMP Negative Normal NEGATIVE [facility] Comment on above: Performed By: #### 4 [id number] #### [facility] [address] [place] [address] Dr. Yariel Huynh MTD Negative Normal NEGATIVE [facility] Comment on above: Performed By: #### 4 [id number] #### [facility] [address] [place] [address] Dr. Yariel Huynh OPI Negative Normal NEGATIVE [facility] Comment on above: Performed By: #### 4 [id number] #### [facility] [address] [place] [address] Dr. Yariel Huynh OXY Negative Normal NEGATIVE [facility] Comment on above: Performed By: #### 4 [id number] #### [facility] [address] [place] [address] Dr. Yariel Huynh PCP Negative Normal NEGATIVE [facility] Comment on above: Performed By: #### 4 [id number] #### [facility] [address] [place] [address] Dr. Yariel Huynh PPX Negative Normal NEGATIVE [facility] Comment on above: Performed By: #### 4 [id number] #### [facility] [address] [place] [address] Dr. Yariel Huynh TCA Negative Normal NEGATIVE [facility] Comment on above: Performed By: #### 4 [id number] #### [facility] [address] [place] [address] Dr. Yariel Huynh THC Negative Normal NEGATIVE [facility] Comment on above: Performed By: #### 4 [id number] #### [facility] [address] [place] [address] Dr. Yariel Huynh LDHon 12-08-2020 LDH 163 U/L Normal 122-[address] [facility] Comment on above: Performed By: #### L DH, URIC, AST, ALT, BUN, CREA #### [facility] [address] [place] [address] Clyde Delgadillomitchell Arango 12-08-2020 AST [Catalytic activity/Vol] 15 U/L Normal 14-[address] [facility] Comment on above: Performed By: #### L DH, URIC, AST, ALT, BUN, CREA #### [facility] [address] [place], [place] [address] Clyde Ramachandran SGPTon 12-08-2020 ALT [Catalytic activity/Vol] 12 U/L Normal 9-52 [facility] Comment on above: Performed By: #### L DH, URIC, AST, ALT, BUN, CREA #### [facility] [address] [place], [place] [address] Clyde Ramachandran TYPE AND SCREENon 12-08-2020 TYPE AND SCREEN Negative Normal [facility] Comment on above: Performed By: #### T NS #### [facility] [address] [place], [place] [address] Clyde Ramachandran URIC ACID SERUMon 12-08-2020 Urate [Mass/Vol] 5.0 mg/dL Normal 2.5-6.2 [facility] Comment on above: Performed By: #### L DH, URIC, AST, ALT, BUN, CREA #### [facility] [address] [place], [place] [address] Clyde Ramachandran US PREG BIOPHY W NON [...] [facility] US PREG BIOPHY W NON STRESSo n [...] Date: 2020-12-01 10:[address] [facility] Vital Signs Date Time Vital Sign Value Performing Clinician Roxann torres 11-27-2024 11:41-0400 Body weight 78.47 kg Sammie Neftaly DO Work Phone: [facility] 11-27-2024 11:41-0400 Diastolic blood pressure 86 mm[Hg] Sammie Neftaly DO Work Phone: [facility] 11-27-2024 11:41-0400 Systolic blood pressure 140 mm[Hg] Sammie Neftaly DO Work Phone: [facility] 11-13-2024 10:28-0400 Body weight 78.65 kg Diya GEE Work Phone: [facility] 11-13-2024 10:28-0400 Diastolic blood pressure 78 mm[Hg] Diya GEE Work Phone: [facility] 11-13-2024 10:28-0400 Systolic blood pressure 130 mm[Hg] Diya GEE Work Phone: [facility] 10-30-2024 10:31-0400 Body weight 78.53 kg Sammie Neftaly DO Work Phone: [facility] 10-30-2024 10:31-0400 Diastolic blood pressure 78 mm[Hg] Sammie Neftaly DO Work Phone: [facility] 10-30-2024 10:31-0400 Systolic blood pressure 120 mm[Hg] Sammie Neftaly DO Work Phone: [facility] 10-01-2024 09:38-0400 Body weight 75.48 kg Lin Sellers NP Work Phone: [facility] 10-01-2024 09:38-0400 Diastolic blood pressure 76 mm[Hg] Lin Verito [employer] Work Phone: [facility] 10-01-2024 09:38-0400 Systolic blood pressure 120 mm[Hg] Lin Rizzoerly [employer]ILITY MECH[employer]IC Work Phone: [facility] 09-02-2024 09:46-0400 Body weight 71.85 kg Sammie Neftaly DO Work Phone: [facility] 09-02-2024 09:46-0400 Diastolic blood pressure 82 mm[Hg] Sammie Neftaly DO Work Phone: [facility] 09-02-2024 09:46-0400 Systolic blood pressure 122 mm[Hg] Sammie Neftaly DO Work Phone: [facility] 08-05-2024 09:52-0500 Body weight 68.49 kg Diya GEE Work Phone: [facility] 08-05-2024 09:52-0500 Diastolic blood pressure 78 mm[Hg] Diya GEE Work Phone: [facility] 08-05-2024 09:52-0500 Systolic blood pressure 124 mm[Hg] Diya GEE Work Phone: [facility] 07-08-2024 09:52-0500 Body weight 67.31 kg Sammie Neftaly DO Work Phone: [facility] 07-08-2024 09:52-0500 Diastolic blood pressure 70 mm[Hg] Sammie Neftaly DO Work Phone: [facility] 07-08-2024 09:52-0500 Systolic blood pressure 118 mm[Hg] Sammie Neftaly DO Work Phone: [facility] 06-07-2024 09:47-0500 Body weight 66.22 kg Noms Nurse [facility] 06-07-2024 09:47-0500 Diastolic blood pressure 72 mm[Hg] Noms Nurse [facility] 06-07-2024 09:47-0500 Systolic blood pressure 122 mm[Hg] [...] Phone: [facility] Comment on above: Third trimester preg champ ([facility]); 34 weeks gestation of ([facility]); Hypertension affecting in third trimester ([facility]); Gestational diabetes mellitus (GDM), antepartum, gestational diabetes method of control unspecified ([facility]); H/O pre-eclampsia in prior , currently ([facility]) Start: 11-27-2024 End: 11-27-2024 ambulatory SAMMIE NEFTALY Not Available Start: 11-25-2024 End: 11-25-2024 Clinisync Result Encounter Sammie Neftaly DO Work Phone: [facility] External Department Unsolicited Start: 11-25-2024 End: 11-25-2024 [...] [facility] Start: 11-13-2024 End: 11-13-2024 Clinisync Result Encounter Sammie Neftaly DO Work Phone: [facility] External Department Unsolicited Start: 11-13-2024 End: 11-13-2024 Office outpatient visit 15 minutes Diya GEE Work Phone: [facility] Comment on above: Hypertension affecti ng in third trimester (Primary Dx); 32 weeks gestation of ; Third trimester Start: 11-13-2024 End: 11-13-2024 ambulatory DIYA ROBLES Not Available Start: 11-12-2024 End: 11-12-2024 Clinisync Result Encounter Sammie Neftaly DO Work Phone: [facility] External Department Unsolicited Start: 11-12-2024 End: 11-12-2024 Clinisync Result Encounter Sammie Neftaly DO Work Phone: [facility] External Department Unsolicited Start: 10-30-2024 End: [...] 10-01-2024 End: 10-01-2024 Bamboo flowsheet Lin Sellers NP Work Phone: [facility] Start: 10-01-2024 End: 10-01-2024 Bamboo flowsheet Lin Sellers NP Work Phone: [facility] Start: 10-01-2024 End: 10-01-2024 Office outpatient visit 15 minutes Lin Sellers NP Work Phone: [facility] Comment on above: Second trimester pre gnancy; size inconsistent with dates; H/O pre-eclampsia in prior , currently Start: 10-01-2024 End: 10-01-2024 ambulatory LIN SELLERS Not Available Start: 09-02-2024 End: 09-02-2024 Bamboo flowsheet Sammie Neftaly DO Work Phone: [facility] Start: 09-02-2024 End: 09-02-2024 Bamboo flowsheet Sammie Neftaly DO Work Phone: [facility] Start: 09-02-2024 End: 09-02-2024 Office outpatient visit 15 minutes Sammie Neftaly DO Work Phone: [facility] Comment on above: Second trimester pre gnancy; 22 weeks gestation of ; Diabetes mellitus screening Start: 09-02-2024 End: 09-02-2024 ambulatory SAMMIE NEFTALY Not Available Start: 08-21-2024 End: 08-21-2024 ambulatory SAMMIE NEFTALY Not Available Start: 08-05-2024 End: 08-05-2024 Bamboo flowsheet Diya GEE Work Phone: [facility] Start: 08-05-2024 End: 08-08-2024 Bamboo flowsheet Diya GEE Work Phone: [facility] Start: 08-05-2024 End: 08-08-2024 Clinisync Result Encounter Diya GEE Work Phone: [facility] External Department Unsolicited Start: 08-05-2024 End: 08-07-2024 External Result Encounter Diya GEE Work Phone: [facility] External Department Unsolicited Start: 08-05-2024 End: 08-05-2024 Office outpatient visit 15 minutes Diya GEE Work Phone: [facility] Comment on above: Well woman exam with routine gynecological exam; Exposure to STD; Second trimester ; 18 weeks gestation of ; Need for maternal serum alpha-protein (MSAFP) screening; Screening, , for anatomic survey Start: 08-05-2024 End: 08-05-2024 Patient encounter procedure Diya GEE Work Phone: [facility] Start: 08-05-2024 End: 08-05-2024 ambulatory DIYA ROBLES [...] 12-04-2020 End: 12-04-[address] KAYLIE HENDERSON Facility: Start: 12-01-2020 End: 12-01-2020 ambulatory NONE LISTED [...] Perineum Skin , External Approach DR SAMMIE HIGGINBOTHMA Plan of Treatment Date Care Activity Detail Author Start: 08-05-2029 Screening for malign ant neoplasm of cervix [facility] Start: 03-15-2028 Screening for malign ant neoplasm of cervix [facility] Start: 02-03-2025 Influenza vaccination Influenz a Vaccine (Season Ended) [facility] Start: 12-11-2024 End: 12-11-2024 Patient encounter procedure 12/11/2024 11:20 AM EDT Routine [facility] [address] [place] [id number] Sammie Higginbotham, DO [address] [place] [address] [facility] Start: 11-27-2024 End: 11-27-2024 Patient encounter procedure [facility] Comment on above: Arrived Start: 11-13-2024 [...] control unspecified Expected: 10/30/2024 (Approximate), Expires: 05/02/2025 [facility] Work Phone: Comment on above: Expected: 10/30/2024 (Approximate), Expires: 05/02/2025 Start: 10-01-2024 End: 01-31-2025 US for US OB follow up transabdominal approach Imaging Routine H/O pre-eclampsia in prior , currently Expected: 10/01/2024, Expires: 01/31/2025 [facility] Work Phone: Comment on above: Expected: 10/01/2024 , Expires: 01/31/2025 Start: 10-01-2024 End: 10-01-2024 Patient encounter procedure [facility] Comment on above: Arrived Start: 09-02-2024 End: 09-02-2025 CBC panel - Blood by Automated count CBC Lab Routine Diabetes mellitus screening Expected: 09/02/2024 (Approximate), Expires: 09/02/2025 [facility] Work Phone: Comment on above: Expected: 09/02/2024 (Approximate), Expires: 09/02/2025 Start: 09-02-2024 End: 09-02-2025 Measurement of glucose 1 hour after glucose challenge for glucose tolerance test Glucose tolerance, 1 hour Lab Routine Diabetes mellitus screening Expected: 09/02/2024 (Approximate), Expires: 09/02/2025 [facility] Comment on above: Expected: 09/02/2024 (Approximate), Expires: 09/02/2025 Start: 09-02-2024 End: 09-02-2024 Patient encounter procedure [facility] Comment on above: Arrived Start: 08-21-2024 End: 08-21-2024 Professional / ancillary services management 08/21/2024 9:00 AM EDT Ancillary Procedure [facility] [address] [address] [facility] Start: 08-05-2024 End: 09-05-2024 Alpha fetoprotein, maternal Alpha fetoprotein, maternal Lab Routine Need for maternal serum alpha-protein (MSAFP) screening Expected: 08/05/2024 (Approximate), Expires: 09/05/2024 [facility] Comment on above: Expected: 08/05/2024 (Approximate), Expires: 09/05/2024 Start: 08-05-2024 End: 08-05-2025 US for US OB 14+ weeks anatomy scan Imaging Routine Screening, , for anatomic survey Expected: 08/05/2024 (Approximate), Expires: 08/05/2025 [facility] Comment on above: Expected: 08/05/2024 (Approximate), Expires: 08/05/2025 Start: 08-05-2024 End: 08-05-2024 Patient encounter procedure [facility] Comment on above: Arrived Start: 07-08-2024 End: 07-08-2025 Measurement of glucose 1 hour after glucose challenge for glucose tolerance test Glucose tolerance, 1 hour Lab Routine Diabetes mellitus screening Expected: 07/08/2024 (Approximate), Expires: 07/08/2025 [facility] Work Phone: Comment on above: Expected: 07/08/2024 (Approximate), Expires: 07/08/2025 Start: 07-08-2024 End: 07-08-2024 Patient encounter procedure [facility] Comment on above: Arrived Start: 06-07-2024 End: 06-07-2025 ABO/Rh ABO/Rh Lab Routine Missed menses , unspecified gestational age Expected: 06/07/2024 (Approximate), Expires: 06/07/2025 [facility] Comment on above: Expected: 06/07/2024 (Approximate), Expires: 06/07/2025 Start: 06-07-2024 End: 06-07-2025 Blood type and Indirect antibody screen panel - Blood Type and screen Lab Routine Missed menses , unspecified gestational age Expected: 06/07/2024 (Approximate), Expires: 06/07/2025 [facility] Work Phone: Comment on above: Expected: 06/07/2024 (Approximate), Expires: 06/07/2025 Start: 06-07-2024 End: 06-07-2025 Drugs of abuse panel - Urine by Screen method Rapid drug screen, urine Lab Routine , unspecified gestational age Encounter for supervision of normal first in first trimester Expected: 06/07/2024 (Approximate), Expires: 06/07/2025 [facility] Comment on above: Expected: 06/07/2024 (Approximate), Expires: 06/07/2025 Start: 04-19-2024 End: 04-19-2024 ambulatory 04/19/2024 10:00 AM EST Initial [facility] [address] [address] [facility] Start: 04-19-2024 End: 04-19-2024 Professional / ancillary services management 04/19/2024 9:30 AM EST Ancillary Procedure [facility] [address] [place] [address] [place] [address] [facility] Start: 02-04-2024 Influenza vaccination Influenza Vacc ine (#1) [facility] Start: 2013 Screening for malign ant neoplasm of cervix Pap Smear [facility] Bacteria identified in Urine by Culture Urine culture Microbiology Routine Missed menses Ordered: 06/07/2024 [facility] Comment on above: Ordered: 06/07/2024 CBC W Auto Different ial panel - Blood CBC and differential Lab Routine Missed menses , unspecified gestational age Ordered: 06/07/2024 [facility] Comment on above: Ordered: 06/07/2024 CHLAMYDIA TRACHOMATI S (GENITO/STI) CHLAMYDIA TRACHOMATIS (GENITO/STI) Lab Routine Exposure to STD Ordered: 08/05/2024 [facility] Comment on above: Ordered: 08/05/2024 Cytology Cervical or vaginal smear or scraping study Pap Smear Pathology and Cytology Routine Well woman exam with routine gynecological exam Ordered: 08/05/2024 [facility] Comment on above: Ordered: 08/05/2024 Hemoglobin A1c/Hemoglobin.total in Blood Hemoglobin A1c Lab Routine Missed menses , unspecified gestational age Ordered: 06/07/2024 [facility] Comment on above: Ordered: 06/07/2024 Hepatitis B virus surface Ag [Presence] in Serum or Plasma by Immunoassay Hepatitis B surface antigen Lab Routine Missed menses , unspecified gestational age Ordered: 06/07/2024 [facility] Comment on above: Ordered: 06/07/2024 Hepatitis C virus Ab [Presence] in Serum or Plasma by Immunoassay Hepatitis C antibody Lab Routine Missed menses , unspecified gestational age Ordered: 06/07/2024 [facility] Comment on above: Ordered: 06/07/2024 HIV-1/HIV-2 antigen/antibody combination immunoassay HIV-1 and HIV-2 antibodies Lab Routine Missed menses , unspecified gestational age Ordered: 06/07/2024 [facility] Comment on above: Ordered: 06/07/2024 Human papilloma viru s DNA [Presence] in Unspecified specimen by Probe with amplification HPV DNA probe, amplified Microbiology Routine Well woman exam with routine gynecological exam Ordered: 08/05/2024 [facility] Comment on above: Ordered: 08/05/2024 Neisseria gonorrhoea e DNA [Presence] in Unspecified specimen by ESTEBAN with probe detection Neisseria gonorrhea DNA probe, direct Lab Routine Exposure to STD Ordered: 08/05/2024 [facility] Comment on above: Ordered: 08/05/2024 Reagin Ab [Presence] in Serum by RPR RPR Lab Routine Missed menses , unspecified gestational age Ordered: 06/07/2024 [facility] Comment on above: Ordered: 06/07/2024 Rubella antibody, IgG Rubella an tibody, IgG Lab Routine Missed menses , unspecified gestational age Ordered: 06/07/2024 [facility] Comment on above: Ordered: 06/07/2024 SURESWAB(R) ADVANCED VAGINITIS PLUS, TMA SURESWAB(R) ADVANCED VAGINITIS PLUS, TMA Pathology and Cytology Routine Exposure to STD Ordered: 08/05/2024 [facility] Work Phone: Comment on above: Ordered: 08/05/2024 [facility] TOTAL PROTEIN 24 HOUR URINE [facility] TOTAL PROTEIN 24 HOUR URINE Lab Ordered: 11/13/2024 [facility] Comment on above: Ordered: 11/13/2024 Immunizations Immunization Date Immunization Notes Care Provider Khai lopez 05-09-2019 influenza virus vacc ine, unspecified formulation Sammie Higginbotham DO Work Phone: [facility] Payers Date Payer Category Payer Private Health Insurance [facility] [id number] 2017 Medicaid [id number] 1992 Unknown [id number] 2.16.840.1.405464.3.579.2. 593 1992 Unknown [id number] 2.16.840.1.521435.3.579.2. 593 1992 Unknown [id number] 2.16.840.1.378197.3.579.2. 593 1992 Unknown [id number] 2.16.840.1.128095.3.579.2. 593 1992 Unknown [id number] 2.16.840.1.010814.3.579.2. 593 1992 Unknown [id number] 2.16.840.1.680613.3.579.2. 593 1992 Unknown [id number] 2.16.840.1.786815.3.579.2. 593 1992 Unknown [id number] 2.16.840.1.974669.3.579.2. 593 1992 Unknown [id number] 2.16.840.1.969584.3.579.2. 593 1992 Unknown [id number] 2.16.840.1.408557.3.579.2. 9 1992 Unknown [id number] 2.16.840.1.584785.3.579.2. 1259 1992 Unknown [id number] 2.16.840.1.322462.3.579.2. 9 1992 Unknown [id number] 2.16.840.1.009837.3.579.2. 1259 1992 Unknown [id number] 2.16.840.1.205853.3.579.2. 9 1992 Unknown [id number] 2.16.840.1.691144.3.579.2. 9 1992 Unknown [id number] 2.16.840.1.981420.3.579.2. 9 1992 Unknown [id number] 2.16.840.1.586968.3.579.2. 9 1992 Unknown [id number] 2.16.840.1.571230.3.579.2. 9 1992 Unknown [id number] 2.16.840.1.592796.3.579.2. 9 1992 Unknown [id number] 2.16.840.1.187924.3.579.2. 1259 1959 Self-pay [id number] 1957 Unknown [id number] Social History Date Type Detail Facility Tobacco smoking stat [facility] Tobacco smoking consumption unknown [facility] Start: 1990 Sex assigned at Not on file [facility] Gender identity Not on file [facility] Start: 04-15-2024 [facility] Equipment Procedure Code Equipment Code Equipment Origin al Text Equipment Identifier Dates 1 strip by In Vi tro route Daily Use in the morning prior to breakfast, 1 hour after each meal for a total of 4times daily. [id number] Start: 10-01-2024 End: 11-13-2024 1 each by In Vit ro route Daily Use to check FSBS four times daily [id number] Start: 10-01-2024 End: 11-13-2024 Clinical Notes 06-07-2024 to 11-27-2024 Madie Maldonado LPN - 11/27/2024 11:30 AM MARLEN Amaya - 11/13/2024 10:30 AM Kelley Maldonado LPN [...] to check FSBS. Blood Glucose Monitoring Suppl ([employer] Glucometer) w/Device kit 1 kit, Does not [...] nursing note reviewed. Exam conducted with a trim master operator present. Vitals: There is no height or weight on file to calculate BMI. BP: 140/86 Patient's last menstrual period was 04/01/2024. ASSESSMENT & PLAN ICD-10-CM 1. Third trimester ([facility]) Z34.93 POCT urinalysis dipstick manually resulted 2. 34 weeks gestation of ([facility]) Z3A.34 3. Hypertension affecting in third trimester ([facility]) O16.3 labetalol (Normodyne) 100 MG tablet 4. Gestational diabetes mellitus (GDM), antepartum, gestational diabetes method of control unspecified ([facility]) O24.419 5. H/O pre-eclampsia in prior , currently ([facility]) O09.299 Return OB: Patient presents today [...] Sammie Higginbotham DO documented in this encounter [facility] 11-13-2024 History of Presen t illness Narrative Reason for Appointment: Patient ID: Janina Martel is a 34 y.o. female who presents for Routine Visit Patient presents today for Return OB appointment. MEDICATIONS Current Outpatient Medications Medication Instructions Alcohol Swabs (Alcohol Prep Pad) 70 % pads 1 Pad, Topical, Daily, Use four times daily to check FSBS. Blood Glucose Monitoring Suppl ([employer] Glucometer) w/Device kit 1 kit, Does not [...] of: MARLEN Estrada documented in this encounter [facility] 10-30-2024 History of Presen t illness Narrative [...] nursing note reviewed. Exam conducted with a trim master operator present. Vitals: There is no height [...] Sammie Higginbotham DO documented in this encounter [facility] 10-01-2024 History of Presen t illness Narrative [...] nursing note reviewed. Exam conducted with a trim master operator present. Vitals: There is no height [...] Lin Sellers NP documented in this encounter [facility] 09-02-2024 History of Presen t illness Narrative [...] nursing note reviewed. Exam conducted with a trim master operator present. Vitals: There is no height [...] Sammie Higginbotham DO documented in this encounter [facility] 08-05-2024 History of Presen t illness Narrative [...] nursing note reviewed. Exam conducted with a trim master operator present. Vitals: There is no height [...] of: MARLEN Estrada documented in this encounter [facility] 07-08-2024 History of Presen t illness Narrative [...] Sammie Higginbotham DO documented in this encounter [facility] 06-07-2024 History of Presen t illness Narrative [...] or undercooked meat, and stay away from [facility]. Patient has also been advised to [...] Isabel Keating MA documented in this encounter [facility] Evaluation note Diagnosis Missed menses 9 [...] encounter [facility] Diagnosis Third trimester ([facility]) state, incidental 34 weeks gestation of ([facility]) Hypertension affecting in third trimester ([facility]) Gestational diabetes mellitus (GDM), antepartum, gestational diabetes method of control unspecified ([facility]) H/O pre-eclampsia in prior , currently ([facility]) documented in this encounter [facility] Summary Purpose Family History No Family History Records FoundNo Family History Records Found Advance Directives No Advanced Directives Records FoundNo Advanced Directives Records Found Additional Source Comments INFORMATION SOURCE (unrecogn ized section and content) DATE CREATED AUTHOR 11/24/2021 [facility] DATE CREATED AUTHOR AUTHOR'S ORGANIZ ATION 11/28/2024 [facility] Care Teams (unrecognized sec tion and content) Manager Recovery Relationship Specialty Start Date End Date Sammie Higginbotham, DO [address], [facility] PCP [facility] 09/04/23 Manager Recovery Relationship Specialty Start Date End Date Sammie Higginbotham, DO [address], [facility]11 [facility] 09/04/23 Manager Recovery Relationship Specialty Start Date End Date Sammie Higginbotham, DO [address], [place] [id number] PCP [facility] 09/04/23 Manager Recovery Relationship Specialty Start Date End Date Sammie Higginbotham, DO [address], [facility]11 [facility] 09/04/23 Manager Recovery Relationship Specialty Start Date End Date Sammie Higginbotham, DO [address], [place] [id number] [facility] 09/04/23 Manager Recovery Relationship Specialty Start Date End Date Neftaly, Sammie, DO [address] [place] [address] PCP [facility] 09/04/23 Manager Recovery Relationship Specialty Start Date End Date Neftaly, Sammie, DO [address], [facility] PCP [facility] 09/04/23 Manager Recovery Relationship Specialty Start Date End Date Neftaly, Sammie, DO [address], [facility]11 [facility] 09/04/23 Manager Recovery Relationship Specialty Start Date End Date Neftaly, Sammie, DO [address], [facility]11 [facility] 09/04/23 Manager Recovery Relationship Specialty Start Date End Date Neftaly, Sammie, DO [address], [facility] PCP [facility] 09/04/23 Manager Recovery Relationship Specialty Start Date End Date Neftaly, Sammie, DO [address] [place] [address] [facility] 09/04/23 Manager Recovery Relationship Specialty Start Date End Date Neftaly, Sammie, DO [address] [place] [address] PCP - [facility] 09/04/23 Reason for Visit (unrecogniz [...] BE BASED ON THE PRIMARY CLINICAL RECORDS. [facility] [employer] provides no warranty or guarantee of the accuracy or completeness of information in this document.
[2024-12-02 11:15] VITALS: BP 136/82; PULSE 105
== END 2024-12-02 11:41 | disposition home or self-care (01) ==
LOC: US 10:51 → FBC 10:53
PROVIDERS: Visit Provider Obstetrics & Gynecology
DX: O24.419 Gestational diabetes mellitus in pregnancy, unspecified control (principal); O09.293 Supervision of pregnancy with other poor reproductive or obstetric history, third trimester; Z3A.35 35 weeks gestation of pregnancy
CPT/HCPCS: 76818

== ENCOUNTER 2024-12-05 07:50 | Outpatient (OUT) | payer OTHER, SELFPAY ==
--- OUTSIDE RECORDS SUMMARY | 2024-11-27 11:30 | XMS_ITS | Encounter Summary ---
Author Organization [facility] Address [address] [facility] [place] [address] Care Team Providers Care Clinical Program Director Name Role Phone Emmy Higginbothamy DO Unavailable Reason for Visit * Reason Comments Routine Visit Encounter Details Date Type Department Care Team (Late st Contact Info) Description 11/27/2024 11:30 AM EDT Routine [facility] [address] [place] [address] Michael Higginbotham, [address] [facility] [address], [facility] Third trimester ([facility]); 34 weeks gestation of ([facility]); Hypertension affecting in third trimester ([facility]); Gestational diabetes mellitus (GDM), antepartum, gestational diabetes method of control unspecified ([facility]); H/O pre-eclampsia in prior , currently ([facility]) Social History Tobacco Use Types [...] to check FSBS. Blood Glucose Monitoring Suppl ([employer] Glucometer) w/Device kit 1 kit, Does not [...] nursing note reviewed. Exam conducted with a shrimp peeler present. Vitals: There is no height or weight on file to calculate BMI. BP: 140/86 Patient's last menstrual period was 04/01/2024. ASSESSMENT & PLAN ICD-10-CM 1. Third trimester ([facility]) Z34.93 POCT urinalysis dipstick manually resulted 2. 34 weeks gestation of ([facility]) Z3A.34 3. Hypertension affecting in third trimester ([facility]) O16.3 labetalol (Normodyne) 100 MGtablet 4. Gestational diabetes mellitus (GDM), antepartum, gestational diabetes method of control unspecified ([facility]) O24.419 5. H/O pre-eclampsia in prior , currently ([facility]) O09.299 Return OB: Patient presents [...] Routine [facility] [address] [place] [address] Michael Higginbotham DO [address] [place] [address] documented as of this encounter Procedures Procedure Name Priority Date/Time Associated Diagnosis Comments POCT URINALYSIS DIPSTICK Routine 11/27/2024 11:50 AM EDT Third trimester ([facility]) documented in this encounter Results [...] this encounter Visit Diagnoses Diagnosis Third trimester ([facility]) state, incidental 34 weeks gestation of ([facility]) Hypertension affecting in third trimester ([facility]) Gestational diabetes mellitus (GDM), antepartum, gestational diabetes method of control unspecified ([facility]) H/O pre-eclampsia in prior , currently ([facility]) documented in this encounter Care Teams Clinical Program Director Relationship Specialty Start Date End Date Michael Higginbotham DO [address] [place] [address] [place] [address] PCP - [facility] 09/04/23 documented as of this encounter
--- OUTSIDE RECORDS SUMMARY | 2024-12-05 07:52 | XMS_ITS | Encounter Summary ---
Author Organization [facility] Address [address] [facility] [place] [address] Care Team Providers Care Net Programmer Name Role Phone Michael Higginbotham DO Unavailable Encounter Details Date Type Department Care Team (Late st Contact Info) Description 11/15/2024 Telephone [facility] [address] [place] [address] [place] [address] Cordelia Green LPN Social History Tobacco [...] scheduled for her NST this morning at [facility] and patient was advised to notify them of any concerns/issues she had. PVU and will reach out to office with frther concerns. Cordelia Winn LPN documented in this encounter Plan of Treatment Upcoming Encounters Date Type Department Care Team (Late st Contact Info) Description 12/11/2024 11:20 AM EDT Routine [facility] [address] [place] [address] Michael Higginbotham DO [address] [place] [address] documented as of this encounter Visit Diagnoses Not on filedocumented in this encounter Care Teams Net Programmer Relationship Specialty Start Date End Date Michael Higginbotham DO [address] [place] [address] PCP - [facility] 09/04/23 documented as of this encounter
--- OUTSIDE RECORDS SUMMARY | 2024-12-05 07:52 | XMS_ITS | Encounter Summary ---
Author Organization [facility] Address [id number] [address] [place] [address] Care Team Providers Care Home Visits Nurse Name Role Phone No Pcp, No Pcp Primary Care Provider Unavailabl e Reason for Referral * Diagnostic Imaging (Routine) - Closed Specialty Diagnoses / Procedures Referred By Contac t Referred To Contact Maternal and Medicine Diagnoses Abnormal chromosomal and genetic finding on screening of mother History of pre-eclampsia Hx of delivery, currently Procedures [facility] with or without consult Navarro Kee MD Phone: tel: fax: [facility]- Medicine at [place] [address] [place] [address] Phone: tel: fax: Referral ID Status Reason Start Date Expiration Date Visits Re quested Visits Authorized [id number] Closed 08/24/2020 08/24/2021 1 1 Encounter Details Date Type Department Care Team (Late st Contact Info) Description 08/24/2020 Orders Only [facility] at [place] [address] [place] [phone] Navarro Kee MD [address] [facility], [address] [place] [id number] Abnormal chromosomal and genetic finding on screening [...] Final 09/21/2020 11:31) PATIENT INFO: ID #: [id number] : [birth year] (30 yrs)(F) Name: JANINA MC Visit Date: 09/21/2020 10:06 [facility] PERFORMED BY: Performed By: Margret Hernandez RDMS Attending: Wes Szymanski MD Referred By: Michael Higginbotham DO Ref. Address: [address] [place] [address] [place] [address] Location: Maternal Medicine [facility] SERVICE(S) PROVIDED: OB Follow-up, 1 fetus [id number] Echocardiogram-complete 70306 INDICATIONS: Screening for follow-up survey Z36.2 History [...] Arch: Previously seen SVC: Previously seen Cardiac Taft: Appears normal Diaphragm: Appears normal 3 Vessel [...] Final 09/21/2020 11:31) PATIENT INFO: ID #: [id number] : [birth year] (30 yrs)(F) Name: JANINA MC Visit Date: 09/21/2020 10:06 HUMMEL PERFORMED BY: Performed By: Margret Hernandez RDMS Attending: Wes Szymanski MD Referred By: Michael Duncan. Address: [address] [place] [address] [place] [address] Location: [facility]aternal Medicine [facility] SERVICE(S) PROVIDED: OB Follow-up, 1 fetus [id number] Echocardiogram-complete 69532 INDICATIONS: Screening for follow-up survey Z36.2 History [...] Arch: Previously seen SVC: Previously seen Cardiac Taft: Appears normal Diaphragm: Appears normal 3 Vessel [...] trimester documented in this encounter Care Teams Home Visits Nurse Relationship Specialty Start Date End Date No Pcp, No Pcp [place] [address] PCP - General Family Medicine 02/26/20 documented as of this encounter
--- OUTSIDE RECORDS SUMMARY | 2024-12-05 07:52 | XMS_ITS | Encounter Summary ---
Author Organization [facility] Address [address] [facility] [place] [address] Care Team Providers Care Chief Risk Officer Name Role Phone Michael Higginbotham DO Unavailable Encounter Details Date Type Department Care Team (Late st Contact Info) Description 11/27/2024 Bamboo flowsheet [facility] [address] [place] [address] [facility] [address], [facility] Social History Tobacco Use Types Packs/Day [...] Routine [facility] [address] [place] [address] Michael Higginbotham, DO [address], [place] [id number] documented as of this encounter Visit Diagnoses Not on filedocumented in this encounter Care Teams Chief Risk Officer Relationship Specialty Start Date End Date Michael Higginbotham DO [facility] [address] [place], [place] [id number] PCP - [facility] 09/04/23 documented as of this encounter
--- OUTSIDE RECORDS SUMMARY | 2024-12-05 07:52 | XMS_ITS | Encounter Summary ---
Author Organization [facility] Address [address] [facility] [place] [address] Care Team Providers Care Alpine Patroller Name Role Phone Michael Higginbotham DO Unavailable Encounter Details Date Type Department Care Team (Late st Contact Info) Description 02/25/2023 Abstract [facility] [address] [place] [address] Michael Higginbotham DO [address], [facility]11 Social History Tobacco Use Types [...] 11:20 AM EDT Routine [facility] [address] [place] [address] Michael Higginbotham DO [address], [place] [address] documented as of this encounter Visit Diagnoses Not on filedocumented in this encounter Care Teams Alpine Patroller Relationship Specialty Start Date End Date Michael Higginbotham DO [place], [place] [id number] PCP - [facility] 09/04/23 documented as of this encounter
--- OUTSIDE RECORDS SUMMARY | 2024-12-05 07:52 | XMS_ITS | Encounter Summary ---
Author Organization [facility] Address [address] [facility] [place] [address] Care Team Providers Care Commonwealth Attorney Name Role Phone Michael Higginbotham DO Unavailable Encounter Details Date Type Department Care Team (Late st Contact Info) Description 10/07/2024 Abstract [facility] [address] [place] [address] Michael Higginbotham [address] [place] [address] Social History Tobacco Use Types Packs/Day [...] Description 12/11/2024 11:20 AM EDT Routine [facility] [address] [place] [address] Michael Higginbotham, DO [address], [facility] documented as of this encounter Visit Diagnoses Not on filedocumented in this encounter Care Teams Commonwealth Attorney Relationship Specialty Start Date End Date Michael Higginbotham DO [facility] [address], [place] [id number] PCP - [facility] 09/04/23 documented as of this encounter
--- OUTSIDE RECORDS SUMMARY | 2024-12-05 07:52 | XMS_ITS | Encounter Summary ---
Author Organization [facility] Address [address] [place] [address] Care Team Providers Care Greeter Name Role Phone Sammie Higginbotham DO Unavailable Encounter Details Date Type Department Care Team (Late st Contact Info) Description 11/25/2024 Clinisync Result Encounter [facility] External Department Unsolicited [facility] [address] [place], [place] [id number] Social History Tobacco Use Types Packs/Day Years [...] AM EDT Routine [facility] OB [address] [place] [phone] Sammie Higginbotham, [facility] [place] [address] documented as of this encounter Procedures Procedure Name Priority Date/Time Associated Diagnosis Comments US OB BPP W NON-STRESS 11/25/2024 10:37 AM EDT documented in this encounter Results * US OB BPP W NON-STRESS (11/25/2024 10:37 AM EDT) Anatomical Region Laterality Modality Other 11/25/2024 10:3 7 AM EDT Narrative 11/25/2024 10:40 [place] [address] Ultrasound Report Signed Patient: JANINA HUMMEL MR#: [id number] : 1990 Acct:[id number] Age/Sex: 34 / F ADM Date: 11/25/24 Loc: [facility] 251-[address]: Sammie Higginbotham D.O. Ordering Physician: Sammie Higginbotham D.O. Date of Service: 11/25/24 Procedure(s): US OB BPP w non-stress Accession Number(s): [id number] cc: Sammie Higginbotham D.O.; Physician,Non-Staff [place] [address] Patient Name: JANINA HUMMEL MRN: [facility]:[id number] date: 1990 Sex: F Assigned Patient Location: Current Patient Location: US Accession/Order Number: [id number] Exam Date: 11/25/2024 10:35 Report Date: 11/25/2024 [...] Long M.D. 11/25/2024 10:37 AM Dictation Location: [place] [address] Electronically authenticated by: [id number] Y Date: 11/25/2024 10:37 Dictated By: Madie Long M.D. Signed By: 11/25/24 1040 DD/ 1037 TD/TT: Fan Runner: Procedure Note Radiology, Radiologist, MD - 11/25/2024 [place] [address] Ultrasound Report Signed Patient: JANINA HUMMEL LMR#: [id number] : 1990Acct:[id number] Age/Sex: 34 / FADM Date: 11/25/24 Loc: [facility] 251-[address]: Sammie Higginbotham D.O. Ordering Physician: Sammie Higginbotham D.O. Date of Service: 11/25/24 Procedure(s): US OB BPP w non-stress Accession Number(s): [id number] cc: Sammie Higginbotham D.O.; Physician,Non-Staff [place] [id number] Patient Name: JANINA HUMMEL MRN: [id number] date: 1990 Sex: F Assigned Patient Location: Current Patient Location: US Accession/Order Number: [id number] Exam Date: 11/25/2024 10:35 Report Date: 11/25/2024 [...] Long M.D. 11/25/2024 10:37 AM Dictation Location: [place] [address] Electronically authenticated by: [id number] Y Date: 0:37 Dictated By: Madie Long M.D. Signed By:11/25/24 1040 DD/ 1037 TD/TT: Fan Runner: us Sammie Higginbotham DO [facility] Final Result documented in this encounter Visit Diagnoses Not on filedocumented in this encounter Care Teams Greeter Relationship Specialty Start Date End Date Sammie Higginbotham DO [address] [place] [address] [place] [address] PCP - [facility] 09/04/23 documented as of this encounter
--- OUTSIDE RECORDS SUMMARY | 2024-12-05 07:52 | XMS_ITS | Encounter Summary ---
Author Organization [facility] Address [address] [facility] [place] [address] Care Team Providers Care Guest Services Attendant Name Role Phone Neftaly Michael DO Unavailable Encounter Details Date Type Department Care Team (Late st Contact Info) Description 11/18/2024 Results Follow-Up [facility] OB [address] [facility] [place] [address] Leora Loredo LPN [address] [place] [address] Social History Tobacco Use Types [...] AM EDT Routine [facility]CP OB [address] [facility] [place] [address] Michael Higginbotham, [address] [facility] [address] [place], [place] [phone] documented as of this encounter Visit Diagnoses Not on filedocumented in this encounter Care Teams Guest Services Attendant Relationship Specialty Start Date End Date Michael Higginbotham DO [address] [place] [address] [place] [address] PCP - [facility] 09/04/23 documented as of this encounter
--- OUTSIDE RECORDS SUMMARY | 2024-12-05 07:52 | XMS_ITS | Encounter Summary ---
Author Organization [facility] Address [address] [place] [address] Care Team Providers Care Central Processing Tech Name Role Phone NeftalyEmmy bolanosy DO Unavailable Encounter Details Date Type Department Care Team (Late st Contact Info) Description 12/03/2024 Telephone [facility] OB [address] [place] [address] Neftaly Michael, [address] [place] [address] Social History Tobacco Use Types Packs/Day [...] encounter Miscellaneous Notes * Telephone Encounter - Krystalchary Sosa LPN - 12/03/2024 12:50 PM EDT I was just calling because my labetaol prescription was increased last week, but the new dosage wasnot sent into the pharmacy yet. So I just wanted to make sure that got over and filled before I ranout in the next couple days if you wanted to give me a call back. Called spoke with pharmacy they did have the script was not due to be dispensed until 12/06/2024 but she was able to do an over ride and be able to fill this. Patient was called made aware of this and voiced understanding she states they she did not see on her jennifer but reassured they did have it and sometimes with that it does not show but will be getting filled today. documented in this encounter Plan of Treatment Upcoming Encounters Date Type Department Care Team (Late st Contact Info) Description 12/11/2024 11:20 AM EDT Routine [facility] OB [address] [place] [address] Michael Higginbotham, [address] [place] [address] documented as of this encounter Visit Diagnoses Not on filedocumented in this encounter Care Teams Central Processing Tech Relationship Specialty Start Date End Date Michael Higginbotham DO [address] [place] [address] PCP - [facility] 09/04/23 documented as of this encounter
--- OUTSIDE RECORDS SUMMARY | 2024-12-05 07:52 | XMS_ITS | Encounter Summary ---
Author Organization [facility] Address [address] [place] [address] Care Team Providers Care Resource Room Teacher Name Role Phone Sammie Higginbotham DO Unavailable Encounter Details Date Type Department Care Team (Late st Contact Info) Description 12/02/2024 Clinisync Result Encounter [facility] External Department Unsolicited [facility] [address] [place], [place] [phone] Social History Tobacco Use Types Packs/Day Years [...] AM EDT Routine [facility] [address] [facility] [phone] Sammie Higginbotham, [facility] [place] [address] documented as of this encounter Procedures Procedure Name Priority Date/Time Associated Diagnosis Comments US OB BPP W NON-STRESS 12/02/2024 11:52 AM EDT documented in this encounter Results * US OB BPP W NON-STRESS (12/02/2024 11:52 AM EDT) Anatomical Region Laterality Modality Other 12/02/2024 11:5 2 AM EDT Narrative 12/02/2024 11:54 [place] [address] Ultrasound Report Signed Patient: JANINA HUMMEL MR#: [id number] : 1990 Acct:[id number] Age/Sex: 34 / F ADM Date: 12/02/24 Loc: US Attending Dr: Sammie Higginbotham D.O. Ordering Physician: Sammie Higginbotham D.O. Date of Service: 12/02/24 Procedure(s): US OB BPP w non-stress Accession Number(s): [id number] cc: Sammie Higginbotham D.O.; Physician,Non-Staff [place] [id number] Patient Name: JANINA HUMMEL MRN: [facility]:[id number] date: 1990 Sex: F Assigned Patient Location: [facility] Current Patient Location: Accession/Order Number: [id number] Exam Date: 12/02/2024 11:51 Report Date: 12/02/2024 11:52 At the request of: SAMMIE HIGGINBOTHAM DO Procedure: US OB BPP w non-stress BIOPHYSICAL PROFILE: CLINICAL INFORMATION: HISTORY OF PRE ECLAMPSIA O09.299 COMPARISON: 11/25/2024 There is a single live intrauterine gestation in cephalic presentation. The reported gestational age is 35 weeks 0 days. The heart rate measures 161 beats per minute. FINDINGS: TONE: 1 or [...] greater than 2 cm [Y] 2/2 JUSTA: 16.1 cm. This is in upper normal range. Total score: 8/8 US/US OB BPP w non-stress IMPRESSION: NORMAL BIOPHYSICAL PROFILE Impression dictated by: Madie Long M.D. 12/02/2024 11:52 AM Dictation Location: [place] [address] Electronically authenticated by: [id number] Y Date: 12/02/2024 11:52 Dictated By: Madie Long M.D. Signed By: 12/02/24 1154 DD/ 1152 TD/TT: Venture Capital Analyst: Procedure Note Radiology, Radiologist, MD - 12/02/2024 [place] [address] Ultrasound Report Signed Patient: JANINA HUMMEL LMR#: [id number] : 1990Acct:[id number] Age/Sex: 34 / FADM Date: 12/02/24 Loc: US Attending Dr: Sammie Higginbotham D.O. Ordering Physician: Sammie Higginbotham D.O. Date of Service: 12/02/24 Procedure(s): US OB BPP w non-stress Accession Number(s): [id number] cc: Sammie Higginbotham D.O.; Physician,Non-Staff [place] [id number] Patient Name: JANINA HUMMEL MRN: [id number] date: 1990 Sex: F Assigned Patient Location: [facility] Current Patient Location: Accession/Order Number: [id number] Exam Date: 12/02/2024 11:51 Report Date: 12/02/2024 11:52 At the request of: SAMMIE HIGGINBOTHAM DO Procedure: US OB BPP w non-stress BIOPHYSICAL PROFILE: CLINICAL INFORMATION: HISTORY OF PRE ECLAMPSIA O09.299 COMPARISON: 11/25/2024 There is a single live intrauterine gestation in cephalic presentation.The reported gestational age is 35 weeks 0 days. The heart ratemeasures 161 beats per minute. FINDINGS: TONE: 1 or [...] greater than 2 cm [Y] 2/2 JUSTA: 16.1 cm. This is in upper normal range. Total score: 8/8 US/US OB BPP w non-stress IMPRESSION: NORMAL BIOPHYSICAL PROFILE Impression dictated by: Madie Long M.D. 12/02/2024 11:52 AM Dictation Location: [place] [address] Electronically authenticated by: [id number] Y Date: 1:52 Dictated By: Madie Long M.D. Signed By:12/02/24 1154 DD/ 1152 TD/TT: Venture Capital Analyst: us Sammie Higginbotham DO [facility] Final Result documented in this encounter Visit Diagnoses Not on filedocumented in this encounter Care Teams Resource Room Teacher Relationship Specialty Start Date End Date Sammie Higginbotham DO [address] [place] [address] [place] [address] PCP - [facility] 09/04/23 documented as of this encounter
--- OUTSIDE RECORDS SUMMARY | 2024-12-05 07:52 | XMS_ITS | Clinical Summary ---
Author Organization [facility] [facility] Address [facility]-[id number] [address] [place] [address] Care Team Providers Care Water Supply Engineer Name Role Phone No Pcp, No Pcp [...] on file Insurance [employer] Care Teams Water Supply Engineer Relationship Specialty Start Date End Date No Pcp, [place] [id number] PCP - General Family Medicine 02/26/20
--- OUTSIDE RECORDS SUMMARY | 2024-12-05 07:52 | XMS_ITS | Encounter Summary ---
Author Organization [facility] Healthcare Address [address] [place] [address] Care Team Providers Care Animal Care Specialist Name Role Phone Michael Higginbotham DO Unavailable Encounter Details Date Type Department Care Team (Late st Contact Info) Description 10/01/2024 Abstract [facility] OB [address] [place] [address] Michael Higginbotham [address] [place] [address] Social History Tobacco Use Types Packs/Day [...] Description 12/11/2024 11:20 AM EDT Routine [facility] OB [address] [place] [address] Michael Higginbotham, DO [address] [place], [facility]11 documented as of this encounter Visit Diagnoses Not on filedocumented in this encounter Care Teams Animal Care Specialist Relationship Specialty Start Date End Date Michael Higginbotham DO [facility] [address] [place], [place] [phone] PCP - [employer] CASE AIDE 09/04/23 documented as of this encounter
--- OUTSIDE RECORDS SUMMARY | 2024-12-05 07:52 | XMS_ITS | Encounter Summary ---
Author Organization [facility] Healthcare Address [address] [facility] [place] [address] Care Team Providers Care Nip Wrapper Name Role Phone Michael Higginbotham DO Unavailable Encounter Details Date Type Department Care Team (Late st Contact Info) Description 07/01/2024 Abstract [facility] [address] [place] [address] Michael Higginbotham [address] [place] [address] Social History Tobacco Use Types Packs/Day [...] 12/11/2024 11:20 AM EDT Routine [facility] [address] [place] [address] Michael Higginbotham, DO [address] [place], [facility] documented as of this encounter Visit Diagnoses Not on filedocumented in this encounter Care Teams Nip Wrapper Relationship Specialty Start Date End Date Michael Higginbotham DO [facility] [address] [place], [place] [id number] PCP - [employer] CARD READER 09/04/23 documented as of this encounter
--- OUTSIDE RECORDS SUMMARY | 2024-12-05 07:52 | XMS_ITS | Encounter Summary ---
Author Organization [facility] Address [address] [facility] [place] [address] Care Team Providers Care Line Producer Name Role Phone Michael Higginbotham DO Unavailable Encounter Details Date Type Department Care Team (Late st Contact Info) Description 08/19/2024 Orders Only [facility] [address] [facility] [place] [address] Isabel Keating [place] [address] [place] [address] Social History Tobacco Use Types Packs/Day Years [...] Description 12/11/2024 11:20 AM EDT Routine [facility] OB [address] [facility] [place] [address] Michael Higginbotham, [address] [place], [place] [phone] documented as of this encounter Procedures Procedure Name Priority Date/Time Associated Diagnosis Comments PAP SMEAR Routine 08/05/2024 12:00 AM EST documented in this encounter Results * Pap Smear (08/05/2024 12:00 AM EST) Swab Cervical swab / Unknown [facility]TOLOGY ORDERABLES Final Re sult EXTERNAL LAB documented in this encounter Visit Diagnoses Not on filedocumented in this encounter Care Teams Line Producer Relationship Specialty Start Date End Date Michael Higginbotham DO [address] [place] [address] PCP - [facility] CHOPPING MACHINE OPERATOR 09/04/23 documented as of this encounter
--- OUTSIDE RECORDS SUMMARY | 2024-12-05 07:52 | XMS_ITS | Encounter Summary ---
Author Organization [facility] Healthcare Address [address] [place] [address] Care Team Providers Care Bottom Hoop Driver Name Role Phone Michael Higginbotham DO Unavailable Encounter Details Date Type Department Care Team (Late st Contact Info) Description 11/13/2024 Abstract [facility] OB [address] [place] [address] Michael Higginbotham [address] [place], [facility]11 Social History Tobacco Use Types [...] Description 12/11/2024 11:20 AM EDT Routine [facility] OB [address] [place] [address] Michael Higginbotham, DO [address] [place], [facility] documented as of this encounter Visit Diagnoses Not on filedocumented in this encounter Care Teams Bottom Hoop Driver Relationship Specialty Start Date End Date Michael Higginbotham DO [facility] [address] [place], [place] [id number] PCP - [employer] RN CLINICAL RESOURCE 09/04/23 documented as of this encounter
--- OUTSIDE RECORDS SUMMARY | 2024-12-05 07:52 | XMS_ITS | Encounter Summary ---
Author Organization [facility] Healthcare Address [address] [facility] [place] [address] Care Team Providers Care Senior Lead Developer Name Role Phone Michael Higginbotham DO Unavailable Encounter Details Date Type Department Care Team (Late st Contact Info) Description 09/05/2024 Abstract [facility] OB [address] [place] [address] Michael Higginbotham [address] [place] [address] Social History Tobacco Use Types Packs/Day [...] 12/11/2024 11:20 AM EDT Routine [facility] OB [address] [place] [address] Michael Higginbotham, DO [address] [place], [facility] documented as of this encounter Visit Diagnoses Not on filedocumented in this encounter Care Teams Senior Lead Developer Relationship Specialty Start Date End Date Michael Higginbotham DO [facility] [address] [place], [place] [id number] PCP - [employer] ANNUAL GIVING DIRECTOR 09/04/23 documented as of this encounter
--- OUTSIDE RECORDS SUMMARY | 2024-12-05 07:52 | XMS_ITS | Clinical Summary ---
Author Organization [facility] Healthcare Address [address] [place] [address] Care Team Providers Care Digester Operator Helper Name Role Phone Sammie Higginbotham DO Unavailable [...] tabletIndicati ons:Hypertensi on affecting in third trimester ([facility]) Take 2 tablets (200 mg) by mouth [...] tabletIndicati ons:Hypertensi on affecting in third trimester ([facility]) Take 1 tablet (100 mg) by mouth in the morning and 1 tablet (100 mg) before bedtime. 60 tablet 3 11/14/19 25 025 Discontinued(Re order) Encounters Date Type Department Care Team Description 12/03/2024 [address]phone [facility] [address] [place] [phone] Sammie Higginbotham, DO 12/02/2024 Clinisync Result Encounter [facility] External Department Unsolicited Sammie Higginbotham, DO 11/27/2024 11:30 AM EDT Routine [facility] [address] [place] [phone] Sammie Higginbotham, DO Third trimester ([facility]); 34 weeks gestation of ([facility]); Hypertension affecting in third trimester ([facility]); Gestational diabetes mellitus (GDM), antepartum, gestational diabetes method of control unspecified ([facility]); H/O pre-eclampsia in prior , currently ([facility]) 11/27/2024 Bamboo flowsheet [facility] [address] [place] [address] Sammie Higginbotham, DO 11/25/2024 Clinisync Result Encounter [facility] External Department Unsolicited Sammie Higginbotham, DO 11/18/2024 Clinisync Result Encounter [facility] External Department Unsolicited Sammie Higginbotham, DO 11/18/2024 Results Follow-Up [facility] [place] [address] [place] [phone] Leora Loredo LPN 11/15/2024 Telephone [facility] [place] [address] [place] [address] Cordelia Green LPN 11/13/2024 10:30 AM EDT Routine [facility] [place] [address] [place] [address] Diya Villanueva, PA Hypertension affecting in third trimester ([facility]) (Primary Dx); 32 weeks gestation of ([facility]); Third trimester ([facility]) 11/13/2024 Clinisync Result Encounter [facility] External Department Unsolicited Sammie Higginbotham, DO 11/13/2024 Abstract [facility] [address] [place] [address] Sammie Higginbotham, DO 11/13/2024 Bamboo flowsheet [facility] [address] [place] [address] Diya Villanueva PA 11/12/2024 Clinisync Result Encounter [facility] External Department Unsolicited Sammie Higginbotham, DO 10/30/2024 10:50 AM EDT Routine [facility] [address] [place] [address] Sammie Higginbotham, DO 30 weeks gestation of ([facility]); Third trimester ([facility]); H/O pre-eclampsia in prior , currently ([facility]); Gestational diabetes mellitus (GDM), antepartum, gestational diabetes method of control unspecified ([facility]) 10/30/2024 10:00 AM EDT Ancillary Procedure [facility] [address] [place] [address] H/O pre-eclampsia in prior , currently ([facility]) 10/14/20[address] [facility] [address] [place] [address] Paola Centeno MA 10/07/2024 Abstract [facility] [address] [place] [address] Sammie Higginbotham, 10/01/2024 9:30 AM EDT Routine [facility] [address] [place] [address] Lin Sellers NP Second trimester ([facility]); size inconsistent with dates ([facility]); H/O pre-eclampsia in prior , currently ([facility]); Gestational diabetes mellitus (GDM), antepartum, gestational diabetes method of control unspecified ([facility]); Elevated glucose tolerance test 10/01/2024 Abstract [facility] [address] [place] [address] Sammie Higginbotham DO 10/01/2024 Bamboo flowsheet [facility] [address] [place] [address] Lin Sellers, ESTEBAN 09/05/2024 Abstract [facility] [address] [place] [address] Sammie Higginbotham DO from Last 3 Months [...] 12/11/2024 11:20 AM EDT Routine [facility] [address] [place] [address] Sammie Higginbotham DO [address] [place] [address] [address] [place], [place] [id number] Health Maintenance Due Date Last Done Comments Influenza Vaccine (#1) 2025 05/09/2019 Cervical Cancer Screening 08/05/2029 HPV/Cotest 08/05/2029 03/15/2023 Pap Smear 08/05/2029 08/05/2024 Procedures Procedure Name Priority Date/Time Associated Diagnosis Comments US OB BPP W NON-STRESS 12/02/2024 11:52 AM EDT POCT URINALYSIS DIPSTICK Routine 11/27/2024 11:50 AM EDT Third trimester ([facility]) US OB BPP W NON-STRESS 11/25/2024 10:37 AM EDT US OB BPP W NON-STRESS 11/18/2024 9:26 AM EDT [facility] TOTAL PROTEIN 24 HOUR URINE Routine 11/13/2024 7:15 PM EDT POCT URINALYSIS DIPSTICK Routine 11/13/2024 10:33 AM EDT 32 weeks gestation of ([facility]) Third trimester ([facility]) [facility] URINE T PROTEIN CREAT RATIO Routine [...] 10:35 AM EDT 30 weeks gestation of ([facility]) Third trimester ([facility]) US OB FOLLOW UP TRANSABDOMINAL APPROACH Routine 10/30/2024 10:16 AM EDT H/O pre-eclampsia in prior , currently ([facility]) PAP SMEAR Routine 08/05/2024 12:00 AM EST THINPREP PAP AND HPV MRNA E6/E7 W/RFL HPV 16,18/45 Routine 03/15/2023 12:16 PM EDT Well woman exam with routine gynecological exam from Last 3 Months or Most Recently Relevant to Health Maintenance Results * US OB BPP W NON-STRESS (12/02/2024 11:52 AM EDT) Only the most recent of4 resultswithin the time period is included. Anatomical Region Laterality Modality Other 12/02/2024 11:5 2 AM EDT Narrative 12/02/2024 11:54 AM EDT [address] [address] Ultrasound Report Signed Patient: JANINA HUMMEL MR#: [id number] : 1990 Acct:[id number] Age/Sex: 34 / F ADM Date: 12/02/24 Loc: US Attending Dr: Sammie Higginbotham D.O. Ordering Physician: Sammie Higginbotham D.O. Date of Service: 12/02/24 Procedure(s): US OB BPP w non-stress Accession Number(s): [id number] cc: Sammie Higginbotham D.O.; Physician,Non-Staff MKeke [address] [address] Patient Name: JANINA HUMMEL MRN: [facility]:[id number] date: 1990 Sex: F Assigned Patient Location: [facility] Current Patient Location: Accession/Order Number: [id number] Exam Date: 12/02/2024 11:51 Report Date: 12/02/2024 [...] Long M.D. 12/02/2024 11:52 AM Dictation Location: [place] [address] Electronically authenticated by: [id number] Y Date: 12/02/2024 11:52 Dictated By: Madie Long M.D. Signed By: 12/02/24 1154 DD/ 1152 TD/TT: Enrober: Procedure Note Radiology, Radiologist, MD - 12/02/2024 [place] [address] Ultrasound Report Signed Patient: JANINA HUMMEL LMR#: [id number] : 1990Acct:[id number] Age/Sex: 34 / FADM Date: 12/02/24 Loc: US Attending Dr: Sammie Higginbotham D.O. Ordering Physician: Sammie Higginbotham D.O. Date of Service: 12/02/24 Procedure(s): US OB BPP w non-stress Accession Number(s): [id number] cc: Sammie Higginbotham D.O.; Physician,Non-Staff [place] [address] Patient Name: JANINA HUMMEL MRN: [id number] date: 1990 Sex: F Assigned Patient Location: [facility] Current Patient Location: Accession/Order Number: [id number] Exam Date: 12/02/2024 11:51 Report Date: 12/02/2024 [...] Long M.D. 12/02/2024 11:52 AM Dictation Location: [place] [address] Electronically authenticated by: [id number] Y Date: 1:52 Dictated By: Madie Long M.D. Signed By:12/02/24 1154 DD/ 1152 TD/TT: Enrober: us Sammie Higginbotham DO [facility] Final Result * (ABNORMAL) POCT urinalysis dipstick manually resulted (11/27/2024 11:50 AM EDT) Only the most recent of3 resultswithin the time period is included. Color, UA Yellow Clarity, UA Clear Glucose, UA Negative Negative - 1999(110) ++++ mg/dL Bilirubin, UA Negative Negative - 4(70) +++ mg/dL Ketones, UA Negative Negative - 160(16) ++++ mg/dL Spec Grav, UA 1.015 1 - 1.03 Blood, UA Negative Negative - 50 Dario/mcL pH, UA 7.0 5 - 9 Protein, UA Trace Negative - 1999(20) ++++ mg/dL Urobilinogen, UA 0.2 0.2 - 12 mg/dL Leukocytes, UA Positive Negative - 500+++ Oksana/mcL Comment:Moderate Nitrite, UA Negative Negative - Positive Urine 11/27/2024 11:5 0 AM EDT Sammie Neftaly DO POINT OF CARE TEST ENTER/EDIT OR DERABLES Final Result * (ABNORMAL) [facility] TOTAL PROTEIN 24 HOUR URINE (11/13/2024 7:15 PM EDT) TOTAL PROTEIN URINE RANDOM 10.8 <=11.9 mg/dL [facility] TOTAL VOLUME 24 HOUR URINE 2,800 mL/24hr TBH TBH TOTAL PROTEIN 24 HOUR URINE 302.4(H) <=149.1 mg/24hr [facility] 11/13/2024 7:15 PM EDT 11/13/2024 8:54 PM EDT Narrative [facility] - 11/13/2024 10:18 PM EDT Sammie Neftaly DO [facility] Final Result [facility] * (ABNORMAL) [facility] URINE T PROTEIN CREAT RATIO (11/12/2024 3:00 PM EDT) TOTAL PROTEIN URINE RANDOM <6.0 <=11.9 mg/dL [facility] CREATININE URINE RANDOM 19.35(L) 20.00 - 300.00 mg/dL [facility] 11/12/2024 3:00 PM EDT 11/12/2024 3:00 PM EDT Narrative [facility] - 11/12/2024 3:08 PM EDT Sammie Neftaly DO [facility] Final Result Performing Organization Address [facility] Co de Phone Number [facility] * (ABNORMAL) [facility] CREATININE (11/12/2024 1:58 PM EDT) CREATININE 0.49(L) 0.55 - 1.02 mg/dL TBH TBH EGFR-AF WALLISIAN >60 >=60 mL/min/1.7 3m 2 TBH TBH EGFR-NON AF WALLISIAN >60 >=60 mL/min/1.7 3m 2 [facility] 11/12/2024 1:58 PM EDT 11/12/2024 2:02 PM EDT Narrative [facility] - 11/12/2024 2:20 PM EDT Result [facility] Sammie Neftaly DO [facility] Final Result Performing Organization Address [facility] de Phone Number [facility] * SRMCOH PROTHROMBIN TIME INR W/O [...] DO [facility] Final Result Performing Organization Address [facility] de Phone Number [facility] * (ABNORMAL) MHPT FIBRINOGEN (11/12/2024 1:58 PM EDT) FIBRINOGEN 537(H) 200 - 400 mg/dL [facility] 11/12/2024 1:58 PM EDT 11/12/2024 2:02 PM EDT Narrative [facility] - 11/12/2024 2:48 PM EDT us Sammie Neftaly DO [facility] Final Result [facility] * (ABNORMAL) [facility] AST (11/12/2024 1:58 PM EDT) ASPARTATE AMINO TRANSFERASE 11(L) 15 - 37 U/L [facility] 11/12/2024 1:58 PM EDT 11/12/2024 2:02 PM EDT Narrative [facility] - 11/12/2024 2:20 PM EDT us Sammie Neftaly DO [facility] Final Result Performing Organization Address [facility]/ZIP Co de Phone Number [facility] * [facility] APTT (11/12/2024 1:58 PM EDT) PARTIAL THROMBOPLASTIN TIME 23.3 22.3 - 36.2 sec [facility] 11/12/2024 1:58 PM EDT 11/12/2024 2:02 PM EDT Narrative [facility] - 11/12/2024 2:48 PM EDT us Sammie Neftaly DO [facility] Final Result Performing Organization Address City/[facility]/ZIP Co de Phone Number [facility] * [facility] ALT (11/12/2024 1:58 PM EDT) ALANINE AMINOTRANSFERASE 14 14 - 59 U/L [facility] 11/12/2024 1:58 PM EDT 11/12/2024 2:02 PM EDT Narrative [facility] - 11/12/2024 2:20 PM EDT us Sammie Neftaly DO [facility] Final Result [facility] * ALL URIC ACID (11/12/2024 1:58 PM EDT) Pathologist [facility] URIC ACID 3.6 2.6 - 6.0 mg/dL TB 11/12/2024 1:58 PM EDT 11/12/2024 2:02 PM EDT Narrative [facility] - 11/12/2024 2:20 PM EDT Sammie Neftaly DO [facility] Final Result [facility] * (ABNORMAL) ALL CBC WITH AUTO DIFF (11/12/2024 1:58 PM EDT) Pathologist [facility] TB WBC 13.8(H) 4.0 - 11.0 10 3/uL TBH TBH RBC 3.74(L) 4.20 - 5.40 10 6/uL TBH TBH HGB 10.1(L) 12.0 - 16.0 g/dL TB TB HCT 30.7(L) 36.0 - 48.0 % TBH TBH MCV 82.1 81.0 - 99.0 fL TBH TBH MCH 27.0 26.7 - 34.0 pg TBH TBH MCHC 32.9 29.9 - 35.2 g/dL TBH TB RDW 13.7 11.0 - 15.0 % TBH [...] us Sammie Neftaly DO [facility] Final Result [facility] * ALL BUN (11/12/2024 1:58 PM EDT) BLOOD UREA NITROGEN 13.0 7.0 - 18.0 mg/dL [facility] 11/12/2024 1:58 PM EDT 11/12/2024 2:02 PM EDT Narrative [facility] - 11/12/2024 2:20 PM EDT us Sammie Neftaly DO [facility] Final Result Performing Organization Address City/[facility] Co de Phone Number [facility] * US OB follow up [...] II, MD, PHD at 30-Oct-2024 11:19:03 PM [facility] Procedure Note Amy Steele MD - [...] AMY STEELE II, MD, PHD 11:19:03 PM [facility] us Lin Sellers ASIAN ART CURATOR IMG OB US PROCEDURES Final Re sult * Pap Smear (08/05/2024 12:00 AM EST) Swab Cervical swab / Unknown us Diya Villanueva PA LAB CYTOLOGY ORDERABLES Final Re sult EXTERNAL LAB * THINPREP PAP AND HPV MRNA E6/E7 W/RFL HPV 16,18/45 (03/15/2023 12:16 PM EDT) us Sammie Higginbotham DO LAB BLOOD ORDERABLES Final Resul t Performing Organization Address City/[facility]/ZIP Co de Phone Number EXTERNAL LAB from Last 3 Months or Most Recently Relevant to Health Maintenance Insurance [employer] Care Teams Digester Operator Helper Relationship Specialty Start Date End Date Sammie Higginbotham DO [facility] [place] [address] PCP - [facility] 09/04/23
--- OUTSIDE RECORDS SUMMARY | 2024-12-05 07:54 | XMS_ITS | CCD ---
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 In the morning prior to breakfast & 1 hour after each meal for a total of 4times daily. 1 kit 10/01/2024 10/01/2025 Active isopropyl alcohol 0.7 ml/ml medicated pad (13 sources) Start: 10-01-2024 Alcohol Swabs (Alcohol Prep Pad) 70 % pads Indications: Elevated glucose tolerance test Apply 1 Pad topically Daily Use four times daily to check FSBS. 150 each 3 10/01/2024 Active labetalol hydrochloride 100 mg oral tablet (11 sources) beta-Adrenergic Katarina Start: 11-27-2024 End: 11-27-2025 [...] Facility US OB BPP W NON-STRESS on 12-02-2024 [place] [address] Ultrasound Report Signed Patient: JANINA MARTEL MR#: [id number] : 1990 Acct:[id number] Age/Sex: 34 / F ADM Date: 12/02/24 Loc: US Attending Dr: Sammie Higginbotham D.O. Ordering Physician: Sammie Higginbotham D.O. Date of Service: 12/02/24 Procedure(s): US OB BPP w non-stress Accession Number(s): [id number] cc: Sammie Higginbotham D.O.; Physician,Non-Staff M.DRiana The [place] [id number] Patient Name: JANINA MARTEL MRN: [id number]:[id number] date: 1990 Sex: F Assigned Patient Location: [facility] Current Patient Location: Accession/Order Number: [id number] Exam Date: 12/02/2024 11:51 Report Date: 12/02/2024 [...] Long M.D. 12/02/2024 11:52 AM Dictation Location: [place] [address] Electronically authenticated by: [id number] Y Date: 12/02/2024 11:52 Dictated By: Madie Long M.D. Signed By: 12/02/24 1154 DD/ 1152 TD/TT: Chief Strategy Officer: [facility] Radiology, Radiologist, MD - 12/02/2024 [place] [address] Ultrasound Report Signed Patient: JANINA MARTEL MR#: [id number] : 1990 Acct:[id number] Age/Sex: 34 / F ADM Date: 12/02/24 Loc: US Attending Dr: Sammie Higginbotham D.O. Ordering Physician: Sammie Higginbotham D.O. Date of Service: 12/02/24 Procedure(s): US OB BPP w non-stress Accession Number(s): [id number] cc: Sammie Higginbotham D.O.; Physician,Non-Staff [place]ylene [place] [id number] Patient Name: JANINA MARTEL MRN: [facility]:[id number] date: 1990 Sex: F Assigned Patient Location: [facility] Current Patient Location: Accession/Order Number: [id number] Exam Date: 12/02/2024 11:51 Report Date: 12/02/2024 [...] Long M.D. 12/02/2024 11:52 AM Dictation Location: [place] [address] Electronically authenticated by: [id number] Y Date: 12/02/2024 11:52 Dictated By: Madie Long M.D. Signed By: 12/02/24 1154 DD/ 1152 TD/TT: Chief Strategy Officer: [facility] Radiology Study observation (narrative) [facility] OB BPP W NON-STRESS Ordered By: Radiologist Radiology on 12-02-2024 [facility] [employer] Work Phone: Urinalysis macro (dipstick) panel (U)on 11-27-2024 Bilirubin, UA Negative Negative - 4(70) +++ mg/dL [facility] Blood, UA Negative Negative - 50 Dario/mcL [facility] Clarity, UA Clear [facility] re Color, UA Yellow [facility] Glucose, UA Negative Negative - 1999(110) ++++ mg/dL [facility] Interpretation and review of laboratory results Abnormal [facility] Ketones, UA Negative Negative - 160(16) ++++ mg/dL [facility] Leukocytes, UA Positive Negative - 500+++ Oksana/mcL [facility] Comment on above: Moderate Nitrite, UA Negative Negative - Positive [facility] pH, UA 7 5 - 9 [facility] Protein, UA Trace Negative - 1999(20) ++++ mg/dL [facility] Spec Grav, UA 1.015 1 - 1.03 [facility] care Urobilinogen, UA 0.2 0.2 - 12 mg/dL [facility] US OB BPP W NON-STRESS on 11-25-2024 [place] [address] Ultrasound Report Signed Patient: JANINA MARTEL MR#: [id number] : 1990 Acct:[id number] Age/Sex: 34 / F ADM Date: 11/25/24 Loc: [facility] 251-[address]: Sammie Higginbotham D.O. Ordering Physician: Sammie Higginbotham D.O. Date of Service: 11/25/24 Procedure(s): US OB BPP w non-stress Accession Number(s): [id number] cc: Sammie Higginbotham D.O.; Physician,Non-Staff M.DRiana The [place] [id number] Patient Name: JANINA MARTEL MRN: [id number] date: 1990 Sex: F Assigned Patient Location: US Current Patient Location: US Accession/Order Number: [id number] Exam Date: 11/25/2024 10:35 Report Date: 11/25/2024 [...] Long M.D. 11/25/2024 10:37 AM Dictation Location: [place] [address] Electronically authenticated by: [id number] Y Date: 11/25/2024 10:37 Dictated By: Madie Long M.D. Signed By: 11/25/24 1040 DD/ 1037 TD/TT: Chief Strategy Officer: [facility] Radiology, Radiologist, MD - 11/25/2024 [place] [address] Ultrasound Report Signed Patient: JANINA MARTEL MR#: [id number] : 1990 Acct:[id number] Age/Sex: 34 / F ADM Date: 11/25/24 Loc: [facility] 251-[address]: Sammie Higginbotham D.O. Ordering Physician: Sammie Higginbotham D.O. Date of Service: 11/25/24 Procedure(s): US OB BPP w non-stress Accession Number(s): [id number] cc: Sammie Higginbotham D.O.; Physician,Non-Staff Mylene The [place] [id number] Patient Name: JANINA MARTEL MRN: [facility]:[id number] date: 1990 Sex: F Assigned Patient Location: US Current Patient Location: US Accession/Order Number: [id number] Exam Date: 11/25/2024 10:35 Report Date: 11/25/2024 [...] Long M.D. 11/25/2024 10:37 AM Dictation Location: [place] [address] Electronically authenticated by: [id number] Y Date: 11/25/2024 10:37 Dictated By: Madie Long M.D. Signed By: 11/25/24 1040 DD/ 1037 TD/TT: Chief Strategy Officer: [facility] Radiology Study observation (narrative) [facility] OB BPP W NON-STRESS Ordered By: Radiologist Radiology on 11-25-2024 [facility] [employer] Work Phone: OB BPP W NON-STRESS on 11-18-2024 [place] [address] Ultrasound Report Signed Patient: JANINA MARTEL MR#: [id number] : 1990 Acct:[id number] Age/Sex: 34 / F ADM Date: 11/18/24 Loc: [facility] 250-[address]: Sammie Higginbotham D.O. Ordering Physician: Sammie Higginbotham D.O. Date of Service: 11/18/24 Procedure(s): US OB BPP w non-stress Accession Number(s): [id number] cc: Sammie Higginbotham D.O.; Physician,Non-Staff Mylene The [place] [address] Patient Name: JANINA MARTEL MRN: [facility]:[id number] date: 1990 Sex: F Assigned Patient Location: [facility] Current Patient Location: [facility] Accession/Order Number: [id number] Exam Date: 11/18/2024 09:24 Report Date: 11/18/2024 [...] Long M.D. 11/18/2024 9:26 AM Dictation Location: [place] [address] Electronically authenticated by: [id number] Y Date: 11/18/2024 09:26 Dictated By: Madie Long M.D. Signed By: 11/18/24 0928 DD/ 5 TD/TT: Chief Strategy Officer: [facility] Radiology, Radiologist, - 11/18/[address] [address] Ultrasound Report Signed Patient: JANINA MARTEL MR#: [id number] : 1990 Acct:[id number] Age/Sex: 34 / F ADM Date: 11/18/24 Loc: [facility] 250-[address]: Sammie Higginbotham D.O. Ordering Physician: Sammie Higginbotham D.O. Date of Service: 11/18/24 Procedure(s): US OB BPP w non-stress Accession Number(s): [id number] cc: Sammie Higginbotham D.O.; Physician,Non-Staff Mylene The [place] [address] Patient Name: JANINA MARTEL MRN: [id number]:[id number] date: 1990 Sex: F Assigned Patient Location: [facility] Current Patient Location: [facility] Accession/Order Number: [id number] Exam Date: 11/18/2024 09:24 Report Date: 11/18/2024 [...] Long M.D. 11/18/2024 9:26 AM Dictation [facility] Electronically authenticated by: [id number] Y Date: 11/18/2024 09:26 Dictated By: Madie Long M.D. Signed By: 11/18/24927 DD/ 5 TD/TT: Chief Strategy Officer: [facility] Radiology Study observation (narrative) [facility] OB BPP W NON-STRESS Ordered By: Radiologist Radiology on 11-18-2024 [facility] Work Phone: TBH TOTAL PROTEIN 24 HOUR UR INEon 11-13-2024 Interpretation and review of laboratory results Abnormal [facility] [employer] re Protein (U) [Mass/Vol] 10.8 mg/dL NINF - 11.9 mg/dL [facility] TOTAL PROTEIN 24 HOUR URINE 302.4 High [facility] TOTAL VOLUME 24 HOUR URINE 2800 mL/24hr [facility] Urinalysis macro (dipstick) panel (U)on 11-13-2024 Bilirubin, UA Negative Negative - 4(70) +++ mg/dL [facility] Blood, UA Negative Negative - 50 Dario/mcL [facility] Clarity, UA Clear [facility] [employer] re Color, UA Yellow [facility] Gi[facility] Glucose, UA Negative Negative - 1999(110) ++++ mg/dL [facility] Interpretation and review of laboratory results Abnormal [facility] re Ketones, UA Positive Negative - 160(16) ++++ mg/dL [facility] Comment on above: 40 Leukocytes, UA Trace Negative - 500+++ Oksana/mcL [facility] Nitrite, UA Negative Negative - Positive [facility] pH, UA 6.5 5 - 9 [facility] Gi[facility] Protein, UA Negative Negative - 1999(20) ++++ mg/dL [facility] Spec Grav, UA 1.005 1 - 1.03 [facility] Urobilinogen, UA 0.2 0.2 - 12 mg/dL [facility] US OB BPP W NON-STRESS on 11-12-2024 [facility] [address] [place] [address] Ultrasound Report Signed Patient: JANINA MARTEL MR#: [id number] : 1990 Acct:[id number] Age/Sex: 34 / F ADM Date: 11/12/24 Loc: [facility] 254-[address]: Sammie Higginbotham D.O. Ordering Physician: Sammie Higginbotham D.O. Date of Service: 11/12/24 Procedure(s): US OB BPP w non-stress Accession Number(s): [id number] cc: Sammie Higginbotham D.O.; Physician,Non-Staff M[place] [address] Patient Name: JANINA MARTEL MRN: [facility]:[id number] date: 1990 Sex: F Assigned Patient Location: [facility] Current Patient Location: [facility] Accession/Order Number: [id number] Exam Date: 11/12/2024 12:13 Report Date: 11/12/2024 [...] Long M.D. 11/12/2024 12:14 PM Dictation Location: [place] [address] Electronically authenticated by: [id number] Y Date: 11/12/2024 12:14 Dictated By: Madie Long M.D. Signed By: 11/12/24 1217 DD/ 1214 TD/TT: Chief Strategy Officer: [facility] Radiology, Radiologist, MD - 11/12/2024 [place] [address] Ultrasound Report Signed Patient: JANINA MARTEL MR#: [id number] : 1990 Acct:[id number] Age/Sex: 34 / F ADM Date: 11/12/24 Loc: [facility] 254-[address]: Sammie Higginbotham D.O. Ordering Physician: Sammie Higginbotham D.O. Date of Service: 11/12/24 Procedure(s): US OB BPP w non-stress Accession Number(s): [id number] cc: Sammie Higginbotham D.O.; Physician,Non-Staff Mylene The [address] [address] Patient Name: JANINA MARTEL MRN: [facility]:[id number] date: 1990 Sex: F Assigned Patient Location: [facility] Current Patient Location: [facility] Accession/Order Number: [id number] Exam Date: 11/12/2024 12:13 Report Date: 11/12/2024 [...] Long M.D. 11/12/2024 12:14 PM Dictation Location: [place] [address] Electronically authenticated by: [id number] Y Date: 11/12/2024 12:14 Dictated By: Madie Long M.D. Signed By: 11/12/24 1217 DD/ 1214 TD/TT: Chief Strategy Officer: [facility] Radiology Study observation (narrative) [facility] US OB BPP W NON-STRESS Ordered By: Radiologist Radiology on 11-12-2024 [facility] [employer] Work Phone: US OB FOLLOW UP [...] II, MD, PHD at 30-Oct-2024 11:19:03 PM [facility] Normal Not Available Comment on above: Order Comment: US OB SCAN FOR GROWTH Estimated Date of Delivery: 01/06/25 Gestational Age as of 10/01/2024: 26w1d Urinalysis macro (dipstick) panel (U)on 10-30-2024 Bilirubin, UA Negative Negative - 4(70) +++ mg/dL [facility] Blood, UA Negative Negative - 50 Dario/mcL [facility] Clarity, UA Clear [facility] Color, UA Yellow [facility] Glucose, UA Negative Negative - 1999(110) ++++ mg/dL [facility] Interpretation and review of laboratory results Abnormal [facility] Ketones, UA Negative Negative - 160(16) ++++ mg/dL [facility] Leukocytes, UA Positive Negative - 500+++ Oksana/mcL [facility] Healthcare Comment on above: small Nitrite, UA Negative Negative - Positive [facility] pH, UA 7 5 - 9 [facility] Protein, UA Negative Negative - 1999(20) ++++ mg/dL [facility] Spec Grav, UA 1.01 1 - 1.03 [facility] Urobilinogen, UA 0.2 0.2 - 12 mg/dL [facility] Urinalysis macro (dipstick) panel (U)on 09-02-2024 Bilirubin, UA Negative Negative - 4(70) +++ mg/dL [facility] Blood, UA Negative Negative - 50 Dario/mcL [facility] Clarity, UA Clear [facility] Color, UA Yellow [facility] Glucose, UA Negative Negative - 1999(110) ++++ mg/dL [facility] Interpretation and review of laboratory results Abnormal [facility] Ketones, UA Negative Negative - 160(16) ++++ mg/dL [facility] Leukocytes, UA Positive Negative - 500+++ Oksana/mcL [facility] Healthcare Comment on above: Large Nitrite, UA Negative Negative - Positive [facility] Healthcare pH, UA 7 5 - 9 [facility] Protein, UA Negative Negative - 1999(20) ++++ mg/dL [facility] Spec Grav, UA 1.01 1 - 1.03 [facility] Urobilinogen, UA 0.2 0.2 - 12 mg/dL [facility] US OB 14+ [...] II, MD, PHD at 22-Aug-2024 08:46:17 AM [facility] Normal Not Available Comment on above: Order Comment: US OB ANATOMY SINGLE W US OB CERVICAL LENGTH Estimated Date of Delivery: 01/06/25 Gestational Age as of 08/05/2024: 18w0d IGP,APTIMA HPV,AGE GDLNon AGE GDLN ACOG TESTING Note . [facility] Comment on above: TESTS RESULT FLAG UN ITS REF RANGE LAB Clinician Provided Cytology Information Source.............Cervix Other.............. No. of containers..01 ThinPrep Vial Age Algo ACOG Maria Antonia... 30 FLAG LEGEND: L-Low Normal,H-High Normal,LL-Alert Low,HH-Alert High <-Panic Low,>-Panic High,A-Abnormal,AA-Critical Abnormal Performed at: 01 =G [address] [place] [address] Asha Garza MD, HPV APTIMA Negative Negative [facility] Comment on above: This nucleic acid am plification test detects fourteen high- risk HPV types (16,18,31,33,35,39,45,51,52,56,58,59,66,68) without differentiation. Performed at: = - [address] [id number] [employer]: Asha Garza MD, Phone: [phone] Performed at: - [address] [id number] [employer]: Asha Garza MD, Phone: [phone] IGP, APTIMA HPV, RFX 16/18,45 Note . [facility] Comment on above: TESTS RESULT FLAG UN ITS REF RANGE LAB DIAGNOSIS: 02 NEGATIVE FOR INTRAEPITHELIAL LESION OR MALIGNANCY. Specimen adequacy: 02 Satisfactory for evaluation. Endocervical and/or squamous metaplastic cells (endocervical component) are present. Performed by: 02 Jojo Pablo Plate Maker (ASCP) . 02 Note: Note 02 The [...] High,A-Abnormal,AA-Critical Abnormal Performed at: 02 [facility] [address] [place] [address] Asha Garza MD, SPATULA-ALONE CERVIX [facility] RECURRENT VAGINITIS (HTRX)on 08-07-2024 ATOPOBIUM VAGINAE 0 [facility] ATOPOBIUM VAGINAE Not detected [facility] BVAB 2,3 (BACTERIAL VAGINOSIS ASSOCIATED BACTERIA 2, 3); MOBILUNCUS SPP 0 [facility] BVAB 2,3 (BACTERIAL VAGINOSIS ASSOCIATED BACTERIA 2, 3); MOBILUNCUS SPP Not detected [facility] ELODIA ALBICANS, PARAPSILOSIS, TROPICALIS 0 [facility] ELODIA ALBICANS, PARAPSILOSIS, TROPICALIS Not detected [facility] ELODIA GLABRATA 0 [facility] ELODIA GLABRATA Not detected [facility] ELODIA KRUSEI 0 [facility] Healt hcare ELODIA KRUSEI Not detected [facility] Hea lthcare CHLAMYDIA TRACHOMATIS 0 [facility] CHLAMYDIA TRACHOMATIS Not detected [facility] GARDNERELLA VAGINALIS 0 [facility] GARDNERELLA VAGINALIS Not detected [facility] MEGASPHAERA (TYPES 1, 2) 0 [facility] MEGASPHAERA (TYPES 1, 2) Not detected [facility] MYCOPLASMA GENITALIUM 0 [facility] MYCOPLASMA GENITALIUM Not detected [facility] NEISSERIA GONORRHOEAE 0 [facility] NEISSERIA GONORRHOEAE Not detected [facility] TRICHOMONAS VAGINALIS 0 [facility] TRICHOMONAS VAGINALIS Not detected [facility] GLUCOSE TOLERANCE 3 HOURon 0 08-03-2024 GLUCOSE TOLERANCE 3 HOUR mg/dL [facility] Comment on above: GLU FAST 94 (<95) Co l: 08/03/24 0809 GLU 1HR 163 (<180) Col: 08/03/24 0912 GLU 2HR 114 (<155) Col: 08/03/24 1012 GLU 3HR 109 (<140) Col: 08/03/24 1112 [facility] GLUCOSE 1 HOURon 07-27-2024 Glucose [Mass/Vol] 151 mg/dL High NINF - 13 0 mg/dL [facility] Interpretation and review of laboratory results [facility]normal [facility] ALL CBC WITH AUTO DIFFon BASOPHILS ABSOLUTE AUTO 0 [facility] Basophils/100 WBC (Bld) 0.3 % 0.2 - 2.0 % [facility] Eosinophils/100 WBC (Bld) 0.2 % Low 0.9 - 7.0 % [facility] Erythrocyte distribution width (RBC) [Ratio] 13.5 % 11.0 - 15.0 % [facility] Hematocrit (Bld) [Volume fraction] 36 % 36.0 - 48.0 % [facility] Hemoglobin (Bld) [Mass/Vol] 12.5 g/dL 12.0 - 16.0 g/dL [facility] IMMATURE GRANULOCYTES ABS AUTO 0.05 High [facility] Immature granulocytes/100 WBC (Bld) 0.4 % 0.0 - 0.5 % [facility] Interpretation and review of laboratory results [facility]normal [facility] LYMPHOCYTES ABSOLUTE AUTO 2.1 [facility] Lymphocytes/100 WBC (Bld) 16 % Low 20.5 - 60.0 % [facility] MCH (RBC) [Entitic mass] 30.1 pg 26.7 - 34.0 pg [facility] MCHC (RBC) [Mass/Vol] 34.7 g/dL 29.9 - 35.2 g/dL [facility] MCV (RBC) [Entitic vol] 86.7 fL 81.0 - 99.0 fL [facility] MONOCYTES ABSOLUTE AUTO 0.9 High [facility] Monocytes/100 WBC (Bld) 6.6 % 1.7 - 12.0 % [facility] NEUTROPHILS ABSOLUTE AUTO 9.9 High [facility] Neutrophils/100 WBC (Bld) 76.5 % High 43.0 - 75.0 % [facility] Platelet mean volume (Bld) [Entitic vol] 10.7 fL 9.5 - 13.5 fL [facility] TBH EO # 0 [facility] TBH PLT 276 [facility] TB RBC 4.15 Low [facility] TBH WBC 12.9 High [facility] HCG ( test) Ql (U)o n 06-07-2024 Interpretation and review of laboratory results Abnormal [facility] re Preg Test, Ur Positive Negative [facility] US OB TRANSVAGINALon 025 US [...] x 4.7 cm (8 weeks, 3 days). [place] rump length is 2.5 cm (9 weeks, [...] UA Negative Negative - 4(70) +++ mg/dL [facility] Blood, UA Negative Negative - 50 Dario/mcL [facility] Clarity, UA Clear [facility] re Color, UA Yellow [facility] Glucose, UA Negative Negative - 1999(110) ++++ mg/dL [facility] Interpretation and review of laboratory results Normal [facility] re Ketones, UA Negative Negative - 160(16) ++++ mg/dL [facility] Leukocytes, UA Negative Negative - 500+++ Oksana/mcL [facility] Nitrite, UA Negative Negative - Positive [facility] pH, UA 5.5 5 - 9 [facility] e Protein, UA Negative Negative - 1999(20) ++++ mg/dL [facility] Spec Grav, UA 1.015 1 - 1.03 [facility] Urobilinogen, UA 0.2 0.2 - 12 mg/dL [facility] Health[facility] TBH PREG QUANT HCGon 024 HCG QUANTITATIVE <1 mIU/mL [facility] Hea lthcare Comment on above: 5-50 0.2-1 WEEK 50-500 1-2 WEEKS 100-5,000 2-3 WEEKS 500-10,000 3-4 WEEKS 1,000-50,000 4-5 WEEKS 10,000-100,000 5-6 WEEKS 15,000-200,000 6-8 WEEKS 10,000-100,000 2-3 MONTHS [facility] TBH PREG QUANT HCGon 10-25-2 024 HCG QUANTITATIVE 15 mIU/mL [facility] Comment on above: 5-50 0.2-1 WEEK 50-500 1-2 WEEKS 100-5,000 2-3 WEEKS 500-10,000 3-4 WEEKS 1,000-50,000 4-5 WEEKS 10,000-100,000 5-6 WEEKS 15,000-200,000 6-8 WEEKS 10,000-100,000 2-3 MONTHS [facility] TBH PREG QUANT HCGon 10-21-2 024 HCG QUANTITATIVE 22 mIU/mL [facility] ltare Comment on above: 5-50 0.2-1 WEEK 50-500 1-2 WEEKS 100-5,000 2-3 WEEKS 500-10,000 3-4 WEEKS 1,000-50,000 4-5 WEEKS 10,000-100,000 5-6 WEEKS 15,000-200,000 6-8 WEEKS 10,000-100,000 2-3 MONTHS [facility] TBH PREG QUANT HCGon 10-19-2 024 HCG QUANTITATIVE 32 mIU/mL [facility] ltare Comment on above: 5-50 0.2-1 WEEK 50-500 1-2 WEEKS 100-5,000 2-3 WEEKS 500-10,000 3-4 WEEKS 1,000-50,000 4-5 WEEKS 10,000-100,000 5-6 WEEKS 15,000-200,000 6-8 WEEKS 10,000-100,000 2-3 MONTHS [facility] PAP ACOG PANEL 2: 21 to 29on 09-22-2021 . . Normal [facility] Comment on above: Performed By: #### [id number] #### [facility] [address] [place] [address] Dr. Yariel Huynh Age Gdln ACOG Testing 21-29 Normal [facility] Comment on above: Performed By: #### [id number] #### [facility] [address] [place] [address] Dr. Yariel Huynh DIAGNOSIS: Comment Normal [facility] Comment on above: Result Comment: NEGA TIVE FOR INTRAEPITHELIAL LESION OR MALIGNANCY. Performed By: #### [id number] #### [facility] [address] [place] [address] Dr. Yariel Huynh Methodology: Comment Normal [facility] Comment on above: Result Comment: This liquid based ThinPrep(R) pap test was screened with the use of an image guided system. Performed By: #### [id number] #### [facility] [address] [place] [address] Dr. Yariel Huynh Note: Comment [facility] Comment on above: Result Comment: The Pap smear is a screening test designed to aid in the detection of premalignant and malignant conditions of the uterine cervix. It is not a diagnostic procedure and should not be used as the sole means of detecting cervical cancer. Both false-positive and false-negative reports do occur. . Performed By: #### [id number] #### [facility] [address] [place] [address] Dr. Yariel Huynh Performed by: Comment Normal [facility] Comment on above: Result Comment: Carole Lee, Plate Maker (ASCP) Performed By: #### 4 [id number] #### [facility] [address] [place] [address] Dr. Yariel Huynh Reflex Criteria: Comment Normal [facility] Comment on above: Result Comment: The HPV DNA reflex criteria were not met with this specimen result therefore, no HPV testing was performed. . Performed By: #### 4 [id number] #### [facility] [address] [place] [address] Dr. Yariel Huynh Specimen adequacy: Comment Normal [facility] Comment on above: Result Comment: Sati sfactory for evaluation. Endocervical and/or squamous metaplastic cells (endocervical component) are present. Performed By: #### 4 [id number] #### [facility] [address] [place] [address] Dr. Yariel Huynh RUBELLA AB IGGon 12-10-2020 Rubella Antibodies, IgG 1.46 index Normal Immune >0.99 [facility] Comment on above: Result Comment: Non- immune <0.90 Equivocal 0.90 - 0.99 Immune >0.99 Performed By: #### R [id number] #### [facility] [address] [place] [address] Clyde Ramachandran CBC AUTO DIFFon 12-09-2020 BASO # 0.1 103/ul Normal 0.0-0.1 [facility] Comment on above: Performed By: #### 4 [id number] #### [facility] [address] [place] [address] Dr. Yariel Huynh Basophils/100 WBC (Bld) 0.3 % Normal 0.2-2.0 [facility] Comment on above: Performed By: #### 4 [id number] #### [facility] [address] [place] [address] Dr. Yariel Huynh EO # 0.0 103/ul Normal 0.0-0.7 [facility] Comment on above: Performed By: #### 4 [id number] #### [facility] [address] [place] [address] Dr. Yariel Huynh Eosinophils/100 WBC (Bld) 0.1 % Critically low 0.9-7.0 [facility] Comment on above: Performed By: #### 4 [id number] #### [facility] [address] [place] [address] Dr. Yariel Huynh Erythrocyte distribution width (RBC) [Ratio] 13.9 % Normal 11.0-15.0 [facility] Comment on above: Performed By: #### 4 [id number] #### [facility] [address] [place] [address] Dr. Yariel Huynh Hematocrit (Bld) [Volume fraction] 29.5 % Critically low 36.0-48.0 [facility] Comment on above: Performed By: #### 4 [id number] #### [facility] [address] [address] [address] Yariel Huynh Hemoglobin (Bld) [Mass/Vol] 9.3 g/dL Critically low 12.0-16.0 [facility] Comment on above: Performed By: #### 4 [id number] #### [facility] [address] [place] [address] Dr. Yariel Huynh IG # 0.08 10e3/ul Critically high 0.00-0.03 [facility] Comment on above: Performed By: #### 4 [id number] #### [facility] [address] [place] [address] Dr. Yariel Huynh IG % 0.5 % Normal 0.0-0.5 [facility] Comment on above: Performed By: #### 4 [id number] #### [facility] [address] [place] [address] Dr. Yariel Huynh LYMPH # 1.7 103/ul Normal 1.2-3.8 [facility] Comment on above: Performed By: #### 4 [id number] #### [facility] [address] [place] [address] Dr. Yariel Huynh Lymphocytes/100 WBC (Bld) 10.8 % Critically low 20.5-60.0 [facility] Comment on above: Performed By: #### 4 [id number] #### [facility] [address] [place] [address] Dr. Yariel Huynh MANUAL DIFF REQ NO Normal [facility] Comment on above: Performed By: #### 4 [id number] #### [facility] [address] [place] [address] Dr. Yariel Huynh MCH (RBC) [Entitic mass] 26.2 pg Critically low 26.7-34.0 [facility] Comment on above: Performed By: #### 4 [id number] #### [facility] [address] [place] [address] Dr. Yariel Huynh MCHC (RBC) [Mass/Vol] 31.5 g/dL Normal 29.9-35.2 [facility] Comment on above: Performed By: #### 4 [id number] #### [facility] [address] [place] [address] Dr. Yariel Huynh MCV (RBC) [Entitic vol] 83.1 fL Normal 81.0-99.0 [facility] Comment on above: Performed By: #### 4 [id number] #### [facility] [address] [place] [address] Dr. Yariel Huynh MONO # 0.8 103/ul Normal 0.3-0.8 [facility] Comment on above: Performed By: #### 4 [id number] #### [facility] [address] [place] [address] Dr. Yariel Huynh Monocytes/100 WBC (Bld) 5.2 % Normal 1.7-12.0 [facility] Comment on above: Performed By: #### 4 [id number] #### [facility] [address] [place] [address] Dr. Yariel Huynh NEUT # 12.8 103/ul Critically high 1.4-6.5 [facility] Comment on above: Performed By: #### 4 [id number] #### [facility] [address] [place] [address] Dr. Yariel Huynh Neutrophils/100 WBC (Bld) 83.1 % Critically high 43.0-75.0 [facility] Comment on above: Performed By: #### 4 [id number] #### [facility] [address] [place] [address] Dr. Yariel Huynh Platelet mean volume (Bld) [Entitic vol] 12.6 fL Normal 9.5-13.5 [facility] Comment on above: Performed By: #### 4 [id number] #### [facility] [address] [place] [address] Dr. Yariel Huynh PLT 203 103/ul Normal 150-450 [facility] Comment on above: Performed By: #### 4 [id number] #### [facility] [address] [place] [address] Dr. Yariel Huynh RBC 3.55 106/ul Critically low 4.20-5.40 [facility] Comment on above: Performed By: #### 4 [id number] #### [facility] [address] [place] [address] Dr. Yareil Huynh WBC 15.4 103/ul Critically high 4.0-11.0 [facility] Comment on above: Performed By: #### 4 [id number] #### [facility] [address] [place] [address] Dr. Yariel Huynh ASYMPTOMATIC COVID-19 ANTIGE Non 12-08-2020 EUA Statement SEE BELOW Normal [facility] Comment on above: Result Comment: This [...] is revoked sooner. Performed By: #### 4 [id number] #### [facility] [address] [place] [address] Dr. Yariel Huynh SARS-CoV-2 (COVID-19) RNA ESTEBAN+probe Ql (Unsp spec) Negative Normal NEGATIVE [facility] Comment on above: Result Comment: Nega tive results are presumptive. They do not preclude infection and should not be used as the sole basis for treatment decisions. Additional confirmatory testing by a molecular method should be considered. Performed By: #### 4 [id number] #### [facility] [address] [place] [address] Dr. Yariel Alejandre 12-08-2020 Urea nitrogen [Mass/Vol] 15.0 mg/dL Normal 7.0-17.0 [facility] Comment on above: Performed By: #### 4 [id number] #### [facility] [address] [place] [address] Dr. Yariel Huynh CBC AUTO DIFFon 12-08-2020 BASO # 0.0 103/ul Normal 0.0-0.1 [facility] Comment on above: Performed By: #### 4 [id number] #### [facility] [address] [place] [address] Dr. Yariel Huynh Basophils/100 WBC (Bld) 0.3 % Normal 0.2-2.0 [facility] Comment on above: Performed By: #### 4 [id number] #### [facility] [address] [place] [address] Dr. Yariel Huynh EO # 0.0 103/ul Normal 0.0-0.7 [facility] Comment on above: Performed By: #### 4 [id number] #### [facility] [address] [place] [address] Dr. Yariel Huynh Eosinophils/100 WBC (Bld) 0.4 % Critically low 0.9-7.0 [facility] Comment on above: Performed By: #### 4 [id number] #### [facility] [address] [place] [address] Dr. Yariel Huynh Erythrocyte distribution width (RBC) [Ratio] 13.8 % Normal 11.0-15.0 [facility] Comment on above: Performed By: #### 4 [id number] #### [facility] [address] [place] [address] Dr. Yariel Huynh Hematocrit (Bld) [Volume fraction] 31.8 % Critically low 36.0-48.0 [facility] Comment on above: Performed By: #### 4 [id number] #### [facility] [address] [place] [address] Dr. Yariel Huynh Hemoglobin (Bld) [Mass/Vol] 10.1 g/dL Critically low 12.0-16.0 [facility] Comment on above: Performed By: #### 4 [id number] #### [facility] [address] [place] [address] Dr. Yariel Huynh IG # 0.07 10e3/ul Critically high 0.00-0.03 [facility] Comment on above: Performed By: #### 4 [id number] #### [facility] [address] [place] [address] Dr. Yariel Huynh IG % 0.7 % Critically high 0.0-0.5 [facility] Comment on above: Performed By: #### 4 [id number] #### [facility] [address] [address] [address] Yariel Huynh LYMPH # 2.3 103/ul Normal 1.2-3.8 [facility] Comment on above: Performed By: #### 4 [id number] #### [facility] [address] [address] [address] Yariel Huynh Lymphocytes/100 WBC (Bld) 22.7 % Normal 20.5-60.0 [facility] Comment on above: Performed By: #### 4 [id number] #### [facility] [address] [place] [address] Dr. Yariel Huynh MANUAL DIFF REQ NO Normal [facility] Comment on above: Performed By: #### 4 [id number] #### [facility] [address] [place] [address] Dr. Yariel Huynh MCH (RBC) [Entitic mass] 26.7 pg Normal 26.7-34.0 [facility] Comment on above: Performed By: #### 4 [id number] #### [facility] [address] [place] [address] Dr. Yariel Huynh MCHC (RBC) [Mass/Vol] 31.8 g/dL Normal 29.9-35.2 [facility] Comment on above: Performed By: #### 4 [id number] #### [facility] [address] [place] [address] Dr. Yariel Huynh MCV (RBC) [Entitic vol] 84.1 fL Normal 81.0-99.0 [facility] Comment on above: Performed By: #### 4 [id number] #### [facility] [address] [place] [address] Dr. Yariel Huynh MONO # 0.6 103/ul Normal 0.3-0.8 [facility] Comment on above: Performed By: #### 4 [id number] #### [facility] [address] [address] [address] Yariel Huynh Monocytes/100 WBC (Bld) 6.3 % Normal 1.7-12.0 [facility] Comment on above: Performed By: #### 4 [id number] #### [facility] [address] [place] [address] Dr. Yariel Huynh NEUT # 7.0 103/ul Critically high 1.4-6.5 [facility] Comment on above: Performed By: #### 4 [id number] #### [facility] [address] [place] [address] Dr. Yariel Huynh Neutrophils/100 WBC (Bld) 69.6 % Normal 43.0-75.0 [facility] Comment on above: Performed By: #### 4 [id number] #### [facility] [address] [place] [address] Dr. Yariel Huynh Platelet mean volume (Bld) [Entitic vol] 12.9 fL Normal 9.5-13.5 [facility] Comment on above: Performed By: #### 4 [id number] #### [facility] [address] [place] [address] Dr. Yariel Huynh PLT 193 103/ul Normal 150-450 [facility] Comment on above: Performed By: #### 4 [id number] #### [facility] [address] [place] [address] Dr. Yariel Huynh RBC 3.78 106/ul Critically low 4.20-5.40 [facility] Comment on above: Performed By: #### 4 [id number] #### [facility] [address] [place] [address] Dr. Yariel Huynh WBC 10.1 103/ul Normal 4.0-11.0 [facility] Comment on above: Performed By: #### 4 [id number] #### [facility] [address] [place] [address] Dr. Yariel Huynh CREATININEon 12-08-2020 Creatinine [Mass/Vol] 0.80 mg/dL Normal 0.52-1.04 [facility] Comment on above: Performed By: #### L DH, URIC, AST, ALT, BUN, CREA #### [facility] [address] [place] [address] Clyde Ramachandran EGFR-AF CHINESE >60 Normal >=60 [facility] Comment on above: Performed By: #### L DH, URIC, AST, ALT, BUN, CREA #### [facility] [address] [place] [address] Clyde Ramachandran EGFR-NON AF CHINESE >60 Normal >=60 [facility] Comment on above: Performed By: #### L DH, URIC, AST, ALT, BUN, CREA #### [facility] [address] [place] [address] Clyde Ramachandran DRUG SCREEN RAPID (URINE)on 12-08-2020 AMP Negative Normal NEGATIVE [facility] Comment on above: Performed By: #### 4 [id number] #### [facility] [address] [place] [address] Dr. Yariel Huynh BAR Negative Normal NEGATIVE [facility] Comment on above: Performed By: #### 4 [id number] #### [facility] [address] [place] [address] Dr. Yariel Huynh BUP Negative Normal NEGATIVE [facility] Comment on above: Performed By: #### 4 [id number] #### [facility] [address] [place] [address] Dr. Yariel Huynh BZO Negative Normal NEGATIVE [facility] Comment on above: Performed By: #### 4 [id number] #### [facility] [address] [place] [address] Dr. Yariel Huynh ROSA Negative Normal NEGATIVE [facility] Comment on above: Performed By: #### 4 [id number] #### [facility] [address] [place] [address] Dr. Yariel Huynh CUT-OFFS SEE BELOW Normal [facility] Comment on above: Result Comment: AMP (Amphetamine): 500ng/mL, BAR (Barbituates): 200 ng/mL, BZO (Benzodiazepines): 150 ng/mL, BUP (Buprenorphine): 10 ng/mL, ROSA (Cocaine): 150 ng/mL, mAMP (Methamphetamine): 500 ng/mL, MTD (Methadone): 200 ng/mL, OPI (Opiates): 100 ng/mL, OXY (Oxycodone): 100 ng/mL, PCP (Phencyclidine): 25 ng/mL, PPX (Propoxyphene): 300 ng/mL, THC (Cannabinoids): 50 ng/mL, TCA (Trycyclic Antidepressants): 300 ng/mL Performed By: #### 4 [id number] #### [facility] [address] [place] [address] Dr. Yariel Huynh DRUG CUT HEADER DRUG CLASS TEST SYSTEM CUT-OFF CONCENTRATIONS ARE FOLLOWS: Normal [facility] Comment on above: Performed By: #### 4 [id number] #### [facility] [address] [place] [address] Dr. Yariel Huynh mAMP Negative Normal NEGATIVE [facility] Comment on above: Performed By: #### 4 [id number] #### [facility] [address] [place] [address] Dr. Yariel Huynh MTD Negative Normal NEGATIVE [facility] Comment on above: Performed By: #### 4 [id number] #### [facility] [address] [place] [address] Dr. Yariel Huynh OPI Negative Normal NEGATIVE [facility] Comment on above: Performed By: #### 4 [id number] #### [facility] [address] [place] [address] Dr. Yariel Huynh OXY Negative Normal NEGATIVE [facility] Comment on above: Performed By: #### 4 [id number] #### [facility] [address] [place] [address] Dr. Yariel Huynh PCP Negative Normal NEGATIVE [facility] Comment on above: Performed By: #### 4 [id number] #### [facility] [address] [place] [address] Dr. Yariel Huynh PPX Negative Normal NEGATIVE [facility] Comment on above: Performed By: #### 4 [id number] #### [facility] [address] [place] [address] Dr. Yariel Huynh TCA Negative Normal NEGATIVE [facility] Comment on above: Performed By: #### 4 [id number] #### [facility] [address] [place] [address] Dr. Yariel Huynh THC Negative Normal NEGATIVE [facility] Comment on above: Performed By: #### 4 [id number] #### [facility] [address] [place] [address] Dr. Yariel Huynh LDHon 12-08-2020 LDH 163 U/L Normal 122-222 [facility] Comment on above: Performed By: #### L DH, URIC, AST, ALT, BUN, CREA #### [facility] [address] [place] [address] Clyde Ramachandran SGOTon 12-08-2020 AST [Catalytic activity/Vol] 15 U/L Normal 14-36 [facility] Comment on above: Performed By: #### L DH, URIC, AST, ALT, BUN, CREA #### [facility] [address] [place] [address] Clyde [facility] 12-[facility]-2020 ALT [Catalytic activity/Vol] 12 U/L Normal 9-52 [facility] Comment on above: Performed By: #### L DH, URIC, AST, ALT, BUN, CREA #### [facility] [address] [place] [address] Clyde Madie TYPE AND SCREENon 12-08-2020 TYPE AND SCREEN Negative Normal [facility] Comment on above: Performed By: #### T NS #### [facility] [address] [place] [address] Clyde Ramachandran URIC ACID SERUMon 12-08-2020 Urate [Mass/Vol] 5.0 mg/dL Normal 2.5-6.2 [facility] Comment on above: Performed By: #### L DH, URIC, AST, ALT, BUN, CREA #### [facility] [address] [place] [address] Clyde Ramachandran US PREG BIOPHY W NON [...] PABLO Date: 2020-12-08 08:45 Normal [facility] US PREG BIOPHY W NON STRESSo [...] CORTES Date: 2020-12-01 10:52 Normal [facility] Vital Signs Date Time Vital Sign Value Performing Clinician Roxann torres 11-27-2024 11:41-0400 Body weight 78.47 kg Sammie Neftaly DO Work Phone: [facility] 11-27-2024 11:41-0400 Diastolic blood pressure 86 mm[Hg] Sammie Neftaly DO Work Phone: [facility] 11-27-2024 11:41-0400 Systolic blood pressure 140 mm[Hg] Sammie Neftaly DO Work Phone: [facility] 11-13-2024 10:28-0400 Body weight 78.65 kg Diya GEE Work Phone: [facility] 11-13-2024 10:28-0400 Diastolic blood pressure 78 mm[Hg] Diya GEE Work Phone: [facility] 11-13-2024 10:28-0400 Systolic blood pressure 130 mm[Hg] Diya GEE Work Phone: [facility] 10-30-2024 10:31-0400 Body weight 78.53 kg Sammie Neftaly DO Work Phone: [facility] 10-30-2024 10:31-0400 Diastolic blood pressure 78 mm[Hg] Sammie Neftaly DO Work Phone: [facility] 10-30-2024 10:31-0400 Systolic blood pressure 120 mm[Hg] Sammie Neftaly DO Work Phone: [facility] 10-01-2024 09:38-0400 Body weight 75.48 kg Lin Sellers DETONATOR [employer] Work Phone: [facility] 10-01-2024 09:38-0400 Diastolic blood pressure 76 mm[Hg] Lin Sellers DETONATOR MAKER Work Phone: [facility] 10-01-2024 09:38-0400 Systolic blood pressure 120 mm[Hg] Lin Verito DETONATOR MAKER Work Phone: [facility] 09-02-2024 09:46-0400 Body weight 71.85 kg Sammie Neftaly DO Work Phone: [facility] 09-02-2024 09:46-0400 Diastolic blood pressure 82 mm[Hg] Sammie Neftaly DO Work Phone: [facility] 09-02-2024 09:46-0400 Systolic blood pressure 122 mm[Hg] Sammie Neftaly DO Work Phone: [facility] 08-05-2024 09:52-0500 Body weight 68.49 kg Diya GEE Work Phone: [facility] 08-05-2024 09:52-0500 Diastolic blood pressure 78 mm[Hg] Diya GEE Work Phone: [facility] 08-05-2024 09:52-0500 Systolic blood pressure 124 mm[Hg] Diya Cuba PA Work Phone: [facility] 07-08-2024 09:52-0500 Body weight 67.31 kg Sammie Neftaly DO Work Phone: [facility] 07-08-2024 09:52-0500 Diastolic blood pressure 70 mm[Hg] Sammie Neftaly DO Work Phone: [facility] 07-08-2024 09:52-0500 Systolic blood pressure 118 mm[Hg] Sammie Neftaly DO Work Phone: [facility] 06-07-2024 09:47-0500 Body weight 66.22 kg Noms Nurse [facility] 06-07-2024 09:47-0500 Diastolic blood pressure 72 mm[Hg] Noms Nurse [facility] 06-07-2024 09:47-0500 Systolic blood pressure 122 mm[Hg] Noms Nurse [facility] Encounters Encounter Date Encounter Type Care Provider Facility Start: 12-02-2024 End: 12-02-2024 Clinisync Result Encounter Sammie Neftaly DO Work Phone: [facility] External Department Unsolicited Start: 12-02-2024 End: 12-02-2024 Clinisync Result Encounter Sammie Neftaly DO Work Phone: [facility] External Department Unsolicited Start: 11-27-2024 End: 11-27-2024 Bamboo flowsheet Sammie Neftaly DO Work Phone: [facility] Start: 11-27-2024 End: 11-27-2024 Bamboo flowsheet Sammie Neftaly DO Work Phone: [facility] Start: 11-27-2024 End: 11-27-2024 Office outpatient visit 15 minutes Sammie Neftaly DO Work Phone: [facility] Comment on above: Third trimester preg champ ([facility]); 34 weeks gestation of ([facility]); Hypertension affecting in third trimester ([facility]); Gestational diabetes mellitus (GDM), antepartum, gestational diabetes method of control unspecified ([facility]); H/O pre-eclampsia in prior , currently ([facility]) Start: 11-27-2024 End: 11-27-2024 ambulatory SAMMIE NEFTALY [...] visit 15 minutes Diya GEE Work Phone: [facility] Comment on above: Hypertension affecti ng in third trimester (Primary Dx); 32 weeks gestation of ; Third trimester Start: 11-13-2024 End: 11-13-2024 ambulatory DIYA ROBLES Not Available Start: 11-12-2024 End: 11-12-2024 Clinisync Result Encounter Sammie Neftaly DO Work Phone: [facility] External Department Unsolicited Start: 11-12-2024 End: 11-12-2024 Clinisync Result Encounter Sammie Neftaly DO Work Phone: [facility] External Department Unsolicited Start: 10-30-2024 End: 10-30-2024 Office outpatient visit 15 minutes Sammie Neftaly DO Work Phone: [facility] Comment on above: 30 weeks gestation o f ; Third trimester ; H/O pre-eclampsia in prior , currently ; Gestational diabetes mellitus (GDM), antepartum, gestational diabetes method of control unspecified Start: 10-30-2024 End: 10-30-2024 ambulatory SAMMIE NEFTALY Not Available Start: 10-01-2024 End: 10-01-2024 Bamboo flowsheet Lin Sellers DETONATOR MAKER Work Phone: [facility] Start: 10-01-2024 End: 10-01-2024 Bamboo flowsheet Lin Sellers DETONATOR MAKER Work Phone: [facility] Start: 10-01-2024 End: 10-01-2024 Office outpatient visit 15 minutes Lin Slelers DETONATOR MAKER Work Phone: [facility] Comment on above: Second trimester pre gnancy; size inconsistent with dates; H/O pre-eclampsia in prior , currently Start: 10-01-2024 End: 10-01-2024 ambulatory LIN VERITO Not Available Start: 09-02-2024 End: 09-02-2024 Bamboo flowsheet Sammie Neftaly DO Work Phone: [facility] Start: 09-02-2024 End: 09-02-2024 Bamboo flowsheet Sammie Neftaly DO Work Phone: [facility] Start: 09-02-2024 End: 09-02-2024 Office outpatient visit 15 minutes Sammie Neftaly DO Work Phone: [facility] Comment on above: Second [...] Patient encounter procedure Diya GEE Work Phone: [facility] Start: 08-05-2024 End: 08-05-2024 ambulatory DIYA [...] Date Procedure Procedure Detail Performing Clinician Start: 12-02-2024 US OB BPP W NON-STRESS Sammie Neftaly DO Work Phone: Start: 11-27-2024 Urnls dip stick/tabl et rgnt non-auto w/o micrscp Sammie Neftaly DO Work Phone: Start: 11-25-2024 OB BPP W NON-STRESS Sammie Neftaly DO [...] Screening for malign ant neoplasm of cervix [facility] Start: 03-15-2028 Screening for malign ant neoplasm of cervix [facility] Start: 02-03-2025 Influenza vaccination Influenz a Vaccine (Season Ended) [facility] Start: 12-11-2024 End: 12-11-2024 Patient encounter procedure 12/11/2024 11:20 AM EDT Routine [facility] [address] [id number] Sammie Higginbotham, DO [address] [place] [address] [facility] Start: 11-27-2024 End: 11-27-2024 [...] AM EDT Ancillary Procedure [facility] [address] [place] [address] [place] [address] [facility] Start: 08-05-2024 End: 09-05-2024 Alpha fetoprotein, maternal Alpha fetoprotein, maternal Lab Routine Need for maternal serum alpha-protein (MSAFP) screening Expected: 08/05/2024 (Approximate), Expires: 09/05/2024 [facility] Comment on above: Expected: 08/05/2024 (Approximate), Expires: 09/05/2024 Start: 08-05-2024 End: 08-05-2025 US for US OB 14+ weeks anatomy scan Imaging Routine Screening, , for anatomic survey Expected: 08/05/2024 (Approximate), Expires: 08/05/2025 [facility] Comment on above: Expected: 08/05/2024 (Approximate), Expires: 08/05/2025 Start: 08-05-2024 End: 08-05-2024 Patient encounter procedure [facility] Comment on above: Arrived Start: 07-08-2024 End: 07-08-2025 Measurement of glucose 1 hour after glucose challenge for glucose tolerance test Glucose tolerance, 1 hour Lab Routine Diabetes mellitus screening Expected: 07/08/2024 (Approximate), Expires: 07/08/2025 [facility] Work Phone: Comment on above: Expected: 07/08/2024 (Approximate), Expires: 07/08/2025 Start: 07-08-2024 End: 07-08-2024 Patient encounter procedure [facility] Comment on above: Arrived Start: 06-07-2024 End: 06-07-2025 ABO/Rh ABO/Rh Lab Routine Missed menses , unspecified gestational age Expected: 06/07/2024 (Approximate), Expires: 06/07/2025 [facility] Comment on above: Expected: 06/07/2024 (Approximate), Expires: 06/07/2025 Start: 06-07-2024 End: 06-07-2025 Blood type and Indirect antibody screen panel - Blood Type and screen Lab Routine Missed menses , unspecified gestational age Expected: 06/07/2024 (Approximate), Expires: 06/07/2025 [facility] Work Phone: Comment on above: Expected: 06/07/2024 (Approximate), Expires: 06/07/2025 Start: 06-07-2024 End: 06-07-2025 Drugs of abuse panel - Urine by Screen method Rapid drug screen, urine Lab Routine , unspecified gestational age Encounter for supervision of normal first in first trimester Expected: 06/07/2024 (Approximate), Expires: 06/07/2025 [facility] Comment on above: Expected: 06/07/2024 (Approximate), Expires: 06/07/2025 Start: 04-19-2024 End: 04-19-2024 ambulatory 04/19/2024 10:00 AM EST Initial [facility] [address] [place] [address] [facility] Start: 04-19-2024 End: 04-19-2024 Professional / ancillary services management 04/19/2024 9:30 AM EST Ancillary Procedure [facility] [address] [place] [address] [facility] Start: 02-04-2024 Influenza vaccination Influenza Vacc ine (#1) [facility] Start: 2013 Screening for malign ant neoplasm of cervix Pap Smear [facility] Bacteria identified in Urine by Culture Urine culture Microbiology Routine Missed menses Ordered: 06/07/2024 [facility] Comment on above: Ordered: 06/07/2024 CBC W Auto Different ial panel - Blood CBC and differential Lab Routine Missed menses , unspecified gestational age Ordered: 06/07/2024 [facility] Comment on above: Ordered: 06/07/2024 CHLAMYDIA TRACHOMATI S (GENITO/STI) CHLAMYDIA TRACHOMATIS (GENITO/STI) Lab Routine Exposure to STD Ordered: 08/05/2024 [facility] Comment on above: Ordered: 08/05/2024 Cytology Cervical or vaginal smear or scraping study Pap Smear Pathology and Cytology Routine Well woman exam with routine gynecological exam Ordered: 08/05/2024 [facility] Comment on above: Ordered: 08/05/2024 Hemoglobin A1c/Hemoglobin.total in Blood Hemoglobin A1c Lab Routine Missed menses , unspecified gestational age Ordered: 06/07/2024 [facility] Comment on above: Ordered: 06/07/2024 Hepatitis B virus surface Ag [Presence] in Serum or Plasma by Immunoassay Hepatitis B surface antigen Lab Routine Missed menses , unspecified gestational age Ordered: 06/07/2024 [facility] Comment on above: Ordered: 06/07/2024 Hepatitis C virus Ab [Presence] in Serum or Plasma by Immunoassay Hepatitis C antibody Lab Routine Missed menses , unspecified gestational age Ordered: 06/07/2024 [facility] Comment on above: Ordered: 06/07/2024 HIV-1/HIV-2 antigen/antibody combination immunoassay HIV-1 and HIV-2 antibodies Lab Routine Missed menses , unspecified gestational age Ordered: 06/07/2024 [facility] Comment on above: Ordered: 06/07/2024 Human papilloma viru s DNA [Presence] in Unspecified specimen by Probe with amplification HPV DNA probe, amplified Microbiology Routine Well woman exam with routine gynecological exam Ordered: 08/05/2024 [facility] Comment on above: Ordered: 08/05/2024 Neisseria gonorrhoea e DNA [Presence] in Unspecified specimen by ESTEBAN with probe detection Neisseria gonorrhea DNA probe, direct Lab Routine Exposure to STD Ordered: 08/05/2024 [facility] Comment on above: Ordered: 08/05/2024 Reagin Ab [Presence] in Serum by RPR RPR Lab Routine Missed menses , unspecified gestational age Ordered: 06/07/2024 [facility] Comment on above: Ordered: 06/07/2024 Rubella antibody, IgG Rubella an tibody, IgG Lab Routine Missed menses , unspecified gestational age Ordered: 06/07/2024 [facility] Comment on above: Ordered: 06/07/2024 SURESWAB(R) ADVANCED VAGINITIS PLUS, TMA SURESWAB(R) ADVANCED VAGINITIS PLUS, TMA Pathology and Cytology Routine Exposure to STD Ordered: 08/05/2024 [facility] Work Phone: Comment on above: Ordered: 08/05/2024 [facility] TOTAL PROTEIN 24 HOUR URINE [facility] TOTAL PROTEIN 24 HOUR URINE Lab Ordered: 11/13/2024 [facility] Comment on above: Ordered: 11/13/2024 Immunizations Immunization Date Immunization Notes Care Provider Fa jessica 05-09-2019 influenza virus vacc ine, unspecified formulation Sammie Higginbotham DO Work Phone: [facility] Payers Date Payer Category Payer Private Health Insurance [facility] MEDICAID [id number] 2017 Medicaid [id number] 1990 Unknown [id number] 2.16.840.1.445010.3.579.2. 593 1992 Unknown [id number] 2.16.840.1.028705.3.579.2. 593 1992 Unknown [id number] 2.16.840.1.367764.3.579.2. 593 1992 Unknown [id number] 2.16.840.1.382024.3.579.2. 593 1992 Unknown [id number] 2.16.840.1.885607.3.579.2. 593 1992 Unknown [id number] 2.16.840.1.861480.3.579.2. 593 1992 Unknown [id number] 2.16.840.1.649962.3.579.2. 593 1992 Unknown [id number] 2.16.840.1.542191.3.579.2. 593 1992 Unknown [id number] 2.16.840.1.185021.3.579.2. 593 1992 Unknown [id number] 2.16.840.1.986138.3.579.2. 1259 1992 Unknown [id number] 2.16.840.1.498019.3.579.2. 1259 1992 Unknown [id number] 2.16.840.1.541315.3.579.2. 1259 1992 Unknown [id number] 2.16.840.1.260380.3.579.2. 1259 1992 Unknown [id number] 2.16.840.1.102227.3.579.2. 1259 1992 Unknown [id number] 2.16.840.1.475349.3.579.2. 9 1992 Unknown [id number] 2.16.840.1.247634.3.579.2. 9 1992 Unknown [id number] 2.16.840.1.367009.3.579.2. 9 1992 Unknown [id number] 2.16.840.1.093697.3.579.2. 9 1992 Unknown [id number] 2.16.840.1.323908.3.579.2. 9 1992 Unknown [id number] 2.16.840.1.897566.3.579.2. 1259 1957 Self-pay [id number] 1957 Unknown [id number] Social History Date Type Detail Facility Tobacco smoking stat [facility] Tobacco smoking consumption unknown [facility] Start: 1990 Sex assigned at Not [...] meal for a total of 4times daily. [id number] Start: 10-01-2024 End: 11-13-2024 1 each by In Vit ro route Daily Use to check FSBS four times daily [id number] Start: 10-01-2024 End: 11-13-2024 Clinical Notes 06-07-2024 [...] to check FSBS. Blood Glucose Monitoring Suppl ([employer] Glucometer) w/Device kit 1 kit, Does not [...] nursing note reviewed. Exam conducted with a basketball assembler present. Vitals: There is no height or weight on file to calculate BMI. BP: 140/86 Patient's last menstrual period was 04/01/2024. ASSESSMENT & PLAN ICD-10-CM 1. Third trimester ([facility]) Z34.93 POCT urinalysis dipstick manually resulted 2. 34 weeks gestation of ([facility]) Z3A.34 3. Hypertension affecting in third trimester ([facility]) O16.3 labetalol (Normodyne) 100 MG tablet 4. Gestational diabetes mellitus (GDM), antepartum, gestational diabetes method of control unspecified ([facility]) O24.419 5. H/O pre-eclampsia in prior , currently ([facility]) O09.299 Return OB: Patient presents today for [...] Sammie Higginbotham DO documented in this encounter [facility] 11-13-2024 History of Presen t illness Narrative [...] of: MARLEN Estrada documented in this encounter [facility] 10-30-2024 History of Presen t illness [...] to check FSBS. Blood Glucose Monitoring Suppl ([employer] Glucometer) w/Device kit 1 kit, Does not [...] nursing note reviewed. Exam conducted with a basketball assembler present. Vitals: There is no height or [...] Sammie Higginbotham DO documented in this encounter [facility] 10-01-2024 History of Presen t illness [...] nursing note reviewed. Exam conducted with a basketball assembler present. Vitals: There is no height or [...] Lin Sellers NP documented in this encounter [facility] 09-02-2024 History of Presen t illness [...] nursing note reviewed. Exam conducted with a basketball assembler present. Vitals: There is no height or [...] Sammie Higginbotham DO documented in this encounter [facility] 08-05-2024 History of Presen t illness [...] nursing note reviewed. Exam conducted with a basketball assembler present. Vitals: There is no height or [...] of: MARLEN Estrada documented in this encounter [facility] 07-08-2024 History of Presen t illness [...] Sammie Higginbotham DO documented in this encounter [facility] 06-07-2024 History of Presen t illness [...] or undercooked meat, and stay away from [facility]. Patient has also been advised to [...] Isabel Keating MA documented in this encounter [facility] Evaluation note Diagnosis Missed menses 9 [...] (HHS-HCC) H/O pre-eclampsia in prior , currently (HHS-HCC) documented in this encounter [facility] Summary Purpose Family History No Family History Records FoundNo Family History Records Found Advance Directives No Advanced Directives Records FoundNo Advanced Directives Records Found Additional Source Comments INFORMATION SOURCE (unrecogn ized section and content) DATE CREATED AUTHOR 11/24/2021 Naya bustamante DATE CREATED AUTHOR 'S ORGANIZ ATION 11/28/2024 [facility] EPIC Care Teams (unrecognized sec tion and content) Pari Mutuel Ticket Cashier Relationship Specialty Start Date End Date Neftaly Sammie, DO [address] [place] [address] PCP [facility] 09/04/23 Pari Mutuel Ticket Cashier Relationship Specialty Start Date End Date NeftalyEmmyy, DO [address] [place] [address] PCP [facility] 09/04/23 Pari Mutuel Ticket Cashier Relationship Specialty Start Date End Date Emmy Higginbothamy, DO [address] [place], [facility] PCP [facility] 09/04/23 Pari Mutuel Ticket Cashier Relationship Specialty Start Date End Date Emmy Higginbothamy, DO [address] [place], [facility] PCP [facility] 09/04/23 Pari Mutuel Ticket Cashier Relationship Specialty Start Date End Date NeftalyEmmyy, DO [address] [place] [address] PCP [facility] 09/04/23 Pari Mutuel Ticket Cashier Relationship Specialty Start Date End Date NeftalyEmmyy, DO [address] [place], [facility] PCP [facility] 09/04/23 Pari Mutuel Ticket Cashier Relationship Specialty Start Date End Date Neftaly Sammie, DO [address] [place] [address] PCP [facility] 09/04/23 Pari Mutuel Ticket Cashier Relationship Specialty Start Date End Date Sammie Higginbotham, DO [address] [place] [address] [facility] 09/04/23 Pari Mutuel Ticket Cashier Relationship Specialty Start Date End Date Sammie Higginbotham, DO [address] [place] [address] PCP [facility] 09/04/23 Pari Mutuel Ticket Cashier Relationship Specialty Start Date End Date Sammie Higginbotham, DO [address] [place] [address] [facility] 09/04/23 Pari Mutuel Ticket Cashier Relationship Specialty Start Date End Date Sammie Higginbotham, DO [address] [place] [address] [facility] 09/04/23 Pari Mutuel Ticket Cashier Relationship Specialty Start Date End Date Sammie Higginbotham, DO [address] [place] [address] [facility] 09/04/23 Reason for Visit (unrecogniz ed [...] BE BASED ON THE PRIMARY CLINICAL RECORDS. [facility]. provides no warranty or guarantee of the accuracy or completeness of information in this document.
[2024-12-05 07:59] VITALS: BP 119/83; PULSE 116
== END 2024-12-05 08:28 | disposition home or self-care (01) ==
LOC: FBCO 07:50 → FBC 07:51
PROVIDERS: Visit Provider Obstetrics & Gynecology
DX: O24.419 Gestational diabetes mellitus in pregnancy, unspecified control (principal); Z3A.35 35 weeks gestation of pregnancy
CPT/HCPCS: 59025

== ENCOUNTER 2024-12-09 09:50 | Outpatient (OUT) | payer OTHER, SELFPAY ==
--- OUTSIDE RECORDS SUMMARY | 2024-11-27 11:17 | XMS_ITS ---
Author Name Auto Generated Organization [facility] Care Team Providers Care Occupational Therapy Asst Name Role Phone SAMMIE AHUMADA Attending Unavailable CHRISSIE ROBLES Attending Unavailable ZITA, SAMMIE Attending Unavailable LISET, CARLOS Attending Unavailable CARLOS HUTCHINS Referring Unavailable ZITA, SAMMIE Attending Unavailable MARGARET, CHRISSIE Attending Unavailable ZITA, SAMMIE Attending Unavailable PROBLEMS No Problem Records Found PROCEDURES No Procedure Records Found RESULTS US OB FOLLOW UP TRANSABDOMINAL APPROACH Observed: 10/30/2024 9:51 AM Status: F Source: [facility] EPIC Order Comment: US OB SCAN FO R GROWTH Estimated Date of Delivery: 01/06/25 Gestational Age as of 10/01/2024: 26w1d EXAM: US OB FOLLOW UP TRANSA BDOMINAL APPROACH HISTORY: History of preeclampsia with last [...] PHD at 30-Oct-2024 11:19:03 PM [facility] US OB 14+ WEEKS ANATOMY SCAN Observed: 0 08/21/2024 8:50 AM Status: F Source: [facility] EPIC Order Comment: US OB ANATOMY SINGLE W US OB CERVICAL LENGTH Estimated Date of Delivery: 01/06/25 Gestational Age as of 08/05/2024: 18w0d EXAM: US OB 14+ WEEKS ANATOM Y SCAN HISTORY: anatomy. COMPARISON: Ob ultrasound 06/07/2024. [...] II, MD, PHD at 22-Aug-2024 08:46:17 AM [facility] US OB TRANSVAGINAL Observed: 06/07/2024 8:50 AM Status: F Source: [facility] EPIC Order Comment: US OB TRANSVA GINAL No LMP recorded. TITLE OF EXAM: US OB TRANSVA GINAL REASON FOR EXAM: Dating TECHNIQUE: Grayscale, color, [...] x 4.7 cm (8 weeks, 3 days). [place] rump length is 2.5 cm (9 weeks, [...] signed and approved by the interpreting radiologist. ALLERGIES No Allergies Records Found ENCOUNTERS ADMIT/DISCHARGE ACCOUNT NUMBER ADMITTING ENCOUNTER CLASS LOCATION SOURCE 11/27/2024/ 5 [id number] Ambulatory Building:[facility] EPIC 11/13/2024/ 5 [id number] Ambulatory Building:[facility] EPIC 10/30/2024/ 5 [id number] Ambulatory Building:[facility] EPIC 10/30/2024/ 5 [id number] Ambulatory Building:[facility] EPIC 10/01/2024/ 5 [id number] Ambulatory Building:[facility] EPIC 09/02/2024/ 5 [id number] Ambulatory Building:[facility] EPIC 08/21/2024/ 5 [id number] Ambulatory Building:[facility] EPIC 08/05/2024/ 5 [id number] Ambulatory Building:[facility] EPIC 07/08/2024/ 5 [id number] Ambulatory Building:[facility] EPIC 06/07/2024/ 5 [id number] Ambulatory Building:[facility] EPIC 06/07/2024/ 5 [id number] Ambulatory Building:[facility] EPIC PAYERS ENCOUNTER GUARANTOR PAYER SUBSCRIBER SOURCE 11/27/2024 JANINA WILSONSDOB: [place], [place] [address]Hmi: () [facility] MED[place] Number: [id number] Date:2017-04-05 JANINA FRANKSDOB: [id number] [place] [address] [facility] 11/13/2024 JANINA FRANKSDOB: [place], [place] [address]Uhv: () Primary Insurance:[facility] MEDICA[place]Policy Number: [id number] Date:2017-04-05 JANINA FRANKSDOB: [id number] [place] [address] [facility] EPIC 10/30/2024 JANINA FRANKSDOB: [place], [place] [address]Nqa: (HP) Primary Insurance:[employer] MEDICAIDPolicy Number: [id number] Date:2017-04-05 JANINA FRANKSDOB: [id number] [place] [address] [facility] EPIC 10/30/2024 JANINA FRANKSDOB: [place], [place] [address]Val: (HP) Primary Insurance:[employer] MEDICAIDPolicy Number: [id number] Date:2017-04-05 JANINA STEVESDOB: [id number] [place], [place] [id number] [place] [address] [facility] 10/01/2024 JANINA FRANKSDOB: [place], [place] [address]Xwe: (HP) Primary Insurance:[employer] MEDICAIDPolicy Number: [id number] Date:2017-04-05 JANINA STEVESDOB: [id number] [place], [place] [id number] [place] [address] [facility] 09/02/2024 JANINA FRANKSDOB: [place], [place] [address]Uge: (HP) Primary Insurance:[employer] MEDICAIDPolicy Number: [id number] Date:2017-04-05 JANINA FRANKSDOB: [id number] [place] [address] [facility] EPIC 08/21/2024 JANINA FRANKSDOB: [place], [place] [address]Euc: (HP) Primary Insurance:[employer] MEDICAIDPolicy Number: [id number] Date:2017-04-05 JANINA STEVESDOB: [id number] [place] [address] [facility] EPIC 08/05/2024 JANINA IWLSONSDOB: [place], [place] [address]Dat: (HP) Primary Insurance:[employer] MEDICAIDPolicy Number: [id number] Date:2017-04-05 JANINA STEVESDOB: [id number] [place] [address] [facility] EPIC 07/08/2024 JANINA WILSONSDOB: [place], [place] [address]Mgz: (HP) Primary Insurance:[employer] MEDICAIDPolicy Number: [id number] Date:2017-04-05 JANINA WILSONSDOB: [id number] [place] [address] [facility] 06/07/2024 JANINA WILSONSDOB: [place], [place] [address]Xwc: (HP) Primary Insurance:[employer] MEDICAIDPolicy Number: [id number] Date:2017-04-05 JANINA WILSONSDOB: [id number] [place] [address] [facility] 06/07/2024 JANINA WILSONSDOB: [place], [place] [address]Dak: (HP) Primary Insurance:[employer] MEDICAIDPolicy Number: [id number] Date:2017-04-05 JANINA WILSONSDOB: [id number] [place] [address] [facility] EPIC
--- OUTSIDE RECORDS SUMMARY | 2024-11-27 11:30 | XMS_ITS | Encounter Summary ---
Author Organization [facility] Address [address] [place] [place] [address] Care Team Providers Care Gut Carrier Name Role Phone Emmy Higginbothamy DO Unavailable Reason for Visit * Reason Comments Routine Visit Encounter Details Date Type Department Care Team (Late st Contact Info) Description 11/27/2024 11:30 AM EDT Routine [facility] [address] [place] [address] Michael Higginbotham, [address] [facility] [address] [place], [facility]11 Third trimester ([facility] 34 weeks gestation of ([facility]); Hypertension affecting in third trimester ([facility]); Gestational diabetes mellitus (GDM), antepartum, gestational diabetes method of control unspecified ([facility]); H/O pre-eclampsia in prior , currently ([facility]) Social History Tobacco Use Types Packs/Day Years [...] to check FSBS. Blood Glucose Monitoring Suppl ([employer] Glucometer) w/Device kit 1 kit, Does not [...] nursing note reviewed. Exam conducted with a automatic shirring machine operator present. Vitals: There is no height or weight on file to calculate BMI. BP: 140/86 Patient's last menstrual period was 04/01/2024. ASSESSMENT & PLAN ICD-10-CM 1. Third trimester ([facility]) Z34.93 POCT urinalysis dipstick manually resulted 2. 34 weeks gestation of ([facility]) Z3A.34 3. Hypertension affecting in third trimester ([facility]) O16.3 labetalol (Normodyne) 100 MGtablet 4. Gestational diabetes mellitus (GDM), antepartum, gestational diabetes method of control unspecified ([facility]) O24.419 5. H/O pre-eclampsia in prior , currently ([facility]) O09.299 Return OB: Patient presents today for [...] Routine [facility] B[facility] OB [address] [place] [address] Michael Higginbotham DO [address] [place] [address] documented as of this encounter Procedures Procedure Name Priority Date/Time Associated Diagnosis Comments POCT URINALYSIS DIPSTICK Routine 11/27/2024 11:50 AM EDT Third trimester ([facility]) documented in this encounter Results * (ABNORMAL) [...] this encounter Visit Diagnoses Diagnosis Third trimester ([facility]) state, incidental 34 weeks gestation of ([facility]) Hypertension affecting in third trimester ([facility]) Gestational diabetes mellitus (GDM), antepartum, gestational diabetes method of control unspecified ([facility]) H/O pre-eclampsia in prior , currently ([facility]) documented in this encounter Care Teams Gut Carrier Relationship Specialty Start Date End Date Michael Higginbotham DO [address] [place] [address] [place] [address] PCP - [facility] 09/04/23 documented as of this encounter
--- NOTE | 2024-12-09 | US_ITS ---
The [address] [address] Patient Name: JANINA HUMMEL MRN: [id number] date: 1990 Sex: F Assigned Patient Location: [facility] Current Patient Location: Accession/Order Number: [id number] Exam Date: 12/09/2024 10:50 Report Date: 12/09/2024 10:51 At the request of: SAMMIE AHUMADA DO Procedure: US OB BPP w non-stress BIOPHYSICAL PROFILE: CLINICAL INFORMATION: GESTATIONAL DIABETES MELLITUS O24.419 COMPARISON: 12/02/2024 There is a single live intrauterine gestation in cephalic presentation. The reported gestational age is 36 weeks 0 days. The heart rate measures 159 beats per minute. FINDINGS: TONE: 1 or more episodes of activity extension and flexion of extremity or opening and closing of the hand [Y] 2/2 GROSS BODY MOVEMENTS: 3 or more discrete body or limb movements [Y] 2/2 BREATHING MOVEMENTS: 1 or more episodes of breathing lasting at least 30 seconds [Y] 2/2 JUSTA: A single deepest vertical pocket of amniotic fluid greater than 2 cm [Y] 2/2 JUSTA: 15.0 cm. Total score: 8/8 US/US OB BPP w non-stress IMPRESSION: NORMAL BIOPHYSICAL PROFILE Impression dictated by: Madie Long M.D. 12/09/2024 10:51 AM Dictation Location: [place] [address] Electronically authenticated by: [id number] Y Date: 12/09/2024 10:51
--- OUTSIDE RECORDS SUMMARY | 2024-12-09 09:53 | XMS_ITS | Encounter Summary ---
Author Organization [facility] Address [address] [place] [address] Care Team Providers Care Payloader 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 Name Role Phone NeftalyEmmy bolanosy DO Unavailable Encounter Details Date Type Department Care Team (Late st Contact Info) Description 12/03/2024 Telephone [facility] [address] [place] [address] Neftaly Michael, [address] [place] [address] Social History Tobacco Use Types Packs/Day [...] Routine [facility] [address] [place] [address] Michael Higginbotham, [address] [place] [address] documented as of this encounter Visit Diagnoses Not on filedocumented in this encounter Care Teams Payloader 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 Relationship Specialty Start Date End Date Michael iHgginbotham DO [address] [place] [address] PCP - [facility] 09/04/23 documented as of this encounter
--- OUTSIDE RECORDS SUMMARY | 2024-12-09 09:53 | XMS_ITS | Encounter Summary ---
Author Organization [facility] Address [address] [place] [address] Care Team Providers Care Favor Maker Name Role Phone Michael Higginbotham DO Unavailable Encounter Details Date Type Department Care Team (Late st Contact Info) Description 07/01/2024 Abstract [facility] [address] [place] [address] Michael Higginbotham [address] [place] [address] Social History Tobacco Use Types Packs/Day [...] Description 12/11/2024 11:20 AM EDT Routine [facility] [address] [place] [address] Michael Higginbotham, DO [address] [place], [facility] documented as of this encounter Visit Diagnoses Not on filedocumented in this encounter Care Teams Favor Maker Relationship Specialty Start Date End Date Michael Higginbotham DO [facility] [address] [place], [place] [id number] PCP - [facility] TELLER SUPERVISOR 09/04/23 documented as of this encounter
--- OUTSIDE RECORDS SUMMARY | 2024-12-09 09:53 | XMS_ITS | Encounter Summary ---
Author Organization [facility] Address [address] [facility] [place] [address] Care Team Providers Care Hand Ornament Maker Name Role Phone Michael Higginbotham DO Unavailable Encounter Details Date Type Department Care Team (Late st Contact Info) Description 10/01/2024 Abstract [facility] [address] [place] [address] Michael [...] Description 12/11/2024 11:20 AM EDT Routine [facility] [address] [place] [address] Michael Higginbotham, DO [address] [place], [facility] documented as of this encounter Visit Diagnoses Not on filedocumented in this encounter Care Teams Hand Ornament Maker Relationship Specialty Start Date End Date Michael Higginbotham DO [facility] [address] [place], [place] [id number] PCP - [facility] SHIRT BANDER 09/04/23 documented as of this encounter
--- OUTSIDE RECORDS SUMMARY | 2024-12-09 09:53 | XMS_ITS | Encounter Summary ---
Author Organization [facility] Address [address] [facility] [place] [address] Care Team Providers Care Sharepoint Manager Name Role Phone Michael Higginbotham DO Unavailable Encounter Details Date Type Department Care Team (Late st Contact Info) Description 08/19/2024 Orders Only [facility] [address] [place] [address] Isabel Keating [place] [address] [place] [address] Social History Tobacco Use Types Packs/Day Years [...] Description 12/11/2024 11:20 AM EDT Routine [facility] [address] [place] [address] Michael Higginbotham, [address] [place], [place] [id number] documented as of this encounter Procedures Procedure Name Priority Date/Time Associated Diagnosis Comments PAP SMEAR Routine 08/05/2024 12:00 AM EST documented in this encounter Results * Pap Smear (08/05/2024 12:00 AM EST) Swab Cervical swab / Unknown Diya [facility] CYTOLOGY ORDERABLES Final Re sult EXTERNAL LAB documented in this encounter Visit Diagnoses Not on filedocumented in this encounter Care Teams Sharepoint Manager Relationship Specialty Start Date End Date Michael Higginbotham DO [address] [place] [address] PCP - [facility] FIELD CROP TECHNICAL OFFICER 09/04/23 documented as of this encounter
--- OUTSIDE RECORDS SUMMARY | 2024-12-09 09:53 | XMS_ITS | Encounter Summary ---
Author Organization [facility] Address [address] [facility] [place] [address] Care Team Providers Care Television Anchor Name Role Phone Michael Higginbotham DO Unavailable Encounter Details Date Type Department Care Team (Late st Contact Info) Description 02/25/2023 Abstract [facility] [address] [place] [address] Michael Higginbotham DO [address], [facility] Social History Tobacco Use Types Packs/Day [...] Description 12/11/2024 11:20 AM EDT Routine [facility] [address] [place] [address] Michael Higginbotham DO [address], [place] [address] documented as of this encounter Visit Diagnoses Not on filedocumented in this encounter Care Teams Television Anchor Relationship Specialty Start Date End Date Michael Higginbotham DO [place], [place] [id number] PCP - [facility] 09/04/23 documented as of this encounter
--- OUTSIDE RECORDS SUMMARY | 2024-12-09 09:53 | XMS_ITS | Encounter Summary ---
Author Organization [facility] Address [address] [place] [address] Care Team Providers Care Pari Mutuel Ticket Seller Name Role Phone Sammie Higginbotham DO Unavailable Encounter Details Date Type Department Care Team (Late st Contact Info) Description 12/02/2024 Clinisync Result Encounter [facility] External Department Unsolicited [facility] [address] [place], [place] [phone] Social History Tobacco Use Types Packs/Day Years [...] Routine [facility] OB [address] [facility] [place] [phone] Sammie Higginbotham, [facility] [place] [address] documented as of this encounter Procedures Procedure Name Priority Date/Time Associated Diagnosis Comments US OB BPP W NON-STRESS 12/02/2024 11:52 AM EDT documented in this encounter Results * US OB BPP W NON-STRESS (12/02/2024 11:52 AM EDT) Anatomical Region Laterality Modality Other 12/02/2024 11:5 2 AM EDT Narrative 12/02/2024 11:54 [place] [address] Ultrasound Report Signed Patient: JANINA HUMMEL MR#: [id number] : 1990 Acct:[id number] Age/Sex: 34 / F ADM Date: 12/02/24 Loc: US Attending Dr: Sammie Higginbotham D.O. Ordering Physician: Sammie Higginbotham D.O. Date of Service: 12/02/24 Procedure(s): US OB BPP w non-stress Accession Number(s): [id number] cc: Sammie Higginbotham D.O.; Physician,Non-Staff [place] [address] [place] [id number] Patient Name: JANINA HUMMEL MRN: [facility]:[id number] date: 1990 Sex: F Assigned Patient Location: [facility] Current Patient Location: Accession/Order Number: [id number] Exam Date: 12/02/2024 11:51 Report Date: 12/02/2024 [...] Long M.D. 12/02/2024 11:52 AM Dictation Location: [place] [address] Electronically authenticated by: [id number] Y Date: 12/02/2024 11:52 Dictated By: Madie Long M.D. Signed By: 12/02/24 1154 DD/ 1152 TD/TT: Residential Sales Manager: Procedure Note Radiology, Radiologist, MD - 12/02/2024 [place] [address] Ultrasound Report Signed Patient: JANINA HUMMEL LMR#: [id number] : 1990Acct:[id number] Age/Sex: 34 / FADM Date: 12/02/24 Loc: US Attending Dr: Sammie Higginbotham D.O. Ordering Physician: Sammie Higginbotham D.O. Date of Service: 12/02/24 Procedure(s): US OB BPP w non-stress Accession Number(s): [id number] cc: Sammie Higginbotham D.O.; Physician,Non-Staff [place] [facility] [place] [id number] Patient Name: JANINA HUMMEL MRN: [facility]:[id number] date: 1990 Sex: F Assigned Patient Location: [facility] Current Patient Location: Accession/Order Number: [id number] Exam Date: 12/02/2024 11:51 Report Date: 12/02/2024 11:52 At the request of: ASMMIE HIGGINBOTHAM DO Procedure: US OB BPP w [...] Long M.D. 12/02/2024 11:52 AM Dictation Location: [place] [address] Electronically authenticated by: [id number] Y Date: 1:52 Dictated By: Madie Long M.D. Signed By:12/02/24 1154 DD/ 1152 TD/TT: Residential Sales Manager: us Sammie Higginbotham DO [facility] Final Result documented in this encounter Visit Diagnoses Not on filedocumented in this encounter Care Teams Pari Mutuel Ticket Seller Relationship Specialty Start Date End Date Sammie Higginbotham DO [address] [place] [address] [place] [address] PCP - [facility] 09/04/23 documented as of this encounter
--- OUTSIDE RECORDS SUMMARY | 2024-12-09 09:53 | XMS_ITS | Encounter Summary ---
Author Organization [facility] Address [address] [facility] [place] [address] Care Team Providers Care Atm Manager Name Role Phone Michael Higginbotham DO Unavailable Encounter Details Date Type Department Care Team (Late st Contact Info) Description 11/15/2024 Telephone [facility] OB [address] [place] [address] [place] [address] Cordelia Green LPN [...] scheduled for her NST this morning at [facility] and patient was advised to notify them of any concerns/issues she had. PVU and will reach out to office with frther concerns. Cordelia Winn LPN documented in this encounter Plan of Treatment Upcoming Encounters Date Type Department Care Team (Late st Contact Info) Description 12/11/2024 11:20 AM EDT Routine [facility] BCP OB [address] [place] [address] Michael Higginbotham DO [address] [place] [address] documented as of this encounter Visit Diagnoses Not on filedocumented in this encounter Care Teams Atm Manager Relationship Specialty Start Date End Date Michael Higginbotham DO [address] [place] [address] PCP - [facility] 09/04/23 documented as of this encounter
--- OUTSIDE RECORDS SUMMARY | 2024-12-09 09:53 | XMS_ITS | Encounter Summary ---
Author Organization [facility] [facility] tem Address [id number] [address] [place] [address] Care Team Providers Care Returns Supervisor Name Role Phone No Pcp, No Pcp Primary Care Provider Unavailabl e Reason for Referral * Diagnostic Imaging (Routine) - Closed Specialty Diagnoses / Procedures Referred By Contac t Referred To Contact Maternal and Medicine Diagnoses Abnormal chromosomal and genetic finding on screening of mother History of pre-eclampsia Hx of delivery, currently Procedures US [facility] with or without consult Navarro Kee MD Phone: tel: fax: Maternal- Medicine at [place] [id number] [place] [address] Phone: tel: fax: Referral ID Status Reason Start Date Expiration Date Visits Re quested Visits Authorized [id number] Closed 08/24/2020 08/24/2021 1 1 Encounter Details Date Type Department Care Team (Late st Contact Info) Description 08/24/2020 Orders Only Maternal- Medicine at [place] [id number] [place] [phone] Navarro Kee MD [address] [facility], [address] [place] [address] Abnormal chromosomal and genetic finding on screening [...] documented as of this encounter Results * [facility] OB FOLLOW-UP, 1 FETUS (09/21/2020 10:31 AM [...] Final 09/21/2020 11:31) PATIENT INFO: ID #: [id number] : [birth year] (30 yrs)(F) Name: JANINA MC Visit Date: 09/21/2020 10:06 HUMMEL PERFORMED BY: Performed By: Margret Hernandez RDMS Attending: Wes Szymanski MD Referred By: Michael Higginbotham DO Ref. Address: [address] [place] [address] [place] [address] Location: Maternal Medicine [place] SERVICE(S) PROVIDED: OB Follow-up, 1 fetus [address]14 Echocardiogram-complete 33799 INDICATIONS: Screening for follow-up survey Z36.2 History [...] Best: 25w 1d Det. By: LMP (03/29/20) KALUS: 01/03/21 TARGETED ANATOMY: Central Nervous System Calvarium/Cranial [...] Arch: Previously seen SVC: Previously seen Cardiac [place]: Appears normal Diaphragm: Appears normal 3 Vessel [...] Signed Final Report 09/21/2020 11:31 Procedure Note Wse Szymanski MD - 09/21/2020 OBSTETRICS REPORT (Signed Final 09/21/2020 11:31) PATIENT INFO: ID #: [id number] : [birth year] (30 yrs)(F) Name: JANINA MC Visit Date: 09/21/2020 10:06 HUMMEL PERFORMED BY: Performed By: Margret Hernandez RDMS Attending: Wes Szymanski MD Referred By: Michael Duncan. Address: [address] [place] [address] [place] [address] Location: Maternal Medicine [place] SERVICE(S) PROVIDED: OB Follow-up, 1 fetus 20517 Echocardiogram-complete 91187 INDICATIONS: Screening for follow-up survey Z36.2 History [...] Arch: Previously seen SVC: Previously seen Cardiac [place]: Appears normal Diaphragm: Appears normal 3 Vessel [...] trimester documented in this encounter Care Teams Returns Supervisor Relationship Specialty Start Date End Date No Pcp, No Pcp [place] [address] PCP - General Family Medicine 02/26/20 documented as of this encounter
--- OUTSIDE RECORDS SUMMARY | 2024-12-09 09:53 | XMS_ITS | Clinical Summary ---
Author Organization [employer] tem Address [id number] [address] [place] [address] Care Team Providers Care Pharmaceutical Officer Name Role Phone No Pcp, No Pcp [...] on file Insurance [employer] Care Teams Pharmaceutical Officer Relationship Specialty Start Date End Date No Pcp, [place] [address] PCP - General Family Medicine 02/26/20
--- OUTSIDE RECORDS SUMMARY | 2024-12-09 09:53 | XMS_ITS | Encounter Summary ---
Author Organization [facility] Healthcare Address [address] [place] [address] Care Team Providers Care Traffic Analysis Technician Name Role Phone Michael Higginbotham DO Unavailable Encounter Details Date Type Department Care Team (Late st Contact Info) Description 11/13/2024 Abstract [facility] OB [address] [place] [address] Michael Higginbotham [address] [place], [facility]11 Social History Tobacco Use Types Packs/Day [...] Description 12/11/2024 11:20 AM EDT Routine [facility] OB [address] [place] [address] Michael Higginbotham, DO [address] [place], [facility]11 documented as of this encounter Visit Diagnoses Not on filedocumented in this encounter Care Teams Traffic Analysis Technician Relationship Specialty Start Date End Date Michael Higginbotham DO [facility] [address] [place], [place] [phone] PCP - [employer] [facility] [address] 09/04/23 documented as of this encounter
--- OUTSIDE RECORDS SUMMARY | 2024-12-09 09:53 | XMS_ITS | Encounter Summary ---
Author Organization [facility] Address [address] [place] [address] Care Team Providers Care Geodetic Survey Director Name Role Phone Michael Higginbotham DO Unavailable Encounter Details Date Type Department Care Team (Late st Contact Info) Description 10/07/2024 Abstract [facility] [address] [place] [address] Michael Higginbothma [address] [place] [address] Social History Tobacco Use Types Packs/Day [...] 12/11/2024 11:20 AM EDT Routine [facility] OB [address] [place] [address] Michael Higginbotham, DO [address] [place], [facility] documented as of this encounter Visit Diagnoses Not on filedocumented in this encounter Care Teams Geodetic Survey Director Relationship Specialty Start Date End Date Michael Higginbotham DO [facility] [address] [place], [place] [phone] PCP - [employer] [facility] 09/04/23 documented as of this encounter
--- OUTSIDE RECORDS SUMMARY | 2024-12-09 09:53 | XMS_ITS | Clinical Summary ---
Author Organization [facility] Healthcare Address [address] [place] [address] Care Team Providers Care Juice Mixer Name Role Phone Sammie Higginbotham DO Unavailable [...] tabletIndicati ons:Hypertensi on affecting in third trimester ([facility]) Take 2 tablets (200 mg) by mouth [...] tabletIndicati ons:Hypertensi on affecting in third trimester ([facility]) Take 1 tablet (100 mg) by mouth in the morning and 1 tablet (100 mg) before bedtime. 60 tablet 3 11/14/19 25 025 Discontinued(Re order) Encounters Date Type Department Care Team Description 12/03/2024 Telephone N[facility] [address] [place] [address] Sammie Higginbotham, DO 12/02/2024 Clinisync Result Encounter NOMS External Department Unsolicited Sammie Higginbotham, DO 11/27/2024 11:30 AM EDT Routine NOMS [address] [place] [address] Sammie Higginbotham, DO Third trimester ([facility]); 34 weeks gestation of ([facility]); Hypertension affecting in third trimester ([facility]); Gestational diabetes mellitus (GDM), antepartum, gestational diabetes method of control unspecified ([facility]); H/O pre-eclampsia in prior , currently ([facility]) 11/27/2024 Bamboo flowsheet [facility]OM[facility] [address] [place] [address] Sammie Higginbotham, DO 11/25/2024 Clinisync Result Encounter [facility]S External Department Unsolicited Sammie Higginbotham, DO 11/18/2024 Clinisync Result Encounter NOMS External Department Unsolicited Sammie Higginbotham, DO 11/18/2024 Results Follow-Up [facility] [place] [address] [place] [address] Leora Loredo LPN 11/15/2024 Telephone [facility] [place] [address] [place] [address] Cordelia Green LPN 11/13/2024 10:30 AM EDT Routine [facility] [place] [address] [place] [address] Diya Villanueva, PA Hypertension affecting in third trimester ([facility]) (Primary Dx); 32 weeks gestation of ([facility]); Third trimester ([facility]) 11/13/2024 Clinisync Result Encounter NOMS External Department Unsolicited Sammie Higginbotham, DO 11/13/2024 Abstract [facility] [address] [place] [address] Sammie Higginbotham, DO 11/13/2024 Bamboo flowsheet [facility] [address] [place] [address] Diya Villanueva PA 11/12/2024 Clinisync Result Encounter NOMS External Department Unsolicited Sammie Higginbotham, DO 10/30/2024 10:50 AM EDT Routine NOM[facility] [address] [place] [address] Sammie Higginbotham, DO 30 weeks gestation of ([facility]); Third trimester ([facility]); H/O pre-eclampsia in prior , currently ([facility]); Gestational diabetes mellitus (GDM), antepartum, gestational diabetes method of control unspecified ([facility]) 10/30/2024 10:00 AM EDT Ancillary Procedure NOM[facility] [address] [place] [address] H/O pre-eclampsia in prior , currently ([facility]) 10/14/[address] [address] [place] [address] Paola Centeno MA 10/07/2024 Abstract [facility] [address] [place] [address] Sammie Higginbotham, 10/01/2024 9:30 AM EDT Routine NOM[facility] [address] [place] [address] Lin Sellers NP Second trimester ([facility]); size inconsistent with dates ([facility]); H/O pre-eclampsia in prior , currently ([facility]); Gestational diabetes mellitus (GDM), antepartum, gestational diabetes method of control unspecified ([facility]); Elevated glucose tolerance test 10/01/2024 Abstract [facility] OB [address] [place] [address] [place] [address] Sammie Higginbotham DO 10/01/2024 Bamboo flowsheet [facility] OB [address] [place] [address] [place] [address] Lin Sellers NP from Last 3 Months Social History Tobacco [...] Description 12/11/2024 11:20 AM EDT Routine NOM[facility] [address] [place] [address] Sammie Higginbotham, [address] [place], [place] [phone] Health Maintenance Due Date Last Done Comments Influenza Vaccine (#1) 2025 05/09/2019 Cervical Cancer Screening 08/05/2029 HPV/Cotest 08/05/2029 03/15/2023 Pap Smear 08/05/2029 08/05/2024 Procedures Procedure Name Priority Date/Time Associated Diagnosis Comments US OB BPP W NON-STRESS 12/02/2024 11:52 AM EDT POCT URINALYSIS DIPSTICK Routine 11/27/2024 11:50 AM EDT Third trimester ([facility]) US OB BPP W NON-STRESS 11/25/2024 10:37 AM EDT US OB BPP W NON-STRESS 11/18/2024 9:26 AM EDT TBH TOTAL PROTEIN 24 HOUR URINE Routine 11/13/2024 7:15 PM EDT POCT URINALYSIS DIPSTICK Routine 11/13/2024 10:33 AM EDT 32 weeks gestation of ([facility]) Third trimester ([facility]) [facility] URINE T PROTEIN CREAT [...] 10:35 AM EDT 30 weeks gestation of ([facility]) Third trimester ([facility]) US OB FOLLOW UP TRANSABDOMINAL APPROACH Routine 10/30/2024 10:16 AM EDT H/O pre-eclampsia in prior , currently ([facility]) PAP SMEAR Routine 08/05/2024 12:00 AM EST [...] AM EDT Narrative 12/02/2024 11:54 [place] [address] Ultrasound Report Signed Patient: JANINA HUMMEL MR#: [id number] : 1990 Acct:[id number] Age/Sex: 34 / F ADM Date: 12/02/24 Loc: US Attending Dr: Sammie Higginbotham D.O. Ordering Physician: Sammie Higginbotham D.O. Date of Service: 12/02/24 Procedure(s): US OB BPP w non-stress Accession Number(s): [id number] cc: Sammie Higginbotham D.O.; Physician,Non-Staff M.Kaylee [address] [address] Patient Name: JANINA HUMMEL MRN: [facility]:[id number] date: 1990 Sex: F Assigned Patient Location: [facility] Current Patient Location: Accession/Order Number: [id number] Exam Date: 12/02/2024 11:51 Report Date: 12/02/2024 [...] Long M.D. 12/02/2024 11:52 AM Dictation Location: [place] [address] Electronically authenticated by: [id number] Y Date: 12/02/2024 11:52 Dictated By: Madie Long M.D. Signed By: 12/02/24 1154 DD/ 1152 TD/TT: Manager Social Work: Procedure Note Radiology, Radiologist, - 12/02/2024 [place] [address] Ultrasound Report Signed Patient: JANINA HUMMEL LMR#: [id number] : 1990Acct:[id number] Age/Sex: 34 / FADM Date: 12/02/24 Loc: US Attending Dr: Sammie Higginbotham D.O. Ordering Physician: Sammie Higginbotham D.O. Date of Service: 12/02/24 Procedure(s): US OB BPP w non-stress Accession Number(s): [id number] cc: Sammie Higginbotham D.O.; Physician,Non-Staff Mylene The [place] [phone] Patient Name: JANINA HUMMEL MRN: [facility]:[id number] date: 1990 Sex: F Assigned Patient Location: [facility] Current Patient Location: Accession/Order Number: [id number] Exam Date: 12/02/2024 11:51 Report Date: 12/02/2024 [...] Long M.D. 12/02/2024 11:52 AM Dictation Location: [place] [address] Electronically authenticated by: [id number] Y Date: 1:52 Dictated By: Madie Long M.D. Signed By:12/02/24 1154 DD/ 1152 TD/TT: Manager Social Work: us Sammie Higginbotham DO [facility] Final [...] CLINISYNC - 11/13/2024 10:18 PM EDT Sammie Higginbotham DO [facility] Final Result [facility] TB * (ABNORMAL) [facility] URINE T PROTEIN CREAT RATIO (11/12/2024 3:00 PM EDT) TOTAL PROTEIN URINE RANDOM <6.0 <=11.9 mg/dL TBH CREATININE URINE RANDOM 19.35(L) 20.00 - 300.00 mg/dL TBH 11/12/2024 3:00 PM EDT 11/12/2024 3:00 PM EDT Narrative [facility]IN[facility] - 11/12/2024 3:08 PM EDT Sammie Neftaly DO CLINIS[facility]NC Final Result [facility] * (ABNORMAL) TBH CREATININE (11/12/2024 1:58 PM EDT) CREATININE 0.49(L) 0.55 - 1.02 mg/dL TBH TBH EGFR-AF PERUVIAN >60 >=60 mL/min/1.7 3m 2 TBH TBH EGFR-NON AF PERUVIAN >60 >=60 mL/min/1.7 3m 2 TBH 11/12/2024 1:58 PM EDT 11/12/2024 2:02 PM EDT Narrative [facility]IN[facility] - 11/12/2024 2:20 PM EDT Sammie Neftaly DO CLINISY[facility] Final Result Performing Organization Address City/[facility]/ZIP Co de Phone Number [facility] * SRMCOH PROTHROMBIN TIME INR W/O COUM (11/12/2024 1:58 PM EDT) PROTHROMBIN TIME 9.8 9.0 - 11.6 sec TBH TBH INR <0.93 TBH Comment: DESIRED INR: 2.0-3.0 CONDITIONS NOT LISTED BELOW 2.5-3.5 FOR PROSTHETIC HEART VALVE REPLACEMENT 2.5-3.5 RECURRENT THROMBOSIS 11/12/2024 1:58 PM EDT 11/12/2024 2:02 PM EDT Narrative [facility]IN[facility]NC - 11/12/2024 2:48 PM EDT Sammie Neftaly DO CLINIS[facility]NC Final Result [facility] * (ABNORMAL) MHPT FIBRINOGEN (11/12/2024 1:58 PM [...] DO CLINISYNC Final Result Performing Organization Address [facility]/ZIP Co de Phone Number CLIN[facility]NC TB * [facility] APTT (11/12/2024 1:58 PM EDT) PARTIAL THROMBOPLASTIN TIME 23.3 22.3 - 36.2 sec TB 11/12/2024 1:58 PM EDT 11/12/2024 2:02 PM EDT Narrative [facility]IN[facility]NC - 11/12/2024 2:48 PM EDT Sammie Neftaly DO CLINISYNC Final Result [facility] TB * [facility] ALT (11/12/2024 1:58 PM [...] us Sammie Neftaly DO [facility] Final Result [facility] * (ABNORMAL) ALL CBC WITH AUTO DIFF (11/12/2024 1:58 PM EDT) TBH WBC 13.8(H) 4.0 - 11.0 10 3/uL TBH TBH RBC 3.74(L) 4.20 - 5.40 10 6/uL TBH TBH HGB 10.1(L) 12.0 - 16.0 g/dL TBH TBH HCT 30.7(L) 36.0 - 48.0 % TBH [...] us Sammie Neftaly DO [facility] Final Result [facility] * ALL BUN (11/12/2024 1:58 PM EDT) BLOOD UREA NITROGEN 13.0 7.0 - 18.0 mg/dL TBH 11/12/2024 1:58 PM EDT 11/12/2024 2:02 PM EDT Narrative CLINISYNC - 11/12/2024 2:20 PM EDT us Sammie Neftaly DO CLINISYNC Final Result Performing Organization Address City/[facility] Co de Phone Number [facility] * US OB follow up transabdominal approach [...] II, MD, PHD at 30-Oct-2024 11:19:03 PM [facility] Procedure Note Amy Steele MD - [...] signed by AMY STEELE II, MD, PHD [id number] 11:19:03 PM [facility] us Lin Sellers PAINTING TRADES WORKER IMG OB US PROCEDURES Final Re sult * Pap Smear (08/05/2024 12:00 AM EST) Swab Cervical swab / Unknown us Diya GEE LAB CYTOLOGY ORDERABLES Final Re sult EXTERNAL LAB * THINPREP PAP AND HPV MRNA E6/E7 W/RFL HPV 16,18/45 (03/15/2023 12:16 PM EDT) us Sammie Higginbotham DO LAB BLOOD ORDERABLES Final Resul t Performing Organization Address City/[facility]/ZIP Co de Phone Number EXTERNAL LAB from Last 3 Months or Most Recently Relevant to Health Maintenance Insurance [employer] Care Teams Juice Mixer Relationship Specialty Start Date End Date Sammie Higginbotham DO [address] [place] [address] [place] [address] PCP - [facility] 09/04/23
--- OUTSIDE RECORDS SUMMARY | 2024-12-09 09:54 | XMS_ITS | Encounter Summary ---
Author Organization [facility] Healthcare Address [address] [facility] [place] [address] Care Team Providers Care Pasting Machine Offbearer Name Role Phone Michael Higginbotham DO Unavailable Encounter Details Date Type Department Care Team (Late st Contact Info) Description 09/05/2024 Abstract [facility] OB [address] [place] [address] Michael Higginbotham [address] [place] [address] Social History Tobacco Use Types Packs/Day [...] Description 12/11/2024 11:20 AM EDT Routine [facility] OB [address] [place] [address] Michael Higginbotham, DO [address] [place], [facility] documented as of this encounter Visit Diagnoses Not on filedocumented in this encounter Care Teams Pasting Machine Offbearer Relationship Specialty Start Date End Date Michael Higginbotham DO [facility] [address] [place], [place] [phone] PCP - [employer] [facility] CLASSIFICATION CLERK 09/04/23 documented as of this encounter
--- OUTSIDE RECORDS SUMMARY | 2024-12-09 09:54 | XMS_ITS | Encounter Summary ---
Author Organization [facility] Address [address] [facility] [place] [address] Care Team Providers Care Civil Attorney Name Role Phone Neftaly Michael DO Unavailable Encounter Details Date Type Department Care Team (Late st Contact Info) Description 11/18/2024 Results Follow-Up [facility] OB [address] [facility] [place] [address] Leora Loredo LPN [address] [place] [address] Social History Tobacco Use Types [...] AM EDT Routine [facility] OB [address] [facility] [place] [address] Michael Higginbotham, [address] [facility] [address] [place], [place] [address] documented as of this encounter Visit Diagnoses Not on filedocumented in this encounter Care Teams Civil Attorney Relationship Specialty Start Date End Date Michael Higginbotham DO [address] [place] [address] [place] [address] PCP - [facility] 09/04/23 documented as of this encounter
--- OUTSIDE RECORDS SUMMARY | 2024-12-09 09:54 | XMS_ITS | Encounter Summary ---
Author Organization [facility] Address [address] [facility] [place] [address] Care Team Providers Care Communications Maintainer Name Role Phone Michael Higginbotham DO Unavailable Encounter Details Date Type Department Care Team (Late st Contact Info) Description 11/27/2024 Bamboo flowsheet [facility] OB [address] [place] [address] Michael Higginbotham [facility] [address] [place], [facility] Social History Tobacco Use Types Packs/Day Years [...] Routine [facility] [address] [place] [address] Michael Higginbotham, DO [address] [place], [place] [id number] documented as of this encounter Visit Diagnoses Not on filedocumented in this encounter Care Teams Communications Maintainer Relationship Specialty Start Date End Date Michael Higginbotham DO [facility] [address] [place], [place] [id number] PCP - [facility] 09/04/23 documented as of this encounter
--- OUTSIDE RECORDS SUMMARY | 2024-12-09 09:54 | XMS_ITS | Encounter Summary ---
Author Organization [facility] Address [address] [place] [address] Care Team Providers Care Life Guard Name Role Phone Sammie Higginbotham DO Unavailable Encounter Details Date Type Department Care Team (Late st Contact Info) Description 11/25/2024 Clinisync Result Encounter [facility] External Department [facility]solicited [facility] [address], [place] [id number] Social History Tobacco Use Types Packs/Day Years [...] AM EDT Routine [facility] [address] [place] [phone] Sammie Higginbotham, [facility] [place] [address] documented as of this encounter Procedures Procedure Name Priority Date/Time Associated Diagnosis Comments US OB BPP W NON-STRESS 11/25/2024 10:37 AM EDT documented in this encounter Results * US OB BPP W NON-STRESS (11/25/2024 10:37 AM EDT) Anatomical Region Laterality Modality Other 11/25/2024 10:3 7 AM EDT Narrative 11/25/2024 10:40 [place] [address] Ultrasound Report Signed Patient: JANINA HUMMEL MR#: [id number] : 1990 Acct:[id number] Age/Sex: 34 / F ADM Date: 11/25/24 Loc: [facility] 251-[address]: Sammie Higginbotham D.O. Ordering Physician: Sammie Higginbotham D.O. Date of Service: 11/25/24 Procedure(s): US OB BPP w non-stress Accession Number(s): [id number] cc: Sammie Higginbotham D.O.; Physician,Non-Staff [place] [address] Patient Name: JANINA UHMMEL MRN: [facility]:[id number] date: 1990 Sex: F Assigned Patient Location: Current Patient Location: [place] Accession/Order Number: [id number] Exam Date: 11/25/2024 10:35 Report Date: 11/25/2024 [...] Long M.D. 11/25/2024 10:37 AM Dictation Location: [place] [address] Electronically authenticated by: [id number] Y Date: 11/25/2024 10:37 Dictated By: Madie Long M.D. Signed By: 11/25/24 1040 DD/ 1037 TD/TT: Audit Associate: Procedure Note Radiology, Radiologist, MD - 11/25/2024 [place] [address] Ultrasound Report Signed Patient: JANINA HUMMEL LMR#: [id number] : 1990Acct:[id number] Age/Sex: 34 / FADM Date: 11/25/24 Loc: [facility] 251-[address]: Sammie Higginbotham D.O. Ordering Physician: Sammie Higginbotham D.O. Date of Service: 11/25/24 Procedure(s): US OB BPP w non-stress Accession Number(s): [id number] cc: Sammie Higginbotham D.O.; Physician,Non-Staff [place] [facility] [place] [id number] Patient Name: JANINA HUMMEL MRN: [id number] date: 1990 Sex: F Assigned Patient Location: Current Patient Location: US Accession/Order Number: [id number] Exam Date: 11/25/2024 10:35 Report Date: 11/25/2024 [...] Long M.D. 11/25/2024 10:37 AM Dictation Location: [place] [address] Electronically authenticated by: [id number] Y Date: 0:37 Dictated By: Madie Long M.D. Signed By:11/25/24 1040 DD/ 1037 TD/TT: Audit Associate: us Sammie Higginbotham DO [facility] Final Result documented in this encounter Visit Diagnoses Not on filedocumented in this encounter Care Teams Life Guard Relationship Specialty Start Date End Date Sammie Higginbotham DO [address] [place] [address] [place] [address] PCP - [facility] 09/04/23 documented as of this encounter
[2024-12-09 10:20] VITALS: BP 135/86; PULSE 96
== END 2024-12-09 10:49 | disposition home or self-care (01) ==
LOC: US 09:50 → FBC 10:03
PROVIDERS: Visit Provider Obstetrics & Gynecology
DX: O24.419 Gestational diabetes mellitus in pregnancy, unspecified control (principal); Z3A.36 36 weeks gestation of pregnancy
CPT/HCPCS: 76818

== ENCOUNTER 2024-12-11 20:30 | Outpatient (REF) | payer OTHER, SELFPAY | END 2024-12-11 20:31 | disposition home or self-care (01) | LOC: LAB 20:30 | PROVIDERS: Visit Provider Obstetrics & Gynecology | DX: Z34.93 Encounter for supervision of normal pregnancy, unspecified, third trimester (principal) | CPT/HCPCS: 87081 ==

== ENCOUNTER 2024-12-12 09:09 | Outpatient (OUT) | payer OTHER, SELFPAY ==
[2024-12-12 08:19] VITALS: BP 119/89; PULSE 85
[2024-12-12 08:21] VITALS: BP 119/89; PULSE 95
--- OUTSIDE RECORDS SUMMARY | 2024-12-12 09:30 | XMS_ITS | CCD ---
Author Organization [facility] CliniSyct Care Team Providers Care Ehs Manager Name Role Phone NEFTALY, DR COCHRAN [...] Unavaila ble KARASIPavan, DR LOTT Consulting Unavailable MCKINNON, DR POLLO Gonzalez Consulting Unavailable NEFTALY, DR [...] Primary Care Unavaila RICCARDO Alejo Consulting Unavailable RICCAROD GARNER Admitting Unavailable RICCARDO GARNER Attending Unavailable NEFTALY, DR COCHRAN Admitting Unavailable NEFTALY, DR COCHRAN Attending Unavailable REQUEST, NONE LISTED Primary Care Unavaila ble NeftalySammie bolanos DO Unavailable SAMMIE IHGGINBOTHAM Attending Unavailable DIYA ROBLES Attending Unavailable NEFTALYSAMMIE BOLANOS Attending Unavailable LIN SELLERS Attending Unavailable LIN SELLERS Referring Unavailable SAMMIE HIGGINBOTHAM Attending Unavailable DIYA ROBLES Attending Unavailable SAMMIE HIGGINBOTHAM Attending Unavailable Medications Current Medications Medication Drug Class(es) Dates Sig (Normalized) Sig (Original) Blood Glucose Monitoring Suppl (D-Care Glucometer) w/Device kit (15 sources) Start: 10-01-2024 End: 10-01-2025 Blood Glucose Monitoring Suppl (D-Care Glucometer) w/Device kit Indications: Elevated glucose tolerance test 1 kit Daily Use four times daily to check FSBS. In the morning prior to breakfast & 1 hour after each meal for a total of 4times daily. 1 kit 10/01/2024 10/01/2025 Active isopropyl alcohol 0.7 ml/ml medicated pad (15 sources) Start: 10-01-2024 Alcohol Swabs (Alcohol Prep Pad) 70 % pads Indications: Elevated glucose tolerance test Apply 1 Pad topically Daily Use four times daily to check FSBS. 150 each 3 10/01/2024 Active labetalol hydrochloride 100 mg oral tablet (13 sources) beta-Adrenergic Katarina Start: 11-27-2024 End: 11-27-2025 [...] Facility US OB BPP W NON-STRESS on 12-09-2024 [place] [address] Ultrasound Report Signed Patient: JANINA MARTEL MR#: [id number] : 1990 Acct:[id number] Age/Sex: 34 / F ADM Date: 12/09/24 Loc: US Attending Dr: Sammie Higginbotham D.O. Ordering Physician: Sammie Higginbotham D.O. Date of Service: 12/09/24 Procedure(s): US OB BPP w non-stress Accession Number(s): [id number] cc: Sammie Higginbotham D.O.; Physician,Non-Staff M.DRiana The [address] [address] Patient Name: JANINA MARTEL MRN: [facility]:[id number] date: 1990 Sex: F Assigned Patient Location: [facility] Current Patient Location: Accession/Order Number: [id number] Exam Date: 12/09/2024 10:50 Report Date: 12/09/2024 10:51 At the request of: SAMMIE HIGGINBOTHAM DO Procedure: US OB BPP w non-stress BIOPHYSICAL PROFILE: CLINICAL INFORMATION: GESTATIONAL DIABETES MELLITUS O24.419 COMPARISON: 12/02/2024 There is a single live intrauterine gestation in cephalic presentation. The reported gestational age is 36 weeks 0 days. The heart rate measures 159 beats per minute. FINDINGS: TONE: 1 or [...] greater than 2 cm [Y] 2/2 JUSTA: 15.0 cm. Total score: 8/8 US/US OB BPP w non-stress IMPRESSION: NORMAL BIOPHYSICAL PROFILE Impression dictated by: Madie Long M.D. 12/09/2024 10:51 AM Dictation Location: [place] [address] Electronically authenticated by: [id number] Y Date: 12/09/2024 10:51 Dictated By: Madie Long M.D. Signed By: 12/09/24 1053 DD/ 1051 TD/TT: Activity Aide: [facility] Radiology, Radiologist, - 12/09/2024 [place] [address] Ultrasound Report Signed Patient: JANINA MARTEL MR#: [id number] : 1990 Acct:[id number] Age/Sex: 34 / F ADM Date: 12/09/24 Loc: US Attending Dr: Sammie Higginbotham D.O. Ordering Physician: Sammie Higginbotham D.O. Date of Service: 12/09/24 Procedure(s): US OB BPP w non-stress Accession Number(s): [id number] cc: Sammie Higginbotham D.O.; Physician,Non-Staff Mlyene The [place] [address] Patient Name: JANINA MARTEL MRN: [facility]:[id number] date: 1990 Sex: F Assigned Patient Location: [facility] Current Patient Location: Accession/Order Number: [id number] Exam Date: 12/09/2024 10:50 Report Date: 12/09/2024 10:51 At the request of: SAMMIE HIGGINBOTHAM DO Procedure: US OB BPP w non-stress BIOPHYSICAL PROFILE: CLINICAL INFORMATION: GESTATIONAL DIABETES MELLITUS O24.419 COMPARISON: 12/02/2024 There is a single live intrauterine gestation in cephalic presentation. The reported gestational age is 36 weeks 0 days. The heart rate measures 159 beats per minute. FINDINGS: TONE: 1 or [...] greater than 2 cm [Y] 2/2 JUSTA: 15.0 cm. Total score: 8/8 US/US OB BPP w non-stress IMPRESSION: NORMAL BIOPHYSICAL PROFILE Impression dictated by: Madie Long M.D. 12/09/2024 10:51 AM Dictation Location: [place] [address] Electronically authenticated by: [id number] Y Date: 12/09/2024 10:51 Dictated By: Madie Long M.D. Signed By: 12/09/24 1053 DD/ 1051 TD/TT: Activity Aide: [facility] [employer] Radiology Study observation (narrative) [facility] US OB BPP W NON-STRESS Ordered By: Radiologist Radiology on 12-09-2024 [facility] [employer] Work Phone: US OB BPP W NON-STRESS on 12-02-2024 [place] [address] Ultrasound Report Signed Patient: JANINA MARTEL MR#: [id number] : 1990 Acct:[id number] Age/Sex: 34 / F ADM Date: 12/02/24 Loc: US Attending Dr: Sammie Higginbotham D.O. Ordering Physician: Sammie Higginbotham D.O. Date of Service: 12/02/24 Procedure(s): US OB BPP w non-stress Accession Number(s): [id number] cc: Sammie Higginbotham D.O.; Physician,Non-Staff [place] [address] Patient Name: JANINA MARTEL MRN: [facility]:[id number] date: 1990 Sex: F Assigned Patient Location: [facility] Current Patient Location: Accession/Order Number: [id number] Exam Date: 12/02/2024 11:51 Report Date: 12/02/2024 [...] Long M.D. 12/02/2024 11:52 AM Dictation Location: [place] [address] Electronically authenticated by: [id number] Y Date: 12/02/2024 11:52 Dictated By: Madie Long M.D. Signed By: 12/02/24 1154 DD/ 1152 TD/TT: Activity Aide: [facility] Radiology, Radiologist, - 12/02/[address] [address] Ultrasound Report Signed Patient: JANINA MARTEL MR#: [id number] : 1990 Acct:[id number] Age/Sex: 34 / F ADM Date: 12/02/24 Loc: US Attending Dr: Sammie Higginbotham D.O. Ordering Physician: Sammie Higginbotham D.O. Date of Service: 12/02/24 Procedure(s): US OB BPP w non-stress Accession Number(s): [id number] cc: Sammie Higginbotham D.O.; Physician,Non-Staff Mylene The [address] [address] Patient Name: JANINA MARTEL MRN: [facility]:[id number] date: 1990 Sex: F Assigned Patient Location: [facility] Current Patient Location: Accession/Order Number: [id number] Exam Date: 12/02/2024 11:51 Report Date: 12/02/2024 [...] Long M.D. 12/02/2024 11:52 AM Dictation Location: [place] [address] Electronically authenticated by: [id number] Y Date: 12/02/2024 11:52 Dictated By: Madie Long M.D. Signed By: 12/02/24 1154 DD/ 1152 TD/TT: Activity Aide: [facility] Radiology Study observation (narrative) [facility] US OB BPP W NON-STRESS Ordered By: Radiologist Radiology on 12-02-2024 [facility] Work Phone: Urinalysis macro (dipstick) panel (U)on 11-27-2024 Bilirubin, UA Negative Negative - 4(70) +++ mg/dL [facility] Blood, UA Negative Negative - 50 Dario/mcL [facility] Clarity, UA Clear [facility] re Color, UA Yellow [facility] Glucose, UA Negative Negative - 1999(110) ++++ mg/dL [facility] Interpretation and review of laboratory results Abnormal [facility] re Ketones, UA Negative Negative - 160(16) ++++ mg/dL [facility] Leukocytes, UA Positive Negative - 500+++ Oksana/mcL [facility] Comment on above: Moderate Nitrite, UA Negative Negative - Positive [facility] pH, UA 7 5 - 9 [facility] e Protein, UA Trace Negative - 1999(20) ++++ mg/dL [facility] Spec Grav, UA 1.015 1 - 1.[address] [facility] Urobilinogen, UA 0.2 0.2 - 12 mg/dL [facility] US OB BPP W NON-STRESS on 11-25-2024 [place] [address] Ultrasound Report Signed Patient: JANINA MARTEL MR#: [id number] : 1990 Acct:[id number] Age/Sex: 34 / F ADM Date: 11/25/24 Loc: [facility] 251-[address]: Sammie Higginbotham D.O. Ordering Physician: Sammie Higginbotham D.O. Date of Service: 11/25/24 Procedure(s): US OB BPP w non-stress Accession Number(s): [id number] cc: Sammie Higginbotham D.O.; Physician,Non-Staff Mylene The [place] [id number] Patient Name: JANINA MARTEL MRN: [facility]:[id number] date: 1990 Sex: F Assigned Patient Location: US Current Patient Location: US Accession/Order Number: [id number] Exam Date: 11/25/2024 10:35 Report Date: 11/25/2024 [...] Long M.D. 11/25/2024 10:37 AM Dictation Location: [place] [address] Electronically authenticated by: [id number] Y Date: 11/25/2024 10:37 Dictated By: Madie Long M.D. Signed By: 11/25/24 1040 DD/ 1037 TD/TT: Activity Aide: [facility] Radiology, Radiologist, - 11/25/2024 [place] [address] Ultrasound Report Signed Patient: JANINA MARTEL MR#: [id number] : 1990 Acct:[id number] Age/Sex: 34 / F ADM Date: 11/25/24 Loc: [facility] 251-[address]: Sammie Higginbotham D.O. Ordering Physician: Sammie Higginbotham D.O. Date of Service: 11/25/24 Procedure(s): US OB BPP w non-stress Accession Number(s): [id number] cc: Sammie Higginbotham D.O.; Physician,Non-Staff [place] [address] Patient Name: JANINA MARTEL MRN: [id number] date: 1990 Sex: F Assigned Patient Location: Current Patient Location: Accession/Order Number: [id number] Exam Date: 11/25/2024 10:35 Report Date: 11/25/2024 [...] Long M.D. 11/25/2024 10:37 AM Dictation Location: [place] [address] Electronically authenticated by: [id number] Y Date: 11/25/2024 10:37 Dictated By: Madie Long M.D. Signed By: 11/25/24 1040 DD/ 1037 TD/TT: Activity Aide: [facility] Radiology Study observation (narrative) [facility] US OB BPP W NON-STRESS Ordered By: Radiologist Radiology on 11-25-2024 [facility] [employer] Work Phone: US OB BPP W NON-STRESS on 11-18-2024 [place] [address] Ultrasound Report Signed Patient: JANINA MARTEL MR#: [id number] : 1990 Acct:[id number] Age/Sex: 34 / F ADM Date: 11/18/24 Loc: [facility] 250-[address]: Sammie Higginbotham D.O. Ordering Physician: Sammie Higginbotham D.O. Date of Service: 11/18/24 Procedure(s): US OB BPP w non-stress Accession Number(s): [id number] cc: Sammie Higginbotham D.O.; Physician,Non-Staff [place] The [place] [address] Patient Name: JANINA MARTEL MRN: [id number]:[id number] date: 1990 Sex: F Assigned Patient Location: [facility] Current Patient Location: [facility] Accession/Order Number: [id number] Exam Date: 11/18/2024 09:24 Report Date: 11/18/2024 [...] Long M.D. 11/18/2024 9:26 AM Dictation Location: [place] [address] Electronically authenticated by: [id number] Y Date: 11/18/2024 09:26 Dictated By: Madie Long M.D. Signed By: 11/18/24927 DD/ 5 TD/TT: Activity Aide: [facility] Radiology, Radiologist, MD - 11/18/2024 [place] [address] Ultrasound Report Signed Patient: JANINA MARTEL MR#: [id number] : 1990 Acct:[id number] Age/Sex: 34 / F ADM Date: 11/18/24 Loc: [facility] 250-[address]: Sammie Higginbotham D.O. Ordering Physician: Sammie Higginbotham D.O. Date of Service: 11/18/24 Procedure(s): US OB BPP w non-stress Accession Number(s): [id number] cc: Sammie Higginbotham D.O.; Physician,Non-Staff M[place] The [place] [id number] Patient Name: JANINA MARTEL MRN: [facility]:[id number] date: 1990 Sex: F Assigned Patient Location: [facility] Current Patient Location: [facility] Accession/Order Number: [id number] Exam Date: 11/18/2024 09:24 Report Date: 11/18/2024 [...] is in low-normal range. Total score: 8/ US/US OB BPP w non-stress IMPRESSION: NORMAL BIOPHYSICAL PROFILE . Impression dictated by: Madie Long M.D. 11/18/2024 9:26 AM Dictation Location: [place] [address] Electronically authenticated by: [id number] Y Date: 11/18/2024 09:26 Dictated By: Madie Long M.D. Signed By: 11/18/2428 DD/ 5 TD/TT: Activity Aide: [facility] Radiology Study observation (narrative) [facility] OB BPP W NON-STRESS Ordered By: Radiologist Radiology on 11-18-2024 [facility] [employer] Work Phone: TB TOTAL PROTEIN 24 HOUR UR INEon 11-13-2024 Interpretation and review of laboratory results Abnormal [facility] re Protein (U) [Mass/Vol] 10.8 mg/dL [facility] - 11.9 mg/dL [facility] TOTAL PROTEIN 24 HOUR URINE 302.4 High [facility] [employer] TOTAL VOLUME 24 HOUR URINE 2800 mL/24hr [facility] [employer] Urinalysis macro (dipstick) panel (U)on 11-13-2024 Bilirubin, UA Negative Negative - 4(70) +++ mg/dL [facility] Blood, UA Negative Negative - 50 Dario/mcL [facility] Clarity, UA Clear [facility] [employer] [facility] Color, UA Yellow [facility] [employer] Glucose, UA Negative Negative - 2000(110) ++++ mg/dL [facility] Interpretation and review of laboratory results Abnormal [facility] Ketones, UA Positive Negative - 160(16) ++++ mg/dL [facility] Comment on above: 40 Leukocytes, UA Trace Negative - 500+++ Oksana/mcL [facility] Nitrite, UA Negative Negative - Positive [facility] pH, UA 6.5 5 - 9 [facility] e Protein, UA Negative Negative - 2000(20) ++++ mg/dL [facility] Spec Grav, UA 1.005 1 - 1.[address] [facility] Urobilinogen, UA 0.2 0.2 - 12 mg/dL [facility] US OB BPP W NON-STRESS on 11-12-2024 [place] [address] Ultrasound Report Signed Patient: JANINA MARTEL MR#: [id number] : 1990 Acct:[id number] Age/Sex: 34 / F ADM Date: 11/12/24 Loc: [facility] 254-[address]: Sammie Higginbotham D.O. Ordering Physician: Sammie Higginbotham D.O. Date of Service: 11/12/24 Procedure(s): US OB BPP w non-stress Accession Number(s): [id number] cc: Sammie Higginbotham D.O.; Physician,Non-Staff M.Kaylee The [place] [address] Patient Name: JANINA MARTEL MRN: [id number] date: 1990 Sex: F Assigned Patient Location: [facility] Current Patient Location: [facility] Accession/Order Number: [id number] Exam Date: 11/12/2024 12:13 Report Date: 11/12/2024 [...] Long M.D. 11/12/2024 12:14 PM Dictation Location: [place] [address] Electronically authenticated by: [id number] Y Date: 11/12/2024 12:14 Dictated By: Madie Long M.D. Signed By: 11/12/24 1217 DD/ TD/TT: Activity Aide: [facility] Radiology, Radiologist, MD - 11/12/2024 [place] [address] Ultrasound Report Signed Patient: JANINA MARTEL MR#: [id number] : 1990 Acct:[id number] Age/Sex: 34 / F ADM Date: 11/12/24 Loc: [facility] 254-[address]: Sammie Higginbotham D.O. Ordering Physician: Sammie Higginbotham D.O. Date of Service: 11/12/24 Procedure(s): US OB BPP w non-stress Accession Number(s): [id number] cc: Sammie Higginbotham D.O.; Physician,Non-Staff [place] The [place] [id number] Patient Name: JANINA MARTEL MRN: [facility]:[id number] date: 1990 Sex: F Assigned Patient Location: [facility] Current Patient Location: [facility] Accession/Order Number: [id number] Exam Date: 11/12/2024 12:13 Report Date: 11/12/2024 12:14 At the request of: SAMMIE NEFTALY DO Procedure: US OB BPP w non-stress [...] Long M.D. 11/12/2024 12:14 PM Dictation Location: [place] [address] Electronically authenticated by: [id number] Y Date: 11/12/2024 12:14 Dictated By: Madie Long M.D. Signed By: 11/12/24 1217 DD/ 1214 TD/TT: Activity Aide: [facility] [employer] Radiology Study observation (narrative) [facility] OB BPP W NON-STRESS Ordered By: Radiologist Radiology on 11-12-2024 [facility] [employer] Work Phone: OB FOLLOW UP TRANSABDOMIN AL APPROACHon 10-30-2024 [...] PHD at 30-Oct-2024 11:19:03 PM [facility] Normal Not Available Comment on above: Order Comment: US OB SCAN FOR GROWTH Estimated Date of Delivery: 01/06/25 Gestational Age as of 10/01/2024: 26w1d Urinalysis macro (dipstick) panel (U)on 10-30-2024 Bilirubin, UA Negative Negative - 4(70) +++ mg/dL [facility] Blood, UA Negative Negative - 50 Dario/mcL [facility] Clarity, UA Clear [facility] Color, UA Yellow [facility] Glucose, UA Negative Negative - 1999(110) ++++ mg/dL [facility] Interpretation and review of laboratory results Abnormal [facility] Ketones, UA Negative Negative - 160(16) ++++ mg/dL [facility] Leukocytes, UA Positive Negative - 500+++ Oksana/mcL [facility] Comment on above: small Nitrite, UA Negative Negative - Positive [facility] pH, UA 7 5 - 9 [facility] Protein, UA Negative Negative - 1999(20) ++++ mg/dL [facility] Spec Grav, UA 1.01 1 - 1.03 [facility] care Urobilinogen, UA 0.2 0.2 - 12 mg/dL [facility] Urinalysis macro (dipstick) panel (U)on 09-02-2024 Bilirubin, UA Negative Negative - 4(70) +++ mg/dL [facility] Blood, UA Negative Negative - 50 Dario/mcL [facility] Healthcare Clarity, UA Clear [facility] Color, UA Yellow [facility] Glucose, UA Negative Negative - 1999(110) ++++ mg/dL [facility] Interpretation and review of laboratory results Abnormal [facility] re Ketones, UA Negative Negative - 160(16) ++++ mg/dL [facility] Leukocytes, UA Positive Negative - 500+++ Oksana/mcL [facility] Comment on above: Large Nitrite, UA Negative Negative - Positive [facility] pH, UA 7 5 - 9 [facility] [employer] Protein, UA Negative Negative - 1999(20) ++++ mg/dL [facility] Spec Grav, UA 1.01 1 - 1.[address] [facility] Urobilinogen, UA 0.2 0.2 - 12 mg/dL [facility] US OB 14+ WEEKS [...] II, MD, PHD at 22-Aug-2024 08:46:17 AM [facility] Normal Not Available Comment on above: Order Comment: US OB ANATOMY SINGLE W US OB CERVICAL LENGTH Estimated Date of Delivery: 01/06/25 Gestational Age as of 08/05/2024: 18w0d IGP,APTIMA HPV,AGE GDLNon AGE GDLN ACOG TESTING Note . [facility] Comment on above: TESTS RESULT FLAG UN ITS REF RANGE LAB Clinician Provided Cytology Information Source.............Cervix Other.............. No. of containers..01 ThinPrep Vial Age Algo ACOG Maria Antonia... 30-65 01 FLAG LEGEND: L-Low Normal,H-High Normal,LL-Alert Low,HH-Alert High <-Panic Low,>-Panic High,A-Abnormal,AA-Critical Abnormal Performed at: 01 =G [address] [place] [address] Asha Garza MD, HPV APTIMA Negative Negative [facility] Comment on above: This nucleic acid am plification test detects fourteen high- risk HPV types (16,18,31,33,35,39,45,51,52,56,58,59,66,68) without differentiation. Performed at: =G - [facility] [address], [place] [id number] Expediter: Asha Garza MD, Phone: [phone] Performed at: - [facility] [place] [address] [facility] [place], [place] [id number] Expediter: Asha Garza MD, Phone: [phone] IGP, APTIMA HPV, RFX 16/18,45 Note . [facility] Comment on above: TESTS RESULT FLAG UN ITS REF RANGE LAB DIAGNOSIS: 02 NEGATIVE FOR INTRAEPITHELIAL LESION OR MALIGNANCY. Specimen adequacy: 02 Satisfactory for evaluation. Endocervical and/or squamous metaplastic cells (endocervical component) are present. Performed by: Rajani Pablo, Music Theory Teacher (ASCP) . 02 Note: Note 02 The [...] High,A-Abnormal,AA-Critical Abnormal Performed at: 02 [address] [facility] [place] [address] [place] [address] Asha Garza MD, SPATULA-ALONE CERVIX [facility] e RECURRENT VAGINITIS (HTRX)on 08-07-2024 ATOPOBIUM VAGINAE 0 [facility] ATOPOBIUM VAGINAE Not detected [facility] BVAB 2,3 (BACTERIAL VAGINOSIS ASSOCIATED BACTERIA 2, 3); MOBILUNCUS SPP 0 [facility] BVAB 2,3 (BACTERIAL VAGINOSIS ASSOCIATED BACTERIA 2, 3); MOBILUNCUS SPP Not detected [facility] ELODIA ALBICANS, PARAPSILOSIS, TROPICALIS 0 [facility] ELODIA ALBICANS, PARAPSILOSIS, TROPICALIS Not detected [facility] ELODIA GLABRATA 0 [facility] Hea lthcare ELODIA GLABRATA Not detected [facility] ELODIA KRUSEI 0 [facility] Healt hcare ELODIA KRUSEI Not detected [facility] Hea lthcare CHLAMYDIA TRACHOMATIS 0 [facility] CHLAMYDIA TRACHOMATIS Not detected [facility] Healthcare GARDNERELLA VAGINALIS 0 [facility] GARDNERELLA VAGINALIS Not detected [facility] Healthcare MEGASPHAERA (TYPES 1, 2) 0 [facility] MEGASPHAERA (TYPES 1, 2) Not detected [facility] MYCOPLASMA GENITALIUM 0 [facility] MYCOPLASMA GENITALIUM Not detected [facility] NEISSERIA GONORRHOEAE 0 [facility] NEISSERIA GONORRHOEAE Not detected [facility] TRICHOMONAS VAGINALIS 0 [facility] TRICHOMONAS VAGINALIS Not detected [facility] GLUCOSE TOLERANCE 3 HOURon 0 08-03-2024 GLUCOSE TOLERANCE 3 HOUR mg/dL [facility] Comment on above: GLU FAST 94 (<95) Co l: 08/03/24 0809 GLU 1HR 163 (<180) Col: 08/03/24 0912 GLU 2HR 114 (<155) Col: 08/03/24 1012 GLU 3HR 109 (<140) Col: 08/03/24 1112 [facility] GLUCOSE 1 HOURon 07-27-2024 Glucose [Mass/Vol] 151 mg/dL High NINF - 13 0 mg/dL [facility] Interpretation and review of laboratory results Abnormal [facility] re [facility] ALL CBC WITH AUTO DIFFon BASOPHILS ABSOLUTE AUTO 0 [facility] Basophils/100 WBC (Bld) 0.3 % 0.2 - 2.0 % [facility] Eosinophils/100 WBC (Bld) 0.2 % Low 0.9 - 7.0 % [facility] Erythrocyte distribution width (RBC) [Ratio] 13.5 % 11.0 - 15.0 % [facility] Hematocrit (Bld) [Volume fraction] 36 % 36.0 - 48.0 % [facility] Hemoglobin (Bld) [Mass/Vol] 12.5 g/dL 12.0 - 16.0 g/dL [facility] IMMATURE GRANULOCYTES ABS AUTO 0.05 High [facility] Immature granulocytes/100 WBC (Bld) 0.4 % 0.0 - 0.5 % [facility] Interpretation and review of laboratory results Abnormal [facility] re LYMPHOCYTES ABSOLUTE AUTO 2.1 [facility] Lymphocytes/100 WBC (Bld) 16 % Low 20.5 - 60.0 % [facility] MCH (RBC) [Entitic mass] 30.1 pg 26.7 - 34.0 pg [facility] MCHC (RBC) [Mass/Vol] 34.7 g/dL 29.9 - 35.2 g/dL [facility] MCV (RBC) [Entitic vol] 86.7 fL 81.0 - 99.0 fL [facility] MONOCYTES ABSOLUTE AUTO 0.9 High [facility] Healthcare Monocytes/100 WBC (Bld) 6.6 % 1.7 - 12.0 % [facility] Healthcare NEUTROPHILS ABSOLUTE AUTO 9.9 High [facility] Healthcare Neutrophils/100 WBC (Bld) 76.5 % High 43.0 - 75.0 % [facility] Platelet mean volume (Bld) [Entitic vol] 10.7 fL 9.5 - 13.5 fL [facility] TBH EO # 0 [facility] TBH PLT 276 [facility] TB[facility] RBC 4.15 Low [facility] TBH WBC 12.9 High [facility] HCG ( test) Ql (U)o n 06-07-2024 Interpretation and review of laboratory results Abnormal [facility] re Preg Test, Ur Positive Negative [facility] US OB TRANSVAGINALon 025 US [...] x 4.7 cm (8 weeks, 3 days). [place] rump length is 2.5 cm (9 weeks, [...] UA Negative Negative - 4(70) +++ mg/dL [facility] Blood, UA Negative Negative - 50 Dario/mcL [facility] Clarity, UA Clear [facility] re Color, UA Yellow [facility] Glucose, UA Negative Negative - 1999(110) ++++ mg/dL [facility] Interpretation and review of laboratory results Normal [facility] re Ketones, UA Negative Negative - 160(16) ++++ mg/dL [facility] Leukocytes, UA Negative Negative - 500+++ Oksana/mcL [facility] Nitrite, UA Negative Negative - Positive [facility] pH, UA 5.5 5 - 9 [facility] Protein, UA Negative Negative - 1999(20) ++++ mg/dL [facility] Spec Grav, UA 1.015 1 - 1.[address] [facility] Urobilinogen, UA 0.2 0.2 - 12 mg/dL [facility] PREG QUANT HCGon 04-05- 024 HCG QUANTITATIVE <1 mIU/mL [facility] Comment on above: 5-50 0.2-1 WEEK 50-500 1-2 WEEKS 100-5,000 2-3 WEEKS 500-10,000 3-4 WEEKS 1,000-50,000 4-5 WEEKS 10,000-100,000 5-6 WEEKS 15,000-200,000 6-8 WEEKS 10,000-100,000 2-3 [facility] 03-29-2 024 HCG QUANTITATIVE 15 mIU/mL [facility] Comment on above: 5-50 0.2-1 WEEK 50-500 1-2 WEEKS 100-5,000 2-3 WEEKS 500-10,000 3-4 WEEKS 1,000-50,000 4-5 WEEKS 10,000-100,000 5-6 WEEKS 15,000-200,000 6-8 WEEKS 10,000-100,000 2-3 [facility] PREG QUANT HCGon 03-25-2 024 HCG QUANTITATIVE 22 mIU/mL [facility] Comment on above: 5-50 [...] 2: 21 to 29on 09-22-2021 . . [facility] Comment on above: Performed By: #### [id number] #### [facility] [address] [place] [address] Dr. Yariel Huynh Age Gdln ACOG Testing - [facility] Comment on above: Performed By: #### 4 [id number] #### [facility] [address] [place] [address] Dr. Yariel Huynh DIAGNOSIS: Comment [facility] Comment on above: Result Comment: NEGA TIVE FOR INTRAEPITHELIAL LESION OR MALIGNANCY. Performed By: #### 4 [id number] #### [facility] [address] [place] [address] Dr. Yariel Huynh Methodology: Comment [facility] Comment on above: Result Comment: This liquid based ThinPrep(R) pap test was screened with the use of an image guided system. Performed By: #### 4 [id number] #### [facility] [address] [place] [address] Dr. Yariel Huynh Note: Comment [facility] Comment on above: Result Comment: The Pap smear is a screening test designed to aid in the detection of premalignant and malignant conditions of the uterine cervix. It is not a diagnostic procedure and should not be used as the sole means of detecting cervical cancer. Both false-positive and false-negative reports do occur. . Performed By: #### 4 [id number] #### [facility] [address] [place] [address] Dr. Yariel Huynh Performed by: Comment Normal [facility] Comment on above: Result Comment: Carole Lee, Music Theory Teacher (ASCP) Performed By: #### 4 [id number] #### [facility] [address] [place] [address] Dr. Yariel Huynh Reflex Criteria: Comment Normal [facility] Comment on above: Result Comment: The HPV DNA reflex criteria were not met with this specimen result therefore, no HPV testing was performed. . Performed By: #### 4 [id number] #### [facility] [address] [place] [address] Dr. Yariel Huynh Specimen adequacy: Comment Normal [facility] Comment on above: Result Comment: Sati sfactory for evaluation. Endocervical and/or squamous metaplastic cells (endocervical component) are present. Performed By: #### 4 [id number] #### [facility] [address] [place] [address] Dr. Yariel Huynh RUBELLA AB IGGon 12-10-2020 Rubella Antibodies, IgG 1.46 index Normal Immune >0.99 [facility] Comment on above: Result Comment: Non- immune <0.90 Equivocal 0.90 - 0.99 Immune >0.99 Performed By: #### R [id number] #### [facility] [address] [place] [address] Clyde Ramachandran CBC AUTO DIFFon 12-09-2020 BASO # 0.1 103/ul Normal 0.0-0.1 [facility] Comment on above: Performed By: #### 4 [id number] #### [facility] [address] [place] [address] Dr. Yariel Huynh Basophils/100 WBC (Bld) 0.3 % Normal 0.2-2.0 [facility] Comment on above: Performed By: #### 4 [id number] #### [facility] [address] [place] [address] Dr. Yariel Huynh EO # 0.0 103/ul Normal 0.0-0.7 [facility] Comment on above: Performed By: #### 4 [id number] #### [facility] [address] [place] [address] Dr. Yariel Huynh Eosinophils/100 WBC (Bld) 0.1 % Critically low 0.9-7.0 [facility] Comment on above: Performed By: #### 4 [id number] #### [facility] [address] [place] [address] Dr. Yariel Huynh Erythrocyte distribution width (RBC) [Ratio] 13.9 % Normal 11.0-15.0 [facility] Comment on above: Performed By: #### 4 [id number] #### [facility] [address] [place] [address] Dr. Yariel Huynh Hematocrit (Bld) [Volume fraction] 29.5 % Critically low 36.0-48.0 [facility] Comment on above: Performed By: #### 4 [id number] #### [facility] [address] [place] [address] Dr. Yariel Huynh Hemoglobin (Bld) [Mass/Vol] 9.3 g/dL Critically low 12.0-16.0 [facility] Comment on above: Performed By: #### 4 [id number] #### [facility] [address] [place] [address] Dr. Yariel Huynh IG # 0.08 10e3/ul Critically high 0.00-0.03 [facility] Comment on above: Performed By: #### 4 [id number] #### [facility] [address] [place] [address] Dr. Yariel Huynh IG % 0.5 % Normal 0.0-0.5 [facility] Comment on above: Performed By: #### 4 [id number] #### [facility] [address] [place] [address] Dr. Yariel Huynh LYMPH # 1.7 103/ul Normal 1.2-3.8 [facility] Comment on above: Performed By: #### 4 [id number] #### [facility] [address] [place] [address] Dr. Yariel Huynh Lymphocytes/100 WBC (Bld) 10.8 % Critically low 20.5-60.0 [facility] Comment on above: Performed By: #### 4 [id number] #### [facility] [address] [place] [address] Dr. Yariel Huynh MANUAL DIFF REQ NO Normal [facility] Comment on above: Performed By: #### 4 [id number] #### [facility] [address] [place] [address] Dr. Yariel Huynh MCH (RBC) [Entitic mass] 26.2 pg Critically low 26.7-34.0 [facility] Comment on above: Performed By: #### 4 [id number] #### [facility] [address] [place] [address] Dr. Yariel Huynh MCHC (RBC) [Mass/Vol] 31.5 g/dL Normal 29.9-35.2 [facility] Comment on above: Performed By: #### 4 [id number] #### [facility] [address] [place] [address] Dr. Yariel Huynh MCV (RBC) [Entitic vol] 83.1 fL Normal 81.0-99.0 [facility] Comment on above: Performed By: #### 4 [id number] #### [facility] [address] [place] [address] Dr. Yariel Huynh MONO # 0.8 103/ul Normal 0.3-0.8 [facility] Comment on above: Performed By: #### 4 [id number] #### [facility] [address] [place] [address] Dr. Yariel Huynh Monocytes/100 WBC (Bld) 5.2 % Normal 1.7-12.0 [facility] Comment on above: Performed By: #### 4 [id number] #### [facility] [address] [place] [address] Dr. Yariel Huynh NEUT # 12.8 103/ul Critically high 1.4-6.5 [facility] Comment on above: Performed By: #### 4 [id number] #### [facility] [address] [place] [address] Dr. Yariel Huynh Neutrophils/100 WBC (Bld) 83.1 % Critically high 43.0-75.0 [facility] Comment on above: Performed By: #### 4 [id number] #### [facility] [address] [address] [address] Yariel Huynh Platelet mean volume (Bld) [Entitic vol] 12.6 fL Normal 9.5-13.5 [facility] Comment on above: Performed By: #### 4 [id number] #### [facility] [address] [address] [address] Yariel Huynh PLT 203 103/ul Normal 150-450 [facility] Comment on above: Performed By: #### 4 [id number] #### [facility] [address] [address] [address] Yariel Huynh RBC 3.55 106/ul Critically low 4.20-5.40 [facility] Comment on above: Performed By: #### 4 [id number] #### [facility] [address] [place] [address] Dr. Yariel Huynh WBC 15.4 103/ul Critically high 4.0-11.0 [facility] Comment on above: Performed By: #### 4 [id number] #### [facility] [address] [place] [address] Dr. Yariel Huynh ASYMPTOMATIC COVID-19 ANTIGE Non 12-08-2020 EUA Statement SEE BELOW Normal [facility] Comment on above: Result Comment: This [...] is revoked sooner. Performed By: #### 4 [id number] #### [facility] [address] [place] [address] Dr. Yariel Huynh SARS-CoV-2 (COVID-19) RNA ESTEBAN+probe Ql (Unsp spec) Negative Normal NEGATIVE [facility] Comment on above: Result Comment: Nega tive results are presumptive. They do not preclude infection and should not be used as the sole basis for treatment decisions. Additional confirmatory testing by a molecular method should be considered. Performed By: #### 4 [id number] #### [facility] [address] [place] [address] Dr. Yariel Huynh BUNon 12-08-2020 Urea nitrogen [Mass/Vol] 15.0 mg/dL Normal 7.0-17.0 [facility] Comment on above: Performed By: #### 4 [id number] #### [facility] [address] [place] [address] Dr. Yariel Huynh CBC AUTO DIFFon 12-08-2020 BASO # 0.0 103/ul Normal 0.0-0.1 [facility] Comment on above: Performed By: #### 4 [id number] #### [facility] [address] [place] [address] Dr. Yariel Huynh Basophils/100 WBC (Bld) 0.3 % Normal 0.2-2.0 [facility] Comment on above: Performed By: #### 4 [id number] #### [facility] [address] [place] [address] Dr. Yariel Huynh EO # 0.0 103/ul Normal 0.0-0.7 [facility] Comment on above: Performed By: #### 4 [id number] #### [facility] [address] [place] [address] Dr. Yariel Huynh Eosinophils/100 WBC (Bld) 0.4 % Critically low 0.9-7.0 [facility] Comment on above: Performed By: #### 4 [id number] #### [facility] [address] [place] [address] Dr. Yariel Huynh Erythrocyte distribution width (RBC) [Ratio] 13.8 % Normal 11.0-15.0 [facility] Comment on above: Performed By: #### 4 [id number] #### [facility] [address] [address] [address] Yariel Huynh Hematocrit (Bld) [Volume fraction] 31.8 % Critically low 36.0-48.0 [facility] Comment on above: Performed By: #### 4 [id number] #### [facility] [address] [place] [address] Dr. Yariel Huynh Hemoglobin (Bld) [Mass/Vol] 10.1 g/dL Critically low 12.0-16.0 [facility] Comment on above: Performed By: #### 4 [id number] #### [facility] [address] [place] [address] Dr. Yariel Huynh IG # 0.07 10e3/ul Critically high 0.00-0.03 [facility] Comment on above: Performed By: #### 4 [id number] #### [facility] [address] [place] [address] Dr. Yariel Huynh IG % 0.7 % Critically high 0.0-0.5 [facility] Comment on above: Performed By: #### 4 [id number] #### [facility] [address] [place] [address] Dr. Yariel Huynh LYMPH # 2.3 103/ul Normal 1.2-3.8 [facility] Comment on above: Performed By: #### 4 [id number] #### [facility] [address] [place] [address] Dr. Yariel Huynh Lymphocytes/100 WBC (Bld) 22.7 % Normal 20.5-60.0 [facility] Comment on above: Performed By: #### 4 [id number] #### [facility] [address] [place] [address] Dr. Yariel Huynh MANUAL DIFF REQ NO Normal [facility] Comment on above: Performed By: #### 4 [id number] #### [facility] [address] [place] [address] Dr. Yariel Huynh MCH (RBC) [Entitic mass] 26.7 pg Normal 26.7-34.0 [facility] Comment on above: Performed By: #### 4 [id number] #### [facility] [address] [address] [address] Yariel Huynh MCHC (RBC) [Mass/Vol] 31.8 g/dL Normal 29.9-35.2 [facility] Comment on above: Performed By: #### 4 [id number] #### [facility] [address] [place] [address] Dr. Yariel Huynh MCV (RBC) [Entitic vol] 84.1 fL Normal 81.0-99.0 [facility] Comment on above: Performed By: #### 4 [id number] #### [facility] [address] [address] [address] Yariel Huynh MONO # 0.6 103/ul Normal 0.3-0.8 [facility] Comment on above: Performed By: #### 4 [id number] #### [facility] [address] [place] [address] Dr. Yariel Huynh Monocytes/100 WBC (Bld) 6.3 % Normal 1.7-12.0 [facility] Comment on above: Performed By: #### 4 [id number] #### [facility] [address] [address] [address] Yariel Huynh NEUT # 7.0 103/ul Critically high 1.4-6.5 [facility] Comment on above: Performed By: #### 4 [id number] #### [facility] [address] [place] [address] Dr. Yariel Huynh Neutrophils/100 WBC (Bld) 69.6 % Normal 43.0-75.0 [facility] Comment on above: Performed By: #### 4 [id number] #### [facility] [address] [address] [address] Yariel Huynh Platelet mean volume (Bld) [Entitic vol] 12.9 fL Normal 9.5-13.5 [facility] Comment on above: Performed By: #### 4 [id number] #### [facility] [address] [place] [address] Dr. Yariel Huynh PLT 193 103/ul Normal 150-450 [facility] Comment on above: Performed By: #### 4 [id number] #### [facility] [address] [place] [address] Dr. Yariel Huynh RBC 3.78 106/ul Critically low 4.20-5.40 [facility] Comment on above: Performed By: #### 4 [id number] #### [facility] [address] [place] [address] Dr. Yariel Huynh WBC 10.1 103/ul Normal 4.0-11.0 [facility] Comment on above: Performed By: #### 4 [id number] #### [facility] [address] [place] [address] Dr. Yariel Huynh CREATININEon 12-08-2020 Creatinine [Mass/Vol] 0.80 mg/dL Normal 0.52-1.04 [facility] Comment on above: Performed By: #### L DH, URIC, AST, ALT, BUN, CREA #### [facility] [address] [place] [address] Clyde Ramachandran EGFR-AF SERBIAN >60 Normal >=60 [facility] Comment on above: Performed By: #### L DH, URIC, AST, ALT, BUN, CREA #### [facility] [address] [place] [address] Clyde Ramachandran EGFR-NON AF SERBIAN >60 Normal >=60 [facility] Comment on above: Performed By: #### L DH, URIC, AST, ALT, BUN, CREA #### [facility] [address] [place] [address] Clyde Delgadilloen DRUG SCREEN RAPID (URINE)on 12-08-2020 AMP Negative Normal NEGATIVE [facility] Comment on above: Performed By: #### 4 [id number] #### [facility] [address] [place] [address] Dr. Yariel Huynh BAR Negative Normal NEGATIVE [facility] Comment on above: Performed By: #### 4 [id number] #### [facility] [address] [place] [address] Dr. Yariel Huynh [facility] Negative Normal NEGATIVE [facility] Comment on above: Performed By: #### 4 [id number] #### [facility] [address] [place] [address] Dr. Yariel Huynh BZO Negative Normal NEGATIVE [facility] Comment on above: Performed By: #### 4 [id number] #### [facility] [address] [place] [address] Dr. Yariel Huynh ROSA Negative Normal NEGATIVE [facility] Comment on above: Performed By: #### 4 [id number] #### [facility] [address] [place] [address] Dr. Yariel Huynh CUT-OFFS SEE BELOW Normal [facility] Comment on above: Result Comment: AMP (Amphetamine): 500ng/mL, BAR (Barbituates): 200 ng/mL, BZO (Benzodiazepines): 150 ng/mL, BUP (Buprenorphine): 10 ng/mL, ROSA (Cocaine): 150 ng/mL, mAMP (Methamphetamine): 500 ng/mL, MTD (Methadone): 200 ng/mL, OPI (Opiates): 100 ng/mL, OXY (Oxycodone): 100 ng/mL, PCP (Phencyclidine): 25 ng/mL, PPX (Propoxyphene): 300 ng/mL, THC (Cannabinoids): 50 ng/mL, TCA (Trycyclic Antidepressants): 300 ng/mL Performed By: #### 4 [id number] #### [facility] [address] [place] [address] Dr. Yariel Huynh DRUG CUT HEADER DRUG CLASS TEST SYSTEM CUT-OFF CONCENTRATIONS ARE FOLLOWS: Normal [facility] Comment on above: Performed By: #### 4 [id number] #### [facility] [address] [place] [address] Dr. Yariel Huynh mAMP Negative Normal NEGATIVE [facility] Comment on above: Performed By: #### 4 [id number] #### [facility] [address] [place] [address] Dr. Yariel Huynh MTD Negative Normal NEGATIVE [facility] Comment on above: Performed By: #### 4 [id number] #### [facility] [address] [place] [address] Dr. Yariel Huynh OPI Negative Normal NEGATIVE [facility] Comment on above: Performed By: #### 4 [id number] #### [facility] [address] [place] [address] Dr. Yariel Huynh OXY Negative Normal NEGATIVE [facility] Comment on above: Performed By: #### 4 [id number] #### [facility] [address] [place] [address] Dr. Yariel Huynh PCP Negative Normal NEGATIVE [facility] Comment on above: Performed By: #### 4 [id number] #### [facility] [address] [place] [address] Dr. Yariel Huynh PPX Negative Normal NEGATIVE [facility] Comment on above: Performed By: #### 4 [id number] #### [facility] [address] [place] [address] Dr. Yariel Huynh TCA Negative Normal NEGATIVE [facility] Comment on above: Performed By: #### 4 [id number] #### [facility] [address] [place] [address] Dr. Yariel Huynh THC Negative Normal NEGATIVE [facility] Comment on above: Performed By: #### 4 [id number] #### [facility] [address] [place] [address] Dr. Yariel Huynh LDHon 12-08-2020 LDH 163 U/L Normal 122-222 [facility] Comment on above: Performed By: #### L DH, URIC, AST, ALT, BUN, CREA #### [facility] [address] [place] [address] Clyde Ramachandran Cristal 12-08-2020 AST [Catalytic activity/Vol] 15 U/L Normal 14-36 [facility] Comment on above: Performed By: #### L DH, URIC, AST, ALT, BUN, CREA #### [facility] [address] [place] [address] [facility] ALT [Catalytic activity/Vol] 12 U/L Normal 9-52 [facility] Comment on above: Performed By: #### L DH, URIC, AST, ALT, BUN, CREA #### [facility] [address] [place], [place] [address] Clyde Ramachandran TYPE AND SCREENon 12-08-2020 TYPE AND SCREEN Negative Normal [facility] Comment on above: Performed By: #### T NS #### [facility] [address] [place], [place] [address] Clyde Ramachandran URIC ACID SERUMon 12-08-2020 Urate [Mass/Vol] 5.0 mg/dL Normal 2.5-6.2 [facility] Comment on above: Performed By: #### L DH, URIC, AST, ALT, BUN, CREA #### [facility] [address] [place], [place] [address] Clyde Ramachandran US PREG BIOPHY W NON [...] POLLO PABLO Date: 2020-12-08 08:45 Normal [facility] US PREG BIOPHY W NON STRESSo [...] by: SCOTT CORTES Date: 2020-12-01 10:52 Normal [facility] Vital Signs Date Time Vital Sign Value Performing Clinician Roxann torres 11-27-2024 11:41-0400 Body weight 78.47 kg Sammie Neftaly DO Work Phone: [facility] 11-27-2024 11:41-0400 Diastolic blood pressure 86 mm[Hg] Sammie Neftaly DO Work Phone: [facility] 11-27-2024 11:41-0400 Systolic blood pressure 140 mm[Hg] Sammie Neftaly DO Work Phone: [facility] 11-13-2024 10:28-0400 Body weight 78.65 kg Diya GEE Work Phone: [facility] 11-13-2024 10:28-0400 Diastolic blood pressure 78 mm[Hg] Diya GEE Work Phone: [facility] 11-13-2024 10:28-0400 Systolic blood pressure 130 mm[Hg] Diya GEE Work Phone: [facility] 10-30-2024 10:31-0400 Body weight 78.53 kg Sammie Neftaly DO Work Phone: [facility] 10-30-2024 10:31-0400 Diastolic blood pressure 78 mm[Hg] Sammie Neftaly DO Work Phone: [facility] 10-30-2024 10:31-0400 Systolic blood pressure 120 mm[Hg] Sammie Neftaly DO Work Phone: [facility] 10-01-2024 09:38-0400 Body weight 75.48 kg Lin Sellers [employer] Work Phone: [facility] 10-01-2024 09:38-0400 Diastolic blood pressure 76 mm[Hg] Lin Verito [employer] Work Phone: [facility] 10-01-2024 09:38-0400 Systolic blood pressure 120 mm[Hg] Lin Verito [employer] Work Phone: [facility] 09-02-2024 09:46-0400 Body weight 71.85 kg Sammie Neftaly DO Work Phone: [facility] 09-02-2024 09:46-0400 Diastolic blood pressure 82 mm[Hg] Sammie Neftaly DO Work Phone: [facility] 09-02-2024 09:46-0400 Systolic blood pressure 122 mm[Hg] Sammie Neftaly DO Work Phone: [facility] 08-05-2024 09:52-0500 Body weight 68.49 kg Diya GEE Work Phone: [facility] 08-05-2024 09:52-0500 Diastolic blood pressure 78 mm[Hg] Diya GEE Work Phone: [facility] 08-05-2024 09:52-0500 Systolic blood pressure 124 mm[Hg] Diya GEE Work Phone: [facility] 07-08-2024 09:52-0500 Body weight 67.31 kg Sammie Neftaly DO Work Phone: [facility] 07-08-2024 09:52-0500 Diastolic blood pressure 70 mm[Hg] Sammie Neftaly DO Work Phone: [facility] 07-08-2024 09:52-0500 Systolic blood pressure 118 mm[Hg] Sammie Neftaly DO Work Phone: [facility] 06-07-2024 09:47-0500 Body weight 66.22 kg Noms Nurse [facility] 06-07-2024 09:47-0500 Diastolic blood pressure 72 mm[Hg] [facility] Nurse [facility] 06-07-2024 09:47-0500 Systolic blood pressure 122 mm[Hg] [facility] Encounters Encounter Date Encounter Type Care Provider Facility Start: 12-11-2024 End: 12-11-2024 Bamboo flowsheet Sammie Neftaly DO Work Phone: [facility] Start: 12-11-2024 End: 12-11-2024 Bamboo flowsheet Sammie Neftaly DO Work Phone: [facility] Start: 12-09-2024 End: 12-09-2024 Clinisync Result Encounter Sammie Neftaly DO Work Phone: [facility] Unsolicited Start: 12-09-2024 End: 12-09-2024 Clinisync Result Encounter Sammie Neftaly DO Work Phone: [facility] Unsolicited Start: 12-02-2024 End: 12-02-2024 Clinisync Result Encounter Sammie Neftaly DO Work Phone: [facility] Unsolicited Start: 12-02-2024 End: 12-02-2024 Clinisync Result Encounter Sammie Neftaly DO Work Phone: [facility] Unsolicited Start: 11-27-2024 End: 11-27-2024 Bamboo flowsheet Sammie Neftaly DO Work Phone: [facility] Start: 11-27-2024 End: 11-27-2024 Bamboo flowsheet Sammie Neftaly DO Work Phone: [facility] Start: 11-27-2024 End: 11-27-2024 Office outpatient visit 15 minutes Sammie Neftaly DO Work Phone: [facility] Comment on above: Third trimester preg champ ([facility]); 34 weeks gestation of ([facility]); Hypertension affecting in third trimester ([facility]); Gestational diabetes mellitus (GDM), antepartum, gestational diabetes method of control unspecified ([facility]); H/O pre-eclampsia in prior , currently ([facility]) Start: 11-27-2024 End: 11-27-2024 ambulatory SAMMIE NEFTALY [...] visit 15 minutes Diya GEE Work Phone: [facility] Comment on above: Hypertension [...] 10-01-2024 End: 10-01-2024 Bamboo flowsheet Lin Sellers [employer] Work Phone: [facility] Start: 10-01-2024 End: 10-01-2024 Bamboo flowsheet Lin Sellers [employer] Work Phone: [facility] Start: 10-01-2024 End: 10-01-2024 Office outpatient visit 15 minutes Lin Sellers [employer] Work Phone: [facility] Comment on above: Second trimester pre gnancy; size inconsistent with dates; H/O pre-eclampsia in prior , currently Start: 10-01-2024 End: 10-01-2024 ambulatory LIN GREGGLY Not Available Start: 09-02-2024 End: 09-02-2024 Bamboo [...] screening Start: 09-02-2024 End: 09-02-2024 ambulatory SAMMIE NEFTLAY Not Available Start: 08-21-2024 End: 08-21-2024 ambulatory SAMMIE NEFTALY Not Available Start: 08-05-2024 End: 08-05-2024 Bamboo flowsheet Diya GEE Work Phone: [facility] Start: 08-05-2024 End: 08-08-2024 Bamboo flowsheet Diya GEE Work Phone: [facility] Start: 08-05-2024 End: 08-08-2024 Clinisync Result Encounter Diya GEE Work Phone: [facility] External Department Unsolicited Start: 08-05-2024 End: 08-07-2024 External Result Encounter Diay GEE Work Phone: [facility] Unsolicited [...] Patient encounter procedure Diya GEE Work Phone: [facility] Healthcare Start: 08-05-2024 End: 08-05-2024 ambulatory DIYA [...] Date Procedure Procedure Detail Performing Clinician Start: 12-09-2024 US OB BPP W NON-STRESS Sammie Neftaly DO Work Phone: Start: 12-02-2024 US OB BPP W NON-STRESS [...] Screening for malign ant neoplasm of cervix [facility] Start: 03-15-2028 Screening for malign ant neoplasm of cervix [facility] Start: 02-03-2025 Influenza vaccination N [facility] Start: 12-11-2024 End: 12-11-2024 Patient encounter procedure [facility] Comment on above: Arrived Start: 11-27-2024 End: 11-27-2024 Patient encounter procedure [...] control unspecified Expected: 10/30/2024 (Approximate), Expires: 05/02/2025 [facility] Work Phone: Comment on above: Expected: 10/30/2024 (Approximate), Expires: 05/02/2025 Start: 10-01-2024 End: 01-31-2025 US for US OB follow up transabdominal approach Imaging Routine H/O pre-eclampsia in prior , currently Expected: 10/01/2024, Expires: 01/31/2025 [facility] Work Phone: Comment on above: Expected: 10/01/2024 [...] EDT Ancillary Procedure [facility] [address] [place] [address] [facility] Start: 08-05-2024 End: [...] mellitus screening Expected: 07/08/2024 (Approximate), Expires: 07/08/2025 [facility] Work Phone: Comment on above: Expected: 07/08/2024 (Approximate), Expires: 07/08/2025 Start: 07-08-2024 End: 07-08-2024 [facility] on above: Arrived Start: 06-07-2024 End: 06-07-2025 ABO/Rh ABO/Rh Lab Routine Missed menses , unspecified gestational age Expected: 06/07/2024 (Approximate), Expires: 06/07/2025 [facility] Comment on above: Expected: 06/07/2024 (Approximate), Expires: 06/07/2025 Start: 06-07-2024 End: 06-07-2025 Blood type and Indirect antibody screen panel - Blood Type and screen Lab Routine Missed menses , unspecified gestational age Expected: 06/07/2024 (Approximate), Expires: 06/07/2025 [facility] Work Phone: Comment on above: Expected: 06/07/2024 (Approximate), Expires: 06/07/2025 Start: 06-07-2024 End: 06-07-2025 Drugs of abuse panel - Urine by Screen method Rapid drug screen, urine Lab Routine , unspecified gestational age Encounter for supervision of normal first in first trimester Expected: 06/07/2024 (Approximate), Expires: 06/07/2025 [facility] Comment on above: Expected: 06/07/2024 (Approximate), Expires: 06/07/2025 Start: 04-19-2024 End: 04-19-2024 ambulatory 04/19/2024 10:00 AM EST Initial [facility] [address] [place] [id number] [facility] Start: 04-19-2024 End: 04-19-2024 Professional / ancillary services management 04/19/2024 9:30 AM EST Ancillary Procedure [facility] [address] [address] [facility] Start: 02-04-2024 Influenza vaccination Influenza Vacc ine (#1) [facility] Start: 2013 Screening for malign ant neoplasm of cervix Pap Smear [facility] Bacteria identified in Urine by Culture Urine culture Microbiology Routine Missed menses Ordered: 06/07/2024 [facility] Comment on above: Ordered: 06/07/2024 CBC W Auto Different ial panel - Blood CBC and differential Lab Routine Missed menses , unspecified gestational age Ordered: 06/07/2024 [facility] Comment on above: Ordered: 06/07/2024 CHLAMYDIA TRACHOMATI S (GENITO/STI) CHLAMYDIA TRACHOMATIS (GENITO/STI) Lab Routine Exposure to STD Ordered: 08/05/2024 [facility] Comment on above: Ordered: 08/05/2024 Cytology Cervical or vaginal smear or scraping study Pap Smear Pathology and Cytology Routine Well woman exam with routine gynecological exam Ordered: 08/05/2024 [facility] Comment on above: Ordered: 08/05/2024 Hemoglobin A1c/Hemoglobin.total in Blood Hemoglobin A1c Lab Routine Missed menses , unspecified gestational age Ordered: 06/07/2024 [facility] Comment on above: Ordered: 06/07/2024 Hepatitis B virus surface Ag [Presence] in Serum or Plasma by Immunoassay Hepatitis B surface antigen Lab Routine Missed menses , unspecified gestational age Ordered: 06/07/2024 [facility] Comment on above: Ordered: 06/07/2024 Hepatitis C virus Ab [Presence] in Serum or Plasma by Immunoassay Hepatitis C antibody Lab Routine Missed menses , unspecified gestational age Ordered: 06/07/2024 [facility] Comment on above: Ordered: 06/07/2024 HIV-1/HIV-2 antigen/antibody combination immunoassay HIV-1 and HIV-2 antibodies Lab Routine Missed menses , unspecified gestational age Ordered: 06/07/2024 [facility] Comment on above: Ordered: 06/07/2024 Human papilloma viru s DNA [Presence] in Unspecified specimen by Probe with amplification HPV DNA probe, amplified Microbiology Routine Well woman exam with routine gynecological exam Ordered: 08/05/2024 [facility] Comment on above: Ordered: 08/05/2024 Neisseria gonorrhoea e DNA [Presence] in Unspecified specimen by ESTEBAN with probe detection Neisseria gonorrhea DNA probe, direct Lab Routine Exposure to STD Ordered: 08/05/2024 [facility] Comment on above: Ordered: 08/05/2024 Reagin Ab [Presence] in Serum by RPR RPR Lab Routine Missed menses , unspecified gestational age Ordered: 06/07/2024 [facility] Comment on above: Ordered: 06/07/2024 Rubella antibody, IgG Rubella an tibody, IgG Lab Routine Missed menses , unspecified gestational age Ordered: 06/07/2024 [facility] Comment on above: Ordered: 06/07/2024 SURESWAB(R) ADVANCED VAGINITIS PLUS, TMA SURESWAB(R) ADVANCED VAGINITIS PLUS, TMA Pathology and Cytology Routine Exposure to STD Ordered: 08/05/2024 [facility] Work Phone: Comment on above: Ordered: 08/05/2024 [facility] TOTAL PROTEIN 24 HOUR URINE [facility] TOTAL PROTEIN 24 HOUR URINE Lab Ordered: 11/13/2024 [facility] Comment on above: Ordered: 11/13/2024 Immunizations Immunization Date Immunization Notes Care Provider Khai lopez 05-09-2019 influenza virus vacc ine, unspecified formulation Sammie Higginbotham DO Work Phone: [facility] Payers Date Payer Category Payer Private Health Insurance [facility] [employer]ICA[facility] [id number] 2017 Medicaid [id number] 1992 Unknown [id number] 2.16.840.1.506140.3.579.2. 593 1992 Unknown [id number] 2.16.840.1.176216.3.579.2. 593 1992 Unknown [id number] 2.16840.1.766807.3.579.2. 593 1992 Unknown [id number] 2.16840.1.672130.3.579.2. 593 1992 Unknown [id number] 2.16.840.1.633496.3.579.2. 593 1992 Unknown [id number] 2.16.840.1.991922.3.579.2. 593 1992 Unknown [id number] 2.16.840.1.060347.3.579.2. 593 1992 Unknown [id number] 2.16.840.1.823075.3.579.2. 593 1992 Unknown [id number] 2.16.840.1.019177.3.579.2. 593 1992 Unknown [id number] 2.16.840.1.061156.3.579.2. 1259 1992 Unknown [id number] 2..840.1.165000.3.579.2. 1259 1992 Unknown [id number] 2.16.840.1.038477.3.579.2. 1259 1992 Unknown [id number] 2.16.840.1.155161.3.579.2. 1259 1992 Unknown [id number] 2.16.840.1.355910.3.579.2. 1259 1992 Unknown [id number] 2.16.840.1.964914.3.579.2. 1259 1992 Unknown [id number] 2.16.840.1.267659.3.579.2. 1259 1992 Unknown [id number] 2.16.840.1.623346.3.579.2. 1259 1992 Unknown [id number] 2.16.840.1.742980.3.579.2. 1259 1992 Unknown [id number] 2.16.840.1.301552.3.579.2. 1259 1992 Unknown [id number] 2.16.840.1.550980.3.579.2. 1259 1959 Self-pay [id number] 1957 Unknown [id number] Social History Date Type Detail Facility Tobacco smoking stat [facility] Tobacco smoking consumption unknown [facility] Start: 1990 Sex assigned at Not on file [facility] Gender identity Not on file [facility] Start: 04-15-2024 [facility] Medical Equipment Procedure Code Equipment Code Equipment Origin al Text Equipment Identifier Dates 1 strip by In Vi tro route Daily Use in the morning prior to breakfast, 1 hour after each meal for a total of 4times daily. [id number] Start: 10-01-2024 End: 11-13-2024 1 each by In Vit ro route Daily Use to check FSBS four times daily [id number] Start: 10-01-2024 End: 11-13-2024 Clinical Notes 06-07-2024 [...] nursing note reviewed. Exam conducted with a convenience recycle center tech present. Vitals: There is no height or weight on file to calculate BMI. BP: 140/86 Patient's last menstrual period was 04/01/2024. ASSESSMENT & PLAN ICD-10-CM 1. Third trimester ([facility]) Z34.93 POCT urinalysis dipstick manually resulted 2. 34 weeks gestation of ([facility]) Z3A.34 3. Hypertension affecting in third trimester ([facility]) O16.3 labetalol (Normodyne) 100 MG tablet 4. Gestational diabetes mellitus (GDM), antepartum, gestational diabetes method of control unspecified ([facility]) O24.419 5. H/O pre-eclampsia in prior , currently ([facility]) O09.299 Return OB: Patient presents today [...] Sammie Higginbotham DO documented in this encounter [facility] 11-13-2024 History of Presen t illness Narrative Reason for Appointment: Patient ID: Janina Martel is a 34 y.o. female who presents for Routine Visit Patient presents today for Return OB appointment. MEDICATIONS Current Outpatient Medications Medication Instructions Alcohol Swabs (Alcohol Prep Pad) 70 % pads 1 Pad, Topical, Daily, Use four times daily to check FSBS. Blood Glucose Monitoring Suppl (Writer's Bloq Glucometer) w/Device kit 1 kit, Does not [...] of: MARLEN Estrada documented in this encounter [facility] 10-30-2024 History of Presen t illness [...] to check FSBS. Blood Glucose Monitoring Suppl ([employer] Mobile Platform Glucometer) w/Device kit 1 kit, Does not [...] nursing note reviewed. Exam conducted with a convenience recycle center tech present. Vitals: There is no height or [...] Sammie Higginbotham DO documented in this encounter [facility] 10-01-2024 History of Presen t illness [...] nursing note reviewed. Exam conducted with a convenience recycle center tech present. Vitals: There is no height or [...] Lin Sellers NP documented in this encounter [facility] 09-02-2024 History of Presen t illness [...] nursing note reviewed. Exam conducted with a convenience recycle center tech present. Vitals: There is no height or [...] Sammie Higginbotham DO documented in this encounter [facility] 08-05-2024 History of Presen t illness [...] nursing note reviewed. Exam conducted with a convenience recycle center tech present. Vitals: There is no height or [...] of: MARLEN Estrada documented in this encounter [facility] 07-08-2024 History of Presen t illness [...] Sammie Higginbotham DO documented in this encounter [facility] 06-07-2024 History of Presen t illness [...] or undercooked meat, and stay away from [facility]. Patient has also been advised to not [...] , currently ([facility]) documented in this encounter [facility] Summary Purpose Family History No Family History Records FoundNo Family History Records Found Advance Directives No Advanced Directives Records FoundNo Advanced Directives Records Found Additional Source Comments INFORMATION SOURCE (unrecogn ized section and content) DATE CREATED AUTHOR 11/24/2021 Naya bustamante DATE CREATED AUTHOR AUTHOR'S ORGANIZ ATION 11/28/2024 [facility] Care Teams (unrecognized sec tion and content) Ehs Manager Relationship Specialty Start Date End Date Sammie Higginbotham DO [address] [place] [address] PCP - [facility] 09/04/23 Ehs Manager Relationship Specialty Start Date End Date Sammie Higginbotham DO [address] [place] [address] PCP - [facility] 09/04/23 Ehs Manager Relationship Specialty Start Date End Date Sammie Higginbotham DO [address] [place] [address] PCP [facility] 09/04/23 Ehs Manager Relationship Specialty Start Date End Date Neftaly, Sammie, DO [address] [place] [address] PCP [facility] 09/04/23 Ehs Manager Relationship Specialty Start Date End Date Neftaly, Sammie, DO [address], [facility] 09/04/23 Ehs Manager Relationship Specialty Start Date End Date Neftaly, Sammie, DO [address], [facility] 09/04/23 Ehs Manager Relationship Specialty Start Date End Date Neftaly, Sammie, DO [facility] [address], [facility] 09/04/23 Ehs Manager Relationship Specialty Start Date End Date Neftaly, Sammie, DO [facility] [address], [facility] PCP [facility] 09/04/23 Ehs Manager Relationship Specialty Start Date End Date Neftaly, Sammie, DO [address] [place] [address] [facility] 09/04/23 Ehs Manager Relationship Specialty Start Date End Date Neftaly, Sammie, DO [facility] [place] [address] PCP - [facility] 09/04/23 Ehs Manager Relationship Specialty Start Date End Date Sammie Higginbotham DO [address] [place] [address] PCP - [facility] 09/04/23 Ehs Manager Relationship Specialty Start Date End Date Sammie Higginbotham DO [address] [place] [address] PCP - [facility] 09/04/23 Reason for Visit (unrecogniz ed section [...] ON THE PRIMARY CLINICAL RECORDS. [facility]. provides no warranty or guarantee of the accuracy or completeness of information in this document.
== END 2024-12-12 09:16 | disposition home or self-care (01) ==
LOC: FBCO 09:10
PROVIDERS: Visit Provider Obstetrics & Gynecology
DX: O16.3 Unspecified maternal hypertension, third trimester (principal)
CPT/HCPCS: 59025

== ENCOUNTER 2024-12-16 04:55 | Inpatient (IN) | payer OTHER, SELFPAY ==
--- OUTSIDE RECORDS SUMMARY | 2020-09-22 12:30 | XMS_ITS | Continuity of Care Document ---
[facility] Address [address] [place] [address] Phone Care Team Providers Care [employer] Name Role Phone Rosemarie Arango MD Unavailable Unavailab le Procedures Procedure Date ADM SARSCOV2 100MCG/0.5ML2ND SARSCOV2 VAC 100MCG/0.5ML IM ADM SARSCOV2 100MCG/0.5ML1ST SARSCOV2 VAC 100MCG/0.5ML IM Advance Directives Directive Yes / No Effective Date File Name No Information Encounters Encounter Description Practice Location Reason(s) For Visit Diagnoses Date Provider Providers Copied on Encounter [facility], [address] [place], [place] [address], [place], [facility], tel:[phone] [facility] No Information 1 Conchita [place]. [address] [place] [address], [facility], . tel:[phone] [facility], [address] [place], [place] [address] [place], [facility], tel:[phone] [facility] No Information 1 [facility]. [address] [place] [address], [address] [place] [address]. tel:[phone] Family History Family Member Type Diagnosis Age At Onset No Information Immunizations Vaccine Date Status Comments COVID-19 Moderna 100mcg/0.5ml Pres Free Vaccine administered Source: New Immuniza tion Record COVID-19 Moderna 100mcg/0.5ml Pres Free Vaccine administered Source: New Immuniza tion Record Payers Payer name Insurance type Covered alliance party ID Authoriza tion(s) [employer] [place] [facility] [id number] [employer] [facility] [id number] [employer] [place] [facility] [id number] Social History Type Description Quantity Date Captured Comments Sex Female Smoking Status No Information Chief Complaint And Reason For Visit No Information Reason For Referral Reason For Referral No Information History Of Present Illness Encounter Date Complaint History Of Prese nt Illness No Information Functional Status Date Functional Assessmen t No Information Instructions Date Instruction Additional Infor mation No Information Assessments Type Assessment Date No Information Patient Care Teams Name Effective Dates (start - stop) Status Members No Information
--- OUTSIDE RECORDS SUMMARY | 2024-12-11 11:20 | XMS_ITS | Encounter Summary ---
Author Organization [facility] Address [address] [facility] [place] [address] Care Team Providers Care Mechanical Systems Engineer Name Role Phone NeftalyEmmy carranzay DO Unavailable Encounter Details Date Type Department Care Team (Late st Contact Info) Description 12/11/2024 11:20 AM EDT Routine [facility] OB [address] [place] [address] Michael Higginbotham, [address] [facility] [place] [address] 36 weeks gestation of ([facility]); Third trimester ([facility]); Hypertension affecting in third trimester ([facility]); Gestational diabetes mellitus (GDM), antepartum, gestational diabetes method of control unspecified ([facility]); H/O pre-eclampsia in prior , currently ([facility]) Social History Tobacco Use Types Packs/Day [...] Sign Reading Time Taken Comments Blood Pressure 130/82 12/11/2024 11:20 AM EDT Pulse - - Temperature - - Respiratory Rate - - Oxygen Saturation - - Inhaled Oxygen Concentration - - Weight 80.6 kg (177 lb 12.8 oz) 025 11:20 AM EDT Height - - Body Mass Index - - documented in this encounter Progress Notes * Madie Maldonado LPN - 12/11/2024 11:20 AM EDT Reason for Appointment: Patient ID: Bre Martel is a 34 y.o. female who presents for No chief complaint on file. Patient presents today for Return OB appointment. MEDICATIONS Current Outpatient Medications Medication Instructions Alcohol Swabs (Alcohol Prep Pad) 70 % pads 1 Pad, Topical, Daily, Use four times daily to check FSBS. Blood Glucose Monitoring Suppl ([employer] Glucometer) w/Device kit 1 kit, Does not [...] Constitutional: Appearance: Normal appearance. She is well-developed. Genitourinary: Vulva normal. Cardiovascular: Rate and Rhythm: Normal rate and [...] nursing note reviewed. Exam conducted with a gang leader present. Vitals: There is no height or weight on file to calculate BMI. BP: 130/82 Patient's last menstrual period was 04/01/2024. ASSESSMENT & PLAN ICD-10-CM 1. 36 weeks gestation of ([facility]) Z3A.36 POCT urinalysis dipstick manually resulted 2. Third trimester ([facility]) Z34.93 POCT urinalysis dipstick manually resulted CULTURE, GROUP B STREP WITH SUSCEPTIBLITY CULTURE, GROUP B STREP WITH SUSCEPTIBLITY 3. Hypertension affecting in third trimester ([facility]) O16.3 4. Gestational diabetes mellitus (GDM), antepartum, gestational diabetes method of control unspecified ([facility]) O24.419 5. H/O pre-eclampsia in prior , currently ([facility]) O09.299 Patient is doing well but has complaints of being tired and having maternal discomfort due to . Patient verbalized frequent movement and was instructed to perform kick counts three times per day. labor precautions were given, LARC consent was signed/declined, and GBS was obtained. Cervical check was performed and patient is 2cm dilated. Orders Placed This Encounter Procedures CULTURE, GROUP B STREP WITH SUSCEPTIBLITY POCT urinalysis dipstick manually resulted Follow Up: Patient is to return to office in 1 week for routine OB appointment Documented by Madie Maldonado LPN on behalf of: Michael Higginbotham DO documented in this encounter Plan of Treatment Scheduled Orders Name Type Priority Associated Diagnoses Orde r Schedule CULTURE, GROUP B STREP WITH SUSCEPTIBLITY Lab Routine Third trimester ([facility]) Expected: 12/11/2024, Expires: 12/11/2025 documented as of this encounter Procedures Procedure Name Priority Date/Time Associated Diagnosis Comments POCT URINALYSIS DIPSTICK Routine 12/11/2024 11:26 AM EDT 36 weeks gestation of ([facility]) Third trimester ([facility]) documented in this encounter Results * (ABNORMAL) POCT urinalysis dipstick manually resulted (12/11/2024 11:26 AM EDT) Color, UA Yellow Clarity, UA Clear Glucose, UA Negative Negative - 1999(110) ++++ mg/dL Bilirubin, UA Negative Negative - 4(70) +++ mg/dL Ketones, UA Negative Negative - 160(16) ++++ mg/dL Spec Grav, UA 1.010 1 - 1.03 Blood, UA Negative Negative - 50 Dario/mcL pH, UA 6.0 5 - 9 Protein, UA Negative Negative - 1999(20) ++++ mg/dL Urobilinogen, UA 0.2 0.2 - 12 mg/dL Leukocytes, UA Moderate Negative - 500+++ Oksana/mcL Nitrite, UA Negative Negative - Positive Urine 12/11/2024 11:2 6 AM EDT Michael Higginbotham DO POINT OF CARE TEST ENTER/EDIT OR DERABLES Final Result documented in this encounter Visit Diagnoses Diagnosis 36 weeks gestation of ([facility]) Third trimester ([facility]) state, incidental Hypertension affecting in third trimester ([facility]) Gestational diabetes mellitus (GDM), antepartum, gestational diabetes method of control unspecified ([facility]) H/O pre-eclampsia in prior , currently ([facility]) documented in this encounter Care Teams Mechanical Systems Engineer Relationship Specialty Start Date End Date Michael Higginbotham DO [address] [place], [place] [address] [address] PCP - [facility] 09/04/23 documented as of this encounter
[2024-12-16] VITALS (19 sets, daily range): BP systolic 117–144; BP diastolic 69–93; PULSE 79–115; TEMP 36.9
--- OUTSIDE RECORDS SUMMARY | 2024-12-16 04:59 | XMS_ITS | Encounter Summary ---
Author Organization [facility] Address [address] [place] [address] Care Team Providers Care Manager Of Security Name Role Phone Michael Higginbotham DO Unavailable Encounter Details Date Type Department Care Team (Late st Contact Info) Description 02/25/2023 Abstract [facility] [address] [place] [address] Michael Higginbotham, [address], [facility] Social History Tobacco Use Types Packs/Day Years Used Date Smoking Tobacco: Never Assessed Comments Unknown Sex and Gender Information Value Date Recorded Sex Assigned at Not on file Legal Sex Female 11:47 PM EDT Gender Identity Not on file Sexual Orientation Not on file documented as of this encounter Plan of Treatment Not on file documented as of this encounter Visit Diagnoses Not on filedocumented in this encounter Care Teams Manager Of Security Relationship Specialty Start Date End Date Michael Higginbotham DO [address], [facility] PCP - [facility] 09/04/23 documented as of this encounter
--- OUTSIDE RECORDS SUMMARY | 2024-12-16 04:59 | XMS_ITS | Encounter Summary ---
Author Organization [facility] Address [address] [place] [address] Care Team Providers Care [employer] Teacher Name Role Phone Neftaly Michael DO Unavailable Encounter Details Date Type Department Care Team (Late st Contact Info) Description 11/18/2024 Results Follow-Up [facility] [address] [place] [id number] Leora Loredo LPN [address] [place] [address] Social History Tobacco Use Types [...] documented in this encounter Plan of Treatment Not on file documented as of this encounter Visit Diagnoses Not on filedocumented in this encounter Care Teams [employer] Teacher Relationship Specialty Start Date End Date Michael Higginbotham DO [address], [place] [id number] PCP - [facility] 09/04/23 documented as of this encounter
--- OUTSIDE RECORDS SUMMARY | 2024-12-16 04:59 | XMS_ITS | CCD ---
Author Organization [facility] CliniSyin Care Team Providers Care Mop Man Name Role Phone NEFTALY, DR COCHRAN Attending Unavailable REQUEST, NONE LISTED Primary Care Unavaila ble NEFTALY, DR COCHRAN Admitting Unavailable NEFTALY, DR COCHRAN Admitting Unavailable REQUEST, NONE LISTED Primary Care Unavaila ble NEFTALY, DR COCHRAN Attending Unavailable NEFATLY, DR COCHRAN Attending Unavailable NEFTALY, DR COCHRAN Admitting Unavailable REQUEST, NONE LISTED Primary Care Unavaila ble NEFTALY, DR COCHRAN Admitting Unavailable NEFTALY, DR COCHRAN Attending Unavailable REQUEST, NONE LISTED Primary Care Unavaila ble NEFTALY, DR COCHRAN Consulting Unavailable NEFTALY, DR COCHRAN Admitting Unavailable NEFTALY, DR COCHRAN Attending Unavailable REQUEST, NONE LISTED Primary Care Unavaila ble KARASIPavan, DR LOTT Consulting Unavailable JERMYN, DR POLLO Gonzalez Consulting Unavailable NEFTALY, DR [...] ROBLES Attending Unavailable SAMMIE HIGGINBOTHAM Attending Unavailable SAMMIE HIGGINBOTHAM Attending Unavailable Medications Current Medications Medication Drug Class(es) Dates Sig (Normalized) Sig (Original) Blood Glucose Monitoring Suppl (D-Care Glucometer) w/Device kit (17 sources) Start: 10-01-2024 End: 10-01-2025 Blood Glucose Monitoring Suppl (D-Care Glucometer) w/Device kit Indications: Elevated glucose tolerance test 1 kit Daily Use four times daily to check FSBS. In the morning prior to breakfast & 1 hour after each meal for a total of 4times daily. 1 kit 10/01/2024 10/01/2025 Active isopropyl alcohol 0.7 ml/ml medicated pad (17 sources) Start: 10-01-2024 Alcohol Swabs (Alcohol Prep Pad) 70 % pads Indications: Elevated glucose tolerance test Apply 1 Pad topically Daily Use four times daily to check FSBS. 150 each 3 10/01/2024 Active labetalol hydrochloride 100 mg oral tablet (15 sources) beta-Adrenergic Katarina Start: 11-27-2024 End: 11-27-2025 [...] tolerance complicating ; childbirth; or the puerperium (12 sources) Gestational diabetes mellitus in childbirth, diet controlled; Translations: [Gestational diabetes mellitus in , diet controlled] Onset: 12-03-2020 Episodic Headache; including migraine (1 source) Headache; including migraine; Translations: [HEADACHE UNSPECIFIED] Onset: 12-22-2020 Hypertension complicating ; childbirth and the puerperium (6 sources) Hypertension complicating ; Translations: [Unspecified maternal [...] unspecified trimester] 10-01-2024 Episodic Other complications of (8 sources) History of pre-eclampsia; Translations: [Supervision of with other poor reproductive or obstetric history, unspecified trimester] 10-01-2024 Episodic Other and delivery including normal (19 sources) Single live ; Translations: [] Onset: [...] [34 weeks gestation of ] 11-27-2024 Episodic Residual codes; unclassified (2 sources) Gestation period, 36 weeks; Translations: [36 weeks gestation of ] 12-11-2024 Episodic Unclassified (1 source) CONTACT W/AND (SUSP) [...] Range Facility Urinalysis macro (dipstick) panel (U)on 12-11-2024 Bilirubin, UA Negative Negative - 4(70) +++ mg/dL [facility] Blood, UA Negative Negative - 50 Dario/mcL [facility] Clarity, UA Clear [facility] re Color, UA Yellow [facility] e Glucose, UA Negative Negative - 1999(110) ++++ mg/dL [facility] Interpretation and review of laboratory results Abnormal [facility] re Ketones, UA Negative Negative - 160(16) ++++ mg/dL [facility] Leukocytes, UA Moderate Negative - 500+++ Oksana/mcL [facility] Nitrite, UA Negative Negative - Positive [facility] pH, UA 6 5 - 9 [facility] e Protein, UA Negative Negative - 1999(20) ++++ mg/dL [facility] Spec Grav, UA 1.01 1 - 1.03 [facility] Urobilinogen, UA 0.2 0.2 - 12 mg/dL [facility] US OB BPP W NON-STRESS on 12-09-2024 [place] [address] Ultrasound Report Signed Patient: JANINA MARTEL MR#: [id number] : 1990 Acct:[id number] Age/Sex: 34 / F ADM Date: 12/09/24 Loc: US Attending Dr: Sammie Higginbotham D.O. Ordering Physician: Sammie Higginbotham D.O. Date of Service: 12/09/24 Procedure(s): US OB BPP w non-stress Accession Number(s): [id number] cc: Sammie Higginbotham D.O.; Physician,Non-Staff Mylene [place] [id number] Patient Name: JANINA MARTEL MRN: [id number]:[id number] date: 1990 Sex: F Assigned Patient Location: [facility] Current Patient Location: Accession/Order Number: [id number] Exam Date: 12/09/2024 10:50 Report Date: 12/09/2024 [...] Long M.D. 12/09/2024 10:51 AM Dictation Location: [place] [address] Electronically authenticated by: [id number] Y Date: 12/09/2024 10:51 Dictated By: Madie Long M.D. Signed By: 12/09/24 1053 DD/ 1051 TD/TT: Lock Stitch Channeler: [facility] Radiology, Radiologist, MD - 12/09/2024 [place] [address] Ultrasound Report Signed Patient: JANINA MARTEL MR#: [id number] : 1990 Acct:[id number] Age/Sex: 34 / F ADM Date: 12/09/24 Loc: US Attending Dr: Sammie Higginbotham D.O. Ordering Physician: Sammie Higginbotham D.O. Date of Service: 12/09/24 Procedure(s): US OB BPP w non-stress Accession Number(s): [id number] cc: Sammie Higginbotham D.O.; Physician,Non-Staff Mylene The [address] [address] Patient Name: JANINA MARTEL MRN: [facility]:[id number] date: 1990 Sex: F Assigned Patient Location: [facility] Current Patient Location: Accession/Order Number: [id number] Exam Date: 12/09/2024 10:50 Report Date: 12/09/2024 [...] Long M.D. 12/09/2024 10:51 AM Dictation Location: [place] [address] Electronically authenticated by: [id number] Y Date: 12/09/2024 10:51 Dictated By: Madie Long M.D. Signed By: 12/09/24 1053 DD/ 1051 TD/TT: Lock Stitch Channeler: [facility] Radiology Study observation (narrative) [facility] US OB BPP W NON-STRESS Ordered By: Radiologist Radiology on 12-09-2024 [facility] [employer] Work Phone: US OB BPP W NON-STRESS on 12-02-2024 [place] [address] Ultrasound Report Signed Patient: JANINA MARTEL MR#: [id number] : 1990 Acct:[id number] Age/Sex: 34 / F ADM Date: 12/02/24 Loc: US Attending Dr: Sammie Higginbotham D.O. Ordering Physician: Sammie Higginbotham D.O. Date of Service: 12/02/24 Procedure(s): US OB BPP w non-stress Accession Number(s): [id number] cc: Sammie Higginbotham D.O.; Physician,Non-Staff Mylene The [place] [address] Patient Name: JANINA MARTEL MRN: [id number]:[id number] date: 1990 Sex: F Assigned Patient Location: [facility] Current Patient Location: Accession/Order Number: [id number] Exam Date: 12/02/2024 11:51 Report Date: 12/02/2024 [...] Long M.D. 12/02/2024 11:52 AM Dictation Location: [place] [address] Electronically authenticated by: [id number] Y Date: 12/02/2024 11:52 Dictated By: Madie Long M.D. Signed By: 12/02/24 1154 DD/ 1152 TD/TT: Lock Stitch Channeler: [facility] Radiology, Radiologist, MD - 12/02/2024 [place] [address] Ultrasound Report Signed Patient: JANINA MARTEL MR#: [id number] : 1990 Acct:[id number] Age/Sex: 34 / F ADM Date: 12/02/24 Loc: US Attending Dr: Sammie Higginbotham D.O. Ordering Physician: Sammie Higginbotham D.O. Date of Service: 12/02/24 Procedure(s): US OB BPP w non-stress Accession Number(s): [id number] cc: Sammie Higginbotham D.O.; Physician,Non-Staff Mylene The [address] [address] Patient Name: JANINA MARTEL MRN: [facility]:[id number] date: 1990 Sex: F Assigned Patient Location: [facility] Current Patient Location: Accession/Order Number: [id number] Exam Date: 12/02/2024 11:51 Report Date: 12/02/2024 [...] in upper normal range. Total score: 8/8 US/ OB BPP w non-stress IMPRESSION: NORMAL BIOPHYSICAL PROFILE Impression dictated by: Madie Long M.D. 12/02/2024 11:52 AM Dictation Location: [place] [address] Electronically authenticated by: [id number] Y Date: 12/02/2024 11:52 Dictated By: Madie Long M.D. Signed By: 12/02/24 1154 DD/ 1152 TD/TT: Lock Stitch Channeler: [facility] [employer] Radiology Study observation (narrative) [facility] OB BPP W NON-STRESS Ordered By: Radiologist Radiology on 12-02-2024 [facility] [employer] Work Phone: Urinalysis macro (dipstick) panel (U)on 11-27-2024 Bilirubin, UA Negative Negative - 4(70) +++ mg/dL [facility] Blood, UA Negative Negative - 50 Dario/mcL [facility] [employer] Clarity, UA Clear [facility] [employer] re Color, UA Yellow [facility] Glucose, UA Negative Negative - 2000(110) ++++ mg/dL [facility] Interpretation and review of laboratory results Abnormal [facility] re Ketones, UA Negative Negative - 160(16) ++++ mg/dL [facility] Leukocytes, UA Positive Negative - 500+++ Oksana/mcL [facility] Comment on above: Moderate Nitrite, UA Negative Negative - Positive [facility] pH, UA 7 5 - 9 [facility] e Protein, UA Trace Negative - 2000(20) ++++ mg/dL [facility] Spec Grav, UA 1.015 1 - 1.03 [facility] Urobilinogen, UA 0.2 0.2 - 12 mg/dL [facility] US OB BPP W NON-STRESS on 11-25-2024 [place] [address] Ultrasound Report Signed Patient: JANINA MARTEL MR#: [id number] : 1990 Acct:[id number] Age/Sex: 34 / F ADM Date: 11/25/24 Loc: [facility] 251-[address]: Sammie Higginbotham D.O. Ordering Physician: Sammie Higginbotham D.O. Date of Service: 11/25/24 Procedure(s): US OB BPP w non-stress Accession Number(s): [id number] cc: Sammie Higginbotham D.O.; Physician,Non-Staff MKeke The [place] [address] Patient Name: JANINA MARTEL MRN: [facility]:[id number] date: 1990 Sex: F Assigned Patient Location: Current Patient Location: US Accession/Order Number: [id number] Exam Date: 11/25/2024 10:35 Report Date: 11/25/2024 [...] Long M.D. 11/25/2024 10:37 AM Dictation Location: [place] [address] Electronically authenticated by: [id number] Y Date: 11/25/2024 10:37 Dictated By: Madie Long M.D. Signed By: 11/25/24 1040 DD/ 1037 TD/TT: Lock Stitch Channeler: [facility] Radiology, Radiologist, MD - 11/25/2024 [place] [address] Ultrasound Report Signed Patient: JANINA MARTEL MR#: [id number] : 1990 Acct:[id number] Age/Sex: 34 / F ADM Date: 11/25/24 Loc: [facility] 251-[address]: Sammie Higginbotham D.O. Ordering Physician: Sammie Higginbotham D.O. Date of Service: 11/25/24 Procedure(s): US OB BPP w non-stress Accession Number(s): [id number] cc: Sammie Higginbotham D.O.; Physician,Non-Staff M[place] The [address] [address] Patient Name: JANINA MARTEL MRN: [facility]:[id number] date: 1990 Sex: F Assigned Patient Location: Current Patient Location: US Accession/Order Number: [id number] Exam Date: 11/25/2024 10:35 Report Date: 11/25/2024 10:37 At the request of: SAMMIE NEFTALY DO [...] Long M.D. 11/25/2024 10:37 AM Dictation Location: [place] [address] Electronically authenticated by: [id number] Y Date: 11/25/2024 10:37 Dictated By: Madie Long M.D. Signed By: 11/25/24 1040 DD/ 1037 TD/TT: Lock Stitch Channeler: [facility] Radiology Study observation (narrative) [facility] US OB BPP W NON-STRESS Ordered By: Radiologist Radiology on 11-25-2024 [facility] [employer] Work Phone: US OB BPP W NON-STRESS on 11-18-2024 [place] [address] Ultrasound Report Signed Patient: JANINA MARTEL MR#: [id number] : 1990 Acct:[id number] Age/Sex: 34 / F ADM Date: 11/18/24 Loc: [facility] 250-[address]: Sammie Higginbotham D.O. Ordering Physician: Sammie Higginbotham D.O. Date of Service: 11/18/24 Procedure(s): US OB BPP w non-stress Accession Number(s): [id number] cc: Sammie Higginbotham D.O.; Physician,Non-Staff Mylene The [place] [address] Patient Name: JANINA MARTEL MRN: [facility]:[id number] date: 1990 Sex: F Assigned Patient Location: [facility] Current Patient Location: [facility] Accession/Order Number: [id number] Exam Date: 11/18/2024 09:24 Report Date: 11/18/2024 [...] Long M.D. 11/18/2024 9:26 AM Dictation Location: [place] [address] Electronically authenticated by: [id number] Y Date: 11/18/2024 09:26 Dictated By: Madie Long M.D. Signed By: 11/18/24927 DD/ 5 TD/TT: Lock Stitch Channeler: [facility] Radiology, Radiologist, MD - 11/18/2024 [place] [address] Ultrasound Report Signed Patient: JANINA MARTEL MR#: [id number] : 1990 Acct:[id number] Age/Sex: 34 / F ADM Date: 11/18/24 Loc: [facility] 250-[address]: Sammie Higginbotham D.O. Ordering Physician: Sammie Higginbotham D.O. Date of Service: 11/18/24 Procedure(s): US OB BPP w non-stress Accession Number(s): [id number] cc: Sammie Higginbotham D.O.; Physician,Non-Staff Mikael.Kaylee [place] [address] Patient Name: JANINA MARTEL MRN: [facility]:[id number] date: 1990 Sex: F Assigned Patient Location: [facility] Current Patient Location: [facility] Accession/Order Number: [id number] Exam Date: 11/18/2024 09:24 Report Date: 11/18/2024 [...] Long M.D. 11/18/2024 9:26 AM Dictation Location: [place] [address] Electronically authenticated by: [id number] Y Date: 11/18/2024 09:26 Dictated By: Madie Long M.D. Signed By: 11/18/24927 DD/ 5 TD/TT: Lock Stitch Channeler: [facility] Radiology Study observation (narrative) [facility] US OB BPP W NON-STRESS Ordered By: Radiologist Radiology on 11-18-2024 [facility] Work Phone: [facility] TOTAL PROTEIN 24 HOUR UR INEon 11-13-2024 Interpretation and review of laboratory results Abnormal [facility] Protein (U) [Mass/Vol] 10.8 mg/dL NINF - 11.9 mg/dL [facility] TOTAL PROTEIN 24 HOUR URINE 302.4 High NINF [facility] TOTAL VOLUME 24 HOUR URINE 2800 mL/24hr [facility] Urinalysis macro (dipstick) panel (U)on 11-13-2024 Bilirubin, UA Negative Negative - 4(70) +++ mg/dL [facility] Blood, UA Negative Negative - 50 Dario/mcL [facility] Clarity, UA Clear [facility] [employer] re Color, UA Yellow [facility] Glucose, UA Negative Negative - 1999(110) ++++ mg/dL [facility] Interpretation and review of laboratory results Abnormal [facility] Ketones, UA Positive Negative - 160(16) ++++ mg/dL [facility] Comment on above: 40 Leukocytes, UA Trace Negative - 500+++ Oksana/mcL [facility] Nitrite, UA Negative Negative - Positive [facility] pH, UA 6.5 5 - 9 [facility] Protein, UA Negative Negative - 1999(20) ++++ mg/dL [facility] Spec Grav, UA 1.005 1 - 1.03 [facility] Urobilinogen, UA 0.2 0.2 - 12 mg/dL [facility] US OB BPP W NON-STRESS on 11-12-2024 [place] [address] Ultrasound Report Signed Patient: JANINA MARTEL MR#: [id number] : 1990 Acct:[id number] Age/Sex: 34 / F ADM Date: 11/12/24 Loc: [facility] 254-[address]: Sammie Higginbotham D.O. Ordering Physician: Sammie Higginbotham D.O. Date of Service: 11/12/24 Procedure(s): US OB BPP w non-stress Accession Number(s): [id number] cc: Sammie Higginbotham D.O.; Physician,Non-Staff Mylene The [address] [address] Patient Name: JANINA MARTEL MRN: [facility]:[id number] date: 1990 Sex: F Assigned Patient Location: [facility] Current Patient Location: [facility] Accession/Order Number: [id number] Exam Date: 11/12/2024 12:13 Report Date: 11/12/2024 [...] Long M.D. 11/12/2024 12:14 PM Dictation Location: [place] [address] Electronically authenticated by: [id number] Y Date: 11/12/2024 12:14 Dictated By: Madie Long M.D. Signed By: 11/12/24 1217 DD/ 1214 TD/TT: Lock Stitch Channeler: [facility] Radiology, Radiologist, - 11/12/[address] [address] Ultrasound Report Signed Patient: JANINA MARTEL MR#: [id number] : 1990 Acct:[id number] Age/Sex: 34 / F ADM Date: 11/12/24 Loc: [facility] 254-[address]: Sammie Higginbotham D.O. Ordering Physician: Sammie Higginbotham D.O. Date of Service: 11/12/24 Procedure(s): US OB BPP w non-stress Accession Number(s): [id number] cc: Sammie Higginbotham D.O.; Physician,Non-Staff Mylene The [place] [address] Patient Name: JANINA MARTEL MRN: [facility]:[id number] date: 1990 Sex: F Assigned Patient Location: [facility] Current Patient Location: [facility] Accession/Order Number: [id number] Exam Date: 11/12/2024 12:13 Report Date: 11/12/2024 [...] Long M.D. 11/12/2024 12:14 PM Dictation Location: [place] [address] Electronically authenticated by: [id number] Y Date: 11/12/2024 12:14 Dictated By: Madie Long M.D. Signed By: 11/12/24 1217 DD/ 1214 TD/TT: Lock Stitch Channeler: [facility] Radiology Study observation (narrative) [facility] US OB BPP W NON-STRESS Ordered By: Radiologist Radiology on 11-12-2024 [facility] [employer] Work Phone: US OB FOLLOW UP [...] II, MD, PHD at 30-Oct-2024 11:19:03 PM [facility] Normal Not Available Comment on above: Order Comment: US OB SCAN FOR GROWTH Estimated Date of Delivery: 01/06/25 Gestational Age as of 10/01/2024: 26w1d Urinalysis macro (dipstick) panel (U)on 10-30-2024 Bilirubin, UA Negative Negative - 4(70) +++ mg/dL [facility] Blood, UA Negative Negative - 50 Dario/mcL [facility] Clarity, UA Clear [facility] Color, UA Yellow [facility] Glucose, UA Negative Negative - 1999(110) ++++ mg/dL [facility] Interpretation and review of laboratory results Abnormal [facility] Ketones, UA Negative Negative - 160(16) ++++ mg/dL [facility] Leukocytes, UA Positive Negative - 500+++ Oksana/mcL [facility] Comment on above: small Nitrite, UA Negative Negative - Positive [facility] pH, UA 7 5 - 9 [facility] Protein, UA Negative Negative - 1999(20) ++++ mg/dL [facility] Spec Grav, UA 1.01 1 - 1.03 [facility] Urobilinogen, UA 0.2 0.2 - 12 [facility] Urinalysis macro (dipstick) panel (U)on 09-02-2024 Bilirubin, UA Negative Negative - 4(70) +++ mg/dL [facility] Blood, UA Negative Negative - 50 Dario/mcL [facility] Clarity, UA Clear [facility] Color, UA Yellow [facility] Glucose, UA Negative Negative - 1999(110) ++++ mg/dL [facility] Interpretation and review of laboratory results Abnormal [facility] Ketones, UA Negative Negative - 160(16) ++++ mg/dL [facility] Leukocytes, UA Positive Negative - 500+++ Oksana/mcL [facility] Comment on above: Large Nitrite, UA Negative Negative - Positive [facility] pH, UA 7 5 - 9 [facility] Protein, UA Negative Negative - 1999(20) ++++ mg/dL [facility] Spec Grav, UA 1.01 1 - 1.03 [facility] Urobilinogen, UA 0.2 0.2 - 12 mg/dL [facility] OB 14+ [...] II, MD, PHD at 22-Aug-2024 08:46:17 AM [employer] [employer] Normal Not Available Comment on above: Order Comment: US OB ANATOMY SINGLE W US OB CERVICAL LENGTH Estimated Date of Delivery: 01/06/25 Gestational Age as of 08/05/2024: 18w0d IGP,APTIMA HPV,AGE GDLNon AGE GDLN ACOG TESTING Note . [facility] Comment on above: TESTS RESULT FLAG U NITS REF RANGE LAB Clinician Provided Cytology Information Source.............Cervix Other.............. No. of containers..01 ThinPrep Vial Age Tawanda GRECO Maria Antonia... 30-65 FLAG LEGEND: L-Low Normal,H-High Normal,LL-Alert Low,HH-Alert High <-Panic Low,>-Panic High,A-Abnormal,AA-Critical Abnormal Performed at: 01 =G [address] [place] [address] Asha Garza MD, HPV APTIMA Negative Negative [facility] e Comment on above: This nucleic acid am plification test detects fourteen high- risk HPV types (16,18,31,33,35,39,45,51,52,56,58,59,66,68) without differentiation. Performed at: =G - [facility] [id number] Recreational Therapy Technician: Asha Garza MD, Phone: [phone] Performed at: - [address] [id number] Recreational Therapy Technician: Asha Garza MD, Phone: [phone] IGP, APTIMA HPV, RFX 16/18,45 Note . [facility] Comment on above: TESTS RESULT FLAG UN ITS REF RANGE LAB DIAGNOSIS: 02 NEGATIVE FOR INTRAEPITHELIAL LESION OR MALIGNANCY. Specimen adequacy: 02 Satisfactory for evaluation. Endocervical and/or squamous metaplastic cells (endocervical component) are present. Performed by: 02 Jojo Pablo Shape Hand (ASCP) . 02 Note: Note 02 The [...] <-Panic Low,>-Panic High,A-Abnormal,AA-Critical Abnormal Performed at: [address] [address] Asha Garza MD, SPATULA-ALONE CERVIX [facility] RECURRENT VAGINITIS (HTRX)on 08-07-2024 ATOPOBIUM VAGINAE 0 [facility] ATOPOBIUM VAGINAE Not detected [facility] BVAB 2,3 (BACTERIAL VAGINOSIS ASSOCIATED BACTERIA 2, 3); MOBILUNCUS SPP 0 [facility] BVAB 2,3 (BACTERIAL VAGINOSIS ASSOCIATED BACTERIA 2, 3); MOBILUNCUS SPP Not detected [facility] ELODIA ALBICANS, PARAPSILOSIS, TROPICALIS 0 [facility] ELODIA ALBICANS, PARAPSILOSIS, TROPICALIS Not detected [facility] ELODIA GLABRATA 0 [facility] ELODIA GLABRATA Not detected [facility] ELODIA KRUSEI 0 [facility] ELODIA KRUSEI Not detected [facility] CHLAMYDIA TRACHOMATIS 0 [facility] CHLAMYDIA TRACHOMATIS Not [facility] GARDNERELLA VAGINALIS 0 [facility] GARDNERELLA VAGINALIS Not detected [facility] MEGASPHAERA (TYPES 1, 2) 0 [facility] MEGASPHAERA (TYPES 1, 2) Not detected [facility] MYCOPLASMA GENITALIUM 0 [facility] MYCOPLASMA GENITALIUM Not detected [facility] NEISSERIA GONORRHOEAE 0 [facility] NEISSERIA GONORRHOEAE Not detected [facility] TRICHOMONAS VAGINALIS 0 [facility] TRICHOMONAS VAGINALIS Not detected [facility] GLUCOSE TOLERANCE 3 HOURon 0 08-03-2024 GLUCOSE TOLERANCE 3 HOUR mg/dL [facility] Comment on above: GLU FAST 94 (<95) Co l: 08/03/24 0809 GLU 1HR 163 (<180) Col: 08/03/24 0912 GLU 2HR 114 (<155) Col: 08/03/24 1012 GLU 3HR 109 (<140) Col: 08/03/24 1112 [facility] GLUCOSE 1 HOURon 07-27-2024 Glucose [Mass/Vol] 151 mg/dL High NINF - 13 0 mg/dL [facility] Interpretation and review of laboratory results Abnormal [facility] ALL CBC WITH AUTO DIFFon BASOPHILS ABSOLUTE AUTO 0 [facility] Basophils/100 WBC (Bld) 0.3 % 0.2 - 2.0 % [facility] Eosinophils/100 WBC (Bld) 0.2 % Low 0.9 - 7.0 % [facility] Erythrocyte distribution width (RBC) [Ratio] 13.5 % 11.0 - 15.0 % [facility] Hematocrit (Bld) [Volume fraction] 36 % 36.0 - 48.0 % [facility] Healthcar e Hemoglobin (Bld) [Mass/Vol] 12.5 g/dL 12.0 - 16.0 g/dL [facility] IMMATURE GRANULOCYTES ABS AUTO 0.05 High [facility] Immature granulocytes/100 WBC (Bld) 0.4 % 0.0 - 0.5 % [facility] Interpretation and review of laboratory results Abnormal [facility] Healthca re LYMPHOCYTES ABSOLUTE AUTO 2.1 [facility] Lymphocytes/100 WBC (Bld) 16 % Low 20.5 - 60.0 % [facility] MCH (RBC) [Entitic mass] 30.1 pg 26.7 - 34.0 pg [facility] MCHC (RBC) [Mass/Vol] 34.7 g/dL 29.9 - 35.2 g/dL [facility] MCV (RBC) [Entitic vol] 86.7 fL 81.0 - 99.0 fL [facility] MONOCYTES ABSOLUTE AUTO 0.9 High [facility] Monocytes/100 WBC (Bld) 6.6 % 1.7 - 12.0 % [facility] NEUTROPHILS ABSOLUTE AUTO 9.9 High [facility] Neutrophils/100 WBC (Bld) 76.5 % High 43.0 - 75.0 % [facility] Platelet mean volume (Bld) [Entitic vol] 10.7 fL 9.5 - 13.5 fL [facility] TBH EO # 0 [facility] Healthcar e TBH PLT 276 [facility] TB RBC 4.15 Low [facility] TBH WBC 12.9 High [facility] e [facility] Health[facility] e HCG ( test) Ql (U)o n 06-07-2024 Interpretation and review of laboratory results Abnormal [facility] re Preg Test, Ur Positive Negative [facility] US OB TRANSVAGINALon 025 US [...] x 4.7 cm (8 weeks, 3 days). [place] rump length is 2.5 cm (9 weeks, [...] UA Negative Negative - 4(70) +++ mg/dL [facility] Blood, UA Negative Negative - 50 Dario/mcL [facility] Clarity, UA Clear [facility] [employer]-Sense[employer] re Color, UA Yellow [facility] VeriShow e Glucose, UA Negative Negative - 1999(110) ++++ mg/dL [facility] Interpretation and review of laboratory results Normal [facility] [employer] re Ketones, UA Negative Negative - 160(16) ++++ mg/dL [facility] Leukocytes, UA Negative Negative - 500+++ Oksana/mcL [facility] Nitrite, UA Negative Negative - Positive [facility] pH, UA 5.5 5 - 9 [facility] [employer] Protein, UA Negative Negative - 1999(20) ++++ mg/dL [facility] Spec Grav, UA 1.015 1 - 1.03 [facility] Urobilinogen, UA 0.2 0.2 - 12 mg/dL [facility] HealthArtBinder e TBH PREG QUANT HCGon 024 HCG QUANTITATIVE <1 mIU/mL [facility] Comment on above: 5-50 0.2-1 WEEK 50-500 1-2 WEEKS 100-5,000 2-3 WEEKS 500-10,000 3-4 WEEKS 1,000-50,000 4-5 WEEKS 10,000-100,000 5-6 WEEKS 15,000-200,000 6-8 WEEKS 10,000-100,000 2-3 MONTHS [facility] TBH PREG QUANT HCGon 10-25-2 024 HCG QUANTITATIVE 15 mIU/mL [facility] ltare Comment on above: 5-50 0.2-1 WEEK 50-500 1-2 WEEKS 100-5,000 2-3 WEEKS 500-10,000 3-4 WEEKS 1,000-50,000 4-5 WEEKS 10,000-100,000 5-6 WEEKS 15,000-200,000 6-8 WEEKS 10,000-100,000 2-3 MONTHS [facility] TB PREG QUANT HCGon -21-2 024 HCG QUANTITATIVE 22 mIU/mL [facility] Comment on above: 5-50 0.2-1 WEEK 50-500 1-2 WEEKS 100-5,000 2-3 WEEKS 500-10,000 3-4 WEEKS 1,000-50,000 4-5 WEEKS 10,000-100,000 5-6 WEEKS 15,000-200,000 6-8 WEEKS 10,000-100,000 2[facility] TB PREG QUANT HCGon 10-19-2 024 HCG QUANTITATIVE 32 mIU/mL [facility] ltare Comment on above: 5-50 0.2-1 WEEK 50-500 1-2 WEEKS 100-5,000 2-3 WEEKS 500-10,000 3-4 WEEKS 1,000-50,000 4-5 WEEKS 10,000-100,000 5-6 WEEKS 15,000-200,000 6-8 WEEKS 10,000-100,000 2-3 MONTHS [facility] Health[facility] e PAP ACOG PANEL 2: 21 to 29on 09-22-2021 . . Normal [facility] Comment on above: Performed By: #### [id number] #### [facility] [address] [address] [address] Yariel Huynh Age Gdln ACOG Testing 23- Normal [facility] Comment on above: Performed By: #### [id number] #### [facility] [address] [place] [address] Dr. Yariel Huynh DIAGNOSIS: Comment Normal [facility] Comment on above: Result Comment: NEGA TIVE FOR INTRAEPITHELIAL LESION OR MALIGNANCY. Performed By: #### [id number] #### [facility] [address] [place] [address] Dr. Yariel Huynh Methodology: Comment Normal [facility] Comment on above: Result Comment: This liquid based ThinPrep(R) pap test was screened with the use of an image guided system. Performed By: #### 4 [id number] #### [facility] [address] [place] [address] Dr. Yariel Huynh Note: Comment Normal [facility] Comment on above: Result Comment: The Pap smear is a screening test designed to aid in the detection of premalignant and malignant conditions of the uterine cervix. It is not a diagnostic procedure and should not be used as the sole means of detecting cervical cancer. Both false-positive and false-negative reports do occur. . Performed By: #### [id number] #### [facility] [address] [place] [address] Dr. Yariel Huynh Performed by: Comment Normal [facility] Comment on above: Result Comment: Carole Lee, Shape Hand (ASCP) Performed By: #### [id number] #### [facility] [address] [place] [address] Dr. Yariel Huynh Reflex Criteria: Comment Normal [facility] Comment on above: Result Comment: The HPV DNA reflex criteria were not met with this specimen result therefore, no HPV testing was performed. . Performed By: #### 4 [id number] #### [facility] [address] [place] [address] Dr. Yariel Huynh Specimen adequacy: Comment Normal [facility] Comment on above: Result Comment: Sati sfactory for evaluation. Endocervical and/or squamous metaplastic cells (endocervical component) are present. Performed By: #### 4 [id number] #### [facility] [address] [place] [address] Dr. Yariel Huynh RUBELLA AB IGGon 07-08-2021 Rubella Antibodies, IgG 1.46 index Normal Immune >0.[address] [facility] Comment on above: Result Comment: Non- immune <0.90 Equivocal 0.90 - 0.99 Immune >0.99 Performed By: #### R [id number] #### [facility] [address] [place] [address] Clyde Ramachandran CBC AUTO DIFFon 12-09-2020 BASO # 0.1 103/ul Normal 0.0-0.[address] [facility] Comment on above: Performed By: #### 4 [id number] #### [facility] [address] [place] [address] Dr. Yariel Huynh Basophils/100 WBC (Bld) 0.3 % Normal 0.2-2.[address] [facility] Comment on above: Performed By: #### 4 [id number] #### [facility] [address] [place] [address] Dr. Yariel Huynh EO # 0.0 103/ul Normal 0.0-0.[address] [facility] Comment on above: Performed By: #### 4 [id number] #### [facility] [address] [place] [address] Dr. Yariel Huynh Eosinophils/100 WBC (Bld) 0.1 % Critically low 0.9-7.[address] [facility] Comment on above: Performed By: #### [id number] #### [facility] [address] [place] [address] Dr. Yariel Huynh Erythrocyte distribution width (RBC) [Ratio] 13.9 % Normal 11.0-15.[address] [facility] Comment on above: Performed By: #### 4 [id number] #### [facility] [address] [place] [address] Dr. Yariel Huynh Hematocrit (Bld) [Volume fraction] 29.5 % Critically low 36.0-48.[address] [facility] Comment on above: Performed By: #### 4 [id number] #### [facility] [address] [place] [address] Dr. Yariel Huynh Hemoglobin (Bld) [Mass/Vol] 9.3 g/dL Critically low 12.0-16.0 [facility] Comment on above: Performed By: #### 4 [id number] #### [facility] [address] [address] [address] Yariel Huynh IG # 0.08 10e3/ul Critically high 0.00-0.03 [facility] Comment on above: Performed By: #### 4 [id number] #### [facility] [address] [address] [address] Yariel Huynh IG % 0.5 % Normal 0.0-0.[address] [facility] Comment on above: Performed By: #### 4 [id number] #### [facility] [address] [address] [address] Yariel Huynh LYMPH # 1.7 103/ul Normal 1.2-3.[address] [facility] Comment on above: Performed By: #### 4 [id number] #### [facility] [address] [address] [address] Yariel Huynh Lymphocytes/100 WBC (Bld) 10.8 % Critically low 20.5-60.[address] [facility] Comment on above: Performed By: #### 4 [id number] #### [facility] [address] [address] [address] Yariel Huynh MANUAL DIFF REQ NO Normal [facility] Comment on above: Performed By: #### 4 [id number] #### [facility] [address] [address] [address] Yariel Huynh MCH (RBC) [Entitic mass] 26.2 pg Critically low 26.7-34.[address] [facility] Comment on above: Performed By: #### 4 [id number] #### [facility] [address] [address] [address] Yariel Huynh MCHC (RBC) [Mass/Vol] 31.5 g/dL Normal 29.9-35.[address] [facility] Comment on above: Performed By: #### 4 [id number] #### [facility] [address] [address] [address] Yariel Huynh MCV (RBC) [Entitic vol] 83.1 fL Normal 81.0-99.[address] [facility] Comment on above: Performed By: #### 4 [id number] #### [facility] [address] [place] [address] Dr. Yariel Huynh MONO # 0.8 103/ul Normal 0.3-0.[address] [facility] Comment on above: Performed By: #### 4 [id number] #### [facility] [address] [place] [address] Dr. Yariel Huynh Monocytes/100 WBC (Bld) 5.2 % Normal 1.7-12.[address] [facility] Comment on above: Performed By: #### 4 [id number] #### [facility] [address] [place] [address] Dr. Yariel Huynh NEUT # 12.8 103/ul Critically high 1.4-6.5 [facility] Comment on above: Performed By: #### 4 [id number] #### [facility] [address] [place] [address] Dr. Yariel Huynh Neutrophils/100 WBC (Bld) 83.1 % Critically high 43.0-75.[address] [facility] Comment on above: Performed By: #### 4 [id number] #### [facility] [address] [place] [address] Dr. Yariel Huynh Platelet mean volume (Bld) [Entitic vol] 12.6 fL Normal 9.5-13.[address] [facility] Comment on above: Performed By: #### 4 [id number] #### [facility] [address] [place] [address] Dr. Yariel Huynh PLT 203 103/ul Normal 150-450 [facility] Comment on above: Performed By: #### 4 [id number] #### [facility] [address] [place] [address] Dr. Yariel Huynh RBC 3.55 106/ul Critically low 4.20-5.40 [facility] Comment on above: Performed By: #### 4 [id number] #### [facility] [address] [place] [address] Dr. Yariel Huynh WBC 15.4 103/ul Critically high 4.0-11.0 [facility] Comment on above: Performed By: #### 4 [id number] #### [facility] [address] [place] [address] Dr. Yariel Huynh ASYMPTOMATIC COVID-19 ANTIGE Non 12-08-2020 EUA Statement SEE BELOW Normal [facility] Comment on above: Result Comment: This test [...] is revoked sooner. Performed By: #### 4 [id number] #### [facility] [address] [place] [address] Dr. Yariel Huynh SARS-CoV-2 (COVID-19) RNA ESTEBAN+probe Ql (Unsp spec) Negative Normal NEGATIVE [facility] Comment on above: Result Comment: Nega tive results are presumptive. They do not preclude infection and should not be used as the sole basis for treatment decisions. Additional confirmatory testing by a molecular method should be considered. Performed By: #### 4 [id number] #### [facility] [address] [place] [address] Dr. Yariel Huynh BUNon 12-08-2020 Urea nitrogen [Mass/Vol] 15.0 mg/dL Normal 7.0-17.[address] [facility] Comment on above: Performed By: #### 4 [id number] #### [facility] [address] [place] [address] Dr. Yariel Huynh CBC AUTO DIFFon 12-08-2020 BASO # 0.0 103/ul Normal 0.0-0.[address] [facility] Comment on above: Performed By: #### 4 [id number] #### [facility] [address] [place] [address] Dr. Yariel Huynh Basophils/100 WBC (Bld) 0.3 % Normal 0.2-2.[address] [facility] Comment on above: Performed By: #### 4 [id number] #### [facility] [address] [place] [address] Dr. Yraiel Huynh EO # 0.0 103/ul Normal 0.0-0.[address] [facility] Comment on above: Performed By: #### 4 [id number] #### [facility] [address] [place] [address] Dr. Yariel Huynh Eosinophils/100 WBC (Bld) 0.4 % Critically low 0.9-7.[address] [facility] Comment on above: Performed By: #### 4 [id number] #### [facility] [address] [place] [address] Dr. Yariel Huynh Erythrocyte distribution width (RBC) [Ratio] 13.8 % Normal 11.0-15.[address] [facility] Comment on above: Performed By: #### 4 [id number] #### [facility] [address] [place] [address] Dr. Yariel Huynh Hematocrit (Bld) [Volume fraction] 31.8 % Critically low 36.0-48.[address] [facility] Comment on above: Performed By: #### 4 [id number] #### [facility] [address] [place] [address] Dr. Yariel Huynh Hemoglobin (Bld) [Mass/Vol] 10.1 g/dL Critically low 12.0-16.[address] [facility] Comment on above: Performed By: #### 4 [id number] #### [facility] [address] [place] [address] Dr. Yariel Huynh IG # 0.07 10e3/ul Critically high 0.00-0.03 [facility] Comment on above: Performed By: #### 4 [id number] #### [facility] [address] [place] [address] Dr. Yariel Huynh IG % 0.7 % Critically high 0.0-0.5 [facility] Comment on above: Performed By: #### 4 [id number] #### [facility] [address] [place] [address] Dr. Yariel Huynh LYMPH # 2.3 103/ul Normal 1.2-3.[address] [facility] Comment on above: Performed By: #### 4 [id number] #### [facility] [address] [place] [address] Dr. Yariel Huynh Lymphocytes/100 WBC (Bld) 22.7 % Normal 20.5-60.[address] [facility] Comment on above: Performed By: #### 4 [id number] #### [facility] [address] [place] [address] Dr. Yariel Huynh MANUAL DIFF REQ NO Normal [facility] Comment on above: Performed By: #### 4 [id number] #### [facility] [address] [place] [address] Dr. Yariel Huynh MCH (RBC) [Entitic mass] 26.7 pg Normal 26.7-34.[address] [facility] Comment on above: Performed By: #### 4 [id number] #### [facility] [address] [place] [address] Dr. Yariel Huynh MCHC (RBC) [Mass/Vol] 31.8 g/dL Normal 29.9-35.[address] [facility] Comment on above: Performed By: #### 4 [id number] #### [facility] [address] [place] [address] Dr. Yariel Huynh MCV (RBC) [Entitic vol] 84.1 fL Normal 81.0-99.[address] [facility] Comment on above: Performed By: #### 4 [id number] #### [facility] [address] [place] [address] Dr. Yariel Huynh MONO # 0.6 103/ul Normal 0.3-0.[address] [facility] Comment on above: Performed By: #### 4 [id number] #### [facility] [address] [place] [address] Dr. Yariel Huynh Monocytes/100 WBC (Bld) 6.3 % Normal 1.7-12.[address] [facility] Comment on above: Performed By: #### 4 [id number] #### [facility] [address] [place] [address] Dr. Yariel Huynh NEUT # 7.0 103/ul Critically high 1.4-6.5 [facility] Comment on above: Performed By: #### 4 [id number] #### [facility] [address] [place] [address] Dr. Yariel Huynh Neutrophils/100 WBC (Bld) 69.6 % Normal 43.0-75.0 [facility] Comment on above: Performed By: #### 4 [id number] #### [facility] [address] [place] [address] Dr. Yariel Huynh Platelet mean volume (Bld) [Entitic vol] 12.9 fL Normal 9.5-13.[address] [facility] Comment on above: Performed By: #### 4 [id number] #### [facility] [address] [place] [address] Dr. Yariel Huynh PLT 193 103/ul Normal 150-450 [facility] Comment on above: Performed By: #### 4 [id number] #### [facility] [address] [place] [address] Dr. Yariel Huynh RBC 3.78 106/ul Critically low 4.20-5.40 [facility] Comment on above: Performed By: #### 4 [id number] #### [facility] [address] [place] [address] Dr. Yariel Huynh WBC 10.1 103/ul Normal 4.0-11.0 [facility] Comment on above: Performed By: #### 4 [id number] #### [facility] [address] [place] [address] Dr. Yariel Huynh CREATININEon 12-08-2020 Creatinine [Mass/Vol] 0.80 mg/dL Normal 0.52-1.[address] [facility] Comment on above: Performed By: #### L DH, URIC, AST, ALT, BUN, CREA #### [facility] [address] [place] [address] Clyde Ramachandran EGFR-AF BELGIAN >60 Normal >=60 [facility] Comment on above: Performed By: #### L DH, URIC, AST, ALT, BUN, CREA #### [facility] [address] [place] [address] Clyde Ramachandran EGFR-NON AF BELGIAN >60 Normal >=[address] [facility] Comment on above: Performed By: #### L DH, URIC, AST, ALT, BUN, CREA #### [facility] [address] [place] [address] Clyde Ramachandran DRUG SCREEN RAPID (URINE)on 12-08-2020 AMP Negative Normal NEGATIVE [facility] Comment on above: Performed By: #### 4 [id number] #### [facility] [address] [place] [address] Dr. Yariel Huynh BAR Negative Normal NEGATIVE [facility] Comment on above: Performed By: #### 4 [id number] #### [facility] [address] [place] [address] Dr. Yariel Huynh BUP Negative Normal NEGATIVE [facility] Comment on above: Performed By: #### 4 [id number] #### [facility] [address] [place] [address] Dr. Yariel Huynh BZO Negative Normal NEGATIVE [facility] Comment on above: Performed By: #### 4 [id number] #### [facility] [address] [place] [address] Dr. Yariel Huynh ROSA Negative Normal NEGATIVE [facility] Comment on above: Performed By: #### 4 [id number] #### [facility] [address] [place] [address] Dr. Yariel Huynh CUT-OFFS SEE BELOW Normal [facility] Comment on above: Result Comment: AMP (Amphetamine): 500ng/mL, BAR (Barbituates): 200 ng/mL, BZO (Benzodiazepines): 150 ng/mL, BUP (Buprenorphine): 10 ng/mL, ROSA (Cocaine): 150 ng/mL, mAMP (Methamphetamine): 500 ng/mL, MTD (Methadone): 200 ng/mL, OPI (Opiates): 100 ng/mL, OXY (Oxycodone): 100 ng/mL, PCP (Phencyclidine): 25 ng/mL, PPX (Propoxyphene): 300 ng/mL, THC (Cannabinoids): 50 ng/mL, TCA (Trycyclic Antidepressants): 300 ng/mL Performed By: #### 4 [id number] #### [facility] [address] [place] [address] Dr. Yariel Huynh DRUG CUT HEADER DRUG CLASS TEST SYSTEM CUT-OFF CONCENTRATIONS ARE FOLLOWS: Normal [facility] Comment on above: Performed By: #### 4 [id number] #### [facility] [address] [place] [address] Dr. Yariel Huynh mAMP Negative Normal NEGATIVE [facility] Comment on above: Performed By: #### 4 [id number] #### [facility] [address] [place] [address] Dr. Yariel Huynh MTD Negative Normal NEGATIVE [facility] Comment on above: Performed By: #### 4 [id number] #### [facility] [address] [place] [address] Dr. Yariel Huynh OPI Negative Normal NEGATIVE [facility] Comment on above: Performed By: #### 4 [id number] #### [facility] [address] [place] [address] Dr. Yariel Huynh OXY Negative Normal NEGATIVE [facility] Comment on above: Performed By: #### 4 [id number] #### [facility] [address] [place] [address] Dr. Yariel Huynh PCP Negative Normal NEGATIVE [facility] Comment on above: Performed By: #### 4 [id number] #### [facility] [address] [place] [address] Dr. Yariel Huynh PPX Negative Normal NEGATIVE [facility] Comment on above: Performed By: #### 4 [id number] #### [facility] [address] [place] [address] Dr. Yariel Huynh TCA Negative Normal NEGATIVE [facility] Comment on above: Performed By: #### 4 [id number] #### [facility] [address] [place] [address] Dr. Yariel Huynh THC Negative Normal NEGATIVE [facility] Comment on above: Performed By: #### 4 [id number] #### [facility] [address] [place] [address] Dr. Yariel Huynh LDHon 12-08-2020 LDH 163 U/L Normal 122-[address] [facility] Comment on above: Performed By: #### L DH, URIC, AST, ALT, BUN, CREA #### [facility] [address] [place] [address] Clyde Madie SGOTon 12-08-2020 AST [Catalytic activity/Vol] 15 U/L Normal 14-[address] [facility] Comment on above: Performed By: #### L DH, URIC, AST, ALT, BUN, CREA #### [facility] [address] [place] [address] Clydejustyn Ramachandran SGPTon 12-08-2020 ALT [Catalytic activity/Vol] 12 U/L Normal 9-[address] [facility] Comment on above: Performed By: #### L DH, URIC, AST, ALT, BUN, CREA #### [facility] [address] [place] [address] Clyde Madie TYPE AND SCREENon 12-08-2020 TYPE AND SCREEN Negative Normal [facility] Comment on above: Performed By: #### T NS #### [facility] [address] [place] [address] Clyde Ramachandran URIC ACID SERUMon 12-08-2020 Urate [Mass/Vol] 5.0 mg/dL Normal 2.5-6.2 [facility] Comment on above: Performed By: #### L DH, URIC, AST, ALT, BUN, CREA #### [facility] [address] [place] [address] Clyde Madie US PREG BIOPHY W NON [...] by: POLLO PABLO Date: 2020-12-08 08:[address] [facility] US PREG BIOPHY W NON STRESSo [...] by: SCOTT CORTES Date: 2020-12-01 10:[address] [facility] Vital Signs Date Time Vital Sign Value Performing Clinician Roxann torres 12-11-2024 11:20-0400 Body weight 80.65 kg Sammie Neftaly DO Work Phone: [facility] 12-11-2024 11:20-0400 Diastolic blood pressure 82 mm[Hg] Sammie Neftaly DO Work Phone: [facility] 12-11-2024 11:20-0400 Systolic blood pressure 130 mm[Hg] Sammie Neftaly DO Work Phone: [facility] 11-27-2024 11:41-0400 Body weight 78.47 kg Sammie Neftaly DO Work Phone: [facility] 11-27-2024 11:41-0400 Diastolic blood pressure 86 mm[Hg] Sammie Neftaly DO Work Phone: [facility] 11-27-2024 11:41-0400 Systolic blood pressure 140 mm[Hg] Sammie Neftaly DO Work Phone: [facility] 11-13-2024 10:28-0400 Body weight 78.65 kg Diya GEE Work Phone: [facility] 11-13-2024 10:28-0400 Diastolic blood pressure 78 mm[Hg] Diya GEE Work Phone: [facility] 11-13-2024 10:28-0400 Systolic blood pressure 130 mm[Hg] Diya GEE Work Phone: [facility] 10-30-2024 10:31-0400 Body weight 78.53 kg Sammie Neftaly DO Work Phone: [facility] 10-30-2024 10:31-0400 Diastolic blood pressure 78 mm[Hg] Sammie Neftaly DO Work Phone: [facility] 10-30-2024 10:31-0400 Systolic blood pressure 120 mm[Hg] Sammie Neftaly DO Work Phone: [facility] 10-01-2024 09:38-0400 Body weight 75.48 kg Lin Sellers MEAT SALES AND STORAGE MANAGER Work Phone: [facility] 10-01-2024 09:38-0400 Diastolic blood pressure 76 mm[Hg] Lin Sellers MEAT SALES AND STORAGE MANAGER Work Phone: [facility] 10-01-2024 09:38-0400 Systolic blood pressure 120 mm[Hg] Lin Sellers MEAT SALES AND STORAGE MANAGER Work Phone: [facility] 09-02-2024 09:46-0400 Body weight 71.85 kg Sammie Neftaly DO Work Phone: [facility] 09-02-2024 09:46-0400 Diastolic blood pressure 82 mm[Hg] Sammie Neftaly DO Work Phone: [facility] 09-02-2024 09:46-0400 Systolic blood pressure 122 mm[Hg] Sammie Neftaly DO Work Phone: [facility] 08-05-2024 09:52-0500 Body weight 68.49 kg Diya GEE Work Phone: [facility] 08-05-2024 09:52-0500 Diastolic blood pressure 78 mm[Hg] Diya GEE Work Phone: [facility] 08-05-2024 09:52-0500 Systolic blood pressure 124 mm[Hg] Diya GEE Work Phone: [facility] 07-08-2024 09:52-0500 Body weight 67.31 kg Sammie Neftaly DO Work Phone: [facility] 07-08-2024 09:52-0500 Diastolic blood pressure 70 mm[Hg] Sammie Neftaly DO Work Phone: [facility] 07-08-2024 09:52-0500 Systolic blood pressure 118 mm[Hg] Sammie Neftaly DO Work Phone: [facility] 06-07-2024 09:47-0500 Body weight 66.22 kg Noms Nurse [facility] 06-07-2024 09:47-0500 Diastolic blood pressure 72 mm[Hg] Noms Nurse [facility] 06-07-2024 09:47-0500 Systolic blood pressure 122 mm[Hg] Noms Nurse [facility] Encounters Encounter Date Encounter Type Care Provider Facility Start: 12-11-2024 End: 12-11-2024 Bamboo flowsheet Sammie Neftaly DO Work Phone: [facility] Start: 12-11-2024 End: 12-11-2024 Bamboo flowsheet Sammie Neftaly DO Work Phone: [facility] Start: 12-11-2024 End: 12-11-2024 Office outpatient visit 15 minutes Sammie Neftaly DO Work Phone: [facility] Comment on above: 36 weeks gestation o f ([facility]); Third trimester ([facility]); Hypertension affecting in third trimester ([facility]); Gestational diabetes mellitus (GDM), antepartum, gestational diabetes method of control unspecified ([facility]); H/O pre-eclampsia in prior , currently ([facility]) Start: 12-11-2024 End: 12-11-2024 ambulatory SAMMIE NEFTALY Not Available Start: 12-09-2024 End: 12-09-2024 Clinisync Result Encounter [...] Start: 11-27-2024 End: 11-27-2024 Bamboo flowsheet Sammie Nfetaly DO Work Phone: [facility] Start: 11-27-2024 End: 11-27-2024 Office outpatient visit 15 minutes Sammie Neftaly DO Work Phone: [facility] Comment on above: Third trimester preg champ ([facility]); 34 weeks gestation of ([facility]); Hypertension affecting in third trimester ([facility]); Gestational diabetes mellitus (GDM), antepartum, gestational diabetes method of control unspecified ([facility]); H/O pre-eclampsia in prior , currently ([facility]) Start: 11-27-2024 End: 11-27-2024 ambulatory SAMMIE NEFTALY [...] Start: 10-01-2024 End: 10-01-2024 Bamboo flowsheet Lin Mirandaly MEAT SALES AND STORAGE MANAGER Work Phone: [facility] Start: 10-01-2024 End: 10-01-2024 Bamboo flowsheet Lin Mirandaly MEAT SALES AND STORAGE MANAGER Work Phone: [facility] Start: 10-01-2024 End: 10-01-2024 Office outpatient visit 15 minutes Lin Sellers MEAT SALES AND STORAGE MANAGER Work Phone: [facility] Comment on [...] Patient encounter procedure Diya GEE Work Phone: [facility] Start: 08-05-2024 End: 08-05-2024 ambulatory DIYA [...] miscarriage Start: 07-08-2024 End: 07-08-2024 ambulatory SAMMIE NEFTAYL Not Available Start: 07-01-2024 End: 07-01-2024 Clinisync [...] Date Procedure Procedure Detail Performing Clinician Start: 12-11-2024 Urnls dip stick/tabl et rgnt non-auto w/o micrscp Sammie Neftaly DO Work Phone: Start: 12-09-2024 US OB BPP W NON-STRESS [...] Phone: Start: 03-23-2024 [facility] PREG QUANT HCG Emmy jimenez Neftaly DO Work Phone: Start: 12-08-2020 Delivery of Products of Conception, External Approach DR ASMMIE HIGGINBOTHAM Start: 12-08-2020 Drainage of Amniotic Fluid, Therapeutic from Products of Conception, Via Natural or Artificial Opening DR SAMMIE HIGGINBOTHAM Start: 12-08-2020 Introduction of Othe r Hormone into Peripheral Vein, Percutaneous Approach DR SAMMIE HIGGINBOTHAM Start: 12-08-2020 Repair Perineum Skin , External Approach DR SAMMIE HIGGINBOTHAM Plan of Treatment Date Care Activity Detail Author Start: 08-05-2029 Screening for malign ant neoplasm of cervix [facility] Start: 03-15-2028 Screening for malign ant neoplasm of cervix [facility] Start: 02-03-2025 Influenza vaccination [facility] Start: 12-11-2024 End: 12-11-2025 CULTURE, GROUP B STREP WITH SUSCEPTIBLITY CULTURE, GROUP B STREP WITH SUSCEPTIBLITY Lab Routine Third trimester ([facility]) Expected: 12/11/2024, Expires: 12/11/2025 [facility] Work Phone: Comment on above: Expected: 12/11/2024 , Expires: 12/11/2025 Start: 12-11-2024 End: 12-11-2024 Patient encounter procedure [...] control unspecified Expected: 10/30/2024 (Approximate), Expires: 05/02/2025 [facility] Work Phone: Comment on above: [...] mellitus screening Expected: 09/02/2024 (Approximate), Expires: 09/02/2025 [facility] Work Phone: Comment on above: [...] AM EDT Ancillary Procedure [facility] [address] [place] [address] [place] [address] [facility] Start: 08-05-2024 End: [...] mellitus screening Expected: 07/08/2024 (Approximate), Expires: 07/08/2025 [facility] Work Phone: Comment on above: Expected: 07/08/2024 (Approximate), Expires: 07/08/2025 Start: 07-08-2024 End: 07-08-2024 Patient encounter procedure [facility] Comment on above: Arrived Start: 06-07-2024 End: 06-07-2025 ABO/Rh ABO/Rh Lab Routine Missed menses , unspecified gestational age Expected: 06/07/2024 (Approximate), Expires: 06/07/2025 [facility] Comment on above: Expected: 06/07/2024 (Approximate), Expires: 06/07/2025 Start: 06-07-2024 End: 06-07-2025 Blood type and Indirect antibody screen panel - Blood Type and screen Lab Routine Missed menses , unspecified gestational age Expected: 06/07/2024 (Approximate), Expires: 06/07/2025 [facility] Work Phone: Comment on above: Expected: [...] 04-19-2024 ambulatory 04/19/2024 10:00 AM EST Initial [facility] [address] [place] [address] [place] [address] [facility] Start: 04-19-2024 End: 04-19-2024 Professional / ancillary services management 04/19/2024 9:30 AM EST Ancillary Procedure [facility] [address] [place] [address] [facility] Start: 02-04-2024 Influenza vaccination Influenza Vacc ine (#1) [facility] Start: 2013 Screening for malign ant neoplasm of cervix Pap Smear [facility] Bacteria identified in Urine by Culture Urine culture Microbiology Routine Missed menses Ordered: 06/07/2024 [facility] Comment on above: Ordered: 06/07/2024 CBC W Auto Different ial panel - Blood CBC and differential Lab Routine Missed menses , unspecified gestational age Ordered: 06/07/2024 [facility] Comment on above: Ordered: 06/07/2024 CHLAMYDIA TRACHOMATI S (GENITO/STI) CHLAMYDIA TRACHOMATIS (GENITO/STI) Lab Routine Exposure to STD Ordered: 08/05/2024 [facility] Comment on above: Ordered: 08/05/2024 Cytology Cervical or vaginal smear or scraping study Pap Smear Pathology and Cytology Routine Well woman exam with routine gynecological exam Ordered: 08/05/2024 [facility] Comment on above: Ordered: 08/05/2024 Hemoglobin A1c/Hemoglobin.total in Blood Hemoglobin A1c Lab Routine Missed menses , unspecified gestational age Ordered: 06/07/2024 [facility] Comment on above: Ordered: 06/07/2024 Hepatitis B virus surface Ag [Presence] in Serum or Plasma by Immunoassay Hepatitis B surface antigen Lab Routine Missed menses , unspecified gestational age Ordered: 06/07/2024 [facility] Comment on above: Ordered: 06/07/2024 Hepatitis C virus Ab [Presence] in Serum or Plasma by Immunoassay Hepatitis C antibody Lab Routine Missed menses , unspecified gestational age Ordered: 06/07/2024 [facility] Comment on above: Ordered: 06/07/2024 HIV-1/HIV-2 antigen/antibody combination immunoassay HIV-1 and HIV-2 antibodies Lab Routine Missed menses , unspecified gestational age Ordered: 06/07/2024 [facility] Comment on above: Ordered: 06/07/2024 Human papilloma viru s DNA [Presence] in Unspecified specimen by Probe with amplification HPV DNA probe, amplified Microbiology Routine Well woman exam with routine gynecological exam Ordered: 08/05/2024 [facility] Comment on above: Ordered: 08/05/2024 Neisseria gonorrhoea e DNA [Presence] in Unspecified specimen by ESTEBAN with probe detection Neisseria gonorrhea DNA probe, direct Lab Routine Exposure to STD Ordered: 08/05/2024 [facility] Comment on above: Ordered: 08/05/2024 Reagin Ab [Presence] in Serum by RPR RPR Lab Routine Missed menses , unspecified gestational age Ordered: 06/07/2024 [facility] Comment on above: Ordered: 06/07/2024 Rubella antibody, IgG Rubella an tibody, IgG Lab Routine Missed menses , unspecified gestational age Ordered: 06/07/2024 [facility] Comment on above: Ordered: 06/07/2024 SURESWAB(R) ADVANCED VAGINITIS PLUS, TMA SURESWAB(R) ADVANCED VAGINITIS PLUS, TMA Pathology and Cytology Routine Exposure to STD Ordered: 08/05/2024 [facility] Work Phone: Comment on above: Ordered: 08/05/2024 [facility] TOTAL PROTEIN 24 HOUR URINE [facility] TOTAL PROTEIN 24 HOUR URINE Lab Ordered: 11/13/2024 [facility] Comment on above: Ordered: 11/13/2024 Immunizations Immunization Date Immunization Notes Care Provider Khai lopez 05-09-2019 influenza virus vacc ine, unspecified formulation Sammie Higginbotham DO Work Phone: [facility] Payers Date Payer Category Payer Private Health Insurance [facility] MEDICAID [id number] 2017 Medicaid [id number] 1992 Unknown [id number] 2.16.840.1.869981.3.579.2. 593 1992 Unknown [id number] 2.16.840.1.073288.3.579.2. 593 1992 Unknown [id number] 2.16.840.1.389553.3.579.2. 593 1992 Unknown [id number] 2.16.840.1.103248.3.579.2. 593 1992 Unknown [id number] 2.16.840.1.127872.3.579.2. 593 1992 Unknown [id number] 2.16.840.1.653096.3.579.2. 593 1992 Unknown [id number] 2.16.840.1.343285.3.579.2. 593 1992 Unknown [id number] 2.16.840.1.631740.3.579.2. 593 1992 Unknown [id number] 2.16.840.1.558344.3.579.2. 593 1992 Unknown [id number] 2.16.840.1.311385.3.579.2. 1259 1992 Unknown [id number] 2.16.840.1.579313.3.579.2. 1259 1992 Unknown [id number] 2.16.840.1.925654.3.579.2. 1259 1992 Unknown [id number] 2.16.840.1.973517.3.579.2. 1259 1992 Unknown [id number] 2.16.840.1.887867.3.579.2. 1259 1992 Unknown [id number] 2.16.840.1.065926.3.579.2. 9 1992 Unknown [id number] 2.16.840.1.527724.3.579.2. 9 1992 Unknown [id number] 2.16.840.1.601420.3.579.2. 9 1992 Unknown [id number] 2.16.840.1.150329.3.579.2. 9 1992 Unknown [id number] 2.16.840.1.618344.3.579.2. 9 1992 Unknown [id number] 2.16.840.1.195130.3.579.2. 9 1992 Unknown [id number] 2.16.840.1.128866.3.579.2. 1259 1959 Self-pay [id number] 1957 Unknown [id number] Social History Date Type Detail Facility Tobacco smoking stat [facility] Tobacco smoking consumption unknown [facility] Start: 1990 Sex assigned at Not [...] meal for a total of 4times daily. [id number] Start: 10-01-2024 End: 11-13-2024 1 each by In Vit ro route Daily Use to check FSBS four times daily [id number] Start: 10-01-2024 End: 11-13-2024 Clinical Notes 06-07-2024 to 12-11-2024 Madie Maldonado LPN - 12/11/2024 11:20 AM Kelley Maldonado LPN - 11/27/2024 11:30 AM MARLEN Amaya - 11/13/2024 10:30 AM Kelley Maldonado LPN - 10/30/2024 10:50 AM EDT Note Date & Type Note Facility 12-11-2024 History of Presen t illness Narrative Reason for Appointment: Patient ID: Janina Martel is a 34 y.o. female who presents for No chief complaint on file. Patient presents today for Return OB appointment. MEDICATIONS Current Outpatient Medications Medication Instructions Alcohol Swabs (Alcohol Prep Pad) 70 % pads 1 Pad, Topical, Daily, Use four times daily to check FSBS. Blood Glucose Monitoring Suppl (5 [employer] Glucometer) w/Device kit 1 kit, Does not [...] nursing note reviewed. Exam conducted with a gis consultant present. Vitals: There is no height or weight on file to calculate BMI. BP: 130/82 Patient's last menstrual period was 04/01/2024. ASSESSMENT & PLAN ICD-10-CM 1. 36 weeks gestation of ([facility]) Z3A.36 POCT urinalysis dipstick manually resulted 2. Third trimester ([facility]) Z34.93 POCT urinalysis dipstick manually resulted CULTURE, GROUP B STREP WITH SUSCEPTIBLITY CULTURE, GROUP B STREP WITH SUSCEPTIBLITY 3. Hypertension affecting in third trimester ([facility]) O16.3 4. Gestational diabetes mellitus (GDM), antepartum, gestational diabetes method of control unspecified ([facility]) O24.419 5. H/O pre-eclampsia in prior , currently ([facility]) O09.299 Patient is doing well but has [...] Sammie Higginbotham DO documented in this encounter [facility] 11-27-2024 History of Presen t illness Narrative [...] nursing note reviewed. Exam conducted with a gis consultant present. Vitals: There is no height or weight on file to calculate BMI. BP: 140/86 Patient's last menstrual period was 04/01/2024. ASSESSMENT & PLAN ICD-10-CM 1. Third trimester ([facility]) Z34.93 POCT urinalysis dipstick manually resulted 2. 34 weeks gestation of ([facility]) Z3A.34 3. Hypertension affecting in third trimester ([facility]) O16.3 labetalol (Normodyne) 100 MG tablet 4. Gestational diabetes mellitus (GDM), antepartum, gestational diabetes method of control unspecified ([facility]) O24.419 5. H/O pre-eclampsia in prior , currently ([facility]) O09.299 Return OB: Patient presents today for [...] Sammie Higginbotham DO documented in this encounter [facility] 11-13-2024 History of Presen t illness Narrative [...] of: MARLEN Estrada documented in this encounter [facility] 10-30-2024 History of Presen t [...] to check FSBS. Blood Glucose Monitoring Suppl ([employer] Glucometer) w/Device kit 1 kit, Does not [...] nursing note reviewed. Exam conducted with a gis consultant present. Vitals: There is no height or [...] Sammie Higginbotham DO documented in this encounter [facility] 10-01-2024 History of Presen t [...] nursing note reviewed. Exam conducted with a gis consultant present. Vitals: There is no height or [...] Lin Sellers NP documented in this encounter [facility] 09-02-2024 History of Presen t [...] nursing note reviewed. Exam conducted with a gis consultant present. Vitals: There is no height or [...] Sammie Higginbotham DO documented in this encounter [facility] 08-05-2024 History of Presen t [...] nursing note reviewed. Exam conducted with a gis consultant present. Vitals: There is no height or [...] of: MARLEN Estrada documented in this encounter [facility] 07-08-2024 History of Presen t [...] Sammie Higginbotham DO documented in this encounter [facility] 06-07-2024 History of Presen t [...] currently ([facility]) [facility] Diagnosis 36 weeks gestation of ([facility]) Third trimester ([facility]) state, incidental Hypertension affecting in third trimester ([facility]) Gestational diabetes mellitus (GDM), antepartum, gestational diabetes method of control unspecified ([facility]) H/O pre-eclampsia in prior , currently ([facility]) documented in this encounter [facility] Summary Purpose Family History No Family History Records FoundNo Family History Records Found Advance Directives No Advanced Directives Records FoundNo Advanced Directives Records Found Additional Source Comments INFORMATION SOURCE (unrecogn ized section and content) DATE CREATED AUTHOR 11/24/2021 Naya bustamante DATE CREATED AUTHOR 'S ORGANIZ ATION 12/15/2024 [facility] EPIC Care Teams (unrecognized sec tion and content) Mop Man Relationship Specialty Start Date End Date Sammie Higginbotham DO [address] [place] [address] [place] [address] [facility] 09/04/23 Mop Man Relationship Specialty Start Date End Date Neftaly, Sammie, DO [address] [place] [address] PCP [facility] 09/04/23 Mop Man Relationship Specialty Start Date End Date Neftaly, Sammie, DO [address] [place], [facility] 09/04/23 Mop Man Relationship Specialty Start Date End Date Neftaly, Sammie, DO [address], [facility]11 [facility] 09/04/23 Mop Man Relationship Specialty Start Date End Date Neftaly, Sammie, DO [address], [facility]11 [facility] 09/04/23 Mop Man Relationship Specialty Start Date End Date Neftaly, Sammie, DO [address], [facility]11 [facility] 09/04/23 Mop Man Relationship Specialty Start Date End Date Neftaly, Sammie, DO [address] [place] [address] [facility] 09/04/23 Mop Man Relationship Specialty Start Date End Date Neftaly, Sammie, DO [address] [place] [address] [facility] 09/04/23 Mop Man Relationship Specialty Start Date End Date Sammie Higginbotham, DO [address] [place] [address] [facility] 09/04/23 Mop Man Relationship Specialty Start Date End Date Sammie Higginbotham, DO [address] [place] [address] [facility] 09/04/23 Mop Man Relationship Specialty Start Date End Date Sammie Higginbotham, DO [address] [place] [address] [facility] 09/04/23 Mop Man Relationship Specialty Start Date End Date Sammie Higginbotham, DO [address] [place] [address] [facility] 09/04/23 Mop Man Relationship Specialty Start Date End Date Sammie Higginbotham, DO [address] [place] [address] [facility] 09/04/23 Reason for Visit (unrecogniz ed section [...] BE BASED ON THE PRIMARY CLINICAL RECORDS. [facility] provides no warranty or guarantee of the accuracy or completeness of information in this document.
--- OUTSIDE RECORDS SUMMARY | 2024-12-16 04:59 | XMS_ITS | Encounter Summary ---
Author Organization [facility] Address [address] [place] [address] Care Team Providers Care Technical Cable Jointer Name Role Phone Michael Higginbotham DO Unavailable Encounter Details Date Type Department Care Team (Late st Contact Info) Description 07/01/2024 Abstract [facility] [address] [place] [address] Michael Higginbotham DO [address], [facility] Social History Tobacco Use Types Packs/Day Years [...] on filedocumented in this encounter Care Teams Technical Cable Jointer Relationship Specialty Start Date End Date Michael Higginbotham DO [address] [place], [place] [id number] PCP - [facility] 09/04/23 documented as of this encounter
--- OUTSIDE RECORDS SUMMARY | 2024-12-16 04:59 | XMS_ITS | Encounter Summary ---
Author Organization [facility] Address [address] [facility] [place] [address] Care Team Providers Care Tool Crib Clerk Name Role Phone Michael Higginbotham DO Unavailable Encounter Details Date Type Department Care Team (Late st Contact Info) Description 11/13/2024 Abstract [facility] [address] [place] [address] Michael Higginbotham DO [address], [facility] Social History Tobacco Use Types Packs/Day [...] on filedocumented in this encounter Care Teams Tool Crib Clerk Relationship Specialty Start Date End Date Michael Higginbotham DO [address] [place], [place] [id number] PCP - [facility] 09/04/23 documented as of this encounter
--- OUTSIDE RECORDS SUMMARY | 2024-12-16 04:59 | XMS_ITS | Encounter Summary ---
Author Organization [facility] Address [address] [place] [address] Care Team Providers Care Forklift Operator Name Role Phone Michael Higginbotham DO Unavailable Encounter Details Date Type Department Care Team (Late st Contact Info) Description 10/07/2024 Abstract [facility] [address] [place] [address] Michael Higginbotham DO [address], [facility] Social History Tobacco Use Types [...] on filedocumented in this encounter Care Teams Forklift Operator Relationship Specialty Start Date End Date Michael Higginbotham DO [address], [place] [id number] PCP - [facility] 09/04/23 documented as of this encounter
--- OUTSIDE RECORDS SUMMARY | 2024-12-16 04:59 | XMS_ITS | Encounter Summary ---
Author Organization [facility] Address [address] [facility] [place] [address] Care Team Providers Care Surgical Garment Fitter Name Role Phone Michael Higginbotham DO Unavailable Encounter Details Date Type Department Care Team (Late st Contact Info) Description 10/01/2024 Abstract [facility] [address] [place] [address] Michael Higginbotham DO [address], [facility]11 Social History Tobacco Use Types [...] on filedocumented in this encounter Care Teams Surgical Garment Fitter Relationship Specialty Start Date End Date Michael Higginbotham DO [address], [place] [id number] PCP - [facility] 09/04/23 documented as of this encounter
--- OUTSIDE RECORDS SUMMARY | 2024-12-16 05:00 | XMS_ITS | Encounter Summary ---
Author Organization [facility] Address [address] [place] [address] Care Team Providers Care Fugitive Detective Name Role Phone Neftaly Sammie DO Unavailable Encounter Details Date Type Department Care Team (Late st Contact Info) Description 12/09/2024 Clinisync Result Encounter [facility] External Department Unsolicited Sammie Higginbotham, [address] [place] [address] Social History Tobacco Use Types [...] on file documented as of this encounter Procedures Procedure Name Priority Date/Time Associated Diagnosis Comments US OB BPP W NON-STRESS 12/09/2024 10:51 AM EDT documented in this encounter Results * US OB BPP W NON-STRESS (12/09/2024 10:51 AM EDT) Anatomical Region Laterality Modality Other 12/09/2024 10:5 1 AM EDT Narrative 12/09/2024 10:53 AM EDT The [address] [address] Ultrasound Report Signed Patient: JANINA HUMMEL MR#: [id number] : 1990 Acct:[id number] Age/Sex: 34 / F ADM Date: 12/09/24 Loc: US Attending Dr: Sammie Higginbotham D.O. Ordering Physician: Sammie Higginbotham D.O. Date of Service: 12/09/24 Procedure(s): US OB BPP w non-stress Accession Number(s): [id number] cc: Sammie Higginbotham D.O.; Physician,Non-Staff [place] [id number] Patient Name: JANINA HUMMEL MRN: [facility]:[id number] date: 1990 Sex: F Assigned Patient Location: [facility] Current Patient Location: Accession/Order Number: [id number] Exam Date: 12/09/2024 10:50 Report Date: 12/09/2024 [...] Long M.D. 12/09/2024 10:51 AM Dictation Location: [place] [address] Electronically authenticated by: [id number] Y Date: 12/09/2024 10:51 Dictated By: Madie Long M.D. Signed By: 12/09/24 1053 DD/ 1051 TD/TT: Neurology Hospitalist: Procedure Note Radiology, Radiologist, MD - 12/09/2024 [place] [address] Ultrasound Report Signed Patient: JANINA HUMMEL LMR#: [id number] : 1990Acct:[id number] Age/Sex: 34 / FADM Date: 12/09/24 Loc: US Attending Dr: Sammie Higginbotham D.O. Ordering Physician: Sammie Higginbotham D.O. Date of Service: 12/09/24 Procedure(s): US OB BPP w non-stress Accession Number(s): [id number] cc: Sammie Higginbotham D.O.; Physician,Non-Staff [place] The [address] [address] Patient Name: JANINA HUMMEL MRN: [id number] date: 1990 Sex: F Assigned Patient Location: [facility] Current Patient Location: Accession/Order Number: [id number] Exam Date: 12/09/2024 10:50 Report Date: 12/09/2024 10:51 At the request of: SAMMIE HIGGINBOTHAM DO Procedure: US OB BPP w non-stress BIOPHYSICAL PROFILE: CLINICAL INFORMATION: GESTATIONAL DIABETES MELLITUS O24.419 COMPARISON: 12/02/2024 There is a single live intrauterine gestation in cephalic presentation.The reported gestational age is 36 weeks 0 days. The heart ratemeasures 159 beats per minute. FINDINGS: TONE: 1 [...] Long M.D. 12/09/2024 10:51 AM Dictation Location: [place] [address] Electronically authenticated by: [id number] Y Date: 0:51 Dictated By: Madie Long M.D. Signed By:12/09/24 1053 DD/ 1051 TD/TT: Neurology Hospitalist: Sammie Higginbotham DO [facility] Final Result documented in this encounter Visit Diagnoses Not on filedocumented in this encounter Care Teams Fugitive Detective Relationship Specialty Start Date End Date Sammie Higginbotham DO [address] [place] [address] [place] [address] PCP - [facility] 09/04/23 documented as of this encounter
--- OUTSIDE RECORDS SUMMARY | 2024-12-16 05:00 | XMS_ITS | Encounter Summary ---
Author Organization [facility] Address [address] [place] [address] Care Team Providers Care Online Project Manager Name Role Phone Neftaly Sammie DO Unavailable Encounter Details Date Type Department Care Team (Late st Contact Info) Description 12/02/2024 Clinisync Result Encounter [facility] External Department Unsolicited Sammie Higginbotham, [address] [place] [address] Social History Tobacco Use Types [...] AM EDT Narrative 12/02/2024 11:54 AM EDT The [address] [address] Ultrasound Report Signed Patient: JANINA HUMMEL MR#: [id number] : 1990 Acct:[id number] Age/Sex: 34 / F ADM Date: 12/02/24 Loc: US Attending Dr: Sammie Higginbotham D.O. Ordering Physician: Sammie Higginbotham D.O. Date of Service: 12/02/24 Procedure(s): US OB BPP w non-stress Accession Number(s): [id number] cc: Sammie Higginbotham D.O.; Physician,Non-Staff [place] [address] Patient Name: JANINA HUMMEL MRN: [facility]:[id number] date: 1990 Sex: F Assigned Patient Location: [facility] Current Patient Location: Accession/Order Number: [id number] Exam Date: 12/02/2024 11:51 Report Date: 12/02/2024 [...] Long M.D. 12/02/2024 11:52 AM Dictation Location: [place] [address] Electronically authenticated by: [id number] Y Date: 12/02/2024 11:52 Dictated By: Madie Long M.D. Signed By: 12/02/24 1154 DD/ 1152 TD/TT: Manager Math: Procedure Note Radiology, Radiologist, - 12/02/2024 [place] [address] Ultrasound Report Signed Patient: JANINA HUMMEL LMR#: [id number] : 1990Acct:[id number] Age/Sex: 34 / FADM Date: 12/02/24 Loc: US Attending Dr: Sammie Higginbotham D.O. Ordering Physician: Sammie Higginbotham D.O. Date of Service: 12/02/24 Procedure(s): US OB BPP w non-stress Accession Number(s): [id number] cc: Sammie Higginbotham D.O.; Physician,Non-Staff [place] The [place] [id number] Patient Name: JANINA HUMMEL MRN: [id number] date: 1990 Sex: F Assigned Patient Location: [facility] Current Patient Location: Accession/Order Number: [id number] Exam Date: 12/02/2024 11:51 Report Date: 12/02/2024 [...] Long M.D. 12/02/2024 11:52 AM Dictation Location: [place] [address] Electronically authenticated by: [id number] Y Date: 1:52 Dictated By: Madie Long M.D. Signed By:12/02/24 1154 DD/ 1152 TD/TT: Manager Math: Sammie Higginbotham DO [facility] Final Result documented in this encounter Visit Diagnoses Not on filedocumented in this encounter Care Teams Online Project Manager Relationship Specialty Start Date End Date Sammie Higginbotham DO [facility] [address] [place] [id number] PCP - [facility] 09/04/23 documented as of this encounter
--- OUTSIDE RECORDS SUMMARY | 2024-12-16 05:00 | XMS_ITS | Encounter Summary ---
Author Organization [facility] Address [facility] [id number] [address] [place] [address] Care Team Providers Care Lap Cutter Name Role Phone No Pcp, No Pcp Primary Care Provider Unavailabl e Reason for Referral * Diagnostic Imaging (Routine) - Closed Specialty Diagnoses / Procedures Referred By Contac t Referred To Contact Maternal and Medicine Diagnoses Abnormal chromosomal and genetic finding on screening of mother History of pre-eclampsia Hx of delivery, currently Procedures US [facility] with or without consult Navarro Kee MD Phone: tel: fax: Maternal- Medicine at [place] [address] [place] [address] Phone: tel: fax: Referral ID Status Reason Start Date Expiration Date Visits Re quested Visits Authorized [id number] Closed 08/24/2020 08/24/2021 1 1 Encounter Details Date Type Department Care Team (Late st Contact Info) Description 08/24/2020 Orders Only [facility]aternal- [facility] at [place] [address] [place] [phone] Navarro Kee MD [address] [facility], [address] [place] [address] Abnormal chromosomal and genetic finding on screening [...] Final 09/21/2020 11:31) PATIENT INFO: ID #: [id number] : [birth year] (30 yrs)(F) Name: JANINA MC Visit Date: 09/21/2020 10:06 HUMMEL PERFORMED BY: Performed By: Margret Hernandez RDMS Attending: Wes Szymanski MD Referred By: Michael Higginbotham DO Ref. Address: [address] [place] [address] [place]. [place] [address] Location: Maternal Medicine [facility] SERVICE(S) PROVIDED: OB Follow-up, 1 fetus [address]7225 Echocardiogram-complete 53174 INDICATIONS: Screening for follow-up survey Z36.2 History [...] Arch: Previously seen SVC: Previously seen Cardiac Wells: Appears normal Diaphragm: Appears normal 3 Vessel [...] up with the patient as necessary. Wes Szmyanski MD Electronically Signed Final Report 09/21/2020 11:31 Procedure Note Wes Szymanski MD - 09/21/2020 OBSTETRICS REPORT (Signed Final 09/21/2020 11:31) PATIENT INFO: ID #: [id number] : [birth year] (30 yrs)(F) Name: JANINA MC Visit Date: 09/21/2020 10:06 HUMMEL PERFORMED BY: Performed By: Margret Hernandez RDMS Attending: Wes Szymanski MD Referred By: Michael Duncan. Address: [address] [place] [address] [place] [address] Location: Maternal Medicine [facility] SERVICE(S) PROVIDED: OB Follow-up, 1 fetus [address]79 Echocardiogram-complete 03423 INDICATIONS: Screening for follow-up survey Z36.2 History [...] Arch: Previously seen SVC: Previously seen Cardiac Wells: Appears normal Diaphragm: Appears normal 3 Vessel [...] trimester documented in this encounter Care Teams Lap Cutter Relationship Specialty Start Date End Date No Pcp, No Pcp [place] [address] PCP - General Family Medicine 02/26/20 documented as of this encounter
--- OUTSIDE RECORDS SUMMARY | 2024-12-16 05:00 | XMS_ITS | Encounter Summary ---
Author Organization [facility] Address [address] [place] [address] Care Team Providers Care Roto Mixer Operator Name Role Phone NeftalyEmmy bolanosy DO Unavailable Encounter Details Date Type Department Care Team (Late st Contact Info) Description 12/03/2024 Telephone [facility] OB [address] [place] [address] Neftaly Michael, [address] [place] [address] Social History Tobacco Use Types Packs/Day [...] on filedocumented in this encounter Care Teams Roto Mixer Operator Relationship Specialty Start Date End Date Michael Higginbotham DO [address] [place] [address] PCP - [facility] 09/04/23 documented as of this encounter
--- OUTSIDE RECORDS SUMMARY | 2024-12-16 05:00 | XMS_ITS | Encounter Summary ---
Author Organization [facility] Address [address] [place] [address] Care Team Providers Care Curing Pickling Packer Name Role Phone Neftaly, Michael DO Unavailable Encounter Details Date Type Department Care Team (Late st Contact Info) Description 12/11/2024 Abstract [facility] BCP OB [address] [place] [address] Paola Centeno MA Social History Tobacco Use Types Packs/Day Years [...] on filedocumented in this encounter Care Teams Curing Pickling Packer Relationship Specialty Start Date End Date Michael Higginbotham DO [address] [place], [facility] PCP - [facility] 09/04/23 documented as of this encounter
--- OUTSIDE RECORDS SUMMARY | 2024-12-16 05:00 | XMS_ITS | Clinical Summary ---
Author Organization [facility] Address [id number] [address] [place] [address] Care Team Providers Care Food Production Supervisor Name Role Phone No Pcp, No [...] on file Insurance [employer] Care Teams Food Production Supervisor Relationship Specialty Start Date End Date No Pcp, [place] [address] PCP - General Family Medicine 02/26/20
--- OUTSIDE RECORDS SUMMARY | 2024-12-16 05:00 | XMS_ITS | Encounter Summary ---
Author Organization [facility] Address [address] [facility] [place] [address] Care Team Providers Care Keg Varnisher Name Role Phone Neftaly, Michael DO Unavailable Encounter Details Date Type Department Care Team (Late st Contact Info) Description 08/19/2024 Orders Only [facility] BCP OB [address] [place] [phone] Isabel Keating MA [address] [place] [address] Social History Tobacco Use Types Packs/Day Years [...] on filedocumented in this encounter Care Teams Keg Varnisher Relationship Specialty Start Date End Date Michael Higginbotham DO [address] [place], [place] [phone] PCP - [facility] 09/04/23 documented as of this encounter
--- OUTSIDE RECORDS SUMMARY | 2024-12-16 05:00 | XMS_ITS | Encounter Summary ---
Author Organization [facility] Address [address] [place] [facility] [place] [address] Care Team Providers Care Quality Manager Name Role Phone Michael Higginbotham DO Unavailable Encounter Details Date Type Department Care Team (Late st Contact Info) Description 12/11/2024 Bamboo flowsheet [facility]CP OB [address] [place] [phone] Michael Higginbotham DO [address] [place], [facility] Social History Tobacco Use Types Packs/Day [...] on filedocumented in this encounter Care Teams Quality Manager Relationship Specialty Start Date End Date Michael Higginbotham DO [address] [place], [facility] PCP - [facility] 09/04/23 documented as of this encounter
--- OUTSIDE RECORDS SUMMARY | 2024-12-16 05:00 | XMS_ITS | Encounter Summary ---
Author Organization [facility] Address [address] [facility] [place] [address] Care Team Providers Care Residential Energy Auditor Name Role Phone Michael Higginbotham DO Unavailable Encounter Details Date Type Department Care Team (Late st Contact Info) Description 12/11/2024 Abstract [facility] BCP OB [address] [place] [address] Michael Higginbotham DO [address] [place], [facility] Social History Tobacco Use Types Packs/Day [...] on filedocumented in this encounter Care Teams Residential Energy Auditor Relationship Specialty Start Date End Date Michael Higginbotham DO [address] [place], [place] [phone] PCP - [facility] 09/04/23 documented as of this encounter
--- OUTSIDE RECORDS SUMMARY | 2024-12-16 05:00 | XMS_ITS | Encounter Summary ---
Author Organization [facility] Address [address] [facility] [place] [address] Care Team Providers Care Studio Designer Name Role Phone Michael Higginbotham DO Unavailable Encounter Details Date Type Department Care Team (Late st Contact Info) Description 12/11/2024 Abstract [facility] BCP OB [address] [place] [address] Michael Higginbotham DO [address] [place], [facility]11 Social History Tobacco Use Types [...] on filedocumented in this encounter Care Teams Studio Designer Relationship Specialty Start Date End Date Michael Higginbotham DO [address] [place], [place] [phone] PCP - [facility] 09/04/23 documented as of this encounter
--- OUTSIDE RECORDS SUMMARY | 2024-12-16 05:00 | XMS_ITS | Encounter Summary ---
Author Organization [facility] Address [address] [facility] [place] [address] Care Team Providers Care School Services Officer Name Role Phone Michael Higginbotham DO Unavailable Encounter Details Date Type Department Care Team (Late st Contact Info) Description 09/05/2024 Abstract [facility] BCP OB [address] [place] [address] Michael Higginbotham DO [address] [place], [facility]11 Social History Tobacco Use Types [...] on filedocumented in this encounter Care Teams School Services Officer Relationship Specialty Start Date End Date Michael Higginbotham DO [address] [place], [place] [phone] PCP - [facility] 09/04/23 documented as of this encounter
[2024-12-16] MEDS: 0.9 % SODIUM CHLORIDE 1,000 ML 125 ML IV (06:00)
[2024-12-16] MEDS: AMPICILLIN SODIUM 2,000 MG in 0.9 % SODIUM CHLORIDE 100 ML 200 MG IV (06:01)
[2024-12-16] MEDS: OXYTOCIN/0.9 % SODIUM CHLORIDE 10 UNITS/500 ML PLAST..BAG 6 UNIT IV (06:02)
[2024-12-16 06:39] LABS: Hematocrit 30.2 % (36.0-48.0); Hemoglobin 9.5 g/dL (12.0-16.0); Mean Corpuscular HGB Conc 31.5 g/dL (29.9-35.2); Mean Corpuscular Hemoglobin 24.9 pg (26.7-34.0); Mean Corpuscular Volume 79.3 fL (81.0-99.0); Platelet Count 220 10^3/uL (150-450); Red Blood Count 3.81 10^6/uL (4.20-5.40); White Blood Count 13.3 10^3/uL (4.0-11.0)
[2024-12-16 06:56] LABS: Cannabinoid Screen Urine NEGATIVE (NEGATIVE); Methamphetamines Screen Urine NEGATIVE (NEGATIVE); Tricyclic Antidepressant Urine NEGATIVE (NEGATIVE)
[2024-12-16] MEDS: AMPICILLIN SODIUM 1,000 MG in 0.9 % SODIUM CHLORIDE 50 ML 100 MG IV (10:16)
--- NOTE | 2024-12-16 10:44 | PM.OBPRCVD ---
Procedure Intrapartal events: None Induction method: per pitocin protocol Delivery augmentation: rupture of membranes and pitocin Delivery monitor: external FHT and external uterine Route of delivery: Episiotomy Description: none L&D Laceration Description: none Anesthesia type: None Disposition: floor Delivery date: 12/16/24 Gender: male presentation: vertex Placental delivery description: Spontaneous cord description: 3 Vessels
[2024-12-16] MEDS: OXYTOCIN/0.9 % SODIUM CHLORIDE 20 UNITS/1,000 ML PLAST..BAG 125 UNIT IV (11:09)
[2024-12-16] MEDS: LABETALOL HCL 100 MG TABLET 200 MG PO (20:14)
[2024-12-17 00:32] VITALS: BP 131/75; PULSE 96; TEMP 36.2
[2024-12-17 06:22] LABS: Hematocrit 25.3 % (36.0-48.0); Hemoglobin 8.0 g/dL (12.0-16.0); Immature Granulocytes Abs Auto 0.16 10^3/uL (0.00-0.03); Immature Granulocytes Pct Auto 1.1 % (0.0-0.5); Lymphocytes Absolute Auto 2.5 10^3/uL (1.2-3.8); Mean Corpuscular HGB Conc 31.6 g/dL (29.9-35.2); Mean Corpuscular Hemoglobin 25.1 pg (26.7-34.0); Mean Corpuscular Volume 79.3 fL (81.0-99.0); Platelet Count 185 10^3/uL (150-450); Red Blood Count 3.19 10^6/uL (4.20-5.40); White Blood Count 14.7 10^3/uL (4.0-11.0)
--- NOTE | 2024-12-17 07:40 | PM.OBPN ---
OB - PN: Subj Subjective Patient comments: no complaints and pain well controlled [place] status: doing well Exam Constitutional Vital Signs, click to edit/add: Last Vital Signs Temp 97.2 F L 12/17/24 00:32 Pulse 96 H 12/17/24 00:32 Resp 16 12/16/24 16:56 BP 131/75 12/17/24 00:32 O2 Del Method Room Air 12/17/24 00:30 Documenting provider has reviewed patient's vital signs: yes Common normals: no apparent distress Respiratory Common normals: normal respiratory effort and clear to auscultation bilaterally Cardio Common normals: regular rate and regular rhythm GI Common normals: Normal to inspection, nondistended, normoactive bowel sounds present Extremity Common normals: no clubbing, cyanosis or edema and no calf tenderness Results Labs Labs: Short CBC 12/17/24 Range/Units 06:15 WBC 14.7 H (4.0-11.0) 10^3/uL Hgb 8.0 L (12.0-16.0) g/dL Hct 25.3 L (36.0-48.0) % Plt Count 185 (150-450) 10^3/uL OB - PN: A/P Plan - Vaginal Delivery day: 1 Plan: routine care, discharge home and follow up 6 weeks Time Spent with Patient Time: Total time spent is greater than 50% in coordination of care (as documented) at patient's floor/unit and/or counseling patient: Total time spent with greater than 50% in coordination of care (as documented) at patient's floor/unit and/or counseling patient: less than 15 minutes
[2024-12-17 07:52] VITALS: BP 160/96; PULSE 97
[2024-12-17 07:55] VITALS: TEMP 37.1
[2024-12-17 07:58] VITALS: BP 129/80; PULSE 90
[2024-12-17] MEDS: LABETALOL HCL 100 MG TABLET 200 MG PO (08:14)
[2024-12-17] MEDS: DOCUSATE SODIUM 100 MG CAPSULE PO (08:14)
== END 2024-12-17 17:00 | disposition home or self-care (01) | DRG 560 ==
PROVIDERS: Admitting Provider Obstetrics & Gynecology; Visit Provider Obstetrics & Gynecology
DX: O14.94 Unspecified pre-eclampsia, complicating childbirth (principal); O16.4 Unspecified maternal hypertension, complicating childbirth; Z3A.37 37 weeks gestation of pregnancy; Z37.0 Single live birth
CPT/HCPCS: 36415; 80307; 85025; 85027; 86850; 86900; 86901; J0290; J2300